=== PATIENT | male | born 1935 | race Caucasian/White ===

== ENCOUNTER → 2017-04-10 | Outpatient (CLI) | payer MEDICARE, OTHER, SELFPAY ==
[2017-04-10 14:10] LABS: Absolute Lymphocyte Count 1.05 X10^3/ul (0.83-4.51); Absolute Neutrophil Count 3.7 X10^3/uL (2.0-7.7); Basophil# 0.04 X10^3/uL; Basophil% 0.7 % (0-1); Eosinophil# 0.22 X10^3/uL; Eosinophils% 3.9 % (0-5); Hematocrit 41.6 % (40-54); Hemoglobin 13.2 g/dl (13.0-16.5); Lymphocyte # 1.05 X10^3/ul (4.0); Lymphocyte % 18.4 % (19-41); Mean Corp Hgb Conc 31.7 g/gl (32-36); Mean Corpuscular Hgb 31.2 pg (27.0-32.0); Mean Corpuscular Volume 98.3 fL (80-94); Mean Platelet Vol. 11.4 fl (6.2-12.0); Monocyte# 0.62 X10^3/uL; Monocyte% 10.9 % (0-10); Neutrophil # 3.74 X10^3/uL (2.7-7.7); Neutrophil % 65.6 % (47-70); Platelet Count 131 K/mm3 (150-450); RBC Distribution Width CV 15.4 % (11.6-14.6); RBC Distribution Width SD 54.1 fl (35.1-43.9); Red Blood Count 4.23 M/mm3 (4.6-6.2); White Blood Count 5.7 K/mm3 (4.4-11.0)
[2017-04-10 14:11] LABS: POSITIVE COUNT NO; POSITIVE DIFFERENTIAL NO; POSITIVE MORPHOLOGY NO
[2017-04-10 14:30] LABS: AST(SGOT) 18 U/L (15-37); Alanine Aminotransfer ALT/SGPT 26 U/L (16-61); Albumin, Serum 3.6 g/dL (3.2-5.0); Alkaline Phosphatase 71 U/L (45-117); Anion Gap 7 (5-15); BUN 23 mg/dL (7-18); BUN/Creat Ratio 14.4 RATIO (10-20); Calcium,Total 8.9 mg/dL (8.5-10.1); Chloride 107 mmol/L (98-107); EST Glomerular Filtration Rate 44 mL/min (>60); Est Glom Filt Rate - Afr Amer 54 mL/min (>60); Globulin 3.7 g/dL (2.2-4.2); Glucose 110 mg/dL (74-106); Protein, Total 7.3 g/dL (6.4-8.2); Sodium Level 141 mmol/L (136-145)
== END | disposition home or self-care (01) ==
PROVIDERS: Family Provider Family Medicine; PCP Family Medicine; Visit Provider Internal Medicine Rheumatology
DX: M06.4 Inflammatory polyarthropathy (principal); M1A.9XX1 Chronic gout, unspecified, with tophus (tophi); M17.0 Bilateral primary osteoarthritis of knee; M21.40 Flat foot [pes planus] (acquired), unspecified foot; I12.9 Hypertensive chronic kidney disease with stage 1 through stage 4 chronic kidney disease, or unspecified chronic kidney disease; N18.9 Chronic kidney disease, unspecified; E11.22 Type 2 diabetes mellitus with diabetic chronic kidney disease; E03.9 Hypothyroidism, unspecified; E78.5 Hyperlipidemia, unspecified; Z79.899 Other long term (current) drug therapy
CPT/HCPCS: 36415; 80053; 85025

== ENCOUNTER 2017-05-28 08:18 | Emergency (ER) | payer MEDICARE, OTHER, SELFPAY ==
[2017-05-28 08:19] VITALS: BP 118/70; PULSE 80; RESP 18; TEMP 36.2; O2SAT 94; BMI 28.8
--- NOTE | 2017-05-28 08:26 | EKG12_ITS ---
Test Reason : CP Blood Pressure : / mmHG Vent. Rate : 076 BPM Atrial Rate : 076 BPM P-R Int : 174 ms QRS Dur : 114 ms QT Int : 442 ms P-R-T Axes : 037 -17 113 degrees QTc Int : 497 ms Normal sinus rhythm ST & T wave abnormality, consider lateral ischemia Prolonged QT Abnormal ECG Confirmed by LEIDY GALLARDO, OLY ([id number]), editor sound VIRGILIO EVANS ([id number]) on 06/03/2017 8:54:47 AM Referred By: REANNA/ANISH Confirmed By:OLY FORBES MD
--- NOTE | 2017-05-28 08:30 | RAD_ITS ---
STUDY: X-RAY CHEST REASON FOR EXAM: Male, 81 years old. Chest pain. TECHNIQUE: Single AP portable view of the chest. COMPARISON: Comparison is made with prior study dated September 01, 2016. FINDINGS: EKG electrodes are seen. There now is evidence of increased markings with areas of confluence at the lung bases worse on the right side. This is suggestive bibasilar atelectasis and/or infiltrate superimposed on chronic interstitial scarring. There is blunting of both cosmetic angles. There is mild cardiac enlargement. A left-sided ICD is seen. Normal mediastinum and brooklynn. Normal visualized pulmonary arteries. There is atherosclerotic tortuosity of the aortic arch and descending thoracic aorta. There are diffuse degenerative changes of the visualized thoracic spine. Normal visualized ribs, clavicles, and shoulders. There is no demonstrated abnormality of the visualized soft tissue structures of the upper abdomen. RAD/Chest 1 View (Portable) IMPRESSION: Bibasilar atelectasis and/or infiltrate superimposed on bibasilar scarring. Blunting of both cost phrenic angles. Electronically Signed: Pablito Lloyd MD at 8:57 EDT Tel [phone], Service support ,
--- NOTE | 2017-05-28 08:50 | ED.DCSUM_ITS ---
- ER Visit Summary Date of Service: 05/28/17 Chief Complaint: Chest pain History of Present Illness: The patient is a 81 M history of non-insulin- dependent diabetes, renal insufficiency, hypothyroidism, gout, CAD with 3 cardiac stents, pacemaker defibrillator and prior CHF. Patient states the last 3 weeks he had intermittent mild dull aching chest discomfort worse at night. Also some shortness of breath. No hemoptysis. No leg pain or swelling. No recent travel, surgery or hospitalization. No history of DVT or PE. Physical Examination: Well appearing older male. Vital signs are stable and afebrile. His pulse ox is 94% room air no signs of hypoxia. No distress. HEENT exam unremarkable. Neck nontender no JVD. No lymphadenopathy. Lungs clear to auscultation bilaterally. Heart regular rate and rhythm no murmur. Chest wall nontender. Left-sided pacemaker defibrillator. Abdomen soft and nontender. Normal bowel sounds. No peritoneal signs. Moving all 4 extremities. Neurovascularly intact. Calves nontender without edema or cords. Test Results: EKG shows a sinus rhythm rate is 76 with inverted T waves in V4 5 and 6. Similar to her prior EKG with inverted T waves in 5 and 6 are new from an EKG from August 2016. CBC unremarkable with a platelet count of 118,000 previously was 126. Electrolytes unremarkable creatinine 1.7 which is his baseline normal gap. Troponin normal. Chest x-ray shows chronic changes bilateral atelectasis with scarring cannot rule out a right lower lobe infiltrate this is read by the radiologist and reviewed by myself also. Emergency Department Course and Treatment: Patient with atypical chest discomforts. Will undergo an evaluation including labs, EKG and chest x-ray. Treatment Plan: Will be started on Zithromax for a possible right lower lobe infiltrate he has had a chronic productive cough for weeks. But clinically looks well he is satting well we got him up and ambulating his pulse ox in the mid to high 90s the entire time. He does not have a white count or fever here. Disposition: discharge Impression: Acute atypical chest pain Rule out right lower lobe infiltrate This note was generated with [employer] dictation software. It may contain incorrect words, spelling, and punctuation that were not noted in review of the chart prior to signing ED Disposition - Plan for ED Patient: Chief Complaint: Chest Pain Referrals: Miguel Pineda MD [Primary Care Provider] -
[2017-05-28 09:08] VITALS: O2SAT 96
[2017-05-28] MEDS: Aspirin 81 MG TAB.CHEW 324 MG PO (09:13)
[2017-05-28 09:20] LABS: Absolute Lymphocyte Count 1.21 X10^3/ul (0.83-4.51); Absolute Neutrophil Count 3.1 X10^3/uL (2.0-7.7); Basophil# 0.02 X10^3/uL; Basophil% 0.4 % (0-1); Eosinophil# 0.24 X10^3/uL; Eosinophils% 4.7 % (0-5); Hematocrit 43.3 % (40-54); Hemoglobin 13.5 g/dl (13.0-16.5); Lymphocyte # 1.21 X10^3/ul (4.0); Lymphocyte % 23.6 % (19-41); Mean Corp Hgb Conc 31.2 g/gl (32-36); Mean Corpuscular Hgb 30.7 pg (27.0-32.0); Mean Corpuscular Volume 98.4 fL (80-94); Monocyte# 0.56 X10^3/uL; Monocyte% 10.9 % (0-10); Neutrophil % 60.4 % (47-70); Platelet Count 118 K/mm3 (150-450); RBC Distribution Width CV 15.4 % (11.6-14.6); RBC Distribution Width SD 55.4 fl (35.1-43.9); White Blood Count 5.1 K/mm3 (4.4-11.0)
[2017-05-28 09:22] LABS: POSITIVE COUNT NO; POSITIVE DIFFERENTIAL NO; POSITIVE MORPHOLOGY NO
[2017-05-28 09:38] LABS: BUN 25 mg/dL (7-18); Creatinine, Serum 1.72 mg/dL (0.70-1.30); Glucose 102 mg/dL (74-106)
[2017-05-28 09:39] LABS: Anion Gap 10 (5-15); BUN/Creat Ratio 14.5 RATIO (10-20); Calcium,Total 8.9 mg/dL (8.5-10.1); Chloride 110 mmol/L (98-107); EST Glomerular Filtration Rate 41 mL/min (>60); Est Glom Filt Rate - Afr Amer 49 mL/min (>60); Estimated Creatinine Clearance 35.87 ml/min; Potassium 4.1 mmol/L (3.5-5.1); Sodium Level 146 mmol/L (136-145)
--- NOTE | 2017-05-28 09:57 | NURSING ---
NO LW OR POA
[2017-05-28 10:12] VITALS: BP 134/95; PULSE 79; RESP 20; O2SAT 95
--- NOTE | 2017-05-28 10:34 | CASEMGMT ---
Social Work Note In to complete initial assessment as pt is anticipated to be admitted. Pt is accompanied by his daughter, Rupal, and SW introduced self and role at [facility]. The pt reports to live in a two-story home with his . States that he is able to manage the stairs, but he has everything he needs on the first level. Denies possession of or use of DME, and claims to be independent with ADLs. Confirms that his PCP is Dr. Pineda and he utilizes [facility] in [place]. Pt reports to have adequate supports among family that live locally and denies any anticipated discharge needs. Made aware that RN CM or SW will be available if discharge needs arise. Krystina Márquez, MANAGER GLOBAL, PROPERTY DISPOSAL OFFICER
[2017-05-28 11:36] VITALS: BP 142/75; PULSE 85; RESP 14; O2SAT 95; O2SAT 99
--- NOTE | 2017-05-28 11:47 | ED.DEP ---
ED Disposition - Plan for ED Patient: Disposition: Home or Assisted Living Chief Complaint: Chest Pain Instructions: ED Chest Pain Atypical Unkn Cause Prescriptions: Azithromycin [Zithromax] 250 mg PO DAILY #4 tab Referrals: Miguel Pineda MD [Primary Care Provider] - 3-5 Days Additional Instructions: Any of fluids and rest. Zithromax 1 pill a day starting tomorrow. Call and follow-up your primary care physician Dr. Pineda for repeat evaluation.
[2017-05-28 11:52] VITALS: BP 136/80; PULSE 72; RESP 14; O2SAT 96
[2017-05-28] MEDS: Azithromycin 250 MG Tablet 500 MG PO (11:57)
== END 2017-05-28 12:01 | disposition home or self-care (01) ==
PROVIDERS: Emergency Provider Emergency Medicine; Family Provider Family Medicine; PCP Family Medicine
DX: R07.89 Other chest pain (principal); I25.10 Atherosclerotic heart disease of native coronary artery without angina pectoris; E11.9 Type 2 diabetes mellitus without complications; I50.9 Heart failure, unspecified; E78.00 Pure hypercholesterolemia, unspecified; E03.9 Hypothyroidism, unspecified; M10.9 Gout, unspecified; Z95.5 Presence of coronary angioplasty implant and graft; Z95.810 Presence of automatic (implantable) cardiac defibrillator; Z79.02 Long term (current) use of antithrombotics/antiplatelets; Z79.82 Long term (current) use of aspirin; Z79.52 Long term (current) use of systemic steroids; Z79.899 Other long term (current) drug therapy
CPT/HCPCS: 71045; 80048; 84484; 85025; 93005; 99285; A4216

== ENCOUNTER → 2017-07-08 11:00 | Outpatient (CLI) | payer MEDICARE, OTHER, SELFPAY ==
[2017-07-08 12:29] LABS: Absolute Lymphocyte Count 1.08 X10^3/ul (0.83-4.51); Absolute Neutrophil Count 4.1 X10^3/uL (2.0-7.7); Basophil# 0.02 X10^3/uL; Basophil% 0.3 % (0-1); Eosinophils% 3.3 % (0-5); Hematocrit 43.8 % (40-54); Hemoglobin 13.9 g/dl (13.0-16.5); Lymphocyte # 1.08 X10^3/ul (4.0); Lymphocyte % 17.9 % (19-41); Mean Corp Hgb Conc 31.7 g/gl (32-36); Mean Corpuscular Hgb 31.4 pg (27.0-32.0); Mean Corpuscular Volume 99.1 fL (80-94); Mean Platelet Vol. 11.3 fl (6.2-12.0); Neutrophil # 4.12 X10^3/uL (2.7-7.7); Neutrophil % 68.3 % (47-70); Platelet Count 143 K/mm3 (150-450); RBC Distribution Width CV 15.2 % (11.6-14.6); RBC Distribution Width SD 54.5 fl (35.1-43.9); Red Blood Count 4.42 M/mm3 (4.6-6.2)
[2017-07-08 12:32] LABS: POSITIVE COUNT NO; POSITIVE DIFFERENTIAL NO; POSITIVE MORPHOLOGY NO
[2017-07-08 13:30] LABS: AST(SGOT) 19 U/L (15-37); Alanine Aminotransfer ALT/SGPT 20 U/L (16-61); Albumin, Serum 3.6 g/dL (3.2-5.0); Alkaline Phosphatase 75 U/L (45-117); Anion Gap 9 (5-15); BUN 34 mg/dL (7-18); BUN/Creat Ratio 17.3 RATIO (10-20); Chloride 111 mmol/L (98-107); Creatinine, Serum 1.96 mg/dL (0.70-1.30); EST Glomerular Filtration Rate 35 mL/min (>60); Est Glom Filt Rate - Afr Amer 42 mL/min (>60); Globulin 3.6 g/dL (2.2-4.2); Glucose 84 mg/dL (74-106); Protein, Total 7.2 g/dL (6.4-8.2); Sodium Level 147 mmol/L (136-145); Uric Acid 8.5 mg/dL (3.5-7.2)
== END ==
PROVIDERS: Family Provider Family Medicine; PCP Family Medicine; Visit Provider Internal Medicine Rheumatology
DX: M06.4 Inflammatory polyarthropathy (principal); Z79.899 Other long term (current) drug therapy; M15.9 Polyosteoarthritis, unspecified; M1A.9XX1 Chronic gout, unspecified, with tophus (tophi); M17.0 Bilateral primary osteoarthritis of knee; M21.40 Flat foot [pes planus] (acquired), unspecified foot; E11.22 Type 2 diabetes mellitus with diabetic chronic kidney disease; N18.9 Chronic kidney disease, unspecified; I12.9 Hypertensive chronic kidney disease with stage 1 through stage 4 chronic kidney disease, or unspecified chronic kidney disease
CPT/HCPCS: 36415; 80053; 84550; 85025

== ENCOUNTER 2017-08-04 13:23 | Emergency (ER) | payer OTHER, MEDICARE, SELFPAY ==
--- NOTE | 2017-08-04 13:23 | DT_ITS ---
This patient was seen during an EMR downtime July 28, 2017 - August 04, 2017. This patient may have a combination of paper and electronic documentation or all paper documentation. All documentation is viewable within the e-chart portion of [employer] for each patient visit.
[2017-08-04 13:24] VITALS: BP 120/70; PULSE 74; RESP 16; TEMP 35.9; O2SAT 96; BMI 28.1
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
[2017-08-04 16:49] VITALS: BP 129/58; PULSE 80; RESP 18; O2SAT 94
== END 2017-08-04 16:50 | disposition home or self-care (01) ==
PROVIDERS: Emergency Provider Emergency Medicine; Family Provider Family Medicine; PCP Family Medicine
DX: S20.219A Contusion of unspecified front wall of thorax, initial encounter (principal); V49.60XA Unspecified car occupant injured in collision with unspecified motor vehicles in traffic accident, initial encounter; Y93.9 Activity, unspecified; Y92.9 Unspecified place or not applicable; Y99.9 Unspecified external cause status; I25.10 Atherosclerotic heart disease of native coronary artery without angina pectoris; I47.2 Ventricular tachycardia; I42.9 Cardiomyopathy, unspecified; I12.9 Hypertensive chronic kidney disease with stage 1 through stage 4 chronic kidney disease, or unspecified chronic kidney disease; E11.22 Type 2 diabetes mellitus with diabetic chronic kidney disease; N18.3 Chronic kidney disease, stage 3 (moderate); E78.5 Hyperlipidemia, unspecified; E03.9 Hypothyroidism, unspecified; Z79.02 Long term (current) use of antithrombotics/antiplatelets; Z79.82 Long term (current) use of aspirin; Z79.899 Other long term (current) drug therapy; Z95.5 Presence of coronary angioplasty implant and graft; Z95.810 Presence of automatic (implantable) cardiac defibrillator
CPT/HCPCS: 71046; 71100; 99282

== ENCOUNTER → 2017-10-07 08:37 | Outpatient (CLI) | payer MEDICARE, OTHER, SELFPAY ==
[2017-10-07 09:56] LABS: AST(SGOT) 16 U/L (15-37); Alanine Aminotransfer ALT/SGPT 24 U/L (16-61); Albumin, Serum 3.7 g/dL (3.2-5.0); Alkaline Phosphatase 66 U/L (45-117); Anion Gap 8 (5-15); BUN 36 mg/dL (7-18); BUN/Creat Ratio 15.9 RATIO (10-20); Bilirubin, Direct 0.28 mg/dL (0.00-0.30); Calcium,Total 9.1 mg/dL (8.5-10.1); Chloride 106 mmol/L (98-107); Cholesterol 155 mg/dL (200); Creatinine, Serum 2.27 mg/dL (0.70-1.30); EST Glomerular Filtration Rate 30 mL/min (>60); Est Glom Filt Rate - Afr Amer 36 mL/min (>60); Globulin 4.1 g/dL (2.2-4.2); Glucose 97 mg/dL (74-106); High Density Lipoprotein 41 mg/dL; Magnesium 2.1 mg/dL (1.6-2.6); Potassium 4.6 mmol/L (3.5-5.1); Protein, Total 7.8 g/dL (6.4-8.2); Sodium Level 145 mmol/L (136-145); Triglycerides 144 mg/dL; Very Low Density Lipoprotein 29 mg/dL (5-40)
== END ==
PROVIDERS: Family Provider Family Medicine; PCP Family Medicine; Visit Provider Nurse Practitioner Family
DX: I70.219 Atherosclerosis of native arteries of extremities with intermittent claudication, unspecified extremity (principal); I25.10 Atherosclerotic heart disease of native coronary artery without angina pectoris; I47.2 Ventricular tachycardia; N18.3 Chronic kidney disease, stage 3 (moderate); E78.5 Hyperlipidemia, unspecified; R06.09 Other forms of dyspnea
CPT/HCPCS: 36415; 80048; 80061; 80076; 83735

== ENCOUNTER → 2017-11-07 12:19 | Outpatient (CLI) | payer MEDICARE, OTHER, SELFPAY ==
[2017-11-07 13:55] LABS: Absolute Lymphocyte Count 0.92 X10^3/ul (0.83-4.51); Basophil# 0.04 X10^3/uL; Basophil% 0.6 % (0-1); Eosinophil# 0.18 X10^3/uL; Eosinophils% 2.6 % (0-5); Hematocrit 42.7 % (40-54); Hemoglobin 13.7 g/dl (13.0-16.5); Lymphocyte # 0.92 X10^3/ul (4.0); Lymphocyte % 13.5 % (19-41); Mean Corp Hgb Conc 32.1 g/gl (32-36); Mean Corpuscular Hgb 32.2 pg (27.0-32.0); Mean Corpuscular Volume 100.5 fL (80-94); Monocyte# 0.61 X10^3/uL; Neutrophil # 5.04 X10^3/uL (2.7-7.7); POSITIVE COUNT NO; POSITIVE DIFFERENTIAL NO; POSITIVE MORPHOLOGY NO; Platelet Count 179 K/mm3 (150-450); RBC Distribution Width CV 14.7 % (11.6-14.6); RBC Distribution Width SD 53.5 fl (35.1-43.9); Red Blood Count 4.25 M/mm3 (4.6-6.2); White Blood Count 6.8 K/mm3 (4.4-11.0)
[2017-11-07 14:32] LABS: ALB/GLOB Ratio 0.9 RATIO (0.9-2.4); AST(SGOT) 19 U/L (15-37); Alanine Aminotransfer ALT/SGPT 23 U/L (16-61); Albumin, Serum 3.4 g/dL (3.2-5.0); Alkaline Phosphatase 63 U/L (45-117); Anion Gap 8 (5-15); BUN 39 mg/dL (7-18); BUN/Creat Ratio 17.6 RATIO (10-20); Chloride 108 mmol/L (98-107); Creatinine, Serum 2.21 mg/dL (0.70-1.30); EST Glomerular Filtration Rate 30 mL/min (>60); Est Glom Filt Rate - Afr Amer 37 mL/min (>60); Globulin 3.9 g/dL (2.2-4.2); Glucose 91 mg/dL (74-106); Potassium 4.3 mmol/L (3.5-5.1); Protein, Total 7.3 g/dL (6.4-8.2); Sodium Level 144 mmol/L (136-145)
== END ==
PROVIDERS: Family Provider Family Medicine; PCP Family Medicine; Visit Provider Internal Medicine Rheumatology
DX: M06.4 Inflammatory polyarthropathy (principal); M17.0 Bilateral primary osteoarthritis of knee; M1A.9XX1 Chronic gout, unspecified, with tophus (tophi); Z79.899 Other long term (current) drug therapy
CPT/HCPCS: 36415; 80053; 84550; 85025

== ENCOUNTER → 2018-01-30 14:38 | Outpatient (CLI) | payer MEDICARE, OTHER, SELFPAY ==
[2018-01-30 16:14] LABS: Absolute Lymphocyte Count 1.24 X10^3/ul (0.83-4.51); Absolute Neutrophil Count 4.5 X10^3/uL (2.0-7.7); Basophil# 0.01 X10^3/uL; Basophil% 0.2 % (0-1); Eosinophil# 0.28 X10^3/uL; Eosinophils% 4.2 % (0-5); Hematocrit 44.7 % (40-54); Lymphocyte # 1.24 X10^3/ul (4.0); Lymphocyte % 18.7 % (19-41); Mean Corp Hgb Conc 31.3 g/gl (32-36); Mean Corpuscular Hgb 31.7 pg (27.0-32.0); Mean Corpuscular Volume 101.4 fL (80-94); Mean Platelet Vol. 9.9 fl (6.2-12.0); Monocyte# 0.64 X10^3/uL; Monocyte% 9.6 % (0-10); Neutrophil # 4.45 X10^3/uL (2.7-7.7); Platelet Count 186 K/mm3 (150-450); RBC Distribution Width CV 14.8 % (11.6-14.6); RBC Distribution Width SD 54.6 fl (35.1-43.9); Red Blood Count 4.41 M/mm3 (4.6-6.2); White Blood Count 6.6 K/mm3 (4.4-11.0)
[2018-01-30 16:28] LABS: POSITIVE COUNT NO; POSITIVE DIFFERENTIAL NO; POSITIVE MORPHOLOGY NO
[2018-01-30 16:35] LABS: ALB/GLOB Ratio 0.8 RATIO (0.9-2.4); AST(SGOT) 19 U/L (15-37); Alanine Aminotransfer ALT/SGPT 23 U/L (16-61); Albumin, Serum 3.3 g/dL (3.2-5.0); Alkaline Phosphatase 67 U/L (45-117); Anion Gap 9 (5-15); BUN 31 mg/dL (7-18); BUN/Creat Ratio 15.6 RATIO (10-20); Calcium,Total 9.1 mg/dL (8.5-10.1); Chloride 107 mmol/L (98-107); Creatinine, Serum 1.99 mg/dL (0.70-1.30); EST Glomerular Filtration Rate 34 mL/min (>60); Est Glom Filt Rate - Afr Amer 42 mL/min (>60); Globulin 4.2 g/dL (2.2-4.2); Glucose 74 mg/dL (74-106); Potassium 4.1 mmol/L (3.5-5.1); Protein, Total 7.5 g/dL (6.4-8.2); Sodium Level 146 mmol/L (136-145)
== END ==
PROVIDERS: Family Provider Family Medicine; PCP Family Medicine; Referring Provider Internal Medicine Rheumatology; Visit Provider Internal Medicine Rheumatology
DX: M06.4 Inflammatory polyarthropathy (principal); M1A.9XX1 Chronic gout, unspecified, with tophus (tophi); M17.0 Bilateral primary osteoarthritis of knee; N18.9 Chronic kidney disease, unspecified; I25.10 Atherosclerotic heart disease of native coronary artery without angina pectoris; I42.9 Cardiomyopathy, unspecified; N40.1 Benign prostatic hyperplasia with lower urinary tract symptoms; Z79.899 Other long term (current) drug therapy; Z95.810 Presence of automatic (implantable) cardiac defibrillator
CPT/HCPCS: 36415; 80053; 85025

== ENCOUNTER → 2018-04-01 13:20 | Outpatient (CLI) | payer MEDICARE, OTHER, SELFPAY ==
[2018-03-26 09:01] VITALS: BMI 27.4
[2018-04-01 14:31] LABS: Anion Gap 7 (5-15); BUN 36 mg/dL (7-18); BUN/Creat Ratio 16.1 RATIO (10-20); Calcium,Total 9.1 mg/dL (8.5-10.1); Chloride 108 mmol/L (98-107); Creatinine, Serum 2.23 mg/dL (0.70-1.30); EST Glomerular Filtration Rate 30 mL/min (>60); Est Glom Filt Rate - Afr Amer 36 mL/min (>60); Glucose 129 mg/dL (74-106); Potassium 4.2 mmol/L (3.5-5.1); Sodium Level 143 mmol/L (136-145)
== END ==
PROVIDERS: Family Provider Family Medicine; PCP Family Medicine; Referring Provider Nurse Practitioner Family; Visit Provider Nurse Practitioner Family
DX: I10 Essential (primary) hypertension (principal); I25.10 Atherosclerotic heart disease of native coronary artery without angina pectoris; I42.0 Dilated cardiomyopathy; E78.2 Mixed hyperlipidemia; G47.10 Hypersomnia, unspecified; Z95.810 Presence of automatic (implantable) cardiac defibrillator
CPT/HCPCS: 36415; 80048

== ENCOUNTER → 2018-04-02 20:08 | Outpatient (CLI) | payer MEDICARE, OTHER, SELFPAY ==
[2018-03-26 09:01] VITALS: BMI 27.4
== END ==
PROVIDERS: Family Provider Family Medicine; PCP Family Medicine; Referring Provider Nurse Practitioner Family; Visit Provider Nurse Practitioner Family
DX: G47.33 Obstructive sleep apnea (adult) (pediatric) (principal)
CPT/HCPCS: 95811

== ENCOUNTER → 2018-04-27 | Outpatient (CLI) | payer MEDICARE, OTHER, SELFPAY ==
[2018-04-16 08:41] VITALS: BMI 27.0
[2018-04-27 09:37] VITALS: PULSE 69; PULSE 70; PULSE 74; PULSE 76; PULSE 78; PULSE 79; PULSE 80; PULSE 83; O2SAT 94; O2SAT 95; O2SAT 96; O2SAT 97
--- NOTE | 2018-04-28 17:21 | PCM.PSN.6M ---
PSN 6 Minute Walk Test - 6 Minute Walk Test 6 Minute Walk Test: 6 Minute Walk Test PSN:6-Minute Walk Test Start: 04/27/18 09:36 Freq: Status: Active Protocol: [id number] Document 04/27/18 09:37 ZULEMA (Rec: 04/27/18 09:43 ZULEMA [id number]) 6 Minute Walk Test Date Performed 04/27/18 Time Performed 09:00 Height 5 ft 11 in Weight: 190 lb Weight in Pounds 190.[address]: Rupal Castillo Assistive device used: None Pre-test Oxygen Delivery Method Room Air Pulse Ox (%) 96 Pulse Rate (60-100 beats/min) 69 Dyspnea Alejandra Scale (0-10) 0 Exertion Alejandra Scale (6-20) 6 1st minute Oxygen Delivery Method Room Air Pulse Ox (%) 96 Pulse Rate (60-100 beats/min) 74 2nd minute Oxygen Delivery Method Room Air Pulse Ox (%) 96 Pulse Rate (60-100 beats/min) 76 3rd minute Oxygen Delivery Method Room Air Pulse Ox (%) 95 Pulse Rate (60-100 beats/min) 78 4th minute Oxygen Delivery Method Room Air Pulse Ox (%) 94 Pulse Rate (60-100 beats/min) 79 5th minute Oxygen Delivery Method Room Air Pulse Ox (%) 94 Pulse Rate (60-100 beats/min) 80 6th minute Oxygen Delivery Method Room Air Pulse Ox (%) 96 Pulse Rate (60-100 beats/min) 83 Dyspnea Alejandra Scale (0-10) 2 Exertion Alejandra Scale (6-20) 13 Post-test Oxygen Delivery Method Room Air Pulse Ox (%) 97 Pulse Rate (60-100 beats/min) 70 Full Laps Walked 15 Partial Lap, Number of Tiles Walked 40 Total Distance Walked (ft) 925 - Interpretation Interpretation: The patient ambulated 925 feet over the course of 6 minutes beginning on room air without assistive devices or breaks. Pretesting oxygen saturation was noted to be 96% on room air. With ambulation, the kamari oxygen saturation was 94%. There was no significant exertional oxygen desaturation. - Recommendations Recommendations: There is no indication for the use of supplemental oxygen at this time.
== END | disposition home or self-care (01) ==
LOC: PSN 08:58
PROVIDERS: Family Provider Family Medicine; PCP Family Medicine; Referring Provider Nurse Practitioner Acute Care; Visit Provider Nurse Practitioner Acute Care
DX: R06.00 Dyspnea, unspecified (principal)
CPT/HCPCS: 94618

== ENCOUNTER → 2018-05-05 08:40 | Outpatient (CLI) | payer MEDICARE, OTHER, SELFPAY ==
[2018-04-16 08:41] VITALS: BMI 27.0
[2018-05-05 09:55] LABS: Anion Gap 10 (5-15); BUN 41 mg/dL (7-18); BUN/Creat Ratio 20.1 RATIO (10-20); Calcium,Total 9.2 mg/dL (8.5-10.1); Chloride 105 mmol/L (98-107); Creatinine, Serum 2.04 mg/dL (0.70-1.30); EST Glomerular Filtration Rate 33 mL/min (>60); Est Glom Filt Rate - Afr Amer 40 mL/min (>60); Glucose 107 mg/dL (74-106); Potassium 4.4 mmol/L (3.5-5.1); Sodium Level 143 mmol/L (136-145)
== END ==
PROVIDERS: Family Provider Family Medicine; PCP Family Medicine; Referring Provider Nurse Practitioner Family; Visit Provider Nurse Practitioner Family
DX: N18.3 Chronic kidney disease, stage 3 (moderate) (principal)
CPT/HCPCS: 36415; 80048

== ENCOUNTER → 2018-05-27 10:58 | Outpatient (CLI) | payer MEDICARE, OTHER, SELFPAY ==
[2018-05-08 09:05] VITALS: BMI 27.3
[2018-05-27 12:24] LABS: Absolute Lymphocyte Count 1.24 X10^3/ul (0.83-4.51); Absolute Neutrophil Count 4.9 X10^3/uL (2.0-7.7); Basophil# 0.03 X10^3/uL; Basophil% 0.4 % (0-1); Eosinophil# 0.23 X10^3/uL; Eosinophils% 3.2 % (0-5); Hematocrit 42.7 % (40-54); Hemoglobin 13.6 g/dl (13.0-16.5); Lymphocyte # 1.24 X10^3/ul (4.0); Lymphocyte % 17.2 % (19-41); Mean Corp Hgb Conc 31.9 g/gl (32-36); Mean Corpuscular Hgb 31.6 pg (27.0-32.0); Mean Corpuscular Volume 99.1 fL (80-94); Mean Platelet Vol. 9.6 fl (6.2-12.0); Monocyte# 0.85 X10^3/uL; Monocyte% 11.8 % (0-10); Neutrophil # 4.87 X10^3/uL (2.7-7.7); Neutrophil % 67.3 % (47-70); Platelet Count 175 K/mm3 (150-450); RBC Distribution Width CV 15.5 % (11.6-14.6); RBC Distribution Width SD 56.4 fl (35.1-43.9); Red Blood Count 4.31 M/mm3 (4.6-6.2); White Blood Count 7.2 K/mm3 (4.4-11.0)
[2018-05-27 12:30] LABS: POSITIVE COUNT NO; POSITIVE DIFFERENTIAL NO; POSITIVE MORPHOLOGY NO
[2018-05-27 12:35] LABS: ALB/GLOB Ratio 0.8 RATIO (0.9-2.4); AST(SGOT) 21 U/L (15-37); Alanine Aminotransfer ALT/SGPT 26 U/L (16-61); Albumin, Serum 3.4 g/dL (3.2-5.0); Alkaline Phosphatase 98 U/L (45-117); Anion Gap 6 (5-15); BUN 39 mg/dL (7-18); BUN/Creat Ratio 18.4 RATIO (10-20); Calcium,Total 9.1 mg/dL (8.5-10.1); Chloride 107 mmol/L (98-107); Creatinine, Serum 2.12 mg/dL (0.70-1.30); EST Glomerular Filtration Rate 32 mL/min (>60); Est Glom Filt Rate - Afr Amer 39 mL/min (>60); Globulin 4.4 g/dL (2.2-4.2); Glucose 106 mg/dL (74-106); Protein, Total 7.8 g/dL (6.4-8.2); Sodium Level 143 mmol/L (136-145)
== END ==
PROVIDERS: Family Provider Family Medicine; PCP Family Medicine; Referring Provider Internal Medicine Rheumatology; Visit Provider Internal Medicine Rheumatology
DX: M06.4 Inflammatory polyarthropathy (principal); M17.0 Bilateral primary osteoarthritis of knee; M1A.9XX1 Chronic gout, unspecified, with tophus (tophi); I25.10 Atherosclerotic heart disease of native coronary artery without angina pectoris; M21.40 Flat foot [pes planus] (acquired), unspecified foot; E11.9 Type 2 diabetes mellitus without complications; I42.9 Cardiomyopathy, unspecified; N40.1 Benign prostatic hyperplasia with lower urinary tract symptoms; Z79.899 Other long term (current) drug therapy; Z95.810 Presence of automatic (implantable) cardiac defibrillator
CPT/HCPCS: 36415; 80053; 85025

== ENCOUNTER 2018-07-31 18:43 | Emergency (ER) | payer MEDICARE, OTHER, SELFPAY ==
[2018-06-16 08:43] VITALS: BMI 28.0
[2018-07-31 18:44] VITALS: BP 101/59; PULSE 80; RESP 18; TEMP 37.4; O2SAT 96; BMI 27.4
[2018-07-31 20:03] VITALS: BP 133/61; PULSE 79; RESP 16; TEMP 36.9; O2SAT 96
--- NOTE | 2018-07-31 20:48 | RAD_ITS ---
STUDY: X-RAY - RIGHT TIBIA AND FIBULA REASON FOR EXAM: Male, 82 years old. Cellulitis status post fall TECHNIQUE: 4 view(s) of the tibia and fibula were obtained. COMPARISON: None. FINDINGS: Normal visualized tibia. Normal visualized fibula. There is partially visualized degenerative changes in the medial lateral compartments with chondrocalcinosis. Fracture line is not identified within the tibia and fibula. There is a degenerative partially visualized appearance of the proximal foot. There is soft tissue edema about the ankle. RAD/Tibia & Fibula 2 Views IMPRESSION: Soft tissue edema about the ankle and foot. No visible fracture. Degenerative change right knee joint. Electronically Signed: Mylene Norton MD at 21:43 EDT Tel , Service support ,
--- NOTE | 2018-07-31 20:50 | ED.VIS.LOWEX ---
History of Present Illness Chief Complaint: Cellulitis Informant: Patient, Family Occurred: Weeks - 1 Context: Gradual Onset Quality of Pain: Aching Location: right leg Current Severity: Moderate Maximum Severity: Moderate Worsened by: walking, palpation Relieved by: rest Associated Symptoms: Negative for: Parasthesia, Weakness, Loss of Funtion Narrative: Patient states he was in the field and stepped in a hole accidentally with his right lower extremity. The next day, he noticed significant amount of redness at the medial aspect of his right ankle that progressively hurt more. Saw PCP couple days later, which was 5 days ago, they put him on clindamycin which seemed to cleared up almost completely. They state now that same type of rash is recurring a little further proximal but it looks worse but hurts similarly it is red. No other injury. No fevers or systemic symptoms. - Past Medical History (1) Cardiomyopathy Status: Chronic (2) Chronic renal failure, stage 3 (moderate) Status: Chronic (3) Coronary atherosclerosis of [place] coronary vessel Status: Chronic (4) Diabetes mellitus type 2 in nonobese Status: Chronic (5) HLD (hyperlipidemia) Status: Chronic (6) HTN (hypertension) Status: Chronic (7) History of implantable cardioverter-defibrillator (ICD) placement Status: Chronic Comment: Implant: 06/2000; Generator change: 03/17/2008 (8) Hypersomnolence disorder Status: Chronic (9) Hypothyroidism Status: Chronic (10) Paroxysmal ventricular tachycardia Status: Chronic Past Medical History - Allergies and Home Meds Allergies/Adverse Reactions: Allergies atorvastatin [From Lipitor] Adverse Reaction (Verified 05/08/18 09:06) myalgia leflunomide [From Arava] Adverse Reaction (Verified 05/08/18 09:06) PROBLEMS WITH MY FEET simvastatin [From Zocor] Adverse Reaction (Verified 05/08/18 09:06) myalgia Primary Care Physician: Miguel Pineda MD [Primary Care Provider] - Surgical History: angioplasty, appendectomy Lives: Spouse/ Significant Other Smoking Status: Former smoker - Family History Paternal Family History: Family History (Last Reviewed 06/16/18 @ 08:46 by Polina Castro) Mother Alzheimers disease Brother Cancer Brother Hypertension Brother CAD (coronary artery disease) Sister CAD (coronary artery disease) Sister Breast cancer Family History: Reports: Pulmonary Disease - emphysema, s/p lobectomy Maternal Family History: Family History (Last Reviewed 06/16/18 @ 08:46 by Polina Castro) Mother Alzheimers disease Brother Cancer Brother Hypertension Brother CAD (coronary artery disease) Sister CAD (coronary artery disease) Sister Breast cancer Family History: Reports: Dementia, Heart Disease Sibling Family History: Family History (Last Reviewed 06/16/18 @ 08:46 by Polina Castro) Mother Alzheimers disease Brother Cancer Brother Hypertension Brother CAD (coronary artery disease) Sister CAD (coronary artery disease) Sister Breast cancer Family History: Reports: Heart Disease Offspring Family History: Family History (Last Reviewed 06/16/18 @ 08:46 by Polina Castro) Mother Alzheimers disease Brother Cancer Brother Hypertension Brother CAD (coronary artery disease) Sister CAD (coronary artery disease) Sister Breast cancer Family History: Reports: No pertinent history Review of Systems General: Denies: Chills, Fever, Sweats Eyes: Denies: Visual changes - bilaterally, Diplopia ENT: Denies: Rhinorrhea, Sore throat Cardiovascular: Denies: Chest pain, Palpitations Respiratory: Denies: Dyspnea, Cough, Dyspnea on exertion Gastrointestinal: Denies: Abdominal pain, Nausea, Vomiting, Diarrhea, Melena, Hematochezia Genitourinary: Denies: Dysuria, Hematuria, Frequency Musculoskeletal: Reports: Extremity Pain. Denies: Back pain Skin: Reports: Rash. Denies: Wounds Neurological: Denies: Headache, Weakness, Numbness Physical Exam Vital Signs/Narrative: Vital Signs Temp Pulse Resp BP Pulse Ox 07/31/18 20:03 98.4 F 79 16 133/61 H 96 07/31/18 18:44 99.3 F H 80 18 101/59 L 96 Inital Vital Signs reviewed: Yes - Extremity Exam Right Ankle: - - Nonblanching, purpuric, hot, tender area medial aspect of distal right lower leg, proximal to and not involving the ankle joint/medial malleolus. No lymphangitis. Few petechiae at the perimeter that are fine. No bullae, obvious open skin nidus for infection, vesicles/blisters, or other lesions. General: Well nourished, Well developed Head: Normocephalic, Atraumatic Eyes: Perrl, EOMI ENT: No Trauma, Moist Mucous Membranes Neck: Nontender, Full ROM Cardiovascular: Regular rate, Regular rhythm, No murmurs Respiratory: No distress, CTA bilaterally, Chest nontender Skin: Rash - Right lower leg, see above Neurological: Alert, Oriented x3, Cranial nerves II-XII grossly intact, Normal Strength, Normal Sensation Psychological: Normal affect, Normal Mood Diagnostic/Tx/Re-eval Impressions Tibia/Fibula X-Ray 07/31/18 20:48 IMPRESSION: Soft tissue edema about the ankle and foot. No visible fracture. Degenerative change right knee joint. Electronically Signed: Mylene Norton MD at 21:43 EDT Tel , Service support , 07/31/18 20:48 Xray Tibia [Tibia & Fibula 2 Views] [RAD] Stat Laboratory Results 07/31/18 07/31/18 21:03 21:03 WBC 8.7 RBC 4.17 L Hgb 12.9 L Hct 41.0 MCV 98.3 H MCH 30.9 MCHC 31.5 L RDW 16.3 H RDW Differential 58.4 H Plt Count 163 MPV 9.8 Immature Gran % (Auto) 0.500 Neut % (Auto) 81.7 H Lymph % (Auto) 8.7 L [place] % (Auto) 7.3 Eos % (Auto) 1.7 Baso % (Auto) 0.1 Absolute Neuts (auto) 7.1 Absolute Lymphs (auto) 0.76 L Total Counted Not Reportable Sodium 140 Potassium 4.1 Chloride 105 Carbon Dioxide 27.0 Anion Gap 8 BUN 38 H Creatinine 2.03 H Estim Creat Clear Calc 29.88 Est GFR (MDRD) Af Amer 41 L Est GFR (MDRD) Non-Af 34 L BUN/Creatinine Ratio 18.7 Glucose 121 H Calcium 8.9 - Medical Decision Making This is a fairly unusual area of rash, it certainly could be cellulitic, it is very painful to palpation and warm. I think it should be treated as a possible bacterial infection until proven otherwise, and as such, he was given a dose of IV vancomycin 15 mg/kg. He clinically is well and not septic, he just has discomfort locally at the affected area. X-ray showed no gas in fascial planes, he has no bandemia or significant leukocytosis although with the 8.6 white count that he does have, there is a leftward shift. He has chronic renal insufficiency that is stable. He was here for over 4 hours. On reevaluation I do not think the wound has expanded to any significant degree. I outlined the wound for family to follow. If traumatic contusion/hematoma, I do not have an explanation for it disappearing and reappearing in a more proximal location; if infectious, I still do not have a good explanation as to why that would happen. Its appearance could also be consistent with a fungal infection, however he is having more pain than one would usually have with this, he had no thorns or other plants injure him in this area that he knows of. Still bacterial infection would be more likely to be limb threatening then these other issues, hence my treatment. He does not want to take the clindamycin anymore because he states it is very hard on his stomach. I will place him on Keflex 4 times daily and I advise close outpatient follow-up, we discussed at length at the bedside, they are welcome to return for any worsening symptoms, we discussed symptoms of sepsis. They are comfortable with this overall plan. ED Disposition - Plan for ED Patient: Disposition: Home or Assisted Living Diagnosis: Cellulitis of right lower leg Instructions: Discharge Instructions for Cellulitis Prescriptions: Cephalexin [Keflex] 500 mg PO Q6 #40 capsule Referrals: Miguel Pineda MD [Primary Care Provider] - 3-5 Days
[2018-07-31 21:00] VITALS: BP 125/77; PULSE 74; RESP 16; TEMP 36.7; O2SAT 97
--- NOTE | 2018-07-31 21:09 | ED.RN ---
consulted on lactic acid and blood cultures x2 prior to the start of antibiotics. states they are not need. start vancomycin without them. kaitlin boss [id number]
[2018-07-31 21:15] LABS: Absolute Lymphocyte Count 0.76 X10^3/ul (0.83-4.51); Absolute Neutrophil Count 7.1 X10^3/uL (2.0-7.7); Basophil# 0.01 X10^3/uL; Basophil% 0.1 % (0-1); Eosinophil# 0.15 X10^3/uL; Eosinophils% 1.7 % (0-5); Hemoglobin 12.9 g/dl (13.0-16.5); Lymphocyte # 0.76 X10^3/ul (4.0); Lymphocyte % 8.7 % (19-41); Mean Corp Hgb Conc 31.5 g/gl (32-36); Mean Corpuscular Hgb 30.9 pg (27.0-32.0); Mean Corpuscular Volume 98.3 fL (80-94); Mean Platelet Vol. 9.8 fl (6.2-12.0); Monocyte# 0.64 X10^3/uL; Monocyte% 7.3 % (0-10); Neutrophil # 7.11 X10^3/uL (2.7-7.7); Neutrophil % 81.7 % (47-70); Platelet Count 163 K/mm3 (150-450); RBC Distribution Width CV 16.3 % (11.6-14.6); RBC Distribution Width SD 58.4 fl (35.1-43.9); Red Blood Count 4.17 M/mm3 (4.6-6.2); White Blood Count 8.7 K/mm3 (4.4-11.0)
[2018-07-31 21:17] LABS: POSITIVE COUNT NO; POSITIVE DIFFERENTIAL NO; POSITIVE MORPHOLOGY NO
[2018-07-31 21:27] LABS: Anion Gap 8 (5-15); BUN 38 mg/dL (7-18); BUN/Creat Ratio 18.7 RATIO (10-20); Calcium,Total 8.9 mg/dL (8.5-10.1); Chloride 105 mmol/L (98-107); Creatinine, Serum 2.03 mg/dL (0.70-1.30); EST Glomerular Filtration Rate 34 mL/min (>60); Est Glom Filt Rate - Afr Amer 41 mL/min (>60); Estimated Creatinine Clearance 29.88 ml/min; Glucose 121 mg/dL (74-106); Potassium 4.1 mmol/L (3.5-5.1); Sodium Level 140 mmol/L (136-145)
[2018-07-31 22:13] VITALS: BP 120/66; PULSE 70; RESP 15; O2SAT 96
[2018-07-31 22:14] VITALS: BP 124/72; PULSE 72; RESP 14; TEMP 36.8; O2SAT 97
[2018-07-31 23:41] VITALS: BP 127/70; PULSE 72; RESP 14; O2SAT 99
== END 2018-07-31 23:42 | disposition home or self-care (01) ==
PROVIDERS: Emergency Provider Emergency Medicine; Family Provider Family Medicine; PCP Family Medicine
DX: L03.115 Cellulitis of right lower limb (principal); E11.22 Type 2 diabetes mellitus with diabetic chronic kidney disease; I12.9 Hypertensive chronic kidney disease with stage 1 through stage 4 chronic kidney disease, or unspecified chronic kidney disease; N18.3 Chronic kidney disease, stage 3 (moderate); I47.2 Ventricular tachycardia; I25.10 Atherosclerotic heart disease of native coronary artery without angina pectoris; I42.9 Cardiomyopathy, unspecified; E78.5 Hyperlipidemia, unspecified; E03.9 Hypothyroidism, unspecified; G47.10 Hypersomnia, unspecified; Z79.02 Long term (current) use of antithrombotics/antiplatelets; Z79.82 Long term (current) use of aspirin; Z79.52 Long term (current) use of systemic steroids; Z79.899 Other long term (current) drug therapy; Z87.891 Personal history of nicotine dependence; Z95.810 Presence of automatic (implantable) cardiac defibrillator
CPT/HCPCS: 73590; 80048; 85025; 96365; 96366; 99283; J7030; J7050; A4216

== ENCOUNTER 2018-08-15 19:48 | Emergency (ER) | payer MEDICARE, OTHER, SELFPAY ==
[2018-08-15 19:49] VITALS: BP 108/65; PULSE 69; PULSE 70; RESP 17; TEMP 36.9; O2SAT 92; O2SAT 96; BMI 26.9
[2018-08-15] MEDS: Cefazolin 1 GM/50 ML BAG IV (20:33)
[2018-08-15 20:36] LABS: Absolute Lymphocyte Count 0.98 X10^3/ul (0.83-4.51); Absolute Neutrophil Count 5.2 X10^3/uL (2.0-7.7); Basophil# 0.01 X10^3/uL; Basophil% 0.1 % (0-1); Eosinophil# 0.07 X10^3/uL; Hematocrit 41.9 % (40-54); Hemoglobin 13.5 g/dl (13.0-16.5); Lymphocyte # 0.98 X10^3/ul (4.0); Lymphocyte % 14.3 % (19-41); Mean Corp Hgb Conc 32.2 g/gl (32-36); Mean Corpuscular Hgb 31.5 pg (27.0-32.0); Mean Corpuscular Volume 97.7 fL (80-94); Mean Platelet Vol. 9.3 fl (6.2-12.0); Monocyte% 8.7 % (0-10); Neutrophil # 5.19 X10^3/uL (2.7-7.7); Neutrophil % 75.8 % (47-70); Platelet Count 178 K/mm3 (150-450); RBC Distribution Width CV 16.2 % (11.6-14.6); RBC Distribution Width SD 57.2 fl (35.1-43.9); Red Blood Count 4.29 M/mm3 (4.6-6.2); White Blood Count 6.9 K/mm3 (4.4-11.0)
[2018-08-15 20:39] LABS: POSITIVE COUNT NO; POSITIVE DIFFERENTIAL NO; POSITIVE MORPHOLOGY NO
[2018-08-15 20:49] LABS: Anion Gap 10 (5-15); BUN 57 mg/dL (7-18); BUN/Creat Ratio 21.6 RATIO (10-20); Chloride 102 mmol/L (98-107); Creatinine, Serum 2.64 mg/dL (0.70-1.30); EST Glomerular Filtration Rate 25 mL/min (>60); Est Glom Filt Rate - Afr Amer 30 mL/min (>60); Estimated Creatinine Clearance 22.98 ml/min; Glucose 135 mg/dL (74-106); Potassium 4.5 mmol/L (3.5-5.1); Sodium Level 142 mmol/L (136-145)
[2018-08-15 20:52] VITALS: BP 118/72; PULSE 69; RESP 15; TEMP 36.6; O2SAT 95
[2018-08-15 21:24] VITALS: BP 118/72; PULSE 69; RESP 15; TEMP 36.6; O2SAT 95
--- NOTE | 2018-08-15 21:24 | ED.DCSUM_ITS ---
- ER Visit Summary Date of Service: 08/15/18 Chief Complaint: Recurrent right lower extremity cellulitis History of Present Illness: The patient is a 82 M history of CAD, cardiac stents, diet-controlled diabetes, renal insufficiency and cardiomyopathy. Patient has a pacemaker defibrillator. Recently in the last 2 weeks he has had right lower extremity cellulitis. Initially placed on an antibiotic through the emergency department. Due to indigestion was causing of it was changed to Keflex by his primary care physician which resolved the cellulitis. He was on it for about 10 days. Antibiotic was recently stopped. Yesterday started developing some mild redness to his right lateral lower leg just above the ankle. He denies any fever or chills. He is never had a DVT or PE. He denies any chest pain or shortness of breath. Physical Examination: Older male no acute distress. Vital signs are stable and afebrile. Pulse ox 96% on room air no hypoxia. HEENT exam unremarkable. Neck nontender no JVD. Lungs clear to auscultation bilaterally. Heart regular rhythm no murmur. Abdomen is soft and nontender. Remedies moves all 4. Neurovascular intact. Right lower leg there is a small area of cellulitis approximately 3 inches in width and 3 to 4 inches in length rectangular. It is just above the ankle. There is no lymphangitic streaking. It is mildly warm to the touch. Is not significantly tender. He is able to do dorsi plantar flexion of his right foot. Right knee and hip are nontender. There are no cords. There is no calf tenderness. Neurologically he is awake alert. Test Results: White count 6. Previously it was 8. His hemoglobin is 13. There is no bands. Electrolytes show a BUN of 57 and a creatinine of 2.6. Previously he has had creatinines of 2 or higher. Emergency Department Course and Treatment: Patient appears to have recurrent cellulitis. Was given a gram of Ancef. On repeat exam at 2118 he is doing well. He had no fever or chills while is been here. He and family are comfortable with him being discharged home. Treatment Plan: He was treated with a gram of IV Ancef while in the emergency department. Be placed on Keflex 500 4 times daily. For 10 more days. Follow- up with his primary care physician no later than Friday. Return to the ER if the cellulitis is getting worse or he develops fever or shaking chills. Disposition: Discharge Impression: Recurrent right lower extremity cellulitis History diabetes Acute chronic renal insufficiency History of cardiomyopathy This note was generated with [employer] dictation software. It may contain incorrect words, spelling, and punctuation that were not noted in review of the chart prior to signing ED Disposition - Plan for ED Patient: Referrals: Miguel Pineda MD [Primary Care Provider] -
--- NOTE | 2018-08-15 21:28 | ED.DEP ---
ED Disposition - Plan for ED Patient: Disposition: Home or Assisted Living Instructions: Cellulitis Prescriptions: Cephalexin [Keflex] 500 mg PO Q6 #40 cap Prescription Printed Referrals: Miguel Pineda MD [Primary Care Provider] - 3-5 Days Additional Instructions: Call and follow-up with your doctor this week. 1 pill 4 times a day for 10 more days. Return to ER if you are feeling worse, develop a fever or shaking chills. Watch the area of cellulitis if it starts getting a lot worse and moving up your leg return.
== END 2018-08-15 22:36 | disposition home or self-care (01) ==
PROVIDERS: Emergency Provider Emergency Medicine; Family Provider Family Medicine; PCP Family Medicine
DX: L03.115 Cellulitis of right lower limb (principal); E11.22 Type 2 diabetes mellitus with diabetic chronic kidney disease; I12.9 Hypertensive chronic kidney disease with stage 1 through stage 4 chronic kidney disease, or unspecified chronic kidney disease; N18.9 Chronic kidney disease, unspecified; N28.9 Disorder of kidney and ureter, unspecified; I25.10 Atherosclerotic heart disease of native coronary artery without angina pectoris; I42.9 Cardiomyopathy, unspecified; Z95.5 Presence of coronary angioplasty implant and graft; Z95.810 Presence of automatic (implantable) cardiac defibrillator
CPT/HCPCS: 80048; 85025; 96374; 99282; A4216

== ENCOUNTER → 2018-09-02 10:12 | Outpatient (CLI) | payer MEDICARE, OTHER, SELFPAY ==
[2018-08-15 19:49] VITALS: BMI 26.9
[2018-09-02 12:26] LABS: Absolute Lymphocyte Count 0.88 X10^3/ul (0.83-4.51); Absolute Neutrophil Count 4.8 X10^3/uL (2.0-7.7); Eosinophil# 0.03 X10^3/uL; Eosinophils% 0.5 % (0-5); Hematocrit 40.6 % (40-54); Hemoglobin 13.1 g/dl (13.0-16.5); Lymphocyte # 0.88 X10^3/ul (4.0); Lymphocyte % 14.3 % (19-41); Mean Corp Hgb Conc 32.3 g/gl (32-36); Mean Corpuscular Hgb 31.3 pg (27.0-32.0); Mean Corpuscular Volume 96.9 fL (80-94); Mean Platelet Vol. 9.3 fl (6.2-12.0); Monocyte# 0.39 X10^3/uL; Monocyte% 6.4 % (0-10); Neutrophil # 4.83 X10^3/uL (2.7-7.7); Neutrophil % 78.6 % (47-70); Platelet Count 153 K/mm3 (150-450); RBC Distribution Width SD 56.2 fl (35.1-43.9); Red Blood Count 4.19 M/mm3 (4.6-6.2); White Blood Count 6.1 K/mm3 (4.4-11.0)
[2018-09-02 12:27] LABS: POSITIVE COUNT NO; POSITIVE DIFFERENTIAL NO; POSITIVE MORPHOLOGY NO
[2018-09-02 12:43] LABS: ALB/GLOB Ratio 0.8 RATIO (0.9-2.4); AST(SGOT) 18 U/L (15-37); Alanine Aminotransfer ALT/SGPT 25 U/L (16-61); Albumin, Serum 3.4 g/dL (3.2-5.0); Alkaline Phosphatase 66 U/L (45-117); Anion Gap 10 (5-15); BUN 48 mg/dL (7-18); Calcium,Total 9.2 mg/dL (8.5-10.1); Chloride 105 mmol/L (98-107); Creatinine, Serum 2.09 mg/dL (0.70-1.30); EST Glomerular Filtration Rate 32 mL/min (>60); Est Glom Filt Rate - Afr Amer 39 mL/min (>60); Globulin 4.2 g/dL (2.2-4.2); Glucose 97 mg/dL (74-106); Potassium 4.3 mmol/L (3.5-5.1); Protein, Total 7.6 g/dL (6.4-8.2); Sodium Level 142 mmol/L (136-145)
== END ==
PROVIDERS: Family Provider Family Medicine; PCP Family Medicine; Referring Provider Internal Medicine Rheumatology; Visit Provider Internal Medicine Rheumatology
DX: M06.4 Inflammatory polyarthropathy (principal); E11.22 Type 2 diabetes mellitus with diabetic chronic kidney disease; N18.9 Chronic kidney disease, unspecified; M1A.9XX1 Chronic gout, unspecified, with tophus (tophi); M17.0 Bilateral primary osteoarthritis of knee; M21.40 Flat foot [pes planus] (acquired), unspecified foot; I25.10 Atherosclerotic heart disease of native coronary artery without angina pectoris; I42.9 Cardiomyopathy, unspecified; N40.1 Benign prostatic hyperplasia with lower urinary tract symptoms; Z79.899 Other long term (current) drug therapy; Z95.810 Presence of automatic (implantable) cardiac defibrillator
CPT/HCPCS: 36415; 80053; 85025

== ENCOUNTER 2018-11-06 03:29 | Observation (INO) | payer MEDICARE, OTHER, SELFPAY ==
[2018-11-06] VITALS (10 sets, daily range): BP systolic 106–116; BP diastolic 68–77; PULSE 64–70; RESP 13–19; TEMP 36.4; O2SAT 90–100; BMI 27.7; BMI 27.2; BMI 27.3
--- NOTE | 2018-11-06 03:42 | RAD_ITS ---
STUDY: X-RAY CHEST REASON FOR EXAM: Male, 83 years old. Chest pain TECHNIQUE: Single AP portable view of the chest. COMPARISON: 08/04/2017. 05/28/2017. FINDINGS: There are superimposed monitor leads. There is an anterior chest wall single chamber permanent pacemaker. Chronic interstitial lung disease, pulmonary fibrosis in the bases without change. Mild pleural thickening right costophrenic angle. There is no demonstrated pleural abnormality. There is mild cardiac enlargement. Normal mediastinum and [place]. Normal visualized pulmonary arteries. There is atherosclerotic calcification of the aortic arch with tortuosity. There is demineralization of the osseous structures. There is degenerative osteoarthritis of the bilateral shoulders. There is no demonstrated abnormality of the visualized soft tissue structures of the upper abdomen. RAD/Chest 1 View (Portable) IMPRESSION: Stable cardiac enlargement, chronic interstitial lung disease, minimal pleural thickening in the right base suspected. No pulmonary edema, congestive heart failure or confluent pneumonia. Electronically Signed: Jina Gonzalez MD at 4:20 EDT , Service support ,
--- NOTE | 2018-11-06 03:42 | EKG12_ITS ---
Test Reason : CP Blood Pressure : / mmHG Vent. Rate : 066 BPM Atrial Rate : 066 BPM P-R Int : 214 ms QRS Dur : 134 ms QT Int : 492 ms P-R-T Axes : 026 -27 129 degrees QTc Int : 515 ms Sinus rhythm with 1st degree A-V block Left ventricular hypertrophy with QRS widening and repolarization abnormality Abnormal ECG Confirmed by ADELA GALLARDO, CINDI ([id number]), desk editor VIRGILIO EVANS ([id number]) on 11/09/2018 3:40:55 PM Referred By: CONSTANZA Confirmed By:BENNIE CHAPMAN MD
--- NOTE | 2018-11-06 03:43 | ED.VIS.GEN ---
History of Present Illness Chief Complaint: Chest Pain Narrative: Patient is an 83-year-old male who presents with chest pain. He woke up with sharp substernal chest pain. This lasted about 6 minutes. He got up and took 2 sublingual nitroglycerin with resolution of his pain. He denies associated shortness of breath or nausea but he did feel dizzy. He does have a history of coronary disease, prior stents. He has a pacemaker. He denies recent illness otherwise such as fevers cough vomiting diarrhea. Past Medical History - Allergies and Home Meds Allergies/Adverse Reactions: Allergies atorvastatin [From Lipitor] Adverse Reaction (Verified 08/15/18 19:49) myalgia leflunomide [From Arava] Adverse Reaction (Verified 08/15/18 19:49) PROBLEMS WITH MY FEET simvastatin [From Zocor] Adverse Reaction (Verified 08/15/18 19:49) myalgia Primary Care Physician: Miguel Pineda MD [Primary Care Provider] - Past Medical History: - - Coronary artery disease, diet-controlled diabetes, hypertension, hyperlipidemia Surgical History: angioplasty, appendectomy Smoking Status: Former smoker - Family History Paternal Family History: Family History (Last Reviewed 06/16/18 @ 08:46 by Polina Castro) Mother Alzheimers disease Brother Cancer Brother Hypertension Brother CAD (coronary artery disease) Sister CAD (coronary artery disease) Sister Breast cancer Family History: Reports: Pulmonary Disease - emphysema, s/p lobectomy Maternal Family History: Family History (Last Reviewed 06/16/18 @ 08:46 by Polina Castro) Mother Alzheimers disease Brother Cancer Brother Hypertension Brother CAD (coronary artery disease) Sister CAD (coronary artery disease) Sister Breast cancer Family History: Reports: Dementia, Heart Disease Sibling Family History: Family History (Last Reviewed 06/16/18 @ 08:46 by Polina Castro) Mother Alzheimers disease Brother Cancer Brother Hypertension Brother CAD (coronary artery disease) Sister CAD (coronary artery disease) Sister Breast cancer Family History: Reports: Heart Disease Offspring Family History: Family History (Last Reviewed 06/16/18 @ 08:46 by Polina Castro) Mother Alzheimers disease Brother Cancer Brother Hypertension Brother CAD (coronary artery disease) Sister CAD (coronary artery disease) Sister Breast cancer Family History: Reports: No pertinent history Review of Systems All systems negative except as indicated General: Denies: Fever Cardiovascular: Reports: Chest pain Respiratory: Denies: Dyspnea, Cough Gastrointestinal: Denies: Nausea, Vomiting Neurological: Reports: - - Dizziness Physical Exam Vital Signs/Narrative: Vital Signs Temp Pulse Resp BP Pulse Ox 11/06/18 03:30 97.6 F L 66 19 H 114/77 100 Inital Vital Signs reviewed: Yes General: Well nourished, Well developed Head: Normocephalic Eyes: EOMI ENT: Moist mucous membranes Neck: Supple Cardiovascular: Regular rate, Regular rhythm Respiratory: No distress, CTA bilaterally Abdomen: Soft, Nontender Extremities: Nontender, - - Ecchymosis of bilateral arms which patient has been chronic Skin: Normal color Neurological: Alert Psychological: Normal affect Diagnostic/Tx/Re-eval Impressions Chest X-Ray 11/06/18 03:42 IMPRESSION: Stable cardiac enlargement, chronic interstitial lung disease, minimal pleural thickening in the right base suspected. No pulmonary edema, congestive heart failure or confluent pneumonia. Electronically Signed: Jina Gonzalez MD at 4:20 EDT , Service support , 11/06/18 03:42 Chest 1 View (Portable) [RAD] Stat Laboratory Results 11/06/18 11/06/18 03:30 03:30 WBC 6.0 RBC 4.26 L Hgb 13.5 Hct 42.6 MCV 100.0 H MCH 31.7 MCHC 31.7 L RDW Std Deviation 58.2 H RDW Coeff of [place] 15.8 H Plt Count 142 L MPV 10.4 Immature Gran % (Auto) 0.300 Neut % (Auto) 69.4 Lymph % (Auto) 15.7 L [place] % (Auto) 11.2 H Eos % (Auto) 2.7 Baso % (Auto) 0.7 Absolute Neuts (auto) 4.2 Absolute Lymphs (auto) 0.94 Nucleated RBC % 0 Sodium 143 Potassium 5.2 H Chloride 108 H Carbon Dioxide 29.0 Anion Gap 6 BUN 43 H Creatinine 2.45 H Estim Creat Clear Calc 24.33 Est GFR (MDRD) Af Amer 33 L Est GFR (MDRD) Non-Af 27 L BUN/Creatinine Ratio 17.6 Glucose 116 H Calcium 8.9 Troponin I < 0.015 - Medical Decision Making EKG shows sinus rhythm with a first-degree AV block, LVH, ST depression and T wave inversions in V4 through V6, T wave inversions in leads I and aVL. This is similar to prior EKG. Patient was given aspirin. He was advised to let us know if he had any recurrent chest pain. Labs as above essentially unremarkable. He does have mild thrombocytopenia as well as chronic kidney disease creatinine appears to be near baseline. His chest x-ray shows no acute process on my review. Patient was discussed with the hospitalist who agrees to admit. ED Disposition - Plan for ED Patient: Disposition: Acute Care Hospital [facility] Diagnosis: Chest pain Referrals: Miguel Pineda MD [Primary Care Provider] -
[2018-11-06] MEDS: Aspirin 81 MG TAB.CHEW 324 MG PO (03:59)
[2018-11-06 04:03] LABS: Anion Gap 6 (5-15); BUN 43 mg/dL (7-18); BUN/Creat Ratio 17.6 RATIO (10-20); Calcium,Total 8.9 mg/dL (8.5-10.1); Chloride 108 mmol/L (98-107); Creatinine, Serum 2.45 mg/dL (0.70-1.30); EST Glomerular Filtration Rate 27 mL/min (>60); Est Glom Filt Rate - Afr Amer 33 mL/min (>60); Estimated Creatinine Clearance 24.33 ml/min; Glucose 116 mg/dL (74-106); Potassium 5.2 mmol/L (3.5-5.1); Sodium Level 143 mmol/L (136-145)
[2018-11-06 04:04] LABS: Absolute Lymphocyte Count 0.94 X10^3/uL (0.83-4.51); Absolute Neutrophil Count 4.2 X10^3/uL (2.0-7.7); Basophil# 0.04 X10^3/uL; Basophil% 0.7 % (0-1); Eosinophil# 0.16 X10^3/uL; Eosinophils% 2.7 % (0-5); Hematocrit 42.6 % (40-54); Hemoglobin 13.5 g/dL (13.0-16.5); Lymphocyte # 0.94 X10^3/ul (4.0); Lymphocyte % 15.7 % (19-41); Mean Corp Hgb Conc 31.7 g/dL (32-36); Mean Corpuscular Hgb 31.7 pg (27.0-32.0); Mean Platelet Vol. 10.4 fl (6.2-12.0); Monocyte# 0.67 X10^3/uL; Monocyte% 11.2 % (0-10); NRBC Flagged by Analyzer 0 % (0-5); Neutrophil # 4.15 X10^3/uL (2.7-7.7); Neutrophil % 69.4 % (47-70); Platelet Count 142 K/mm3 (150-450); RBC Distribution Width CV 15.8 % (11.6-14.6); RBC Distribution Width SD 58.2 fl (35.1-43.9); Red Blood Count 4.26 M/mm3 (4.6-6.2)
--- NOTE | 2018-11-06 04:16 | HP.PCM_ITS ---
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 Qualifiers: Peripheral atherosclerosis location: unspecified extremity Qualified Code(s): I70.219 - Atherosclerosis of [place] arteries of extremities with intermittent claudication, unspecified extremity (10) Chronic renal failure, stage 3 (moderate) Status: Chronic (11) Diabetes mellitus type 2 in nonobese Status: Chronic (12) Sustained ventricular tachycardia Status: Chronic (13) Hypothyroidism Status: Chronic Qualifiers: Hypothyroidism type: unspecified Qualified Code(s): E03.9 - Hypothyroidism, unspecified (14) Cardiomyopathy Status: Chronic Qualifiers: Cardiomyopathy type: unspecified Qualified Code(s): I42.9 - Cardiomyopathy, unspecified History of Present Illness Date of Admission: 11/06/18 Chief Complaint: Chest pain The patient is a 83 y/o M w/ PMHx: CKD stage III/IV, HTN, HLD, Hypothyroidism, Dilated Cardiomyopathy, PVT/SVT s/p AICD, CAD s/p PCI LAD, diagonal 2006, Diabetes mellitus type II (Diet controlled) who presents to the [facility] ED on 11/06/18 with history of onset midsternal chest discomfort upon awakening early in the morning described as a sharp stabbing pain, 8 out of 10 in severity with associated dyspnea but no nausea, emesis or diaphoresis with self administration of sublingual nitroglycerin tablet x2 with complete resolution of chest discom fort following this with reported history of ongoing 1 to 2-week history of intermittent similar chest discomfort specifically at night, not necessarily waking him up but noted upon awakening. Work-up in ED included T 97.6, heart rate 66, BP 114/77, respiratory rate 19, #on room air, CBC with WBC 6, heme globin 13.5, platelet 142 with no evidence left shift, BMP with potassium 5.2, chloride 108, BUN/creatinine 43/2.45, glucose 116, troponin less than 0.015, EKG with sinus rhythm no acute evidence of ischemia, chest x-ray with evidence of chronic interstitial lung disease with minimal pleural thickening in the right base. In the ED patient ministered aspirin therapy. Past Medical History Past Medical History (Chronic Problems): Chronic Problems (Last Updated 11/04/18 @ 11:18 by Migdalia Fisher) Mixed hyperlipidemia (Chronic) Presence of stent in coronary artery (Chronic ~09/23/06) PTCA and stenting of the LAD and diagonal 09/23/2006 Atherosclerotic heart disease of [place] coronary artery without angina pectoris (Chronic) Essential hypertension (Chronic) Mixed sleep apnea (Chronic) BiPAP 17/11 mm of water with a backup rate of 12 Hypersomnolence disorder (Chronic) Dilated cardiomyopathy (Chronic) Paroxysmal ventricular tachycardia (Chronic) Syncope and collapse (Chronic) Abnormal result of cardiovascular function study, unspecified (Chronic) 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) Implant: 06/2000; Generator change: 03/17/2008 Hypothyroidism, iatrogenic (Chronic) Atherosclerosis of [place] arteries of extremity with intermittent claudication (Chronic) Dyspnea (Chronic) Chronic renal failure, stage 3 (moderate) (Chronic) Diabetes mellitus type 2 in nonobese (Chronic) Sustained ventricular tachycardia (Chronic) Hypothyroidism (Chronic) Cardiomyopathy (Chronic) Medical History: Medical History (Last Updated 11/04/18 @ 11:18 by Migdalia Fisher) Mixed hyperlipidemia (Chronic) E78.2 Presence of stent in coronary artery (Chronic) Onset Date: ~09/23/06 Z95.5 PTCA and stenting of the LAD and diagonal 09/23/2006 Atherosclerotic heart disease of [place] coronary artery without angina pectoris (Chronic) I25.10 Essential hypertension (Chronic) I10 Dilated cardiomyopathy (Chronic) I42.0 Paroxysmal ventricular tachycardia (Chronic) I47.2 Syncope and collapse (Chronic) R55 Abnormal result of cardiovascular function study, unspecified (Chronic) R94.30 Hypothyroidism, iatrogenic (Chronic) E03.2 Atherosclerosis of [place] arteries of extremity with intermittent claudication (Chronic) I70.219 Dyspnea (Chronic) R06.00 Chest pain (Chronic) R07.9 Chronic renal failure, stage 3 (moderate) (Chronic) N18.3 Diabetes mellitus type 2 in nonobese (Chronic) E11.9 Sustained ventricular tachycardia (Chronic) I47.2 Hypothyroidism (Chronic) E03.9 Cardiomyopathy (Chronic) I42.9 Fatigue (Resolved) R53.83 Myalgia (Resolved) M79.1 Allergies atorvastatin [From Lipitor] Adverse Reaction (Verified 08/15/18 19:49) myalgia leflunomide [From Arava] Adverse Reaction (Verified 08/15/18 19:49) PROBLEMS WITH MY FEET simvastatin [From Zocor] Adverse Reaction (Verified 08/15/18 19:49) myalgia Home Medications: Ambulatory Orders Medication Instructions Recorded Aspirin 325 mg PO DAILY@0800 05/22/16 Colchicine 0.6 mg PO DAILY 05/22/16 Finasteride [Proscar] 5 mg PO DAILY 05/22/16 Levothyroxine [Synthroid] 50 mcg PO DAILY 05/22/16 Nitroglycerin [Nitrostat] 0.4 mg SL PRN PRN 05/22/16 Tamsulosin HCl [Flomax] 0.4 mg PO DAILY 05/22/16 fexofenadine 180 mg tablet 180 mg PO QDAY 03/03/17 prednisone 10 mg tablet 5 mg PO DAILY tab 09/23/17 hydroxychloroquine 200 mg tablet 200 mg PO DAILY tab 11/10/17 tramadol 50 mg tablet 50 mg PO QHS PRN tab 11/10/17 pravastatin 20 mg tablet 20 mg PO QODAY #45 tab 11/24/17 amiodarone 200 mg tablet 200 mg PO DAILY #90 tab 12/30/17 carvedilol 6.25 mg tablet 6.25 mg PO BID #180 tab 01/05/18 albuterol sulfate 2.5 mg/3 mL 2.5 mg INHALATION Q4H PRN 03/26/18 (0.083 %) solution for nebulization furosemide 40 mg tablet 40 mg PO QDAY #90 tab 03/26/18 meclizine 25 mg chewable tablet 25 mg PO TID PRN tab 03/26/18 clopidogrel 75 mg tablet 75 mg PO DAILY #90 tab 07/21/18 Surgical History: Surgical History (Last Updated 11/04/18 @ 11:18 by Migdalia Fisher) 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) Z95.810 Implant: 06/2000; Generator change: 03/17/2008 Presence of coronary angioplasty implant and graft Onset Date: ~09/23/06 Z95.5 PTCA and stenting of the LAD and diagonal 09/23/2006 History of appendectomy Z98.890, Z90.49 Surgical History: angioplasty, appendectomy, - - AICD, appendectomy, PCI. Psychiatric History: No pertinent psych hx Lives: Spouse/ Significant Other Smoking Status: Former smoker - Patient quit cigarette tobacco usage greater than 30 years prior. Tobacco Use: Non-smoker Alcohol: None Drugs: None - *Family History Paternal Family History: Family History (Last Reviewed 06/16/18 @ 08:46 by Polina Castro) Mother Alzheimers disease Brother Cancer Brother Hypertension Brother CAD (coronary artery disease) Sister CAD (coronary artery disease) Sister Breast cancer History Items: Pulmonary Disease - emphysema, s/p lobectomy with history of concurrent tobacco use. Maternal Family History: Family History (Last Reviewed 06/16/18 @ 08:46 by Polina Castro) Mother Alzheimers disease Brother Cancer Brother Hypertension Brother CAD (coronary artery disease) Sister CAD (coronary artery disease) Sister Breast cancer History Items: Dementia, Heart Disease Sibling Family History: Family History (Last Reviewed 06/16/18 @ 08:46 by Polina Castro) Mother Alzheimers disease Brother Cancer Brother Hypertension Brother CAD (coronary artery disease) Sister CAD (coronary artery disease) Sister Breast cancer History Items: Heart Disease Offspring Family History: Family History (Last Reviewed 06/16/18 @ 08:46 by Polina Castro) Mother Alzheimers disease Brother Cancer Brother Hypertension Brother CAD (coronary artery disease) Sister CAD (coronary artery disease) Sister Breast cancer History Items: No pertinent history Review of Systems Constitutional: Reports: Weakness, Fatigue. Denies: Chills, Fever, Malaise, Weight Change HEENT: Denies: Head Aches, Sinus Congestion, Sinus Drainage Cardiovascular: Reports: Chest Pain. Denies: Chest Pressure, Chest Tightness, Heaviness, Light Headedness, Orthopnea, Palpitations, Syncope Respiratory: Denies: Cough, Shortness of breath at rest, Sputum production Gastrointestinal: Denies: Abdominal Pain, Nausea, Vomiting Genitourinary: Denies: Dysuria Musculoskeletal: Reports: Back Pain, Joint Pain. Denies: Joint Tenderness Skin: Denies: Rash, Wounds Neurological: Denies: Numbness, Tingling, Focal weakness Psychiatric: Denies: Anxiety, Depression, Homicidal Ideations, Suicidal Ideations Hematologic/ Lymphatic: Reports: Easy Bruising, Easy Bleeding VTE Information - Inpt Only VTE Present on Admission: No VTE Mechan Device Prophylaxis: SCD's VTE Pharm Prophylaxis ordered?: Yes Subjective: Seated upright in the ED bed, fatigued appearance, no acute distress, no current chest discomfort. Objective: Physical Examination: General: awake, alert, oriented x 3 and cooperative, seated upright in the ED bed in no apparent distress. Skin: normal color, turgor, no icterus, cyanosis except notable staged ecchymoses to bilateral upper extremities. HEENT: AT/NC, EOMI, PERRLA, mildly dry MM, no carotid bruits or JVD noted. Lungs: CTA bilaterally, moderate effort, heart decrease BL bases, mild crackles bilateral base, no rales, ronchi or wheezing. Heart: Regular rate and rhythm; no gallop, rub audible. Abdomen: soft, NTTP, ND, normal BS, no HSM. Extremities: no cyanosis, clubbing, bilateral ankle minimally pitting edema, joint distortion noted especially left wrist. Neurological: patient awake, alert, oriented x 3; cognitive function intact; pupils equally reactive to light and accomodation; cranial nerves II-XII grossly normal, moving all 4 extremities, no focal deficits, strength moderately global decrease secondary to acute presentation. Psychiatric: affect appears fatigued, no acute evidence of depressive or anxiety feelings. - Physical Exam Vital Signs Temp Pulse Resp BP Pulse Ox 97.6 F L 64 13 116/76 100 11/06/18 03:30 11/06/18 03:30 11/06/18 03:30 11/06/18 03:30 11/06/18 03:30 Oxygen Flow Rate (L/min) 2 Oxygen Delivery Method Nasal Cannula Weight: 198 lb 10.184 oz Body Mass Index (BMI) 27.7 Laboratory Tests Past 24 Hrs 11/06/18 11/06/18 03:30 03:30 WBC 6.0 RBC 4.26 L Hgb 13.5 Hct 42.6 MCV 100.0 H MCH 31.7 MCHC 31.7 L RDW Std Deviation 58.2 H RDW Coeff of [place] 15.8 H Plt Count 142 L MPV 10.4 Immature Gran % (Auto) 0.300 Neut % (Auto) 69.4 Lymph % (Auto) 15.7 L [place] % (Auto) 11.2 H Eos % (Auto) 2.7 Baso % (Auto) 0.7 Absolute Neuts (auto) 4.2 Absolute Lymphs (auto) 0.94 Nucleated RBC % 0 Sodium 143 Potassium 5.2 H Chloride 108 H Carbon Dioxide 29.0 Anion Gap 6 BUN 43 H Creatinine 2.45 H Estim Creat Clear Calc 24.33 Est GFR (MDRD) Af Amer 33 L Est GFR (MDRD) Non-Af 27 L BUN/Creatinine Ratio 17.6 Glucose 116 H Calcium 8.9 Troponin I < 0.015 Assessment/Plan All Active Problems (Last Updated 11/04/18 @ 11:18 by Migdalia Fisher) Chest pain (Acute) Fatigue (Resolved) Myalgia (Resolved) The patient is a 83 y/o M w/ PMHx: CKD stage III/IV, HTN, HLD, Hypothyroidism, Dilated Cardiomyopathy, PVT/SVT s/p AICD, CAD s/p PCI LAD, diagonal 2006, Diabetes mellitus type II (Diet controlled) who presents to the [facility] ED on 11/06/18 with history of onset midsternal chest discomfort upon awakening early in the morning described as a sharp stabbing pain, 8 out of 10 in severity with associated dyspnea but no nausea, emesis or diaphoresis. 1. Chest Pain: Work-up in ED included T 97.6, heart rate 66, BP 114/77, respiratory rate 19, #on room air, CBC with WBC 6, heme globin 13.5, platelet 142 with no evidence left shift, BMP with potassium 5.2, chloride 108, BUN/creatinine 43/2.45, glucose 116, troponin less than 0.015, EKG with sinus rhythm no acute evidence of ischemia, chest x-ray with evidence of chronic interstitial lung disease with minimal pleural thickening in the right base. Will admit to PCU, place on a monitored bed to assure no acute myocardial infarction with serial cardiac enzymes and EKGs. Patient is unable to perform exercise thus will proceed with AM nuclear stress testing. ASA, NG, morphine. FLP pending. Mag in AM. 2. CAD: Status post PCI as noted, maintained on aspirin, Plavix, Coreg regimen. 3. Dilated cardiomyopathy: Continue home aspirin, Plavix, statin, Coreg regimen. 4. PVT/SVT history: Status post AICD, maintained on amiodarone and Coreg regimen 5. Given chronic Kidney Disease Stage III/IV: Admission BUN/Cr 43/2.45, baseline renal function 2.0-2.2 appears more recent baseline but varies, repeat BMP in AM. 6. Hyperkalemia, mild: Admission potassium 5.2, gently hydrating given n.p.o. status with pending cardiac stress testing, repeat BMP in a.m. if remains. 7. Diabetes mellitus type II: Not on regimen, diet controlled, n.p.o. status currently but once appropriate ADA diet, accu checks w/ ISS. 8. Hypertension: Continue home regimen including Coreg, Lasix, PRN hydralazine. 9. Hyperlipidemia: Continue home statin regimen. AM FLP. 10. Inflammatory arthritis: We will continue patient home Plaquenil, low-dose steroid regimen. 11. Hypothyroidism: Continue home synthroid regimen. 12. BPH: Continue home Proscar and Flomax regimen. 13. KENAN: Mixed, noted documentation of BiPAP, will continue. 14. DVT Prophylaxis: SCDS, heparin. 15. CODE status: Patient and daughter are his healthcare power of a ttorney's, living will in place. Discussed CODE status at length including difference between FULL code, DNR-CCA and DNR-CC status. Following discussions about the differences in these status, requested full code status. Advanced Care Planning Face to Face Time: 16 minutes. Code Visit OBSV E&M: 69800 Initial observation care L3 Procedures: 61152 Advncd Care Plan 30 Min
--- NOTE | 2018-11-06 05:02 | EKG12_ITS ---
Test Reason : CP ADMIT Blood Pressure : / mmHG Vent. Rate : 065 BPM Atrial Rate : 065 BPM P-R Int : 224 ms QRS Dur : 132 ms QT Int : 500 ms P-R-T Axes : 026 -26 138 degrees QTc Int : 520 ms Sinus rhythm with 1st degree A-V block Left ventricular hypertrophy with QRS widening and repolarization abnormality Abnormal ECG When compared with ECG of 06-NOV-2018 03:33, MANUAL COMPARISON REQUIRED, DATA IS UNCONFIRMED Confirmed by ADELA GALLARDO, CINDI ([id number]), development editor VIRGILIO EVANS ([id number]) on 11/09/2018 4:11:05 PM Referred By: DR STALLWORTH Confirmed By:BENNIE CHAPMAN MD
[2018-11-06 05:13] LABS: International Normalized Ratio 1.2; Prothrombin Time (Protime)PT. 14.9 SECONDS (11.7-14.9)
[2018-11-06 05:14] LABS: Partial Thromboplast Time 30.7 Seconds (24.1-36.2)
[2018-11-06 05:54] LABS: Cholesterol 124 mg/dL (200); High Density Lipoprotein 36 mg/dL; Magnesium 2.3 mg/dL (1.6-2.6); Triglycerides 155 mg/dL; Very Low Density Lipoprotein 31 mg/dL (5-40)
[2018-11-06] MEDS: Levothyroxine 50 MCG Tablet PO (05:56)
[2018-11-06] MEDS: Clopidogrel Bisulfate 75 MG Tablet PO (05:56)
[2018-11-06] MEDS: 0.9% Normal Saline 1,000 ML 100 ML IV (06:41)
[2018-11-06] MEDS: 0.9% NaCl Peripheral Flush Adult/Peds IV ×2 (06:42→10:38)
[2018-11-06 07:10] LABS: Bedside Glucose 124 mg/dL (70-110)
--- NOTE | 2018-11-06 10:37 | CASEMGMT ---
POA/LW not on chart. SW let pt and daughter in room know that the POA/LW forms not on file here, asked pt to bring in the forms as able. Pt states understanding. DIAZ Salcedo
[2018-11-06] MEDS: Loratadine 10 MG Tablet PO (10:51)
[2018-11-06] MEDS: Tamsulosin HCl 0.4 MG Capsule PO (10:51)
[2018-11-06] MEDS: Carvedilol 6.25 MG Tablet PO (10:51)
[2018-11-06] MEDS: Hydroxychloroquine 200 MG Tablet PO (10:51)
[2018-11-06] MEDS: Amiodarone 200 MG Tablet PO (10:51)
[2018-11-06] MEDS: predniSONE 5 MG Tablet PO (10:51)
[2018-11-06] MEDS: Furosemide 40 MG Tablet PO (10:51)
[2018-11-06] MEDS: Finasteride 5 MG Tablet PO (10:51)
--- NOTE | 2018-11-06 10:51 | STRESSREP ---
Stress Test Report Date: November 06, 2018 Procedure: Pharmacologic stress nuclear imaging study Indications: Chest pain Consent: Per the patient Procedure: The patient underwent pharmacologic (Regadenoson) evaluation with a peak heart rate of 85 beats per minute (62 %predicted maximal heart rate) and a peak blood pressure of 116/70 mmHg. The baseline ECG demonstrated normal sinus rhythm, nonspecific intraventricular conduction delay, possible prior anterior NV, nonspecific ST-T changes. EKG during lexiscan infusion revealed no significant change from baseline. EKG post infusion revealed no significant change from baseline [There were no cardiac dysrhythmias pretest, during pharmacologic infusion, or recovery]. [There was no complaint of chest discomfort during pharmacologic infusion or recovery]. The examination was discontinued secondary to completion of protocol. Impression: 1. Lexiscan stress test test is negative for Lexiscan infusion induced EKG changes of ischemia. 2. Lexiscan stress test test is negative for Lexiscan infusion induced chest pain. 3. Results of the nuclear portion of the test is as below Myocardial perfusion imaging study: Technique: The patient was injected with 12 millicuries of technetium 99m Cardiolite and subsequently rest SPECT Cardiolite nuclear imaging was obtained in the horizontal long, vertical long, and short axis views. The patient underwent pharmacologic (Regadenoson) evaluation. Please see above for details. The patient was injected with 31.2 millicuries of technetium 99m Cardiolite and subsequently stress SPECT Cardiolite nuclear imaging was obtained in the horizontal long, vertical long, and short axis views. A gated Cardiolite study at peak stress was obtained. Interpretation: Rest and stress SPECT Cardiolite nuclear imaging status post realignment, normalization, and attenuation correction demonstrate moderately decreased radioisotope uptake in the apex on both the rest and stress images. This is suggestive of prior apical myocardial infarction. Prior to attenuation correction there is also decreased radioisotope uptake in the inferior wall that gets better with attenuation correction suggestive of diaphragmatic attenuation artifact. There is no evidence of significant ischemia. Gated images reveal severe global hypokinesis. The reported LVEF is 18 %. Impression: 1. There is no evidence of significant ischemia. 2. Estimated ejection fraction is 18%. This note was generated with [employer] software. It may contain incorrect words, spelling, and punctuation that were not noted in checking the note before signing.
[2018-11-06 11:55] LABS: Bedside Glucose 120 mg/dL (70-110)
[2018-11-06 14:50] LABS: Anion Gap 3 (5-15); BUN 39 mg/dL (7-18); BUN/Creat Ratio 17.6 RATIO (10-20); Calcium,Total 8.7 mg/dL (8.5-10.1); Chloride 108 mmol/L (98-107); Creatinine, Serum 2.21 mg/dL (0.70-1.30); EST Glomerular Filtration Rate 30 mL/min (>60); Est Glom Filt Rate - Afr Amer 37 mL/min (>60); Estimated Creatinine Clearance 26.97 ml/min; Glucose 121 mg/dL (74-106); Potassium 4.1 mmol/L (3.5-5.1); Sodium Level 140 mmol/L (136-145)
--- NOTE | 2018-11-06 15:07 | CON.PCM_ITS ---
Problem List (1) Chest pain Status: Acute Reason for Consult Date of Consultation: 11/06/18 Reason for Consultation: chest pain, YUSUF History of Present Illness: The patient is a 83 y/o M w/ PMHx: CKD stage III/IV, HTN, HLD, Hypothyroidism, Dilated Cardiomyopathy, PVT/SVT s/p AICD, CAD s/p PCI LAD, diagonal 2006, Diabetes mellitus type II (Diet controlled) who presents to the [facility] ED on 11/06/18 with history of onset midsternal chest discomfort upon awakening early in the morning described as a sharp stabbing pain, 8 out of 10 in severity with associated dyspnea but no nausea, emesis or diaphoresis with self administration of sublingual nitroglycerin tablet x2 with complete resolution of chest discomfort following this with reported history of ongoing 1 to 2-week history of intermittent similar chest discomfort specifically at night, not necessarily waking him up but noted upon awakening. Work-up in ED included T 97.6, heart rate 66, BP 114/77, respiratory rate 19, #on room air, CBC with WBC 6, heme globin 13.5, platelet 142 with no evidence left shift, BMP with potassium 5.2, chloride 108, BUN/creatinine 43/2.45, glucose 116, troponin less than 0.015, EKG with sinus rhythm no acute evidence of ischemia, chest x-ray with evidence of chronic interstitial lung disease with minimal pleural thickening in the right base. Patient was admitted to the PCU and FL was ruled out. He had a stress test which revealed no evidence of ischemia but an ejection fraction of 18%. Patient states that when he walks about 100 yards he gets short of breath and tired. He does not have any chest pain at that time. The chest pain was n onexertional. Review of systems: All systems reviewed. All else is negative except that in the HPI. Past Medical History Allergies/Adverse Reactions: Allergies atorvastatin [From Lipitor] Adverse Reaction (Verified 08/15/18 19:49) myalgia leflunomide [From Arava] Adverse Reaction (Verified 08/15/18 19:49) PROBLEMS WITH MY FEET simvastatin [From Zocor] Adverse Reaction (Verified 08/15/18 19:49) myalgia Home Medications: Ambulatory Orders Medication Instructions Recorded Aspirin 325 mg PO DAILY@0800 05/22/16 Colchicine 0.6 mg PO DAILY 05/22/16 Finasteride [Proscar] 5 mg PO DAILY 05/22/16 Levothyroxine [Synthroid] 50 mcg PO DAILY 05/22/16 Nitroglycerin [Nitrostat] 0.4 mg SL PRN PRN 05/22/16 Tamsulosin HCl [Flomax] 0.4 mg PO DAILY 05/22/16 fexofenadine 180 mg tablet 180 mg PO QDAY 03/03/17 prednisone 10 mg tablet 5 mg PO DAILY tab 09/23/17 hydroxychloroquine 200 mg tablet 200 mg PO DAILY tab 11/10/17 tramadol 50 mg tablet 50 mg PO QHS PRN tab 11/10/17 pravastatin 20 mg tablet 20 mg PO QODAY #45 tab 11/24/17 amiodarone 200 mg tablet 200 mg PO DAILY #90 tab 12/30/17 carvedilol 6.25 mg tablet 6.25 mg PO BID #180 tab 01/05/18 albuterol sulfate 2.5 mg/3 mL 2.5 mg INHALATION Q4H PRN 03/26/18 (0.083 %) solution for nebulization furosemide 40 mg tablet 40 mg PO QDAY #90 tab 03/26/18 meclizine 25 mg chewable tablet 25 mg PO TID PRN tab 03/26/18 clopidogrel 75 mg tablet 75 mg PO DAILY #90 tab 07/21/18 Past Medical History (Chronic Problems): Chronic Problems (Last Updated 11/04/18 @ 11:18 by Migdalia Fisher) Mixed hyperlipidemia (Chronic) Presence of stent in coronary artery (Chronic ~09/23/06) PTCA and stenting of the LAD and diagonal 09/23/2006 Atherosclerotic heart disease of [place] coronary artery without angina pectoris (Chronic) Essential hypertension (Chronic) Mixed sleep apnea (Chronic) BiPAP 17/11 mm of water with a backup rate of 12 Hypersomnolence disorder (Chronic) Dilated cardiomyopathy (Chronic) Paroxysmal ventricular tachycardia (Chronic) Syncope and collapse (Chronic) Abnormal result of cardiovascular function study, unspecified (Chronic) 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) Implant: 06/2000; Generator change: 03/17/2008 Hypothyroidism, iatrogenic (Chronic) 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 Psychiatric History: No pertinent psych hx - *Family History Paternal Family History: Family History (Last Reviewed 06/16/18 @ 08:46 by Polina Castro) Mother Alzheimers disease Brother Cancer Brother Hypertension Brother CAD (coronary artery disease) Sister CAD (coronary artery disease) Sister Breast cancer History Items: Pulmonary Disease - emphysema, s/p lobectomy Maternal Family History: Family History (Last Reviewed 06/16/18 @ 08:46 by Polina Castro) Mother Alzheimers disease Brother Cancer Brother Hypertension Brother CAD (coronary artery disease) Sister CAD (coronary artery disease) Sister Breast cancer History Items: Dementia, Heart Disease Sibling Family History: Family History (Last Reviewed 06/16/18 @ 08:46 by Polina Castro) Mother Alzheimers disease Brother Cancer Brother Hypertension Brother CAD (coronary artery disease) Sister CAD (coronary artery disease) Sister Breast cancer History Items: Heart Disease Offspring Family History: Family History (Last Reviewed 06/16/18 @ 08:46 by Polina Castro) Mother Alzheimers disease Brother Cancer Brother Hypertension Brother CAD (coronary artery disease) Sister CAD (coronary artery disease) Sister Breast cancer History Items: No pertinent history Lives: Spouse/ Significant Other Smoking Status: Former smoker Tobacco Use: Non-smoker Alcohol: None Drugs: None Objective: Vital Signs Temp Pulse Resp BP Pulse Ox 97.5 F L 70 16 114/77 96 11/06/18 14:09 11/06/18 14:09 11/06/18 14:09 11/06/18 14:09 11/06/18 14:09 Oxygen Flow Rate (L/min) 2 Oxygen Delivery Method Room Air Weight: 195 lb 8.8 oz Body Mass Index (BMI) 27.2 Intake and Output for Last 24 Hours 11/04/18 11/05/18 11/06/18 23:59 23:59 23:59 Intake Total 400 / 400 Balance 400 / 400 General: Awake HEENT: Atraumatic Oral: Moist Mucosa Neck: Supple Lungs: Clear to auscultation Cardiovascular: Normal S1, Normal S2 Abdomen: Soft Skin: No Rashes Neurological: No Focal Motor or Sensory Deficit Psych/Mental Status: Appropriate 11/06/18 03:30: WBC 6.0, RBC 4.26 L, Hgb 13.5, Hct 42.6, MCV 100.0 H, MCH 31.7, MCHC 31.7 L, Plt Count 142 L, MPV 10.4, Immature Gran % (Auto) 0.300, Neut % (Auto) 69.4, Lymph % (Auto) 15.7 L, [place] % (Auto) 11.2 H, Eos % (Auto) 2.7, Baso % (Auto) 0.7, Absolute Neuts (auto) 4.2, Nucleated RBC % 0 11/06/18 03:30: Sodium 143, Potassium 5.2 H, Chloride 108 H, Carbon Dioxide 29.0, Anion Gap 6, BUN 43 H, Creatinine 2.45 H, Est GFR (MDRD) Af Amer 33 L, Est GFR (MDRD) Non-Af 27 L, BUN/Creatinine Ratio 17.6, Glucose 116 H, Calcium 8.9, Troponin I < 0.015 11/06/18 03:30: PT 14.9, INR 1.2, APTT 30.7 11/06/18 03:30: Magnesium 2.3, Triglycerides 155, Cholesterol 124, LDL Cholesterol 57, VLDL Cholesterol 31, HDL Cholesterol 36 L 11/06/18 06:28: Troponin I < 0.015 11/06/18 11:15: Troponin I < 0.015 11/06/18 14:30: Sodium 140, Potassium 4.1, Chloride 108 H, Carbon Dioxide 29.0, Anion Gap 3 L, BUN 39 H, Creatinine 2.21 H, Est GFR (MDRD) Af Amer 37 L, Est GFR (MDRD) Non-Af 30 L, BUN/Creatinine Ratio 17.6, Glucose 121 H, Calcium 8.7 Rhythm: EKG: ECHO: Stress Test: Cardiac Cath: PCI: CT Surgery: Holter monitor: EPS: PPM: CXR: Chest CT Scan: Assessment/Plan 1. Chest pain: Patient has history of coronary artery disease. His stress test today did not reveal any evidence of significant ischemia. His chest pain is nonexertional and atypical by history. At this time it will be reasonable to continue medical therapy. He does have CKD which limits our ability to do coronary angiography as well. However at this time I do not think angiography is indicated. 2. Dyspnea on exertion: Patient has severely decreased LV systolic function and his dyspnea on exertion is likely related to this. He cannot be on an LOGAN in hibitor because of CKD. At this time he appears compensated. Continue current medications. He can be discharged home from a cardiac standpoint and can follow-up with Dr. Caceres as an outpatient.
--- NOTE | 2018-11-06 15:11 | PCM.DC ---
- Discharge Diagnoses Current Active Problems: Current Active and Chronic Problems (Last Updated 11/04/18 @ 11:18 by Migdalia Fisher) Chest pain (Acute) Mixed hyperlipidemia (Chronic) Presence of stent in coronary artery (Chronic ~09/23/06) PTCA and stenting of the LAD and diagonal 09/23/2006 Atherosclerotic heart disease of [place] coronary artery without angina pectoris (Chronic) Essential hypertension (Chronic) You will use the following diet at home:: Cardiac Discharge Activity: Return to Normal Activity Call your doctor if you observe: Shortness of breath, Dizziness, Fainting spells, Chest pain Allergies/Adverse Reactions: Allergies atorvastatin [From Lipitor] Adverse Reaction (Verified 08/15/18 19:49) myalgia leflunomide [From Arava] Adverse Reaction (Verified 08/15/18 19:49) PROBLEMS WITH MY FEET simvastatin [From Zocor] Adverse Reaction (Verified 08/15/18 19:49) myalgia Medications to take at Discharge Aspirin 325 mg PO DAILY@0800 05/22/16 Colchicine 0.6 mg PO DAILY 05/22/16 Finasteride [Proscar] 5 mg PO DAILY 05/22/16 Levothyroxine [Synthroid] 50 mcg PO DAILY 05/22/16 Nitroglycerin [Nitrostat] 0.4 mg SL PRN PRN 05/22/16 Tamsulosin HCl [Flomax] 0.4 mg PO DAILY 05/22/16 fexofenadine 180 mg tablet 180 mg PO QDAY 03/03/17 prednisone 10 mg tablet 5 mg PO DAILY tab 09/23/17 hydroxychloroquine 200 mg tablet 200 mg PO DAILY tab 11/10/17 tramadol 50 mg tablet 50 mg PO QHS PRN tab 11/10/17 pravastatin 20 mg tablet 20 mg PO QODAY #45 tab 11/24/17 amiodarone 200 mg tablet 200 mg PO DAILY #90 tab 12/30/17 carvedilol 6.25 mg tablet 6.25 mg PO BID #180 tab 01/05/18 albuterol sulfate 2.5 mg/3 mL (0.083 %) solution for nebulization 2.5 mg INHALATION Q4H PRN 03/26/18 furosemide 40 mg tablet 40 mg PO QDAY #90 tab 03/26/18 meclizine 25 mg chewable tablet 25 mg PO TID PRN tab 03/26/18 clopidogrel 75 mg tablet 75 mg PO DAILY #90 tab 07/21/18 Primary Care Physician: Miguel Pineda MD [Primary Care Provider] - Please follow up with your Primary Care Physician in: 1 Week Test Results: Test results from this visit will be discussed in further detail at your follow-up appointment, if applicable. Please Follow Up With: Yefri Caceres MD When: As scheduled 11/16/2018 Please Follow Up With: Rupal Castillo NP-C When: As scheduled 12/01/2018 Proposed Discharge Date: 11/06/18
--- NOTE | 2018-11-06 15:13 | PCM.DC.SUM ---
Discharge Date and Diagnosis Date of Admission: 11/06/18 Date of Discharge: 11/06/18 - Primary Discharge Diagnosis Active and Suspected Problems (Last Updated 11/04/18 @ 11:18 by Migdalia Fisher) 1. Chest pain, dyspnea on exertion-ACS ruled out 2. Acute kidney injury on chronic kidney disease stage III-IV with associated hyperkalemia 3. CAD status post PCI 4. Ischemic cardiomyopathy with EF 18% 5. PVT/SVT status post AICD 6. Type 2 diabetes mellitus 7. Hypertension 8. Hyperlipidemia 9. Hypothyroidism 10. Inflammatory arthritis 11. BPH 12. KENAN - Secondary Discharge Diagnosis Chronic Problems (Last Updated 11/04/18 @ 11:18 by Migdalia Fisher) Mixed hyperlipidemia (Chronic) Presence of stent in coronary artery (Chronic ~09/23/06) PTCA and stenting of the LAD and diagonal 09/23/2006 Atherosclerotic heart disease of [place] coronary artery without angina pectoris (Chronic) Essential hypertension (Chronic) Mixed sleep apnea (Chronic) BiPAP 17/11 mm of water with a backup rate of 12 Hypersomnolence disorder (Chronic) Dilated cardiomyopathy (Chronic) Paroxysmal ventricular tachycardia (Chronic) Syncope and collapse (Chronic) Abnormal result of cardiovascular function study, unspecified (Chronic) 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) Implant: 06/2000; Generator change: 03/17/2008 Hypothyroidism, iatrogenic (Chronic) 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 No pulmonary edema, congestive heart failure or confluent pneumonia. Electronically Signed: Jina Gonzalez MD at 4:20 EDT , Service support , Dr. Tolliver- Cardiology Operations: None Procedures: Stress test Summary of Care Provided: The patient is a 83 year old M admitted 11/06/2018 due to chest pain. 1. Chest pain, dyspnea on exertion-ACS ruled out-troponin negative. EKG without ST-T changes. Patient underwent nuclear stress test which was negative for ischemia. Cardiology consulted given ongoing dyspnea on exertion and history of significant CAD. Continue medical management per cardiology. Patient has upcoming appointment with Dr. Caceres. Continue outpatient follow-up with cardiology as scheduled. 2. Acute kidney injury on chronic kidney disease stage III-IV with associated hyperkalemia-resolved with gentle hydration. 3. CAD status post PCI-continue aspirin, Plavix, carvedilol. 4. Ischemic cardiomyopathy with EF 18%-continue aspirin, Plavix, statin, carvedilol. 5. PVT/SVT status post AICD 6. Type 2 diabetes mellitus-diet controlled. 7. Hypertension-stable, continue home Coreg and Lasix regimen. 8. Hyperlipidemia-continue statin. 9. Hypothyroidism-continue Synthroid regimen. 10. Inflammatory arthritis-continue Plaquenil, low-dose steroid. 11. BPH-continue Flomax, Proscar. 12. KENAN-continue home BiPAP regimen. Patient seen and examined prior to discharge. Physical assessment as noted below. Patient is stable for discharge with follow up recommendations as noted above. This patient was seen by RONA Giordano under the supervision of Dr. Nicole. - Physical Exam General: Alert, Oriented x3, Cooperative HEENT: Atraumatic, PERRLA, EOMI, Normocephalic Neck: Supple, No JVD, Negative Carotid Bruits Lungs: Clear to auscultation, Normal air movement Cardiovascular: Regular rate, Regular Rhythm, Normal S1, Normal S2, No murmurs Abdomen: Bowel Sounds Present, Soft, Non Tender, Non-Distended Extremities: No clubbing, No cyanosis, No edema, Capillary Refill Less than 3 Seconds Skin: No rashes, No breakdown Musculoskeletal: No Tenderness to Palpation of Joints or Extremities Neurological: Cranial nerves II-XII grossly intact, Neuro grossly intact Psych/Mental Status: Normal Affect, Appropriate Vital Signs Temp Pulse Resp BP Pulse Ox 97.5 F L 70 16 114/77 96 11/06/18 14:09 11/06/18 14:09 11/06/18 14:09 11/06/18 14:09 11/06/18 14:09 Oxygen Flow Rate (L/min) 2 Oxygen Delivery Method Room Air Weight: 195 lb 8.8 oz Body Mass Index (BMI) 27.2 Intake and Output for Last 24 Hours 11/04/18 11/05/18 11/06/18 23:59 23:59 23:59 Intake Total 400 / 400 Balance 400 / 400 Laboratory Tests Past 24 Hrs 11/06/18 11/06/18 11/06/18 03:30 03:30 03:30 WBC 6.0 RBC 4.26 L Hgb 13.5 Hct 42.6 MCV 100.0 H MCH 31.7 MCHC 31.7 L RDW Std Deviation 58.2 H RDW Coeff of [place] 15.8 H Plt Count 142 L MPV 10.4 Immature Gran % (Auto) 0.300 Neut % (Auto) 69.4 Lymph % (Auto) 15.7 L [place] % (Auto) 11.2 H Eos % (Auto) 2.7 Baso % (Auto) 0.7 Absolute Neuts (auto) 4.2 Absolute Lymphs (auto) 0.94 Nucleated RBC % 0 PT 14.9 INR 1.2 APTT 30.7 Sodium 143 Potassium 5.2 H Chloride 108 H Carbon Dioxide 29.0 Anion Gap 6 BUN 43 H Creatinine 2.45 H Estim Creat Clear Calc 24.33 Est GFR (MDRD) Af Amer 33 L Est GFR (MDRD) Non-Af 27 L BUN/Creatinine Ratio 17.6 Glucose 116 H Calcium 8.9 Magnesium Troponin I < 0.015 Triglycerides Cholesterol LDL Cholesterol VLDL Cholesterol HDL Cholesterol 11/06/18 11/06/18 11/06/18 03:30 06:28 11:15 WBC RBC Hgb Hct MCV MCH MCHC RDW Std Deviation RDW Coeff of [place] Plt Count MPV Immature Gran % (Auto) Neut % (Auto) Lymph % (Auto) [place] % (Auto) Eos % (Auto) Baso % (Auto) Absolute Neuts (auto) Absolute Lymphs (auto) Nucleated RBC % PT INR APTT Sodium Potassium Chloride Carbon Dioxide Anion Gap BUN Creatinine Estim Creat Clear Calc Est GFR (MDRD) Af Amer Est GFR (MDRD) Non-Af BUN/Creatinine Ratio Glucose Calcium Magnesium 2.3 Troponin I < 0.015 < 0.015 Triglycerides 155 Cholesterol 124 LDL Cholesterol 57 VLDL Cholesterol 31 HDL Cholesterol 36 L 11/06/18 14:30 WBC RBC Hgb Hct MCV MCH MCHC RDW Std Deviation RDW Coeff of [place] Plt Count MPV Immature Gran % (Auto) Neut % (Auto) Lymph % (Auto) [place] % (Auto) Eos % (Auto) Baso % (Auto) Absolute Neuts (auto) Absolute Lymphs (auto) Nucleated RBC % PT INR APTT Sodium 140 Potassium 4.1 Chloride 108 H Carbon Dioxide 29.0 Anion Gap 3 L BUN 39 H Creatinine 2.21 H Estim Creat Clear Calc 26.97 Est GFR (MDRD) Af Amer 37 L Est GFR (MDRD) Non-Af 30 L BUN/Creatinine Ratio 17.6 Glucose 121 H Calcium 8.7 Magnesium Troponin I Triglycerides Cholesterol LDL Cholesterol VLDL Cholesterol HDL Cholesterol POC Glucose 11/06/18 11/06/18 10:58 06:44 POC Glucose 120 H 124 H Discharge Diet: Low fat/ Low Cholesterol Discharge Activity: Return to Normal Activity Call your doctor if you observe: Shortness of breath, Dizziness, Fainting spells, Chest pain Home Medications: Medications to take at Discharge Aspirin 325 mg PO DAILY@0800 05/22/16 Colchicine 0.6 mg PO DAILY 05/22/16 Finasteride [Proscar] 5 mg PO DAILY 05/22/16 Levothyroxine [Synthroid] 50 mcg PO DAILY 05/22/16 Nitroglycerin [Nitrostat] 0.4 mg SL PRN PRN 05/22/16 Tamsulosin HCl [Flomax] 0.4 mg PO DAILY 05/22/16 fexofenadine 180 mg tablet 180 mg PO QDAY 03/03/17 prednisone 10 mg tablet 5 mg PO DAILY tab 09/23/17 hydroxychloroquine 200 mg tablet 200 mg PO DAILY tab 11/10/17 tramadol 50 mg tablet 50 mg PO QHS PRN tab 11/10/17 pravastatin 20 mg tablet 20 mg PO QODAY #45 tab 11/24/17 amiodarone 200 mg tablet 200 mg PO DAILY #90 tab 12/30/17 carvedilol 6.25 mg tablet 6.25 mg PO BID #180 tab 01/05/18 albuterol sulfate 2.5 mg/3 mL (0.083 %) solution for nebulization 2.5 mg INHALATION Q4H PRN 03/26/18 furosemide 40 mg tablet 40 mg PO QDAY #90 tab 03/26/18 meclizine 25 mg chewable tablet 25 mg PO TID PRN tab 03/26/18 clopidogrel 75 mg tablet 75 mg PO DAILY #90 tab 07/21/18 Primary Care Physician: Miguel Pineda MD [Primary Care Provider] - Please follow up with your Primary Care Physician in: 1 Week Please Follow Up With: Yefri Caceres MD When: As scheduled 11/16/2018 Please Follow Up With: Rupal Castillo NP-C When: As scheduled 12/01/2018 Disposition: Home Minutes spent on discharge:: 35 Patient Condition:: Stable Medical Necessity - Tobacco Use Smoking Status: Former smoker Tobacco Use: Non-smoker Meaningful Use Info Meaningful Use Diagnoses (Choose all that apply): None applicable
== END 2018-11-06 15:12 | disposition home or self-care (01) ==
LOC: ED 04:30 → PCU 04:31
PROVIDERS: Nurse Practitioner Family; Admitting Provider Family Medicine; Emergency Provider Emergency Medicine; Family Provider Family Medicine; PCP Family Medicine; Visit Provider Internal Medicine
DX: R07.89 Other chest pain (principal); I25.10 Atherosclerotic heart disease of native coronary artery without angina pectoris; E78.2 Mixed hyperlipidemia; E11.22 Type 2 diabetes mellitus with diabetic chronic kidney disease; N17.9 Acute kidney failure, unspecified; I25.5 Ischemic cardiomyopathy; I12.9 Hypertensive chronic kidney disease with stage 1 through stage 4 chronic kidney disease, or unspecified chronic kidney disease; N18.3 Chronic kidney disease, stage 3 (moderate); E03.2 Hypothyroidism due to medicaments and other exogenous substances; E87.5 Hyperkalemia; M13.80 Other specified arthritis, unspecified site; N40.0 Benign prostatic hyperplasia without lower urinary tract symptoms; G47.33 Obstructive sleep apnea (adult) (pediatric); Z79.899 Other long term (current) drug therapy; Z95.810 Presence of automatic (implantable) cardiac defibrillator; Z79.82 Long term (current) use of aspirin; Z87.891 Personal history of nicotine dependence; Z95.0 Presence of cardiac pacemaker; Z79.02 Long term (current) use of antithrombotics/antiplatelets
CPT/HCPCS: 36415; 71045; 78452; 80048; 80061; 82962; 83735; 84484; 85025; 85610; 85730; 93005; 93017; 96360; 96361; 97161; 97802; 99218; 99284; A9500; J7030; A4216; G0378; J2785

== ENCOUNTER → 2018-12-08 10:21 | Outpatient (CLI) | payer MEDICARE, OTHER, SELFPAY ==
[2018-12-08 09:18] VITALS: BMI 28.5
--- NOTE | 2018-12-08 10:42 | RAD_ITS ---
STUDY: X-RAY CHEST REASON FOR EXAM: Male, 83 years old. Shortness of breath and cough, fever TECHNIQUE: PA and lateral views of the chest. COMPARISON: 11/06/2018 FINDINGS: Stable appearance of the left subclavian pacemaker There are interstitial fibrotic changes of the lungs. Stable blunting of both costophrenic angles. Normal size heart. Normal mediastinum and [place]. Normal visualized pulmonary arteries. There is atherosclerotic calcification of the aortic arch with tortuosity. There are diffuse degenerative changes of the visualized thoracic spine. There is degenerative osteoarthritis of the bilateral shoulders. There is no demonstrated abnormality of the visualized soft tissue structures of the upper abdomen. RAD/Chest PA and Lateral IMPRESSION: Chronic interstitial changes, no superimposed acute pulmonary process or significant interval change Electronically Signed: Lars Pace MD at 11:17 EDT , Service support ,
[2018-12-08 11:36] VITALS: PULSE 73; PULSE 74; PULSE 76; PULSE 82; PULSE 84; PULSE 86; O2SAT 93; O2SAT 94; O2SAT 95; O2SAT 97
[2018-12-08 11:55] LABS: Anion Gap 4 (5-15); BUN 34 mg/dL (7-18); BUN/Creat Ratio 15.7 RATIO (10-20); Calcium,Total 9.1 mg/dL (8.5-10.1); Chloride 108 mmol/L (98-107); Creatinine, Serum 2.16 mg/dL (0.70-1.30); EST Glomerular Filtration Rate 31 mL/min (>60); Est Glom Filt Rate - Afr Amer 38 mL/min (>60); Glucose 89 mg/dL (74-106); Potassium 4.3 mmol/L (3.5-5.1); Sodium Level 141 mmol/L (136-145)
--- NOTE | 2018-12-08 14:00 | PCM.PSN.6M ---
PSN 6 Minute Walk Test - 6 Minute Walk Test 6 Minute Walk Test: 6 Minute Walk Test PSN:6-Minute Walk Test Start: 12/08/18 11:35 Freq: Status: Active Protocol: [id number] Document 12/08/18 11:36 ZULEMA (Rec: 12/08/18 11:38 ZULEMA [id number]) 6 Minute Walk Test Date Performed 12/08/18 Time Performed 11:00 Height 5 ft 11 in Weight: 86.183 kg Weight in Pounds 190.[address]: Rupal Castillo Assistive device used: None Pre-test Oxygen Delivery Method Room Air Pulse Ox (%) 95 Pulse Rate (60-100 beats/min) 73 Dyspnea Alejandra Scale (0-10) 0.5 Exertion Alejandra Scale (6-20) 6 1st minute Oxygen Delivery Method Room Air Pulse Ox (%) 94 Pulse Rate (60-100 beats/min) 76 2nd minute Oxygen Delivery Method Room Air Pulse Ox (%) 97 Pulse Rate (60-100 beats/min) 76 3rd minute Oxygen Delivery Method Room Air Pulse Ox (%) 94 Pulse Rate (60-100 beats/min) 82 4th minute Oxygen Delivery Method Room Air Pulse Ox (%) 93 Pulse Rate (60-100 beats/min) 82 5th minute Oxygen Delivery Method Room Air Pulse Ox (%) 93 Pulse Rate (60-100 beats/min) 84 6th minute Oxygen Delivery Method Room Air Pulse Ox (%) 94 Pulse Rate (60-100 beats/min) 86 Dyspnea Alejandra Scale (0-10) 3 Exertion Alejandra Scale (6-20) 14 Post-test Oxygen Delivery Method Room Air Pulse Ox (%) 97 Pulse Rate (60-100 beats/min) 74 Full Laps Walked 13 Partial Lap, Number of Tiles Walked 15 Total Distance Walked (ft) 782 - Interpretation Interpretation: The patient was able to ambulate 782 feet over the course of 6 minutes on room air with no assistive devices or breaks. The patient did not experience any significant desaturation or tachycardia. These findings are consistent with a musculoskeletal limitation exercise tolerance. - Recommendations Recommendations: No supplemental oxygen is indicated at this time.
== END ==
PROVIDERS: Family Provider Family Medicine; PCP Family Medicine; Referring Provider Nurse Practitioner Acute Care; Visit Provider Nurse Practitioner Acute Care
DX: R06.00 Dyspnea, unspecified (principal)
CPT/HCPCS: 36415; 71046; 80048; 83880; 94618

== ENCOUNTER → 2018-12-15 07:57 | Outpatient (CLI) | payer MEDICARE, OTHER, SELFPAY ==
[2018-11-16 09:50] VITALS: BMI 28.3
[2018-12-08 09:18] VITALS: BMI 28.5
--- NOTE | 2018-12-15 07:59 | ECHOD_ITS ---
Reason For Study: Dyspnea/SOB Procedure This was a 2D Doppler, Color Flow transthoracic echocardiogram. The exam was of adequate technical quality. Exam performed in department. Left Ventricle Moderately dilated left ventricle. Severe segmental systolic dysfunction (see wall motion). The estimated ejection fraction is 15 %. Anterio-Basal: Hypokinetic. Lateral-Basal: Hypokinetic. Posterior-Basal: Hypokinetic. Infero-Basal: Severely Hypokinetic. Basal inferoseptal: Akinetic. Basal anteroseptal: Severely Hypokinetic. Mid-Anterior : Severely Hypokinetic. Mid-Lateral : Severely Hypokinetic. Mid-Posterior: Akinetic. Mid-Inferior: Akinetic. Mid-inferoseptal : Akinetic. Mid-anteroseptal : Akinetic. [place] : Akinetic. Right Ventricle Normal RV size. ICD or pacer leads identified within the right ventricle. Mild global right ventricular systolic dysfunction. Atria The left atrium is moderately enlarged. The right atrium is mildly enlarged. ICD or pacer leads identified within the right atrium. No doppler evidence for ASD. Mitral Valve There is no mitral annular calcification. Mild diffuse mitral valve thickening. Mild papillary muscle dysfunction of the mitral valve. Mild-Moderate (1-2+) mitral valve insufficiency. Tricuspid Valve Normal tricuspid valve. Moderate (2+) tricuspid valve insufficiency. Right ventricular systolic pressure estimated to be 41 mmHg. Aortic Valve Trisinus/trileaflet aortic valve. Mild focal aortic valve calcification. Mild (1+) aortic valve insufficiency. Pulmonic Valve The pulmonic valve is not well visualized. Mild (1+) pulmonic valve insufficiency. Great Vessels Borderline enlarged aortic root. Pericardium/Pleural No pericardial effusion. MMode/2D Measurements & Calculations LVIDd: 6.6 cm IVSd: 0.93 cm Ao root diam: 3.9 cm LVIDs: 6.8 cm LVPWd: 1.3 cm LA dimension: 4.7 cm RVDd: 4.3 cm FS: -4.5 % LAV(MOD-bp): 114.1 ml LVAd ap4: 56.6 cm2 SV(MOD-sp4): 61.2 ml LAV(MOD-bp) Indexed: 53.7 ml/m2 EDV(MOD-sp4): 264.9 ml LAV(MOD-sp2): 102.1 ml EDV(sp4-el): 281.9 ml LAV(MOD-sp4): 117.2 ml LVAs ap4: 48.5 cm2 ESV(MOD-sp4): 203.7 ml ESV(sp4-el): 214.7 ml EF(MOD-sp4): 23.1 % EF(sp4-el): 23.9 % SV(sp4-el): 67.3 ml LA A4 area: 33.8 cm2 RA A4 area: 25.6 cm2 Time Measurements MV dec time: 0.13 sec Doppler Measurements & Calculations MV E max saul: 71.5 cm/sec Med Peak E' Saul: 2.5 cm/sec MV V2 max: 69.0 cm/sec MV A max saul: 59.5 cm/sec E/E' med: 29.2 MV max P.9 mmHg MV E/A: 1.2 MV V2 mean: 44.1 cm/sec MV mean P.90 mmHg MV V2 VTI: 20.1 cm MV P1/2t max saul: 69.0 cm/sec Ao V2 max: 91.7 cm/sec AI max saul: 383.9 cm/sec MV P1/2t: 63.3 msec Ao max P.4 mmHg AI max P.4 mmHg Ao V2 mean: 63.3 cm/sec MV dec slope: 319.5 cm/sec2 Ao mean P.8 mmHg AI dec slope: 265.4 cm/sec2 MVA(P1/2t): 3.5 cm2 Ao V2 VTI: 19.1 cm AI P1/2t: 423.6 msec LV V1 max: 64.1 cm/sec MR max saul: 428.8 cm/sec PA V2 max: 57.8 cm/sec LV V1 max P.6 mmHg MR max P.5 mmHg LV V1 mean P.81 mmHg LV V1 mean: 41.7 cm/sec LV V1 VTI: 12.4 cm PI dec slope: 191.4 cm/sec2 TR max saul: 309.1 cm/sec TR max P.2 mmHg Interpretation Summary Moderately dilated left ventricle. Severe segmental systolic dysfunction (see wall motion). The estimated ejection fraction is 15 %. Mild global right ventricular systolic dysfunction. The left atrium is moderately enlarged. The right atrium is mildly enlarged. Mild diffuse mitral valve thickening. Mild papillary muscle dysfunction of the mitral valve. Mild-Moderate (1-2+) mitral valve insufficiency. Moderate (2+) tricuspid valve insufficiency. Mild focal aortic valve calcification. Mild (1+) aortic valve insufficiency. Mild (1+) pulmonic valve insufficiency. Borderline enlarged aortic root. Right ventricular systolic pressure estimated to be 41 mmHg. Transmitral diastolic flow velocities suggest diastolic dysfunction (pseudonormal pattern). ICD or pacer leads identified within the right atrium ICD or pacer leads identified within the right ventricle. Ordering Physician: Yefri Caceres Referring Physician: Yefri Caceres Performed By: Castillo Dalton RCS
== END ==
PROVIDERS: Family Provider Family Medicine; PCP Family Medicine; Referring Provider Internal Medicine Cardiovascular Disease; Visit Provider Internal Medicine Cardiovascular Disease
DX: R06.02 Shortness of breath (principal); R06.00 Dyspnea, unspecified; I42.9 Cardiomyopathy, unspecified
CPT/HCPCS: 93306

== ENCOUNTER → 2018-12-29 09:35 | Outpatient (CLI) | payer MEDICARE, OTHER, SELFPAY ==
[2018-12-22 11:27] VITALS: BMI 26.7
[2018-12-29 12:35] LABS: Absolute Lymphocyte Count 1.21 X10^3/uL (0.83-4.51); Absolute Neutrophil Count 3.9 X10^3/uL (2.0-7.7); Basophil# 0.04 X10^3/uL; Basophil% 0.7 % (0-1); Eosinophil# 0.14 X10^3/uL; Eosinophils% 2.4 % (0-5); Hemoglobin 12.8 g/dL (13.0-16.5); Lymphocyte # 1.21 X10^3/ul (4.0); Lymphocyte % 20.5 % (19-41); Mean Corp Hgb Conc 30.5 g/dL (32-36); Mean Corpuscular Hgb 29.9 pg (27.0-32.0); Mean Corpuscular Volume 98.1 fL (80-94); Mean Platelet Vol. 10.7 fl (6.2-12.0); Monocyte# 0.57 X10^3/uL; Monocyte% 9.6 % (0-10); NRBC Flagged by Analyzer 0 % (0-5); Neutrophil # 3.93 X10^3/uL (2.7-7.7); Neutrophil % 66.5 % (47-70); Platelet Count 151 K/mm3 (150-450); RBC Distribution Width CV 15.3 % (11.6-14.6); RBC Distribution Width SD 55.1 fl (35.1-43.9); Red Blood Count 4.28 M/mm3 (4.6-6.2); White Blood Count 5.9 K/mm3 (4.4-11.0)
[2018-12-29 12:52] LABS: ALB/GLOB Ratio 0.9 RATIO (0.9-2.4); AST(SGOT) 19 U/L (15-37); Alanine Aminotransfer ALT/SGPT 25 U/L (16-61); Albumin, Serum 3.5 g/dL (3.2-5.0); Alkaline Phosphatase 73 U/L (45-117); Anion Gap 4 (5-15); BUN 33 mg/dL (7-18); BUN/Creat Ratio 13.8 RATIO (10-20); Calcium,Total 9.1 mg/dL (8.5-10.1); Chloride 106 mmol/L (98-107); Creatinine, Serum 2.39 mg/dL (0.70-1.30); EST Glomerular Filtration Rate 28 mL/min (>60); Est Glom Filt Rate - Afr Amer 34 mL/min (>60); Globulin 4.1 g/dL (2.2-4.2); Glucose 81 mg/dL (74-106); Potassium 3.9 mmol/L (3.5-5.1); Protein, Total 7.6 g/dL (6.4-8.2); Sodium Level 141 mmol/L (136-145)
== END ==
PROVIDERS: Family Provider Family Medicine; PCP Family Medicine; Referring Provider Internal Medicine Rheumatology; Visit Provider Internal Medicine Rheumatology
DX: M06.4 Inflammatory polyarthropathy (principal); M17.0 Bilateral primary osteoarthritis of knee; M1A.9XX1 Chronic gout, unspecified, with tophus (tophi); M21.40 Flat foot [pes planus] (acquired), unspecified foot; Z79.899 Other long term (current) drug therapy
CPT/HCPCS: 36415; 80053; 85025

== ENCOUNTER → 2019-01-05 07:24 | Day surgery (SDC) | payer MEDICARE, OTHER, SELFPAY ==
[2018-12-08 09:18] VITALS: BMI 28.5
[2018-12-22 11:27] VITALS: BMI 26.7
[2018-12-22 13:16] LABS: Hemoglobin 13.6 g/dL (13.0-16.5); Mean Corp Hgb Conc 30.9 g/dL (32-36); Mean Corpuscular Hgb 30.3 pg (27.0-32.0); Mean Platelet Vol. 9.9 fl (6.2-12.0); Platelet Count 164 K/mm3 (150-450); RBC Distribution Width CV 14.9 % (11.6-14.6); RBC Distribution Width SD 54.4 fl (35.1-43.9); Red Blood Count 4.49 M/mm3 (4.6-6.2); White Blood Count 5.8 K/mm3 (4.4-11.0)
[2018-12-22 13:20] LABS: International Normalized Ratio 1.2; Prothrombin Time (Protime)PT. 14.6 SECONDS (11.7-14.9)
[2018-12-22 13:21] LABS: Partial Thromboplast Time 30.5 Seconds (24.1-36.2)
[2018-12-22 13:38] LABS: Anion Gap 6 (5-15); BUN 45 mg/dL (7-18); BUN/Creat Ratio 19.1 RATIO (10-20); Calcium,Total 9.3 mg/dL (8.5-10.1); Chloride 103 mmol/L (98-107); Creatinine, Serum 2.35 mg/dL (0.70-1.30); EST Glomerular Filtration Rate 28 mL/min (>60); Est Glom Filt Rate - Afr Amer 34 mL/min (>60); Glucose 102 mg/dL (74-106); Potassium 4.3 mmol/L (3.5-5.1); Sodium Level 141 mmol/L (136-145)
--- NOTE | 2018-12-24 03:45 | HP_ITS ---
HPI HPI History of Present Illness Surgical H&P: Yes Details: KACEY LOPEZ, is a 83 M who presents to the office today for increased shortness of breath. He has a history of coronary artery disease status post stenting to LAD and diagonal in August 2006, ischemic cardiomyopathy, paroxysmal ventricular tachycardia with prophylactic ICD placement, hypertension, hyperlipidemia, and renal insufficiency. He was recently hospitalized at [facility]. There were concerns of chest discomfort which was subsequently thought to be noncardiac in etiology. He underwent a pharmacologic stress nuclear imaging study. According to the report there was no evidence of significant ischemia. His LVEF was reported at 18%. He did have a repeat echocardiogram which demonstrated Left ventricle dilated and severely dysfunctional with an estimated LVEF of approximately 15% which compared to previous noninvasive studies appears to have decreased and compared to his most recent previous invasive study from 2017 also appears to be somewhat decreased. With his shortness of breath it was recommended that he undergo a diagnostic heart catheterization. Patient was in to see pulmonary, they had also noted that he was short of breath. They had obtained labs and BNP was elevated. They had started him on diuretics, since that time he has lost 12 pounds. He does feel that his breathing is somewhat better however he still notes that he is more short of breath than what he had been a few months ago. He does not have any chest discomfort since his hospital stay. He does not have any palpitations that he is aware of. He does not have any lightheadedness, dizziness. He does not have any lower extremity edema. Intake Vital Signs 12/22/18 Height 5 ft 11 in 12/22/18 Weight: 192 lb 12/22/18 Body Mass Index (BMI) 26.7 12/22/18 Blood Pressure 107/67 12/22/18 Blood Pressure Location Lt brachial 12/22/18 Blood Pressure Position Sitting 12/22/18 Respiratory Rate 18 12/22/18 Pulse Rate 62 12/22/18 Pulse Source Monitor 12/22/18 Pulse Ox 97 Intake Visit Reasons: Dyspnea Visitor Service Assistant Required: No Is patient in pain?: No Allergies atorvastatin [From Lipitor] Adverse Reaction (Verified 12/22/18 11:27) myalgia leflunomide [From Arava] Adverse Reaction (Verified 12/22/18 11:27) PROBLEMS WITH MY FEET simvastatin [From Zocor] Adverse Reaction (Verified 12/22/18 11:27) myalgia Medications Aspirin 325 mg PO DAILY@0800 05/22/16 [History Confirmed 12/22/18] Colchicine 0.6 mg PO DAILY 05/22/16 [History Confirmed 12/22/18] Finasteride [Proscar] 5 mg PO DAILY 05/22/16 [History Confirmed 12/22/18] Levothyroxine [Synthroid] 50 mcg PO DAILY 05/22/16 [History Confirmed 12/22/18] Tamsulosin HCl [Flomax] 0.4 mg PO DAILY 05/22/16 [History Confirmed 12/22/18] fexofenadine 180 mg tablet 180 mg PO QDAY 03/03/17 [History Confirmed 12/22/18] prednisone 10 mg tablet 5 mg PO DAILY tab 09/23/17 [History Confirmed 12/22/18] hydroxychloroquine 200 mg tablet 200 mg PO DAILY tab 11/10/17 [History Confirmed 12/22/18] tramadol 50 mg tablet 50 mg PO QHS PRN tab 11/10/17 [History Confirmed 12/22/18] albuterol sulfate 2.5 mg/3 mL (0.083 %) solution for nebulization 2.5 mg INHALATION Q4H PRN 03/26/18 [History Confirmed 12/22/18] meclizine 25 mg chewable tablet 25 mg PO TID PRN tab 03/26/18 [History Confirmed 12/08/18] clopidogrel 75 mg tablet 75 mg PO DAILY #90 tab 07/21/18 [Rx Confirmed 12/22/18] pravastatin 20 mg tablet 20 mg PO QODAY #45 tab 11/10/18 [Rx Confirmed 12/22/18] amiodarone 200 mg tablet 200 mg PO DAILY #90 tab 11/16/18 [Rx Confirmed 12/22/18] carvedilol 6.25 mg tablet 6.25 mg PO BID #180 tab 11/16/18 [Rx Confirmed 12/22/18] nitroglycerin 0.4 mg sublingual tablet 0.4 mg SUBLINGUAL Q5-15M PRN #25 tab 11/16/18 [Rx Confirmed 12/22/18] furosemide 40 mg tablet 40 mg PO QDAY #90 tab 12/22/18 [Rx Confirmed 12/22/18] PFSH Medical History Mixed hyperlipidemia (Chronic) Presence of stent in coronary artery (Chronic ~09/23/06) Atherosclerotic heart disease of [place] coronary artery without angina pectoris (Chronic) Essential hypertension (Chronic) Dilated cardiomyopathy (Chronic) Paroxysmal ventricular tachycardia (Chronic) Syncope and collapse (Chronic) Abnormal result of cardiovascular function study, unspecified (Chronic) Hypothyroidism, 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) Dyspnea (Chronic) Chest pain (Acute) Chronic renal failure, stage 3 (moderate) (Chronic) Diabetes mellitus type 2 in nonobese (Chronic) Sustained ventricular tachycardia (Chronic) Hypothyroidism (Chronic) Cardiomyopathy (Chronic) Fatigue (Resolved) Myalgia (Resolved) Surgical History 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) Presence of coronary angioplasty implant and graft (Chronic ~09/23/06) History of appendectomy (Resolved) Family History Mother , age 90 Alzheimers disease Brother Cancer Brother Hypertension Brother CAD (coronary artery disease) Sister CAD (coronary artery disease) Sister Breast cancer Social History (Updated 12/24/18 @ 15:45 by MARTELL Patel) Smoking Status: Former smoker how long ago did patient quit smokin years ago alcohol intake: current alcohol intake frequency: a few times a month substance use type: does not use caffeine: Yes Type: coffee Number of servings: 1 what type of physical activity do you participate in: none seatbelt use: never ROS Const Const: Positive for fatigue (increased) and weakness (bilat LE); negative for frequent falls, excessive sweating, weight gain or weight loss Eyes Eyes: Negative for transient loss of vision, blurry vision or change in vision ENT ENT: Positive for balance problems (slightly unsteady at times); negative for dizziness Cardio Chest Pain: No Palpitations: No Edema: Bilateral Muscle aches with walking: None Resp Respiratory: Positive for SOB with activity (slightly increased) and SOB at rest (slight) GI GI: Negative vomiting or vomiting blood/hematemesis : Negative for hematuria Musc Musc: Positive for balance problems (slightly unsteady at times) Skin Skin: Negative non-healing lesions or rash Neuro Neuro: Positive for weakness (bilat LE); negative for dizziness, frequent falls or blurry vision [place] Hematologic/Lymphatic: Negative for easy bleeding Endo Endo: Positive for fatigue (increased); negative for excessive sweating Psych Psych: Negative for anxiety or depression Allergy Allergy/Immunology: Negative for rash Cardiology Exam Const Appearance: cooperative, healthy appearing, comfortable, no acute distress, well developed and well groomed Nutritional Appearance: well nourished and overweight Orientation: alert, awake and oriented x3 Head Head: normal to inspection, normocephalic and atraumatic Ears: hearing grossly normal bilaterally Nose: external nose normal Face and Sinus: face symmetric Mouth: oral mucosae normal Eyes Eyelids: eyelids normal Conjunctivae: conjunctivae normal Pupils: PERRL EOM: EOM intact bilaterally Neck Neck: normal visual inspection and full ROM Carotids: normal carotid upstroke Chest Chest inspection: normal inspection of the chest, symmetric chest movement and normal respiratory effort Auscultation: Bilateral: Clear to Auscultation Cardio Palpation: normal PMI Rate: regular rate Rhythm: ectopic beats Heart sounds: S1 normal and S2 normal; negative rub, gallop or murmur GI GI: normal to inspection, soft and bowel sounds present Neuro General: alert, awake and oriented x3 Skin Skin: no rashes or lesions noted Extremities Pulses: Normal: Right Radial Pulse, Left Radial Pulse Lower Extremity Edema: +1: Left, Trace: Right Psych Psychological: normal affect Assessment & Plan 1. Dyspnea on exertion R06.09 Plan With patient's worsening heart function and worsening shortness of breath would like to pursue a diagnostic heart catheterization to further assess. Patient is agreeable with this. This is scheduled with Dr. Caceres for December 05. As patient is now taking his Lasix on a routine basis would like to repeat his BMP. Patient Instructions Your heart cath is scheduled for 01/05. Your procedure is scheduled for 0930. You will either arrive at 0730 or 0800. You can not have anything to eat or drink after midnight. In the morning with a small sip of water take: amiodarone, Carvedilol, plaquenil, levothyroxine, tamsulosin, finasteride and your clopidogrel. Get your labs done today. You will need a cpr ambulance driver that day, if you have a stent placed you will spend the night. 2. Atherosclerosis of [place] artery of extremity with intermittent claudication, unspecified extremity I70.219 Plan Patient has not had any worsening angina since he has been home from the hospital however with his worsening heart function we are going to pursue a diagnostic heart catheterization. He will continue with aggressive medical management. He will follow-up after heart catheterization. 3. Cardiomyopathy, unspecified type I42.9 Plan Patient does have a decreased ejection fraction of 15%. He will continue with his beta-teetee, diuretics. He is not on an LOGAN inhibitor due to his renal insufficiency. May need to consider adjusting medications after his heart catheterization. 4. Essential hypertension I10 Plan Blood pressures controlled on current medications. Will not make any adjustments. 5. Mixed hyperlipidemia E78.2 Plan Patient will continue with current dose of statin. Recent lipid profile demonstrates a total cholesterol of 124, HDL 36, LDL 57. 6. Chronic renal failure, stage 3 (moderate) N18.3 Plan As patient does have stage III renal insufficiency. Would like to hydrate patient with IV fluids prior to his heart catheterization per Plan Detail Other Orders Orders: 12 Lead EKG performed by MASOUD 12/22/18 I25.10, R06.00 Other Medications New: furosemide 40 mg PO QDAY 90 tabs 3RF Additional Comments Thank you for allowing us to participate in patient's plan of care, if you have any questions please do not hesitate to call. This note was generated using a voice recognition system and there may be incorrect words, spelling or punctuation errors that were not noted when reviewing the office note prior to saving. Follow Up 12/22/18 (cancel appt with me on 12/31, please print labs for him to have done- he is scheduled for a heart cath) Coding Level of Care Code Off vis,est,level 4 Diagnoses Dyspnea on exertion R06.09 ??Dyspnea type: dyspnea on exertion Atherosclerosis of [place] artery of extremity with intermittent claudication, unspecified extremity I70.219 ??Peripheral atherosclerosis location: unspecified extremity Cardiomyopathy, unspecified type I42.9 ??Cardiomyopathy type: unspecified Essential hypertension I10 Mixed hyperlipidemia E78.2 Chronic renal failure, stage 3 (moderate) N18.3 Coding Level of Care Code Off vis,est,level 4 Diagnoses Dyspnea on exertion R06.09 ??Dyspnea type: dyspnea on exertion Atherosclerosis of [place] artery of extremity with intermittent claudication, unspecified extremity I70.219 ??Peripheral atherosclerosis location: unspecified extremity Cardiomyopathy, unspecified type I42.9 ??Cardiomyopathy type: unspecified Essential hypertension I10 Mixed hyperlipidemia E78.2 Chronic renal failure, stage 3 (moderate) N18.3 Supplemental Info Supplemental Information Echocardiogram in April 2016 showed normal LV size, moderately severe global left ventricular systolic dysfunction, estimated ejection fraction of 30%, diastolic dysfunction, mild tricuspid valve insufficiency, and mild aortic valve insufficiency. Echocardiogram in November 2018 Moderately dilated left ventricle. Severe segmental systolic dysfunction (see wall motion). The estimated ejection fraction is 15 %. Mild global right ventricular systolic dysfunction. The left atrium is moderately enlarged. The right atrium is mildly enlarged. Mild diffuse mitral valve thickening. Mild papillary muscle dysfunction of the mitral valve. Mild-Moderate (1-2+) mitral valve insufficiency. Moderate (2+) tricuspid valve insufficiency. Mild focal aortic valve calcification. Mild (1+) aortic valve insufficiency. Mild (1+) pulmonic valve insufficiency. Borderline enlarged aortic root. Right ventricular systolic pressure estimated to be 41 mmHg. Transmitral diastolic flow velocities suggest diastolic dysfunction (pseudonormal pattern). ICD or pacer leads identified within the right atrium ICD or pacer leads identified within the right ventricle. Stress test from March 2014 showed peak EKG with continued nonspecific T-wave abnormality and was negative for stress-induced myocardial ischemia and reported an ejection fraction of 39%. Stress Test Report Date: November 06, 2018 Procedure: Pharmacologic stress nuclear imaging study Indications: Chest pain Consent: Per the patient Procedure: The patient underwent pharmacologic (Regadenoson) evaluation with a peak heart rate of 85 beats per minute (62 %predicted maximal heart rate) and a peak blood pressure of 116/70 mmHg. The baseline ECG demonstrated normal sinus rhythm, nonspecific intraventricular conduction delay, possible prior anterior MN, nonspecific ST-T changes. EKG during lexiscan infusion revealed no significant change from baseline. EKG post infusion revealed no significant change from baseline [There were no cardiac dysrhythmias pretest, during pharmacologic infusion, or recovery]. [There was no complaint of chest discomfort during pharmacologic infusion or recovery]. The examination was discontinued secondary to completion of protocol. Impression: 1. Lexiscan stress test test is negative for Lexiscan infusion induced EKG changes of ischemia. 2. Lexiscan stress test test is negative for Lexiscan infusion induced chest pain. 3. Results of the nuclear portion of the test is as below Myocardial perfusion imaging study: Technique: The patient was injected with 12 millicuries of technetium 99m Cardiolite and subsequently rest SPECT Cardiolite nuclear imaging was obtained in the horizontal long, vertical long, and short axis views. The patient underwent pharmacologic (Regadenoson) evaluation. Please see above for details. The patient was injected with 31.2 millicuries of technetium 99m Cardiolite and subsequently stress SPECT Cardiolite nuclear imaging was obtained in the horizontal long, vertical long, and short axis views. A gated Cardiolite study at peak stress was obtained. Interpretation: Rest and stress SPECT Cardiolite nuclear imaging status post realignment, normalization, and attenuation correction demonstrate moderately decreased radioisotope uptake in the apex on both the rest and stress images. This is suggestive of prior apical myocardial infarction. Prior to attenuation correction there is also decreased radioisotope uptake in the inferior wall that gets better with attenuation correction suggestive of diaphragmatic attenuation artifact. There is no evidence of significant ischemia. Gated images reveal severe global hypokinesis. The reported LVEF is 18 %. Impression: 1. There is no evidence of significant ischemia. 2. Estimated ejection fraction is 18%. Heart catheterization from April 2016 showed nonobstructive coronary artery disease with previously placed stent in the LAD patent with mild in-stent stenosis and moderate RCA stenosis, severe left anterior systolic dysfunction, and hypertension. Medical therapy was recommended. Ejection fraction was reported at 20%, left main as angiographically normal, LAD with less than 30% stenosis, LCx with less than 30% stenosis, and mid RCA with 50% stenosis. 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 Medical therapy was recommended. Labs LDL Cholesterol 57 mg/dL (0-130) 11/06/18 HDL Cholesterol 36 mg/dL (40-) L 11/06/18 Triglycerides 155 mg/dL (-199) 11/06/18 VLDL Cholesterol 31 mg/dL (5-40) 11/06/18 Diagnostics Electrocardiogram 11/06/18 Echocardiogram 12/15/18 Stress Test 11/06/18 Pacemaker Check 10/12/18 Chest X-Ray 12/08/18 Pulmonary Pulmonary Exercise Test 12/08/18 12/24/18 [id number] <Electronically signed by Migdalia Null> Date _ Migdalia MOURA I have re-examined the patient. There are no clinical changes since date of exam.
[2019-01-04 08:07] VITALS: BMI 26.7
--- NOTE | 2019-01-05 10:36 | CL.D_ITS ---
Patient Name: KACEY LOPEZ Study Date: 01/05/2019 Performing: Yefri Caceres MD Ht: 70.86 inches 180 cm : 1935 Wt: 191.8 lbs 87 kg Age: 83 Gender: male BSA: 2.07 PROCEDURE(S) PERFORMED [facility] CL[facility]ICAL [facility] AND INDICATIONS Indications: Cardiomyopathy, LV Dysfunction Heart Failure: NYHA Class: 3, Newly Diagnosed: No, Heart Failure Type: Systolic Stress/Imaging Date: 11/06/2018Stress Test with SPECT MPI: Negative Angina Classification Anginal Classification w/in 2 Weeks: No symptoms CAD Presentations: Other: shortness of breath CONCLUSIONS Elevated Left Ventricular End Diastolic Pressure [place] Multivessel CAD RECOMMENDATIONS Risk factor modification Medical therapy DESCRIPTION OF PROCEDURE The patient arrived to the procedure lab. The risks and benefits of the procedure as well as a full d escription of our services here and current unavailability of surgical backup were fully explained to the patient and/or their significant other prior to the catheterization. The Timeout was completed, verifying the correct patient and procedure. The patient's procedural site was prepped and draped in the usual fashion. Local anesthetic was given subcutaneously to right groin region with Lidocaine 2%. Using a modified Seldinger technique, arterial access was obtained via the right femoral artery, a 4 Fr sheath was inserted Left Coronary Artery selective angiography was performed in multiple views us ing a 4 Fr. JL5 catheter. Right Coronary Artery selective angiography was then performed in multiple views using a 4 Fr. 3DRC catheter. LV to AO pullback pressures were then recorded.The arterial sheath was pulled and manual compression applied until hemostasis is achieved. CORONARY ANGIOGRAPHY DOMINANCE: Right Dominant LEFT HEART ASSESSMENT Left Ventricular Ejection Fraction: Not assessed Elevated Left Ventricular End Diastolic Pressure LVEDP: 25 mmHg LEFT MAIN: distal: eccentric: 25 % Stenosis LEFT ANTERIOR DESCENDING ARTERY: PROX LAD: Previously placed stent is patent with minimal luminal irregularities MID LAD: Mild luminal irregularities, 25 % Stenosis DISTAL LAD: Mild luminal irregularities DIAGONAL 1: Proximal - Previously placed stent is patent with minimal luminal irregularities CIRCUMFLEX ARTERY: PROX CIRC: Previously placed stent is patent with minimal luminal irregularities OM 2: Mid - Mild luminal irregularities RIGHT CORONARY ARTERY: Mild luminal irregularities PROX RCA: diffuse: eccentric: 25 % Stenosis MID RCA: eccentric: 25 - 50 % Stenosis DISTAL RCA: diffuse: eccentric: 10 - 25 % Stenosis RT PDA: Proximal - Mild luminal irregularities COMPLICATIONS No Complications PROCEDURE MEDICATIONS Versed .5 mg IV Oxygen: 2 L/min via nasal cannula Baby Aspirin (81mg) 1 Tabs PO @ 01/05/2019 07:49:21 IV Fluids: .9 NaCl IV started @ 75 ml/hr 01/05/2019 07:57:00 SUMMARY OF HEMODYNAMIC DATA Time AIR REST ECG 07:52:51 AO 103/60 (78) SA 10:00:56 LV 118/10, 25 10:08:29 LV 117/10, 25 10:08:39 LVp 114/3, 25 10:09:21 AOp 120/62 (84) 10:09:26 RM AIR REST 10:31:20 Signed By Yefri Caceres MD On 01/05/2019 10:35:56 Yefri Caceres MD
== END ==
PROVIDERS: Family Provider Family Medicine; PCP Family Medicine; Referring Provider Internal Medicine Cardiovascular Disease; Visit Provider Internal Medicine Cardiovascular Disease
DX: I25.10 Atherosclerotic heart disease of native coronary artery without angina pectoris (principal); I12.9 Hypertensive chronic kidney disease with stage 1 through stage 4 chronic kidney disease, or unspecified chronic kidney disease; E11.22 Type 2 diabetes mellitus with diabetic chronic kidney disease; N18.3 Chronic kidney disease, stage 3 (moderate); I25.5 Ischemic cardiomyopathy; I42.0 Dilated cardiomyopathy; I47.2 Ventricular tachycardia; I70.219 Atherosclerosis of native arteries of extremities with intermittent claudication, unspecified extremity; E78.2 Mixed hyperlipidemia; E03.9 Hypothyroidism, unspecified; Z79.02 Long term (current) use of antithrombotics/antiplatelets; Z79.82 Long term (current) use of aspirin; Z79.52 Long term (current) use of systemic steroids; Z79.899 Other long term (current) drug therapy; Z95.5 Presence of coronary angioplasty implant and graft; Z87.891 Personal history of nicotine dependence; Z95.810 Presence of automatic (implantable) cardiac defibrillator
CPT/HCPCS: 36415; 80048; 85027; 85610; 85730; 93454; 99152; 99153; J7040; Q9967; C1769; C1894

== ENCOUNTER 2019-02-08 09:34 | Inpatient (IN) | payer MEDICARE, OTHER, SELFPAY ==
[2019-01-04 08:07] VITALS: BMI 26.7
[2019-02-08] VITALS (12 sets, daily range): BP systolic 93–126; BP diastolic 60–78; PULSE 65–98; RESP 16–20; TEMP 36.7–37.1; O2SAT 90–98; BMI 25.9; BMI 25.7
--- NOTE | 2019-02-08 10:17 | CT_ITS ---
STUDY: CT BRAIN WITHOUT CONTRAST REASON FOR EXAM: Male, 83 years old. Weakness following a recent fall. RADIATION DOSAGE (If Supplied By Facility): CTDIvol = ( 44.99 ) mGy, DLP = ( 812.98 ) mGycm TECHNIQUE: Transaxial CT imaging of the brain was performed without administration of intravenous contrast material. Individualized dose optimization techniques were used for this CT. COMPARISON: No relevant priors. FINDINGS: Normal soft tissue structures. Normal calvarium. There is mild cerebral atrophy with widening of the extra-axial spaces and ventricular dilatation. There are areas of decreased attenuation within the white matter tracts of the supratentorial brain, consistent with microvascular disease changes. Normal basal ganglia and thalami. Normal brainstem. Normal cerebellum. There is no intracranial hemorrhage. There are no findings of an acute ischemic infarction. Partial opacification of the ethmoid sinuses. Mucosal thickening along the inferior aspect of the right maxillary sinus. CT/Brain/Head without Contrast IMPRESSION: Chronic involutional changes of the brain. Electronically Signed: Pablito Lloyd, at 11:26 EST , Service support ,
--- NOTE | 2019-02-08 10:18 | RAD_ITS ---
STUDY: X-RAY CHEST REASON FOR EXAM: Male, 83 years old. Increasing shortness of breath. TECHNIQUE: PA and lateral views of the chest. COMPARISON: Comparison is made with prior study dated December 08, 2018. FINDINGS: Hyperinflation. Scattered calcified granulomas. No acute abnormality is seen. There is no demonstrated pleural abnormality. There is moderate cardiac enlargement. A left-sided ICD is seen. Normal mediastinum and [place]. Normal visualized pulmonary arteries. There is atherosclerotic calcification of the aortic arch with tortuosity. There are diffuse degenerative changes of the visualized thoracic spine. Normal visualized ribs, clavicles, and shoulders. There is no demonstrated abnormality of the visualized soft tissue structures of the upper abdomen. RAD/Chest PA and Lateral IMPRESSION: Cardiomegaly. No acute abnormality is seen. Electronically Signed: Pablito Lloyd, at 11:19 EST , Service support ,
--- NOTE | 2019-02-08 10:18 | EKG12_ITS ---
Test Reason : SOB Blood Pressure : / mmHG Vent. Rate : 077 BPM Atrial Rate : 077 BPM P-R Int : 204 ms QRS Dur : 128 ms QT Int : 458 ms P-R-T Axes : 036 -32 120 degrees QTc Int : 518 ms Normal sinus rhythm Left axis deviation Left ventricular hypertrophy with QRS widening and repolarization abnormality Abnormal ECG Confirmed by BEATRIZ GALLARDO, TRISTAN ([id number]), editor continuity and script SHE BURLESON ([id number]) on 02/10/2019 11:59:08 AM Referred By: PEDRO Confirmed By:TRISTAN HENDERSON MD
--- NOTE | 2019-02-08 10:23 | ED.DCSUM_ITS ---
History of Present Illness Chief Complaint: Shortness of Breath Informant: Patient Associated Symptoms: Cough Chest Pain: Pleuritic Narrative: Patient is an 83-year-old male with history of cardiomyopathy, CHF, hypertension, BPH, diabetes mellitus, rheumatoid arthritis (on prednisone and Plaquenil) as well as gout, KENAN and COPD presenting for worsening shortness of breath and weakness. Patient states he has been having worsening respiratory symptoms for the past few weeks. He states he has worsening dyspnea on exertion and cough. He is been using his home nebulizer as well as his CPAP as he is supposed to. He notes over the past 4 days he is also been dizzy whenever he tries to move or sometimes even at rest. He states he has to be very careful when he tries to stand up. He denies any swelling of his legs. He has had increased frequency of urination. He feels that he is emptying his bladder all the way but then will have to go pee right away. He denies any associated dysuria. Denies any nausea, vomiting or abdominal pain. He denies chest pain but does note he has pain when he coughs. He does not have an associated cough. Patient also notes that he fell out of his 4 gordon about a week ago and hit his head. He did not have loss of consciousness. Past Medical History - Allergies and Home Meds Allergies/Adverse Reactions: Allergies atorvastatin [From Lipitor] Adverse Reaction (Verified 02/08/19 09:35) myalgia leflunomide [From Arava] Adverse Reaction (Verified 02/08/19 09:35) PROBLEMS WITH MY FEET simvastatin [From Zocor] Adverse Reaction (Verified 02/08/19 09:35) myalgia Past Medical History: - - COPD, heart failure, cardiomyopathy, rheumatoid arthritis, gout, diabetes mellitus, BPH Surgical History: angioplasty, appendectomy, - - AICD, appendectomy, PCI. Lives: With Family Smoking Status: Former smoker - Family History Paternal Family History: Family History (Last Reviewed 12/24/18 @ 15:39 by MARTELL Patel) Mother Alzheimers disease Brother Cancer Brother Hypertension Brother CAD (coronary artery disease) Sister CAD (coronary artery disease) Sister Breast cancer Family History: Reports: Pulmonary Disease - emphysema, s/p lobectomy Maternal Family History: Family History (Last Reviewed 12/24/18 @ 15:39 by MARTELL Patel) Mother Alzheimers disease Brother Cancer Brother Hypertension Brother CAD (coronary artery disease) Sister CAD (coronary artery disease) Sister Breast cancer Family History: Reports: Dementia, Heart Disease Sibling Family History: Family History (Last Reviewed 12/24/18 @ 15:39 by MARTELL Patel) Mother Alzheimers disease Brother Cancer Brother Hypertension Brother CAD (coronary artery disease) Sister CAD (coronary artery disease) Sister Breast cancer Family History: Reports: Heart Disease Offspring Family History: Family History (Last Reviewed 12/24/18 @ 15:39 by MARTELL Patel) Mother Alzheimers disease Brother Cancer Brother Hypertension Brother CAD (coronary artery disease) Sister CAD (coronary artery disease) Sister Breast cancer Family History: Reports: No pertinent history Review of Systems General: Reports: Malaise, - - Lightheaded. Denies: Chills, Fever, Sweats Eyes: Denies: Visual changes - bilaterally, Diplopia ENT: Denies: Rhinorrhea, Sore throat Cardiovascular: Denies: Chest pain, Palpitations Respiratory: Reports: Dyspnea, Cough, Sputum - Minimal amounts, Dyspnea on exertion Gastrointestinal: Denies: Abdominal pain, Nausea, Vomiting, Diarrhea, Melena, Hematochezia Genitourinary: Denies: Dysuria, Hematuria, Frequency Musculoskeletal: Denies: Back pain, Extremity Pain Skin: Denies: Rash, Wounds Neurological: Denies: Headache, Weakness, Numbness Physical Exam Vital Signs/Narrative: Vital Signs Temp Pulse Resp BP Pulse Ox 02/08/19 09:35 98.5 F 65 19 H 93/60 98 Inital Vital Signs reviewed: Yes General: Well nourished, Well developed, No Acute Distress Head: Normocephalic, Atraumatic Eyes: Perrl, EOMI ENT: Moist mucous membranes, No rhinorrhea, - - Left tympanic membrane is clear, unable to visualize right panic membrane secondary to cerumen impaction Neck: Supple, Nontender, No JVD Cardiovascular: Regular rate, Regular rhythm, No murmurs Respiratory: No distress, Chest nontender, Rhonchi - Bilaterally, most pronounced at the left base Abdomen: Soft, Nontender, Nondistended, Normal bowel sounds Back: Nontender, Normal Inspection Extremities: Nontender, No edema Skin: Normal color, No rash, - - Significant ecchymosis in various stages of healing on upper extremities Neurological: Alert, Oriented x3, Cranial nerves II-XII grossly intact, Normal Strength, Normal Sensation Psychological: Normal affect, Normal Mood Diagnostic/Tx/Re-eval Chest X-Ray - ED: 2 View, Read by ED Physician, Read by Radiologist, No Acute Disease Clinical Impression(s) from Imaging Studies Brain CT 02/08/19 10:17 IMPRESSION: Chronic involutional changes of the brain. Electronically Signed: Pablito Prema, at 11:26 EST , Service support , Chest X-Ray 02/08/19 10:18 IMPRESSION: Cardiomegaly. No acute abnormality is seen. Electronically Signed: Pablito Prema, at 11:19 EST , Service support , Laboratory Data 02/08/19 02/08/19 02/08/19 10:45 10:45 10:45 WBC 5.4 RBC 4.37 L Hgb 13.2 Hct 42.1 MCV 96.3 H MCH 30.2 MCHC 31.4 L RDW Std Deviation 57.1 H RDW Coeff of [place] 16.1 H Plt Count 134 L MPV 9.2 Immature Gran % (Auto) 0.600 Neut % (Auto) 69.7 Lymph % (Auto) 14.0 L [place] % (Auto) 13.2 H Eos % (Auto) 1.9 Baso % (Auto) 0.6 Absolute Neuts (auto) 3.7 Absolute Lymphs (auto) 0.75 L Nucleated RBC % 0 PT 15.2 H INR 1.2 Sodium 140 Potassium 3.8 Chloride 103 Carbon Dioxide 33.0 H Anion Gap 4 L BUN 36 H Creatinine 2.39 H Estim Creat Clear Calc 24.94 Est GFR (MDRD) Af Amer 34 L Est GFR (MDRD) Non-Af 28 L BUN/Creatinine Ratio 15.1 Glucose 97 Calcium 8.9 Magnesium Troponin I 0.017 B-Natriuretic Peptide Urine Color Urine Clarity Urine pH Ur Specific [place] Urine Protein Urine Glucose (UA) Urine Ketones Urine Occult Blood Urine Nitrite Urine Bilirubin Urine Urobilinogen Ur Leukocyte Esterase Urine RBC Urine WBC Ur Squamous Epith Cells Urine Bacteria Urine Mucus 02/08/19 02/08/19 02/08/19 10:45 10:45 13:50 WBC RBC Hgb Hct MCV MCH MCHC RDW Std Deviation RDW Coeff of [place] Plt Count MPV Immature Gran % (Auto) Neut % (Auto) Lymph % (Auto) [place] % (Auto) Eos % (Auto) Baso % (Auto) Absolute Neuts (auto) Absolute Lymphs (auto) Nucleated RBC % PT INR Sodium Potassium Chloride Carbon Dioxide Anion Gap BUN Creatinine Estim Creat Clear Calc Est GFR (MDRD) Af Amer Est GFR (MDRD) Non-Af BUN/Creatinine Ratio Glucose Calcium Magnesium 2.2 Troponin I B-Natriuretic Peptide 2416.1 H Urine Color Yellow Urine Clarity Sl. Cloudy Urine pH 7.0 Ur Specific [place] 1.005 Urine Protein 15 H Urine Glucose (UA) Normal Urine Ketones Negative Urine Occult Blood Negative Urine Nitrite Negative Urine Bilirubin Negative Urine Urobilinogen 1 H Ur Leukocyte Esterase Negative Urine RBC 0 SEEN Urine WBC 0 SEEN Ur Squamous Epith Cells 0-5 SEEN Urine Bacteria 1+ Urine Mucus 0 SEEN - Rhythm Strip Rhythm Strip: Sinus Rhythm Rate: 77 Ectopy: None - EKG Initial EKG Interpretation: Sinus Rhythm, - - Normal sinus rhythm at a rate of 77PR interval 204Left axis deviationQRS 128QTc 518T wave inversions and lateral leadsNo change compared to prior EKG on 11/06/2018 - Medical Decision Making Patient is evaluated for shortness of breath, cough and lightheadedness. At rest patient is 90% on room air. He does not wear oxygen at baseline. He does not have JVD, crackles or lower extremity edema and his chest x-ray looks grossly unchanged from prior. His proBNP is 2,500. Patient have a component of CHF however this also could be viral as the cause of his symptoms. Troponin is normal. Creatinine is mildly elevated but near his baseline. He does not have a leukocytosis or acute anemia. As patient did have a recent fall and head injury I did do a head CT which did not show any acute intracranial process. CXR does not show infiltrate however patient is at increased risk infections he is chronically on prednisone and Plaquenil. I did ambulate the patient and he dropped to 88% on room air with exertion. During orthostatics he was symptomatic but not orthostatic. Patient will be admitted for further monitoring. It is possible to be slightly fluid overloaded and he is given a dose of IV Lasix in the emergency room. He is agreeable with this plan and stable for the general medical floor at time of disposition. ED Disposition - Plan for ED Patient: Disposition: Acute Care Hospital [facility] Diagnosis: Hypoxia, Acute on chronic combined systolic and diastolic heart failure
[2019-02-08] MEDS: Ipratropium/Albuterol Sulfate 3 ML AMPUL.NEB INHALATION ×3 (10:31→22:17)
[2019-02-08 10:54] LABS: Absolute Lymphocyte Count 0.75 X10^3/uL (0.83-4.51); Absolute Neutrophil Count 3.7 X10^3/uL (2.0-7.7); Basophil# 0.03 X10^3/uL; Basophil% 0.6 % (0-1); Eosinophils% 1.9 % (0-5); Hematocrit 42.1 % (40-54); Hemoglobin 13.2 g/dL (13.0-16.5); Lymphocyte # 0.75 X10^3/ul (4.0); Mean Corp Hgb Conc 31.4 g/dL (32-36); Mean Corpuscular Hgb 30.2 pg (27.0-32.0); Mean Corpuscular Volume 96.3 fL (80-94); Mean Platelet Vol. 9.2 fl (6.2-12.0); Monocyte# 0.71 X10^3/uL; Monocyte% 13.2 % (0-10); NRBC Flagged by Analyzer 0 % (0-5); Neutrophil # 3.74 X10^3/uL (2.7-7.7); Neutrophil % 69.7 % (47-70); Platelet Count 134 K/mm3 (150-450); RBC Distribution Width CV 16.1 % (11.6-14.6); RBC Distribution Width SD 57.1 fl (35.1-43.9); Red Blood Count 4.37 M/mm3 (4.6-6.2); White Blood Count 5.4 K/mm3 (4.4-11.0)
[2019-02-08 11:06] LABS: International Normalized Ratio 1.2; Prothrombin Time (Protime)PT. 15.2 SECONDS (11.7-14.9)
[2019-02-08 11:26] LABS: Anion Gap 4 (5-15); BUN 36 mg/dL (7-18); BUN/Creat Ratio 15.1 RATIO (10-20); Calcium,Total 8.9 mg/dL (8.5-10.1); Chloride 103 mmol/L (98-107); Creatinine, Serum 2.39 mg/dL (0.70-1.30); EST Glomerular Filtration Rate 28 mL/min (>60); Est Glom Filt Rate - Afr Amer 34 mL/min (>60); Estimated Creatinine Clearance 24.94 ml/min; Glucose 97 mg/dL (74-106); Potassium 3.8 mmol/L (3.5-5.1); Sodium Level 140 mmol/L (136-145)
[2019-02-08 13:56] LABS: Mucous, Urine 0 SEEN /hpf (<or=2+); Red Blood Cells-Urine 0 SEEN /hpf (0-5); White Blood Cells 0 SEEN /hpf (0-5)
[2019-02-08 13:58] LABS: Color, Urine Yellow (Yellow); Glucose, Dipstick Normal (Normal); Ketone-Dipstick Negative (Negative); Leukocyte Esterase-Dipstick Negative /ul (Negative); Nitrite-Dipstick Negative (Negative); Occult Blood-Urine Negative /ul (Negative); Protein-Dipstick 15 mg/dl (Negative); Specific Gravity, Urine 1.005 (1.002-1.030); Urine Bilirubin Dipstick Negative (Negative); Urine Clarity Sl. Cloudy (Clear); Urine Urobilinogen 1 mg/dl (Normal)
[2019-02-08 14:06] LABS: Bacteria 1+ /hpf (None Seen); Squamous Epithelial Cells - UA 0-5 SEEN /hpf (0-5)
--- NOTE | 2019-02-08 14:34 | NURSING ---
127 DENICE HYPOXIA, CHF
[2019-02-08] MEDS: Furosemide 40 MG/4 ML Vial IV (14:45)
[2019-02-08] MEDS: Ondansetron 4 MG/2 ML Vial IV (14:45)
--- NOTE | 2019-02-08 15:19 | PCM.HP.STD ---
Problem List (1) Abnormal echocardiogram Status: Chronic (2) Chest pain Status: Acute Qualifiers: Chest pain type: chest pain on breathing Qualified Code(s): R07.1 - Chest pain on breathing; R07.81 - Pleurodynia (3) Mixed hyperlipidemia Status: Chronic (4) Presence of stent in coronary artery Status: Chronic Comment: PTCA and stenting of the LAD and diagonal 09/23/2006 (5) Atherosclerotic heart disease of [place] coronary artery without angina pectoris Status: Chronic (6) Essential hypertension Status: Chronic (7) Mixed sleep apnea Status: Chronic Comment: BiPAP 17/11 mm of water with a backup rate of 12 (8) Hypersomnolence disorder Status: Chronic (9) Dilated cardiomyopathy Status: Chronic (10) Paroxysmal ventricular tachycardia Status: Chronic (11) Syncope and collapse Status: Chronic (12) Abnormal result of cardiovascular function study, unspecified Status: Chronic (13) History of implantable cardioverter-defibrillator (ICD) placement Status: Chronic Comment: Implant: 06/2000; Generator change: 03/17/2008 (14) Hypothyroidism, iatrogenic Status: Chronic (15) Atherosclerosis of [place] arteries of extremity with intermittent claudication Status: Chronic Qualifiers: Peripheral atherosclerosis location: unspecified extremity Qualified Code(s): I70.219 - Atherosclerosis of [place] arteries of extremities with intermittent claudication, unspecified extremity (16) Dyspnea Status: Chronic Qualifiers: Dyspnea type: dyspnea on exertion Qualified Code(s): R06.09 - Other forms of dyspnea (17) Chest pain Status: Acute Qualifiers: Chest pain type: unspecified Qualified Code(s): R07.9 - Chest pain, unspecified (18) Chronic renal failure, stage 3 (moderate) Status: Chronic (19) Diabetes mellitus type 2 in nonobese Status: Chronic (20) Sustained ventricular tachycardia Status: Chronic (21) Hypothyroidism Status: Chronic Qualifiers: Hypothyroidism type: unspecified Qualified Code(s): E03.9 - Hypothyroidism, unspecified (22) Cardiomyopathy Status: Chronic Qualifiers: Cardiomyopathy type: unspecified Qualified Code(s): I42.9 - Cardiomyopathy, unspecified (23) Acute on chronic combined systolic and diastolic heart failure Status: Chronic History of Present Illness Date of Admission: 02/08/19 Chief Complaint: Shortness of breath progressive worsening for few weeks The patient is a 83 year old M with multiple comorbidities including coronary artery disease, AICD in 2000, peripheral arterial disease, diabetes mellitus came to ER with progressive worsening of shortness of breath for few weeks. Patient also has chronic cough from COPD but it has gotten worse in last few weeks and admits bringing up brownish phlegm. Denies fever or chills. Complains of anterior bilateral chest pain from right to left predominantly on coughing. Patient saw PCP few weeks ago and is on Lasix 40 mg daily. Patient also has URI symptoms of nasal congestion, sinus congestion but denies sore throat. In ED, no fever or chills. Pulse ox 92% on room air. Common ER labs shows elevated BNP 2416, bicarb 33, anion gap 4, BUN/creatinine 36/2.39. No leukocytosis. Mild thrombocytopenia 134,000 at baseline. Last platelet count was 142,000 in November 22 when he was admitted for chest pain and ACS was ruled out. Chest x-ray shows cardiomegaly with no acute abnormality. EKG normal sinus rhythm, LAD, LVH with QRS 128 ms with repolarization abnormality. No change from previous EKG of October 2018. 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) Abnormal echocardiogram (Chronic) Mixed hyperlipidemia (Chronic) Presence of stent in coronary artery (Chronic ~09/23/06) PTCA and stenting of the LAD and diagonal 09/23/2006 Atherosclerotic heart disease of [place] coronary artery without angina pectoris (Chronic) Essential hypertension (Chronic) Mixed sleep apnea (Chronic) BiPAP 17/11 mm of water with a backup rate of 12 Hypersomnolence disorder (Chronic) Dilated cardiomyopathy (Chronic) Paroxysmal ventricular tachycardia (Chronic) Syncope and collapse (Chronic) Abnormal result of cardiovascular function study, unspecified (Chronic) 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) Implant: 06/2000; Generator change: 03/17/2008 Hypothyroidism, iatrogenic (Chronic) Atherosclerosis of [place] arteries of extremity with intermittent claudication (Chronic) Dyspnea (Chronic) Chronic renal failure, stage 3 (moderate) (Chronic) Diabetes mellitus type 2 in nonobese (Chronic) Sustained ventricular tachycardia (Chronic) Hypothyroidism (Chronic) Cardiomyopathy (Chronic) Medical History: Medical History (Last Updated 11/12/19 @ 16:37 by Migdalia Fisher) Mixed hyperlipidemia (Chronic) E78.2 Presence of stent in coronary artery (Chronic) Onset Date: ~09/23/06 Z95.5 PTCA and stenting of the LAD and diagonal 09/23/2006 Atherosclerotic heart disease of [place] coronary artery without angina pectoris (Chronic) I25.10 Essential hypertension (Chronic) I10 Dilated cardiomyopathy (Chronic) I42.0 Paroxysmal ventricular tachycardia (Chronic) I47.2 Syncope and collapse (Chronic) R55 Abnormal result of cardiovascular function study, unspecified (Chronic) R94.30 Hypothyroidism, iatrogenic (Chronic) E03.2 Atherosclerosis of [place] arteries of extremity with intermittent claudication (Chronic) I70.219 Dyspnea (Chronic) R06.00 Chest pain (Acute) R07.9 Chronic renal failure, stage 3 (moderate) (Chronic) N18.3 Diabetes mellitus type 2 in nonobese (Chronic) E11.9 Sustained ventricular tachycardia (Chronic) I47.2 Hypothyroidism (Chronic) E03.9 Cardiomyopathy (Chronic) I42.9 Fatigue (Resolved) R53.83 History of left heart catheterization (LHC) Onset Date: ~01/05/19 Z98.890 LEFT MAIN: distal: eccentric: 25 % Stenosis; LEFT ANTERIOR DESCENDING ARTERY: PROX LAD: Previously placed stent is patent with minimal luminal irregularities, MID LAD: Mild luminal irregularities, 25 % Stenosis, DISTAL LAD: Mild luminal irregularities; DIAGONAL 1: Proximal - Previously placed stent is patent with minimal luminal irregularities; CIRCUMFLEX ARTERY: PROX CIRC: Previously placed stent is patent with minimal luminal irregularities OM 2: Mid - Mild luminal irregularities, RIGHT CORONARY ARTERY: Mild luminal irregularities, PROX RCA: diffuse: eccentric: 25 % Stenosis, MID RCA: eccentric: 25 - 50 % Stenosis, DISTAL RCA: diffuse: eccentric: 10 - 25 % Stenosis; RT PDA: Proximal - Mild luminal irregularities per cath 01/05/19 Myalgia (Resolved) M79.1 Allergies atorvastatin [From Lipitor] Adverse Reaction (Verified 02/08/19 09:35) myalgia leflunomide [From Arava] Adverse Reaction (Verified 02/08/19 09:35) PROBLEMS WITH MY FEET simvastatin [From Zocor] Adverse Reaction (Verified 02/08/19 09:35) myalgia Home Medications: Ambulatory Orders Medication Instructions Recorded Aspirin 325 mg PO DAILY@0800 05/22/16 Colchicine 0.6 mg PO DAILY 05/22/16 Finasteride [Proscar] 5 mg PO DAILY 05/22/16 Levothyroxine [Synthroid] 50 mcg PO DAILY 05/22/16 Tamsulosin HCl [Flomax] 0.4 mg PO DAILY 05/22/16 hydroxychloroquine 200 mg tablet 200 mg PO DAILY tab 11/10/17 tramadol 50 mg tablet 50 mg PO QHS PRN PRN tab 11/10/17 albuterol sulfate 2.5 mg/3 mL 2.5 mg INHALATION Q4H PRN 03/26/18 (0.083 %) solution for nebulization meclizine 25 mg chewable tablet 25 mg PO TID PRN tab 03/26/18 clopidogrel 75 mg tablet 75 mg PO DAILY #90 tab 07/21/18 pravastatin 20 mg tablet 20 mg PO QODAY #45 tab 11/10/18 amiodarone 200 mg tablet 200 mg PO DAILY #90 tab 11/16/18 carvedilol 6.25 mg tablet 6.25 mg PO BID #180 tab 11/16/18 nitroglycerin 0.4 mg sublingual 0.4 mg SUBLINGUAL Q5-15M PRN #25 11/16/18 tablet tab Fexofenadine HCl 180 mg PO DAILY 02/08/19 Furosemide 40 mg PO DAILY 02/08/19 Prednisone 5 mg PO DAILY 02/08/19 Surgical History: Surgical History (Last Reviewed 12/24/18 @ 15:39 by MARTELL Patel) 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) Z95.810 Implant: 06/2000; Generator change: 03/17/2008 Presence of coronary angioplasty implant and graft Onset Date: ~09/23/06 Z95.5 PTCA and stenting of the LAD and diagonal 09/23/2006 History of appendectomy Z98.890, Z90.49 Surgical History: angioplasty, appendectomy, - - AICD, appendectomy, PCI. Psychiatric History: No pertinent psych hx Lives: With Family Smoking Status: Former smoker - *Family History Paternal Family History: Family History (Last Reviewed 12/24/18 @ 15:39 by MARTELL Patel) Mother Alzheimers disease Brother Cancer Brother Hypertension Brother CAD (coronary artery disease) Sister CAD (coronary artery disease) Sister Breast cancer History Items: Pulmonary Disease - emphysema, s/p lobectomy Maternal Family History: Family History (Last Reviewed 12/24/18 @ 15:39 by MARTELL Patel) Mother Alzheimers disease Brother Cancer Brother Hypertension Brother CAD (coronary artery disease) Sister CAD (coronary artery disease) Sister Breast cancer History Items: Dementia, Heart Disease Sibling Family History: Family History (Last Reviewed 12/24/18 @ 15:39 by MARTELL Patel) Mother Alzheimers disease Brother Cancer Brother Hypertension Brother CAD (coronary artery disease) Sister CAD (coronary artery disease) Sister Breast cancer History Items: Heart Disease Offspring Family History: Family History (Last Reviewed 12/24/18 @ 15:39 by MRATELL Patel) Mother Alzheimers disease Brother Cancer Brother Hypertension Brother CAD (coronary artery disease) Sister CAD (coronary artery disease) Sister Breast cancer History Items: No pertinent history Review of Systems Constitutional: Reports: Malaise, Weakness, Weight Change - As per daughter, he also lost weight., Fatigue. Denies: Chills, Fever HEENT: Reports: Difficulty Hearing Cardiovascular: Reports: Chest Pain. Denies: Palpitations Respiratory: Reports: Cough, Pleuritic Pain, Shortness of Breath, Shortness of breath upon exertion, Sputum production, Wheezing. Denies: Shortness of breath at rest Gastrointestinal: Denies: Abdominal Pain, Constipation, Diarrhea, Nausea, Vomiting Genitourinary: Reports: Frequency, Hesitancy - BPH. Denies: Dysuria, Hematuria Musculoskeletal: Reports: Joint Pain. Denies: Joint Tenderness Skin: Denies: Rash, Wounds Neurological: Reports: Balance problems. Denies: Change in Speech Psychiatric: Denies: Anxiety, Depression, Homicidal Ideations, Suicidal Ideations VTE Information - Inpt Only VTE Present on Admission: No VTE Mechan Device Prophylaxis: None VTE Pharm Prophylaxis ordered?: Yes - Physical Exam Vitals/I&O's: Vital Signs Temp Pulse Resp BP Pulse Ox 98.5 F 89 16 115/78 90 02/08/19 09:35 02/08/19 13:57 02/08/19 10:31 02/08/19 13:57 02/08/19 13:56 Oxygen Delivery Method Room Air Weight: 184 lb 1.376 oz Body Mass Index (BMI) 25.7 General: Alert, Oriented x3, Cooperative HEENT: Atraumatic, PERRLA, EOMI, Normocephalic Oral: Dry Mucosa Neck: Supple, No JVD, Negative Carotid Bruits Lungs: Clear to auscultation, No rhonchi, No wheeze, No rales, Diminished - Entry is diminished in bilateral lung bases. Cardiovascular: Regular rate, Regular Rhythm, Normal S1, Normal S2, No murmurs Abdomen: Bowel Sounds Present, Soft, Non Tender, Non-Distended Extremities: No edema, Capillary Refill Less than 3 Seconds Skin: No rashes, No breakdown Musculoskeletal: No Tenderness to Palpation of Joints or Extremities, Arthritic Changes Neurological: Cranial nerves II-XII grossly intact, Deep Tendon Reflexes 2+/4 and Symmetrical, Neuro grossly intact Psych/Mental Status: Normal Affect, Appropriate Laboratory Results 02/08/19 10:45: WBC 5.4, RBC 4.37 L, Hgb 13.2, Hct 42.1, MCV 96.3 H, MCH 30.2, MCHC 31.4 L, RDW Std Deviation 57.1 H, RDW Coeff of [place] 16.1 H, Plt Count 134 L, MPV 9.2, Immature Gran % (Auto) 0.600, Neut % (Auto) 69.7, Lymph % (Auto) 14.0 L, [place] % (Auto) 13.2 H, Eos % (Auto) 1.9, Baso % (Auto) 0.6, Absolute Neuts (auto) 3.7, Absolute Lymphs (auto) 0.75 L, Nucleated RBC % 0 02/08/19 10:45: PT 15.2 H, INR 1.2 02/08/19 10:45: Sodium 140, Potassium 3.8, Chloride 103, Carbon Dioxide 33.0 H, Anion Gap 4 L, BUN 36 H, Creatinine 2.39 H, Estim Creat Clear Calc 24.94, Est GFR (MDRD) Af Amer 34 L, Est GFR (MDRD) Non-Af 28 L, BUN/Creatinine Ratio 15.1, Glucose 97, Calcium 8.9, Troponin I 0.017 02/08/19 10:45: B-Natriuretic Peptide 2416.1 H 02/08/19 13:50: Urine Color Yellow, Urine Clarity Sl. Cloudy, Urine pH 7.0, Ur Specific [place] 1.005, Urine Protein 15 H, Urine Glucose (UA) Normal, Urine Ketones Negative, Urine Occult Blood Negative, Urine Nitrite Negative, Urine Bilirubin Negative, Urine Urobilinogen 1 H, Ur Leukocyte Esterase Negative, Urine RBC 0 SEEN, Urine WBC 0 SEEN, Ur Squamous Epith Cells 0-5 SEEN, Urine Bacteria 1+, Urine Mucus 0 SEEN Current Medications Sodium Chloride () 250 mls @ 15 mls/hr IV .[id number] PRN PRN Reason: Saline Flush Sodium Chloride () 10 - 40 ml IV UD PRN PRN Reason: SALINE FLUSH Assessment/Plan All Active Problems (Last Updated 01/05/19 @ 16:37 by Migdalia Fisher) Chest pain (Acute) Chest pain (Acute) Fatigue (Resolved) Myalgia (Resolved) The patient is a 83 year old M with multiple comorbidities including coronary artery disease, AICD in 2000, peripheral arterial disease, diabetes mellitus came to ER with progressive worsening of shortness of breath for few weeks. Patient also has chronic cough from COPD but it has gotten worse in last few weeks and admits bringing up brownish phlegm. Denies fever or chills. Complains of anterior bilateral chest pain from right to left predominantly on coughing. Patient saw PCP few weeks ago and is on Lasix 40 mg daily. Patient also has URI symptoms of nasal congestion, sinus congestion but denies sore throat. In ED, no fever or chills. Pulse ox 92% on room air. Common ER labs shows elevated BNP 2416, bicarb 33, anion gap 4, BUN/creatinine 36/2.39. No leukocytosis. Mild thrombocytopenia 134,000 at baseline. Last platelet count was 142,000 in November 22 when he was admitted for chest pain and ACS was ruled out. Chest x-ray shows cardiomegaly with no acute abnormality. EKG normal sinus rhythm, LAD, LVH with QRS 128 ms with repolarization abnormality. No change from previous EKG of October 2018. 1. Acute respiratory insufficiency possibly related to acute bronchitis/ chronic combined heart failure: Patient pulse ox was 90% on room air and is objectively short of breath as per ER physician. Chest CT scan is ordered at chest x-ray did not show obvious pulmonary congestion or pneumonic consolidation to account for respiratory insufficiency. 2. Possible acute bronchitis with history of COPD: Patient quit smoking about 30 years ago. On bronchodilator. Respiratory panel is ordered. Sputum culture and urinary antigens ordered. 3. Possible acute on chronic combined biventricular heart failure status post AICD and mild pulmonary hypertension: Patient had echo in November 2018 and reported as severe segmental systolic dysfunction with EF 15%. Mild global right ventricular systolic dysfunction, LA moderately enlarged. Right atrium mildly enlarged. RVSP 41 mmHg. Patient has AICD which was interrogated recently in December 2018. Patient also had cardiac cath in 12/2018 which reported as mild coronary artery disease with right dominance. Previous placed stent in proximal LAD patent. BNP is elevated but chest x-ray and no obvious leg edema or crackles. Continue baseline diuretic cardiac medication. 4. CKD stage IV: Patient last BUN/creatinine 39/2.21 that is his baseline. Currently 36/2.39. 5. CAD status post PCI patient had last heart cath as mentioned above. Mild coronary artery disease 6. PVT/SVT status post AICD 7. Type 2 diabetes mellitus: Accu-Chek is seen just cover with Hem-o-johann sliding scale. 8. Hypertension, dyslipidemia, hypothyroidism, inflammatory arthritis and COPD and obstructive sleep apnea: Patient has CPAP at home. Patient also has nebulizer machine at home. 9. BPH: Patient has learned sick symptoms including increased frequency and hesitancy and incomplete emptying of bladder. Patient has appointment with urologist on coming , on 02/11/2019. Continue Flomax. Laboratory Results 02/08/19 10:45: WBC 5.4, RBC 4.37 L, Hgb 13.2, Hct 42.1, MCV 96.3 H, MCH 30.2, MCHC 31.4 L, RDW Std Deviation 57.1 H, RDW Coeff of [place] 16.1 H, Plt Count 134 L, MPV 9.2, Immature Gran % (Auto) 0.600, Neut % (Auto) 69.7, Lymph % (Auto) 14.0 L, [place] % (Auto) 13.2 H, Eos % (Auto) 1.9, Baso % (Auto) 0.6, Absolute Neuts (auto) 3.7, Absolute Lymphs (auto) 0.75 L, Nucleated RBC % 0 02/08/19 10:45: PT 15.2 H, INR 1.2 02/08/19 10:45: Sodium 140, Potassium 3.8, Chloride 103, Carbon Dioxide 33.0 H, Anion Gap 4 L, BUN 36 H, Creatinine 2.39 H, Estim Creat Clear Calc 24.94, Est GFR (MDRD) Af Amer 34 L, Est GFR (MDRD) Non-Af 28 L, BUN/Creatinine Ratio 15.1, Glucose 97, Calcium 8.9, Troponin I 0.017 02/08/19 10:45: B-Natriuretic Peptide 2416.1 H 02/08/19 13:50: Urine Color Yellow, Urine Clarity Sl. Cloudy, Urine pH 7.0, Ur Specific [place] 1.005, Urine Protein 15 H, Urine Glucose (UA) Normal, Urine Ketones Negative, Urine Occult Blood Negative, Urine Nitrite Negative, Urine Bilirubin Negative, Urine Urobilinogen 1 H, Ur Leukocyte Esterase Negative, Urine RBC 0 SEEN, Urine WBC 0 SEEN, Ur Squamous Epith Cells 0-5 SEEN, Urine Bacteria 1+, Urine Mucus 0 SEEN Clinical Impression(s) from Imaging Studies Brain CT 02/08/19 10:17 IMPRESSION: Chronic involutional changes of the brain. Chest X-Ray 02/08/19 10:18 IMPRESSION: Cardiomegaly. No acute abnormality is seen. Code Visit Inpatient E&M: 73401 Init Hosp L3
--- NOTE | 2019-02-08 16:20 | CT_ITS ---
STUDY: CT CHEST WITHOUT CONTRAST REASON FOR EXAM: Male, 83 years old. Abnormal chest x-ray RADIATION DOSAGE (If Supplied By Facility): CTDIvol = ( 15.22 ) mGy, DLP = ( 566.08 ) mGycm TECHNIQUE: Transaxial imaging was performed without the administration of intravenous contrast material. Individualized dose optimization techniques were used for this CT. COMPARISON: None. FINDINGS: Single lead cardiac conduction device is identified with lead extending to the right ventricle. Subpleural reticulation and groundglass opacities of the bilateral lower lobes and posterior right middle lobe. No bronchiectasis or honeycombing. No airspace consolidation or cavitating process. There is a granuloma in the medial right lower lobe. There is no demonstrated pleural abnormality. The heart is moderately enlarged. There are calcifications of the coronary arteries. Normal mediastinum. Normal hilar regions. There is prominence of the pulmonary hilar arteries without peripheral pulmonary vascular congestion, suggesting pulmonary hypertension. There is atherosclerosis and tortuosity of the thoracic aorta. There are multi-level degenerative changes of the thoracic spine. Complex atherosclerosis of the upper abdominal aorta with luminal linear calcification suggests possibility of dissection and/or aneurysm, incompletely evaluated. There is a simple cyst of the upper right kidney. Gallstones layer dependently within the gallbladder lumen. Several hepatic cysts are seen within the left hepatic lobe. Low-density nodular thickening of the bilateral adrenal glands likely represent adenomas. CT/Chest without Contrast IMPRESSION: 1. No airspace consolidation or cavitating process. 2. Complex atherosclerosis of the upper abdominal aorta suggesting possibility of dissection and/or aneurysm. Incompletely visualized (seen on last image). 3. Mild fibrotic changes of the bilateral lower lung zones. 4. Moderate cardiomegaly. Suspect pulmonary hypertension. Cardiac conduction advised. 5. Cholelithiasis. Hepatic and right renal cysts. Electronically Signed: Atif Hampton MD ([place]) at 17:15 EST , Service support ,
[2019-02-08 16:43] LABS: Magnesium 2.2 mg/dL (1.6-2.6)
[2019-02-08 17:00] LABS: Bedside Glucose 101 mg/dL (70-110)
[2019-02-08] MEDS: Enoxaparin 30 MG/0.3 ML Syringe SC (17:49)
[2019-02-08] MEDS: guaiFENesin 1,200 MG Tablet 1200 MG PO (22:30)
[2019-02-08] MEDS: Carvedilol 6.25 MG Tablet PO (22:30)
[2019-02-08] MEDS: 0.9% Saline Lock 10 ML Syringe IV (22:30)
[2019-02-08] MEDS: Pravastatin 20 MG Tablet PO (22:30)
[2019-02-08 22:46] LABS: Bedside Glucose 89 mg/dL (70-110)
[2019-02-09] VITALS (15 sets, daily range): BP systolic 98–113; BP diastolic 62–71; PULSE 64–84; RESP 14–21; TEMP 36.3–37.2; O2SAT 93–96
[2019-02-09 06:01] LABS: Absolute Lymphocyte Count 0.35 X10^3/uL (0.83-4.51); Absolute Neutrophil Count 5.2 X10^3/uL (2.0-7.7); Basophil# 0.01 X10^3/uL; Basophil% 0.2 % (0-1); Eosinophil# 0.01 X10^3/uL; Eosinophils% 0.2 % (0-5); Hematocrit 40.5 % (40-54); Hemoglobin 12.6 g/dL (13.0-16.5); Lymphocyte # 0.35 X10^3/ul (4.0); Lymphocyte % 6.2 % (19-41); Mean Corp Hgb Conc 31.1 g/dL (32-36); Mean Corpuscular Hgb 29.6 pg (27.0-32.0); Mean Corpuscular Volume 95.3 fL (80-94); Mean Platelet Vol. 9.6 fl (6.2-12.0); Monocyte% 1.8 % (0-10); NRBC Flagged by Analyzer 0 % (0-5); Neutrophil # 5.17 X10^3/uL (2.7-7.7); Neutrophil % 91.2 % (47-70); POSITIVE COUNT YES; POSITIVE DIFFERENTIAL YES; RBC Distribution Width SD 56.3 fl (35.1-43.9); Red Blood Count 4.25 M/mm3 (4.6-6.2); White Blood Count 5.7 K/mm3 (4.4-11.0)
[2019-02-09 06:27] LABS: Anion Gap 5 (5-15); BUN 36 mg/dL (7-18); BUN/Creat Ratio 16.1 RATIO (10-20); Chloride 100 mmol/L (98-107); Cholesterol 139 mg/dL (200); Creatinine, Serum 2.23 mg/dL (0.70-1.30); EST Glomerular Filtration Rate 30 mL/min (>60); Est Glom Filt Rate - Afr Amer 36 mL/min (>60); Estimated Creatinine Clearance 26.73 ml/min; Glucose 178 mg/dL (74-106); High Density Lipoprotein 40 mg/dL; Potassium 3.9 mmol/L (3.5-5.1); Sodium Level 136 mmol/L (136-145); Thyroid Stim Hormone (TSH) 1.82 uIU/mL (0.358-3.74); Triglycerides 92 mg/dL; Very Low Density Lipoprotein 18 mg/dL (5-40)
[2019-02-09 06:31] LABS: Differential Indicated SCAN CRITERIA MET
[2019-02-09] MEDS: Levothyroxine 50 MCG Tablet PO (06:47)
[2019-02-09] MEDS: 0.9% Saline Lock 10 ML Syringe IV ×2 (06:47→21:42)
[2019-02-09 06:58] LABS: Platelet Count 125 K/mm3 (150-450)
[2019-02-09] MEDS: Insulin Lispro 100 UNIT/ML INSULN.PEN SC ×4 (07:03→21:42)
[2019-02-09 07:05] LABS: Bedside Glucose 164 mg/dL (70-110)
[2019-02-09] MEDS: Ipratropium/Albuterol Sulfate 3 ML AMPUL.NEB INHALATION ×4 (07:19→19:26)
[2019-02-09] MEDS: Aspirin 325 MG Tablet PO (08:49)
[2019-02-09] MEDS: Hydroxychloroquine 200 MG Tablet PO (08:49)
[2019-02-09] MEDS: Loratadine 10 MG Tablet PO (08:50)
[2019-02-09] MEDS: Enoxaparin 30 MG/0.3 ML Syringe SC (08:50)
[2019-02-09] MEDS: Furosemide 40 MG/4 ML Vial IV (08:50)
[2019-02-09] MEDS: Tamsulosin HCl 0.4 MG Capsule 0.8 MG PO (08:50)
[2019-02-09] MEDS: Amiodarone 200 MG Tablet PO (08:50)
[2019-02-09] MEDS: Carvedilol 6.25 MG Tablet PO ×2 (08:50→21:42)
[2019-02-09] MEDS: Finasteride 5 MG Tablet PO (08:50)
[2019-02-09] MEDS: Clopidogrel Bisulfate 75 MG Tablet PO (08:51)
[2019-02-09] MEDS: guaiFENesin 1,200 MG Tablet 1200 MG PO ×2 (08:51→21:42)
[2019-02-09] MEDS: Glucerna Shake 120 ML LIQUID 60 ML PO (11:17)
[2019-02-09 11:20] LABS: Bedside Glucose 177 mg/dL (70-110)
--- NOTE | 2019-02-09 12:16 | PCM.CONS.GEN ---
Reason for Consult Date of Consultation: 02/09/19 Reason for Consultation: hira History of Present Illness: The patient is a 83 year old M with past medical history of coronary artery disease and is leading to falls on the arm diabetes mellitus who presented with a chief complaint of gradually worsening shortness of breath for a few weeks prior to admission associated with chronic cough. Patient states his cough got worse than usual in the last few weeks and he had varnish fluid with no fever no chills. He also had chest pain associated with coughing only. He denies ever seeing a supply chain manager. He also has had some nasal congestion but no sore throat. He was found to have a creatinine of 2.39 which prompted renal consult. He was supposed to see a urologist for frequent urination every 15 minutes according to the daughter present at bedside. The patient is confused and review of systems is not that reliable. There is no history of NSAID use no dysuria no hematuria no nausea vomiting diarrhea abdominal pain. He has no other complaints. His creatinine baseline in the last 1 year and a half is between 2 and 2.6. 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) Abnormal echocardiogram (Chronic) Mixed hyperlipidemia (Chronic) Presence of stent in coronary artery (Chronic ~09/23/06) PTCA and stenting of the LAD and diagonal 09/23/2006 Atherosclerotic heart disease of [place] coronary artery without angina pectoris (Chronic) Essential hypertension (Chronic) Mixed sleep apnea (Chronic) BiPAP 17/11 mm of water with a backup rate of 12 Hypersomnolence disorder (Chronic) Dilated cardiomyopathy (Chronic) Paroxysmal ventricular tachycardia (Chronic) Syncope and collapse (Chronic) Abnormal result of cardiovascular function study, unspecified (Chronic) 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) Implant: 06/2000; Generator change: 03/17/2008 Hypothyroidism, iatrogenic (Chronic) 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) Dyspnea (Chronic) Chronic renal failure, stage 3 (moderate) (Chronic) Diabetes mellitus type 2 in nonobese (Chronic) Sustained ventricular tachycardia (Chronic) Hypothyroidism (Chronic) Cardiomyopathy (Chronic) Medical History: Medical History (Last Updated 01/05/19 @ 16:37 by Migdalia Fisher) Mixed hyperlipidemia (Chronic) E78.2 Presence of stent in coronary artery (Chronic) Onset Date: ~09/23/06 Z95.5 PTCA and stenting of the LAD and diagonal 09/23/2006 Atherosclerotic heart disease of [place] coronary artery without angina pectoris (Chronic) I25.10 Essential hypertension (Chronic) I10 Dilated cardiomyopathy (Chronic) I42.0 Paroxysmal ventricular tachycardia (Chronic) I47.2 Syncope and collapse (Chronic) R55 Abnormal result of cardiovascular function study, unspecified (Chronic) R94.30 Hypothyroidism, iatrogenic (Chronic) E03.2 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) I70.219 Dyspnea (Chronic) R06.00 Chest pain (Acute) R07.9 Chronic renal failure, stage 3 (moderate) (Chronic) N18.3 Diabetes mellitus type 2 in nonobese (Chronic) E11.9 Sustained ventricular tachycardia (Chronic) I47.2 Hypothyroidism (Chronic) E03.9 Cardiomyopathy (Chronic) I42.9 Fatigue (Resolved) R53.83 History of left heart catheterization (LHC) Onset Date: ~01/05/19 Z98.890 LEFT MAIN: distal: eccentric: 25 % Stenosis; LEFT ANTERIOR DESCENDING ARTERY: PROX LAD: Previously placed stent is patent with minimal luminal irregularities, MID LAD: Mild luminal irregularities, 25 % Stenosis, DISTAL LAD: Mild luminal irregularities; DIAGONAL 1: Proximal - Previously placed stent is patent with minimal luminal irregularities; CIRCUMFLEX ARTERY: PROX CIRC: Previously placed stent is patent with minimal luminal irregularities OM 2: Mid - Mild luminal irregularities, RIGHT CORONARY ARTERY: Mild luminal irregularities, PROX RCA: diffuse: eccentric: 25 % Stenosis, MID RCA: eccentric: 25 - 50 % Stenosis, DISTAL RCA: diffuse: eccentric: 10 - 25 % Stenosis; RT PDA: Proximal - Mild luminal irregularities per cath 01/05/19 Myalgia (Resolved) M79.1 Allergies atorvastatin [From Lipitor] Adverse Reaction (Verified 02/08/19 09:35) myalgia leflunomide [From Arava] Adverse Reaction (Verified 02/08/19 09:35) PROBLEMS WITH MY FEET simvastatin [From Zocor] Adverse Reaction (Verified 02/08/19 09:35) myalgia Home Medications: Ambulatory Orders Medication Instructions Recorded Aspirin 325 mg PO DAILY@0800 05/22/16 Colchicine 0.6 mg PO DAILY 05/22/16 Finasteride [Proscar] 5 mg PO DAILY 05/22/16 Levothyroxine [Synthroid] 50 mcg PO DAILY 05/22/16 Tamsulosin HCl [Flomax] 0.4 mg PO DAILY 05/22/16 hydroxychloroquine 200 mg tablet 200 mg PO DAILY tab 11/10/17 tramadol 50 mg tablet 50 mg PO QHS PRN PRN tab 11/10/17 albuterol sulfate 2.5 mg INHALATION Q4H PRN 03/26/18 meclizine 25 mg chewable tablet 25 mg PO TID PRN tab 03/26/18 clopidogrel 75 mg tablet 75 mg PO DAILY #90 tab 07/21/18 pravastatin 20 mg tablet 20 mg PO QODAY #45 tab 11/10/18 amiodarone 200 mg tablet 200 mg PO DAILY #90 tab 11/16/18 carvedilol 6.25 mg tablet 6.25 mg PO BID #180 tab 11/16/18 nitroglycerin 0.4 mg sublingual 0.4 mg SUBLINGUAL Q5-15M PRN #25 11/16/18 tablet tab Fexofenadine HCl 180 mg PO DAILY 02/08/19 Furosemide 40 mg PO DAILY 02/08/19 Prednisone 5 mg PO DAILY 02/08/19 Surgical History: Surgical History (Last Reviewed 12/24/18 @ 15:39 by MARTELL Patel) 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) Z95.810 Implant: 06/2000; Generator change: 03/17/2008 Presence of coronary angioplasty implant and graft Onset Date: ~09/23/06 Z95.5 PTCA and stenting of the LAD and diagonal 09/23/2006 History of appendectomy Z98.890, Z90.49 Surgical History: angioplasty, appendectomy, - - AICD, appendectomy, PCI. Psychiatric History: No pertinent psych hx Lives: With Family Smoking Status: Former smoker - *Family History Paternal Family History: Family History (Last Reviewed 12/24/18 @ 15:39 by MARTELL Patel) Mother Alzheimers disease Brother Cancer Brother Hypertension Brother CAD (coronary artery disease) Sister CAD (coronary artery disease) Sister Breast cancer History Items: Pulmonary Disease - emphysema, s/p lobectomy Maternal Family History: Family History (Last Reviewed 12/24/18 @ 15:39 by MARTELL Patel) Mother Alzheimers disease Brother Cancer Brother Hypertension Brother CAD (coronary artery disease) Sister CAD (coronary artery disease) Sister Breast cancer History Items: Dementia, Heart Disease Sibling Family History: Family History (Last Reviewed 12/24/18 @ 15:39 by MARTELL Patel) Mother Alzheimers disease Brother Cancer Brother Hypertension Brother CAD (coronary artery disease) Sister CAD (coronary artery disease) Sister Breast cancer History Items: Heart Disease Offspring Family History: Family History (Last Reviewed 12/24/18 @ 15:39 by MARTELL Patel) Mother Alzheimers disease Brother Cancer Brother Hypertension Brother CAD (coronary artery disease) Sister CAD (coronary artery disease) Sister Breast cancer History Items: No pertinent history Review of Systems Eyes: Reports: - - Patient is a poor historian but the review of systems is otherwise negative unless noted in the HPI. Patient Problems: Active and Suspected Problems (Last Updated 01/05/19 @ 16:37 by Migdalia Fisher) Hypoxia (Acute) - Physical Exam Vitals/I&O's: Vital Signs Temp Pulse Resp BP Pulse Ox 98.0 F 81 21 H 103/71 95 02/09/19 08:45 02/09/19 11:37 02/09/19 11:37 02/09/19 08:45 02/09/19 08:45 Oxygen Flow Rate (L/min) 2 Oxygen Delivery Method Room Air Weight: 82.5 kg Body Mass Index (BMI) 25.7 Orthostatic Vital Signs Start: 02/08/19 17:04 Freq: q24h Status: Active Protocol: Activity Type Activity Date Activity User E-Sign Co-Sign Detail Recorded Client Recorded Date Recorded By Document 02/08/19 17:04 EY [id number] 02/08/19 18:08 EY 02/08/19 17:04 Orthostatic Vitals Standing -Blood Pressure (90/60-120/80) 105/68 -Extremity Use Right Arm -Pulse Rate (60-100) 94 Sitting -Blood Pressure (90/60-120/80) 104/67 -Extremity Use Right Arm -Pulse Rate (60-100) 91 Lying -Blood Pressure (90/60-120/80) 111/70 -Extremity Use Right Arm -Pulse Rate (60-100) 89 Intake and Output for Last 24 Hours 02/07/19 02/08/19 02/09/19 23:59 23:59 23:59 Intake Total 700 / 700 Output Total 200 / 200 875 / 875 Balance -200 / 100 -175 / -175 General: Alert, Oriented x3, Cooperative HEENT: Atraumatic, PERRLA, EOMI, Normocephalic Neck: Supple, No JVD, Negative Carotid Bruits Lungs: Clear to auscultation, Normal air movement, - - Decreased air entry bilaterally Cardiovascular: Regular rate, No murmurs Abdomen: Bowel Sounds Present, Soft, Non Tender Extremities: No edema, Capillary Refill Less than 3 Seconds Skin: No rashes, No breakdown Musculoskeletal: No Tenderness to Palpation of Joints or Extremities Neurological: Cranial nerves II-XII grossly intact Psych/Mental Status: Normal Affect, Appropriate Microbiology Past 72 Hours 02/08/19 16:55 Sputum, Expectorated/Coughed Gram Stain - Final 02/08/19 14:05 Mucosa - Nose Respiratory Panel (PCR) - Final RSV A 02/08/19 13:50 Urine, Clean Catch Streptococcus pneumoniae Antigen (M - Final 02/08/19 13:50 Urine, Clean Catch Legionella Antigen - Final Laboratory Results 02/08/19 10:45: Magnesium 2.2 02/08/19 13:50: Urine Color Yellow, Urine Clarity Sl. Cloudy, Urine pH 7.0, Ur Specific Bulger 1.005, Urine Protein 15 H, Urine Glucose (UA) Normal, Urine Ketones Negative, Urine Occult Blood Negative, Urine Nitrite Negative, Urine Bilirubin Negative, Urine Urobilinogen 1 H, Ur Leukocyte Esterase Negative, Urine RBC 0 SEEN, Urine WBC 0 SEEN, Ur Squamous Epith Cells 0-5 SEEN, Urine Bacteria 1+, Urine Mucus 0 SEEN 02/08/19 16:53: POC Glucose 101 02/08/19 17:00: Troponin I 0.017 02/08/19 19:44: Troponin I < 0.015 02/08/19 22:27: POC Glucose 89 02/09/19 05:40: WBC 5.7, RBC 4.25 L, Hgb 12.6 L, Hct 40.5, MCV 95.3 H, MCH 29.6, MCHC 31.1 L, RDW Std Deviation 56.3 H, RDW Coeff of [place] 16.0 H, Plt Count 125 L, MPV 9.6, Immature Gran % (Auto) 0.400, Neut % (Auto) 91.2 H, Lymph % (Auto) 6.2 L, [place] % (Auto) 1.8, Eos % (Auto) 0.2, Baso % (Auto) 0.2, Absolute Neuts (auto) 5.2, Absolute Lymphs (auto) 0.35 L, Nucleated RBC % 0 02/09/19 05:40: Sodium 136, Potassium 3.9, Chloride 100, Carbon Dioxide 31.0, Anion Gap 5, BUN 36 H, Creatinine 2.23 H, Estim Creat Clear Calc 26.73, Est GFR (MDRD) Af Amer 36 L, Est GFR (MDRD) Non-Af 30 L, BUN/Creatinine Ratio 16.1, Glucose 178 H, Calcium 9.0, Triglycerides 92, Cholesterol 139, LDL Cholesterol 81, VLDL Cholesterol 18, HDL Cholesterol 40, TSH 1.82 02/09/19 06:58: POC Glucose 164 H 02/09/19 11:10: POC Glucose 177 H Current Medications Acetaminophen (Tylenol) 650 mg PO Q6H PRN PRN PRN Reason: Pain Score 1-3 /Temp>100.7 Albuterol Sulfate (Ventolin Aerosols) 2.5 mg INHALATION Q2H PRN PRN PRN Reason: WHEEZING Albuterol/Ipratropium (Duoneb) 3 ml INHALATION Q4H.RT [facility] Last Admin: 02/09/19 11:11 Dose: 3 ml Documented by: Amiodarone HCl (Cordarone) 200 mg PO DAILY [facility] Last Admin: 02/09/19 08:50 Dose: 200 mg Documented by: Aspirin (Aspirin) 325 mg PO DAILY@0800 [facility] Last Admin: 02/09/19 08:49 Dose: 325 mg Documented by: Bisacodyl (Dulcolax) 10 mg RECTAL DAILY PRN PRN PRN Reason: Constipation Carvedilol (Coreg) 6.25 mg PO BID [facility] Last Admin: 02/09/19 08:50 Dose: 6.25 mg Documented by: Clopidogrel Bisulfate (Plavix) 75 mg PO DAILY [facility] Last Admin: 02/09/19 08:51 Dose: 75 mg Documented by: Colchicine (Colchicine) 0.6 mg PO DAILYCM [facility] Last Admin: 02/09/19 08:49 Dose: 0.6 mg Documented by: Docusate Sodium (Colace) 200 mg PO BID PRN PRN PRN Reason: Constipation Enoxaparin Sodium (Lovenox) 30 mg SC DAILY [facility] Last Admin: 02/09/19 08:50 Dose: 30 mg Documented by: Finasteride (Proscar) 5 mg PO DAILY [facility] Last Admin: 02/09/19 08:50 Dose: 5 mg Documented by: Furosemide (Lasix) 40 mg IV DAILY [facility] Last Admin: 02/09/19 08:50 Dose: 40 mg Documented by: Glucagon () 1 mg IM .X1 PRN PRN Reason: Hypoglycemia Guaifenesin (Mucinex) 1,200 mg PO BID [facility] Last Admin: 02/09/19 08:51 Dose: 1,200 mg Documented by: [facility]lor[facility]) [facility] Admin: 02/09/19 08:49 Dose: 200 mg Documented by: Sodium Chloride () 250 mls @ 15 mls/hr IV .[id number] PRN PRN Reason: Saline Flush Dextrose (Dextrose 10%-Water) 250 mls @ 999 mls/hr IV X1 PRN; Protocol PRN Reason: HYPOGLYCEMIA Insulin Human Lispro (Humalog Kwikpen (Bkc)) 0 unit SC ACHS [facility]; Protocol Last Admin: 02/09/19 11:13 Dose: 2 u Documented by: Levothyroxine Sodium (Synthroid) 50 mcg PO DAILY@0600 [facility] Last Admin: 02/09/19 06:47 Dose: 50 mcg Documented by: Loratadine (Claritin) 10 mg PO DAILY [facility] Last Admin: 02/09/19 08:50 Dose: 10 mg Documented by: Meclizine HCl (Antivert) 25 mg PO TID PRN PRN Reason: NAUSEA Methylprednisolone (Solu-Medrol) 40 mg IV Q8 [facility] Last Admin: 02/09/19 06:47 Dose: 40 mg Documented by: Morphine Sulfate () 2 mg IV Q3H PRN PRN PRN Reason: Pain Score 6-10/10 Nitroglycerin (Nitrostat) 0.4 mg SUBLINGUAL .Q5-15M PRN PRN Reason: CARDIAC/CHEST PAIN Nutritional Formula (Lactose Free) (Glucerna Shake) 60 ml PO TIDCM [facility] Last Admin: 02/09/19 11:17 Dose: 60 ml Documented by: Ondansetron HCl (Zofran) 4 mg IV Q8H PRN PRN PRN Reason: Nausea Oxycodone HCl (Oxyir) 5 mg PO Q4H PRN PRN PRN Reason: Pain Score 4-5/10 Polyethylene Glycol (Miralax) 17 gm PO DAILY [facility] Last Admin: 02/09/19 08:50 Dose: Not Given Documented by: Pravastatin Sodium (Pravachol) 20 mg PO QODAY@2200 [facility] Last Admin: 02/08/19 22:30 Dose: 20 mg Documented by: Sodium Chloride () 10 - 40 ml IV UD PRN PRN Reason: SALINE FLUSH Last Admin: 02/09/19 06:47 Dose: 10 ml Documented by: Tamsulosin HCl (Flomax) 0.8 mg PO DAILY [facility] Last Admin: 02/09/19 08:50 Dose: 0.8 mg Documented by: Tramadol HCl (Ultram) 50 mg PO QHS PRN PRN PRN Reason: Pain Score 1-10/10 Assessment/Plan All Active Problems (Last Updated 01/05/19 @ 16:37 by Migdalia Fisher) Hypoxia (Acute) Chest pain (Acute) Chest pain (Acute) Fatigue (Resolved) Myalgia (Resolved) 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 He is at baseline currently will get a renal ultrasound. Check a spot urine protein creatinine. Appointment with the urologist this coming ready scheduled. UA bland except mild proteinuria. Further work-up as indicated by clinical course. Blood pressure is controlled continue current management. The above assessment and plan was discussed at length with the patient and his daughter present at the bedside and they both voiced understanding and agreed to proceed with the plan as outlined above. They were given the opportunity to ask questions and stated that those were answered to their satisfaction. Thank you very much for allowing me to participate in the care of this patient. Please do not hesitate to call if you have any questions or concerns.
--- NOTE | 2019-02-09 12:30 | US_ITS ---
STUDY: RENAL ULTRASOUND - COMPLETE REASON FOR EXAM: Male, 83 years old. Acute kidney injury TECHNIQUE: Ultrasound evaluation of the kidneys was performed with real-time and static [place]-scale imaging. COMPARISON: None. FINDINGS: Aorta: Visualized portions of abdominal aorta are normal in diameter. IVC: Visualized portions appear patent. Right kidney: Measures 10.3 cm. Normal contour. Renal cortical thickness appears decreased. 3.6 cm right renal simple cyst. No masses, stones, or hydronephrosis identified. Left kidney: Measures 10.0 cm. Somewhat irregular contour most likely represents a column of Michael. Renal cortical thickness appears normal. No cysts. No masses, stones, or hydronephrosis identified. Bladder: No intrinsic masses, stones, or abnormal dilatation noted. US/Kidney and Bladder IMPRESSION: Bilateral renal cortical atrophy. Somewhat irregular contour at the left kidney most likely represents a column of Michael. No obstruction or stones identified. Electronically Signed: Jhonny Khoury, at 19:43 EST Tel , Service support ,
--- NOTE | 2019-02-09 13:47 | CASEMGMT ---
DEAN ROWAN Assessment: Face to Face with patient for initial transition planning/care coordination assessment. DEAN ROWAN introduced self and role at [facility], pt voices understanding and consents to assessment at this time. Pt is sitting up in bed in no distress at this time. Pt is A/Ox4 at this time and answers all questions appropriately at this time. Care providers, pharmacy, and demographics verified at this time. Presentation: Increased SOB for last several weeks Admitting dx: COPD/CHF exac PCP: Edwin Specialists: Morris Preferred Pharmacy: [facility] Insurance: MCR A/B, [employer] Prescription Benefit: Yes Living Will/HPOA: Pt has LW/HPOA and is aware that they are not on file at [facility] at this time. Pt's , Silva Simpson, is HPOA. LNOK: Silva Simposn, ; Rupal Fernandez, daughter Living Arrangements: Pt lives with on main level of 2 story home and states no concerns at home at this time. Pt states is independent with ADL's. DME/HHC: Pt has the following DME: cane(does not use), grab bars, and shower chair. Pt states no need for any further DME at this time. Pt states no hx of HHC or SNF in the past. Pt states no concerns with going home at time of discharge. Pt is retired. Pt does not smoke or drink ETOH. Pt states no further concerns/needs at this time. CM to follow for any further discharge planning/needs. Advised pt to ask for CM if any further questions/concerns/needs arise, voices understanding. Goal: Home Plan[place]AN ROWAN
[2019-02-09 16:46] LABS: Bedside Glucose 165 mg/dL (70-110)
[2019-02-09 18:54] LABS: Protein, Urine (Random) 12.8 mg/dL (<11.9); Protein:Creat Ratio 159 mg/g CRE (0-200)
--- NOTE | 2019-02-09 19:04 | PCM.PROGNOTE ---
Subjective: Patient was seen and examined today, I talked briefly with his daughter today. Nephrology saw the patient today and ordered a renal ultrasound which is pending at this time. Patient states that he is breathing much better today, it is my opinion that he probably was in congestive heart failure-acute on chronic systolic failure-and he has responded to IV Lasix. Patient is currently on room air at this time. - Physical Exam Vitals/I&O's: Vital Signs Temp Pulse Resp BP Pulse Ox 97.6 F L 84 19 H 98/62 93 02/09/19 14:16 02/09/19 15:04 02/09/19 15:04 02/09/19 14:16 02/09/19 14:16 Oxygen Flow Rate (L/min) 2 Oxygen Delivery Method Room Air Weight: 82.5 kg Body Mass Index (BMI) 25.7 Orthostatic Vital Signs Start: 02/08/19 17:04 Freq: q24h Status: Active Protocol: Activity Type Activity Date Activity User E-Sign Co-Sign Detail Recorded Client Recorded Date Recorded By Document 02/08/19 17:04 EY [id number] 02/08/19 18:08 EY 02/08/19 17:04 Orthostatic Vitals Standing -Blood Pressure (90/60-120/80) 105/68 -Extremity Use Right Arm -Pulse Rate (60-100) 94 Sitting -Blood Pressure (90/60-120/80) 104/67 -Extremity Use Right Arm -Pulse Rate (60-100) 91 Lying -Blood Pressure (90/60-120/80) 111/70 -Extremity Use Right Arm -Pulse Rate (60-100) 89 Intake and Output for Last 24 Hours 02/07/19 02/08/19 02/09/19 23:59 23:59 23:59 Intake Total 700 / 700 Output Total 200 / 200 875 / 875 Balance -200 / 100 -175 / -175 General: Alert, Oriented x3, Cooperative, No apparent distress, Well developed HEENT: Atraumatic, PERRLA, EOMI, Normocephalic Oral: Moist Mucosa Neck: Supple, Trachea Midline, Thyroid Normal Size and Texture Lungs: Clear to auscultation, Normal air movement, No rhonchi, No wheeze, No rales Cardiovascular: Regular rate, Regular Rhythm, Normal S1, Normal S2, No murmurs Abdomen: Bowel Sounds Present, Soft, Non Tender, Non-Distended Extremities: No clubbing, No cyanosis, No edema, Capillary Refill Less than 3 Seconds Skin: No rashes, No breakdown Musculoskeletal: No Tenderness to Palpation of Joints or Extremities Neurological: Cranial nerves II-XII grossly intact, Neuro grossly intact, Sensory exam intact to light touch and pain Psych/Mental Status: Normal Affect, Appropriate, Alert and oriented to time, place, person, mood and affect Microbiology Past 72 Hours 02/08/19 16:55 Sputum, Expectorated/Coughed Gram Stain - Final 02/08/19 14:05 Mucosa - Nose Respiratory Panel (PCR) - Final RSV A 02/08/19 13:50 Urine, Clean Catch Streptococcus pneumoniae Antigen (M - Final 02/08/19 13:50 Urine, Clean Catch Legionella Antigen - Final Laboratory Results 02/08/19 19:44: Troponin I < 0.015 02/08/19 22:27: POC Glucose 89 02/09/19 05:40: WBC 5.7, RBC 4.25 L, Hgb 12.6 L, Hct 40.5, MCV 95.3 H, MCH 29.6, MCHC 31.1 L, RDW Std Deviation 56.3 H, RDW Coeff of [place] 16.0 H, Plt Count 125 L, MPV 9.6, Immature Gran % (Auto) 0.400, Neut % (Auto) 91.2 H, Lymph % (Auto) 6.2 L, [place] % (Auto) 1.8, Eos % (Auto) 0.2, Baso % (Auto) 0.2, Absolute Neuts (auto) 5.2, Absolute Lymphs (auto) 0.35 L, Nucleated RBC % 0 02/09/19 05:40: Sodium 136, Potassium 3.9, Chloride 100, Carbon Dioxide 31.0, Anion Gap 5, BUN 36 H, Creatinine 2.23 H, Estim Creat Clear Calc 26.73, Est GFR (MDRD) Af Amer 36 L, Est GFR (MDRD) Non-Af 30 L, BUN/Creatinine Ratio 16.1, Glucose 178 H, Calcium 9.0, Triglycerides 92, Cholesterol 139, LDL Cholesterol 81, VLDL Cholesterol 18, HDL Cholesterol 40, TSH 1.82 02/09/19 06:58: POC Glucose 164 H 02/09/19 11:10: POC Glucose 177 H 02/09/19 16:32: POC Glucose 165 H 02/09/19 18:33: U Random Total Protein 12.8 H, Urine Creatinine 80.70, Protein/Creatinin Ratio 159 Current Medications Acetaminophen (Tylenol) 650 mg PO Q6H PRN PRN PRN Reason: Pain Score 1-3 /Temp>100.7 Albuterol Sulfate (Ventolin Aerosols) 2.5 mg INHALATION Q2H PRN PRN PRN Reason: WHEEZING Albuterol/Ipratropium (Duoneb) 3 ml INHALATION Q4H.RT [facility] Last Admin: 02/09/19 14:41 Dose: 3 ml Documented by: Amiodarone HCl (Cordarone) 200 mg PO DAILY [facility] Last Admin: 02/09/19 08:50 Dose: 200 mg Documented by: Aspirin (Aspirin) 325 mg PO DAILY@0800 [facility] Last Admin: 02/09/19 08:49 Dose: 325 mg Documented by: Bisacodyl (Dulcolax) 10 mg RECTAL DAILY PRN PRN PRN Reason: Constipation Carvedilol (Coreg) 6.25 mg PO BID [facility] Last Admin: 02/09/19 08:50 Dose: 6.25 mg Documented by: Clopidogrel Bisulfate (Plavix) 75 mg PO DAILY [facility] Last Admin: 02/09/19 08:51 Dose: 75 mg Documented by: Colchicine (Colchicine) 0.6 mg PO DAILYCM [facility] Last Admin: 02/09/19 08:49 Dose: 0.6 mg Documented by: Docusate Sodium (Colace) 200 mg PO BID PRN PRN PRN Reason: Constipation Enoxaparin Sodium (Lovenox) 30 mg SC DAILY [facility] Last Admin: 02/09/19 08:50 Dose: 30 mg Documented by: Finasteride (Proscar) 5 mg PO DAILY [facility] Last Admin: 02/09/19 08:50 Dose: 5 mg Documented by: Furosemide (Lasix) 40 mg IV DAILY [facility] Last Admin: 02/09/19 08:50 Dose: 40 mg Documented by: Glucagon () 1 mg IM .X1 PRN PRN Reason: Hypoglycemia Guaifenesin (Mucinex) 1,200 mg PO BID [facility] Last Admin: 02/09/19 08:51 Dose: 1,200 mg Documented by: Hydroxychloroquine Sulfate (Plaquenil) 200 mg PO DAILYCM [facility] Last Admin: 02/09/19 08:49 Dose: 200 mg Documented by: Sodium Chloride () 250 mls @ 15 mls/hr IV .[id number] PRN PRN Reason: Saline Flush Dextrose (Dextrose 10%-Water) 250 mls @ 999 mls/hr IV X1 PRN; Protocol PRN Reason: HYPOGLYCEMIA Insulin Human Lispro (Humalog Kwikpen (Bkc)) 0 unit SC ACHS [facility]; Protocol Last Admin: 02/09/19 16:33 Dose: 2 u Documented by: Levothyroxine Sodium (Synthroid) 50 mcg PO DAILY@0600 [facility] Last Admin: 02/09/19 06:47 Dose: 50 mcg Documented by: Loratadine (Claritin) 10 mg PO DAILY [facility] Last Admin: 02/09/19 08:50 Dose: 10 mg Documented by: Meclizine HCl (Antivert) 25 mg PO TID PRN PRN Reason: NAUSEA Methylprednisolone (Solu-Medrol) 40 mg IV Q8 [facility] Last Admin: 02/09/19 14:19 Dose: 40 mg Documented by: Morphine Sulfate () 2 mg IV Q3H PRN PRN PRN Reason: Pain Score 6-10/10 Nitroglycerin (Nitrostat) 0.4 mg SUBLINGUAL .Q5-15M PRN PRN Reason: CARDIAC/CHEST PAIN Nutritional Formula (Lactose Free) (Glucerna Shake) 60 ml PO TIDCM [facility] Last Admin: 02/09/19 16:39 Dose: Not Given Documented by: Ondansetron HCl (Zofran) 4 mg IV Q8H PRN PRN PRN Reason: Nausea Oxycodone HCl (Oxyir) 5 mg PO Q4H PRN PRN PRN Reason: Pain Score 4-5/10 Polyethylene Glycol (Miralax) 17 gm PO DAILY [facility] Last Admin: 02/09/19 08:50 Dose: Not Given Documented by: Pravastatin Sodium (Pravachol) 20 mg PO QODAY@2200 [facility] Last Admin: 02/08/19 22:30 Dose: 20 mg Documented by: Sodium Chloride () 10 - 40 ml IV UD PRN PRN Reason: SALINE FLUSH Last Admin: 02/09/19 06:47 Dose: 10 ml Documented by: Tamsulosin HCl (Flomax) 0.8 mg PO DAILY [facility] Last Admin: 02/09/19 08:50 Dose: 0.8 mg Documented by: Tramadol HCl (Ultram) 50 mg PO QHS PRN PRN PRN Reason: Pain Score 1-1010 Medical Necessity - Tobacco Use Smoking Status: Former smoker Assessment/Plan All Active Problems (Last Updated 01/05/19 @ 16:37 by Migdalia Fisher) Hypoxia (Acute) Chest pain (Acute) Chest pain (Acute) Fatigue (Resolved) Myalgia (Resolved) #1 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
[2019-02-09 20:56] LABS: Bedside Glucose 200 mg/dL (70-110)
--- NOTE | 2019-02-10 02:49 | NURSING ---
pt sitting up in bed. pt iv leaking blood all over his gown and sheet. pt cleaned up and new iv applied.
[2019-02-10 03:00] VITALS: BP 133/71; PULSE 80; RESP 18; TEMP 36.4; O2SAT 94
[2019-02-10 03:04] VITALS: PULSE 68
[2019-02-10 05:38] LABS: Anion Gap 4 (5-15); BUN 43 mg/dL (7-18); BUN/Creat Ratio 21.1 RATIO (10-20); Chloride 99 mmol/L (98-107); Creatinine, Serum 2.04 mg/dL (0.70-1.30); EST Glomerular Filtration Rate 33 mL/min (>60); Est Glom Filt Rate - Afr Amer 40 mL/min (>60); Estimated Creatinine Clearance 29.22 ml/min; Glucose 183 mg/dL (74-106); Potassium 3.7 mmol/L (3.5-5.1); Sodium Level 134 mmol/L (136-145)
[2019-02-10] MEDS: Levothyroxine 50 MCG Tablet PO (05:50)
[2019-02-10] MEDS: 0.9% Saline Lock 10 ML Syringe IV (05:51)
[2019-02-10] MEDS: Insulin Lispro 100 UNIT/ML INSULN.PEN SC ×2 (06:52→11:27)
[2019-02-10 07:00] VITALS: PULSE 67
[2019-02-10 07:01] LABS: Bedside Glucose 154 mg/dL (70-110)
[2019-02-10 07:21] VITALS: PULSE 69; RESP 18; O2SAT 93
[2019-02-10] MEDS: Ipratropium/Albuterol Sulfate 3 ML AMPUL.NEB INHALATION ×2 (07:23→11:16)
[2019-02-10 08:36] VITALS: BP 111/72; PULSE 71; RESP 16; TEMP 36.2; O2SAT 97
[2019-02-10] MEDS: Aspirin 325 MG Tablet PO (08:42)
[2019-02-10] MEDS: Amiodarone 200 MG Tablet PO (08:42)
[2019-02-10] MEDS: guaiFENesin 1,200 MG Tablet 1200 MG PO (08:43)
[2019-02-10] MEDS: Finasteride 5 MG Tablet PO (08:43)
[2019-02-10] MEDS: Loratadine 10 MG Tablet PO (08:43)
[2019-02-10] MEDS: Tamsulosin HCl 0.4 MG Capsule 0.8 MG PO (08:43)
[2019-02-10] MEDS: Hydroxychloroquine 200 MG Tablet PO (08:43)
[2019-02-10] MEDS: Carvedilol 6.25 MG Tablet PO (08:43)
[2019-02-10] MEDS: Enoxaparin 30 MG/0.3 ML Syringe SC (08:43)
[2019-02-10] MEDS: Clopidogrel Bisulfate 75 MG Tablet PO (08:43)
[2019-02-10] MEDS: Furosemide 40 MG/4 ML Vial IV (08:43)
[2019-02-10] MEDS: Glucerna Shake 120 ML LIQUID 60 ML PO (08:44)
--- NOTE | 2019-02-10 09:37 | CASEMGMT ---
LW/POA forms not on file, CM let pt know that the forms are not on file, he had indicated his is medical POA. DIAZ Salcedo
[2019-02-10 11:16] VITALS: PULSE 74; RESP 16
[2019-02-10 11:56] LABS: Bedside Glucose 240 mg/dL (70-110)
--- NOTE | 2019-02-10 12:43 | DCINST_ITS ---
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) Hypoxia (Acute) You will use the following diet at home:: No restrictions Your food should be the consistency of: Regular Your liquids should be the consistency of: Regular/Thin Discharge Activity: Return to Normal Activity Weight Bearing Status: Full weight bearing Allergies/Adverse Reactions: Allergies atorvastatin [From Lipitor] Adverse Reaction (Verified 02/08/19 09:35) myalgia leflunomide [From Arava] Adverse Reaction (Verified 02/08/19 09:35) PROBLEMS WITH MY FEET simvastatin [From Zocor] Adverse Reaction (Verified 02/08/19 09:35) myalgia Medications to take at Discharge Aspirin 325 mg PO DAILY@0800 05/22/16 Colchicine 0.6 mg PO DAILY 05/22/16 Finasteride [Proscar] 5 mg PO DAILY 05/22/16 Levothyroxine [Synthroid] 50 mcg PO DAILY 05/22/16 Tamsulosin HCl [Flomax] 0.4 mg PO DAILY 05/22/16 hydroxychloroquine 200 mg tablet 200 mg PO DAILY tab 11/10/17 tramadol 50 mg tablet 50 mg PO QHS PRN PRN tab 11/10/17 albuterol sulfate 2.5 mg INHALATION Q4H PRN 03/26/18 meclizine 25 mg chewable tablet 25 mg PO TID PRN tab 03/26/18 clopidogrel 75 mg tablet 75 mg PO DAILY #90 tab 07/21/18 pravastatin 20 mg tablet 20 mg PO QODAY #45 tab 11/10/18 amiodarone 200 mg tablet 200 mg PO DAILY #90 tab 11/16/18 carvedilol 6.25 mg tablet 6.25 mg PO BID #180 tab 11/16/18 nitroglycerin 0.4 mg sublingual tablet 0.4 mg SUBLINGUAL Q5-15M PRN #25 tab 11/16/18 Fexofenadine HCl 180 mg PO DAILY 02/08/19 Furosemide 40 mg PO BID #60 tab 02/10/19 MethylPREDNISolone DosePak [Medrol DosePak] 4 mg PO UD #1 box 02/10/19 Prednisone 5 mg PO DAILY #0 02/10/19 The following prescriptions were given: Furosemide 40 mg PO BID #60 tab Transmission Status: Pending to [facility] MethylPREDNISolone DosePak [Medrol DosePak] 4 mg PO UD #1 box Transmission Status: Pending to [facility] Primary Care Physician: Miguel Pineda MD [Primary Care Provider] - Test Results: Test results from this visit will be discussed in further detail at your follow- up appointment, if applicable. Please Follow Up With: Miguel Pineda MD Please Follow Up With: Migdalia Enriquez PA Please Follow Up With: Carlos Arora MD When: in 3 weeks-call [phone]
--- NOTE | 2019-02-10 13:07 | PCA ---
Paper work faxed to office, they stated they would call patient to schedule followup.
--- NOTE | 2019-02-10 13:47 | PHA.DC.MC ---
Pharmacy Service has performed discharge medication reconciliation and counseling for this patient. 1. METHYLPREDNISOLONE DOSE PACK - HOLD PREDNISONE UNTIL COMPLETE The patient's discharge medication list was reviewed for discrepancies and discrepancies were resolved. Home Medications Aspirin 325 mg PO DAILY@0800 05/22/16 Colchicine 0.6 mg PO DAILY 05/22/16 Finasteride [Proscar] 5 mg PO DAILY 05/22/16 Levothyroxine [Synthroid] 50 mcg PO DAILY 05/22/16 Tamsulosin HCl [Flomax] 0.4 mg PO DAILY 05/22/16 hydroxychloroquine 200 mg tablet 200 mg PO DAILY tab 11/10/17 tramadol 50 mg tablet 50 mg PO QHS PRN PRN tab 11/10/17 albuterol sulfate 2.5 mg INHALATION Q4H PRN 03/26/18 meclizine 25 mg chewable tablet 25 mg PO TID PRN tab 03/26/18 clopidogrel 75 mg tablet 75 mg PO DAILY #90 tab 07/21/18 pravastatin 20 mg tablet 20 mg PO QODAY #45 tab 11/10/18 amiodarone 200 mg tablet 200 mg PO DAILY #90 tab 11/16/18 carvedilol 6.25 mg tablet 6.25 mg PO BID #180 tab 11/16/18 nitroglycerin 0.4 mg sublingual tablet 0.4 mg SUBLINGUAL Q5-15M PRN #25 tab 11/16/18 Fexofenadine HCl 180 mg PO DAILY 02/08/19 Furosemide 40 mg PO BID #60 tab 02/10/19 MethylPREDNISolone DosePak [Medrol DosePak] 4 mg PO UD #1 box 02/10/19 Prednisone 5 mg PO DAILY #0 02/10/19 The patient was counseled on the following discharge medications and changes in medications for homegoing were reviewed. The Reason for Use, instructions for use, and potential side effects were reviewed for all new medications. The patient's questions regarding all of their medications were answered. The patient was able to verbally demonstrate an understanding of their discharge medications.
--- NOTE | 2019-02-11 13:53 | CASEMGMT ---
DEAN ROWAN Discharge Follow-Up Phone Call. Nkechi: 11 Strata: 3 Discharge Date: 02/10/19 Adm Dx: COPD, CHF exac Call to pt to inquire about how he has been doing since being discharged from the hospital. Pt stated, I'm doing well and he states his breathing is doing better. He states they reviewed the appts with his daughter, who goes with him to his appts and that she is aware of them. He states he does not think anyone called him yet to make an appt with Dr Arora and that he would ask his daughter to call to make an appt. He states they were able to garbage pick up man the prescriptions and he denies having any questions about the medications or discharge instructions. He denies other needs/concerns. DEAN ROWAN thanked pt for choosing [facility]. Chente PA RN, CM
--- NOTE | 2019-02-12 17:08 | PCM.DC.SUM ---
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) Abnormal echocardiogram (Chronic) Mixed hyperlipidemia (Chronic) Presence of stent in coronary artery (Chronic ~09/23/06) PTCA and stenting of the LAD and diagonal 09/23/2006 Atherosclerotic heart disease of [place] coronary artery without angina pectoris (Chronic) Essential hypertension (Chronic) Mixed sleep apnea (Chronic) BiPAP 17/11 mm of water with a backup rate of 12 Hypersomnolence disorder (Chronic) Dilated cardiomyopathy (Chronic) Paroxysmal ventricular tachycardia (Chronic) Syncope and collapse (Chronic) Abnormal result of cardiovascular function study, unspecified (Chronic) 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) Implant: 06/2000; Generator change: 03/17/2008 Hypothyroidism, iatrogenic (Chronic) 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 Work-up in the emergency room included a chest x-ray which was unchanged from the patient's last chest x-ray, beta natruretic peptide was elevated at 2500, troponin was unremarkable, creatinine was mildly elevated near his baseline, patient's pulse ox on room air at rest was 90%. Patient was ambulated and his pulse ox dropped to 88% on room air, patient was felt to have congestive heart failure and was given IV Lasix and was admitted to PCU. Patient had a respiratory swab obtained which was positive for RSV, he was seen in consultation by nephrology and given IV Solu-Medrol and maintained on IV Lasix at a low dose during his hospitalization. Patient improved during his hospitalization with improvement in his breathing. Patient had an ultrasound of his kidneys which indicated bilateral renal cortical atrophy-this was felt to be secondary to type 2 diabetes and nephrosclerosis. On 02/10/2019, patient was seen and examined: On examination he appeared in good health and spirits. Vital signs as documented. Skin warm and dry and without overt rashes. Neck without JVD. Lungs clear. Heart exam notable for regular rhythm, normal sounds and absence of murmurs, rubs or gallops. Abdomen unremarkable and without evidence of organomegaly, masses, or abdominal aortic enlargement. Extremities nonedematous. Neuro: Cranial nerves II through XII are grossly intact, no focal motor deficits were noted, sensation to light touch and pinprick intact. Psych: Patient is alert and oriented x3, he does not appear anxious or depressed On 02/10/2019, patient was seen and examined and felt to be in stable condition for discharge home - Physical Exam Vitals/I&O's: Vital Signs Temp Pulse Resp BP Pulse Ox 97.1 F L 74 16 111/72 97 02/10/19 08:36 02/10/19 11:16 02/10/19 11:16 02/10/19 08:36 02/10/19 08:36 Oxygen Flow Rate (L/min) 2 Oxygen Delivery Method Room Air Weight: 82.3 kg Body Mass Index (BMI) 25.7 Orthostatic Vital Signs Start: 02/08/19 17:04 Freq: q24h Status: Active Protocol: Activity Type Activity Date Activity User E-Sign Co-Sign Detail Recorded Client Recorded Date Recorded By Document 02/08/19 17:04 EY [id number] 02/08/19 18:08 EY 02/08/19 17:04 Orthostatic Vitals Standing -Blood Pressure (90/60-120/80) 105/68 -Extremity Use Right Arm -Pulse Rate (60-100) 94 Sitting -Blood Pressure (90/60-120/80) 104/67 -Extremity Use Right Arm -Pulse Rate (60-100) 91 Lying -Blood Pressure (90/60-120/80) 111/70 -Extremity Use Right Arm -Pulse Rate (60-100) 89 Intake and Output for Last 24 Hours 02/10/19 02/11/19 02/12/19 23:59 23:59 23:59 Intake Total 120 / 120 Balance 120 / 120 Microbiology Past 72 Hours 02/08/19 16:55 Sputum, Expectorated/Coughed Gram Stain - Final 02/08/19 16:55 Sputum, Expectorated/Coughed Respiratory Culture - Final Discharge Activity: Return to Normal Activity Weight Bearing Status: Full weight bearing Home Medications: Medications to take at Discharge Aspirin 325 mg PO DAILY@0800 05/22/16 Colchicine 0.6 mg PO DAILY 05/22/16 Finasteride [Proscar] 5 mg PO DAILY 05/22/16 Levothyroxine [Synthroid] 50 mcg PO DAILY 05/22/16 Tamsulosin HCl [Flomax] 0.4 mg PO DAILY 05/22/16 hydroxychloroquine 200 mg tablet 200 mg PO DAILY tab 11/10/17 tramadol 50 mg tablet 50 mg PO QHS PRN PRN tab 11/10/17 albuterol sulfate 2.5 mg INHALATION Q4H PRN 03/26/18 meclizine 25 mg chewable tablet 25 mg PO TID PRN tab 03/26/18 clopidogrel 75 mg tablet 75 mg PO DAILY #90 tab 07/21/18 pravastatin 20 mg tablet 20 mg PO QODAY #45 tab 11/10/18 amiodarone 200 mg tablet 200 mg PO DAILY #90 tab 11/16/18 carvedilol 6.25 mg tablet 6.25 mg PO BID #180 tab 11/16/18 nitroglycerin 0.4 mg sublingual tablet 0.4 mg SUBLINGUAL Q5-15M PRN #25 tab 11/16/18 Fexofenadine HCl 180 mg PO DAILY 02/08/19 Furosemide 40 mg PO BID #60 tab 02/10/19 MethylPREDNISolone DosePak [Medrol DosePak] 4 mg PO UD #1 box 02/10/19 Prednisone 5 mg PO DAILY #0 02/10/19 Following Prescrptions Were Given to Patient: Furosemide 40 mg PO BID #60 tab Transmission Status: Received by [facility] MethylPREDNISolone DosePak [Medrol DosePak] 4 mg PO UD #1 box Transmission Status: Received by [facility] PARDO-[address] [facility] Primary Care Physician: Miguel Pineda MD [Primary Care Provider] - Please Follow Up With: Miguel Pineda MD Please Follow Up With: Migdalia Enriquez PA Please Follow Up With: Carlos Arora MD When: in 3 weeks-call [phone] Disposition: Home Minutes spent on discharge:: 32 Patient Condition:: Stable Medical Necessity - Tobacco Use Smoking Status: Former smoker Meaningful Use Info Meaningful Use Diagnoses (Choose all that apply): CHF - CHF LOGAN/ARB ordered at discharge?: No Reason LOGAN/ARB not ordered?: Worsening renal function Documented LVEF (%): 15 Code Visit Inpatient E&M: 06123 Disch Hosp
== END 2019-02-10 13:50 | disposition home or self-care (01) | DRG 291 ==
LOC: ED 10:42 → PCU 15:12
PROVIDERS: Internal Medicine; Admitting Provider Internal Medicine; Emergency Provider Emergency Medicine; Family Provider Family Medicine; PCP Family Medicine; Visit Provider Internal Medicine
DX: I13.0 Hypertensive heart and chronic kidney disease with heart failure and stage 1 through stage 4 chronic kidney disease, or unspecified chronic kidney disease (principal); I50.43 Acute on chronic combined systolic (congestive) and diastolic (congestive) heart failure; I25.10 Atherosclerotic heart disease of native coronary artery without angina pectoris; J20.5 Acute bronchitis due to respiratory syncytial virus; I25.5 Ischemic cardiomyopathy; E11.22 Type 2 diabetes mellitus with diabetic chronic kidney disease; N18.3 Chronic kidney disease, stage 3 (moderate); E03.9 Hypothyroidism, unspecified; E78.2 Mixed hyperlipidemia; J44.9 Chronic obstructive pulmonary disease, unspecified; N40.1 Benign prostatic hyperplasia with lower urinary tract symptoms; G47.33 Obstructive sleep apnea (adult) (pediatric); Z95.810 Presence of automatic (implantable) cardiac defibrillator; Z95.5 Presence of coronary angioplasty implant and graft; Z87.891 Personal history of nicotine dependence
CPT/HCPCS: 36415; 70450; 71046; 71250; 76770; 80048; 80061; 81001; 82570; 82962; 83735; 83880; 84156; 84443; 84484; 85025; 85610; 87070; 87205; 87449; 87633; 93005; 94640; 94667; 94668; 97161; 97165; 97802; 99285; A4216; J1940; J2405

== ENCOUNTER 2019-03-25 16:46 | Inpatient (IN) | payer MEDICARE, OTHER, SELFPAY ==
[2019-03-11 06:13] VITALS: BMI 26.2
[2019-03-25] VITALS (10 sets, daily range): BP systolic 88–132; BP diastolic 55–74; PULSE 64–80; RESP 15–21; TEMP 36.5–36.6; O2SAT 95–100; BMI 23.7; BMI 25.7
--- NOTE | 2019-03-25 17:09 | EKG12_ITS ---
Test Reason : DIZZINESS Blood Pressure : / mmHG Vent. Rate : 067 BPM Atrial Rate : 067 BPM P-R Int : 216 ms QRS Dur : 132 ms QT Int : 478 ms P-R-T Axes : 044 -27 127 degrees QTc Int : 505 ms Sinus rhythm with 1st degree A-V block Left ventricular hypertrophy with QRS widening and repolarization abnormality Nonspecific ST/T wave abnormality Abnormal ECG Confirmed by BEATRIZ GALLARDO, TRISTAN ([id number]), metropolitan editor ASCENCION MOORE ([id number]) on 03/30/2019 8:01:14 AM Referred By: HERIBERTO/ANTHONY Confirmed By:TRISTAN HENDERSON MD
--- NOTE | 2019-03-25 17:09 | RAD_ITS ---
STUDY: X-RAY CHEST REASON FOR EXAM: Male, 83 years old. Syncopal episode with dizziness. TECHNIQUE: 2 frontal views of the chest COMPARISON: 02/08/2019. FINDINGS: Cardiac silhouette enlarged. Left-sided cardiac device. Pulmonary vascularity unremarkable. Aorta atherosclerotic. No focal airspace opacities. No pleural effusions. Upper abdomen unremarkable. Osseous structures intact. No pneumothorax. RAD/Chest 1 View (Portable) IMPRESSION: Cardiomegaly. No acute cardiopulmonary findings Electronically Signed: Jhonny Khoury, at 17:55 EST Tel , Service support ,
[2019-03-25 17:27] LABS: Absolute Lymphocyte Count 0.95 X10^3/uL (0.83-4.51); Absolute Neutrophil Count 4.4 X10^3/uL (2.0-7.7); Basophil# 0.02 X10^3/uL; Basophil% 0.3 % (0-1); Eosinophil# 0.03 X10^3/uL; Eosinophils% 0.5 % (0-5); Hemoglobin 14.2 g/dL (13.0-16.5); Lymphocyte # 0.95 X10^3/ul (4.0); Mean Corp Hgb Conc 32.3 g/dL (32-36); Mean Corpuscular Hgb 30.5 pg (27.0-32.0); Mean Corpuscular Volume 94.4 fL (80-94); Monocyte# 0.55 X10^3/uL; Monocyte% 9.3 % (0-10); NRBC Flagged by Analyzer 0 % (0-5); Neutrophil # 4.35 X10^3/uL (2.7-7.7); Neutrophil % 73.4 % (47-70); Platelet Count 170 K/mm3 (150-450); RBC Distribution Width SD 55.4 fl (35.1-43.9); Red Blood Count 4.66 M/mm3 (4.6-6.2); White Blood Count 5.9 K/mm3 (4.4-11.0)
[2019-03-25] MEDS: 0.9% Normal Saline 1,000 ML 1000 ML IV (17:39)
[2019-03-25 17:44] LABS: Anion Gap 7 (5-15); BUN 52 mg/dL (7-18); BUN/Creat Ratio 18.4 RATIO (10-20); Calcium,Total 9.6 mg/dL (8.5-10.1); Chloride 96 mmol/L (98-107); Creatinine, Serum 2.82 mg/dL (0.70-1.30); EST Glomerular Filtration Rate 23 mL/min (>60); Est Glom Filt Rate - Afr Amer 28 mL/min (>60); Estimated Creatinine Clearance 21.14 ml/min; Glucose 103 mg/dL (74-106); Potassium 4.2 mmol/L (3.5-5.1); Sodium Level 136 mmol/L (136-145)
--- NOTE | 2019-03-25 18:04 | ED.VISSUMM ---
- ER Visit Summary Date of Service: 03/25/19 Chief Complaint: [Dizziness] History of Present Illness: The patient is a 83 M [presents to the emergency department with intermittent episodes of feeling woozy for the last 2 to 3 months. Patient was admitted to the hospital mid January and at that time they increased his Lasix to 40 mg daily from 20 mg daily. Today patient had an episode where he got up after watching television and started to walk down the hallway when he started feeling quite lightheaded and his noted that he was going to fall and pass out so they helped him against the wall and down to the ground. Patient apparently was unresponsive for short time.] Patient denies any chest pain. He denies his defibrillator going off. He denies recent illness. He does have history of coronary artery disease, diabetes, hypertension, CHF, COPD, dilated cardiomyopathy, V. tach history, and syncope history. Physical Examination: [HEENT-PERRLA, EOMI. Cranial nerves II through XII grossly intact. TMs clear. Mucous membranes moist. No adenopathy. Cardiovascular-regular rate and rhythm without murmur or ectopy Lungs-clear to auscultation, chest wall stable without crepitus or subcu emphysema Abdomen-normoactive bowel sounds, soft, nontender, no rebound or rigidity, no peritoneal signs. Extremities-intact ?4, normal range of motion, normal pulses, atraumatic] Test Results: [Orthostatic vital signs were positive. EKG obtained on arrival shows sinus rhythm with a ventricular rate of 67 bpm with a first-degree AV block and some left ventricular hypertrophy noted. CBC with differential showed a white count 5.9, hemoglobin 14, hematocrit 44, platelets 170. Chemistries unremarkable. BUN was 52 and creatinine 2.82. Troponin is less than 0.15. Chest x-ray showed nothing acute.] Emergency Department Course and Treatment: [IV line was established and patient was given normal saline at 150 cc an hour.] Treatment Plan: [Admit for IV hydration] Disposition: [Admit] Impression: [Syncope Orthostatic hypotension Acute kidney injury] This note was generated with [employer] dictation software. It may contain incorrect words, spelling, and punctuation that were not noted in review of the chart prior to signing ED Disposition - Plan for ED Patient: Referrals: Miguel Pineda MD [Primary Care Provider] -
[2019-03-25 18:15] LABS: BNP,B-Type NATRIURETIC PEPTIDE 495.6 pg/mL (0-100)
--- NOTE | 2019-03-25 20:41 | PCM.HP.STD ---
Problem List (1) Acute renal failure superimposed on stage 3 chronic kidney disease Status: Chronic Comment: 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 (2) Near syncope Status: Acute (3) Dehydration Status: Acute (4) History of appendectomy Status: Chronic (5) Presence of coronary angioplasty implant and graft Status: Chronic Comment: PTCA and stenting of the LAD and diagonal 09/23/2006 (6) Abnormal echocardiogram Status: Chronic (7) Mixed hyperlipidemia Status: Chronic (8) Atherosclerotic heart disease of [place] coronary artery without angina pectoris Status: Chronic Qualifiers: [place] vs. transplanted heart: [place] heart Qualified Code(s): I25.10 - Atherosclerotic heart disease of [place] coronary artery without angina pectoris (9) Essential hypertension Status: Chronic (10) Mixed sleep apnea Status: Chronic Comment: BiPAP 17/11 mm of water with a backup rate of 12 (11) Hypersomnolence disorder Status: Chronic (12) Dilated cardiomyopathy Status: Chronic Comment: 15% EF (13) Paroxysmal ventricular tachycardia Status: Chronic (14) Abnormal result of cardiovascular function study, unspecified Status: Chronic (15) History of implantable cardioverter-defibrillator (ICD) placement Status: Chronic Comment: Implant: 06/2000; Generator change: 03/17/2008 (16) Hypothyroidism, iatrogenic Status: Chronic (17) Atherosclerosis of [place] arteries of extremity with intermittent claudication Status: Chronic Qualifiers: (18) Chronic renal failure, stage 3 (moderate) Status: Chronic (19) Diabetes mellitus type 2 in nonobese Status: Chronic (20) Sustained ventricular tachycardia Status: Chronic (21) Hypothyroidism Status: Chronic Qualifiers: (22) Cardiomyopathy Status: Chronic Qualifiers: History of Present Illness Date of Admission: 03/25/19 Chief Complaint: Generalized weakness and lightheadedness with upright posture and his legs buckled with walking. The patient is a 83 year old M with a past medical history of hypertension, type 2 diabetes mellitus, coronary artery disease, PTCA with stents, severe ischemic cardiomyopathy, hypothyroidism, sustained ventricular tachycardia, AICD placement, chronic renal failure stage III?4, hyperlipidemia, KENAN and history of hypersomnolence who presented to the emergency department at [facility] on 03/25/2019 complaining of lightheadedness and almost passing out when he stood up and took a few steps. Fortunately his and another family member were there to prevent him from falling. He states that he did not lose consciousness. This has been happening to him recently. He tells me that his Lasix dose was recently doubled. He denies any nausea/vomiting/diarrhea. He denies swelling in his ankles. Denies SOB. He is very alert and appropriate at the time of my exam and he is lying in bed in NAD. Vital signs of presentation to the emergency room were temperature 97.9, pulse rate 76, blood pressure 114/55, respiratory rate 16 and he was 95% saturated on room air. Orthostatics showed a blood pressure lying down of 114/71, blood pressure sitting was 98/61 and the blood pressure standing was 90/60 with a change in the systolic blood pressure of 24 when going from lying to standing. CBC is unremarkable. The BMP shows a increased serum bicarb at 33 and an increased BUN at 52 with a creatinine of 2.82, up from 2.04 on 02/10/2019. The BNP is 495. Troponin is less than 0.015. Chest x-ray shows no infiltrates, pleural effusions or significant pulmonary vascular congestion. EKG showed normal sinus rhythm with a first-degree AV block and no suspicious ST or T wave changes. He is being admitted to PCU with a diagnosis of Acute renal failure on CRF stage 3 more likely than not due to dehydration. Past Medical History Past Medical History (Chronic Problems): Chronic Problems (Last Reviewed 03/25/19 @ 20:56 by Aurelia Nicole DO) Acute renal failure superimposed on stage 3 chronic kidney disease (Chronic) 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 History of appendectomy (Chronic) Presence of coronary angioplasty implant and graft (Chronic ~09/23/06) PTCA and stenting of the LAD and diagonal 09/23/2006 Abnormal echocardiogram (Chronic) Mixed hyperlipidemia (Chronic) Atherosclerotic heart disease of [place] coronary artery without angina pectoris (Chronic) Essential hypertension (Chronic) Mixed sleep apnea (Chronic) BiPAP 17/11 mm of water with a backup rate of 12 Hypersomnolence disorder (Chronic) Dilated cardiomyopathy (Chronic) 15% EF Paroxysmal ventricular tachycardia (Chronic) Abnormal result of cardiovascular function study, unspecified (Chronic) 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) Implant: 06/2000; Generator change: 03/17/2008 Hypothyroidism, iatrogenic (Chronic) Atherosclerosis of [place] arteries of extremity with intermittent claudication (Chronic) Chronic renal failure, stage 3 (moderate) (Chronic) Diabetes mellitus type 2 in nonobese (Chronic) Sustained ventricular tachycardia (Chronic) Hypothyroidism (Chronic) Cardiomyopathy (Chronic) Medical History: Medical History (Last Reviewed 03/25/19 @ 20:56 by Aurelia Nicole DO) History of left heart catheterization (LHC) (Resolved) Onset Date: ~01/05/19 Z98.890 LEFT MAIN: distal: eccentric: 25 % Stenosis; LEFT ANTERIOR DESCENDING ARTERY: PROX LAD: Previously placed stent is patent with minimal luminal irregularities, MID LAD: Mild luminal irregularities, 25 % Stenosis, DISTAL LAD: Mild luminal irregularities; DIAGONAL 1: Proximal - Previously placed stent is patent with minimal luminal irregularities; CIRCUMFLEX ARTERY: PROX CIRC: Previously placed stent is patent with minimal luminal irregularities OM 2: Mid - Mild luminal irregularities, RIGHT CORONARY ARTERY: Mild luminal irregularities, PROX RCA: diffuse: eccentric: 25 % Stenosis, MID RCA: eccentric: 25 - 50 % Stenosis, DISTAL RCA: diffuse: eccentric: 10 - 25 % Stenosis; RT PDA: Proximal - Mild luminal irregularities per cath 01/05/19 Mixed hyperlipidemia (Chronic) E78.2 Atherosclerotic heart disease of [place] coronary artery without angina pectoris (Chronic) I25.10 Essential hypertension (Chronic) I10 Dilated cardiomyopathy (Chronic) I42.0 15% EF Paroxysmal ventricular tachycardia (Chronic) I47.2 Abnormal result of cardiovascular function study, unspecified (Chronic) R94.30 Hypothyroidism, iatrogenic (Chronic) E03.2 Atherosclerosis of [place] arteries of extremity with intermittent claudication (Chronic) I70.219 Chronic renal failure, stage 3 (moderate) (Chronic) N18.3 Diabetes mellitus type 2 in nonobese (Chronic) E11.9 Sustained ventricular tachycardia (Chronic) I47.2 Hypothyroidism (Chronic) E03.9 Cardiomyopathy (Chronic) I42.9 Fatigue (Resolved) R53.83 Myalgia (Resolved) M79.1 Allergies atorvastatin [From Lipitor] Adverse Reaction (Verified 03/11/19 10:41) myalgia leflunomide [From Arava] Adverse Reaction (Verified 03/11/19 10:41) PROBLEMS WITH MY FEET simvastatin [From Zocor] Adverse Reaction (Verified 03/11/19 10:41) myalgia Home Medications: Ambulatory Orders Medication Instructions Recorded Aspirin 325 mg PO DAILY@199905/22/16 Colchicine 0.6 mg PO DAILY 05/22/16 Finasteride [Proscar] 5 mg PO DAILY 05/22/16 Levothyroxine [Synthroid] 50 mcg PO DAILY 05/22/16 Tamsulosin HCl [Flomax] 0.4 mg PO DAILY 05/22/16 hydroxychloroquine 200 mg tablet 200 mg PO DAILY tab 11/10/17 tramadol 50 mg tablet 50 mg PO QHS PRN PRN tab 11/10/17 nitroglycerin 0.4 mg sublingual 0.4 mg SUBLINGUAL Q5-15M PRN #25 11/16/18 tablet tab Furosemide 40 mg PO BID #60 tab 02/10/19 Prednisone 5 mg PO DAILY #0 02/10/19 Amiodarone HCl 200 mg PO DAILY 03/25/19 Carvedilol 6.25 mg PO BID 03/25/19 Clopidogrel Bisulfate [Plavix] 75 mg PO DAILY 03/25/19 Pravastatin Sodium 20 mg PO QODAY 03/25/19 Surgical History: Surgical History (Last Reviewed 03/25/19 @ 20:56 by Aurelia Nicole DO) History of appendectomy (Chronic) Z98.890, Z90.49 Presence of coronary angioplasty implant and graft (Chronic) Onset Date: ~09/23/06 Z95.5 PTCA and stenting of the LAD and diagonal 09/23/2006 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) Z95.810 Implant: 06/2000; Generator change: 03/17/2008 Surgical History: angioplasty, appendectomy, - - AICD, appendectomy, PCI. Psychiatric History: No pertinent psych hx Lives: With Family Smoking Status: Former smoker Tobacco Use: Non-smoker, Cigarettes Alcohol: None Drugs: None - *Family History Paternal Family History: Family History (Last Reviewed 03/25/19 @ 20:56 by Aurelia Nicole DO) Mother Alzheimers disease Brother Cancer Brother Hypertension Brother CAD (coronary artery disease) Sister CAD (coronary artery disease) Sister Breast cancer History Items: Pulmonary Disease - emphysema, s/p lobectomy Maternal Family History: Family History (Last Reviewed 03/25/19 @ 20:56 by Aurelia Nicole DO) Mother Alzheimers disease Brother Cancer Brother Hypertension Brother CAD (coronary artery disease) Sister CAD (coronary artery disease) Sister Breast cancer History Items: Dementia, Heart Disease Sibling Family History: Family History (Last Reviewed 03/25/19 @ 20:56 by Aurelia Nicole DO) Mother Alzheimers disease Brother Cancer Brother Hypertension Brother CAD (coronary artery disease) Sister CAD (coronary artery disease) Sister Breast cancer History Items: Heart Disease Offspring Family History: Family History (Last Reviewed 03/25/19 @ 20:56 by Aurelia Nicole DO) Mother Alzheimers disease Brother Cancer Brother Hypertension Brother CAD (coronary artery disease) Sister CAD (coronary artery disease) Sister Breast cancer History Items: No pertinent history Review of Systems Constitutional: Reports: Weakness. Denies: Anorexia, Chills, Fever, Weight Change HEENT: Reports: Difficulty Hearing - He has bilateral hearing aids. Denies: Head Aches, Sinus Congestion, Sinus Drainage, Sore Throat Cardiovascular: Reports: Light Headedness. Denies: Chest Pain, Edema, Heaviness, Orthopnea, Palpitations, Syncope Respiratory: Denies: Cough, Shortness of Breath, Shortness of breath at rest, Sputum production Gastrointestinal: Denies: Abdominal Pain, Diarrhea, Nausea, Vomiting Genitourinary: Denies: Dysuria Musculoskeletal: Reports: Joint Tenderness - Chronic tenderness in multiple joints. Denies: Joint Pain Skin: Denies: Jaundice, Rash, Wounds Neurological: Denies: Blurred vision, Change in Speech, Confusion, Difficulty swallowing, Focal weakness, Headaches, Numbness, Tingling, Seizures Psychiatric: Denies: Anxiety, Depression, Homicidal Ideations, Suicidal Ideations Hematologic/ Lymphatic: Denies: Easy Bruising, Easy Bleeding, Hx of blood clot VTE Information - Inpt Only VTE Present on Admission: No VTE Mechan Device Prophylaxis: Knee High MAN Hose VTE Pharm Prophylaxis ordered?: Yes Patient Problems: Active and Suspected Problems (Last Reviewed 03/25/19 @ 20:56 by Aurelia Nicole DO) Near syncope (Acute) Dehydration (Acute) - Physical Exam Vitals/I&O's: Vital Signs Temp Pulse Resp BP Pulse Ox 97.7 F L 69 15 119/71 97 03/25/19 19:44 03/25/19 19:46 03/25/19 19:44 03/25/19 19:46 03/25/19 19:44 Oxygen Delivery Method Room Air Weight: 184 lb 11.958 oz Body Mass Index (BMI) 25.7 Orthostatic Vital Signs Start: 03/25/19 19:46 Freq: q24h Status: Active Protocol: Activity Type Activity Date Activity User E-Sign Co-Sign Detail Recorded Client Recorded Date Recorded By Document 03/25/19 19:46 ZRAA [id number] 03/25/19 19:50 ZARA 03/25/19 19:46 Orthostatic Vitals Standing -Blood Pressure (90/60-120/80 mm Hg) 88/59 L -Extremity Use Left Arm -Pulse Rate (60-100 beats/min) 77 Sitting -Blood Pressure (90/60-120/80 mm Hg) 106/62 -Extremity Use Left Arm -Pulse Rate (60-100 beats/min) 75 Lying -Blood Pressure (90/60-120/80 mm Hg) 119/71 -Extremity Use Left Arm -Pulse Rate (60-100 beats/min) 69 Intake and Output for Last 24 Hours 03/23/19 03/24/19 03/25/19 23:59 23:59 23:59 Intake Total 1000 / 1000 Balance 1000 / 1000 General: Alert, Oriented x3, Cooperative, No apparent distress, Well developed, Well nourished HEENT: Atraumatic, PERRLA, EOMI, Normocephalic Oral: Dry Mucosa Neck: Supple, No Nodes, Trachea Midline Lungs: Rales - in the right base, no wheezing, no Rhonchi. He is not tachypniec and he has no conversational dyspnea or accessory muscle use Cardiovascular: Regular rate, Regular Rhythm, Normal S1, Normal S2, - - Heart sounds are very distant difficulty here in the emergency department Abdomen: Bowel Sounds Present, Soft, Non Tender, Non-Distended, - - No guarding with palpation Extremities: No cyanosis, No edema, No Calf Tenderness, Diminished Peripheral Pulses Skin: No rashes, No breakdown Neurological: Cranial nerves II-XII grossly intact, Neuro grossly intact Psych/Mental Status: Normal Affect, Appropriate Laboratory Results 03/25/19 17:18: WBC 5.9, RBC 4.66, Hgb 14.2, Hct 44.0, MCV 94.4 H, MCH 30.5, MCHC 32.3, RDW Std Deviation 55.4 H, RDW Coeff of [place] 16.0 H, Plt Count 170, MPV 9.0, Immature Gran % (Auto) 0.500, Neut % (Auto) 73.4 H, Lymph % (Auto) 16.0 L, [place] % (Auto) 9.3, Eos % (Auto) 0.5, Baso % (Auto) 0.3, Absolute Neuts (auto) 4.4, Absolute Lymphs (auto) 0.95, Nucleated RBC % 0 03/25/19 17:18: Sodium 136, Potassium 4.2, Chloride 96 L, Carbon Dioxide 33.0 H, Anion Gap 7, BUN 52 H, Creatinine 2.82 H, Estim Creat Clear Calc 21.14, Est GFR (MDRD) Af Amer 28 L, Est GFR (MDRD) Non-Af 23 L, BUN/Creatinine Ratio 18.4, Glucose 103, Calcium 9.6, Troponin I < 0.015 03/25/19 17:18: B-Natriuretic Peptide 495.6 H Current Medications Acetaminophen (Tylenol) 650 mg PO Q6H PRN PRN PRN Reason: Pain Score 1-3/Temp > 100.7 F Al Hydroxide/Mg Hydroxide (Mylanta Ii) 30 ml PO Q6H PRN PRN PRN Reason: Gastric Burning Amiodarone HCl (Cordarone) 200 mg PO DAILY [facility] Aspirin (Aspirin) 325 mg PO DAILY@2000 [facility] Carvedilol (Coreg) 6.25 mg PO BID [facility] Clopidogrel Bisulfate (Plavix) 75 mg PO DAILY [facility] Finasteride (Proscar) 5 mg PO DAILY [facility] Heparin Sodium (Porcine) (Heparin Na) 5,000 unit SC Q12 [facility] Hydroxychloroquine [facility]ate ([facility]) [facility] Levothyroxine Sodium (Synthroid) 50 mcg PO DAILY@0600 [facility] Melatonin (Melatonin) 3 mg PO QHS PRN PRN PRN Reason: INSOMNIA Nitroglycerin (Nitrostat) 0.4 mg SUBLINGUAL Q5M PRN PRN Reason: cardiac/chest pain Pravastatin Sodium (Pravachol) 20 mg PO QODAY@2200 [facility] Prednisone () 5 mg PO DAILY [facility] Prochlorperazine Edisylate (Compazine Iv) 5 mg IV Q4H PRN PRN PRN Reason: Breakthrough Nausea/Vomiting Senna/Docusate Sodium (Senokot-S, Alison-Colace) 2 tablet PO BID PRN PRN PRN Reason: Constipation Sodium Chloride () 10 - 40 ml IV UD PRN PRN Reason: SALINE FLUSH Tamsulosin HCl (Flomax) 0.4 mg PO DAILY@0830 NELI Tramadol HCl (Ultram) 50 mg PO QHS PRN PRN PRN Reason: Pain Score 1-1010 Assessment/Plan All Active Problems (Last Reviewed 03/25/19 @ 20:56 by Aurelia Nicole, DO) Near syncope (Acute) Dehydration (Acute) History of left heart catheterization (LHC) (Resolved ~01/05/19) Acute on chronic combined systolic and diastolic heart failure (Resolved) Chest pain (Resolved) Fatigue (Resolved) Hypoxia (Resolved) Myalgia (Resolved) Impressions 1. Acute renal failure on chronic renal failure stage III more likely than not secondary to intravascular volume depletion-likely related to recent increase in his diuretics. Patient does not monitor his fluid intake at home. 2. Orthostatic hypotension with near syncope when standing and walking a few steps tonight 3. Severe cardiomyopathy with a 15% ejection fraction 4. Chronic systolic congestive heart failure 5. Mild metabolic alkalosis-likely secondary to contraction alkalosis Chronic medical conditions-essential hypertension/coronary artery disease/history of PTCA with DINH/hyperlipidemia/sleep apnea/hypersomnolence disorder/paroxysmal ventricular tachycardia/status post AICD placement/hypothyroidism/chronic renal failure stage III/diabetes mellitus type 2 -complicate care, management and prognosis Admit to PCU Daily weights He already received 1 L of normal saline in the emergency department and has a few crackles in his right base. Encouraged increased fluid intake. Hold diuretics for now Recheck orthostatics in the a.m. Recheck lab in the a.m. 1500 cc fluid restriction going forward Pt will weigh himself daily at home Code Visit Inpatient E&M: 56916 Init Hosp L2
[2019-03-25] MEDS: Heparin Injection (Vial) 5,000 UNIT/ML VIAL 5000 UNIT SC (21:22)
[2019-03-25] MEDS: Carvedilol 6.25 MG Tablet PO (21:22)
[2019-03-25] MEDS: Aspirin 325 MG Tablet PO (21:22)
[2019-03-26] VITALS (11 sets, daily range): BP systolic 74–126; BP diastolic 43–72; PULSE 63–77; RESP 16–18; TEMP 36.2–36.9; O2SAT 92–98
[2019-03-26] MEDS: Levothyroxine 50 MCG Tablet PO (05:22)
[2019-03-26 06:43] LABS: ALB/GLOB Ratio 0.8 RATIO (0.9-2.4); AST(SGOT) 29 U/L (15-37); Alanine Aminotransfer ALT/SGPT 33 U/L (16-61); Albumin, Serum 3.2 g/dL (3.2-5.0); Alkaline Phosphatase 72 U/L (45-117); Anion Gap 7 (5-15); BUN 46 mg/dL (7-18); BUN/Creat Ratio 18.3 RATIO (10-20); Calcium,Total 9.3 mg/dL (8.5-10.1); Chloride 102 mmol/L (98-107); Creatinine, Serum 2.52 mg/dL (0.70-1.30); EST Glomerular Filtration Rate 26 mL/min (>60); Est Glom Filt Rate - Afr Amer 32 mL/min (>60); Estimated Creatinine Clearance 23.66 ml/min; Globulin 3.9 g/dL (2.2-4.2); Glucose 82 mg/dL (74-106); Magnesium 2.7 mg/dL (1.6-2.6); Phosphorus 3.3 mg/dL (2.5-4.9); Potassium 3.4 mmol/L (3.5-5.1); Protein, Total 7.1 g/dL (6.4-8.2); Sodium Level 138 mmol/L (136-145)
[2019-03-26] MEDS: Hydroxychloroquine 200 MG Tablet PO (10:02)
[2019-03-26] MEDS: Tamsulosin HCl 0.4 MG Capsule PO (10:02)
[2019-03-26] MEDS: Clopidogrel Bisulfate 75 MG Tablet PO (10:03)
[2019-03-26] MEDS: Amiodarone 200 MG Tablet PO (10:03)
[2019-03-26] MEDS: Carvedilol 6.25 MG Tablet PO ×2 (10:03→21:17)
[2019-03-26] MEDS: Finasteride 5 MG Tablet PO (10:03)
[2019-03-26] MEDS: Heparin Injection (Vial) 5,000 UNIT/ML VIAL 5000 UNIT SC ×2 (10:03→21:17)
--- NOTE | 2019-03-26 11:20 | CASEMGMT ---
RN CM [employer]O ELECTRICAL TECHNICIAN CM to room to meet with patient for initial transition planning/care coordination assessment. RN ANUM introduced self and role at [facility]. Pt voices understanding and consents to assessment at this time. Pt resting in bed in no distress at this time. Daughter, Rupal, @ bedside. Pt is A/O at this time and answers all questions appropriately. Care providers, pharmacy, and demographics verified/updated at this time. PCP: Dr Miguel Pineda. Specialists: Dr Caceres--cardiology. Sees a cokeman @ [facility] but does not remember name. Preferred Pharmacy: [facility] Insurance: MCR, [employer] Prescription Benefit: yes Living Will/HPOA: Has both LW and Healthcare POA, who is his , Silva. Made aware copies are not found on file @ [facility]. LNOK: , Silva. Living Arrangements: Lives with his in 2-story home. [employer]. Independent with ADL's. Shares home mgmt tasks w/. Transportation: Pt states drives self and states no transportation concerns at this time. also drives. DME: States has the following DME: shower chair, rails/grab bars, hand held shower, CPAP, nebulizer, Glucometer, cane (occasionally uses) Pt states no need for further DME at this time. HHC/SNF: No history of either. Denies needs. Discussed option of OP PT/OT. Pt states he does not feel he needs at this time. Made aware, that if in the future, he feels he would benefit from OP therapy, to discuss this with his PCP. Pt voices understanding. Pt wishes to return home and states has no concerns with going home at time of discharge. CM to follow for any discharge planning/needs. Pt/daughter voice no concerns/needs at this time. Advised them to ask for CM if any questions/concerns/needs arise. They voice understanding. PLAN: Home Chente PA RN, CM
[2019-03-26] MEDS: predniSONE 5 MG Tablet PO (12:06)
--- NOTE | 2019-03-26 13:24 | PN_ITS ---
<Krystina Jones - Last Filed: 03/26/19 13:32> Patient Problems: Active and Suspected Problems (Last Reviewed 03/25/19 @ 20:56 by Aurelia Nicole DO) Near syncope (Acute) Dehydration (Acute) Subjective: Patient seen and examined. Denies dizziness, lightheadedness. Continues to report generalized weakness. - Physical Exam Vitals/I&O's: Vital Signs Temp Pulse Resp BP Pulse Ox 97.2 F L 69 16 98/63 97 03/26/19 10:01 03/26/19 11:22 03/26/19 10:01 03/26/19 10:01 03/26/19 10:01 Oxygen Delivery Method Room Air Weight: 180 lb 12.465 oz Body Mass Index (BMI) 25.7 Orthostatic Vital Signs Start: 03/25/19 19:46 Freq: 0600 Status: Active Protocol: Activity Type Activity Date Activity User E-Sign Co-Sign Detail Recorded Client Recorded Date Recorded By Document 03/26/19 05:23 ZARA [id number] 03/26/19 05:29 ZARA 03/26/19 05:23 Orthostatic Vitals Standing -Blood Pressure (90/60-120/80 mm Hg) 74/43 L -Extremity Use Left Arm -Pulse Rate (60-100 beats/min) 71 Sitting -Blood Pressure (90/60-120/80 mm Hg) 98/61 -Extremity Use Left Arm -Pulse Rate (60-100 beats/min) 68 Lying -Blood Pressure (90/60-120/80 mm Hg) 113/70 -Extremity Use Left Arm -Pulse Rate (60-100 beats/min) 69 Intake and Output for Last 24 Hours 03/24/19 03/25/19 03/26/19 23:59 23:59 23:59 Intake Total 1320 / 1320 240 / 240 Output Total 200 / 200 300 / 300 Balance 1120 / 1120 -60 / -60 General: Alert, Oriented x3, Cooperative HEENT: Atraumatic, PERRLA, EOMI, Normocephalic Neck: Supple, No JVD, Negative Carotid Bruits Lungs: Clear to auscultation, Normal air movement Cardiovascular: Regular rate, Regular Rhythm, Normal S1, Normal S2, No murmurs Abdomen: Bowel Sounds Present, Soft, Non Tender, Non-Distended Extremities: No clubbing, No cyanosis, No edema, Capillary Refill Less than 3 Seconds Skin: No rashes, No breakdown Musculoskeletal: No Tenderness to Palpation of Joints or Extremities Neurological: Cranial nerves II-XII grossly intact, Neuro grossly intact Psych/Mental Status: Normal Affect, Appropriate Laboratory Results 03/25/19 17:18: WBC 5.9, RBC 4.66, Hgb 14.2, Hct 44.0, MCV 94.4 H, MCH 30.5, MCHC 32.3, RDW Std Deviation 55.4 H, RDW Coeff of Arcelia 16.0 H, Plt Count 170, MPV 9.0, Immature Gran % (Auto) 0.500, Neut % (Auto) 73.4 H, Lymph % (Auto) 16.0 L, [place] % (Auto) 9.3, Eos % (Auto) 0.5, Baso % (Auto) 0.3, Absolute Neuts (auto) 4.4, Absolute Lymphs (auto) 0.95, Nucleated RBC % 0 03/25/19 17:18: Sodium 136, Potassium 4.2, Chloride 96 L, Carbon Dioxide 33.0 H, Anion Gap 7, BUN 52 H, Creatinine 2.82 H, Estim Creat Clear Calc 21.14, Est GFR (MDRD) Af Amer 28 L, Est GFR (MDRD) Non-Af 23 L, BUN/Creatinine Ratio 18.4, Glucose 103, Calcium 9.6, Troponin I < 0.015 03/25/19 17:18: B-Natriuretic Peptide 495.6 H 03/26/19 05:54: Sodium 138, Potassium 3.4 L, Chloride 102, Carbon Dioxide 29.0, Anion Gap 7, BUN 46 H, Creatinine 2.52 H, Estim Creat Clear Calc 23.66, Est GFR (MDRD) Af Amer 32 L, Est GFR (MDRD) Non-Af 26 L, BUN/Creatinine Ratio 18.3, Glucose 82, Calcium 9.3, Phosphorus 3.3, Magnesium 2.7 H, Total Bilirubin 1.00, AST 29, ALT 33, Alkaline Phosphatase 72, Total Protein 7.1, Albumin 3.2, Globulin 3.9, Albumin/Globulin Ratio 0.8 L Current Medications Acetaminophen (Tylenol) 650 mg PO Q6H PRN PRN PRN Reason: Pain Score 1-3/Temp > 100.7 F Al Hydroxide/Mg Hydroxide (Mylanta Ii) 30 ml PO Q6H PRN PRN PRN Reason: Gastric Burning Amiodarone HCl (Cordarone) 200 mg PO DAILY [facility] Last Admin: 03/26/19 10:03 Dose: 200 mg Documented by: Aspirin (Aspirin) 325 mg PO DAILY@2000 [facility] Last Admin: 03/25/19 21:22 Dose: 325 mg Documented by: Carvedilol (Coreg) 6.25 mg PO BID [facility] Last Admin: 03/26/19 10:03 Dose: 6.25 mg Documented by: Clopidogrel Bisulfate (Plavix) 75 mg PO DAILY [facility] Last Admin: 03/26/19 10:03 Dose: 75 mg Documented by: Finasteride (Proscar) 5 mg PO DAILY [facility] Last Admin: 03/26/19 10:03 Dose: 5 mg Documented by: Heparin Sodium (Porcine) (Heparin Na) 5,000 unit SC Q12 [facility] Last Admin: 03/26/19 10:03 Dose: 5,000 unit Documented by: Hydroxychloroquine [facility]) [facility] Last Admin: 03/26/19 10:02 Dose: 200 mg Documented by: Sodium Chloride () 500 mls @ 999 mls/hr IV .Q31M ONE Stop: 03/26/19 13:40 Levothyroxine Sodium (Synthroid) 50 mcg PO DAILY@0600 [facility] Last Admin: 03/26/19 05:22 Dose: 50 mcg Documented by: Melatonin (Melatonin) 3 mg PO QHS PRN PRN PRN Reason: INSOMNIA Nitroglycerin (Nitrostat) 0.4 mg SUBLINGUAL Q5M PRN PRN Reason: cardiac/chest pain Pravastatin Sodium (Pravachol) 20 mg PO QODAY@2200 [facility] Pred[facility]one () [facility] Last Admin: 03/26/19 12:06 Dose: 5 mg Documented by: Prochlorperazine Edisylate (Compazine Iv) 5 mg IV Q4H PRN PRN PRN Reason: Breakthrough Nausea/Vomiting Senna/Docusate Sodium (Senokot-S, Alison-Colace) 2 tablet PO BID PRN PRN PRN Reason: Constipation Sodium Chloride () 10 - 40 ml IV UD PRN PRN Reason: SALINE FLUSH Tamsulosin HCl (Flomax) 0.4 mg PO DAILY@0830 [facility] Last Admin: 03/26/19 10:02 Dose: 0.4 mg Documented by: Tramadol HCl (Ultram) 50 mg PO QHS PRN PRN PRN Reason: Pain Score 1-10/10 Medical Necessity - Tobacco Use Smoking Status: Former smoker Tobacco Use: Non-smoker, Cigarettes Assessment/Plan All Active Problems (Last Reviewed 03/25/19 @ 20:56 by Aurelia Nicole DO) Near syncope (Acute) Dehydration (Acute) History of left heart catheterization (LHC) (Resolved ~01/05/19) Acute on chronic combined systolic and diastolic heart failure (Resolved) Chest pain (Resolved) Fatigue (Resolved) Hypoxia (Resolved) Myalgia (Resolved) 1. Acute kidney injury on chronic kidney disease stage III-improving. Gentle IV fluids, trend BMP. Recent renal ultrasound January 2019 demonstrated bilateral renal cortical atrophy, no obstruction or stones. Lasix regimen recently increased. Currently on hold. 2. Orthostatic hypotension-IV fluids, repeat orthostatic vitals this afternoon. 3. CAD status post PCI-continue aspirin, Plavix, carvedilol. 4. Ischemic cardiomyopathy with EF 15%-status post AICD. Continue aspirin, Plavix, statin, carvedilol. Echo November 2018 demonstrated EF 15%. 5. Type 2 diabetes mellitus-diet controlled. 6. Hypertension-stable, continue home Coreg and Lasix regimen. 7. Hyperlipidemia-continue statin. 8. Hypothyroidism-continue Synthroid regimen. 9. Inflammatory arthritis-continue Plaquenil, low-dose steroid. 10. BPH-continue Flomax, Proscar. 11. KENAN-continue home BiPAP regimen. DVT prophylaxis-heparin subcu This patient was seen by RONA Giordano under the supervision of Dr. Pacheco. <Giovanny Pacheco - Last Filed: 03/26/19 15:41> Subjective: Seen and examined. Patient's daughter present in the room. Patient reported he felt dizzy and lightheaded on walking and near fall situation. Most likely secondary to overdiuresis as patient also felt thirsty. - Physical Exam Vitals/I&O's: Vital Signs Temp Pulse Resp BP Pulse Ox 97.8 F 67 17 110/72 98 03/26/19 14:35 03/26/19 15:10 03/26/19 14:35 03/26/19 14:35 03/26/19 14:35 Oxygen Delivery Method Room Air Weight: 180 lb 12.465 oz Body Mass Index (BMI) 25.7 Orthostatic Vital Signs Start: 03/25/19 19:46 Freq: 0600 Status: Active Protocol: Activity Type Activity Date Activity User E-Sign Co-Sign Detail Recorded Client Recorded Date Recorded By Document 03/26/19 14:35 [facility] [id number] 03/26/19 14:41 [facility] 03/26/19 14:35 Orthostatic Vitals Standing -Blood Pressure (90/60-120/80) 83/56 L -Extremity Use Right Arm -Pulse Rate (60-100) 77 Sitting -Blood Pressure (90/60-120/80) 126/52 H -Extremity Use Right Arm -Pulse Rate (60-100) 71 Lying -Blood Pressure (90/60-120/80) 110/72 -Extremity Use Right Arm -Pulse Rate (60-100) 68 Intake and Output for Last 24 Hours 03/24/19 03/25/19 03/26/19 23:59 23:59 23:59 Intake Total 1320 / 1320 1200 / 1200 Output Total 200 / 200 450 / 450 Balance 1120 / 1120 750 / 750 General: Alert, Oriented x3, Cooperative HEENT: Atraumatic, PERRLA, EOMI, Normocephalic Neck: Supple, No JVD, Negative Carotid Bruits Lungs: Clear to auscultation, Normal air movement, No rhonchi, No wheeze, No rales Cardiovascular: Regular rate, Regular Rhythm, Normal S1, Normal S2, No murmurs Abdomen: Bowel Sounds Present, Soft, Non Tender, Non-Distended Extremities: No edema, Capillary Refill Less than 3 Seconds Skin: No rashes, No breakdown Musculoskeletal: No Tenderness to Palpation of Joints or Extremities, Arthritic Changes Lymphatic: No Cervical, Supraclavicular, or Inguinal Adenopathy Neurological: Cranial nerves II-XII grossly intact, Deep Tendon Reflexes 2+/4 and Symmetrical, Neuro grossly intact Psych/Mental Status: Normal Affect, Appropriate Laboratory Results 03/25/19 17:18: WBC 5.9, RBC 4.66, Hgb 14.2, Hct 44.0, MCV 94.4 H, MCH 30.5, MCHC 32.3, RDW Std Deviation 55.4 H, RDW Coeff of Arcelia 16.0 H, Plt Count 170, MPV 9.0, Immature Gran % (Auto) 0.500, Neut % (Auto) 73.4 H, Lymph % (Auto) 16.0 L, [place] % (Auto) 9.3, Eos % (Auto) 0.5, Baso % (Auto) 0.3, Absolute Neuts (auto) 4.4, Absolute Lymphs (auto) 0.95, Nucleated RBC % 0 03/25/19 17:18: Sodium 136, Potassium 4.2, Chloride 96 L, Carbon Dioxide 33.0 H, Anion Gap 7, BUN 52 H, Creatinine 2.82 H, Estim Creat Clear Calc 21.14, Est GFR (MDRD) Af Amer 28 L, Est GFR (MDRD) Non-Af 23 L, BUN/Creatinine Ratio 18.4, Glucose 103, Calcium 9.6, Troponin I < 0.015 03/25/19 17:18: B-Natriuretic Peptide 495.6 H 03/26/19 05:54: Sodium 138, Potassium 3.4 L, Chloride 102, Carbon Dioxide 29.0, Anion Gap 7, BUN 46 H, Creatinine 2.52 H, Estim Creat Clear Calc 23.66, Est GFR (MDRD) Af Amer 32 L, Est GFR (MDRD) Non-Af 26 L, BUN/Creatinine Ratio 18.3, Glucose 82, Calcium 9.3, Phosphorus 3.3, Magnesium 2.7 H, Total Bilirubin 1.00, AST 29, ALT 33, Alkaline Phosphatase 72, Total Protein 7.1, Albumin 3.2, Globulin 3.9, Albumin/Globulin Ratio 0.8 L Current Medications Acetaminophen (Tylenol) 650 mg PO Q6H PRN PRN PRN Reason: Pain Score 1-3/Temp > 100.7 F Al Hydroxide/Mg Hydroxide (Mylanta Ii) 30 ml PO Q6H PRN PRN PRN Reason: Gastric Burning Amiodarone HCl (Cordarone) 200 mg PO DAILY [facility] Last Admin: 03/26/19 10:03 Dose: 200 mg Documented by: Aspirin (Aspirin) 325 mg PO DAILY@1999 [facility] Last Admin: 03/25/19 21:22 Dose: 325 mg Documented by: Carvedilol (Coreg) 6.25 mg PO BID [facility] Last Admin: 03/26/19 10:03 Dose: 6.25 mg Documented by: Clopidogrel Bisulfate (Plavix) 75 mg PO DAILY [facility] Last Admin: 03/26/19 10:03 Dose: 75 mg Documented by: Finasteride (Proscar) 5 mg PO DAILY [facility] Last Admin: 03/26/19 10:03 Dose: 5 mg Documented by: Heparin Sodium (Porcine) (Heparin Na) 5,000 unit SC Q12 [facility] Last Admin: 03/26/19 10:03 Dose: 5,000 unit Documented by: Hydroxychloroquine Sulfate ([facility]enil) [facility] Last Admin: 03/26/19 10:02 Dose: 200 mg Documented by: Sodium Chloride () 1,000 mls @ 75 mls/hr IV .[id number] [facility] Levothyroxine Sodium (Synthroid) 50 mcg PO DAILY@0600 [facility] Last Admin: 03/26/19 05:22 Dose: 50 mcg Documented by: Melatonin (Melatonin) 3 mg PO QHS PRN PRN PRN Reason: INSOMNIA Nitroglycerin (Nitrostat) 0.4 mg SUBLINGUAL Q5M PRN PRN Reason: cardiac/chest pain Pravastatin Sodium (Pravachol) 20 mg PO QODAY@2200 [facility] Prednisone () [facility] Last Admin: 03/26/19 12:06 Dose: 5 mg Documented by: Prochlorperazine Edisylate (Compazine Iv) 5 mg IV Q4H PRN PRN PRN Reason: Breakthrough Nausea/Vomiting Senna/Docusate Sodium (Senokot-S, Alison-Colace) 2 tablet PO BID PRN PRN PRN Reason: Constipation Sodium Chloride () 10 - 40 ml IV UD PRN PRN Reason: SALINE FLUSH Last Admin: 03/26/19 13:57 Dose: 10 ml Documented by: Tamsulosin HCl (Flomax) 0.4 mg PO DAILY@0830 [facility] Last Admin: 03/26/19 10:02 Dose: 0.4 mg Documented by: Tramadol HCl (Ultram) 50 mg PO QHS PRN PRN PRN Reason: Pain Score 1-10/10 Assessment/Plan This patient was seen in conjunction with Krystina VARGAS. I have independently interviewed and examined the patient and reviewed pertinent history, examination findings, laboratory and plan of management. I have reviewed the note and agree with the documented findings with the few additional points. In brief, patient is admitted for near syncope, near fall situation mostly secondary to overdiuresis. Patient IV fluid. Orthostatic signs were positive, blood pressure dropped from 110/72, heart rate 68-80 3/56, 77 understanding. IV fluid normal saline. Diuretic on hold. Acute kidney injury on CKD stage III secondary to overdiuresis. Renal ultrasound in February 21 showed bilateral renal cortical atrophy but no obstructive uropathy. Chronic systolic heart failure, ischemic cardiomyopathy with EF 15 per status post AICD Rest of the comorbidities as mentioned above. Type 2 diabetes mellitus. Diet controlled. Glucoses 82 mg/dL in BMP. I have discussed my assessment with G[employer] CHECK PAD MAKERKrystina and orders have been reviewed. Code Visit Inpatient E&M: 00543 Subs Hosp L2
--- NOTE | 2019-03-26 13:45 | CASEMGMT ---
LW/POA forms not on file here. SW spoke w/pt, let him know the documents are not on file, asked him to bring them in as able. Pt states understanding. DIAZ Salcedo
[2019-03-26] MEDS: 0.9% Saline Lock 10 ML Syringe IV ×2 (13:57→17:09)
[2019-03-26] MEDS: 0.9% Normal Saline 1,000 ML 75 ML IV ×2 (17:09→23:42)
[2019-03-26] MEDS: Aspirin 325 MG Tablet PO (21:17)
[2019-03-27 02:58] VITALS: PULSE 61
[2019-03-27 03:20] VITALS: BP 101/49; BP 105/54; BP 84/52; PULSE 63; PULSE 67; PULSE 70; RESP 18; TEMP 36.5; O2SAT 95
[2019-03-27] MEDS: Levothyroxine 50 MCG Tablet PO (05:01)
[2019-03-27] MEDS: 0.9% Normal Saline 1,000 ML 75 ML IV (05:33)
[2019-03-27 07:18] LABS: BUN 37 mg/dL (7-18); EST Glomerular Filtration Rate 31 mL/min (>60); Glucose 94 mg/dL (74-106)
[2019-03-27 07:19] LABS: Anion Gap 3 (5-15); BUN/Creat Ratio 16.8 RATIO (10-20); Calcium,Total 8.7 mg/dL (8.5-10.1); Chloride 109 mmol/L (98-107); Est Glom Filt Rate - Afr Amer 37 mL/min (>60); Potassium 4.2 mmol/L (3.5-5.1); Sodium Level 142 mmol/L (136-145)
[2019-03-27 08:02] VITALS: O2SAT 95
[2019-03-27 09:20] VITALS: BP 120/56; PULSE 60; RESP 16; TEMP 36.6; O2SAT 97
[2019-03-27] MEDS: predniSONE 5 MG Tablet PO (09:27)
[2019-03-27] MEDS: Amiodarone 200 MG Tablet PO (09:27)
[2019-03-27] MEDS: Hydroxychloroquine 200 MG Tablet PO (09:27)
[2019-03-27] MEDS: Tamsulosin HCl 0.4 MG Capsule PO (09:27)
[2019-03-27] MEDS: Finasteride 5 MG Tablet PO (09:28)
[2019-03-27] MEDS: Clopidogrel Bisulfate 75 MG Tablet PO (09:28)
[2019-03-27] MEDS: Heparin Injection (Vial) 5,000 UNIT/ML VIAL 5000 UNIT SC (09:28)
[2019-03-27] MEDS: Carvedilol 6.25 MG Tablet PO (09:28)
[2019-03-27 10:50] VITALS: PULSE 62
--- NOTE | 2019-03-27 11:00 | PCM.DC ---
- Discharge Diagnoses Current Active Problems: Current Active and Chronic Problems (Last Reviewed 03/25/19 @ 20:56 by Aurelia Nicole DO) 1. Acute kidney injury on chronic kidney disease stage III 2. Orthostatic hypotension You will use the following diet at home:: Cardiac Discharge Activity: Return to Normal Activity Call your doctor if you observe: Shortness of breath, Dizziness, Fainting spells, Chest pain, - - Report greater than 4 pound weight gain to cardiology, weigh daily Allergies/Adverse Reactions: Allergies atorvastatin [From Lipitor] Adverse Reaction (Verified 03/11/19 10:41) myalgia leflunomide [From Arava] Adverse Reaction (Verified 03/11/19 10:41) PROBLEMS WITH MY FEET simvastatin [From Zocor] Adverse Reaction (Verified 03/11/19 10:41) myalgia Medications to take at Discharge Aspirin 325 mg PO DAILY@199905/22/16 Colchicine 0.6 mg PO DAILY 05/22/16 Finasteride [Proscar] 5 mg PO DAILY 05/22/16 Levothyroxine [Synthroid] 50 mcg PO DAILY 05/22/16 Tamsulosin HCl [Flomax] 0.4 mg PO DAILY 05/22/16 hydroxychloroquine 200 mg tablet 200 mg PO DAILY tab 11/10/17 tramadol 50 mg tablet 50 mg PO QHS PRN PRN tab 11/10/17 nitroglycerin 0.4 mg sublingual tablet 0.4 mg SUBLINGUAL Q5-15M PRN #25 tab 11/16/18 Prednisone 5 mg PO DAILY #0 02/10/19 Amiodarone HCl 200 mg PO DAILY 03/25/19 Carvedilol 6.25 mg PO BID 03/25/19 Clopidogrel Bisulfate [Plavix] 75 mg PO DAILY 03/25/19 Pravastatin Sodium 20 mg PO QODAY 03/25/19 Furosemide 40 mg PO DAILY #60 tab 03/27/19 Primary Care Physician: Miguel Pineda MD [Primary Care Provider] - Please follow up with your Primary Care Physician in: 1 Week Test Results: Test results from this visit will be discussed in further detail at your follow-up appointment, if applicable. Please Follow Up With: Yefri Caceres MD When: 1-2 Weeks, may see [employer]PA Please Follow Up With: Castillo,Rupal, [employer]-C When: As scheduled Proposed Discharge Date: 03/27/19
--- NOTE | 2019-03-27 11:04 | PCM.DC.SUM ---
<Krystina Jones - Last Filed: 03/27/19 11:08> Discharge Date and Diagnosis Date of Admission: 03/25/19 Date of Discharge: 03/27/19 - Primary Discharge Diagnosis Active and Suspected Problems (Last Reviewed 03/25/19 @ 20:56 by Aurelia Nicole DO) 1. Acute kidney injury on chronic kidney disease stage III 2. Orthostatic hypotension 3. CAD status post PCI 4. Ischemic cardiomyopathy with EF 15%-status post AICD. 5. Type 2 diabetes mellitus 6. Hypertension 7. Hyperlipidemia 8. Hypothyroidism 9. Inflammatory arthritis 10. BPH 11. 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 History of appendectomy (Chronic) Presence of coronary angioplasty implant and graft (Chronic ~09/23/06) PTCA and stenting of the LAD and diagonal 09/23/2006 Abnormal echocardiogram (Chronic) Mixed hyperlipidemia (Chronic) Atherosclerotic heart disease of [place] coronary artery without angina pectoris (Chronic) Essential hypertension (Chronic) Mixed sleep apnea (Chronic) BiPAP 17/11 mm of water with a backup rate of 12 Hypersomnolence disorder (Chronic) Dilated cardiomyopathy (Chronic) 15% EF Paroxysmal ventricular tachycardia (Chronic) Abnormal result of cardiovascular function study, unspecified (Chronic) 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) Implant: 06/2000; Generator change: 03/17/2008 Hypothyroidism, iatrogenic (Chronic) 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 No acute cardiopulmonary findings Electronically Signed: Jhonny Khoury, at 17:55 EST Tel , Service support , Operations: None Procedures: None Summary of Care Provided: The patient is a 83 year old M admitted 03/25/2019 due to generalized weakness and lightheadedness. 1. Acute kidney injury on chronic kidney disease stage III-improved with holding diuretic regimen and gentle IV fluids. Recent renal ultrasound January 2019 demonstrated bilateral renal cortical atrophy, no obstruction or stones. Lasix regimen recently increased due to CHF exacerbation. Discharged on Lasix 40 mg daily. Follow-up with primary care physician in 1 week. Instructed patient to weigh daily and report greater than 4 pound weight gain or increased swelling, shortness of breath immediately to cardiology for adjustment in Lasix regimen. 2. Orthostatic hypotension-improved with IV fluids. Lasix regimen reduced as noted above. 3. CAD status post PCI-continue aspirin, Plavix, carvedilol. 4. Ischemic cardiomyopathy with EF 15%-status post AICD. Continue aspirin, Plavix, statin, carvedilol. Echo November 2018 demonstrated EF 15%. 5. Type 2 diabetes mellitus-diet controlled. 6. Hypertension-stable, continue home Coreg and Lasix regimen. 7. Hyperlipidemia-continue statin. 8. Hypothyroidism-continue Synthroid regimen. 9. Inflammatory arthritis-continue Plaquenil, low-dose steroid. 10. BPH-continue Flomax, Proscar. 11. KENAN-continue home BiPAP regimen. General: Alert, Oriented x3, Cooperative HEENT: Atraumatic, PERRLA, EOMI, Normocephalic Neck: Supple, No JVD, Negative Carotid Bruits Lungs: Clear to auscultation, Normal air movement Cardiovascular: Regular rate, Regular Rhythm, Normal S1, Normal S2, No murmurs Abdomen: Bowel Sounds Present, Soft, Non Tender, Non-Distended Extremities: No clubbing, No cyanosis, No edema, Capillary Refill Less than 3 Seconds Skin: No rashes, No breakdown Musculoskeletal: No Tenderness to Palpation of Joints or Extremities Neurological: Cranial nerves II-XII grossly intact, Neuro grossly intact Psych/Mental Status: Normal Affect, Appropriate Patient seen and examined prior to discharge. Physical assessment as noted above. Patient is stable for discharge with follow up recommendations as noted above. This patient was seen by RONA Giordano under the supervision of Dr. Pacheco. - Physical Exam Vitals/I&O's: Vital Signs Temp Pulse Resp BP Pulse Ox 97.9 F 62 16 120/56 L 97 03/27/19 09:20 03/27/19 10:50 03/27/19 09:20 03/27/19 09:20 03/27/19 09:20 Oxygen Delivery Method Room Air Weight: 184 lb 15.485 oz Body Mass Index (BMI) 25.7 Orthostatic Vital Signs Start: 03/25/19 19:46 Freq: 0600 Status: Active Protocol: Activity Type Activity Date Activity User E-Sign Co-Sign Detail Recorded Client Recorded Date Recorded By Document 03/27/19 03:20 [facility] [id number] 03/27/19 04:17 [facility] 03/27/19 03:20 Orthostatic Vitals Standing -Blood Pressure (90/60-120/80) 84/52 L -Extremity Use Left Arm -Pulse Rate (60-100) 70 Sitting -Blood Pressure (90/60-120/80) 101/49 L -Extremity Use Left Arm -Pulse Rate (60-100) 67 Lying -Blood Pressure (90/60-120/80) 105/54 L -Extremity Use Left Arm -Pulse Rate (60-100) 63 Intake and Output for Last 24 Hours 03/25/19 03/26/19 03/27/19 23:59 23:59 23:59 Intake Total 1320 / 1320 2300 / 2300 1500 / 1500 Output Total 200 / 200 450 / 450 Balance 1120 / 1120 1850 / 1850 1500 / 1500 Laboratory Results 03/27/19 06:20: Sodium 142, Potassium 4.2, Chloride 109 H, Carbon Dioxide 30.0, Anion Gap 3 L, BUN 37 H, Creatinine 2.20 H, Estim Creat Clear Calc 27.10, Est GFR (MDRD) Af Amer 37 L, Est GFR (MDRD) Non-Af 31 L, BUN/Creatinine Ratio 16.8, Glucose 94, Calcium 8.7 Current Medications Acetaminophen (Tylenol) 650 mg PO Q6H PRN PRN PRN Reason: Pain Score 1-3/Temp > 100.7 F Al Hydroxide/Mg Hydroxide (Mylanta Ii) 30 ml PO Q6H PRN PRN PRN Reason: Gastric Burning Amiodarone HCl (Cordarone) 200 mg PO DAILY [facility] Last Admin: 03/27/19 09:27 Dose: 200 mg Documented by: Aspirin (Aspirin) 325 mg PO DAILY@1999 [facility] Last Admin: 03/26/19 21:17 Dose: 325 mg Documented by: Carvedilol (Coreg) 6.25 mg PO BID [facility] Last Admin: 03/27/19 09:28 Dose: 6.25 mg Documented by: Clopidogrel Bisulfate (Plavix) 75 mg PO DAILY [facility] Last Admin: 03/27/19 09:28 Dose: 75 mg Documented by: Finasteride (Proscar) 5 mg PO DAILY [facility] Last Admin: 03/27/19 09:28 Dose: 5 mg Documented by: Heparin Sodium (Porcine) (Heparin Na) 5,000 unit SC Q12 [facility] Last Admin: 03/27/19 09:28 Dose: 5,000 unit Documented by: [facility] Admin: 03/27/19 09:27 Dose: 200 mg Documented by: Sodium Chloride () 1,000 mls @ 75 mls/hr IV .[id number] [facility] Last Admin: 03/27/19 05:33 Dose: 75 mls/hr Documented by: Levothyroxine Sodium (Synthroid) 50 mcg PO DAILY@0600 [facility] Last Admin: 03/27/19 05:01 Dose: 50 mcg Documented by: Melatonin (Melatonin) 3 mg PO QHS PRN PRN PRN Reason: INSOMNIA Nitroglycerin (Nitrostat) 0.4 mg SUBLINGUAL Q5M PRN PRN Reason: cardiac/chest pain Pravastatin Sodium (Pravachol) 20 mg PO QODAY@2200 [facility] () [facility] Last Admin: 03/27/19 09:27 Dose: 5 mg Documented by: Prochlorperazine Edisylate (Compazine Iv) 5 mg IV Q4H PRN PRN PRN Reason: Breakthrough Nausea/Vomiting Senna/Docusate Sodium (Senokot-S, Alison-Colace) 2 tablet PO BID PRN PRN PRN Reason: Constipation Sodium Chloride () 10 - 40 ml IV UD PRN PRN Reason: SALINE FLUSH Last Admin: 03/26/19 17:09 Dose: 10 ml Documented by: Tamsulosin HCl (Flomax) 0.4 mg PO DAILY@0830 [facility] Last Admin: 03/27/19 09:27 Dose: 0.4 mg Documented by: Tramadol HCl (Ultram) 50 mg PO QHS PRN PRN PRN Reason: Pain Score 1-10/10 Discharge Diet: Low fat/ Low Cholesterol, 8 Cup Fluid Restriciton, 2000 mg Sodium Diet Discharge Activity: Return to Normal Activity Call your doctor if you observe: Shortness of breath, Dizziness, Fainting spells, Chest pain, - - Report greater than 4 pound weight gain to cardiology, weigh daily Home Medications: Medications to take at Discharge Aspirin 325 mg PO DAILY@199905/22/16 Colchicine 0.6 mg PO DAILY 05/22/16 Finasteride [Proscar] 5 mg PO DAILY 05/22/16 Levothyroxine [Synthroid] 50 mcg PO DAILY 05/22/16 Tamsulosin HCl [Flomax] 0.4 mg PO DAILY 05/22/16 hydroxychloroquine 200 mg tablet 200 mg PO DAILY tab 11/10/17 tramadol 50 mg tablet 50 mg PO QHS PRN PRN tab 11/10/17 nitroglycerin 0.4 mg sublingual tablet 0.4 mg SUBLINGUAL Q5-15M PRN #25 tab 11/16/18 Prednisone 5 mg PO DAILY #0 02/10/19 Amiodarone HCl 200 mg PO DAILY 03/25/19 Carvedilol 6.25 mg PO BID 03/25/19 Clopidogrel Bisulfate [Plavix] 75 mg PO DAILY 03/25/19 Pravastatin Sodium 20 mg PO QODAY 03/25/19 Furosemide 40 mg PO DAILY #60 tab 03/27/19 Primary Care Physician: Miguel Pineda MD [Primary Care Provider] - Please follow up with your Primary Care Physician in: 1 Week Please Follow Up With: Yefri Caceres MD When: 1-2 Weeks, may see COUNSELING PROGRAM LEADER/PA Please Follow Up With: Rupal Castillo NP-C When: As scheduled Disposition: Home Minutes spent on discharge:: 35 Patient Condition:: Stable Medical Necessity - Tobacco Use Smoking Status: Former smoker Tobacco Use: Non-smoker, Cigarettes Meaningful Use Info Meaningful Use Diagnoses (Choose all that apply): None applicable <Giovanny Pacheco - Last Filed: 03/27/19 17:25> Discharge Date and Diagnosis - Secondary Discharge Diagnosis Chronic Problems (Last Reviewed 03/25/19 @ 20:56 by Aurelia Nicole DO) Acute renal failure superimposed on stage 3 chronic kidney disease (Chronic) 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 History of appendectomy (Chronic) Presence of coronary angioplasty implant and graft (Chronic ~09/23/06) PTCA and stenting of the LAD and diagonal 09/23/2006 Abnormal echocardiogram (Chronic) Mixed hyperlipidemia (Chronic) Atherosclerotic heart disease of [place] coronary artery without angina pectoris (Chronic) Essential hypertension (Chronic) Mixed sleep apnea (Chronic) BiPAP 17/11 mm of water with a backup rate of 12 Hypersomnolence disorder (Chronic) Dilated cardiomyopathy (Chronic) 15% EF Paroxysmal ventricular tachycardia (Chronic) Abnormal result of cardiovascular function study, unspecified (Chronic) 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) Implant: 06/2000; Generator change: 03/17/2008 Hypothyroidism, iatrogenic (Chronic) 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 I have independently interviewed and examined the patient and reviewed pertinent history, examination findings, laboratory and plan of management. I have reviewed the note and agree with the documented findings with the few additional points. In brief, patient is admitted for near syncope, near fall situation mostly secondary to overdiuresis. Patient IV fluid. Orthostatic signs were positive, blood pressure dropped from 110/72, heart rate 68-83/56, 77 understanding. IV fluid normal saline. Diuretic on hold. Patient blood pressure drops on standing. Advised thigh-high MAN hose at home while on feet. Patient and daughter was educated about diuretic, daily weight checkup and symptoms and signs of dehydration. Acute kidney injury on CKD stage III secondary to overdiuresis. Renal ultrasound in February 21 showed bilateral renal cortical atrophy but no obstructive uropathy. Chronic systolic heart failure, ischemic cardiomyopathy with EF 15 per status post AICD. 03/27: BUN/creatinine from 37/2.2. Rest of the comorbidities as mentioned above. Type 2 diabetes mellitus. Diet controlled. Glucoses 82 mg/dL in BMP. Discharge medication reconciliation done. Discharge follow-up instructions completed. Discharge process discussed with the patient and all questions were answered to patient's satisfaction. Total time spent, exact 35 minutes on discharge meds reconciliation, examination, coordination of care with nurses and ancillary staff, review of imaging and blood test and discussion with the patient on follow-up instructions I have discussed my assessment with COUNSELING PROGRAM LEADERKrystina and orders have been reviewed. [] Subjective: Seen and examined. Patient does not have dizziness, shortness of breath or dyspnea on exertion. Orthostatic blood pressure does not show acute change on supine and sitting but dropped on standing up 84/52 Objective: General: Alert, Oriented x3, Cooperative HEENT: Atraumatic, PERRLA, EOMI, Normocephalic Neck: Supple, No JVD, Negative Carotid Bruits Lungs: Clear to auscultation, air entry diminished in bilateral lung bases, chronic in nature. Cardiovascular: Regular rate, Regular Rhythm, Normal S1, Normal S2, No murmurs Abdomen: Bowel Sounds Present, Soft, Non Tender, Non-Distended Extremities: No clubbing, No cyanosis, No edema, Capillary Refill Less than 3 Seconds Skin: No rashes, No breakdown Musculoskeletal: No Tenderness to Palpation of Joints or Extremities Neurological: Cranial nerves II-XII grossly intact, Neuro grossly intact Psych/Mental Status: Normal Affect, Appropriate - Physical Exam Vitals/I&O's: Vital Signs Temp Pulse Resp BP Pulse Ox 97.9 F 62 16 120/56 L 97 03/27/19 09:20 03/27/19 10:50 03/27/19 09:20 03/27/19 09:20 03/27/19 09:20 Oxygen Delivery Method Room Air Weight: 184 lb 15.485 oz Body Mass Index (BMI) 25.7 Orthostatic Vital Signs Start: 03/25/19 19:46 Freq: 0600 Status: Active Protocol: Activity Type Activity Date Activity User E-Sign Co-Sign Detail Recorded Client Recorded Date Recorded By Document 03/27/19 03:20 [facility] [id number] 03/27/19 04:17 RENEE 03/27/19 03:20 Orthostatic Vitals Standing -Blood Pressure (90/60-120/80) 84/52 L -Extremity Use Left Arm -Pulse Rate (60-100) 70 Sitting -Blood Pressure (90/60-120/80) 101/49 L -Extremity Use Left Arm -Pulse Rate (60-100) 67 Lying -Blood Pressure (90/60-120/80) 105/54 L -Extremity Use Left Arm -Pulse Rate (60-100) 63 Intake and Output for Last 24 Hours 03/25/19 03/26/19 03/27/19 23:59 23:59 23:59 Intake Total 1320 / 1320 2300 / 2300 1500 / 1500 Output Total 200 / 200 450 / 450 Balance 1120 / 1120 1850 / 1850 1500 / 1500 Laboratory Results 03/27/19 06:20: Sodium 142, Potassium 4.2, Chloride 109 H, Carbon Dioxide 30.0, Anion Gap 3 L, BUN 37 H, Creatinine 2.20 H, Estim Creat Clear Calc 27.10, Est GFR (MDRD) Af Amer 37 L, Est GFR (MDRD) Non-Af 31 L, BUN/Creatinine Ratio 16.8, Glucose 94, Calcium 8.7 Code Visit Inpatient E&M: [id number] Disch Hosp
--- NOTE | 2019-03-29 14:11 | CASEMGMT ---
Case Management DC F/u Call: DC Date: Friday03/27/2019 DC Diagnosis: 1. Acute kidney injury on chronic kidney disease stage III 2. Orthostatic hypotension 3. CAD status post PCI 4. Ischemic cardiomyopathy with EF 15%-status post AICD. 5. Type 2 diabetes mellitus 6. Hypertension 7. Hyperlipidemia 8. Hypothyroidism 9. Inflammatory arthritis 10. BPH 11. KENAN DC Disposition: Home Lace/Strata: 11/26 Called patient listed home number in demographics, Silva- patient HPOA answered, introduced self and role. States patient is not there and is doing pretty good. Denies any issues, concerns or questions with ACI, medications or f/u. Denies any suggestions for care improvements at [facility] and states the care received was good. Thanked them for choosing [facility] for care and ended the conversation. Paolo Mathur, RNCM
== END 2019-03-27 12:15 | disposition home or self-care (01) | DRG 641 ==
LOC: ED 17:23 → PCU 19:51
PROVIDERS: Nurse Practitioner Family; Admitting Provider Internal Medicine; Emergency Provider Emergency Medicine; PCP Family Medicine; Visit Provider Internal Medicine
DX: E86.0 Dehydration (principal); I13.0 Hypertensive heart and chronic kidney disease with heart failure and stage 1 through stage 4 chronic kidney disease, or unspecified chronic kidney disease; I50.22 Chronic systolic (congestive) heart failure; N17.9 Acute kidney failure, unspecified; I47.2 Ventricular tachycardia; I42.0 Dilated cardiomyopathy; E87.3 Alkalosis; N18.3 Chronic kidney disease, stage 3 (moderate); I95.1 Orthostatic hypotension; I25.5 Ischemic cardiomyopathy; M06.4 Inflammatory polyarthropathy; N40.0 Benign prostatic hyperplasia without lower urinary tract symptoms; G47.33 Obstructive sleep apnea (adult) (pediatric); E78.5 Hyperlipidemia, unspecified; E03.9 Hypothyroidism, unspecified; E11.22 Type 2 diabetes mellitus with diabetic chronic kidney disease; I25.10 Atherosclerotic heart disease of native coronary artery without angina pectoris; E11.51 Type 2 diabetes mellitus with diabetic peripheral angiopathy without gangrene; I70.219 Atherosclerosis of native arteries of extremities with intermittent claudication, unspecified extremity; J44.9 Chronic obstructive pulmonary disease, unspecified; Z95.810 Presence of automatic (implantable) cardiac defibrillator; G47.31 Primary central sleep apnea; Z79.82 Long term (current) use of aspirin; Z79.02 Long term (current) use of antithrombotics/antiplatelets; Z79.899 Other long term (current) drug therapy; Z87.891 Personal history of nicotine dependence
CPT/HCPCS: 36415; 71045; 80048; 80053; 83735; 83880; 84100; 84484; 85025; 93005; 97162; 97165; 99285; J7030; J7040; A4216

== ENCOUNTER → 2019-04-06 12:29 | Outpatient (CLI) | payer MEDICARE, OTHER, SELFPAY ==
[2019-03-25 19:39] VITALS: BMI 25.7
[2019-04-06 14:13] LABS: 24 Hour Urine Protein 117.4 mg/24HR (<150 MG/24HR); 24HR. UA Prot. Total Volume 1925 mL; Urine Protein (24 Hour) 6.1 mg/dL (<11.9)
[2019-04-06 14:15] LABS: Anion Gap 4 (5-15); BUN 41 mg/dL (7-18); BUN/Creat Ratio 19.8 RATIO (10-20); Calcium,Total 9.5 mg/dL (8.5-10.1); Chloride 103 mmol/L (98-107); Creatinine, Serum 2.07 mg/dL (0.70-1.30); EST Glomerular Filtration Rate 33 mL/min (>60); Est Glom Filt Rate - Afr Amer 40 mL/min (>60); Glucose 100 mg/dL (74-106); Phosphorus 2.6 mg/dL (2.5-4.9); Potassium 3.8 mmol/L (3.5-5.1); Sodium Level 138 mmol/L (136-145)
[2019-04-06 14:18] LABS: Creat.Clear Total Volume 1925 mL; Creatinine Clearance 36 ml/min (100-200); Creatinine Serum Creat 2.1 mg/dL (0.8-1.3); EST Glomerular Filtration Rate 33 mL/min (>60); Est Glom Filt Rate - Afr Amer 40 mL/min (>60)
[2019-04-06 14:35] LABS: PTHIN 116.2 pg/mL (18.4-80.1)
[2019-04-08 14:08] LABS: PROEL- Albumin 3.5 g/dL (2.9-4.4); PROEL- Alpha-1 Globulin 0.2 g/dL (0.0-0.4); PROEL- Alpha-2 Globulin 0.9 g/dL (0.4-1.0); PROEL- Beta Globulin 1.2 g/dL (0.7-1.3); PROEL- Gamma Globulin 1.3 g/dL (0.4-1.8); PROEL- Globulin, Total 3.6 g/dL (2.2-3.9); PROEL- TOTAL PROTEIN 7.1 g/dL (6.0-8.5); PROELU- Albumin, Urine 70.2 % (.); PROELU- Alpha-1-Globulin,Ur 5.9 % (.); PROELU- Alpha-2-Globulin,Ur 7.3 % (.); PROELU- Beta Globulin, Ur 10.2 % (.); PROELU- Gamma Globulin, Ur 6.4 % (.)
[2019-04-08 15:18] LABS: Total Protein, Ur < 4.0 mg/dL (Not Estab.)
== END ==
PROVIDERS: PCP Family Medicine; Referring Provider Internal Medicine; Visit Provider Internal Medicine
DX: N18.3 Chronic kidney disease, stage 3 (moderate) (principal); R80.9 Proteinuria, unspecified
CPT/HCPCS: 36415; 80048; 81050; 82306; 82575; 83970; 84100; 84156; 84165; 84166

== ENCOUNTER → 2019-04-22 14:01 | Outpatient (CLI) | payer MEDICARE, OTHER, SELFPAY ==
[2019-04-13 09:10] VITALS: BMI 26.9
[2019-04-22 16:07] LABS: Absolute Lymphocyte Count 0.92 X10^3/uL (0.83-4.51); Absolute Neutrophil Count 4.2 X10^3/uL (2.0-7.7); Basophil# 0.03 X10^3/uL; Basophil% 0.5 % (0-1); Eosinophil# 0.08 X10^3/uL; Eosinophils% 1.4 % (0-5); Hematocrit 42.9 % (40-54); Hemoglobin 13.5 g/dL (13.0-16.5); Lymphocyte # 0.92 X10^3/ul (4.0); Lymphocyte % 15.9 % (19-41); Mean Corp Hgb Conc 31.5 g/dL (32-36); Mean Corpuscular Volume 98.4 fL (80-94); Mean Platelet Vol. 9.7 fl (6.2-12.0); Monocyte# 0.52 X10^3/uL; NRBC Flagged by Analyzer 0 % (0-5); Neutrophil # 4.21 X10^3/uL (2.7-7.7); Neutrophil % 72.9 % (47-70); Platelet Count 182 K/mm3 (150-450); RBC Distribution Width CV 15.7 % (11.6-14.6); RBC Distribution Width SD 57.5 fl (35.1-43.9); Red Blood Count 4.36 M/mm3 (4.6-6.2); White Blood Count 5.8 K/mm3 (4.4-11.0)
[2019-04-22 16:17] LABS: ALB/GLOB Ratio 0.9 RATIO (0.9-2.4); AST(SGOT) 26 U/L (15-37); Alanine Aminotransfer ALT/SGPT 30 U/L (16-61); Albumin, Serum 3.5 g/dL (3.2-5.0); Alkaline Phosphatase 83 U/L (45-117); Anion Gap 5 (5-15); BUN 32 mg/dL (7-18); BUN/Creat Ratio 14.3 RATIO (10-20); Calcium,Total 9.2 mg/dL (8.5-10.1); Chloride 102 mmol/L (98-107); Creatinine, Serum 2.23 mg/dL (0.70-1.30); EST Glomerular Filtration Rate 30 mL/min (>60); Est Glom Filt Rate - Afr Amer 36 mL/min (>60); Globulin 4.1 g/dL (2.2-4.2); Glucose 144 mg/dL (74-106); Potassium 4.3 mmol/L (3.5-5.1); Protein, Total 7.6 g/dL (6.4-8.2); Sodium Level 138 mmol/L (136-145)
== END ==
PROVIDERS: PCP Family Medicine; Referring Provider Internal Medicine Rheumatology; Visit Provider Internal Medicine Rheumatology
DX: M06.4 Inflammatory polyarthropathy (principal); M17.0 Bilateral primary osteoarthritis of knee; M1A.9XX1 Chronic gout, unspecified, with tophus (tophi); Z79.899 Other long term (current) drug therapy
CPT/HCPCS: 36415; 80053; 85025

== ENCOUNTER 2019-05-29 11:11 | Emergency (ER) | payer MEDICARE, OTHER, SELFPAY ==
[2019-05-26 09:28] VITALS: BMI 25.7
[2019-05-29 11:13] VITALS: BP 101/64; PULSE 68; RESP 14; TEMP 36.9; O2SAT 96; BMI 28.3
[2019-05-29 11:31] VITALS: BP 114/65; PULSE 66; RESP 17; O2SAT 96
--- NOTE | 2019-05-29 11:31 | EKG12_ITS ---
Test Reason : CP Blood Pressure : / mmHG Vent. Rate : 069 BPM Atrial Rate : 069 BPM P-R Int : 216 ms QRS Dur : 120 ms QT Int : 434 ms P-R-T Axes : 040 -23 134 degrees QTc Int : 465 ms Sinus rhythm with 1st degree A-V block with frequent Premature ventricular complexes Left ventricular hypertrophy with QRS widening and repolarization abnormality Abnormal ECG Confirmed by OLY FORBES MD ([id number]), supervising editor news reel VIRGILIO EVANS ([id number]) on 06/01/2019 1:53:15 PM Referred By: AVELINO Confirmed By:OLY FORBES MD
[2019-05-29 11:45] LABS: Absolute Lymphocyte Count 1.24 X10^3/uL (0.83-4.51); Absolute Neutrophil Count 3.2 X10^3/uL (2.0-7.7); Basophil# 0.04 X10^3/uL; Basophil% 0.7 % (0-1); Eosinophil# 0.25 X10^3/uL; Eosinophils% 4.6 % (0-5); Hematocrit 39.3 % (40-54); Hemoglobin 12.6 g/dL (13.0-16.5); Lymphocyte # 1.24 X10^3/ul (4.0); Lymphocyte % 22.9 % (19-41); Mean Corp Hgb Conc 32.1 g/dL (32-36); Mean Corpuscular Hgb 32.1 pg (27.0-32.0); Mean Platelet Vol. 9.6 fl (6.2-12.0); Monocyte# 0.71 X10^3/uL; Monocyte% 13.1 % (0-10); NRBC Flagged by Analyzer 0 % (0-5); Neutrophil # 3.17 X10^3/uL (2.7-7.7); Neutrophil % 58.5 % (47-70); Platelet Count 170 K/mm3 (150-450); RBC Distribution Width CV 14.2 % (11.6-14.6); RBC Distribution Width SD 52.6 fl (35.1-43.9); Red Blood Count 3.93 M/mm3 (4.6-6.2); White Blood Count 5.4 K/mm3 (4.4-11.0)
--- NOTE | 2019-05-29 11:45 | RAD_ITS ---
STUDY: X-RAY CHEST REASON FOR EXAM: Male, 83 years old. Chest pain TECHNIQUE: Single AP portable view x2 of the chest. COMPARISON: 05/24/2019 chest x-ray FINDINGS: There is a left-sided pacer defibrillator. The lungs are clear and expanded. There is no demonstrated pleural abnormality. There is mild to moderate cardiac enlargement. Normal mediastinum and brooklynn. Normal visualized pulmonary arteries. There is atherosclerotic tortuosity of the aortic arch and descending thoracic aorta. There are diffuse degenerative changes of the visualized thoracic spine. Normal visualized ribs, clavicles, and shoulders. There is no demonstrated abnormality of the visualized soft tissue structures of the upper abdomen. RAD/Chest 1 View (Portable) IMPRESSION: Stable chest or visualized acute focal infiltrate. Cardiomegaly with defibrillator. Electronically Signed: Mylene Norton MD at 12:47 EDT Tel , Service support ,
[2019-05-29] MEDS: Aspirin 81 MG TAB.CHEW 324 MG PO (11:58)
--- NOTE | 2019-05-29 11:58 | ED.DCSUM_ITS ---
- ER Visit Summary Date of Service: 05/29/19 Chief Complaint: Chest pain History of Present Illness: The patient is a 83 M who presents with chest pain that began today. Patient states he was getting ready to go outside and do yard work when he started having pain in his chest. Patient describes the pain as throbbing. Patient states the pain is all the way across to his lower chest. Patient states he took 2 sublingual nitroglycerin tablets by EMS and his pain improved. Patient currently denies any chest pain. Patient admits to some lightheadedness when he had the chest pain. Patient denies any nausea, vomiting, diaphoresis, or shortness of breath. Physical Examination: Vital signs are stable. Patient is afebrile. Patient is in no acute distress. Oral mucosa is pink and moist. Neck is supple. Trachea is midline. There is no JVD noted. Heart was regular rate and rhythm. Lungs are clear and equal bilaterally. Abdomen is soft. Bowel sounds are normal. There is no tenderness. There is no rebound or guarding noted. Skin is warm dry. Cranial nerves II through XII are intact. There are no focal motor or sensory deficits noted. Extremities are intact. There is no calf tenderness or edema. Test Results: EKG showed sinus rhythm with occasional PVCs. There are no acute ST or T wave changes. This was unchanged compared to previous EKG. CBC and basic metabolic profile were within normal limits with the exception of an elevated creatinine of 2.1 which is consistent with prior results.. Troponin was normal. Portable chest x-ray was obtained. There is no acute cardiopulmonary process. This was interpreted by the radiologist and myself. Emergency Department Course and Treatment: Patient remained pain-free during his emergency department stay. Patient was advised of his results. Patient was instructed to follow-up with his primary care physician in 3 to 5 days. Patient was also instructed to follow-up with cardiology. Patient was instructed on signs and symptoms which should prompt return to the emergency department. Patient understands and is agreeable with the plan. All questions were answered. Disposition: Discharge home Impression: Stable angina This note was generated with [employer] software. It may contain incorrect words, spelling, and punctuation that were not noted in review of the chart prior to signing ED Disposition - Plan for ED Patient: Disposition: Home or Assisted Living Diagnosis: Stable angina Instructions: ED Chest Pain Atypical Unkn Cause Referrals: Miguel Pineda MD [Primary Care Provider] - 3-5 Days
[2019-05-29 12:01] LABS: Anion Gap 7 (5-15); BUN 41 mg/dL (7-18); BUN/Creat Ratio 19.5 RATIO (10-20); Calcium,Total 9.3 mg/dL (8.5-10.1); Chloride 104 mmol/L (98-107); EST Glomerular Filtration Rate 32 mL/min (>60); Est Glom Filt Rate - Afr Amer 39 mL/min (>60); Estimated Creatinine Clearance 28.39 ml/min; Glucose 129 mg/dL (74-106); Potassium 3.5 mmol/L (3.5-5.1); Sodium Level 139 mmol/L (136-145)
[2019-05-29 14:10] VITALS: BP 128/74; PULSE 66; RESP 16; O2SAT 100
[2019-05-29 15:30] VITALS: BP 135/73; PULSE 67; RESP 19; O2SAT 100
== END 2019-05-29 15:30 | disposition home or self-care (01) ==
PROVIDERS: Emergency Provider Emergency Medicine; PCP Family Medicine
DX: I20.8 Other forms of angina pectoris (principal); I49.3 Ventricular premature depolarization; I12.9 Hypertensive chronic kidney disease with stage 1 through stage 4 chronic kidney disease, or unspecified chronic kidney disease; E11.22 Type 2 diabetes mellitus with diabetic chronic kidney disease; N18.9 Chronic kidney disease, unspecified; E03.9 Hypothyroidism, unspecified; Z79.02 Long term (current) use of antithrombotics/antiplatelets; Z79.82 Long term (current) use of aspirin; Z79.899 Other long term (current) drug therapy; Z87.891 Personal history of nicotine dependence; Z95.5 Presence of coronary angioplasty implant and graft
CPT/HCPCS: 71045; 80048; 84484; 85025; 93005; 99285

== ENCOUNTER 2019-06-17 18:58 | Inpatient (IN) | payer MEDICARE, OTHER, SELFPAY ==
[2019-06-15 08:00] VITALS: BMI 28.3
[2019-06-17] VITALS (11 sets, daily range): BP systolic 101–135; BP diastolic 63–85; PULSE 65–118; RESP 15–19; TEMP 36.6–36.7; O2SAT 95–100; BMI 27.9; BMI 27.2; BMI 27.3
--- NOTE | 2019-06-17 19:05 | RAD_ITS ---
STUDY: X-RAY CHEST REASON FOR EXAM: Male, 83 years old. chest pain TECHNIQUE: Portable chest COMPARISON: 05/29/2019 FINDINGS: There is stable mild bibasilar scarring. There is stable mild cardiomegaly. There is 4 mm left upper lobe pulmonary nodular density. There is a cardiac pacemaker. Normal mediastinum and brooklynn. Normal visualized pulmonary arteries. Normal visualized aortic arch and descending thoracic aorta. Normal visualized thoracic spine. Normal visualized ribs, clavicles, and shoulders. There is no demonstrated abnormality of the visualized soft tissue structures of the upper abdomen. RAD/Chest 1 View (Portable) IMPRESSION: Stable mild cardiomegaly and cardiac pacemaker Stable mild pulmonary scarring within the lung bases 4 mm left upper lobe pulmonary nodular density suspicious for pulmonary nodule, CT chest follow-up recommended Electronically Signed: Pankaj Gottlieb, at 20:05 EDT Tel , Service support ,
--- NOTE | 2019-06-17 19:05 | EKG12_ITS ---
Test Reason : CP Blood Pressure : / mmHG Vent. Rate : 103 BPM Atrial Rate : 103 BPM P-R Int : 206 ms QRS Dur : 122 ms QT Int : 396 ms P-R-T Axes : 030 -26 109 degrees QTc Int : 518 ms Sinus tachycardia with frequent and consecutive Premature ventricular complexes Left ventricular hypertrophy Nonspecific ST and T wave abnormality Abnormal ECG Confirmed by BEATRIZ GALLARDO, TRISTAN ([id number]), scientific publications editor VIRGILIO EVANS ([id number]) on 06/21/2019 10:22:52 AM Referred By: OSCAR Confirmed By:TRISTAN HENDERSON MD
--- NOTE | 2019-06-17 19:07 | EKG12_ITS ---
Test Reason : CP Blood Pressure : / mmHG Vent. Rate : 083 BPM Atrial Rate : 083 BPM P-R Int : 176 ms QRS Dur : 120 ms QT Int : 394 ms P-R-T Axes : 034 -25 113 degrees QTc Int : 462 ms Sinus rhythm with frequent ventricular-paced complexes and with occasional and consecutive Premature ventricular complexes and Fusion complexes Nonspecific ST and T wave abnormality Abnormal ECG When compared with ECG of 17-JUN-2019 19:06, MANUAL COMPARISON REQUIRED, DATA IS UNCONFIRMED Confirmed by BEATRIZ GALLARDO, TRISTAN ([id number]), associate entertainment editor VIRGILIO EVANS ([id number]) on 06/21/2019 10:28:55 AM Referred By: OSCAR Confirmed By:TRISTAN HENDERSON MD
--- NOTE | 2019-06-17 19:10 | ED.DCSUM_ITS ---
History of Present Illness Chief Complaint: Chest Pain Informant: Patient Onset: Today Context: Gradual Onset Timing: Intermittent Current Severity: Moderate Maximum Severity: Moderate Narrative: The patient is an 83-year-old male with medical history significant for coronary vascular disease status post 3 stents, paroxysmal ventricular tachycardia status post AICD on amiodarone, who presents to the emergency department with intermittent chest pain. The patient states that he has been having more frequent anginal symptoms over the past month. He states that today, he had chest pain at rest. It was relieved with 3 nitroglycerin. He states that it then returned tonight. He states that by the time he arrived here, he is currently pain-free. The patient did undergo heart catheterization in December which showed dilated cardiomyopathy and no large vessel occlusion that would benefit from intervention. He had AICD placed given history of C HF and known EF of 15%. He states that from time to time, he will be lightheaded especially with exertion. Prior similar symptoms: Yes Recent Illness/Hospitalization: Yes Past Medical History - Allergies and Home Meds Allergies/Adverse Reactions: Allergies atorvastatin [From Lipitor] Adverse Reaction (Verified 06/17/19 19:13) myalgia leflunomide [From Arava] Adverse Reaction (Verified 06/17/19 19:13) PROBLEMS WITH MY FEET simvastatin [From Zocor] Adverse Reaction (Verified 06/17/19 19:13) myalgia Primary Care Physician: Miguel Pineda MD [Primary Care Provider] - Prior records reviewed: Yes Past Medical History: - - Coronary vascular disease, AICD placement, paroxysmal ventricular tachycardia, COPD not on home oxygen Surgical History: angioplasty, appendectomy, - - AICD, appendectomy, PCI. Smoking Status: Former smoker - Family History Paternal Family History: Family History (Last Reviewed 06/15/19 @ 09:14 by RONA Felix) Mother Alzheimers disease Brother Cancer Brother Hypertension Brother CAD (coronary artery disease) Sister CAD (coronary artery disease) Sister Breast cancer Family History: Reports: Pulmonary Disease - emphysema, s/p lobectomy Maternal Family History: Family History (Last Reviewed 06/15/19 @ 09:14 by RONA Felix) Mother Alzheimers disease Brother Cancer Brother Hypertension Brother CAD (coronary artery disease) Sister CAD (coronary artery disease) Sister Breast cancer Family History: Reports: Dementia, Heart Disease Sibling Family History: Family History (Last Reviewed 06/15/19 @ 09:14 by RONA Felix) Mother Alzheimers disease Brother Cancer Brother Hypertension Brother CAD (coronary artery disease) Sister CAD (coronary artery disease) Sister Breast cancer Family History: Reports: Heart Disease Offspring Family History: Family History (Last Reviewed 06/15/19 @ 09:14 by RONA Felix) Mother Alzheimers disease Brother Cancer Brother Hypertension Brother CAD (coronary artery disease) Sister CAD (coronary artery disease) Sister Breast cancer Family History: Reports: No pertinent history Review of Systems General: Denies: Chills, Fever, Sweats Eyes: Denies: Visual changes - bilaterally, Diplopia ENT: Denies: Rhinorrhea, Sore throat Cardiovascular: Reports: Chest pain, Palpitations Respiratory: Reports: Dyspnea. Denies: Cough, Dyspnea on exertion Gastrointestinal: Denies: Abdominal pain, Nausea, Vomiting, Diarrhea, Melena, Hematochezia Genitourinary: Denies: Dysuria, Hematuria, Frequency Musculoskeletal: Denies: Back pain, Extremity Pain Skin: Denies: Rash, Wounds Neurological: Denies: Headache, Weakness, Numbness Physical Exam Vital Signs/Narrative: Vital Signs Temp Pulse Resp BP Pulse Ox 06/17/19 19:07 103 H 15 96 06/17/19 18:59 98 F 86 16 126/77 H 96 Inital Vital Signs reviewed: Yes General: Well nourished, Well developed, No Acute Distress Head: Normocephalic, Atraumatic Eyes: Perrl, EOMI ENT: Moist mucous membranes, No rhinorrhea Neck: Supple, Nontender Cardiovascular: Regular rate, Regular rhythm, No murmurs Respiratory: No distress, CTA bilaterally, Chest nontender Abdomen: Soft, Nontender, Nondistended, Normal bowel sounds Back: Nontender, Normal Inspection Extremities: Nontender, No edema Skin: Normal color, No rash Neurological: Alert, Oriented x3, Cranial nerves II-XII grossly intact, Normal Strength, Normal Sensation Psychological: Normal affect, Normal Mood Diagnostic/Tx/Re-eval - Rhythm Strip Rhythm Strip: Sinus Rhythm Rate: 80 Ectopy: PVC(s), - - Multiple runs of nonsustained ventricular tachycardia with overdrive pacing - EKG Initial EKG Interpretation: Sinus Rhythm, V-Tachycardia Prior: Unchanged - Medical Decision Making The patient presents to the emergency department with intermittent chest pain. He does have history of dilated cardiomyopathy. He did have a heart catheterization less than 6 months ago which showed no need for intervention. When on the monitor, the patient was having runs of nonsustained V. tach anywhe re from 4-10 beats. His defibrillator has not fired. He will either pace himself out, or return quickly to a sinus rhythm. I did discuss the patient with Dr. Caceres, his technical cable jointer, on patient arrival. He did agree with plan for amiodarone infusion and drip. My suspicion is the patient is likely having some ischemic symptoms because of his dysrhythmia, especially in light of his significant cardiomyopathy. Metabolic work-up was pursued. His EKG is not ischemic. His cardiac enzymes are negative. His potassium was 3.6, so it will be replaced to get him closer to 4 to hopefully better control his dysrhythmia. At this point, given multiple runs of nonsustained ventricular tachycardia, I do feel the patient would benefit from admission. The patient was discussed with the hospitalist. Impression 1. Chest pain. 2. Multiple runs of nonsustained ventricular tachycardia 3. History of ischemic cardiomyopathy with CHF 15% Critical care time is 35 minutes. - Critical Care Time Critical care time (excluding procedures): 30-74 minutes, Discussing w/Patient &/or Family/Crutching Contractor, Discussing w/Consultants, Arranging Admission or Transfer, Performing Direct Patient Care at Bedside ED Disposition - Plan for ED Patient: Referrals: Miguel Pineda MD [Primary Care Provider] -
[2019-06-17] MEDS: Aspirin 81 MG TAB.CHEW 324 MG PO (19:18)
[2019-06-17 19:31] LABS: Absolute Lymphocyte Count 1.29 X10^3/uL (0.83-4.51); Absolute Neutrophil Count 4.2 X10^3/uL (2.0-7.7); Basophil# 0.03 X10^3/uL; Basophil% 0.5 % (0-1); Eosinophil# 0.06 X10^3/uL; Hemoglobin 13.1 g/dL (13.0-16.5); Lymphocyte # 1.29 X10^3/ul (4.0); Lymphocyte % 20.5 % (19-41); Mean Corp Hgb Conc 32.8 g/dL (32-36); Mean Corpuscular Hgb 32.4 pg (27.0-32.0); Mean Platelet Vol. 9.5 fl (6.2-12.0); Monocyte# 0.63 X10^3/uL; NRBC Flagged by Analyzer 0 % (0-5); Neutrophil # 4.24 X10^3/uL (2.7-7.7); Neutrophil % 67.5 % (47-70); Platelet Count 163 K/mm3 (150-450); RBC Distribution Width CV 13.6 % (11.6-14.6); RBC Distribution Width SD 49.2 fl (35.1-43.9); Red Blood Count 4.04 M/mm3 (4.6-6.2); White Blood Count 6.3 K/mm3 (4.4-11.0)
[2019-06-17 19:35] LABS: International Normalized Ratio 1.1; Prothrombin Time (Protime)PT. 13.7 SECONDS (11.7-14.9)
[2019-06-17 19:36] LABS: Partial Thromboplast Time 29.4 Seconds (24.1-36.2)
[2019-06-17 19:43] LABS: Anion Gap 6 (5-15); BUN 38 mg/dL (7-18); Calcium,Total 9.6 mg/dL (8.5-10.1); Chloride 101 mmol/L (98-107); Creatinine, Serum 2.38 mg/dL (0.70-1.30); EST Glomerular Filtration Rate 28 mL/min (>60); Est Glom Filt Rate - Afr Amer 34 mL/min (>60); Estimated Creatinine Clearance 25.05 ml/min; Glucose 192 mg/dL (74-106); Magnesium 2.1 mg/dL (1.6-2.6); Potassium 3.6 mmol/L (3.5-5.1); Sodium Level 138 mmol/L (136-145)
[2019-06-17] MEDS: Amiodarone 360 MG in Dextrose 5% Viaflo Bag 192.8 ML 33.3 MG CONT INF (19:46)
--- NOTE | 2019-06-17 20:01 | HP.PCM_ITS ---
Problem List (1) Dysrhythmia, cardiac Status: Acute (2) History of implantable cardioverter-defibrillator (ICD) placement Status: Chronic (3) History of appendectomy Status: Chronic (4) Presence of coronary angioplasty implant and graft Status: Chronic Comment: PTCA and stenting of the LAD and diagonal 09/23/2006 (5) Abnormal echocardiogram Status: Chronic (6) Mixed hyperlipidemia Status: Chronic (7) Atherosclerotic heart disease of [place] coronary artery without angina pecto ris Status: Chronic Qualifiers: [place] vs. transplanted heart: [place] heart Qualified Code(s): I25.10 - Atherosclerotic heart disease of [place] coronary artery without angina pectoris Comment: PTCA and stenting of the LAD and diagonal 09/23/2006 (8) Essential hypertension Status: Chronic (9) Mixed sleep apnea Status: Chronic Comment: BiPAP 17/11 mm of water with a backup rate of 12 (10) Hypersomnolence disorder Status: Chronic (11) Dilated cardiomyopathy Status: Chronic Comment: 15% EF (12) Paroxysmal ventricular tachycardia Status: Chronic (13) Abnormal result of cardiovascular function study, unspecified Status: Chronic (14) History of implantable cardioverter-defibrillator (ICD) placement Status: Chronic Comment: Implant: 06/2000; Generator change: 03/17/2008 (15) Hypothyroidism, iatrogenic Status: Chronic (16) Atherosclerosis of [place] arteries of extremity with intermittent claudication Status: Chronic Qualifiers: (17) Chronic renal failure, stage 3 (moderate) Status: Chronic (18) Diabetes mellitus type 2 in nonobese Status: Chronic (19) Sustained ventricular tachycardia Status: Chronic (20) Hypothyroidism Status: Chronic Qualifiers: (21) Cardiomyopathy Status: Chronic Qualifiers: Cardiomyopathy type: ischemic Qualified Code(s): I25.5 - Ischemic cardiomyopathy (22) Chest pain Status: Acute History of Present Illness Date of Admission: 06/17/19 Chief Complaint: Chest Pain The patient is a 83 year old M with a significant history of former smoker; hypothyroidism; ischemic cardiomyopathy NYHA class 3 status post coronary stent and ICD; paroxysmal ventricular tachycardia; diabetes mellitus; and CKD stage IIIb who presents to the emergency department with episodic chest pain that started a day before presentation. His chest pain is substernal and it radiates to his left shoulder. When the chest pain started it was relieved with nitroglycerin. However he chest pain got to a point that it could no longer be relieved with nitroglycerin so patient came to the emergency department. He denies any associated nausea; vomiting or diaphoresis. However he had had shortness of breath. He report that his chest pain is exacerbated with taking a deep breath. At emergent department patient was found to have episodes of nonsustained V. tach. Emergent department doctor discussed the case with patient's known scientist, Dr. Caceres who recommended patient be given amiodarone bolus and drip. Past Medical History Past Medical History (Chronic Problems): Chronic Problems (Last Reviewed 06/17/19 @ 20:[address] Adam Shaw MD) 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) History of appendectomy (Chronic) Presence of coronary angioplasty implant and graft (Chronic ~09/23/06) PTCA and stenting of the LAD and diagonal 09/23/2006 Abnormal echocardiogram (Chronic) Mixed hyperlipidemia (Chronic) Atherosclerotic heart disease of [place] coronary artery without angina pectoris (Chronic) PTCA and stenting of the LAD and diagonal 09/23/2006 Essential hypertension (Chronic) Mixed sleep apnea (Chronic) BiPAP 17/11 mm of water with a backup rate of 12 Hypersomnolence disorder (Chronic) Dilated cardiomyopathy (Chronic) 15% EF Paroxysmal ventricular tachycardia (Chronic) Abnormal result of cardiovascular function study, unspecified (Chronic) 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) Implant: 06/2000; Generator change: 03/17/2008 Hypothyroidism, iatrogenic (Chronic) Atherosclerosis of [place] arteries of extremity with intermittent claudication (Chronic) Chronic renal failure, stage 3 (moderate) (Chronic) Diabetes mellitus type 2 in nonobese (Chronic) Sustained ventricular tachycardia (Chronic) Hypothyroidism (Chronic) Cardiomyopathy (Chronic) Medical History: Medical History (Last Reviewed 06/18/19 @ 03:[address] Adam Shaw MD) History of left heart catheterization (LHC) (Resolved) Onset Date: ~01/05/19 Z98.890 LEFT MAIN: distal: eccentric: 25 % Stenosis; LEFT ANTERIOR DESCENDING ARTERY: PROX LAD: Previously placed stent is patent with minimal luminal irregularities, MID LAD: Mild luminal irregularities, 25 % Stenosis, DISTAL LAD: Mild luminal irregularities; DIAGONAL 1: Proximal - Previously placed stent is patent with minimal luminal irregularities; CIRCUMFLEX ARTERY: PROX CIRC: Previously placed stent is patent with minimal luminal irregularities OM 2: Mid - Mild luminal irregularities, RIGHT CORONARY ARTERY: Mild luminal irregularities, PROX RCA: diffuse: eccentric: 25 % Stenosis, MID RCA: eccentric: 25 - 50 % Stenosis, DISTAL RCA: diffuse: eccentric: 10 - 25 % Stenosis; RT PDA: Proximal - Mild luminal irregularities per cath 01/05/19 Mixed hyperlipidemia (Chronic) E78.2 Atherosclerotic heart disease of [place] coronary artery without angina pectoris (Chronic) I25.10 PTCA and stenting of the LAD and diagonal 09/23/2006 Essential hypertension (Chronic) I10 Dilated cardiomyopathy (Chronic) I42.0 15% EF Paroxysmal ventricular tachycardia (Chronic) I47.2 Abnormal result of cardiovascular function study, unspecified (Chronic) R94.30 Hypothyroidism, iatrogenic (Chronic) E03.2 Atherosclerosis of [place] arteries of extremity with intermittent claudication (Chronic) I70.219 Chronic renal failure, stage 3 (moderate) (Chronic) N18.3 Diabetes mellitus type 2 in nonobese (Chronic) E11.9 Sustained ventricular tachycardia (Chronic) I47.2 Hypothyroidism (Chronic) E03.9 Cardiomyopathy (Chronic) I42.9 Fatigue (Resolved) R53.83 Myalgia (Resolved) M79.1 Allergies atorvastatin [From Lipitor] Adverse Reaction (Verified 06/17/19 19:13) myalgia leflunomide [From Arava] Adverse Reaction (Verified 06/17/19 19:13) PROBLEMS WITH MY FEET simvastatin [From Zocor] Adverse Reaction (Verified 06/17/19 19:13) myalgia Home Medications: Ambulatory Orders Medication Instructions Recorded Aspirin 325 mg PO DAILY@199905/22/16 Colchicine 0.6 mg PO DAILY 05/22/16 Finasteride [Proscar] 5 mg PO DAILY 05/22/16 Levothyroxine [Synthroid] 50 mcg PO DAILY 05/22/16 Tamsulosin HCl [Flomax] 0.4 mg PO DAILY 05/22/16 nitroglycerin 0.4 mg sublingual 0.4 mg SUBLINGUAL Q5-15M PRN #25 11/16/18 tablet tab Prednisone 5 mg PO DAILY #0 02/10/19 Amiodarone HCl 200 mg PO DAILY 03/25/19 Carvedilol 6.25 mg PO BID 03/25/19 Pravastatin Sodium 20 mg PO DAILY 03/25/19 albuterol sulfate 2.5 mg INHALATION Q4H PRN 04/13/19 clopidogrel 75 mg tablet 75 mg PO DAILY #90 tab 04/19/19 Furosemide 40 mg PO DAILY 05/29/19 Hydroxychloroquine [Plaquenil] 200 mg PO DAILY 05/29/19 Cholecalciferol (Vitamin D3) 25 mcg PO DAILY 06/17/19 [Vitamin D3] Surgical History: Surgical History (Last Reviewed 06/18/19 @ 03:[address] Adam Shaw MD) History of appendectomy (Chronic) Z98.890, Z90.49 Presence of coronary angioplasty implant and graft (Chronic) Onset Date: ~09/23/06 Z95.5 PTCA and stenting of the LAD and diagonal 09/23/2006 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) Z95.810 Implant: 06/2000; Generator change: 03/17/2008 Surgical History: angioplasty, appendectomy, - - AICD, appendectomy, PCI. Psychiatric History: No pertinent psych hx Smoking Status: Former smoker Tobacco Use: Non-smoker - *Family History Paternal Family History: Family History (Last Reviewed 06/18/19 @ 03:[address] Adam Shaw MD) Mother Alzheimers disease Brother Cancer Brother Hypertension Brother CAD (coronary artery disease) Sister CAD (coronary artery disease) Sister Breast cancer History Items: Pulmonary Disease - emphysema, s/p lobectomy Maternal Family History: Family History (Last Reviewed 06/18/19 @ 03:[address] Adam Shaw MD) Mother Alzheimers disease Brother Cancer Brother Hypertension Brother CAD (coronary artery disease) Sister CAD (coronary artery disease) Sister Breast cancer History Items: Dementia, Heart Disease Sibling Family History: Family History (Last Reviewed 06/18/19 @ 03:[address] Adam Shaw MD) Mother Alzheimers disease Brother Cancer Brother Hypertension Brother CAD (coronary artery disease) Sister CAD (coronary artery disease) Sister Breast cancer History Items: Heart Disease Offspring Family History: Family History (Last Reviewed 06/18/19 @ 03:[address] Adam Shaw MD) Mother Alzheimers disease Brother Cancer Brother Hypertension Brother CAD (coronary artery disease) Sister CAD (coronary artery disease) Sister Breast cancer History Items: No pertinent history Review of Systems Constitutional: Denies: Chills, Fever, Weight Change HEENT: Denies: Head Aches, Sinus Congestion, Sinus Drainage Cardiovascular: Reports: Chest Pain. Denies: Palpitations Respiratory: Reports: Shortness of Breath. Denies: Cough, Sputum production Gastrointestinal: Denies: Abdominal Pain, Nausea, Vomiting Genitourinary: Denies: Dysuria Musculoskeletal: Denies: Joint Pain, Joint Tenderness Skin: Denies: Rash, Wounds Neurological: Denies: Numbness, Tingling, Focal weakness Psychiatric: Denies: Anxiety, Depression, Homicidal Ideations, Suicidal Ideations Hematologic/ Lymphatic: Denies: Easy Bruising, Easy Bleeding VTE Information - Inpt Only VTE Present on Admission: No VTE Mechan Device Prophylaxis: None VTE Pharm Prophylaxis ordered?: Yes Patient Problems: Active and Suspected Problems (Last Reviewed 06/17/19 @ 20:[address] Adam Shaw MD) Dysrhythmia, cardiac (Acute) Chest pain (Acute) - Physical Exam Vitals/I&O's: Vital Signs Temp Pulse Resp BP Pulse Ox 98 F 101 H 17 101/85 H 95 06/17/19 18:59 06/17/19 19:46 06/17/19 19:46 06/17/19 19:46 06/17/19 19:46 Oxygen Flow Rate (L/min) 2 Oxygen Delivery Method Nasal Cannula Weight: 90.9 kg Body Mass Index (BMI) 27.9 Intake and Output for Last 24 Hours 06/15/19 06/16/19 06/17/19 23:59 23:59 23:59 Intake Total 103 / 103 Balance 103 / 103 General: Alert, Oriented x3, Cooperative HEENT: Atraumatic, PERRLA, EOMI, Normocephalic Neck: Supple, Trachea Midline Lungs: Clear to auscultation, Normal air movement, No rhonchi, No wheeze, No rales Cardiovascular: Normal S1, Normal S2, Irregular Rate, Tachycardic, - - Thrill present Abdomen: Bowel Sounds Present, Soft, Non Tender Extremities: No edema, Capillary Refill Less than 3 Seconds Skin: No rashes, No breakdown Musculoskeletal: No Tenderness to Palpation of Joints or Extremities Neurological: Cranial nerves II-XII grossly intact Psych/Mental Status: Normal Affect, Appropriate Laboratory Results 06/17/19 19:03: WBC 6.3, RBC 4.04 L, Hgb 13.1, Hct 40.0, MCV 99.0 H, MCH 32.4 H, MCHC 32.8, RDW Std Deviation 49.2 H, RDW Coeff of [place] 13.6, Plt Count 163, MPV 9.5, Immature Gran % (Auto) 0.500, Neut % (Auto) 67.5, Lymph % (Auto) 20.5, [place] % (Auto) 10.0, Eos % (Auto) 1.0, Baso % (Auto) 0.5, Absolute Neuts (auto) 4.2, Absolute Lymphs (auto) 1.29, Nucleated RBC % 0 06/17/19 19:03: PT 13.7, INR 1.1, APTT 29.4 06/17/19 19:03: Sodium 138, Potassium 3.6, Chloride 101, Carbon Dioxide 31.0, Anion Gap 6, BUN 38 H, Creatinine 2.38 H, Estim Creat Clear Calc 25.05, Est GFR (MDRD) Af Amer 34 L, Est GFR (MDRD) Non-Af 28 L, BUN/Creatinine Ratio 16.0, Glucose 192 H, Calcium 9.6, Magnesium 2.1, Troponin I < 0.015 Current Medications Amiodarone HCl 360 mg/ (Dextrose) 200 mls @ 33.333 mls/hr CONT INF .Q6H NELI Stop: 06/18/19 01:29 Last Admin: 06/17/19 19:46 Dose: 1 mg/min, 33.3 mls/hr Documented by: Potassium Chloride () 10 meq in 100 mls @ 100 mls/hr IV BOLUS Q1H NELI Stop: 06/17/19 21:59 Assessment/Plan All Active Problems (Last Reviewed 06/17/19 @ 20:[address] Adam Shaw MD) Dysrhythmia, cardiac (Acute) Chest pain (Acute) Near syncope (Resolved) History of left heart catheterization (LHC) (Resolved ~01/05/19) Acute on chronic combined systolic and diastolic heart failure (Resolved) Chest pain (Resolved) Fatigue (Resolved) Hypoxia (Resolved) Myalgia (Resolved) The patient is a 83 year old M with a significant history of former smoker; hypothyroidism; ischemic cardiomyopathy NYHA class 3 status post coronary stents and ICD; paroxysmal ventricular tachycardia; diabetes mellitus; and CKD stage IIIb who presents emergency department with episodic chest pain and found to have nonsustained V. tach. Nonsustained V. tach At the ED, ED doc discussed the case with patient's known scientist Dr. Caceres who recommended amiodarone bolus and drip and will follow patient in patient when consulted. Amiodarone bolus and drip was started and continued on ramya diaz. However, on the diaz patient was noted to have bradycardia so amiodarone drip will be started. Will resume home amiodarone p.o. as long as his heart rate is more or equal to 60. Cardiology consult. Patient was noted to have a potassium of 3.6 at emergency department. Patient received p.o. potassium and IV potassium at emergency department. Magnesium level is appropriate. Check TSH. Chest pain Cardiac catheterization on 01/05/2019 showed for the left ventricular end- diastolic pressure; [place] multivessel CAD; not really significant.. Continue patient on home aspirin and Plavix. Troponin at the emergency department was unremarkable. Trend troponin. No further nitroglycerin at this time since patient's blood pressure is trending low on amiodarone drip. Diabetes mellitus Patient with hyperglycemia on presentation. Get A1c. Accu-Chek QA [facility] with low dose correction scale. Ischemic cardiomyopathy Echocardiogram on 12/15/2018 ejection fraction was 15%. Home Lasix continued. Coreg continued with parameters CKD stage IIIb Likely secondary to diabetes mellitus Stable. Hypothyroidism Synthroid continued. BPH Finasteride and tamsulosin continued Arthritis Prednisone continued Plaquenil continued.Patients follows up with arthritis doctor (?Commercial Field Inspector) DVT prophylaxis Subcutaneous heparin. Miscellaneous: In case patient is unable to make decisions, patient want's her daughter, Rupal Fernandez to be contacted ([phone]). Patient's daughter was contacted for review of some home meds and case discussion Inpatient E&M: [id number] Init Hosp L3
[2019-06-17] MEDS: Potassium Chloride 10mEq/100mL 10 MEQ/100 ML IV.SOLN. 100 MEQ IV BOLUS ×2 (20:30→21:42)
[2019-06-17] MEDS: Carvedilol 6.25 MG Tablet PO (22:23)
[2019-06-18] VITALS (36 sets, daily range): BP systolic 106–137; BP diastolic 50–75; PULSE 52–69; RESP 14–20; TEMP 36.6–36.8; O2SAT 93–100
[2019-06-18 05:31] LABS: Absolute Lymphocyte Count 1.61 X10^3/uL (0.83-4.51); Absolute Neutrophil Count 3.8 X10^3/uL (2.0-7.7); Basophil# 0.03 X10^3/uL; Basophil% 0.5 % (0-1); Eosinophil# 0.23 X10^3/uL; Eosinophils% 3.6 % (0-5); Hematocrit 37.7 % (40-54); Hemoglobin 12.6 g/dL (13.0-16.5); Lymphocyte # 1.61 X10^3/ul (4.0); Lymphocyte % 25.2 % (19-41); Mean Corp Hgb Conc 33.4 g/dL (32-36); Mean Corpuscular Hgb 32.4 pg (27.0-32.0); Mean Corpuscular Volume 96.9 fL (80-94); Mean Platelet Vol. 9.4 fl (6.2-12.0); Monocyte# 0.75 X10^3/uL; Monocyte% 11.7 % (0-10); NRBC Flagged by Analyzer 0 % (0-5); Neutrophil # 3.76 X10^3/uL (2.7-7.7); Neutrophil % 58.7 % (47-70); Platelet Count 154 K/mm3 (150-450); RBC Distribution Width CV 13.7 % (11.6-14.6); RBC Distribution Width SD 48.7 fl (35.1-43.9); Red Blood Count 3.89 M/mm3 (4.6-6.2); White Blood Count 6.4 K/mm3 (4.4-11.0)
[2019-06-18] MEDS: Clopidogrel Bisulfate 75 MG Tablet PO (05:40)
[2019-06-18] MEDS: Amiodarone 200 MG Tablet PO (05:40)
[2019-06-18] MEDS: Carvedilol 6.25 MG Tablet PO (05:40)
[2019-06-18] MEDS: Aspirin 325 MG Tablet PO (05:40)
[2019-06-18] MEDS: Levothyroxine 50 MCG Tablet PO (05:46)
[2019-06-18 06:06] LABS: Anion Gap 5 (5-15); BUN 36 mg/dL (7-18); BUN/Creat Ratio 17.2 RATIO (10-20); Calcium,Total 9.2 mg/dL (8.5-10.1); Chloride 101 mmol/L (98-107); Creatinine, Serum 2.09 mg/dL (0.70-1.30); EST Glomerular Filtration Rate 32 mL/min (>60); Est Glom Filt Rate - Afr Amer 39 mL/min (>60); Estimated Creatinine Clearance 28.52 ml/min; Glucose 80 mg/dL (74-106); Potassium 3.4 mmol/L (3.5-5.1); Sodium Level 137 mmol/L (136-145); Thyroid Stim Hormone (TSH) 6.89 uIU/mL (0.358-3.74)
[2019-06-18 06:55] LABS: Bedside Glucose 84 mg/dL (70-110)
[2019-06-18] MEDS: Acetaminophen 325 MG Tablet 650 MG PO (07:44)
--- NOTE | 2019-06-18 08:48 | CON.PCM_ITS ---
Problem List (1) Angina pectoris Status: Acute (2) Dysrhythmia, cardiac Status: Acute (3) CAD (coronary artery disease) Status: Chronic Qualifiers: Coronary Disease-Associated Artery/Lesion type: [place] artery [place] vs. transplanted heart: [place] heart Associated angina: with unstable angina Qualified Code(s): I25.110 - Atherosclerotic heart disease of [place] coronary artery with unstable angina pectoris (4) Presence of coronary angioplasty implant and graft Status: Chronic Comment: PTCA and stenting of the LAD and diagonal 09/23/2006 (5) Dilated cardiomyopathy Status: Chronic Comment: 15% EF (6) Paroxysmal ventricular tachycardia Status: Chronic (7) History of implantable cardioverter-defibrillator (ICD) placement Status: Chronic Comment: Implant: 06/2000; Generator change: 03/17/2008 (8) Mixed hyperlipidemia Status: Chronic (9) Essential hypertension Status: Chronic (10) Diabetes mellitus type 2 in nonobese Status: Chronic (11) Chronic renal failure, stage 3 (moderate) Status: Chronic Reason for Consult Date of Consultation: 06/18/19 History of Present Illness: The patient is a 83 year [id number] white male with a past medical history of CAD, LAD/diagonal branch PCI-remote, cardiomyopathy, paroxysmal ventricular tac hycardia, ICD, hyperlipidemia, hypertension, diabetes mellitus, chronic renal sufficiency who presents for concerns of unstable angina pectoris and recurrent cardiac dysrhythmias with recurrent paroxysmal ventricular tachycardia for further evaluation. He states recently he has been having episodes of chest discomfort which he describes as a dull discomfort and a hurting discomfort that radiates across his chest. He has been using nitroglycerin sublingual tablets at an increased rate. He has not complained of acute orthopnea or PND or worsening peripheral pitting edema. He states he can feel his heart beating but is not sure whether it is beating fast. He has had no near syncope or syncope. He states his device has not discharged. Based upon his ongoing symptoms he presented to the emergency department for further evaluation. There he was found to have a negative troponin I level. He was also found to have cardiac dysrhythmia with what appeared to be recurrent episodes of nonsustained wide- complex tachycardia compatible with nonsustained VT as well as intermittent ventricular paced beats. He was placed on IV amiodarone and placed in the PCU for further evaluation and care. Since being on the IV amiodarone heart rate appears to be in the more stable with respect to his ventricular dysrhythmia and he has not had ongoing symptoms thus far. He has been taking his medications at home as prescribed. He remains active at home. He has denied any other concerning fever, chills, night sweats, or respiratory related type symptoms. [] Past Medical History Allergies/Adverse Reactions: Allergies atorvastatin [From Lipitor] Adverse Reaction (Verified 06/17/19 19:13) myalgia leflunomide [From Arava] Adverse Reaction (Verified 06/17/19 19:13) PROBLEMS WITH MY FEET simvastatin [From Zocor] Adverse Reaction (Verified 06/17/19 19:13) myalgia Home Medications: Ambulatory Orders Medication Instructions Recorded Aspirin 325 mg PO DAILY@199905/22/16 Colchicine 0.6 mg PO DAILY 05/22/16 Finasteride [Proscar] 5 mg PO DAILY 05/22/16 Levothyroxine [Synthroid] 50 mcg PO DAILY 05/22/16 Tamsulosin HCl [Flomax] 0.4 mg PO DAILY 05/22/16 nitroglycerin 0.4 mg sublingual 0.4 mg SUBLINGUAL Q5-15M PRN #25 11/16/18 tablet tab Prednisone 5 mg PO DAILY #0 02/10/19 Amiodarone HCl 200 mg PO DAILY 03/25/19 Carvedilol 6.25 mg PO BID 03/25/19 Pravastatin Sodium 20 mg PO DAILY 03/25/19 albuterol sulfate 2.5 mg INHALATION Q4H PRN 04/13/19 clopidogrel 75 mg tablet 75 mg PO DAILY #90 tab 04/19/19 Furosemide 40 mg PO DAILY 05/29/19 Hydroxychloroquine [Plaquenil] 200 mg PO DAILY 05/29/19 Cholecalciferol (Vitamin D3) 25 mcg PO DAILY 06/17/19 [Vitamin D3] Past Medical History (Chronic Problems): Chronic Problems (Last Reviewed 06/18/19 @ 03:[address] Adam Shaw MD) CAD (coronary artery disease) (Chronic) 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) History of appendectomy (Chronic) Presence of coronary angioplasty implant and graft (Chronic ~09/23/06) PTCA and stenting of the LAD and diagonal 09/23/2006 Abnormal echocardiogram (Chronic) Mixed hyperlipidemia (Chronic) Atherosclerotic heart disease of [place] coronary artery without angina pectoris (Chronic) PTCA and stenting of the LAD and diagonal 09/23/2006 Essential hypertension (Chronic) Mixed sleep apnea (Chronic) BiPAP 17/11 mm of water with a backup rate of 12 Hypersomnolence disorder (Chronic) Dilated cardiomyopathy (Chronic) 15% EF Paroxysmal ventricular tachycardia (Chronic) Abnormal result of cardiovascular function study, unspecified (Chronic) 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) Implant: 06/2000; Generator change: 03/17/2008 Hypothyroidism, iatrogenic (Chronic) 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 Psychiatric History: No pertinent psych hx - *Family History Paternal Family History: Family History (Last Reviewed 06/18/19 @ 03:[address] Adam Shaw MD) Mother Alzheimers disease Brother Cancer Brother Hypertension Brother CAD (coronary artery disease) Sister CAD (coronary artery disease) Sister Breast cancer History Items: Pulmonary Disease - emphysema, s/p lobectomy Maternal Family History: Family History (Last Reviewed 06/18/19 @ 03:[address] Adam Shaw MD) Mother Alzheimers disease Brother Cancer Brother Hypertension Brother CAD (coronary artery disease) Sister CAD (coronary artery disease) Sister Breast cancer History Items: Dementia, Heart Disease Sibling Family History: Family History (Last Reviewed 06/18/19 @ 03:[address] Adam Shaw MD) Mother Alzheimers disease Brother Cancer Brother Hypertension Brother CAD (coronary artery disease) Sister CAD (coronary artery disease) Sister Breast cancer History Items: Heart Disease Offspring Family History: Family History (Last Reviewed 06/18/19 @ 03:[address] Adam Shaw MD) Mother Alzheimers disease Brother Cancer Brother Hypertension Brother CAD (coronary artery disease) Sister CAD (coronary artery disease) Sister Breast cancer History Items: No pertinent history Smoking Status: Former smoker Tobacco Use: Non-smoker Review of Systems - Review of Systems General: Reports: Fatigue, Weakness. Denies: Fever, Night Sweats Cardiovascular: Reports: Chest Discomfort, Chest Discomfort at Rest, P alpitations. Denies: Shortness of Breath, Orthopnea, PND, Peripheral Edema, Lightheadedness, Dizziness, Near Syncope, Syncope Respiratory: Denies: Cough, Sputum Production, Hemoptysis Gastrointestinal: Denies: Hematemesis, Hematochezia, Melena Genitourinary: Denies: Dysuria, Hematuria Skin: Denies: Rash Subjectve: This is an 83-year-old white male who appears to be resting comfortably in the supine position at this time in no acute distress. Objective: Vital Signs Temp Pulse Resp BP Pulse Ox 97.9 F 55 L 15 125/65 H 99 06/18/19 07:59 06/18/19 07:59 06/18/19 07:59 06/18/19 07:59 06/18/19 07:59 Oxygen Flow Rate (L/min) 2 Oxygen Delivery Method Nasal Cannula Weight: 195 lb 8.8 oz Body Mass Index (BMI) 27.2 Intake and Output for Last 24 Hours 06/16/19 06/17/19 06/18/19 23:59 23:59 23:59 Intake Total 890.67 / 923.97 212.33 / 212.33 Output Total 400 / 400 1050 / 1050 Balance 490.67 / 523.97 -837.67 / -837.67 General: Awake, Alert, Oriented x 3, Cooperative, No Acute Distress HEENT: Atraumatic, Normocephalic, PERRL, EOMI, Sclera Non Icteric Oral: Moist Mucosa Neck: Supple, No JVD Lungs: Clear to auscultation Cardiovascular: Regular Rhythm, Premature Ectopic Beats, Normal S1, Normal S2 Vascular: No Carotid Bruits Abdomen: Bowel Sounds Present, Soft, Non Tender Extremities: No Cyanosis, No Clubbing, No edema Neurological: No Focal Motor or Sensory Deficit Psych/Mental Status: Appropriate 06/17/19 19:03: WBC 6.3, RBC 4.04 L, Hgb 13.1, Hct 40.0, MCV 99.0 H, MCH 32.4 H, MCHC 32.8, Plt Count 163, MPV 9.5, Immature Gran % (Auto) 0.500, Neut % (Auto) 67.5, Lymph % (Auto) 20.5, [place] % (Auto) 10.0, Eos % (Auto) 1.0, Baso % (Auto) 0.5, Absolute Neuts (auto) 4.2, Nucleated RBC % 0 06/17/19 19:03: PT 13.7, INR 1.1, APTT 29.4 06/17/19 19:03: Sodium 138, Potassium 3.6, Chloride 101, Carbon Dioxide 31.0, Anion Gap 6, BUN 38 H, Creatinine 2.38 H, Est GFR (MDRD) Af Amer 34 L, Est GFR (MDRD) Non-Af 28 L, BUN/Creatinine Ratio 16.0, Glucose 192 H, Calcium 9.6, Magnesium 2.1, Troponin I < 0.015 06/17/19 19:03: Hemoglobin A1c 6.0 06/17/19 21:35: Troponin I < 0.015 06/18/19 00:40: Troponin I 0.015 06/18/19 04:39: WBC 6.4, RBC 3.89 L, Hgb 12.6 L, Hct 37.7 L, MCV 96.9 H, MCH 32.4 H, MCHC 33.4, Plt Count 154, MPV 9.4, Immature Gran % (Auto) 0.300, Neut % (Auto) 58.7, Lymph % (Auto) 25.2, [place]ole % (Auto) 11.7 H, Eos % (Auto) 3.6, Baso % (Auto) 0.5, Absolute Neuts (auto) 3.8, Nucleated RBC % 0 06/18/19 04:39: Sodium 137, Potassium 3.4 L, Chloride 101, Carbon Dioxide 31.0, Anion Gap 5, BUN 36 H, Creatinine 2.09 H, Est GFR (MDRD) Af Amer 39 L, Est GFR (MDRD) Non-Af 32 L, BUN/Creatinine Ratio 17.2, Glucose 80, Calcium 9.2 Rhythm: As noted above EKG: Unavailable at this time for review ECHO: ??2018 Interpretation Summary Moderately dilated left ventricle. Severe segmental systolic dysfunction (see wall motion). The estimated ejection fraction is 15 %. Mild global right ventricular systolic dysfunction. The left atrium is moderately enlarged. The right atrium is mildly enlarged. Mild diffuse mitral valve thickening. Mild papillary muscle dysfunction of the mitral valve. Mild-Moderate (1-2+) mitral valve insufficiency. Moderate (2+) tricuspid valve insufficiency. Mild focal aortic valve calcification. Mild (1+) aortic valve insufficiency. Mild (1+) pulmonic valve insufficiency. Borderline enlarged aortic root. Right ventricular systolic pressure estimated to be 41 mmHg. Transmitral diastolic flow velocities suggest diastolic dysfunction (pseudonormal pattern). ICD or pacer leads identified within the right atrium ICD or pacer leads identified within the right ventricle. Stress Test: 11-06-18 Stress Test Report Date: November 06, 2018 Procedure: Pharmacologic stress nuclear imaging study Indications: Chest pain Consent: Per the patient Procedure: The patient underwent pharmacologic (Regadenoson) evaluation with a peak heart rate of 85 beats per minute (62 %predicted maximal heart rate) and a peak blood pressure of 116/70 mmHg. The baseline ECG demonstrated normal sinus rhythm, nonspecific intraventricular conduction delay, possible prior anterior UT, nonspecific ST-T changes. EKG during lexiscan infusion revealed no significant change from baseline. EKG post infusion revealed no significant change from baseline [There were no cardiac dysrhythmias pretest, during pharmacologic infusion, or recovery]. [There was no complaint of chest discomfort during pharmacologic infusion or recovery]. The examination was discontinued secondary to completion of protocol. Impression: 1. Lexiscan stress test test is negative for Lexiscan infusion induced EKG changes of ischemia. 2. Lexiscan stress test test is negative for Lexiscan infusion induced chest pain. 3. Results of the nuclear portion of the test is as below Myocardial perfusion imaging study: Technique: The patient was injected with 12 millicuries of technetium 99m Cardiolite and subsequently rest SPECT Cardiolite nuclear imaging was obtained in the horizontal long, vertical long, and short axis views. The patient underwent pharmacologic (Regadenoson) evaluation. Please see above for details. The patient was injected with 31.2 millicuries of technetium 99m Cardiolite and subsequently stress SPECT Cardiolite nuclear imaging was obtained in the horizontal long, vertical long, and short axis views. A gated Cardiolite study at peak stress was obtained. Interpretation: Rest and stress SPECT Cardiolite nuclear imaging status post realignment, normalization, and attenuation correction demonstrate moderately decreased radioisotope uptake in the apex on both the rest and stress images. This is suggestive of prior apical myocardial infarction. Prior to attenuation correction there is also decreased radioisotope uptake in the inferior wall that gets better with attenuation correction suggestive of diaphragmatic attenuation artifact. There is no evidence of significant ischemia. Gated images reveal severe global hypokinesis. The reported LVEF is 18 %. Impression: 1. There is no evidence of significant ischemia. 2. Estimated ejection fraction is 18%. Cardiac Cath: 01-05-19 CORONARY ANGIOGRAPHY DOMINANCE: Right Dominant LEFT HEART ASSESSMENT Left Ventricular Ejection Fraction: Not assessed Elevated Left Ventricular End Diastolic Pressure LVEDP: 25 mmHg LEFT MAIN: distal: eccentric: 25 % Stenosis LEFT ANTERIOR DESCENDING ARTERY: PROX LAD: Previously placed stent is patent with minimal luminal irregularities MID LAD: Mild luminal irregularities, 25 % Stenosis DISTAL LAD: Mild luminal irregularities DIAGONAL 1: Proximal - Previously placed stent is patent with minimal luminal irregularities CIRCUMFLEX ARTERY: PROX CIRC: Previously placed stent is patent with minimal luminal irregularities OM 2: Mid - Mild luminal irregularities RIGHT CORONARY ARTERY: Mild luminal irregularities PROX RCA: diffuse: eccentric: 25 % Stenosis MID RCA: eccentric: 25 - 50 % Stenosis DISTAL RCA: diffuse: eccentric: 10 - 25 % Stenosis RT PDA: Proximal - Mild luminal irregularities CXR: Reported as demonstrating no acute cardiopulmonary disease with concern of a 4 mm left lung nodule with consideration to future follow-up with CT scan: Please see complete report Assessment/Plan 1. Unstable angina pectoris The patient presents with symptoms concerning for accelerating/unstable angina pectoris. He does have a history of CAD. He is undergoing evaluation. His troponin I levels are negative thus far for acute coronary syndrome/myocardial injury. He has been on medical therapy with recent adjustment. Despite that he continues with symptoms. He is also been found to have accelerating ventricular dysrhythmias. At the present time he will continue medical management. It has been recommended that he be considered for repeat evaluation in the cardiac catheterization laboratory for reassessment of his coronary arteries for need for additional revascularization therapy. The procedure and risks were discussed with the patient including concerns of IV contrast related nephropathy. The patient was agreeable to this approach. 2. Cardiac dysrhythmia/paroxysmal ventricular tachycardia The patient has a history of paroxysmal ventricular tachycardia. It appeared that in the emergency department he was having increased episodes. He has been treated with the oral amiodarone therapy. He is now on IV amiodarone therapy which appears to be assisting thus far. The concern is that this may be related to an underlying ischemic mediated focus imposed upon his cardiomyopathy. Thus at the present time he will continue medical therapy and be considered for repeat cardiac catheterization and possible PCI. 3. CAD status post PCI He does have a history of remote PCI. He underwent PTCA/stenting of the LAD/diagonal branch in August 2006. He will continue to be monitored. He will continue medical management. He will undergo evaluation as noted above. 4. Cardiomyopathy He does have a history of a cardiomyopathy. He has diminished LV systolic function. He has been on medical therapy. He does have an ICD in place. At the moment he does not have symptoms of acute CHF or pulmonary edema. He will continue medical management and evaluation as noted. 5. Paroxysmal ventricular tachycardia Again he does have a history of PVT. He has been on medical therapy. He does have an ICD in place. He states it has not discharged. 6. ICD He does have an ICD. He underwent a rater change in in 2008. He has continued his outpatient follow-ups. This can be reassessed as needed. 6. Hyperlipidemia He will continue medical management as tolerated. 7. Hypertension His blood pressure does need to be monitored as he has had issues with hypotension in the past. 8. Diabetes mellitus He will continue evaluation care per internal medicine. 9. Chronic renal sufficiency He does have a history of chronic renal insufficiency. He will continue medical evaluation and care. Again concerns of IV contrast related nephropathy were discussed with him. He is aware of this concern. He agrees to proceed with diagnostic cardiac catheterization and possible PCI. Comment: The patient's case has been discussed and reviewed with the patient and the [facility] and ED staff and Dr. Renner. This note was generated using a voice recognition system and there may be incorrect words, spelling or punctuation that were not noted when reviewing the office note prior to saving. Essential Procedure Criteria Procedure Essential: Yes Criteria Note: On 05/11/2019 the [facility] Emergency Department of [facility] ([facility]) Public Order signed by [facility] Director Kim Dumont M.D., regarding the Management of Non- Essential Surgeries and Procedures for the purpose of preserving Personal Protective Equipment (PPE) and critical hospital capacity and resources within [place] went into effect as of 05/12/2019 at 5:00PM. According to the [facility] Public Order: This action will remain in full force and effect until the State of Emergency declared by the Governor no longer exists or the Director of the [facility] rescinds or modifies this Order.. This [facility] order stated all non-essential or elective surgeries and procedures that utilize PPE should be delayed unless there is undue risk to the current or future health of a patient. After reviewing the aforementioned [facility] Public Order and the patients clinical case, I have determined that the scheduled procedure meets the criteria to go forward. Risk to Patient if Procedure Delayed: Risk of rapidly worsening to severe symptoms - Unstable angina pectoris: Ventricular tachycardia: CAD: Cardiomyopathy
--- NOTE | 2019-06-18 09:02 | CASEMGMT ---
Tertiary facilities in-network: Patient has straight MCR A and B and can go to tertiary facility of choice.
[2019-06-18] MEDS: 0.9% Normal Saline 1,000 ML 50 ML IV (09:54)
[2019-06-18 10:46] LABS: Bedside Glucose 97 mg/dL (70-110)
--- NOTE | 2019-06-18 12:08 | CL.D_ITS ---
Patient Name: KACEY LOPEZ Study Date: 06/18/2019 Performing: Yefri Caceres MD Ht: 71 inches 180 cm : 1935 Wt: 196.5 lbs 89 kg Age: 83 Gender: male BSA: 2.09 PROCEDURE(S) PERFORMED [id number] CLINICAL PROFILE AND INDICATIONS Indications: Worsening Angina, Cardiomyopathy, Cardiac Arrythmia Heart Failure: NYHA Class: 3, Newly Diagnosed: No, Heart Failure Type: Systolic Stress/Imaging Stress/Image Study Performed: No Angina Classification Anginal Classification w/in 2 Weeks: CCS IV CAD Presentations: Unstable angina. CONCLUSIONS [place] Multivessel CAD RECOMMENDATIONS Risk factor modification Medical therapy Case discussed / reviewed with Basim Garnica MD (Interventional Cardiology) DESCRIPTION OF PROCEDURE The patient arrived to the procedure lab. The risks and benefits of the procedure as well as a full d escription of our services here and current unavailability of surgical backup were fully explained to the patient and/or their significant other prior to the catheterization. The Timeout was completed, verifying the correct patient and procedure. The patient's procedural site was prepped and draped in the usual fashion. Local anesthetic was given subcutaneously to right groin region with Lidocaine 2%. Using a modified Seldinger technique, arterial access was obtained via the right femoral artery, a 4 Fr sheath was inserted Left Coronary Artery selective angiography was performed in multiple views us ing a 4 Fr. JL6 catheter. Right Coronary Artery selective angiography was then performed in multiple views using a 4 Fr. 3DRC catheter.The arterial sheath was pulled and manual compression applied until hemostasis is achieved. CORONARY ANGIOGRAPHY DOMINANCE: Right Dominant LEFT HEART ASSESSMENT Left Ventricular Ejection Fraction: Not assessed LEFT MAIN: distal: eccentric: 25 % Stenosis LEFT ANTERIOR DESCENDING ARTERY: PROX LAD: Previously placed stent is patent with mild luminal irregularities, Previously placed stent has an instent proximal: 25 - 50 % restenosis MID LAD: Mild luminal irregularities DIAGONAL 1: Proximal - Previously placed stent is patent with mild luminal irregularities CIRCUMFLEX ARTERY: PROX CIRC: eccentric: 25 % Stenosis, Previously placed stent is patent with mild luminal irregulariti es OM 1: Proximal - 25 % Stenosis (small caliber vessel) OM 2: Mid - Mild luminal irregularities RIGHT CORONARY ARTERY: PROX RCA: diffuse: eccentic: 25 % Stenosis MID RCA: eccentric: 25 - 50 % Stenosis DISTAL RCA: diffuse: eccentric: 10 - 25 % Stenosis RT PDA: Proximal - Mild luminal irregularities COMPLICATIONS No Complications PROCEDURE MEDICATIONS Versed 1 mg IV Oxygen: 2 L/min via nasal cannula SUMMARY OF HEMODYNAMIC DATA Time AIR REST ECG 11:00:51 AO 116/56 (80) SA 11:14:10 AO 141/55 (87) 11:29:07 Signed By Yefri Caceres MD On 06/18/2019 12:08:06 Yefri Caceres MD
--- NOTE | 2019-06-18 13:44 | PCM.PN.HOSP ---
Patient Problems: Active and Suspected Problems (Last Reviewed 06/18/19 @ 03:[address] Adam Shaw MD) Dysrhythmia, cardiac (Acute) Chest pain (Acute) Angina pectoris (Acute) Subjective: Feels better, chest pain is resolved Vitals/I&O's: Vital Signs Temp Pulse Resp BP Pulse Ox 97.8 F 57 L 14 106/51 L 99 06/18/19 12:07 06/18/19 13:20 06/18/19 13:20 06/18/19 13:20 06/18/19 13:20 Oxygen Flow Rate (L/min) 2 Oxygen Delivery Method Nasal Cannula Weight: 195 lb 8.8 oz Body Mass Index (BMI) 27.2 Intake and Output for Last 24 Hours 06/16/19 06/17/19 06/18/19 23:59 23:59 23:59 Intake Total 890.67 / 923.97 312.33 / 312.33 Output Total 400 / 400 1250 / 1250 Balance 490.67 / 523.97 -937.67 / -937.67 General: Alert, Oriented x3, Cooperative, No apparent distress HEENT: Atraumatic, PERRLA, EOMI, Normocephalic Oral: Moist Mucosa Neck: Supple, No JVD Lungs: Clear to auscultation, Normal air movement, No rhonchi, No wheeze, No rales Cardiovascular: Regular rate, Regular Rhythm, Normal S1, Normal S2, No murmurs Abdomen: Soft, Non Tender, Non-Distended, No Hepato-splenomegaly Extremities: No edema, Capillary Refill Less than 3 Seconds Skin: No rashes, No breakdown Neurological: Neuro grossly intact, Sensory exam intact to light touch and pain Psych/Mental Status: Normal Affect, Appropriate Laboratory Results 06/17/19 19:03: WBC 6.3, RBC 4.04 L, Hgb 13.1, Hct 40.0, MCV 99.0 H, MCH 32.4 H, MCHC 32.8, RDW Std Deviation 49.2 H, RDW Coeff of [place] 13.6, Plt Count 163, MPV 9.5, Immature Gran % (Auto) 0.500, Neut % (Auto) 67.5, Lymph % (Auto) 20.5, [place] % (Auto) 10.0, Eos % (Auto) 1.0, Baso % (Auto) 0.5, Absolute Neuts (auto) 4.2, Absolute Lymphs (auto) 1.29, Nucleated RBC % 0 06/17/19 19:03: PT 13.7, INR 1.1, APTT 29.4 06/17/19 19:03: Sodium 138, Potassium 3.6, Chloride 101, Carbon Dioxide 31.0, Anion Gap 6, BUN 38 H, Creatinine 2.38 H, Estim Creat Clear Calc 25.05, Est GFR (MDRD) Af Amer 34 L, Est GFR (MDRD) Non-Af 28 L, BUN/Creatinine Ratio 16.0, Glucose 192 H, Calcium 9.6, Magnesium 2.1, Troponin I < 0.015 06/17/19 19:03: Hemoglobin A1c 6.0 06/17/19 21:35: Troponin I < 0.015 06/18/19 00:40: Troponin I 0.015 06/18/19 04:39: WBC 6.4, RBC 3.89 L, Hgb 12.6 L, Hct 37.7 L, MCV 96.9 H, MCH 32.4 H, MCHC 33.4, RDW Std Deviation 48.7 H, RDW Coeff of [place] 13.7, Plt Count 154, MPV 9.4, Immature Gran % (Auto) 0.300, Neut % (Auto) 58.7, Lymph % (Auto) 25.2, [place] % (Auto) 11.7 H, Eos % (Auto) 3.6, Baso % (Auto) 0.5, Absolute Neuts (auto) 3.8, Absolute Lymphs (auto) 1.61, Nucleated RBC % 0 06/18/19 04:39: Sodium 137, Potassium 3.4 L, Chloride 101, Carbon Dioxide 31.0, Anion Gap 5, BUN 36 H, Creatinine 2.09 H, Estim Creat Clear Calc 28.52, Est GFR (MDRD) Af Amer 39 L, Est GFR (MDRD) Non-Af 32 L, BUN/Creatinine Ratio 17.2, Glucose 80, Calcium 9.2, TSH 6.89 H 06/18/19 06:35: POC Glucose 84 06/18/19 10:41: POC Glucose 97 Current Medications Acetaminophen (Tylenol) 650 mg PO Q6H PRN PRN PRN Reason: Pain Score 1-10/Temp > 100.7 F Last Admin: 06/18/19 07:44 Dose: 650 mg Documented by: Albuterol Sulfate (Ventolin Aerosols) 2.5 mg INHALATION Q4H PRN PRN Reason: SOB &/OR WHEEZING Aspirin (Aspirin) 325 mg PO DAILY@1999 [facility] Last Admin: 06/18/19 05:40 Dose: 325 mg Documented by: Carvedilol (Coreg) 12.5 mg PO BID [facility] Cholecalciferol (Vitamin D (25mcg)) 1,000 unit PO DAILY [facility] Clopidogrel Bisulfate (Plavix) 75 mg PO DAILY [facility] Last Admin: 06/18/19 05:40 Dose: 75 mg Documented by: Colchicine (Colchicine) 0.6 mg PO DAILY [facility] Dextrose (D50w Syringe) 0 gm IV X1 PRN; Protocol PRN Reason: Hypoglycemia Finasteride (Proscar) 5 mg PO DAILY [facility] Furosemide (Lasix) 40 mg PO DAILY [facility] Glucagon () 1 mg IM .X1 PRN PRN Reason: Hypoglycemia Heparin Sodium (Beef Lung) (Heparin 500 Unit/5 Ml (100/Ml)) 500 unit IV UD PRN PRN Reason: HEPARIN FLUSH Heparin Sodium (Porcine) (Heparin Na) 5,000 unit SC Q12 [facility] Last Admin: 06/18/19 12:42 Dose: Not Given Documented by: Sodium Chloride () 250 mls @ 15 mls/hr IV .[id number] PRN PRN Reason: Saline Flush Sodium Chloride () 250 mls @ 15 mls/hr IV .[id number] PRN PRN Reason: Additional IVPB Infusion Sodium Chloride () 1,000 mls @ 0 mls/hr IV .Q0M [facility] Sodium Chloride () 1,000 mls @ 50 mls/hr IV .Q20H [facility] Last Admin: 06/18/19 09:54 Dose: 50 mls/hr Documented by: Sodium Chloride () 1,000 mls @ 50 mls/hr IV .Q20H [facility] Last Admin: 06/18/19 12:45 Dose: Not Given Documented by: Amiodarone HCl 360 mg/ (Dextrose) 200 mls @ 33.333 mls/hr CONT INF .Q6H [facility] Stop: 06/18/19 19:29 Amiodarone HCl 360 mg/ (Dextrose) 200 mls @ 16.667 mls/hr CONT INF .Q12H [facility] Stop: 06/19/19 13:29 Insulin Human Lispro (Humalog Lucipen (Bkc)) 0 unit SC ACHS [facility]; Protocol Last Admin: 06/18/19 11:53 Dose: Not Given Documented by: Labetalol HCl (Trandate) 5 mg IV X1 PRN PRN Reason: SBP > 160 prior to sheath pull Stop: 06/20/19 11:51 Levothyroxine Sodium (Synthroid) 50 mcg PO DAILY@0600 [facility] Last Admin: 06/18/19 05:46 Dose: 50 mcg Documented by: Pravastatin Sodium (Pravachol) 20 mg PO DAILY [facility] Prednisone () 5 mg PO DAILY [facility] Sodium Chloride () 10 - 40 ml IV UD PRN PRN Reason: SALINE FLUSH Tamsulosin HCl (Flomax) 0.4 mg PO DAILY [facility] STROKE Vital Signs/Narrative: Vital Signs Temp Pulse Resp BP Pulse Ox 06/18/19 13:20 57 L 14 106/51 L 99 06/18/19 12:50 61 14 118/50 L 99 06/18/19 12:36 63 15 137/65 H 100 06/18/19 12:21 60 14 128/66 H 99 06/18/19 12:07 97.8 F 60 15 135/67 H 100 Medical Necessity - Tobacco Use Smoking Status: Former smoker Tobacco Use: Non-smoker Assessment/Plan All Active Problems (Last Reviewed 06/18/19 @ 03:[address] Adam Shaw MD) Dysrhythmia, cardiac (Acute) Chest pain (Acute) Angina pectoris (Acute) Near syncope (Resolved) History of left heart catheterization (LHC) (Resolved ~01/05/19) Acute on chronic combined systolic and diastolic heart failure (Resolved) Chest pain (Resolved) Fatigue (Resolved) Hypoxia (Resolved) Myalgia (Resolved) 1. Unstable angina/cardiac dysrhythmia/paroxysmal VT/CAD status post PCI/chronic systolic CHF/pacemaker in place/HLD/HTN/CAD status post stent -Post cardiac cath with normal coronary arteries -Continue with both p.o. amiodarone as well as an amiodarone drip -As of his pacemaker, he will be able to tolerate a decent amount of bradycardia -EF is 15% -Troponin was unremarkable -TSH is elevated, but he is on amiodarone, can monitor as an outpatient -Creatinine appears to be slightly improved from admission from 2.38 down to 2.09 -Continue with his aspirin, Plavix, statin, continue with Coreg 2. CKD 3 -Creatinine is at baseline -We will monitor given cardiac cath 3. Hypothyroidism -States is elevated to 6.3 but he is on amiodarone at home -Continue with his home Synthroid 4. Arthritis -Unknown type but he does see a asphalt engineer -We will hold his Plaquenil since it is in short supply -Continue with prednisone 5. BPH -Stable -Continue with finasteride and Flomax DVT: Heparin Inpatient E&M: 21229 Subs Hosp L2
[2019-06-18] MEDS: Pravastatin 20 MG Tablet PO (14:05)
[2019-06-18] MEDS: Tamsulosin HCl 0.4 MG Capsule PO (14:05)
[2019-06-18] MEDS: predniSONE 5 MG Tablet PO (14:06)
[2019-06-18] MEDS: Furosemide 40 MG Tablet PO (14:06)
[2019-06-18] MEDS: Finasteride 5 MG Tablet PO (14:06)
[2019-06-18] MEDS: Amiodarone 360 MG in Dextrose 5% Viaflo Bag 192.8 ML 33.3 MG CONT INF (14:16)
--- NOTE | 2019-06-18 15:50 | CASEMGMT ---
DEAN ROWAN Face to Face with patient for initial transition planning/care coordination assessment. RN CM introduced self and role at [facility]. Patient lying in bed, alert and oriented. Patient willing to participate in assessment and is able to answer all questions appropriately. Care providers, pharmacy, and demographics verified. Patient wishes to discharge home, denies need for home health at this time. Patient states he has no further needs or concerns at this time. CM to follow for discharge planning needs that may arise. PCP: Edwin Specialists: Morris, public affairs manager; Paras mud car worker Preferred Pharmacy: [facility] Insurance: [employer] Prescription Benefit: yes Living Will/HPOA: yes, but not on file. Could note state who is HPOA LNOK: Living Arrangements: Patient lives with in 2 story home with bed and bath on first floor. Patient states he is independent at home. Transportation: self/ DME/HHC: Patient states he has shower chair, raised toilet, cane, walker, cpap, and nebulizer at home. Patient denies previous SNF or HHC. Disposition Plan: Patient to discharge home with family support and follow-up plans in place. [place] PA, RN, CM
[2019-06-18 17:16] LABS: Bedside Glucose 133 mg/dL (70-110)
[2019-06-18] MEDS: Amiodarone 360 MG in Dextrose 5% Viaflo Bag 192.8 ML 16.7 MG CONT INF (20:21)
[2019-06-18] MEDS: Carvedilol 12.5 MG Tablet PO (22:21)
[2019-06-18] MEDS: Amiodarone 200 MG Tablet 400 MG PO (22:21)
[2019-06-18] MEDS: Heparin Injection (Vial) 5,000 UNIT/ML VIAL 5000 UNIT SC (22:22)
[2019-06-18 22:31] LABS: Bedside Glucose 124 mg/dL (70-110)
[2019-06-19] VITALS (20 sets, daily range): BP systolic 105–129; BP diastolic 49–84; PULSE 59–77; RESP 14–19; TEMP 36.7–36.9; O2SAT 92–98
[2019-06-19] MEDS: 0.9% Normal Saline 1,000 ML 50 ML IV (03:31)
[2019-06-19] MEDS: Levothyroxine 50 MCG Tablet PO (06:30)
[2019-06-19 06:56] LABS: Bedside Glucose 98 mg/dL (70-110)
[2019-06-19] MEDS: predniSONE 5 MG Tablet PO (08:33)
[2019-06-19] MEDS: Amiodarone 200 MG Tablet 400 MG PO ×2 (08:33→22:06)
[2019-06-19] MEDS: Carvedilol 12.5 MG Tablet PO ×2 (08:33→22:07)
[2019-06-19] MEDS: Pravastatin 20 MG Tablet PO (08:34)
[2019-06-19] MEDS: Clopidogrel Bisulfate 75 MG Tablet PO (08:34)
[2019-06-19] MEDS: Tamsulosin HCl 0.4 MG Capsule PO (08:34)
[2019-06-19] MEDS: Furosemide 40 MG Tablet PO (08:35)
[2019-06-19] MEDS: Heparin Injection (Vial) 5,000 UNIT/ML VIAL 5000 UNIT SC ×2 (08:35→22:06)
[2019-06-19] MEDS: Finasteride 5 MG Tablet PO (08:36)
--- NOTE | 2019-06-19 09:28 | PN_ITS ---
Patient Problems: Active and Suspected Problems (Last Updated 06/18/19 @ 16:22 by Migdalia Fisher) Dysrhythmia, cardiac (Acute) Chest pain (Acute) Angina pectoris (Acute) Subjective: Doing well, did not sleep well overnight however no issues. Chest pain is resolved Vitals/I&O's: Vital Signs Temp Pulse Resp BP Pulse Ox 98.2 F 59 L 18 123/65 H 96 06/19/19 06:15 06/19/19 07:00 06/19/19 06:15 06/19/19 06:15 06/19/19 07:24 Oxygen Flow Rate (L/min) 2 Oxygen Delivery Method Room Air Weight: 195 lb 8.8 oz Body Mass Index (BMI) 27.2 Intake and Output for Last 24 Hours 06/17/19 06/18/19 06/19/19 23:59 23:59 23:59 Intake Total 890.67 / 923.97 1080.78 / 1830.78 1947.73 / 1947.73 Output Total 400 / 400 2125 / 3475 1925 / 1925 Balance 490.67 / 523.97 -1044.22 / -1644.22 22.73 / 22.73 General: Alert, Oriented x3, Cooperative, No apparent distress HEENT: Atraumatic, PERRLA, EOMI, Normocephalic Oral: Moist Mucosa Neck: Supple, No JVD Lungs: Clear to auscultation, Normal air movement, No rhonchi, No wheeze, No rales Cardiovascular: Regular rate, Regular Rhythm, Normal S1, Normal S2, No murmurs Abdomen: Soft, Non Tender, Non-Distended, No Hepato-splenomegaly Extremities: No edema, Capillary Refill Less than 3 Seconds Skin: No rashes, No breakdown Neurological: Neuro grossly intact, Sensory exam intact to light touch and pain Psych/Mental Status: Normal Affect, Appropriate Laboratory Results 06/18/19 10:41: POC Glucose 97 06/18/19 17:05: POC Glucose 133 H 06/18/19 22:20: POC Glucose 124 H 06/19/19 06:28: POC Glucose 98 Current Medications Acetaminophen (Tylenol) 650 mg PO Q6H PRN PRN PRN Reason: Pain Score 1-10/Temp > 100.7 F Last Admin: 06/18/19 07:44 Dose: 650 mg Documented by: Albuterol Sulfate (Ventolin Aerosols) 2.5 mg INHALATION Q4H PRN PRN Reason: SOB &/OR WHEEZING Amiodarone HCl (Cordarone) 400 mg PO BID [facility] Last Admin: 06/19/19 08:33 Dose: 400 mg Documented by: Aspirin (Aspirin) 325 mg PO DAILY@1999 [facility] Last Admin: 06/18/19 05:40 Dose: 325 mg Documented by: Carvedilol (Coreg) 12.5 mg PO BID [facility] Last Admin: 06/19/19 08:33 Dose: 12.5 mg Documented by: Cholecalciferol (Vitamin D (25mcg)) 1,000 unit PO DAILY [facility] Last Admin: 06/19/19 08:36 Dose: 1,000 unit Documented by: Clopidogrel Bisulfate (Plavix) 75 mg PO DAILY [facility] Last Admin: 06/19/19 08:34 Dose: 75 mg Documented by: Colchicine (Colchicine) 0.6 mg PO DAILY [facility] Last Admin: 06/19/19 08:35 Dose: 0.6 mg Documented by: Dextrose (D50w Syringe) 0 gm IV X1 PRN; Protocol PRN Reason: Hypoglycemia Finasteride (Proscar) 5 mg PO DAILY [facility] Last Admin: 06/19/19 08:36 Dose: 5 mg Documented by: Furosemide (Lasix) 40 mg PO DAILY [facility] Last Admin: 06/19/19 08:35 Dose: 40 mg Documented by: Glucagon () 1 mg IM .X1 PRN PRN Reason: Hypoglycemia Heparin Sodium (Beef Lung) (Heparin 500 Unit/5 Ml (100/Ml)) 500 unit IV UD PRN PRN Reason: HEPARIN FLUSH Heparin Sodium (Porcine) (Heparin Na) 5,000 unit SC Q12 [facility] Last Admin: 06/19/19 08:35 Dose: 5,000 unit Documented by: Sodium Chloride () 250 mls @ 15 mls/hr IV .[id number] PRN PRN Reason: Saline Flush Sodium Chloride () 250 mls @ 15 mls/hr IV .[id number] PRN PRN Reason: Additional IVPB Infusion Sodium Chloride () 1,000 mls @ 0 mls/hr IV .Q0M [facility] Sodium Chloride () 1,000 mls @ 50 mls/hr IV .Q20H [facility] Last Admin: 06/19/19 03:31 Dose: 50 mls/hr Documented by: Sodium Chloride () 1,000 mls @ 50 mls/hr IV .Q20H [facility] Last Admin: 06/18/19 12:45 Dose: Not Given Documented by: Amiodarone HCl 360 mg/ (Dextrose) 200 mls @ 16.667 mls/hr CONT INF .Q12H [facility] Stop: 06/19/19 13:29 Last Infusion: 06/19/19 06:15 Dose: 0.5 mg/min, 16.7 mls/hr Documented by: Insulin Human Lispro (Humalog Kwikpen (Bkc)) 0 unit SC ACHS [facility]; Protocol Last Admin: 06/19/19 06:30 Dose: Not Given Documented by: Labetalol HCl (Trandate) 5 mg IV X1 PRN PRN Reason: SBP > 160 prior to sheath pull Stop: 06/20/19 11:51 Levothyroxine Sodium (Synthroid) 50 mcg PO DAILY@0600 [facility] Last Admin: 06/19/19 06:30 Dose: 50 mcg Documented by: Pravastatin Sodium (Pravachol) 20 mg PO DAILY [facility] Last Admin: 06/19/19 08:34 Dose: 20 mg Documented by: Prednisone () 5 mg PO DAILY [facility] Last Admin: 06/19/19 08:33 Dose: 5 mg Documented by: Sodium Chloride () 10 - 40 ml IV UD PRN PRN Reason: SALINE FLUSH Tamsulosin HCl (Flomax) 0.4 mg PO DAILY [facility] Last Admin: 06/19/19 08:34 Dose: 0.4 mg Documented by: STROKE Vital Signs/Narrative: Vital Signs Temp Pulse Resp BP Pulse Ox 06/19/19 07:24 96 06/19/19 07:00 59 L 06/19/19 06:15 98.2 F 64 18 123/65 H 98 06/19/19 06:00 98.2 F 64 18 123/65 H 98 Medical Necessity - Tobacco Use Smoking Status: Former smoker Tobacco Use: Non-smoker Assessment/Plan All Active Problems (Last Updated 06/18/19 @ 16:22 by Migdalia Fisher) Dysrhythmia, cardiac (Acute) Chest pain (Acute) Angina pectoris (Acute) Near syncope (Resolved) History of left heart catheterization (LHC) (Resolved ~06/18/19) Acute on chronic combined systolic and diastolic heart failure (Resolved) Chest pain (Resolved) Fatigue (Resolved) Hypoxia (Resolved) Myalgia (Resolved) 1. Unstable angina/cardiac dysrhythmia/paroxysmal VT/CAD status post PCI/chronic systolic CHF/pacemaker in place/HLD/HTN/CAD status post stent -Post cardiac cath with normal coronary arteries -Continue with both p.o. amiodarone as well as an amiodarone drip, will continue to monitor -Since he has a pacemaker, he will be able to tolerate a decent amount of bradycardia -EF is 15% -Troponin was unremarkable -TSH is elevated, but he is on amiodarone, can monitor as an outpatient -Creatinine appears to be slightly improved from admission from 2.38 down to 2.09 -Continue with his aspirin, Plavix, statin, continue with Coreg 2. CKD 3 -Creatinine is at baseline -We will monitor given cardiac cath 3. Hypothyroidism -States is elevated to 6.3 but he is on amiodarone at home -Continue with his home Synthroid 4. 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 BPH -Stable -Continue with finasteride and Flomax DVT: Heparin Inpatient E&M: [id number] [facility] Hosp L2
--- NOTE | 2019-06-19 11:31 | PN.CARD_ITS ---
Subjectve: The patient states he feels better overall. He denies any recurrent chest discomfort. He has had no symptoms of acute shortness of breath or dyspnea. He has not sensed any palpitations or rapid rates. His ICD has not discharged. Objective: Vital Signs Temp Pulse Resp BP Pulse Ox 98.2 F 67 17 107/49 L 94 06/19/19 06:15 06/19/19 09:00 06/19/19 09:00 06/19/19 09:00 06/19/19 09:00 Oxygen Flow Rate (L/min) 2 Oxygen Delivery Method Room Air Weight: 195 lb 8.8 oz Body Mass Index (BMI) 27.2 Intake and Output for Last 24 Hours 06/17/19 06/18/19 06/19/19 23:59 23:59 23:59 Intake Total 890.67 / 923.97 1080.78 / 1830.78 1982.38 / 1981.38 Output Total 400 / 400 2125 / 3475 1925 / 1925 Balance 490.67 / 523.97 -1044.22 / -1644.22 57.38 / 57.38 General: Awake, Alert, Oriented x 3, Cooperative, No Acute Distress HEENT: Atraumatic, Normocephalic, PERRL, EOMI, Sclera Non Icteric Oral: Moist Mucosa Neck: Supple, Good ROM, No JVD Lungs: Clear to auscultation Cardiovascular: Regular Rhythm, Premature Ectopic Beats, Normal S1, Normal S2 Vascular: No Carotid Bruits, Normal Femoral Pulses Abdomen: Bowel Sounds Present, Soft, Non Tender Extremities: No edema Neurological: No Focal Motor or Sensory Deficit Psych/Mental Status: Appropriate Rhythm: Sinus rhythm; electronic ventricular paced rhythm; PVCs; irregular wide- complex tachycardia potentially compatible with a combination of sinus rhythm with repetitive PVCs versus brief episodes of nonsustained VT Cardiac catheterization: CONCLUSIONS [place] Multivessel CAD RECOMMENDATIONS Risk factor modification Medical therapy Case discussed / reviewed with Basim Garnica MD (Interventional Cardiology) DESCRIPTION OF PROCEDURE The patient arrived to the procedure lab. The risks and benefits of the procedure as well as a full description of our services here and current unavailability of surgical backup were fully explained to the patient and/or their significant other prior to the catheterization. The Timeout was completed, verifying the correct patient and procedure. The patient's procedural site was prepped and draped in the usual fashion. Local anesthetic was given subcutaneously to right groin region with Lidocaine 2%. Using a modified Seldinger technique, arterial access was obtained via the right femoral artery, a 4Fr sheath was inserted Left Coronary Artery selective angiography was performed in multiple views using a 4 Fr. JL6 catheter. Right Coronary Artery selective angiography was then performed in multiple views using a 4 Fr. 3DRC catheter.The arterial sheath was pulled and manual compression applied until hemostasis is achieved. CORONARY ANGIOGRAPHY DOMINANCE: Right Dominant LEFT HEART ASSESSMENT Left Ventricular Ejection Fraction: Not assessed LEFT MAIN: distal: eccentric: 25 % Stenosis LEFT ANTERIOR DESCENDING ARTERY: PROX LAD: Previously placed stent is patent with mild luminal irregularities, Previously placed stent has an instent proximal: 25 - 50 % restenosis MID LAD: Mild luminal irregularities DIAGONAL 1: Proximal - Previously placed stent is patent with mild luminal irregularities CIRCUMFLEX ARTERY: PROX CIRC: eccentric: 25 % Stenosis, Previously placed stent is patent with mild luminal irregularities OM 1: Proximal - 25 % Stenosis (small caliber vessel) OM 2: Mid - Mild luminal irregularities RIGHT CORONARY ARTERY: PROX RCA: diffuse: eccentic: 25 % Stenosis MID RCA: eccentric: 25 - 50 % Stenosis DISTAL RCA: diffuse: eccentric: 10 - 25 % Stenosis RT PDA: Proximal - Mild luminal irregularities Medical Necessity - Tobacco Use Smoking Status: Former smoker Tobacco Use: Non-smoker Assessment/Plan 1. Unstable angina pectoris The patient presents with symptoms concerning for accelerating/unstable angina pectoris. He does have a history of CAD. He is undergoing evaluation. His troponin I levels are negative thus far for acute coronary syndrome/myocardial injury. He has been on medical therapy with recent adjustment. Has undergone further evaluation with diagnostic cardiac catheterization as note d. At the present time he is continuing medical management. His beta-teetee dose has been increased. Also as his symptoms may be brought on by his cardiac dysrhythmia he is undergone additional antiarrhythmic therapy with IV amiodarone. He is now being switched to oral amiodarone at an increased dose. Overall he has been without recurrent symptoms. He will continue to be followed. 2. Cardiac dysrhythmia/paroxysmal ventricular tachycardia The patient has a history of paroxysmal ventricular tachycardia. It appeared that in the emergency department he was having increased episodes. He has been treated with the oral amiodarone therapy. At the present time he is transitioning from IV amiodarone to oral amiodarone at 400 mg twice daily. He will continue this dose for period of time with the hope of decreasing to 400 mg daily. This will be as long as he is remaining symptomatically and hemodynamically stable. If his rhythm becomes more problematic to control and associated with other symptoms or events he may need to be considered for dual antiarrhythmic therapy which may include agents such as mexiletine and/or referral to a tertiary care center for further EP consultation, etc. 3. CAD status post PCI He does have a history of remote PCI. He underwent PTCA/stenting of the LAD/diagonal branch in August 2006. He will continue to be monitored. He will continue medical management. 4. Cardiomyopathy He does have a history of a cardiomyopathy. He has diminished LV systolic function. He has been on medical therapy. He does have an ICD in place. At the moment he does not have symptoms of acute CHF or pulmonary edema. He will continue medical management and evaluation as noted. 5. Paroxysmal ventricular tachycardia Again he does have a history of PVT. He has been on medical therapy. He does have an ICD in place. He states it has not discharged. 6. ICD He does have an ICD. He underwent a generator change in in 2008. He has continued his outpatient follow-ups. This can be reassessed as needed. 6. Hyperlipidemia He will continue medical management as tolerated. 7. Hypertension His blood pressure does need to be monitored as he has had issues with hypotension in the past. 8. Diabetes mellitus He will continue evaluation care per internal medicine. 9. Chronic renal sufficiency He does have a history of chronic renal insufficiency. He will continue medical evaluation and care. He will have BMP follow-up. Comment: The patient's case has been discussed and reviewed with the patient and Dr. Renner. This note was generated using a voice recognition system and there may be incorrect words, spelling or punctuation that were not noted when reviewing the office note prior to saving.
[2019-06-19] MEDS: Insulin Lispro 100 UNIT/ML INSULN.PEN SC (11:47)
--- NOTE | 2019-06-19 12:01 | NURSING ---
Milana MORAN called Patients Daughter Nevin to give update on patients Plan of care. Questions answered.
[2019-06-19 12:21] LABS: Bedside Glucose 173 mg/dL (70-110)
[2019-06-19 12:26] LABS: Anion Gap 5 (5-15); BUN 33 mg/dL (7-18); BUN/Creat Ratio 15.9 RATIO (10-20); Chloride 106 mmol/L (98-107); Creatinine, Serum 2.08 mg/dL (0.70-1.30); EST Glomerular Filtration Rate 33 mL/min (>60); Est Glom Filt Rate - Afr Amer 39 mL/min (>60); Estimated Creatinine Clearance 28.66 ml/min; Glucose 140 mg/dL (74-106); Potassium 3.6 mmol/L (3.5-5.1); Sodium Level 141 mmol/L (136-145)
[2019-06-19 17:01] LABS: Bedside Glucose 125 mg/dL (70-110)
[2019-06-19] MEDS: Aspirin 325 MG Tablet PO (22:07)
[2019-06-19 22:16] LABS: Bedside Glucose 114 mg/dL (70-110)
[2019-06-20] VITALS: PULSE 63
[2019-06-20 04:00] VITALS: BP 105/81; PULSE 64; PULSE 67; RESP 16; TEMP 36.8; O2SAT 98
[2019-06-20] MEDS: Levothyroxine 50 MCG Tablet PO (05:16)
[2019-06-20 05:42] LABS: Absolute Lymphocyte Count 1.46 X10^3/uL (0.83-4.51); Absolute Neutrophil Count 4.8 X10^3/uL (2.0-7.7); Basophil# 0.04 X10^3/uL; Basophil% 0.5 % (0-1); Eosinophil# 0.28 X10^3/uL; Eosinophils% 3.8 % (0-5); Hematocrit 39.6 % (40-54); Hemoglobin 12.9 g/dL (13.0-16.5); Lymphocyte # 1.46 X10^3/ul (4.0); Lymphocyte % 19.9 % (19-41); Mean Corp Hgb Conc 32.6 g/dL (32-36); Mean Corpuscular Hgb 32.1 pg (27.0-32.0); Mean Corpuscular Volume 98.5 fL (80-94); Mean Platelet Vol. 9.4 fl (6.2-12.0); Monocyte# 0.77 X10^3/uL; Monocyte% 10.5 % (0-10); NRBC Flagged by Analyzer 0 % (0-5); Neutrophil # 4.77 X10^3/uL (2.7-7.7); Neutrophil % 65.2 % (47-70); Platelet Count 155 K/mm3 (150-450); RBC Distribution Width CV 13.7 % (11.6-14.6); Red Blood Count 4.02 M/mm3 (4.6-6.2); White Blood Count 7.3 K/mm3 (4.4-11.0)
[2019-06-20 05:52] LABS: Anion Gap 6 (5-15); BUN 36 mg/dL (7-18); Calcium,Total 9.5 mg/dL (8.5-10.1); Chloride 108 mmol/L (98-107); EST Glomerular Filtration Rate 34 mL/min (>60); Est Glom Filt Rate - Afr Amer 41 mL/min (>60); Estimated Creatinine Clearance 29.81 ml/min; Glucose 87 mg/dL (74-106); Potassium 4.2 mmol/L (3.5-5.1); Sodium Level 143 mmol/L (136-145)
[2019-06-20 07:00] VITALS: PULSE 68
[2019-06-20 07:01] LABS: Bedside Glucose 88 mg/dL (70-110)
[2019-06-20 07:59] VITALS: O2SAT 97
[2019-06-20 08:58] VITALS: BP 113/67; PULSE 64; RESP 14; TEMP 37; O2SAT 96
[2019-06-20] MEDS: predniSONE 5 MG Tablet PO (09:00)
[2019-06-20] MEDS: Amiodarone 200 MG Tablet 400 MG PO (09:00)
[2019-06-20] MEDS: Carvedilol 12.5 MG Tablet PO (09:00)
[2019-06-20] MEDS: Tamsulosin HCl 0.4 MG Capsule PO (09:01)
[2019-06-20] MEDS: Pravastatin 20 MG Tablet PO (09:01)
[2019-06-20] MEDS: Finasteride 5 MG Tablet PO (09:01)
[2019-06-20] MEDS: Furosemide 40 MG Tablet PO (09:01)
[2019-06-20] MEDS: Clopidogrel Bisulfate 75 MG Tablet PO (09:01)
[2019-06-20] MEDS: Heparin Injection (Vial) 5,000 UNIT/ML VIAL 5000 UNIT SC (09:05)
--- NOTE | 2019-06-20 10:20 | PN.CARD_ITS ---
Subjectve: The patient appears to be resting comfortably. He denies any ongoing chest discomfort, difficulty breathing, palpitations, or rapid heart rates. Objective: Vital Signs Temp Pulse Resp BP Pulse Ox 98.6 F 64 14 113/67 96 06/20/19 08:58 06/20/19 08:58 06/20/19 08:58 06/20/19 08:58 06/20/19 08:58 Oxygen Flow Rate (L/min) 2 Oxygen Delivery Method Room Air Weight: 195 lb 8.8 oz Body Mass Index (BMI) 27.2 Intake and Output for Last 24 Hours 06/18/19 06/19/19 06/20/19 23:59 23:59 23:59 Intake Total 1080.78 / 1830.78 2731.55 / 2731.55 Output Total 2125 / 3475 3800 / 3800 250 / 250 Balance -1044.22 / -1644.22 -1068.45 / -1068.45 -250 / -250 General: Awake, Alert, Oriented x 3, Cooperative, No Acute Distress HEENT: Atraumatic, Normocephalic, PERRL, EOMI, Sclera Non Icteric Oral: Moist Mucosa Neck: Supple, Good ROM, No JVD Lungs: Clear to auscultation Cardiovascular: Regular Rhythm, Normal S1, Normal S2 Vascular: No Carotid Bruits Abdomen: Bowel Sounds Present, Soft, Non Tender Extremities: No Cyanosis, No Clubbing, No edema Psych/Mental Status: Appropriate 06/19/19 11:33: Sodium 141, Potassium 3.6, Chloride 106, Carbon Dioxide 30.0, Anion Gap 5, BUN 33 H, Creatinine 2.08 H, Est GFR (MDRD) Af Amer 39 L, Est GFR (MDRD) Non-Af 33 L, BUN/Creatinine Ratio 15.9, Glucose 140 H, Calcium 9.0 06/20/19 05:26: WBC 7.3, RBC 4.02 L, Hgb 12.9 L, Hct 39.6 L, MCV 98.5 H, MCH 32.1 H, MCHC 32.6, Plt Count 155, MPV 9.4, Immature Gran % (Auto) 0.100, Neut % (Auto) 65.2, Lymph % (Auto) 19.9, [place] % (Auto) 10.5 H, Eos % (Auto) 3.8, Baso % (Auto) 0.5, Absolute Neuts (auto) 4.8, Nucleated RBC % 0 06/20/19 05:26: Sodium 143, Potassium 4.2, Chloride 108 H, Carbon Dioxide 29.0, Anion Gap 6, BUN 36 H, Creatinine 2.00 H, Est GFR (MDRD) Af Amer 41 L, Est GFR (MDRD) Non-Af 34 L, BUN/Creatinine Ratio 18.0, Glucose 87, Calcium 9.5 Rhythm: Sinus rhythm Medical Necessity - Tobacco Use Smoking Status: Former smoker Tobacco Use: Non-smoker Assessment/Plan 1. Unstable angina pectoris The patient presents with symptoms concerning for accelerating/unstable angina pectoris. He does have a history of CAD. He is undergoing evaluation. His troponin I levels are negative thus far for acute coronary syndrome/myocardial injury. He has been on medical therapy with recent adjustment. Has undergone further evaluation with diagnostic cardiac catheterization as noted. At the present time he is continuing medical management. His beta-teetee dose has been increased. Appears to be tolerating this thus far. Also as his symptoms may be brought on by his cardiac dysrhythmia he is undergone additional antiarrhythmic therapy with IV amiodarone. He has been changed to oral amiodarone therapy. Overall he has been without recurrent symptoms. He will continue to be followed. 2. Cardiac dysrhythmia/paroxysmal ventricular tachycardia The patient has a history of paroxysmal ventricular tachycardia. It appeared that in the emergency department he was having increased episodes. He has been treated with the oral amiodarone therapy. At the present time he is transitioning from IV amiodarone to oral amiodarone at 400 mg twice daily. It would be reasonable to continue him on amiodarone at 400 mg twice daily for period of time-such as 2 weeks-and then decrease his dose to 400 mg p.o. daily. If his rhythm becomes more problematic to control and associated with other symptoms or events he may need to be considered for dual antiarrhythmic therapy which may include agents such as mexiletine and/or referral to a tertiary care center for further EP consultation, etc. 3. CAD status post PCI He does have a history of remote PCI. He underwent PTCA/stenting of the LAD/diagonal branch in August 2006. He will continue to be monitored. He will continue medical management. 4. Cardiomyopathy He does have a history of a cardiomyopathy. He has diminished LV systolic function. He has been on medical therapy. He does have an ICD in place. At the moment he does not have symptoms of acute CHF or pulmonary edema. He will continue medical management and evaluation as noted. 5. Paroxysmal ventricular tachycardia Again he does have a history of PVT. He has been on medical therapy. He does have an ICD in place. He states it has not discharged. 6. ICD He does have an ICD. He underwent a generator change in in 2008. He has continued his outpatient follow-ups. 6. Hyperlipidemia He will continue medical management as tolerated. 7. Hypertension His blood pressure does need to be monitored as he has had issues with hypotension in the past. 8. Diabetes mellitus He will continue evaluation care per internal medicine. 9. Chronic renal sufficiency He does have a history of chronic renal insufficiency. He will continue medical evaluation and care. He will have BMP follow-up. Overall, the present time, the tentative plan is to continue medical therapy with increased beta-teetee dose and increase amiodarone dose with subsequent taper with continued outpatient follow-up and outpatient ICD interrogation. Comment: The patient's case has been discussed and reviewed with the patient and Dr. Renner. This note was generated using a voice recognition system and there may be incorrect words, spelling or punctuation that were not noted when reviewing the office note prior to saving.
--- NOTE | 2019-06-20 11:04 | DCINST_ITS ---
- Discharge Diagnoses Current Active Problems: Current Active and Chronic Problems (Last Updated 06/18/19 @ 16:22 by Migdalia Fisher) Dysrhythmia, cardiac (Acute) Chest pain (Acute) Angina pectoris (Acute) CAD (coronary artery disease) (Chronic) You will use the following diet at home:: Cardiac Your food should be the consistency of: Regular Your liquids should be the consistency of: Regular/Thin Discharge Activity: Return to Normal Activity Call your doctor if you observe: Fever of 101 or Higher, Shortness of breath, Dizziness, Fainting spells, Swelling in the ankles, Chest pain, Increased palpitations (irregular heartbeat) Allergies/Adverse Reactions: Allergies atorvastatin [From Lipitor] Adverse Reaction (Verified 06/17/19 19:13) myalgia leflunomide [From Arava] Adverse Reaction (Verified 06/17/19 19:13) PROBLEMS WITH MY FEET simvastatin [From Zocor] Adverse Reaction (Verified 06/17/19 19:13) myalgia Medications to take at Discharge Aspirin 325 mg PO DAILY@199905/22/16 Colchicine 0.6 mg PO DAILY 05/22/16 Finasteride [Proscar] 5 mg PO DAILY 05/22/16 Levothyroxine [Synthroid] 50 mcg PO DAILY 05/22/16 Tamsulosin HCl [Flomax] 0.4 mg PO DAILY 05/22/16 nitroglycerin 0.4 mg sublingual tablet 0.4 mg SUBLINGUAL Q5-15M PRN #25 tab 11/16/18 Prednisone 5 mg PO DAILY #0 02/10/19 Pravastatin Sodium 20 mg PO DAILY 03/25/19 albuterol sulfate 2.5 mg INHALATION Q4H PRN 04/13/19 clopidogrel 75 mg tablet 75 mg PO DAILY #90 tab 04/19/19 Furosemide 40 mg PO DAILY 05/29/19 Hydroxychloroquine [Plaquenil] 200 mg PO DAILY 05/29/19 Cholecalciferol (Vitamin D3) [Vitamin D3] 25 mcg PO DAILY 06/17/19 Amiodarone HCl [Cordarone] 400 mg PO BID #120 tab 06/20/19 Carvedilol [Coreg (Beta Karri)] 12.5 mg PO BID #60 tab 06/20/19 The following prescriptions were given: Amiodarone HCl [Cordarone] 400 mg PO BID #120 tab Transmission Status: Pending to [facility] Carvedilol [Coreg (Beta Karri)] 12.5 mg PO BID #60 tab Transmission Status: Pending to [facility] Primary Care Physician: Mgiuel Pineda MD [Primary Care Provider] - Please follow up with your Primary Care Physician in: 1-2 weeks Test Results: Test results from this visit will be discussed in further detail at your follow- up appointment, if applicable. Please Follow Up With: Yefri Caceres MD When: 4-6 weeks
--- NOTE | 2019-06-20 11:07 | PCM.DC.SUM ---
Discharge Date and Diagnosis - Problem List Patient Problems: Active and Suspected Problems (Last Updated 06/18/19 @ 16:22 by Migdalia Fisher) Dysrhythmia, cardiac (Acute) Chest pain (Acute) Angina pectoris (Acute) Date of Admission: 06/17/19 Date of Discharge: 06/20/19 - Primary Discharge Diagnosis Active and Suspected Problems (Last Updated 06/18/19 @ 16:22 by Migdalia Fisher) Dysrhythmia, cardiac (Acute) Chest pain (Acute) Angina pectoris (Acute) - Secondary Discharge Diagnosis Chronic Problems (Last Updated 06/18/19 @ 16:22 by Migdalia Fisher) CAD (coronary artery disease) (Chronic) 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) History of appendectomy (Chronic) Presence of coronary angioplasty implant and graft (Chronic ~09/23/06) PTCA and stenting of the LAD and diagonal 09/23/2006 Abnormal echocardiogram (Chronic) Mixed hyperlipidemia (Chronic) Atherosclerotic heart disease of [place] coronary artery without angina pectoris (Chronic) PTCA and stenting of the LAD and diagonal 09/23/2006 Essential hypertension (Chronic) Mixed sleep apnea (Chronic) BiPAP 17/11 mm of water with a backup rate of 12 Hypersomnolence disorder (Chronic) Dilated cardiomyopathy (Chronic) 15% EF Paroxysmal ventricular tachycardia (Chronic) Abnormal result of cardiovascular function study, unspecified (Chronic) 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) Implant: 06/2000; Generator change: 03/17/2008 Hypothyroidism, iatrogenic (Chronic) 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) Chronic renal failure, stage 3 (moderate) (Chronic) Diabetes mellitus type 2 in nonobese (Chronic) Sustained ventricular tachycardia (Chronic) Hypothyroidism (Chronic) Cardiomyopathy (Chronic) Hospital Course and Treatment Imaging Results: CXR: IMPRESSION: Stable mild cardiomegaly and cardiac pacemaker Stable mild pulmonary scarring within the lung bases 4 mm left upper lobe pulmonary nodular density suspicious for pulmonary nodule, CT chest follow-up recommended Cardiac Cath: PROCEDURE(S) PERFORMED [id number] CLINICAL PROFILE AND INDICATIONS Indications: Worsening Angina, Cardiomyopathy, Cardiac Arrythmia Heart Failure: NYHA Class: 3, Newly Diagnosed: No, Heart Failure Type: Systolic Stress/Imaging Stress/Image Study Performed: No Angina Classification Anginal Classification w/in 2 Weeks: CCS IV CAD Presentations: Unstable angina. CONCLUSIONS [place] Multivessel CAD RECOMMENDATIONS Risk factor modification Medical therapy Case discussed / reviewed with Basim Garnica MD (Interventional Cardiology) Consults: Cardiology Operations: None Procedures: Cardiac catheterization Summary of Care Provided: Per HPI: The patient is a 83 year old M with a significant history of former smoker; hypothyroidism; ischemic cardiomyopathy NYHA class 3 status post coronary stent and ICD; paroxysmal ventricular tachycardia; diabetes mellitus; and CKD stage IIIb who presents to the emergency department with episodic chest pain that started a day before presentation. His chest pain is substernal and it radiates to his left shoulder. When the chest pain started it was relieved with nitroglycerin. However he chest pain got to a point that it could no longer be relieved with nitroglycerin so patient came to the emergency department. He denies any associated nausea; vomiting or diaphoresis. However he had had shortness of breath. He report that his chest pain is exacerbated with taking a deep breath. At emergent department patient was found to have episodes of nonsustained V. tach. Emergent department doctor discussed the case with patient's known lathmaker, Dr. Caceres who recommended patient be given amiodarone bolus and drip. Hospital Course: 1. Unstable angina/cardiac dysrhythmia/paroxysmal VT/CAD status post PCI/chronic diastolic CHF/pacemaker/HLD/[id number]-old male who presented to the hospital with paroxysmal VT and chest pain. He was started on an amiodarone drip and continued on his p.o. amiodarone. He was taken to the cardiac Die Tripper which showed normal coronary arteries. His medications were intensified with an increase in his amiodarone to 400 mg p.o. twice daily for 2 weeks followed by 400 mg p.o. daily, and his Coreg was increased to 12.5 mg p.o. twice daily. He tolerated these medication adjustments and his chest pain has resolved. He will be discharged home with outpatient follow-up cardiology as well as his primary care physician. I did discuss discharge plans with him, specifically risks and benefits and he expressed understanding. Of note his TSH on admission was elevated indicating hypothyroidism likely secondary to his amiodarone. This needs to be followed up as an outpatient and have adjustments made to his Synthroid if necessary. 2. Incidental pulmonary nodule finding-he is a former smoker and his nodules less than 4 mm therefore follow-up CT scan is optional based on 2017 Fleischner criteria, however this is something to discuss further with his primary care physician on the outpatient side. 3. His other medical diagnoses were evaluated and his home medications were continued where appropriate Patient Problems: Active and Suspected Problems (Last Updated 06/18/19 @ 16:22 by Migdalia Fisher) Dysrhythmia, cardiac (Acute) Chest pain (Acute) Angina pectoris (Acute) - Physical Exam Vitals/I&O's: Vital Signs Temp Pulse Resp BP Pulse Ox 98.6 F 64 14 113/67 96 06/20/19 08:58 06/20/19 08:58 06/20/19 08:58 06/20/19 08:58 06/20/19 08:58 Oxygen Flow Rate (L/min) 2 Oxygen Delivery Method Room Air Weight: 195 lb 8.8 oz Body Mass Index (BMI) 27.2 Intake and Output for Last 24 Hours 06/18/19 06/19/19 06/20/19 23:59 23:59 23:59 Intake Total 1080.78 / 1830.78 2731.55 / 2731.55 Output Total 2125 / 3475 3800 / 3800 250 / 250 Balance -1044.22 / -1644.22 -1068.45 / -1068.45 -250 / -250 General: Alert, Oriented x3, Cooperative, No apparent distress HEENT: Atraumatic, PERRLA, EOMI, Normocephalic Oral: Moist Mucosa Neck: Supple, No JVD Lungs: Clear to auscultation, Normal air movement, No rhonchi, No wheeze, No rales Cardiovascular: Regular rate, Regular Rhythm, Normal S1, Normal S2, No murmurs Abdomen: Soft, Non Tender, Non-Distended, No Hepato-splenomegaly Extremities: No edema, Capillary Refill Less than 3 Seconds Skin: No rashes, No breakdown Neurological: Neuro grossly intact, Sensory exam intact to light touch and pain Psych/Mental Status: Normal Affect, Appropriate Laboratory Results 06/19/19 11:33: Sodium 141, Potassium 3.6, Chloride 106, Carbon Dioxide 30.0, Anion Gap 5, BUN 33 H, Creatinine 2.08 H, Estim Creat Clear Calc 28.66, Est GFR (MDRD) Af Amer 39 L, Est GFR (MDRD) Non-Af 33 L, BUN/Creatinine Ratio 15.9, Glucose 140 H, Calcium 9.0 06/19/19 11:37: POC Glucose 173 H 06/19/19 16:55: POC Glucose 125 H 06/19/19 22:00: POC Glucose 114 H 06/20/19 05:26: WBC 7.3, RBC 4.02 L, Hgb 12.9 L, Hct 39.6 L, MCV 98.5 H, MCH 32.1 H, MCHC 32.6, RDW Std Deviation 50.0 H, RDW Coeff of [place] 13.7, Plt Count 155, MPV 9.4, Immature Gran % (Auto) 0.100, Neut % (Auto) 65.2, Lymph % (Auto) 19.9, [place] % (Auto) 10.5 H, Eos % (Auto) 3.8, Baso % (Auto) 0.5, Absolute Neuts (auto) 4.8, Absolute Lymphs (auto) 1.46, Nucleated RBC % 0 06/20/19 05:26: Sodium 143, Potassium 4.2, Chloride 108 H, Carbon Dioxide 29.0, Anion Gap 6, BUN 36 H, Creatinine 2.00 H, Estim Creat Clear Calc 29.81, Est GFR (MDRD) Af Amer 41 L, Est GFR (MDRD) Non-Af 34 L, BUN/Creatinine Ratio 18.0, Glucose 87, Calcium 9.5 06/20/19 06:54: POC Glucose 88 Current Medications Acetaminophen (Tylenol) 650 mg PO Q6H PRN PRN PRN Reason: Pain Score 1-10/Temp > 100.7 F Last Admin: 06/18/19 07:44 Dose: 650 mg Documented by: Albuterol Sulfate (Ventolin Aerosols) 2.5 mg INHALATION Q4H PRN PRN Reason: SOB &/OR WHEEZING Amiodarone HCl (Cordarone) 400 mg PO BID [facility] Last Admin: 06/20/19 09:00 Dose: 400 mg Documented by: Aspirin (Aspirin) 325 mg PO DAILY@1999 [facility] Last Admin: 06/19/19 22:07 Dose: 325 mg Documented by: Carvedilol (Coreg) 12.5 mg PO BID [facility] Last Admin: 06/20/19 09:00 Dose: 12.5 mg Documented by: Cholecalciferol (Vitamin D (25mcg)) 1,000 unit PO DAILY [facility] Last Admin: 06/20/19 09:01 Dose: 1,000 unit Documented by: Clopidogrel Bisulfate (Plavix) 75 mg PO DAILY [facility] Last Admin: 06/20/19 09:01 Dose: 75 mg Documented by: Colchicine (Colchicine) 0.6 mg PO DAILY [facility] Last Admin: 06/20/19 09:02 Dose: 0.6 mg Documented by: Dextrose (D50w Syringe) 0 gm IV X1 PRN; Protocol PRN Reason: Hypoglycemia Finasteride (Proscar) 5 mg PO DAILY [facility] Last Admin: 06/20/19 09:01 Dose: 5 mg Documented by: Furosemide (Lasix) 40 mg PO DAILY [facility] Last Admin: 06/20/19 09:01 Dose: 40 mg Documented by: Glucagon () 1 mg IM .X1 PRN PRN Reason: Hypoglycemia Heparin Sodium (Beef Lung) (Heparin 500 Unit/5 Ml (100/Ml)) 500 unit IV UD PRN PRN Reason: HEPARIN FLUSH Heparin Sodium (Porcine) (Heparin Na) 5,000 unit SC Q12 [facility] Last Admin: 06/20/19 09:05 Dose: 5,000 unit Documented by: Sodium Chloride () 250 mls @ 15 mls/hr IV .[id number] PRN PRN Reason: Saline Flush Sodium Chloride () 250 mls @ 15 mls/hr IV .[id number] PRN PRN Reason: Additional IVPB Infusion Sodium Chloride () 1,000 mls @ 0 mls/hr IV .Q0M [facility] Insulin Human Lispro (Humalog Lucipen (Bkc)) 0 unit SC ACHS [facility]; Protocol Last Admin: 06/20/19 07:01 Dose: Not Given Documented by: Labetalol HCl (Trandate) 5 mg IV X1 PRN PRN Reason: SBP > 160 prior to sheath pull Stop: 06/20/19 11:51 Levothyroxine Sodium (Synthroid) 50 mcg PO DAILY@0600 [facility] Last Admin: 06/20/19 05:16 Dose: 50 mcg Documented by: Potassium Chloride (K-Dur) 20 meq PO DAILYCM [facility] Last Admin: 06/20/19 09:05 Dose: 20 meq Documented by: Pravastatin Sodium (Pravachol) 20 mg PO DAILY [facility] Last Admin: 06/20/19 09:01 Dose: 20 mg Documented by: Prednisone () 5 mg PO DAILY [facility] Last Admin: 06/20/19 09:00 Dose: 5 mg Documented by: Sodium Chloride () 10 - 40 ml IV UD PRN PRN Reason: SALINE FLUSH Tamsulosin HCl (Flomax) 0.4 mg PO DAILY [facility] Last Admin: 06/20/19 09:01 Dose: 0.4 mg Documented by: Discharge Activity: Return to Normal Activity Call your doctor if you observe: Fever of 101 or Higher, Shortness of breath, Dizziness, Fainting spells, Swelling in the ankles, Chest pain, Increased palpitations (irregular heartbeat) Home Medications: Medications to take at Discharge Aspirin 325 mg PO DAILY@199905/22/16 Colchicine 0.6 mg PO DAILY 05/22/16 Finasteride [Proscar] 5 mg PO DAILY 05/22/16 Levothyroxine [Synthroid] 50 mcg PO DAILY 05/22/16 Tamsulosin HCl [Flomax] 0.4 mg PO DAILY 05/22/16 nitroglycerin 0.4 mg sublingual tablet 0.4 mg SUBLINGUAL Q5-15M PRN #25 tab 11/16/18 Prednisone 5 mg PO DAILY #0 02/10/19 Pravastatin Sodium 20 mg PO DAILY 03/25/19 albuterol sulfate 2.5 mg INHALATION Q4H PRN 04/13/19 clopidogrel 75 mg tablet 75 mg PO DAILY #90 tab 04/19/19 Furosemide 40 mg PO DAILY 05/29/19 Hydroxychloroquine [Plaquenil] 200 mg PO DAILY 05/29/19 Cholecalciferol (Vitamin D3) [Vitamin D3] 25 mcg PO DAILY 06/17/19 Amiodarone HCl [Cordarone] 400 mg PO BID #120 tab 06/20/19 Carvedilol [Coreg (Beta Karri)] 12.5 mg PO BID #60 tab 06/20/19 Following Prescrptions Were Given to Patient: Amiodarone HCl [Cordarone] 400 mg PO BID #120 tab Transmission Status: Pending to [facility] Carvedilol [Coreg (Beta Karri)] 12.5 mg PO BID #60 tab Transmission Status: Pending to [facility] Primary Care Physician: Miguel Pineda MD [Primary Care Provider] - Please follow up with your Primary Care Physician in: 1-2 weeks Please Follow Up With: Yefri Caceres MD When: 4-6 weeks Disposition: Home Minutes spent on discharge:: 35 Patient Condition:: Stable Medical Necessity - Tobacco Use Smoking Status: Former smoker Tobacco Use: Non-smoker Meaningful Use Info Meaningful Use Diagnoses (Choose all that apply): AMI - AMI/Post PCI/Angioplasty Aspirin given w/in 24hrs of arrival?: Yes ASA at discharge?: Yes Statins at discharge?: Yes Wade/ARB at discharge?: Yes Reason Wade/ARB not ordered:: Worsening renal disease Beta Karri at discharge?: Yes Done w/ Acute PA measure.: Yes Inpatient E&M: [id number] [facility]
[2019-06-20 11:25] LABS: Bedside Glucose 143 mg/dL (70-110)
--- NOTE | 2019-06-21 15:28 | CASEMGMT ---
DEAN ROWAN Discharge Follow-up Phone Call: ROGREMarbin: 14 Strata: 4 Call Date: 06/21/19 Discharge Date: 06/20/19 Time of Call: 1525 Duration: 5 min Admitting Diagnosis: Dysrhythmia DEAN ROWAN completed follow-up phone call after recent hospitalization. Daughter Rupal answered phone, patient not available. Daughter states that patient is doing well. Daughter states they had no questions regarding discharge instructions and they were able to fill prescriptions without any issues. Daughter states they left messages with PCP and fruit packer face and fill to schedule follow-up appts. Daughter had no further questions at this time.
== END 2019-06-20 13:51 | disposition home or self-care (01) | DRG 287 ==
LOC: ED 20:09 → PCU 21:36
PROVIDERS: Internal Medicine Cardiovascular Disease; Admitting Provider Hospitalist; Emergency Provider Emergency Medicine; PCP Family Medicine; Visit Provider Family Medicine
DX: I25.110 Atherosclerotic heart disease of native coronary artery with unstable angina pectoris (principal); I47.2 Ventricular tachycardia; I13.0 Hypertensive heart and chronic kidney disease with heart failure and stage 1 through stage 4 chronic kidney disease, or unspecified chronic kidney disease; I50.42 Chronic combined systolic (congestive) and diastolic (congestive) heart failure; I49.9 Cardiac arrhythmia, unspecified; I42.0 Dilated cardiomyopathy; R91.1 Solitary pulmonary nodule; N40.0 Benign prostatic hyperplasia without lower urinary tract symptoms; E11.22 Type 2 diabetes mellitus with diabetic chronic kidney disease; N18.3 Chronic kidney disease, stage 3 (moderate); E78.2 Mixed hyperlipidemia; Z95.810 Presence of automatic (implantable) cardiac defibrillator; E03.9 Hypothyroidism, unspecified; G47.33 Obstructive sleep apnea (adult) (pediatric); G47.31 Primary central sleep apnea; E11.65 Type 2 diabetes mellitus with hyperglycemia; J44.9 Chronic obstructive pulmonary disease, unspecified; M19.90 Unspecified osteoarthritis, unspecified site; I49.3 Ventricular premature depolarization; E11.51 Type 2 diabetes mellitus with diabetic peripheral angiopathy without gangrene; Z79.82 Long term (current) use of aspirin; Z79.899 Other long term (current) drug therapy; Z79.02 Long term (current) use of antithrombotics/antiplatelets; Z87.891 Personal history of nicotine dependence
CPT/HCPCS: 36415; 71045; 80048; 82962; 83036; 83735; 84443; 84484; 85025; 85610; 85730; 93005; 93454; 96365; 99152; 99153; 99285; J7030; Q9967; A4216; C1769; C1894

== ENCOUNTER 2019-06-25 08:56 | Emergency (ER) | payer MEDICARE, OTHER, SELFPAY ==
[2019-06-17 20:55] VITALS: BMI 27.2
[2019-06-25 08:57] VITALS: BP 128/74; PULSE 62; RESP 15; TEMP 36.8; O2SAT 96; BMI 27.7
--- NOTE | 2019-06-25 09:06 | EKG12_ITS ---
Test Reason : C Blood Pressure : / mmHG Vent. Rate : 062 BPM Atrial Rate : 062 BPM P-R Int : 232 ms QRS Dur : 130 ms QT Int : 506 ms P-R-T Axes : 033 -29 070 degrees QTc Int : 513 ms Sinus rhythm with 1st degree A-V block with occasional Premature ventricular complexes Left ventricular hypertrophy with QRS Nonspecific ST and T wave abnormality Abnormal ECG Confirmed by BEATRIZ GALLARDO, TRISTAN ([id number]), newspaper or periodical editor VIRGILIO EVANS ([id number]) on 06/28/2019 2:29:17 PM Referred By: AKILAH Confirmed By:TRISTAN HENDERSON MD
[2019-06-25 09:16] LABS: Absolute Lymphocyte Count 1.62 X10^3/uL (0.83-4.51); Absolute Neutrophil Count 3.5 X10^3/uL (2.0-7.7); Basophil# 0.05 X10^3/uL; Basophil% 0.8 % (0-1); Eosinophil# 0.27 X10^3/uL; Eosinophils% 4.4 % (0-5); Hematocrit 38.2 % (40-54); Hemoglobin 12.5 g/dL (13.0-16.5); Lymphocyte # 1.62 X10^3/ul (4.0); Lymphocyte % 26.5 % (19-41); Mean Corp Hgb Conc 32.7 g/dL (32-36); Mean Corpuscular Hgb 32.3 pg (27.0-32.0); Mean Corpuscular Volume 98.7 fL (80-94); Mean Platelet Vol. 9.7 fl (6.2-12.0); Monocyte% 11.4 % (0-10); NRBC Flagged by Analyzer 0 % (0-5); Neutrophil # 3.46 X10^3/uL (2.7-7.7); Neutrophil % 56.6 % (47-70); Platelet Count 145 K/mm3 (150-450); RBC Distribution Width CV 13.6 % (11.6-14.6); Red Blood Count 3.87 M/mm3 (4.6-6.2); White Blood Count 6.1 K/mm3 (4.4-11.0)
--- NOTE | 2019-06-25 09:21 | ED.DCSUM_ITS ---
History of Present Illness Informant: Patient Onset: Yesterday Activity at onset: Rest Timing: Intermittent Quality: Tightness Location: Substernal Current Severity: Mild Maximum Severity: Moderate Worsened By: Nothing Relieved By: Rest Associated Symptoms: Lightheadedness, Palpitations. Negative for: Nausea, Vomiting, Diaphoresis, Dyspnea, Cough, Fever, Acid Reflux Narrative: 83-year-old male with a past medical history of coronary artery disease and CHF presents to the emergency department with chest pain lightheadedness and palpitations. Patient was admitted here last week for similar symptoms however at that time was having runs of ventricular tachycardia was admitted to the hospital had a cardiac catheterization had his Coreg and amiodarone increased and was sent home about 4 days ago. Since he has been at home he is overall felt well but he has had multiple episodes of lightheadedness and palpitations. No syncope or near syncope. He woke up at 3 AM today with some tightness in his chest took a nitroglycerin and went back to sleep and has not had chest pain since that time. He denies cough fever vomiting or diarrhea back pain abdominal pain. He is been able to eat and drink normally. He has been able to have light activity at home. He has been compliant with his medications. He denies any other review of systems. Prior Similar Symptoms: Yes Recent Illness/Hospitalization: Yes CVD Risk Factors: Hypertension, Diabetes, Hypercholesterolemia. Negative for: Family History 1' </=55, Smoking PE Risk Factors: Negative for: Recent Travel/Surgery, Recenet Immobilization, Prior DVT or PE, Cancer, OCP + Smoking + >/=35 TAD Risk Factors: Hypertension. Negative for: Marfan's Syndrome, Family History <Farrukh Sanz - Last Filed: 06/25/19 10:29> <Moises Fowler - Last Filed: 06/25/19 15:11> Chief Complaint: Chest Pain Past Medical History Prior records reviewed: Yes Past Medical History: - - Hypertension, hyperlipidemia, CHF, CAD Surgical History: angioplasty, appendectomy, pacemaker implantation, - - AICD, appendectomy, PCI. Lives: With Family Smoking Status: Former smoker Alcohol: None Drugs: None - Family History Paternal Family History: Family History (Last Reviewed 06/18/19 @ 03:[address] Adam Shaw MD) Mother Alzheimers disease Brother Cancer Brother Hypertension Brother CAD (coronary artery disease) Sister CAD (coronary artery disease) Sister Breast cancer Family History: Reports: Pulmonary Disease - emphysema, s/p lobectomy Maternal Family History: Family History (Last Reviewed 06/18/19 @ 03:[address] Adam Shaw MD) Mother Alzheimers disease Brother Cancer Brother Hypertension Brother CAD (coronary artery disease) Sister CAD (coronary artery disease) Sister Breast cancer Family History: Reports: Dementia, Heart Disease Sibling Family History: Family History (Last Reviewed 06/18/19 @ 03:[address] Adam Shaw MD) Mother Alzheimers disease Brother Cancer Brother Hypertension Brother CAD (coronary artery disease) Sister CAD (coronary artery disease) Sister Breast cancer Family History: Reports: Heart Disease Offspring Family History: Family History (Last Reviewed 06/18/19 @ 03:[address] Adam Shaw MD) Mother Alzheimers disease Brother Cancer Brother Hypertension Brother CAD (coronary artery disease) Sister CAD (coronary artery disease) Sister Breast cancer Family History: Reports: No pertinent history <Farrukh Sanz - Last Filed: 06/25/19 10:29> - Family History Paternal Family History: Family History (Last Reviewed 06/18/19 @ 03:[address] Adam Shaw MD) Mother Alzheimers disease Brother Cancer Brother Hypertension Brother CAD (coronary artery disease) Sister CAD (coronary artery disease) Sister Breast cancer Maternal Family History: Family History (Last Reviewed 06/18/19 @ 03:[address] Adam Shaw MD) Mother Alzheimers disease Brother Cancer Brother Hypertension Brother CAD (coronary artery disease) Sister CAD (coronary artery disease) Sister Breast cancer Sibling Family History: Family History (Last Reviewed 06/18/19 @ 03:[address] Adam Shaw MD) Mother Alzheimers disease Brother Cancer Brother Hypertension Brother CAD (coronary artery disease) Sister CAD (coronary artery disease) Sister Breast cancer Offspring Family History: Family History (Last Reviewed 06/18/19 @ 03:[address] Adam Shaw MD) Mother Alzheimers disease Brother Cancer Brother Hypertension Brother CAD (coronary artery disease) Sister CAD (coronary artery disease) Sister Breast cancer <Moises Fowler - Last Filed: 06/25/19 15:11> - Allergies and Home Meds Allergies/Adverse Reactions: Allergies atorvastatin [From Lipitor] Adverse Reaction (Verified 06/17/19 19:13) myalgia leflunomide [From Arava] Adverse Reaction (Verified 06/17/19 19:13) PROBLEMS WITH MY FEET simvastatin [From Zocor] Adverse Reaction (Verified 06/17/19 19:13) myalgia Primary Care Physician: Miguel Pineda MD [Primary Care Provider] - Yefri Caceres MD [STAFF PHYSICIAN] - Review of Systems All systems negative except as indicated General: Denies: Chills, Fever, Malaise Eyes: Denies: Visual changes - bilaterally, Blurred Vision - bilaterally, Diplopia ENT: Denies: Rhinorrhea, Sore throat Cardiovascular: Reports: Chest pain, Palpitations Respiratory: Denies: Dyspnea, Cough, Sputum, Dyspnea on exertion, Orthopnea, Paroxysmal nocturnal dyspnea Gastrointestinal: Denies: Abdominal pain, Nausea, Vomiting, Diarrhea Genitourinary: Denies: Dysuria, Hematuria, Frequency Musculoskeletal: Denies: Myalgias, Arthralgias Skin: Denies: Rash, Abscess, Abrasions, Wounds Neurological: Denies: Headache, Weakness, Parasthesia, Numbness Psych: Denies: Depression, Anxiety <Farrukh Sanz - Last Filed: 06/25/19 10:29> Physical Exam Vital Signs/Narrative: Vital Signs Temp Pulse Resp BP Pulse Ox 06/25/19 08:57 98.2 F 62 15 128/74 H 96 Inital Vital Signs reviewed: Yes General: Well nourished, Well developed, No Acute Distress Head: Normocephalic, Atraumatic Eyes: Perrl, EOMI ENT: Moist mucous membranes Neck: Supple, Nontender, No lymphadenopathy, No JVD Cardiovascular: Regular rate, Regular rhythm Respiratory: No distress, CTA bilaterally, Chest nontender Abdomen: Soft, Nontender, Nondistended, Normal bowel sounds, No masses Back: Nontender, Normal Inspection Extremities: Nontender, No edema Skin: Normal color, No rash Neurological: Alert, Oriented x3 Psychological: Normal affect, Normal Mood <Farrukh Sanz - Last Filed: 06/25/19 10:29> Diagnostic/Tx/Re-eval Chest X-Ray - ED: 1 View, Read by ED Physician, Read by Radiologist, No Acute Disease - Rhythm Strip Rhythm Strip: Sinus Rhythm Rate: 60 Ectopy: None - EKG Initial EKG Interpretation: Sinus Rhythm, No Acute Injury Pattern Prior: Unchanged Repeat Eval: Pain Free - Medical Decision Making Patient is EKG on arrival was sinus rhythm without any signs of acute ischemia and it is unchanged from his previous EKG. He was having some PVCs on the monitor but no evidence of ventricular tachycardia or other dysrhythmias. He is chest pain-free on arrival and has not had chest pain since he took his dose of nitroglycerin at 3 AM today. His laboratory work-up including a CBC BMP and troponin was remarkable for a creatinine of 2.43 which is slightly up in the patient's baseline of around 2. His troponin was negative. His chest x-ray showed no acute abnormalities. Patient remained chest pain-free and without dysrhythmia on the monitor. I spoke with his pipe smoker machine operator Dr. Caceres who recommended that we start the patient on 30 mg of Imdur daily in addition to his current medication regimen and he will follow-up with him next week as an outpatient. Patient was agreeable with this plan. He was given return precautions and he will be discharged home. Critical care time (excluding procedures): Discussing w/Consultants <Farrukh Sanz - Last Filed: 06/25/19 10:29> - Medical Decision Making Patient was seen with me. I did a [id number] examination with the patient. Patient presents with palpitations that began earlier this morning. Patient was admitted to the hospital recently and had medications changed due to episodes of ventricular tachycardia. Patient is concerned that this may recur. Currently the patient denies any chest pain. Patient denies any shortness of breath. Patient denies any nausea or vomiting. Vital signs are stable. Patient is afebrile. Patient is in no acute distress. Oral mucosa is pink and moist. Neck is supple. Trachea is midline. There is no JVD. Heart was regular rate and rhythm. Lungs are clear and equal bilaterally. Abdomen is soft and nontender. Cranial nerves II through XII are intact. There are no focal motor or sensory deficits noted. EKG showed normal sinus rhythm with occasional PVCs. There are no acute ST or T wave changes. CBC, basic metabolic profile, and troponin were essentially within normal limits with the exception of a slightly elevated creatinine of 2.43 which is slightly increased from his baseline. Chest x-ray does not show any acute cardiopulmonary process. Patient remained pain-free here in the emergency department. Case was discussed with his pipe smoker machine operator, Dr. Caceres who recommended placing the patient on Imdur 30 mg daily. Patient was given a prescription for this. Patient was instructed to follow-up with Dr. Caceres as well as his primary care physician in 5 to 7 days. Patient understood and was agreeable with the plan. All questions were answered. <Moises Fowler - Last Filed: 06/25/19 15:11> ED Disposition <Farrukh Sanz - Last Filed: 06/25/19 10:29> <Moises Fowler - Last Filed: 06/25/19 15:11> - Plan for ED Patient: Disposition: Home or Assisted Living Diagnosis: Chest pain, CAD (coronary artery disease), Chronic renal failure, stage 3 (moderate), Diabetes mellitus type 2 in nonobese, Dilated cardiomyopathy, History of implantable cardioverter-defibrillator (ICD) placement, PVC (premature ventricular contraction) Instructions: ED Chest Pain Atypical Unkn Cause Prescriptions: Isosorbide Mononitrate [Imdur] 30 mg PO DAILY #30 tab Prescription Printed Referrals: Miguel Pineda MD [Primary Care Provider] - Yefri Caceres MD [STAFF PHYSICIAN] -
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
[2019-06-25 09:30] LABS: Anion Gap 7 (5-15); BUN 42 mg/dL (7-18); BUN/Creat Ratio 17.3 RATIO (10-20); Calcium,Total 9.2 mg/dL (8.5-10.1); Chloride 106 mmol/L (98-107); Creatinine, Serum 2.43 mg/dL (0.70-1.30); EST Glomerular Filtration Rate 27 mL/min (>60); Est Glom Filt Rate - Afr Amer 33 mL/min (>60); Estimated Creatinine Clearance 24.53 ml/min; Glucose 96 mg/dL (74-106); Potassium 3.8 mmol/L (3.5-5.1); Sodium Level 142 mmol/L (136-145)
[2019-06-25 09:58] VITALS: BP 122/80; PULSE 61; RESP 17; O2SAT 97
[2019-06-25 10:48] VITALS: BP 124/62; PULSE 79; RESP 20; O2SAT 98
--- NOTE | 2019-06-25 10:48 | ED.RN ---
THIS NURSE REVIEWED D/C INSTRUCTIONS WITH PT. PT VERBALIZED UNDERSTANDING OF INSTRUCTIONS. IV D/C. IV CATHETER INTACT. PT TOLERATED WELL. PT DENIES FURTHER NEEDS OR QUESTIONS AT THIS TIME.
== END 2019-06-25 10:50 | disposition home or self-care (01) ==
PROVIDERS: Emergency Provider Physician Assistant Medical; PCP Family Medicine
DX: R07.89 Other chest pain (principal); R42 Dizziness and giddiness; R00.2 Palpitations; I49.3 Ventricular premature depolarization; E11.22 Type 2 diabetes mellitus with diabetic chronic kidney disease; I13.0 Hypertensive heart and chronic kidney disease with heart failure and stage 1 through stage 4 chronic kidney disease, or unspecified chronic kidney disease; N18.3 Chronic kidney disease, stage 3 (moderate); I50.9 Heart failure, unspecified; I42.0 Dilated cardiomyopathy; I25.10 Atherosclerotic heart disease of native coronary artery without angina pectoris; E78.5 Hyperlipidemia, unspecified; Z87.891 Personal history of nicotine dependence; Z95.810 Presence of automatic (implantable) cardiac defibrillator
CPT/HCPCS: 71045; 80048; 84484; 85025; 93005; 99285; A4216

== ENCOUNTER → 2019-08-02 09:39 | Outpatient (CLI) | payer MEDICARE, OTHER, SELFPAY ==
[2019-08-02 09:39] VITALS: BMI 37.2
[2019-08-02 10:50] LABS: Thyroid Stim Hormone (TSH) 5.38 uIU/mL (0.358-3.74)
== END ==
PROVIDERS: PCP Family Medicine; Referring Provider Physician Assistant Medical; Visit Provider Physician Assistant Medical
DX: I49.9 Cardiac arrhythmia, unspecified (principal)
CPT/HCPCS: 36415; 84443

== ENCOUNTER → 2019-08-06 10:20 | Outpatient (CLI) | payer MEDICARE, OTHER, SELFPAY ==
[2019-08-02 09:39] VITALS: BMI 37.2
[2019-08-06 10:26] LABS: Bacteria 0 SEEN /hpf (None Seen); Mucous, Urine 0 SEEN /hpf (<or=2+); Red Blood Cells-Urine 0 SEEN /hpf (0-5); Squamous Epithelial Cells - UA 0 SEEN /hpf (0-5); White Blood Cells 0 SEEN /hpf (0-5)
[2019-08-06 10:51] LABS: Color, Urine Yellow (Yellow); Glucose, Dipstick Normal (Normal); Ketone-Dipstick Negative (Negative); Leukocyte Esterase-Dipstick Negative /ul (Negative); Nitrite-Dipstick Negative (Negative); Occult Blood-Urine Negative /ul (Negative); Protein-Dipstick Negative (Negative); Specific Gravity, Urine 1.005 (1.002-1.030); Urine Bilirubin Dipstick Negative (Negative); Urine Clarity Clear (Clear); Urine Urobilinogen Normal (Normal)
[2019-08-06 10:52] LABS: Protein, Urine (Random) 8.9 mg/dL (<11.9); Protein:Creat Ratio 188 mg/g CRE (0-200)
[2019-08-06 11:07] LABS: Anion Gap 5 (5-15); BUN 27 mg/dL (7-18); BUN/Creat Ratio 12.1 RATIO (10-20); Calcium,Total 9.2 mg/dL (8.5-10.1); Chloride 105 mmol/L (98-107); Creatinine, Serum 2.23 mg/dL (0.70-1.30); EST Glomerular Filtration Rate 30 mL/min (>60); Est Glom Filt Rate - Afr Amer 36 mL/min (>60); Glucose 106 mg/dL (74-106); Sodium Level 142 mmol/L (136-145)
[2019-08-06 11:08] LABS: PTHIN 161.5 pg/mL (18.4-80.1)
[2019-08-06 11:12] LABS: Vitamin D,25 Hydroxy 22.6 ng/mL
== END ==
PROVIDERS: PCP Family Medicine; Referring Provider Internal Medicine; Visit Provider Internal Medicine
DX: N18.3 Chronic kidney disease, stage 3 (moderate) (principal); N25.81 Secondary hyperparathyroidism of renal origin; E55.9 Vitamin D deficiency, unspecified
CPT/HCPCS: 36415; 80048; 81001; 82306; 82570; 83970; 84100; 84156

== ENCOUNTER 2019-08-29 21:37 | Emergency (ER) | payer MEDICARE, OTHER, SELFPAY ==
[2019-08-02 09:39] VITALS: BMI 37.2
[2019-08-29 21:38] VITALS: BP 139/71; PULSE 74; RESP 18; TEMP 36.1; O2SAT 94; BMI 25.7
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
--- NOTE | 2019-08-29 21:54 | EKG12_ITS ---
Test Reason : DYSRHYTHMIA Blood Pressure : / mmHG Vent. Rate : 065 BPM Atrial Rate : 065 BPM P-R Int : 236 ms QRS Dur : 132 ms QT Int : 460 ms P-R-T Axes : 037 -30 104 degrees QTc Int : 478 ms Sinus rhythm with 1st degree A-V block Left axis deviation Left ventricular hypertrophy with QRS widening and repolarization abnormality Abnormal ECG Confirmed by LEIDY GALLARDO, OLY ([id number]), order editor SHE BURLESON ([id number]) on 08/31/2019 11:04:53 AM Referred By: CL Confirmed By:OLY FORBES MD
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
[2019-08-29 22:33] LABS: Absolute Lymphocyte Count 1.05 X10^3/uL (0.83-4.51); Absolute Neutrophil Count 5.2 X10^3/uL (2.0-7.7); Basophil# 0.02 X10^3/uL; Basophil% 0.3 % (0-1); Eosinophil# 0.09 X10^3/uL; Eosinophils% 1.3 % (0-5); Hematocrit 37.2 % (40-54); Lymphocyte # 1.05 X10^3/ul (4.0); Lymphocyte % 14.7 % (19-41); Mean Corp Hgb Conc 32.3 g/dL (32-36); Mean Corpuscular Hgb 32.5 pg (27.0-32.0); Mean Corpuscular Volume 100.8 fL (80-94); Mean Platelet Vol. 9.5 fl (6.2-12.0); Monocyte% 9.8 % (0-10); NRBC Flagged by Analyzer 0 % (0-5); Neutrophil # 5.24 X10^3/uL (2.7-7.7); Neutrophil % 73.2 % (47-70); Platelet Count 154 K/mm3 (150-450); RBC Distribution Width CV 14.5 % (11.6-14.6); RBC Distribution Width SD 53.6 fl (35.1-43.9); Red Blood Count 3.69 M/mm3 (4.6-6.2); White Blood Count 7.2 K/mm3 (4.4-11.0)
[2019-08-29 22:47] LABS: Anion Gap 5 (5-15); BUN 32 mg/dL (7-18); BUN/Creat Ratio 12.6 RATIO (10-20); Calcium,Total 8.8 mg/dL (8.5-10.1); Chloride 105 mmol/L (98-107); Creatinine, Serum 2.53 mg/dL (0.70-1.30); EST Glomerular Filtration Rate 26 mL/min (>60); Est Glom Filt Rate - Afr Amer 31 mL/min (>60); Estimated Creatinine Clearance 23.15 ml/min; Glucose 92 mg/dL (74-106); Sodium Level 139 mmol/L (136-145)
[2019-08-29 23:39] VITALS: BP 134/67; PULSE 61; RESP 16; O2SAT 99
[2019-08-29] MEDS: Acetaminophen 500 MG Tablet 1000 MG PO (23:52)
[2019-08-30 00:12] VITALS: BP 134/67; PULSE 61; RESP 16; O2SAT 99
== END 2019-08-30 00:15 | disposition home or self-care (01) ==
PROVIDERS: Emergency Provider Emergency Medicine; PCP Family Medicine
DX: S20.219A Contusion of unspecified front wall of thorax, initial encounter (principal); V86.55XA Driver of 3- or 4- wheeled all-terrain vehicle (ATV) injured in nontraffic accident, initial encounter; Y93.9 Activity, unspecified; Y92.9 Unspecified place or not applicable; Y99.9 Unspecified external cause status; I71.4 Abdominal aortic aneurysm, without rupture; I25.10 Atherosclerotic heart disease of native coronary artery without angina pectoris; E11.9 Type 2 diabetes mellitus without complications; I10 Essential (primary) hypertension; E78.5 Hyperlipidemia, unspecified; Z79.02 Long term (current) use of antithrombotics/antiplatelets; Z79.82 Long term (current) use of aspirin; Z79.899 Other long term (current) drug therapy; Z87.891 Personal history of nicotine dependence; Z95.810 Presence of automatic (implantable) cardiac defibrillator
CPT/HCPCS: 71250; 74176; 80048; 84484; 85025; 93005; 99284; A4216

== ENCOUNTER → 2019-09-15 08:51 | Outpatient (CLI) | payer MEDICARE, OTHER, SELFPAY ==
[2019-06-15 08:00] VITALS: BMI 28.3
[2019-08-29 21:38] VITALS: BMI 25.7
[2019-09-15 10:52] VITALS: PULSE 55; PULSE 60; PULSE 69; PULSE 71; PULSE 73; PULSE 75; O2SAT 90; O2SAT 91; O2SAT 93; O2SAT 94; O2SAT 95; O2SAT 96
--- NOTE | 2019-09-15 13:36 | PCM.PSN.6M ---
PSN 6 Minute Walk Test - 6 Minute Walk Test 6 Minute Walk Test: 6 Minute Walk Test PSN:6-Minute Walk Test Start: 09/15/19 10:51 Freq: Status: Active Protocol: [id number] Document 09/15/19 10:52 FR (Rec: 09/15/19 11:05 FR [id number]) 6 Minute Walk Test Date Performed 09/15/19 Time Performed 10:30 Height 6 ft 1 in Weight: 83.915 kg Weight in Pounds 185.[address]: Rupal Castillo Assistive device used: None Pre-test Oxygen Delivery Method Room Air Pulse Ox (%) 94 Pulse Rate (60-100 beats/min) 55 L Dyspnea Alejandra Scale (0-10) 6 Exertion Alejandra Scale (6-20) 9 1st minute Oxygen Delivery Method Room Air Pulse Ox (%) 95 Pulse Rate (60-100 beats/min) 69 2nd minute Oxygen Delivery Method Room Air Pulse Ox (%) 91 Pulse Rate (60-100 beats/min) 69 3rd minute Oxygen Delivery Method Room Air Pulse Ox (%) 91 Pulse Rate (60-100 beats/min) 69 4th minute Oxygen Delivery Method Room Air Pulse Ox (%) 93 Pulse Rate (60-100 beats/min) 71 5th minute Oxygen Delivery Method Room Air Pulse Ox (%) 90 Pulse Rate (60-100 beats/min) 73 Reported Symptoms Increased Work of Breathing 6th minute Oxygen Delivery Method Room Air Pulse Ox (%) 90 Pulse Rate (60-100 beats/min) 75 Dyspnea Alejandra Scale (0-10) 6 Exertion Alejandra Scale (6-20) 10 Post-test Oxygen Delivery Method Room Air Pulse Ox (%) 96 Pulse Rate (60-100 beats/min) 60 Full Laps Walked 14 Partial Lap, Number of Tiles Walked 24 Total Distance Walked (ft) 850 - Interpretation Interpretation: The patient was able to ambulate 850 feet over the course of 6 minutes on room air with no assistive devices or breaks. The patient did experience significant desaturation as low as 90% with ambulation. Peak heart rate was 75 bpm. These findings are consistent with a respiratory limitation exercise tolerance. - Recommendations Recommendations: No supplemental oxygen is indicated at this time. However, patient will need to be followed closely given level of desaturation.
== END ==
PROVIDERS: PCP Family Medicine; Referring Provider Nurse Practitioner Acute Care; Visit Provider Nurse Practitioner Acute Care
DX: R06.02 Shortness of breath (principal)
CPT/HCPCS: 94618

== ENCOUNTER → 2019-09-27 15:06 | Outpatient (CLI) | payer MEDICARE, OTHER, SELFPAY ==
[2019-09-23 05:46] VITALS: BMI 25.7
[2019-09-27 17:53] LABS: Absolute Neutrophil Count 3.4 X10^3/uL (2.0-7.7); Basophil# 0.03 X10^3/uL; Basophil% 0.6 % (0-1); Eosinophil# 0.21 X10^3/uL; Eosinophils% 3.9 % (0-5); Hematocrit 37.9 % (40-54); Lymphocyte % 22.4 % (19-41); Mean Corp Hgb Conc 31.7 g/dL (32-36); Mean Corpuscular Hgb 32.1 pg (27.0-32.0); Mean Corpuscular Volume 101.3 fL (80-94); Mean Platelet Vol. 9.6 fl (6.2-12.0); Monocyte# 0.53 X10^3/uL; Monocyte% 9.9 % (0-10); NRBC Flagged by Analyzer 0 % (0-5); Neutrophil # 3.36 X10^3/uL (2.7-7.7); Neutrophil % 62.8 % (47-70); Platelet Count 144 K/mm3 (150-450); RBC Distribution Width CV 14.7 % (11.6-14.6); RBC Distribution Width SD 54.9 fl (35.1-43.9); Red Blood Count 3.74 M/mm3 (4.6-6.2); White Blood Count 5.4 K/mm3 (4.4-11.0)
[2019-09-27 17:57] LABS: Free T3 2.3 pg/mL (2.18-3.98); T4 Free Direct 1.46 ng/dL (0.76-1.46)
[2019-09-27 17:59] LABS: ALB/GLOB Ratio 0.9 RATIO (0.9-2.4); AST(SGOT) 38 U/L (15-37); Alanine Aminotransfer ALT/SGPT 32 U/L (16-61); Albumin, Serum 3.5 g/dL (3.2-5.0); Alkaline Phosphatase 116 U/L (45-117); Anion Gap 6 (5-15); BUN 30 mg/dL (7-18); Calcium,Total 9.2 mg/dL (8.5-10.1); Chloride 104 mmol/L (98-107); EST Glomerular Filtration Rate 26 mL/min (>60); Est Glom Filt Rate - Afr Amer 32 mL/min (>60); Globulin 3.7 g/dL (2.2-4.2); Glucose 99 mg/dL (74-106); Protein, Total 7.2 g/dL (6.4-8.2); Sodium Level 140 mmol/L (136-145); Uric Acid 7.9 mg/dL (3.5-7.2)
== END ==
PROVIDERS: Physician Assistant Medical; PCP Family Medicine; Referring Provider Internal Medicine Rheumatology; Visit Provider Internal Medicine Rheumatology
DX: M06.4 Inflammatory polyarthropathy (principal); M17.0 Bilateral primary osteoarthritis of knee; M21.40 Flat foot [pes planus] (acquired), unspecified foot; E11.22 Type 2 diabetes mellitus with diabetic chronic kidney disease; N18.9 Chronic kidney disease, unspecified; E03.9 Hypothyroidism, unspecified; Z79.899 Other long term (current) drug therapy
CPT/HCPCS: 36415; 80053; 84439; 84443; 84481; 84550; 85025

== ENCOUNTER 2019-11-02 08:12 | Inpatient (IN) | payer MEDICARE, OTHER, SELFPAY ==
[2019-09-23 05:46] VITALS: BMI 25.7
[2019-11-02] VITALS (11 sets, daily range): BP systolic 89–140; BP diastolic 51–72; PULSE 56–66; RESP 14–18; TEMP 36.3–37.1; O2SAT 96–100; BMI 26.0; BMI 25.4
--- NOTE | 2019-11-02 08:24 | EKG12_ITS ---
Test Reason : CP Blood Pressure : / mmHG Vent. Rate : 064 BPM Atrial Rate : 064 BPM P-R Int : 232 ms QRS Dur : 134 ms QT Int : 420 ms P-R-T Axes : 048 -34 122 degrees QTc Int : 433 ms Sinus rhythm with 1st degree A-V block with occasional Premature ventricular complexes Left axis deviation Non-specific intra-ventricular conduction block T wave abnormality, consider lateral ischemia Abnormal ECG Confirmed by LEIDY GALLARDO, OLY ([id number]), proposal editor ASCENCION MOORE ([id number]) on 11/04/2019 9:35:10 AM Referred By: BAILEY Confirmed By:OLY FORBES MD
[2019-11-02] MEDS: Aspirin 81 MG TAB.CHEW 324 MG PO (08:49)
[2019-11-02 08:54] LABS: Absolute Lymphocyte Count 1.22 X10^3/uL (0.83-4.51); Absolute Neutrophil Count 3.7 X10^3/uL (2.0-7.7); Basophil# 0.03 X10^3/uL; Basophil% 0.5 % (0-1); Eosinophil# 0.13 X10^3/uL; Eosinophils% 2.3 % (0-5); Hematocrit 39.2 % (40-54); Hemoglobin 12.6 g/dL (13.0-16.5); Lymphocyte # 1.22 X10^3/ul (4.0); Lymphocyte % 21.2 % (19-41); Mean Corp Hgb Conc 32.1 g/dL (32-36); Mean Corpuscular Hgb 31.6 pg (27.0-32.0); Mean Corpuscular Volume 98.2 fL (80-94); Mean Platelet Vol. 9.3 fl (6.2-12.0); Monocyte# 0.67 X10^3/uL; Monocyte% 11.6 % (0-10); NRBC Flagged by Analyzer 0 % (0-5); Neutrophil # 3.68 X10^3/uL (2.7-7.7); Neutrophil % 63.9 % (47-70); Platelet Count 153 K/mm3 (150-450); RBC Distribution Width CV 14.2 % (11.6-14.6); RBC Distribution Width SD 51.8 fl (35.1-43.9); Red Blood Count 3.99 M/mm3 (4.6-6.2); White Blood Count 5.8 K/mm3 (4.4-11.0)
--- NOTE | 2019-11-02 09:08 | RAD_ITS ---
STUDY: X-RAY CHEST REASON FOR EXAM: Male, 84 years old. CHEST PAIN, AND DIZZINESS FOR 1 WEEK. PAIN HOWEVER INCREASED YESTERDAY. TECHNIQUE: Single AP portable view of the chest. COMPARISON: Comparison is made with prior study dated 06/25/2019. FINDINGS: EKG electrodes are seen. Minimal degree of residual increased linear markings at the lung bases suggestive of mild scarring. There is no demonstrated pleural abnormality. There is mild cardiac enlargement. A left-sided ICD is seen. Normal mediastinum and bro[place]. Normal visualized pulmonary arteries. There is atherosclerotic calcification of the aortic arch with tortuosity. Normal visualized thoracic spine. Normal visualized ribs, clavicles, and shoulders. There is no demonstrated abnormality of the visualized soft tissue structures of the upper abdomen. RAD/Chest 1 View (Portable) IMPRESSION: Cardiomegaly. Stable mild linear scarring at the lung bases. Electronically Signed: Pablito Lloyd, at 9:33 EDT , Service support ,
--- NOTE | 2019-11-02 09:13 | ED.DCSUM_ITS ---
History of Present Illness Chief Complaint: Chest Pain Detail of Chief Complaint: Exertional chest pain x1 week Informant: Patient, Family Onset: Weeks Context: Onset with activity Timing: Intermittent Quality: Tightness Location: Midsternum Current Severity: - - Pain-free Maximum Severity: Moderate Worsened by: Exertion Relieved by: Rest Associated Symptoms: Shortness of breath, nausea Narrative: Patient is an elderly male with multiple medical problems who presents with classic exertional angina for the past week. He states his biometrics instructor Dr. Caceres. He is presently pain-free. He denies history of black or maroon stool. He denies any respiratory infectious symptoms. He denies fever chills. He denies headache, visual, ocular auditory symptoms. He denies symptoms of claudication. He states his biometrics instructor Dr. Caceres. He states he has several stents. 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 (4) CAD (coronary artery disease) Status: Chronic (5) Cardiomyopathy Status: Chronic (6) Chronic renal failure, stage 3 (moderate) Status: Chronic (7) Diabetes mellitus type 2 in nonobese Status: Chronic (8) Dilated cardiomyopathy Status: Chronic Comment: 15% EF (9) Essential hypertension Status: Chronic (10) History of appendectomy Status: Chronic (11) History of implantable cardioverter-defibrillator (ICD) placement Status: Chronic Comment: Implant: 06/2000; Generator change: 03/17/2008 (12) Hypothyroidism Status: Chronic (13) Mixed hyperlipidemia Status: Chronic (14) Mixed sleep apnea Status: Chronic Comment: BiPAP 17/11 mm of water with a backup rate of 12 (15) Paroxysmal ventricular tachycardia Status: Chronic (16) Presence of coronary angioplasty implant and graft Status: Chronic Comment: PTCA and stenting of the LAD and diagonal 09/23/2006 Past Medical History - Allergies and Home Meds Allergies/Adverse Reactions: Allergies atorvastatin [From Lipitor] Adverse Reaction (Verified 11/02/19 08:15) myalgia leflunomide [From Arava] Adverse Reaction (Verified 11/02/19 08:15) PROBLEMS WITH MY FEET simvastatin [From Zocor] Adverse Reaction (Verified 11/02/19 08:15) myalgia Primary Care Physician: Miguel Pineda MD [Primary Care Provider] - Prior records reviewed: Yes Surgical History: angioplasty, appendectomy, pacemaker implantation, - - AICD, appendectomy, PCI. Lives: With Family Smoking Status: Former smoker Alcohol: Occasional Drugs: None - Family History Paternal Family History: Family History (Last Reviewed 09/23/19 @ 09:01 by Krystina Synder) Mother Alzheimers disease Brother Cancer Brother Hypertension Brother CAD (coronary artery disease) Sister CAD (coronary artery disease) Sister Breast cancer Family History: Reports: Pulmonary Disease - emphysema, s/p lobectomy Maternal Family History: Family History (Last Reviewed 09/23/19 @ 09:01 by Krystina Snyder) Mother Alzheimers disease Brother Cancer Brother Hypertension Brother CAD (coronary artery disease) Sister CAD (coronary artery disease) Sister Breast cancer Family History: Reports: Dementia, Heart Disease Sibling Family History: Family History (Last Reviewed 09/23/19 @ 09:01 by Krystina Snyder) Mother Alzheimers disease Brother Cancer Brother Hypertension Brother CAD (coronary artery disease) Sister CAD (coronary artery disease) Sister Breast cancer Family History: Reports: Heart Disease Offspring Family History: Family History (Last Reviewed 09/23/19 @ 09:01 by Krystina Snyder) Mother Alzheimers disease Brother Cancer Brother Hypertension Brother CAD (coronary artery disease) Sister CAD (coronary artery disease) Sister Breast cancer Family History: Reports: No pertinent history Review of Systems General: Denies: Chills, Fever, Sweats Eyes: Denies: Visual changes - bilaterally, Blurred Vision - bilaterally, Diplopia ENT: Denies: Rhinorrhea, Sore throat Cardiovascular: Reports: Chest pain. Denies: Palpitations Respiratory: Reports: Dyspnea, Dyspnea on exertion. Denies: Orthopnea, Paroxysmal nocturnal dyspnea Gastrointestinal: Reports: Nausea. Denies: Abdominal pain, Vomiting, Diarrhea, Melena, Hematochezia Genitourinary: Denies: Dysuria, Hematuria, Frequency Musculoskeletal: Denies: Myalgias, Arthralgias, Neck pain, Back pain, Swelling, Extremity Pain Skin: Denies: Rash, Wounds Neurological: Denies: Headache, Weakness, Numbness Endocrine: Denies: Polyuria, Polydipsia Hematologic: Reports: Easy bruising Allergy: Reports: - - Venous stasis dermatitis Physical Exam Vital Signs/Narrative: Vital Signs Temp Pulse Resp BP Pulse Ox 11/02/19 08:26 100 11/02/19 08:25 65 17 127/72 H 100 11/02/19 08:13 97.4 F L 66 16 89/52 L 96 General: Well nourished, Well developed, No Acute Distress Head: Normocephalic, Atraumatic Eyes: Perrl, EOMI. Negative for: Pale conjunctiva, Scleral icterus ENT: Moist mucous membranes, No rhinorrhea Neck: Supple, Nontender Cardiovascular: Regular rate, Regular rhythm, No murmurs, Normal S1, Normal S2 Respiratory: No distress, CTA bilaterally, Chest nontender Abdomen: Soft, Nontender, Nondistended, Normal bowel sounds Back: Nontender, Normal Inspection Extremities: Nontender, No edema Skin: Normal color, No rash Neurological: Alert, Oriented x3, Cranial nerves II-XII grossly intact, Normal Strength, Normal Sensation Psychological: Normal affect, Normal Mood Diagnostic/Tx/Re-eval Chest X-Ray - ED: 1 View, Read by ED Physician, No Acute Disease, Chronic Changes 11/02/19 09:08 Chest 1 View (Portable) [RAD] Stat Laboratory Results 11/02/19 11/02/19 08:45 08:45 WBC 5.8 RBC 3.99 L Hgb 12.6 L Hct 39.2 L MCV 98.2 H MCH 31.6 MCHC 32.1 RDW Std Deviation 51.8 H RDW Coeff of [place]cel[place] 14.2 Plt Count 153 MPV 9.3 Immature Gran % (Auto) 0.500 Neut % (Auto) 63.9 Lymph % (Auto) 21.2 Brooks % (Auto) 11.6 H Eos % (Auto) 2.3 Baso % (Auto) 0.5 Absolute Neuts (auto) 3.7 Absolute Lymphs (auto) 1.22 Nucleated RBC % 0 Sodium 141 Potassium 3.9 Chloride 104 Carbon Dioxide 32.0 Anion Gap 5 BUN 31 H Creatinine 2.63 H Estim Creat Clear Calc 22.27 Est GFR (MDRD) Af Amer 30 L Est GFR (MDRD) Non-Af 25 L BUN/Creatinine Ratio 11.8 Glucose 100 Calcium 9.2 Troponin I < 0.015 Work is unremarkable. Chest x-ray was interpreted by me as no acute changes. The chest x-ray unchanged from June 25, 2019. There is a pacemaker/defibrillator noted. Borderline cardiomegaly. Prominent mediastinum. Minimal degenerative joint disease noted of the osseous structures. There is no evidence of congestive heart failure, infiltrate or effusion. - Rhythm Strip Rhythm Strip: Sinus Rhythm - EKG Initial EKG Interpretation: Sinus Rhythm - Anus rhythm with first-degree AV block and premature ventricular beats. Ventricular rate is 64. MT interval is 232 ms. QRS duration 134 ms. QT duration 420 ms. Golden is to the left. There is nonspecific ST-T wave changes noted. This appears unchanged from prior. - Medical Decision Making Presents with classic exertional angina. Patient has multiple risk factors. Patient is presently pain-free. Work-up was undertaken to rule out non-ST elevation VT, exertional angina, noncardiac etiology. We will discuss case with cardiology regarding anticoagulation. Hospitalist was paged for admission. Case was discussed with Dr. Caceres. He requested that the patient not be anticoagulated. He will see patient determine if patient needs stress test versus cardiac cath. Case was discussed with hospitalist. ED Disposition - Plan for ED Patient: Disposition: Acute Care Hospital [facility] Diagnosis: Exertional angina Referrals: Miguel Pineda MD [Primary Care Provider] -
[2019-11-02 09:16] LABS: Anion Gap 5 (5-15); BUN 31 mg/dL (7-18); BUN/Creat Ratio 11.8 RATIO (10-20); Calcium,Total 9.2 mg/dL (8.5-10.1); Chloride 104 mmol/L (98-107); Creatinine, Serum 2.63 mg/dL (0.70-1.30); EST Glomerular Filtration Rate 25 mL/min (>60); Est Glom Filt Rate - Afr Amer 30 mL/min (>60); Estimated Creatinine Clearance 22.27 ml/min; Glucose 100 mg/dL (74-106); Potassium 3.9 mmol/L (3.5-5.1); Sodium Level 141 mmol/L (136-145)
--- NOTE | 2019-11-02 09:29 | HP.PCM_ITS ---
Problem List (1) Chest pain Status: Acute Qualifiers: Chest pain type: unspecified Qualified Code(s): R07.9 - Chest pain, unspecified (2) CAD (coronary artery disease) Status: Chronic Qualifiers: Coronary Disease-Associated Artery/Lesion type: [place] artery [place] vs. transplanted heart: [place] heart Associated angina: with unstable angina Qualified Code(s): I25.110 - Atherosclerotic heart disease of [place] coronary artery with unstable angina pectoris (3) History of implantable cardioverter-defibrillator (ICD) placement Status: Chronic (4) Essential hypertension Status: Chronic (5) Mixed sleep apnea Status: Chronic Comment: BiPAP 17/11 mm of water with a backup rate of 12 (6) Dilated cardiomyopathy Status: Chronic Comment: 15% EF (7) Hypothyroidism Status: Chronic Qualifiers: Hypothyroidism type: unspecified History of Present Illness Date of Admission: 11/02/19 Chief Complaint: Dizziness, generalised weakness - 1 week. Chest pain - 1 day The patient is a 84 year old M with past medical history of CAD status post stent to LAD, status post recent cardiac catheterization in May 2019, medically managed, ischemic cardiomyopathy, type II DM, diet controlled, CKD stage III who comes in with complaints of dizziness and weakness ongoing for about 1 week. Patient stated that he is been weak with dizziness over the past 1 week with feeling that his knees are going to buckle. He denies any passing out. Last night, when he was going to bed he had a left-sided substernal chest pain that was dull. It made him nauseous. No diaphoresis. Chest pain initially was light, woke up this morning with chest pain still present. He took a tablet of nitro and that did not help. He decided to come to the ED. In the ED showed temperature of 90 7.4F, blood pressure 89/52, respiratory 16, SPO2 was 96% on room air. Blood pressures improved to 127/72. WBC count was 5.8, hemoglobin 12.6, platelet count 133, BMP was unremarkable showed creatinine of 2.6, which is close to his baseline. Opponens x1 is negative. EKG was unchanged from previous. No acute ST-T changes. Admitting chest x-ray showed cardiomegaly, stable mild linear scarring at the lung bases. Orthostatic vitals on the telemetry floor were positive. Past Medical History Past Medical History (Chronic Problems): Chronic Problems (Last Reviewed 09/23/19 @ 09:01 by Krystina Snyder) CAD (coronary artery disease) (Chronic) 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) History of appendectomy (Chronic) Presence of coronary angioplasty implant and graft (Chronic ~09/23/06) PTCA and stenting of the LAD and diagonal 09/23/2006 Abnormal echocardiogram (Chronic) Mixed hyperlipidemia (Chronic) Atherosclerotic heart disease of [place] coronary artery without angina pectoris (Chronic) PTCA and stenting of the LAD and diagonal 09/23/2006 Essential hypertension (Chronic) Mixed sleep apnea (Chronic) BiPAP 17/11 mm of water with a backup rate of 12 Hypersomnolence disorder (Chronic) Dilated cardiomyopathy (Chronic) 15% EF Paroxysmal ventricular tachycardia (Chronic) Abnormal result of cardiovascular function study, unspecified (Chronic) 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) Implant: 06/2000; Generator change: 03/17/2008 Hypothyroidism, iatrogenic (Chronic) 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) Chronic renal failure, stage 3 (moderate) (Chronic) Diabetes mellitus type 2 in nonobese (Chronic) Sustained ventricular tachycardia (Chronic) Hypothyroidism (Chronic) Cardiomyopathy (Chronic) Medical History: Medical History (Last Reviewed 09/23/19 @ 09:01 by Krystina Snyder) History of left heart catheterization (LHC) (Resolved) Onset Date: ~06/18/19 Z98.890 - Per Cath 06/18/19- LEFT MAIN: distal: eccentric: 25 % Stenosis; LEFT ANTERIOR DESCENDING ARTERY: PROX LAD: Previously placed stent is patent with mild luminal irregularities, Previously placed stent has an instent proximal: 25 - 50 % restenosis, MID LAD: Mild luminal irregularities; DIAGONAL 1: Proximal - Previously placed stent is patent with mild luminal irregularities; CIRCUMFLEX ARTERY: PROX CIRC: eccentric: 25 % Stenosis, Previously placed stent is patent with mild luminal irregularities; OM 1: Proximal - 25 % Stenosis (small caliber vessel), OM 2: Mid - Mild luminal irregularities; RIGHT CORONARY ARTERY: PROX RCA: diffuse: eccentic: 25 % Stenosis, MID RCA: eccentric: 25 - 50 % Stenosis, DISTAL RCA: diffuse: eccentric: 10 - 25 % Stenosis; RT PDA: Proximal - Mild luminal irregularities. - Per cath 01/05/19- LEFT MAIN: distal: eccentric: 25 % Stenosis; LEFT ANTERIOR DESCENDING ARTERY: PROX LAD: Previously placed stent is patent with minimal luminal irregularities, MID LAD: Mild luminal irregularities, 25 % Stenosis, DISTAL LAD: Mild luminal irregularities; DIAGONAL 1: Proximal - Previously placed stent is patent with minimal luminal irregularities; CIRCUMFLEX ARTERY: PROX CIRC: Previously placed stent is patent with minimal luminal irregularities, OM 2: Mid - Mild luminal irregularities, RIGHT CORONARY ARTERY: Mild luminal irregularities, PROX RCA: diffuse: eccentric: 25 % Stenosis, MID RCA: eccentric: 25 - 50 % Stenosis, DISTAL RCA: diffuse: eccentric: 10 - 25 % Stenosis; RT PDA: Proximal - Mild luminal irregularities. 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) I70.219 Chronic renal failure, stage 3 (moderate) (Chronic) N18.3 Diabetes mellitus type 2 in nonobese (Chronic) E11.9 Sustained ventricular tachycardia (Chronic) I47.2 Hypothyroidism (Chronic) E03.9 Cardiomyopathy (Chronic) I42.9 Fatigue (Resolved) R53.83 Myalgia (Resolved) M79.1 Allergies atorvastatin [From Lipitor] Adverse Reaction (Verified 11/02/19 08:15) myalgia leflunomide [From Arava] Adverse Reaction (Verified 11/02/19 08:15) PROBLEMS WITH MY FEET simvastatin [From Zocor] Adverse Reaction (Verified 11/02/19 08:15) myalgia Home Medications: Ambulatory Orders Medication Instructions Recorded Aspirin 325 mg PO DAILY@199905/22/16 Colchicine 0.6 mg PO DAILY 05/22/16 Finasteride [Proscar] 5 mg PO DAILY 05/22/16 Levothyroxine [Synthroid] 50 mcg PO DAILY 05/22/16 Tamsulosin HCl [Flomax] 0.4 mg PO DAILY 05/22/16 nitroglycerin 0.4 mg sublingual 0.4 mg SUBLINGUAL Q5-15M PRN #25 11/16/18 tablet tab Prednisone 5 mg PO DAILY #0 02/10/19 Pravastatin Sodium 20 mg PO DAILY 03/25/19 albuterol sulfate 2.5 mg INHALATION Q4H PRN 04/13/19 clopidogrel 75 mg tablet 75 mg PO DAILY #90 tab 04/19/19 Furosemide 40 mg PO DAILY 05/29/19 Hydroxychloroquine [Plaquenil] 200 mg PO DAILY 05/29/19 Cholecalciferol (Vitamin D3) 25 mcg PO DAILY 06/17/19 [Vitamin D3] carvedilol 12.5 mg tablet 6.25 mg PO BID tab 07/05/19 isosorbide mononitrate 30 mg 30 mg PO DAILY #90 tab 07/27/19 tablet,extended release 24 hr amiodarone 200 mg tablet 200 mg PO BID tab 08/02/19 tramadol 50 mg tablet ea PO 08/02/19 Surgical History: Surgical History (Last Reviewed 09/23/19 @ 09:01 by Krystina Snyder) History of appendectomy (Chronic) Z98.890, Z90.49 Presence of coronary angioplasty implant and graft (Chronic) Onset Date: ~09/23/06 Z95.5 PTCA and stenting of the LAD and diagonal 09/23/2006 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) Z95.810 Implant: 06/2000; Generator change: 03/17/2008 Surgical History: angioplasty, appendectomy, pacemaker implantation, - - AICD, appendectomy, PCI. Psychiatric History: No pertinent psych hx Lives: With Family Smoking Status: Former smoker Alcohol: Occasional Drugs: None - *Family History Paternal Family History: Family History (Last Reviewed 09/23/19 @ 09:01 by Krystina Snyder) Mother Alzheimers disease Brother Cancer Brother Hypertension Brother CAD (coronary artery disease) Sister CAD (coronary artery disease) Sister Breast cancer History Items: Pulmonary Disease - emphysema, s/p lobectomy Maternal Family History: Family History (Last Reviewed 09/23/19 @ 09:01 by Krystina Snyder) Mother Alzheimers disease Brother Cancer Brother Hypertension Brother CAD (coronary artery disease) Sister CAD (coronary artery disease) Sister Breast cancer History Items: Dementia, Heart Disease Sibling Family History: Family History (Last Reviewed 09/23/19 @ 09:01 by Krystina Snyder) Mother Alzheimers disease Brother Cancer Brother Hypertension Brother CAD (coronary artery disease) Sister CAD (coronary artery disease) Sister Breast cancer History Items: Heart Disease Offspring Family History: Family History (Last Reviewed 09/23/19 @ 09:01 by Krystina Snyder) Mother Alzheimers disease Brother Cancer Brother Hypertension Brother CAD (coronary artery disease) Sister CAD (coronary artery disease) Sister Breast cancer History Items: No pertinent history Review of Systems Constitutional: Reports: Malaise, Weakness, Fatigue. Denies: Anorexia, Chills, Fever, Night Sweats, Weight Change Eyes: Denies: Blurred vision, Cataracts, Conjunctivae Inflammation, Pain, Redness, Vision Change HEENT: Denies: Difficulty Hearing, Difficulty Swallowing, Head Aches, Hearing Changes, Sinus Congestion, Sinus Drainage Cardiovascular: Reports: Chest Pain, Chest Tightness, Light Headedness. Denies: Claudication, Orthopnea, Palpitations, Paroxysmal Noc. Dyspnea, Syncope Respiratory: Denies: Cough, Hemoptysis, Shortness of Breath, Shortness of breath at rest, Shortness of breath upon exertion, Sputum production Gastrointestinal: Denies: Abdominal Pain, Constipation, Nausea, Vomiting Genitourinary: Denies: Dysuria, Incontinence Musculoskeletal: Denies: Joint Pain, Joint stiffness, Joint swelling, Joint Tenderness Skin: Denies: Pruritis, Rash, Wounds Neurological: Denies: Numbness, Tingling, Focal weakness Psychiatric: Denies: Anxiety, Depression, Homicidal Ideations, Suicidal Ideations Hematologic/ Lymphatic: Denies: Easy Bruising, Easy Bleeding VTE Information - Inpt Only VTE Present on Admission: No VTE Pharm Prophylaxis ordered?: Yes Patient Problems: Active and Suspected Problems (Last Reviewed 09/23/19 @ 09:01 by Krystina Snyder) Exertional angina (Acute) - Physical Exam Vitals/I&O's: Vital Signs Temp Pulse Resp BP Pulse Ox 97.4 F L 65 17 127/72 H 100 11/02/19 08:13 11/02/19 08:25 11/02/19 08:25 11/02/19 08:25 11/02/19 08:26 Oxygen Delivery Method Room Air Weight: 84.8 kg Body Mass Index (BMI) 26.0 General: Alert, Oriented x3, Cooperative, No apparent distress HEENT: Atraumatic, PERRLA, EOMI, Normocephalic Oral: Moist Mucosa Neck: Supple Lungs: Clear to auscultation, Normal air movement Cardiovascular: Regular rate, Regular Rhythm, Normal S1, Normal S2, No murmurs Abdomen: Bowel Sounds Present, Soft, Non Tender, Non-Distended, No Hepato- splenomegaly Extremities: No edema Skin: - - hyperpigmentation of both upper extremities Musculoskeletal: No Tenderness to Palpation of Joints or Extremities Lymphatic: No Cervical, Supraclavicular, or Inguinal Adenopathy Neurological: Cranial nerves II-XII grossly intact, Neuro grossly intact Psych/Mental Status: Normal Affect, Appropriate Laboratory Results 11/02/19 08:45: WBC 5.8, RBC 3.99 L, Hgb 12.6 L, Hct 39.2 L, MCV 98.2 H, MCH 31.6, MCHC 32.1, RDW Std Deviation 51.8 H, RDW Coeff of [place] 14.2, Plt Count 153, MPV 9.3, Immature Gran % (Auto) 0.500, Neut % (Auto) 63.9, Lymph % (Auto) 21.2, Mcmullen % (Auto) 11.6 H, Eos % (Auto) 2.3, Baso % (Auto) 0.5, Absolute Neuts (auto) 3.7, Absolute Lymphs (auto) 1.22, Nucleated RBC % 0 11/02/19 08:45: Sodium 141, Potassium 3.9, Chloride 104, Carbon Dioxide 32.0, Anion Gap 5, BUN 31 H, Creatinine 2.63 H, Estim Creat Clear Calc 22.27, Est GFR (MDRD) Af Amer 30 L, Est GFR (MDRD) Non-Af 25 L, BUN/Creatinine Ratio 11.8, Glucose 100, Calcium 9.2, Troponin I < 0.015 Assessment/Plan All Active Problems (Last Reviewed 09/23/19 @ 09:01 by Krystina Snyder) Exertional angina (Acute) Dysrhythmia, cardiac (Acute) Chest pain (Acute) Angina pectoris (Acute) Near syncope (Resolved) History of left heart catheterization (LHC) (Resolved ~06/18/19) Acute on chronic combined systolic and diastolic heart failure (Resolved) Chest pain (Resolved) Fatigue (Resolved) Hypoxia (Resolved) Myalgia (Resolved) 1. Dizziness, generalized weakness secondary to orthostatic hypotension Creatinine 2.63, is about his baseline. We will continue on IV fluid boluses with maintenance IV fluids 2. Chest pain, unclear if this is unstable angina, History of CAD status post stent to LAD, diffuse CAD, medically being managed Continue on aspirin, Plavix, carvedilol, isosorbide, pravastatin 3. History of paroxysmal V. tach, in normal sinus rhythm, continue amiodarone 4. Hypothyroidism, continue levothyroxine 5. Chronic arthritis, unclear if this is rheumatoid arthritis Patient is on Plaquenil and prednisone, stable, will continue same 6. BPH, continue finasteride and Flomax 7. DVT ppx- Lovenox, renally dosed 8. CODE STATUS - DNR CCA no intubation I discussed goals of care with patient. I went on to explain in details the various types of CODE STATUS-full code, DNR CCA, DNR CC. Patient elected to be DNR CCA. He does not want to be resuscitated should he have a cardiopulmonary arrest. Time spent discussing CODE STATUS 17 minutes OBSV E&M: 10360 Initial observation care L3 Procedures: [id number] Advncd Care Plan 30 Min
--- NOTE | 2019-11-02 11:40 | EKG12_ITS ---
Test Reason : C.P. ADMISSION Blood Pressure : / mmHG Vent. Rate : 064 BPM Atrial Rate : 064 BPM P-R Int : 178 ms QRS Dur : 136 ms QT Int : 450 ms P-R-T Axes : 039 -28 117 degrees QTc Int : 464 ms Normal sinus rhythm Non-specific intra-ventricular conduction block T wave abnormality, consider lateral ischemia Abnormal ECG When compared with ECG of 29-AUG-2019 22:02, [place] interval has decreased Confirmed by ADELA GALLARDO, CINDI ([id number]), commercial production editor SHE BURLESON ([id number]) on 11/05/2019 1:42:57 PM Referred By: YESENIA Confirmed By:BENNIE CHAPMAN MD
[2019-11-02] MEDS: Finasteride 5 MG Tablet PO (12:32)
[2019-11-02] MEDS: Enoxaparin 30 MG/0.3 ML Syringe SC (12:32)
[2019-11-02] MEDS: Carvedilol 12.5 MG Tablet 6.25 MG PO ×2 (12:32→21:22)
[2019-11-02] MEDS: Clopidogrel Bisulfate 75 MG Tablet PO (12:33)
[2019-11-02] MEDS: Amiodarone 200 MG Tablet PO ×2 (12:33→21:22)
[2019-11-02] MEDS: 0.9% Saline Lock 10 ML Syringe IV (12:37)
[2019-11-02] MEDS: 0.9% Normal Saline 1,000 ML 100 ML IV ×2 (12:46→22:57)
[2019-11-02] MEDS: Pravastatin 20 MG Tablet PO (13:34)
[2019-11-02] MEDS: Tamsulosin HCl 0.4 MG Capsule PO (13:34)
[2019-11-02] MEDS: Isosorbide Mononitrate 30 MG Tablet PO (13:34)
[2019-11-02] MEDS: Hydroxychloroquine 200 MG Tablet PO (13:34)
[2019-11-02] MEDS: predniSONE 10 MG Tablet 5 MG PO (13:35)
--- NOTE | 2019-11-02 13:36 | CON.PCM_ITS ---
Problem List (1) Angina pectoris Status: Acute (2) Shortness of breath Status: Inactive (3) CAD (coronary artery disease) Status: Chronic Qualifiers: Coronary Disease-Associated Artery/Lesion type: [place] artery [place] vs. transplanted heart: [place] heart Associated angina: with unstable angina Qualified Code(s): I25.110 - Atherosclerotic heart disease of [place] coronary artery with unstable angina pectoris (4) S/P PTCA (percutaneous transluminal coronary angioplasty) Status: Acute (5) Cardiomyopathy Status: Chronic Qualifiers: Cardiomyopathy type: ischemic Qualified Code(s): I25.5 - Ischemic cardiomyopathy (6) Paroxysmal ventricular tachycardia Status: Chronic (7) History of implantable cardioverter-defibrillator (ICD) placement Status: Chronic (8) Mixed hyperlipidemia Status: Chronic (9) Essential hypertension Status: Chronic (10) Diabetes mellitus type 2 in nonobese Status: Chronic (11) Acute renal failure superimposed on stage 3 chronic kidney disease Status: Inactive Comment: 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 (12) Dehydration Status: Inactive (13) Hypothyroidism Status: Chronic Qualifiers: Hypothyroidism type: unspecified Reason for Consult Date of Consultation: 11/02/19 History of Present Illness: The patient is a 84 year old white male with a past medical history of CAD, LAD/diagonal branch PCI-remote, cardiomyopathy, paroxysmal ventricular tachycardia, ICD, hyperlipidemia, hypertension, diabetes mellitus, chronic renal sufficiency who presents for concerns of angina pectoris,. shortness of breath, and dizzines. He states recently he has been having episodes of chest discomfort which he describes as a dull discomfort and a hurting discomfort as he points to the left side of his chest. He has used nitroglycerin sublingual tablets with some relief. He has not complained of acute orthopnea or PND or worsening peripheral pitting edema. He has had no near syncope or syncope. He states his device has not discharged. Does note episodes of shortness of breath more so with activity. He also states that with positional changes he feels somewhat dizzy and lightheaded. He states based upon an episode yesterday evening when he was helping his into bed where he felt a variety of symptoms including his chest discomfort, was somewhat more short of breath with activity, and felt somewhat more dizzy upon positional changes, he elected to present to the emergency department this day for further evaluation. There he was found to have a negative troponin I level. His ECG demonstrated the appearance of underlying sinus rhythm with a first-degree AV block with left axis deviation with an incomplete left bundle branch block pattern and nonspecific ST/T wave change. This was repeated after he arrived in the PCU and demonstrated no significant change. He has been taking his medications at home as prescribed. He remains active at home. He has denied any other concerning fever, chills, night sweats, or respiratory related type symptoms. He states at rest he is feeling fine with no acute complaints. [] Past Medical History Allergies/Adverse Reactions: Allergies atorvastatin [From Lipitor] Adverse Reaction (Verified 11/02/19 08:15) myalgia leflunomide [From Arava] Adverse Reaction (Verified 11/02/19 08:15) PROBLEMS WITH MY FEET simvastatin [From Zocor] Adverse Reaction (Verified 11/02/19 08:15) myalgia Home Medications: Ambulatory Orders Medication Instructions Recorded Aspirin 325 mg PO DAILY@199905/22/16 Colchicine 0.6 mg PO DAILY 05/22/16 Finasteride [Proscar] 5 mg PO DAILY 05/22/16 Levothyroxine [Synthroid] 50 mcg PO DAILY 05/22/16 Tamsulosin HCl [Flomax] 0.4 mg PO DAILY 05/22/16 nitroglycerin 0.4 mg sublingual 0.4 mg SUBLINGUAL Q5-15M PRN #25 11/16/18 tablet tab Prednisone 5 mg PO DAILY #0 02/10/19 Pravastatin Sodium 20 mg PO DAILY 03/25/19 albuterol sulfate 2.5 mg INHALATION Q4H PRN 04/13/19 clopidogrel 75 mg tablet 75 mg PO DAILY #90 tab 04/19/19 Furosemide 40 mg PO DAILY 05/29/19 Hydroxychloroquine [Plaquenil] 200 mg PO DAILY 05/29/19 Cholecalciferol (Vitamin D3) 25 mcg PO DAILY 06/17/19 [Vitamin D3] carvedilol 12.5 mg tablet 6.25 mg PO BID tab 07/05/19 isosorbide mononitrate 30 mg 30 mg PO DAILY #90 tab 07/27/19 tablet,extended release 24 hr amiodarone 200 mg tablet 200 mg PO BID tab 08/02/19 tramadol 50 mg tablet ea PO 08/02/19 Past Medical History (Chronic Problems): Chronic Problems (Last Reviewed 09/23/19 @ 09:01 by Krystina Snyder) CAD (coronary artery disease) (Chronic) 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) History of appendectomy (Chronic) Presence of coronary angioplasty implant and graft (Chronic ~09/23/06) PTCA and stenting of the LAD and diagonal 09/23/2006 Abnormal echocardiogram (Chronic) Mixed hyperlipidemia (Chronic) Atherosclerotic heart disease of [place] coronary artery without angina pectoris (Chronic) PTCA and stenting of the LAD and diagonal 09/23/2006 Essential hypertension (Chronic) Mixed sleep apnea (Chronic) BiPAP 17/11 mm of water with a backup rate of 12 Hypersomnolence disorder (Chronic) Dilated cardiomyopathy (Chronic) 15% EF Paroxysmal ventricular tachycardia (Chronic) Abnormal result of cardiovascular function study, unspecified (Chronic) 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) Implant: 06/2000; Generator change: 03/17/2008 Hypothyroidism, iatrogenic (Chronic) 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 Psychiatric History: No pertinent psych hx - *Family History Paternal Family History: Family History (Last Reviewed 09/23/19 @ 09:01 by Krystina Snyder) Mother Alzheimers disease Brother Cancer Brother Hypertension Brother CAD (coronary artery disease) Sister CAD (coronary artery disease) Sister Breast cancer History Items: Pulmonary Disease - emphysema, s/p lobectomy Maternal Family History: Family History (Last Reviewed 09/23/19 @ 09:01 by Krystina Snyder) Mother Alzheimers disease Brother Cancer Brother Hypertension Brother CAD (coronary artery disease) Sister CAD (coronary artery disease) Sister Breast cancer History Items: Dementia, Heart Disease Sibling Family History: Family History (Last Reviewed 09/23/19 @ 09:01 by Krystina Snyder) Mother Alzheimers disease Brother Cancer Brother Hypertension Brother CAD (coronary artery disease) Sister CAD (coronary artery disease) Sister Breast cancer History Items: Heart Disease Offspring Family History: Family History (Last Reviewed 09/23/19 @ 09:01 by Krystina Snyder) Mother Alzheimers disease Brother Cancer Brother Hypertension Brother CAD (coronary artery disease) Sister CAD (coronary artery disease) Sister Breast cancer History Items: No pertinent history Lives: With Family Smoking Status: Former smoker Alcohol: Occasional Drugs: None Review of Systems - Review of Systems General: Denies: Fever, Night Sweats, Fatigue Cardiovascular: Reports: Chest Discomfort, Chest Discomfort with Exertion, Shortness of Breath, Shortness of Breath with Exertion, Dizziness. Denies: Orthopnea, PND, Peripheral Edema, Palpitations, Lightheadedness, Near Syncope, Syncope Respiratory: Reports: Shortness of Breath. Denies: Cough, Sputum Production, Hemoptysis Gastrointestinal: Denies: Hematemesis, Hematochezia, Melena Genitourinary: Denies: Dysuria, Hematuria Skin: Denies: Rash Subjectve: This is an 84-year-old white male who appears to be resting comfortably at the moment in no acute distress. Objective: Vital Signs Temp Pulse Resp BP Pulse Ox 98.2 F 64 14 140/70 H 99 11/02/19 10:28 11/02/19 11:31 11/02/19 10:28 11/02/19 11:31 11/02/19 10:28 Oxygen Delivery Method Room Air Weight: 182 lb 5.156 oz Body Mass Index (BMI) 25.4 Orthostatic Vital Signs Start: 11/02/19 11:31 Freq: q24h Status: Active Protocol: Activity Type Activity Date Activity User E-Sign Co-Sign Detail Recorded Client Recorded Date Recorded By Document 11/02/19 11:31 LIBERTY [id number] 11/02/19 11:37 LIBERTY 11/02/19 11:31 Orthostatic Vitals Standing -Blood Pressure (90/60-120/80) 114/66 -Extremity Use Left Arm -Pulse Rate (60-100) 65 Sitting -Blood Pressure (90/60-120/80) 129/68 H -Extremity Use Left Arm -Pulse Rate (60-100) 65 Lying -Blood Pressure (90/60-120/80) 140/70 H -Extremity Use Left Arm -Pulse Rate (60-100) 64 Intake and Output for Last 24 Hours 10/31/19 11/01/19 11/02/19 23:59 23:59 23:59 Intake Total 250 / 250 Balance 250 / 250 General: Awake, Alert, Oriented x 3, Cooperative, No Acute Distress HEENT: Atraumatic, Normocephalic, PERRL, EOMI Neck: Supple, Good ROM, No JVD Lungs: Clear to auscultation Cardiovascular: Regular Rhythm, Normal S1, Normal S2 Abdomen: Bowel Sounds Present, Soft, Non Tender Extremities: No edema Neurological: No Focal Motor or Sensory Deficit Psych/Mental Status: Appropriate 11/02/19 08:45: WBC 5.8, RBC 3.99 L, Hgb 12.6 L, Hct 39.2 L, MCV 98.2 H, MCH 31. 6, MCHC 32.1, Plt Count 153, MPV 9.3, Immature Gran % (Auto) 0.500, Neut % (Auto) 63.9, Lymph % (Auto) 21.2, [place] % (Auto) 11.6 H, Eos % (Auto) 2.3, Baso % (Auto) 0.5, Absolute Neuts (auto) 3.7, Nucleated RBC % 0 11/02/19 08:45: Sodium 141, Potassium 3.9, Chloride 104, Carbon Dioxide 32.0, Anion Gap 5, BUN 31 H, Creatinine 2.63 H, Est GFR (MDRD) Af Amer 30 L, Est GFR (MDRD) Non-Af 25 L, BUN/Creatinine Ratio 11.8, Glucose 100, Calcium 9.2, Troponi n I < 0.015 11/02/19 11:48: Troponin I 0.019 Rhythm: Sinus rhythm EKG: As noted above ECHO: ??2018 Interpretation Summary Moderately dilated left ventricle. Severe segmental systolic dysfunction (see wall motion). The estimated ejection fraction is 15 %. Mild global right ventricular systolic dysfunction. The left atrium is moderately enlarged. The right atrium is mildly enlarged. Mild diffuse mitral valve thickening. Mild papillary muscle dysfunction of the mitral valve. Mild-Moderate (1-2+) mitral valve insufficiency. Moderate (2+) tricuspid valve insufficiency. Mild focal aortic valve calcification. Mild (1+) aortic valve insufficiency. Mild (1+) pulmonic valve insufficiency. Borderline enlarged aortic root. Right ventricular systolic pressure estimated to be 41 mmHg. Transmitral diastolic flow velocities suggest diastolic dysfunction (pseudonormal pattern). ICD or pacer leads identified within the right atrium ICD or pacer leads identified within the right ventricle. Stress Test: 11-06-18 Procedure: Pharmacologic stress nuclear imaging study Indications: Chest pain Consent: Per the patient Procedure: The patient underwent pharmacologic (Regadenoson) evaluation with a peak heart rate of 85 beats per minute (62 %predicted maximal heart rate) and a peak blood pressure of 116/70 mmHg. The baseline ECG demonstrated normal sinus rhythm, nonspecific intraventricular conduction delay, possible prior anterior OK, nonspecific ST-T changes. EKG during lexiscan infusion revealed no significant change from baseline. EKG post infusion revealed no significant change from baseline [There were no cardiac dysrhythmias pretest, during pharmacologic infusion, or recovery]. [There was no complaint of chest discomfort during pharmacologic infusion or recovery]. The examination was discontinued secondary to completion of protocol. Impression: 1. Lexiscan stress test test is negative for Lexiscan infusion induced EKG changes of ischemia. 2. Lexiscan stress test test is negative for Lexiscan infusion induced chest pain. 3. Results of the nuclear portion of the test is as below Myocardial perfusion imaging study: Technique: The patient was injected with 12 millicuries of technetium 99m Cardiolite and subsequently rest SPECT Cardiolite nuclear imaging was obtained in the horizontal long, vertical long, and short axis views. The patient underwent pharmacologic (Regadenoson) evaluation. Please see above for details. The patient was injected with 31.2 millicuries of technetium 99m Cardiolite and subsequently stress SPECT Cardiolite nuclear imaging was obtained in the horizontal long, vertical long, and short axis views. A gated Cardiolite study at peak stress was obtained. Interpretation: Rest and stress SPECT Cardiolite nuclear imaging status post realignment, normalization, and attenuation correction demonstrate moderately decreased radioisotope uptake in the apex on both the rest and stress images. This is suggestive of prior apical myocardial infarction. Prior to attenuation corre ction there is also decreased radioisotope uptake in the inferior wall that gets better with attenuation correction suggestive of diaphragmatic attenuation artifact. There is no evidence of significant ischemia. Gated images reveal severe global hypokinesis. The reported LVEF is 18 %. Impression: 1. There is no evidence of significant ischemia. 2. Estimated ejection fraction is 18%. Cardiac Cath: 01-05-19 CORONARY ANGIOGRAPHY DOMINANCE: Right Dominant LEFT HEART ASSESSMENT Left Ventricular Ejection Fraction: Not assessed Elevated Left Ventricular End Diastolic Pressure LVEDP: 25 mmHg LEFT MAIN: distal: eccentric: 25 % Stenosis LEFT ANTERIOR DESCENDING ARTERY: PROX LAD: Previously placed stent is patent with minimal luminal irregularities MID LAD: Mild luminal irregularities, 25 % Stenosis DISTAL LAD: Mild luminal irregularities DIAGONAL 1: Proximal - Previously placed stent is patent with minimal luminal irregularities CIRCUMFLEX ARTERY: PROX CIRC: Previously placed stent is patent with minimal luminal irregularities OM 2: Mid - Mild luminal irregularities RIGHT CORONARY ARTERY: Mild luminal irregularities PROX RCA: diffuse: eccentric: 25 % Stenosis MID RCA: eccentric: 25 - 50 % Stenosis DISTAL RCA: diffuse: eccentric: 10 - 25 % Stenosis RT PDA: Proximal - Mild luminal irregularities Cardiac catheterization: 06-18-2019 CONCLUSIONS [place] Multivessel CAD RECOMMENDATIONS Risk factor modification Medical therapy Case discussed / reviewed with Basim Garnica MD (Interventional Cardiology) CORONARY ANGIOGRAPHY DOMINANCE: Right Dominant LEFT HEART ASSESSMENT Left Ventricular Ejection Fraction: Not assessed LEFT MAIN: distal: eccentric: 25 % Stenosis LEFT ANTERIOR DESCENDING ARTERY: PROX LAD: Previously placed stent is patent with mild luminal irregularities, Previously placed stent has an instent proximal: 25 - 50 % restenosis MID LAD: Mild luminal irregularities DIAGONAL 1: Proximal - Previously placed stent is patent with mild luminal irregularities CIRCUMFLEX ARTERY: PROX CIRC: eccentric: 25 % Stenosis, Previously placed stent is patent with mild luminal irregularities OM 1: Proximal - 25 % Stenosis (small caliber vessel) OM 2: Mid - Mild luminal irregularities RIGHT CORONARY ARTERY: PROX RCA: diffuse: eccentic: 25 % Stenosis MID RCA: eccentric: 25 - 50 % Stenosis DISTAL RCA: diffuse: eccentric: 10 - 25 % Stenosis RT PDA: Proximal - Mild luminal irregularities CXR: No acute cardiopulmonary disease process appreciated: Please see official report Assessment/Plan 1. Angina pectoris The patient presents with chest discomfort, with exertional activity, that may be compatible with an element of underlying stable exertional angina pectoris. He has used nitroglycerin sublingual in the past with some relief. He has been on medical management. He is undergone previous noninvasive and invasive evaluation as noted. Based upon his most recent invasive evaluation he did not require additional catheter- based PCI/revascularization therapy. At the present time he will continue to have his cardiac enzymes followed as well as his ECG. He will be asked to have a follow-up pharmacologic stress nuclear imaging study to evaluate for any obvious areas of ongoing myocardial ischemia that warrant consideration for repeat evaluation in the cardiac catheterization laboratory. In the interim an attempt will be made to optimize his medical management. 2. Shortness of breath The patient does complain of shortness of breath more so with activity. This may be compatible with a combination of etiologies including his underlying cardiovascular condition. At the present time he will continue his noninvasive evaluation as noted above. An attempt was made to optimize his medical therapy for his underlying cardiovascular condition as best he tolerates. 3. CAD status post PCI The patient has undergone cardiac catheterization in December 2018 and May 2019. He did not require revascularization therapy following either cardiac catheterization. He will continue medical therapy as he is able. Plans will be made for a pharmacologic stress nuclear imaging study to evaluate for evidence of underlying myocardial ischemia. If this is considered concerning the abnormal then he may need to be considered for repeat diagnostic cardiac catheterization. However there is caution in proceeding in that manner based on his elevated creatinine level based upon concerns of a possible contrast related nephropathy. 4. Cardiomyopathy The patient does have a history of cardiomyopathy which is been thought in the past to be out of proportion to his history of CAD. He does not appear to have evidence of acute [id number] this time. He will continue medical management. 5. Paroxysmal ventricular tachycardia He does have a history of PVT. He will continue medical therapy. He does have an ICD in place. 6. ICD The patient does have an ICD in place. It has been followed. It has been working appropriately in the past. It can be reassessed as needed. 7. Hyperlipidemia The patient will continue lipid-lowering therapy as best as tolerated. 8. Hypertension Patient has a longstanding history of hypertension. However it is not uncommon to find the patient's blood pressure on the lower side. Today the patient had orthostatic blood pressures in his patient room. His systolic pressure did drop more than 20 mmHg thus raising concerns about his volume status. The patient despite his best efforts may need an additional increase in his volume status to assist with any positional changes that would bring out orthostasis and associated symptoms as he is described. 9. Diabetes mellitus He will continue evaluation care per internal medicine. 10. Renal insufficiency The patient does appear to have evidence of ongoing renal insufficiency. This does raise caution with respect to proceeding with IV contrast related procedures that could bring out IV contrast related nephropathy and worsening renal function, etc. Thus the patient will continue on noninvasive evaluation and medical therapy at this time. 11. Dehydration The patient did have orthostatic blood pressures performed. His systolic pressure did drop more than 20 mmHg. Thus he may have an element of dehydration. It may not be unreasonable to provide him with cautious IV fluids and follow his blood pressure response, renal function, and symptoms. 12. Hypothyroidism Patient will continue evaluation care per internal medicine as deemed appropriate. Comment: Above was discussed and reviewed with the patient, Dr. Guzman the [facility] emergency department staff, and Dr. Morel of the [facility] staff. This note was generated using a voice recognition system and there may be incorrect words, spelling or punctuation that were not noted when reviewing the office note prior to saving.
--- NOTE | 2019-11-02 14:01 | ECHOD_ITS ---
Reason For Study: CAD/ASHD Procedure This was a 2D Doppler, Color Flow transthoracic echocardiogram. The study was technically difficult. Exam performed portable in patient room. Left Ventricle Mildly dilated left ventricle. Mild concentric left ventricular hypertrophy. Apical false tendon noted. Severe segmental systolic dysfunction (see wall motion). The estimated ejection fraction is 20 %. Diastolic function is indeterminate. Infero-Basal: Hypokinetic. Basal inferoseptal: Akinetic. Mid-Anterior : Hypokinetic. Mid-Lateral : Hypokinetic. Mid-Posterior: Hypokinetic. Mid-Inferior: Akinetic. Mid-inferoseptal : Akinetic. Mid-anteroseptal : Hypokinetic. Anterior [place] : Akinetic. Inferior [place] : Hypokinetic. Lateral [place] : Akinetic. Septal [place] : Hypokinetic. Right Ventricle Normal RV size. ICD or pacer leads identified within the right ventricle. Normal systolic function. Atria The left atrium is mildly enlarged. Normal right atrium. ICD or pacer leads identified within the right atrium. No doppler evidence for ASD. Mitral Valve There is no mitral annular calcification. Mild diffuse mitral valve thickening. Mild papillary muscle dysfunction of the mitral valve. Trivial mitral valve insufficiency. Tricuspid Valve Normal tricuspid valve. Mild tricuspid valve insufficiency. Right ventricular systolic pressure estimated to be 30 mmHg. Aortic Valve Trisinus/trileaflet aortic valve. Mild focal aortic valve calcification. Mild-Moderate (1-2+) aortic valve insufficiency. Pulmonic Valve The pulmonic valve is not well visualized. Mild (1+) pulmonic valve insufficiency. Great Vessels The aortic root is not well visualized. Pericardium/Pleural No pericardial effusion. MMode/2D Measurements & Calculations LVIDd: 5.5 cm IVSd: 1.4 cm LA dimension: 3.5 cm LVIDs: 4.9 cm LVPWd: 1.4 cm FS: 11.6 % LAV(MOD-sp2): 51.0 ml Time Measurements MV dec time: 0.25 sec Doppler Measurements & Calculations MV E max saul: 47.0 cm/sec Lat Peak E' Saul: 5.0 cm/sec Med Peak E' Saul: 4.4 cm/sec MV A max saul: 93.5 cm/sec E/E' lat: 9.3 E/E' med: 10.7 MV E/A: 0.50 Ao V2 max: 130.0 cm/sec AI max saul: 394.7 cm/sec LV V1 max: 100.2 cm/sec Ao max P.8 mmHg AI max P.3 mmHg LV V1 max P.0 mmHg AI dec slope: 184.1 cm/sec2 AI P1/2t: 627.8 msec PA V2 max: 82.8 cm/sec TR max saul: 260.5 cm/sec TR max P.1 mmHg Interpretation Summary The study was technically difficult. Mildly dilated left ventricle. Severe segmental systolic dysfunction (see wall motion). The estimated ejection fraction is 20 %. Mild concentric left ventricular hypertrophy. Apical false tendon noted. The left atrium is mildly enlarged. Mild diffuse mitral valve thickening. Mild papillary muscle dysfunction of the mitral valve. Trivial mitral valve insufficiency. Mild tricuspid valve insufficiency. Mild focal aortic valve calcification. Mild-Moderate (1-2+) aortic valve insufficiency. Mild (1+) pulmonic valve insufficiency. Right ventricular systolic pressure estimated to be 30 mmHg. Diastolic function is indeterminate. ICD or pacer leads identified within the right atrium ICD or pacer leads identified within the right ventricle. Ordering Physician: Yefri Caceres Referring Physician: MD Edwin Miguel Performed By: Castillo Dalton RCS
[2019-11-02] MEDS: Aspirin 325 MG Tablet PO (19:51)
[2019-11-03] VITALS (10 sets, daily range): BP systolic 101–145; BP diastolic 54–73; PULSE 52–71; RESP 16–18; TEMP 36.3–36.7; O2SAT 94–97
[2019-11-03] MEDS: Levothyroxine 50 MCG Tablet PO (05:29)
[2019-11-03] MEDS: Clopidogrel Bisulfate 75 MG Tablet PO (05:29)
--- NOTE | 2019-11-03 05:55 | EKG12_ITS ---
Test Reason : AM EKG Blood Pressure : / mmHG Vent. Rate : 052 BPM Atrial Rate : 052 BPM P-R Int : 232 ms QRS Dur : 136 ms QT Int : 504 ms P-R-T Axes : 048 -21 136 degrees QTc Int : 468 ms Sinus bradycardia with 1st degree A-V block Non-specific intra-ventricular conduction block Abnormal ECG When compared with ECG of 02-NOV-2019 11:46, MANUAL COMPARISON REQUIRED, DATA IS UNCONFIRMED Confirmed by ADELA GALLARDO, CINDI ([id number]), editorial director ASCENCION MOORE ([id number]) on 11/08/2019 1:33:35 PM Referred By: DR PATTERSON Confirmed By:BENNIE CHAPMAN MD
[2019-11-03 06:38] LABS: Absolute Lymphocyte Count 0.96 X10^3/uL (0.83-4.51); Absolute Neutrophil Count 3.2 X10^3/uL (2.0-7.7); Basophil# 0.03 X10^3/uL; Basophil% 0.6 % (0-1); Eosinophil# 0.09 X10^3/uL; Eosinophils% 1.9 % (0-5); Hematocrit 36.2 % (40-54); Hemoglobin 11.5 g/dL (13.0-16.5); Lymphocyte # 0.96 X10^3/ul (4.0); Mean Corp Hgb Conc 31.8 g/dL (32-36); Mean Corpuscular Hgb 31.4 pg (27.0-32.0); Mean Corpuscular Volume 98.9 fL (80-94); Mean Platelet Vol. 9.1 fl (6.2-12.0); Monocyte# 0.52 X10^3/uL; Monocyte% 10.8 % (0-10); NRBC Flagged by Analyzer 0 % (0-5); Neutrophil # 3.18 X10^3/uL (2.7-7.7); Neutrophil % 66.3 % (47-70); Platelet Count 133 K/mm3 (150-450); RBC Distribution Width CV 14.1 % (11.6-14.6); RBC Distribution Width SD 51.7 fl (35.1-43.9); Red Blood Count 3.66 M/mm3 (4.6-6.2); White Blood Count 4.8 K/mm3 (4.4-11.0)
[2019-11-03 07:11] LABS: ALB/GLOB Ratio 0.9 RATIO (0.9-2.4); AST(SGOT) 30 U/L (15-37); Alanine Aminotransfer ALT/SGPT 25 U/L (16-61); Alkaline Phosphatase 85 U/L (45-117); Anion Gap 4 (5-15); BUN 26 mg/dL (7-18); BUN/Creat Ratio 12.1 RATIO (10-20); Calcium,Total 8.8 mg/dL (8.5-10.1); Chloride 109 mmol/L (98-107); Creatinine, Serum 2.14 mg/dL (0.70-1.30); EST Glomerular Filtration Rate 31 mL/min (>60); Est Glom Filt Rate - Afr Amer 38 mL/min (>60); Estimated Creatinine Clearance 27.37 ml/min; Globulin 3.5 g/dL (2.2-4.2); Glucose 80 mg/dL (74-106); Potassium 3.6 mmol/L (3.5-5.1); Protein, Total 6.5 g/dL (6.4-8.2); Sodium Level 142 mmol/L (136-145)
--- NOTE | 2019-11-03 08:45 | PN_ITS ---
Patient Problems: Active and Suspected Problems (Last Reviewed 09/23/19 @ 09:01 by Krystina Snyder) Exertional angina (Acute) S/P PTCA (percutaneous transluminal coronary angioplasty) (Acute) Reason for Visit: Follow-up for angina, chest pain Objective: At home, patient gets chest pressure and shortness of breath on exertion. Is also feeling dizzy, generalized weakness ongoing for 1 week and near fall situation mainly due to lower extremity weakness. Physical exam General: Alert, Oriented x3, Cooperative HEENT: Atraumatic, PERRLA, EOMI, Normocephalic Oral: No Gingival or Mucosal Lesions/ Ulcerations Neck: Supple, No JVD, Negative Carotid Bruits Lungs: Air entry diminished in bilateral lung bases. No crepitation/rhonchi Cardiovascular: Regular rate, Regular Rhythm, Normal S1, Normal S2, No murmurs. Left subclavicular AICD. Abdomen: Bowel Sounds Present, Soft, Non Tender, Non-Distended : No renal angle tenderness. No suprapubic tenderness. Extremities: No edema, Capillary Refill Less than 3 Seconds Skin: Bruise on bilateral upper extremity. Skin is thin in texture, probably skin atrophy on chronic prednisone therapy. Musculoskeletal: No Tenderness to Palpation of Joints or Extremities. Weakness on quadricep and thigh group of muscles. Neurological: Cranial nerves II-XII grossly intact, Deep Tendon Reflexes 2+/4 and Symmetrical, Neuro grossly intact Psych/Mental Status: Normal Affect, Appropriate. Vitals/I&O's: Vital Signs Temp Pulse Resp BP Pulse Ox 97.7 F L 57 L 16 134/69 H 96 11/03/19 06:50 11/03/19 07:00 11/03/19 06:50 11/03/19 06:50 11/03/19 06:50 Oxygen Delivery Method Room Air Weight: 182 lb 5.156 oz Body Mass Index (BMI) 25.4 Orthostatic Vital Signs Start: 11/02/19 11:31 Freq: q24h Status: Active Protocol: Activity Type Activity Date Activity User E-Sign Co-Sign Detail Recorded Client Recorded Date Recorded By Document 11/03/19 06:50 RENEE [id number] 11/03/19 06:52 RENEE 11/03/19 06:50 Orthostatic Vitals Standing -Blood Pressure (90/60-120/80) 101/54 L -Extremity Use Left Arm -Pulse Rate (60-100) 61 Sitting -Blood Pressure (90/60-120/80) 141/68 H -Extremity Use Left Arm -Pulse Rate (60-100) 55 L Lying -Blood Pressure (90/60-120/80) 134/69 H -Extremity Use Left Arm -Pulse Rate (60-100) 53 L Intake and Output for Last 24 Hours 11/01/19 11/02/19 11/03/19 23:59 23:59 23:59 Intake Total 1610 / 1610 Balance 1610 / 1610 Laboratory Results 11/02/19 08:45: WBC 5.8, RBC 3.99 L, Hgb 12.6 L, Hct 39.2 L, MCV 98.2 H, MCH 31.6, MCHC 32.1, RDW Std Deviation 51.8 H, RDW Coeff of [place] 14.2, Plt Count 153, MPV 9.3, Immature Gran % (Auto) 0.500, Neut % (Auto) 63.9, Lymph % (Auto) 21.2, [place] % (Auto) 11.6 H, Eos % (Auto) 2.3, Baso % (Auto) 0.5, Absolute Neuts (auto) 3.7, Absolute Lymphs (auto) 1.22, Nucleated RBC % 0 11/02/19 08:45: Sodium 141, Potassium 3.9, Chloride 104, Carbon Dioxide 32.0, Anion Gap 5, BUN 31 H, Creatinine 2.63 H, Estim Creat Clear Calc 22.27, Est GFR (MDRD) Af Amer 30 L, Est GFR (MDRD) Non-Af 25 L, BUN/Creatinine Ratio 11.8, Glucose 100, Calcium 9.2, Troponin I < 0.015 11/02/19 11:48: Troponin I 0.019 11/02/19 14:47: Troponin I < 0.015 11/03/19 06:20: WBC 4.8, RBC 3.66 L, Hgb 11.5 L, Hct 36.2 L, MCV 98.9 H, MCH 31.4, MCHC 31.8 L, RDW Std Deviation 51.7 H, RDW Coeff of [place] 14.1, Plt Count 133 L, MPV 9.1, Immature Gran % (Auto) 0.400, Neut % (Auto) 66.3, Lymph % (Auto) 20.0, [place] % (Auto) 10.8 H, Eos % (Auto) 1.9, Baso % (Auto) 0.6, Absolute Neuts (auto) 3.2, Absolute Lymphs (auto) 0.96, Nucleated RBC % 0 11/03/19 06:20: Sodium 142, Potassium 3.6, Chloride 109 H, Carbon Dioxide 29.0, Anion Gap 4 L, BUN 26 H, Creatinine 2.14 H, Estim Creat Clear Calc 27.37, Est GFR (MDRD) Af Amer 38 L, Est GFR (MDRD) Non-Af 31 L, BUN/Creatinine Ratio 12.1, Glucose 80, Calcium 8.8, Total Bilirubin 1.20 H, AST 30, ALT 25, Alkaline Phosphatase 85, Total Protein 6.5, Albumin 3.0 L, Globulin 3.5, Albumin/Globulin Ratio 0.9 Current Medications Acetaminophen (Tylenol) 650 mg PO Q6H PRN PRN PRN Reason: Pain Score 1-10/Temp > 100.7 F Albuterol Sulfate (Ventolin Aerosols) 2.5 mg INHALATION Q4H PRN PRN PRN Reason: SOB &/OR WHEEZING Amiodarone HCl (Cordarone) 200 mg PO BID [facility] Last Admin: 11/02/19 21:22 Dose: 200 mg Documented by: Aspirin (Aspirin) 325 mg PO DAILY@1999 [facility] Last Admin: 11/02/19 19:51 Dose: 325 mg Documented by: Carvedilol (Coreg) 6.25 mg PO BID [facility] Last Admin: 11/02/19 21:22 Dose: 6.25 mg Documented by: Cholecalciferol (Vitamin D (25mcg)) 1,000 unit PO DAILY [facility] Clopidogrel Bisulfate (Plavix) 75 mg PO DAILY [facility] Last Admin: 11/03/19 05:29 Dose: 75 mg Documented by: Colchicine (Colchicine) 0.6 mg PO DAILY [facility] Last Admin: 11/02/19 13:37 Dose: 0.6 mg Documented by: Enoxaparin Sodium (Lovenox) 30 mg SC DAILY [facility] Last Admin: 11/02/19 12:32 Dose: 30 mg Documented by: Finasteride (Proscar) 5 mg PO DAILY [facility] Last Admin: 11/02/19 12:32 Dose: 5 mg Documented by: Hydroxychloroquine Sulfate (Plaquenil) 200 mg PO DAILY [facility] Last Admin: 11/02/19 13:34 Dose: 200 mg Documented by: Sodium Chloride () 250 mls @ 15 mls/hr IV .[id number] PRN PRN Reason: Saline Flush Sodium Chloride () 250 mls @ 15 mls/hr IV .[id number] PRN PRN Reason: Additional IVPB Infusion Isosorbide Mononitrate (Imdur) 60 mg PO DAILY [facility] Levothyroxine Sodium (Synthroid) 50 mcg PO DAILY@0600 [facility] Last Admin: 11/03/19 05:29 Dose: 50 mcg Documented by: Morphine Sulfate () 2 mg IV Q3H PRN PRN PRN Reason: Pain Score 6-10/10 Nitroglycerin (Nitrostat) 0.4 mg SUBLINGUAL Q5M PRN PRN Reason: CARDIAC/CHEST PAIN Ondansetron HCl (Zofran) 4 mg IV Q8H PRN PRN PRN Reason: NAUSEA/VOMITING Oxycodone HCl (Oxyir) 5 mg PO Q6H PRN PRN PRN Reason: Pain Score 4-5/10 Pravastatin Sodium (Pravachol) 20 mg PO DAILY [facility] Last Admin: 11/02/19 13:34 Dose: 20 mg Documented by: Prednisone () 5 mg PO DAILY@0800 [facility] Last Admin: 11/02/19 13:35 Dose: 5 mg Documented by: Sodium Chloride () 10 - 40 ml IV UD PRN PRN Reason: SALINE FLUSH Last Admin: 11/02/19 12:37 Dose: 10 ml Documented by: Tamsulosin HCl (Flomax) 0.4 mg PO DAILY [facility] Last Admin: 11/02/19 13:34 Dose: 0.4 mg Documented by: STROKE Vital Signs/Narrative: Vital Signs Temp Pulse Pulse Pulse Pulse Resp BP 11/03/19 07:00 57 L 11/03/19 06:50 97.7 F L 53 L 53 L 55 L 61 16 134/69 H BP BP BP Pulse Ox 11/03/19 07:00 11/03/19 06:50 134/69 H 141/68 H 101/54 L 96 Medical Necessity - Tobacco Use Smoking Status: Former smoker Assessment/Plan All Active Problems (Last Reviewed 09/23/19 @ 09:01 by Krystina Snyder) Exertional angina (Acute) S/P PTCA (percutaneous transluminal coronary angioplasty) (Acute) Dysrhythmia, cardiac (Acute) Chest pain (Acute) Angina pectoris (Acute) Near syncope (Resolved) History of left heart catheterization (LHC) (Resolved ~06/18/19) Acute on chronic combined systolic and diastolic heart failure (Resolved) Chest pain (Resolved) Fatigue (Resolved) Hypoxia (Resolved) Myalgia (Resolved) This 84 gentleman with history of coronary artery status post LAD stent, ischemic cardiomyopathy and other multiple comorbidities admitted with dizziness and weakness ongoing for 1 week along with chest pressure and shortness of breath on exertion, consistent with angina 1. Near syncope dizziness, generalized weakness secondary to orthostatic hypotension: Blood pressure is better and improved 144/73. Discontinue IV fluid. 2. Angina pectoris with history of coronary artery disease, LAD stent and diffuse coronary artery disease: On medical management. On aspirin, clopidogrel, statin, carvedilol. Patient Imdur dose increased to 60 mg daily. Discussed with elevator operator. Stress test reported no myocardial perfusion changes diagnostic for stress-induced myocardial ischemia. EF 33%. Echo on 11/02/2019: Mildly dilated left ventricle. Severe segmental systolic dysfunction (see wall motion). The estimated ejection fraction is 20 %. Mild concentric left ventricular hypertrophy. Apical false tendon noted. The left atrium is mildly enlarged. Mild diffuse mitral valve thickening. Mild papillary muscle dysfunction of the mitral valve. Trivial mitral valve insufficiency. Mild tricuspid valve insufficiency. Mild focal aortic valve calcification. Mild-Moderate (1-2+) aortic valve insufficiency. Mild (1+) pulmonic valve insufficiency. Right ventricular systolic pressure estimated to be 30 mmHg. Diastolic function is indeterminate. 3. History of paroxysmal V. tach, in normal sinus rhythm, continue amiodarone 4. Hypothyroidism, continue levothyroxine 5. Chronic arthritis, unclear if this is rheumatoid arthritis Patient is on Plaquenil and prednisone, stable, will continue same PT and OT. 6. BPH, continue finasteride and Flomax 7. DVT ppx- Lovenox, renally dosed 8. CODE STATUS - DNR CCA no intubation Total time of the visit including total time spent in counseling or coordination of care, (more than 50% of the total time, spent in obtaining medical information from nurses and other ancillary care providers), discussion with dynamics ax consultant, review of labs and imaging is 30 minutes. Inpatient E&M: 26101 Subs Hosp L3
--- NOTE | 2019-11-03 11:19 | CASEMGMT ---
Addendum entered by Akosua Miller 11/03/19 12:30: This RN CM to room with FERNANDEZ form at this time, explanation done-pt voices understanding, and signs FERNANDEZ form at this time. Original to chart and copy to pt at this time. Pt voices no further questions/concerns/needs at this time. Karen MORAN CM Original Note: This RN CM to room with FERNANDEZ form at this time and pt is out of the dept for testing at this time. Will attempt again later. Karen MORAN CM
--- NOTE | 2019-11-03 11:53 | STRESSREP_ITS ---
Stress Test Report Date: 11-03-2019 Procedure: Pharmacologic stress nuclear imaging study Indications: Chest pains; shortness of breath/dyspnea; CAD; PCI; cardiomyopathy; ICD Consent: Per the patient Procedure: The patient underwent pharmacologic (Regadenoson) evaluation with a peak heart rate of 61 beats per minute (44 %predicted maximal heart rate) and a peak blood pressure of 142/78 mmHg. The baseline ECG demonstrated sinus bradycardia; incomplete left bundle branch block pattern; nonspecific ST/T wave abnormality. The peak pharmacologic ECG de monstrated no obvious ECG changes. There were no cardiac dysrhythmias pretest, during pharmacologic infusion, or recovery. There was no complaint of chest discomfort during pharmacologic infusion or recovery. The examination was discontinued secondary to completion of protocol. Impression: 1. Pharmacologic (Regadenoson) evaluation 2. Peak pharmacologic ECG with no obvious ECG changes. 3. There were no cardiac dysrhythmias pretest, during pharmacologic infusion, or recovery. 4. Nuclear images pending Myocardial perfusion imaging study: Technique: The patient was injected with 11.6 millicuries of technetium 99m Cardiolite and subsequently rest SPECT Cardiolite nuclear imaging was obtained in the horizontal long, vertical long, and short axis views. The patient underwent pharmacologic (Regadenoson) evaluation with a peak heart rate of 61 beats per minute (44 % percent predicted maximal heart rate) and a peak blood pressure of 142/78 mmHg. The patient was injected with 34.1 millicuries of technetium 99m Cardiolite and subsequently stress SPECT Cardiolite nuclear imaging was obtained in the horizontal long, vertical long, and short axis views. A gated Cardiolite study at peak stress was obtained. Interpretation: Rest and stress SPECT Cardiolite nuclear imaging status post realignment, normalization, and attenuation correction demonstrate the appearance of diminished myocardial perfusion/tracer uptake in the apical segments without significant change between rest and stress. There is also congestion of left ventricular dilatation pre-and post stress. There is diminished end systolic thickening and brightening. The gated Cardiolite study demonstrates diminished myocardial thickening and inward wall motion. The reported LVEF is 33 %. Impression: 1. Rest and stress SPECT current nuclear imaging demonstrate myocardial perfusion changes compatible with the effects of physiologic apical thinning with no myocardial perfusion changes consider diagnostic for associated stress- induced myocardial ischemia, as well as, demonstrating findings compatible with left ventricular dilatation. 2. The gated Cardiolite study reports an LVEF of 33 %. This note was generated with [employer] software. It may contain incorrect words, spelling, and punctuation that were not noted in checking the note before signing.
[2019-11-03] MEDS: Hydroxychloroquine 200 MG Tablet PO (11:57)
[2019-11-03] MEDS: Pravastatin 20 MG Tablet PO (11:57)
[2019-11-03] MEDS: Tamsulosin HCl 0.4 MG Capsule PO (11:57)
[2019-11-03] MEDS: Amiodarone 200 MG Tablet PO ×2 (11:57→22:03)
[2019-11-03] MEDS: predniSONE 10 MG Tablet 5 MG PO (11:57)
[2019-11-03] MEDS: Finasteride 5 MG Tablet PO (11:57)
[2019-11-03] MEDS: Isosorbide Mononitrate 60 MG Tablet PO (11:57)
[2019-11-03] MEDS: Carvedilol 12.5 MG Tablet 6.25 MG PO ×2 (11:58→22:03)
--- NOTE | 2019-11-03 12:57 | PCM.PN.CARD ---
Subjectve: The patient has been awake and alert. He has undergone further evaluation with a pharmacologic stress nuclear imaging study. His study did not demonstrate findings compatible with myocardial ischemia but did demonstrate findings compatible with left ventricular dilatation and an underlying cardiomyopathy. Objective: Vital Signs Temp Pulse Resp BP Pulse Ox 97.7 F L 60 18 144/73 H 97 11/03/19 11:50 11/03/19 11:50 11/03/19 11:50 11/03/19 11:50 11/03/19 11:50 Oxygen Delivery Method Room Air Weight: 182 lb 5.156 oz Body Mass Index (BMI) 25.4 Orthostatic Vital Signs Start: 11/02/19 11:31 Freq: q24h Status: Active Protocol: Activity Type Activity Date Activity User E-Sign Co-Sign Detail Recorded Client Recorded Date Recorded By Document 11/03/19 06:50 RENEE [id number] 11/03/19 06:52 RENEE 11/03/19 06:50 Orthostatic Vitals Standing -Blood Pressure (90/60-120/80) 101/54 L -Extremity Use Left Arm -Pulse Rate (60-100) 61 Sitting -Blood Pressure (90/60-120/80) 141/68 H -Extremity Use Left Arm -Pulse Rate (60-100) 55 L Lying -Blood Pressure (90/60-120/80) 134/69 H -Extremity Use Left Arm -Pulse Rate (60-100) 53 L Intake and Output for Last 24 Hours 11/01/19 11/02/19 11/03/19 23:59 23:59 23:59 Intake Total 1610 / 1610 1150 / 1150 Balance 1610 / 1610 1150 / 1150 General: Awake, Alert, Oriented x 3, Cooperative, No Acute Distress HEENT: Atraumatic, Normocephalic, PERRL, EOMI, Sclera Non Icteric Neck: Supple, Good ROM, No JVD Lungs: Clear to auscultation Cardiovascular: Regular Rhythm, Normal S1, Normal S2 Abdomen: Bowel Sounds Present, Soft Extremities: No edema Psych/Mental Status: Appropriate 11/02/19 14:47: Troponin I < 0.015 11/03/19 06:20: WBC 4.8, RBC 3.66 L, Hgb 11.5 L, Hct 36.2 L, MCV 98.9 H, MCH 31.4, MCHC 31.8 L, Plt Count 133 L, MPV 9.1, Immature Gran % (Auto) 0.400, Neut % (Auto) 66.3, Lymph % (Auto) 20.0, [place] % (Auto) 10.8 H, Eos % (Auto) 1.9, Baso % (Auto) 0.6, Absolute Neuts (auto) 3.2, Nucleated RBC % 0 11/03/19 06:20: Sodium 142, Potassium 3.6, Chloride 109 H, Carbon Dioxide 29.0, Anion Gap 4 L, BUN 26 H, Creatinine 2.14 H, Est GFR (MDRD) Af Amer 38 L, Est GFR (MDRD) Non-Af 31 L, BUN/Creatinine Ratio 12.1, Glucose 80, Calcium 8.8, Total Bilirubin 1.20 H Rhythm: Sinus rhythm; PVCs ECHO: Interpretation Summary The study was technically difficult. Mildly dilated left ventricle. Severe segmental systolic dysfunction (see wall motion). The estimated ejection fraction is 20 %. Mild concentric left ventricular hypertrophy. Apical false tendon noted. The left atrium is mildly enlarged. Mild diffuse mitral valve thickening. Mild papillary muscle dysfunction of the mitral valve. Trivial mitral valve insufficiency. Mild tricuspid valve insufficiency. Mild focal aortic valve calcification. Mild-Moderate (1-2+) aortic valve insufficiency. Mild (1+) pulmonic valve insufficiency. Right ventricular systolic pressure estimated to be 30 mmHg. Diastolic function is indeterminate. ICD or pacer leads identified within the right atrium ICD or pacer leads identified within the right ventricle. Stress Test: Stress Test Report Date: 11-03-2019 Procedure: Pharmacologic stress nuclear imaging study Indications: Chest pains; shortness of breath/dyspnea; CAD; PCI; cardiomyopathy; ICD Consent: Per the patient Procedure: The patient underwent pharmacologic (Regadenoson) evaluation with a peak heart rate of 61 beats per minute (44 %predicted maximal heart rate) and a peak blood pressure of 142/78 mmHg. The baseline ECG demonstrated sinus bradycardia; incomplete left bundle branch block pattern; nonspecific ST/T wave abnormality. The peak pharmacologic ECG demonstrated no obvious ECG changes. There were no cardiac dysrhythmias pretest, during pharmacologic infusion, or recovery. There was no complaint of chest discomfort during pharmacologic infusion or recovery. The examination was discontinued secondary to completion of protocol. Impression: 1. Pharmacologic (Regadenoson) evaluation 2. Peak pharmacologic ECG with no obvious ECG changes. 3. There were no cardiac dysrhythmias pretest, during pharmacologic infusion, or recovery. 4. Nuclear images pending Myocardial perfusion imaging study: Technique: The patient was injected with 11.6 millicuries of technetium 99m Cardiolite and subsequently rest SPECT Cardiolite nuclear imaging was obtained in the horizontal long, vertical long, and short axis views. The patient underwent pharmacologic (Regadenoson) evaluation with a peak heart rate of 61 beats per minute (44 % percent predicted maximal heart rate) and a peak blood pressure of 142/78 mmHg. The patient was injected with 34.1 millicuries of technetium 99m Cardiolite and subsequently stress SPECT Cardiolite nuclear imaging was obtained in the horizontal long, vertical long, and short axis views. A gated Cardiolite study at peak stress was obtained. Interpretation: Rest and stress SPECT Cardiolite nuclear imaging status post realignment, normalization, and attenuation correction demonstrate the appearance of diminished myocardial perfusion/tracer uptake in the apical segments without significant change between rest and stress. There is also congestion of left ventricular dilatation pre-and post stress. There is diminished end systolic thickening and brightening. The gated Cardiolite study demonstrates diminished myocardial thickening and inward wall motion. The reported LVEF is 33 %. Impression: 1. Rest and stress SPECT current nuclear imaging demonstrate myocardial perfusion changes compatible with the effects of physiologic apical thinning with no myocardial perfusion changes considered diagnostic for associated stress-induced myocardial ischemia, as well as, demonstrating findings compatible with left ventricular dilatation. 2. The gated Cardiolite study reports an LVEF of 33 %. Medical Necessity - Tobacco Use Smoking Status: Former smoker Assessment/Plan 1. Angina pectoris The patient presents with chest discomfort, with exertional activity, that may be compatible with an element of underlying stable exertional angina pectoris. He has used nitroglycerin sublingual in the past with some relief. He has been on medical management. He is undergone previous noninvasive and invasive evaluation as noted. Based upon his most recent invasive evaluation he did not require additional catheter-based PCI/revascularization therapy. His pharmacologic stress nuclear imaging study does not appear to demonstrate evidence of stress-induced myocardial ischemia. Thus he will continue medical therapy which has included an increase in his nitrate therapy. There are no immediate plans for additional evaluation with diagnostic cardiac catheterization. 2. Shortness of breath The patient does complain of shortness of breath more so with activity. This may be compatible with a combination of etiologies including his underlying cardiovascular condition. His noninvasive study has been reviewed. His LV systolic function remains depressed. This certainly can be a contributing factor for his shortness of breath and dyspnea. An attempt was made to optimize his medical therapy for his underlying cardiovascular condition as best he tolerates. 3. CAD status post PCI The patient has undergone cardiac catheterization in December 2018 and May 2019. He did not require revascularization therapy following either cardiac catheterization. He will continue medical therapy as he is able. 4. Cardiomyopathy The patient does have a history of cardiomyopathy which is been thought in the past to be out of proportion to his history of CAD. He does not appear to have evidence of acute [id number] this time. He will continue medical management. 5. Paroxysmal ventricular tachycardia He does have a history of PVT. He will continue medical therapy. He does have an ICD in place. 6. ICD The patient does have an ICD in place. It has been followed. It has been working appropriately in the past. It can be reassessed as needed. 7. Hyperlipidemia The patient will continue lipid-lowering therapy as best as tolerated. 8. Hypertension Patient has a longstanding history of hypertension. However it is not uncommon to find the patient's blood pressure on the lower side. 9. Diabetes mellitus He will continue evaluation care per internal medicine. 10. Renal insufficiency The patient does appear to have evidence of ongoing renal insufficiency. He has undergone additional therapy with IV fluids. His creatinine level has improved somewhat. Thus there may have been a component of dehydration contributing to some of his symptoms. 11. Dehydration Again his creatinine level appears to be somewhat improved status post gentle IV fluids. 12. Hypothyroidism The patient will continue evaluation care per internal medicine as deemed appropriate. Overall, at the present time, the patient will continue conservative medical management. There are no immediate plans for additional invasive evaluation or care at this time. This note was generated using a voice recognition system and there may be incorrect words, spelling or punctuation that were not noted when reviewing the office note prior to saving.
[2019-11-03] MEDS: Aspirin 325 MG Tablet PO (19:42)
[2019-11-04 02:59] VITALS: PULSE 55
[2019-11-04 04:00] VITALS: BP 108/52; BP 115/46; BP 117/70; PULSE 62; PULSE 63; PULSE 66; RESP 18; TEMP 36.7; O2SAT 96
[2019-11-04 05:46] LABS: Anion Gap 4 (5-15); BUN 22 mg/dL (7-18); BUN/Creat Ratio 10.6 RATIO (10-20); Calcium,Total 9.1 mg/dL (8.5-10.1); Chloride 111 mmol/L (98-107); Cholesterol 122 mg/dL (200); Creatinine, Serum 2.07 mg/dL (0.70-1.30); EST Glomerular Filtration Rate 33 mL/min (>60); Est Glom Filt Rate - Afr Amer 40 mL/min (>60); Estimated Creatinine Clearance 28.29 ml/min; Glucose 77 mg/dL (74-106); High Density Lipoprotein 39 mg/dL; Potassium 3.7 mmol/L (3.5-5.1); Sodium Level 142 mmol/L (136-145); Triglycerides 109 mg/dL; Very Low Density Lipoprotein 22 mg/dL (5-40)
[2019-11-04] MEDS: Levothyroxine 50 MCG Tablet PO (05:47)
[2019-11-04 07:00] VITALS: PULSE 56
[2019-11-04 08:24] VITALS: BP 127/62; PULSE 56; RESP 18; TEMP 36.3; O2SAT 95
[2019-11-04 08:45] VITALS: PULSE 56
[2019-11-04] MEDS: predniSONE 10 MG Tablet 5 MG PO (08:45)
[2019-11-04] MEDS: 0.9% Saline Lock 10 ML Syringe IV (08:46)
--- NOTE | 2019-11-04 09:00 | PCM.PN.CARD ---
Subjectve: The patient states he was feeling better yesterday afternoon. He notes this morning he felt a little different but states that the way he feels when he does not use his CPAP device which she has not used since being here in the hospital. After being up and moving he states he felt better. Objective: Vital Signs Temp Pulse Resp BP Pulse Ox 97.3 F L 56 L 18 127/62 H 95 11/04/19 08:24 11/04/19 08:24 11/04/19 08:24 11/04/19 08:24 11/04/19 08:24 Oxygen Delivery Method Room Air Weight: 182 lb 5.156 oz Body Mass Index (BMI) 25.4 Orthostatic Vital Signs Start: 11/02/19 11:31 Freq: q24h Status: Active Protocol: Activity Type Activity Date Activity User E-Sign Co-Sign Detail Recorded Client Recorded Date Recorded By Document 11/04/19 04:00 MAB [id number] 11/04/19 04:51 MAB 11/04/19 04:00 Orthostatic Vitals Standing -Blood Pressure (90/60-120/80 mm Hg) 108/52 L -Extremity Use Left Arm -Pulse Rate (60-100 beats/min) 66 Sitting -Blood Pressure (90/60-120/80 mm Hg) 117/70 -Extremity Use Left Arm -Pulse Rate (60-100 beats/min) 63 Lying -Blood Pressure (90/60-120/80 mm Hg) 115/46 L -Extremity Use Left Arm -Pulse Rate (60-100 beats/min) 62 Intake and Output for Last 24 Hours 11/02/19 11/03/19 11/04/19 23:59 23:59 23:59 Intake Total 1610 / 1610 1750 / 1750 100 / 100 Balance 1610 / 1610 1750 / 1750 100 / 100 General: Awake, Alert, Oriented x 3, Cooperative, No Acute Distress HEENT: Atraumatic, Normocephalic, PERRL, EOMI, Sclera Non Icteric Neck: Supple, Good ROM, No JVD Lungs: Clear to auscultation Cardiovascular: Regular Rhythm, Premature Ectopic Beats, Normal S1, Normal S2 Abdomen: Bowel Sounds Present, Soft Extremities: No edema Psych/Mental Status: Appropriate 11/04/19 04:50: Sodium 142, Potassium 3.7, Chloride 111 H, Carbon Dioxide 27.0, Anion Gap 4 L, BUN 22 H, Creatinine 2.07 H, Est GFR (MDRD) Af Amer 40 L, Est GFR (MDRD) Non-Af 33 L, BUN/Creatinine Ratio 10.6, Glucose 77, Calcium 9.1, Triglycerides 109, Cholesterol 122, LDL Cholesterol 61, VLDL Cholesterol 22, HDL Cholesterol 39 L Rhythm: Sinus rhythm/sinus bradycardia: PVCs Medical Necessity - Tobacco Use Smoking Status: Former smoker Assessment/Plan 1. Angina pectoris The patient presents with chest discomfort, with exertional activity, that may be compatible with an element of underlying stable exertional angina pectoris. He has used nitroglycerin sublingual in the past with some relief. He has been on medical management. His pharmacologic stress nuclear imaging study does not appear to demonstrate evidence of stress-induced myocardial ischemia. Thus he will continue medical therapy which has included an increase in his nitrate therapy. There are no immediate plans for additional evaluation with diagnostic cardiac catheterization. 2. Shortness of breath The patient does complain of shortness of breath more so with activity. This may be compatible with a combination of etiologies including his underlying cardiovascular condition. His noninvasive study has been reviewed. His LV systolic function remains depressed. This certainly can be a contributing factor for his shortness of breath and dyspnea. An attempt was made to optimize his medical therapy for his underlying cardiovascular condition as best he tolerates. 3. CAD status post PCI The patient has undergone cardiac catheterization in December 2018 and May 2019. He did not require revascularization therapy following either cardiac catheterization. He will continue medical therapy as he is able. 4. Cardiomyopathy The patient does have a history of cardiomyopathy which is been thought in the past to be out of proportion to his history of CAD. He does not appear to have evidence of acute [id number] this time. He will continue medical management. 5. Paroxysmal ventricular tachycardia He does have a history of PVT. He will continue medical therapy. He does have an ICD in place. 6. ICD The patient does have an ICD in place. It has been followed. It has been working appropriately in the past. It can be reassessed as needed. 7. Hyperlipidemia The patient will continue lipid-lowering therapy as best as tolerated. 8. Hypertension Patient has a longstanding history of hypertension. However it is not uncommon to find the patient's blood pressure on the lower side. 9. Diabetes mellitus He will continue evaluation care per internal medicine. 10. Renal insufficiency The patient does appear to have evidence of ongoing renal insufficiency. He has undergone additional therapy with IV fluids. His creatinine level has improved somewhat. Thus there may have been a component of dehydration contributing to some of his symptoms. 11. Dehydration Again his creatinine level appears to be somewhat improved status post gentle IV fluids. He will need to maintain adequate fluid balance. Based upon his cardiovascular condition he will need to reinitiate diuretic therapy to avoid volume overload. This can be done in a lower dose with adjustment depending upon his clinical course. 12. Hypothyroidism The patient will continue evaluation care per internal medicine as deemed appropriate. Overall, at the present time, the patient will continue conservative medical management. This will include, based upon a variety of symptoms, vital signs, and objective findings, a decrease in his beta-teetee dose, a decrease in his diuretic dose, and an increase in his nitrate dose. There are no immediate plans for additional invasive evaluation or care at this time. A long discussion was held with him with respect to his underlying cardiovascular condition and symptoms he may experience with respect to concerns of his dizziness, shortness of breath, fatigue, etc. Hopefully if he does well he will be able to be released home for continued outpatient follow-up. This note was generated using a voice recognition system and there may be incorrect words, spelling or punctuation that were not noted when reviewing the office note prior to saving.
--- NOTE | 2019-11-04 09:51 | DCINST_ITS ---
- Discharge Diagnoses Current Active Problems: Current Active and Chronic Problems (Last Reviewed 09/23/19 @ 09:01 by Krystina Snyder) Exertional angina (Acute) S/P PTCA (percutaneous transluminal coronary angioplasty) (Acute) You will use the following diet at home:: Cardiac, Fluid restricted (specify 2000 mls, 1500 mls) - 1800 ml Your food should be the consistency of: Regular Discharge Activity: May Not Drive Call your doctor if you observe: Fever of 101 or Higher, Numbness or Tingling, Inability to urinate, Shortness of breath, Dizziness, Fainting spells, Swelling in the ankles, Chest pain, Prolonged hiccoughing, Increased palpitations (irregular heartbeat), Calf discomfort, Uncontrolled pain Allergies/Adverse Reactions: Allergies atorvastatin [From Lipitor] Adverse Reaction (Verified 11/02/19 08:15) myalgia leflunomide [From Arava] Adverse Reaction (Verified 11/02/19 08:15) PROBLEMS WITH MY FEET simvastatin [From Zocor] Adverse Reaction (Verified 11/02/19 08:15) myalgia Medications to take at Discharge Aspirin 325 mg PO DAILY@199905/22/16 Colchicine 0.6 mg PO DAILY 05/22/16 Finasteride [Proscar] 5 mg PO DAILY 05/22/16 Levothyroxine [Synthroid] 50 mcg PO DAILY 05/22/16 Tamsulosin HCl [Flomax] 0.4 mg PO DAILY 05/22/16 nitroglycerin 0.4 mg sublingual tablet 0.4 mg SUBLINGUAL Q5-15M PRN #25 tab 11/16/18 Prednisone 5 mg PO DAILY #0 02/10/19 Pravastatin Sodium 20 mg PO DAILY 03/25/19 albuterol sulfate 2.5 mg INHALATION Q4H PRN 04/13/19 clopidogrel 75 mg tablet 75 mg PO DAILY #90 tab 04/19/19 Hydroxychloroquine [Plaquenil] 200 mg PO DAILY 05/29/19 Cholecalciferol (Vitamin D3) [Vitamin D3] 25 mcg PO DAILY 06/17/19 amiodarone 200 mg tablet 200 mg PO BID tab 08/02/19 tramadol 50 mg tablet ea PO 08/02/19 Carvedilol [Coreg (Beta Karri)] 3.125 mg PO BID #60 tab 11/04/19 Furosemide 20 mg PO DAILY #0 11/04/19 Isosorbide Mononitrate [Isosorbide Mononitrate ER] 60 mg PO DAILY #90 tab 11/04/19 The following prescriptions were given: Carvedilol [Coreg (Beta Karri)] 3.125 mg PO BID #60 tab Transmission Status: Pending to [facility] Isosorbide Mononitrate [Isosorbide Mononitrate ER] 60 mg PO DAILY #90 tab Transmission Status: Pending to [facility] Primary Care Physician: Miguel Pineda MD [Primary Care Provider] - Please follow up with your Primary Care Physician in: in 2 weeks Test Results: Test results from this visit will be discussed in further detail at your follow- up appointment, if applicable. Please Follow Up With: Yefri Caceres MD When: in 4 weeks
--- NOTE | 2019-11-04 09:53 | DS.PCM_ITS ---
Discharge Date and Diagnosis Date of Admission: 11/02/19 Date of Discharge: 11/04/19 - Primary Discharge Diagnosis Acute Problems: Active Problems (Last Reviewed 09/23/19 @ 09:01 by Krystina Snyder) Exertional angina (Acute) S/P PTCA (percutaneous transluminal coronary angioplasty) (Acute) - Secondary Discharge Diagnosis Chronic Problems: Chronic Problems (Last Reviewed 09/23/19 @ 09:01 by Krystina Snyder) CAD (coronary artery disease) (Chronic) 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) History of appendectomy (Chronic) Presence of coronary angioplasty implant and graft (Chronic ~09/23/06) PTCA and stenting of the LAD and diagonal 09/23/2006 Abnormal echocardiogram (Chronic) Mixed hyperlipidemia (Chronic) Atherosclerotic heart disease of [place] coronary artery without angina pectoris (Chronic) PTCA and stenting of the LAD and diagonal 09/23/2006 Essential hypertension (Chronic) Mixed sleep apnea (Chronic) BiPAP 17/11 mm of water with a backup rate of 12 Hypersomnolence disorder (Chronic) Dilated cardiomyopathy (Chronic) 15% EF Paroxysmal ventricular tachycardia (Chronic) Abnormal result of cardiovascular function study, unspecified (Chronic) 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) Implant: 06/2000; Generator change: 03/17/2008 Hypothyroidism, iatrogenic (Chronic) 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 Near syncope dizziness, generalized weakness secondary to orthostatic hypotension: BP normotensive 123/65. Was treated with IV fluid but discontinued later on. 2. Angina pectoris with history of coronary artery disease, LAD stent and diffuse coronary artery disease: On medical management. On aspirin, clopidogrel, statin, carvedilol. Patient Imdur dose increased to 60 mg daily. His medications were optimized, carvedilol dose decreased to 3.125 mg twice daily and Lasix decreased to 20 mg daily. Discussed with potato chip maker. Stress test reported no myocardial perfusion changes diagnostic for stress-induced myocardial ischemia. EF 33%. Echo on 11/02/2019: Mildly dilated left ventricle. Severe segmental systolic dysfunction (see wall motion). The estimated ejection fraction is 20 %. Mild concentric left ventricular hypertrophy. Apical false tendon noted. The left atrium is mildly enlarged. Mild diffuse mitral valve thickening. Mild papillary muscle dysfunction of the mitral valve. Trivial mitral valve insufficiency. Mild tricuspid valve insufficiency. Mild focal aortic valve calcification. Mild-Moderate (1-2+) aortic valve insufficiency. Mild (1+) pulmonic valve insufficiency. Right ventricular systolic pressure estimated to be 30 mmHg. Diastolic function is indeterminate. 3. History of paroxysmal V. tach, in normal sinus rhythm, continue amiodarone 4. Hypothyroidism, continue levothyroxine 5. Chronic arthritis, unclear if this is rheumatoid arthritis Patient is on Plaquenil and prednisone, stable, will continue same PT and OT. 6. BPH, continue finasteride and Flomax 7. DVT ppx- Lovenox, renally dosed 8. CODE STATUS - DNR CCA no intubation Discharge medication reconciliation done. Discharge follow-up instructions completed. Discharge process discussed with the patient and all questions were answered to patient's satisfaction. Total time spent, exact 35 minutes on discharge meds reconciliation, examination, discussion with national sales consultant, potato chip maker, coordination of care with nurses and ancillary staff, review of imaging and blood test and discussion with the patient on follow-up instructions Objective: Patient does not have shortness of breath or chest pain. Denies dizziness on walking. Wants to go home. Physical exam General: Alert, Oriented x3, Cooperative HEENT: Atraumatic, PERRLA, EOMI, Normocephalic Oral: No Gingival or Mucosal Lesions/ Ulcerations Neck: Supple, No JVD, Negative Carotid Bruits Lungs: Air entry diminished in bilateral lung bases. No crepitation/rhonchi Cardiovascular: Regular rate, Regular Rhythm, Normal S1, Normal S2, No murmurs. Left subclavicular AICD. Abdomen: Bowel Sounds Present, Soft, Non Tender, Non-Distended : No renal angle tenderness. No suprapubic tenderness. Extremities: No edema, Capillary Refill Less than 3 Seconds Skin: Bruise on bilateral upper extremity. Skin is thin in texture, probably skin atrophy on chronic prednisone therapy. Musculoskeletal: No Tenderness to Palpation of Joints or Extremities. Weakness on quadricep and thigh group of muscles. Neurological: Cranial nerves II-XII grossly intact, Deep Tendon Reflexes 2+/4 and Symmetrical, Neuro grossly intact Psych/Mental Status: Normal Affect, Appropriate. - Physical Exam Vitals/I&O's: Vital Signs Temp Pulse Resp BP Pulse Ox 97.3 F L 56 L 18 127/62 H 95 11/04/19 08:24 11/04/19 08:45 11/04/19 08:24 11/04/19 08:24 11/04/19 08:24 Oxygen Delivery Method Room Air Weight: 182 lb 5.156 oz Body Mass Index (BMI) 25.4 Orthostatic Vital Signs Start: 11/02/19 11:31 Freq: q24h Status: Active Protocol: Activity Type Activity Date Activity User E-Sign Co-Sign Detail Recorded Client Recorded Date Recorded By Document 11/04/19 04:00 MAB [id number] 11/04/19 04:51 MAB 11/04/19 04:00 Orthostatic Vitals Standing -Blood Pressure (90/60-120/80 mm Hg) 108/52 L -Extremity Use Left Arm -Pulse Rate (60-100 beats/min) 66 Sitting -Blood Pressure (90/60-120/80 mm Hg) 117/70 -Extremity Use Left Arm -Pulse Rate (60-100 beats/min) 63 Lying -Blood Pressure (90/60-120/80 mm Hg) 115/46 L -Extremity Use Left Arm -Pulse Rate (60-100 beats/min) 62 Intake and Output for Last 24 Hours 11/02/19 11/03/19 11/04/19 23:59 23:59 23:59 Intake Total 1610 / 1610 1750 / 1750 100 / 100 Balance 1610 / 1610 1750 / 1750 100 / 100 Laboratory Results 11/04/19 04:50: Sodium 142, Potassium 3.7, Chloride 111 H, Carbon Dioxide 27.0, Anion Gap 4 L, BUN 22 H, Creatinine 2.07 H, Estim Creat Clear Calc 28.29, Est GFR (MDRD) Af Amer 40 L, Est GFR (MDRD) Non-Af 33 L, BUN/Creatinine Ratio 10.6, Glucose 77, Calcium 9.1, Triglycerides 109, Cholesterol 122, LDL Cholesterol 61, VLDL Cholesterol 22, HDL Cholesterol 39 L Current Medications Acetaminophen (Tylenol) 650 mg PO Q6H PRN PRN PRN Reason: Pain Score 1-10/Temp > 100.7 F Albuterol Sulfate (Ventolin Aerosols) 2.5 mg INHALATION Q4H PRN PRN PRN Reason: SOB &/OR WHEEZING Amiodarone HCl (Cordarone) 200 mg PO BID [facility] Last Admin: 11/03/19 22:03 Dose: 200 mg Documented by: Aspirin (Aspirin) 325 mg PO DAILY@1999 [facility] Last Admin: 11/03/19 19:42 Dose: 325 mg Documented by: Carvedilol (Coreg) 3.125 mg PO BID [facility] Cholecalciferol (Vitamin D (25mcg)) 1,000 unit PO DAILY [facility] Last Admin: 11/03/19 11:56 Dose: 1,000 unit Documented by: Clopidogrel Bisulfate (Plavix) 75 mg PO DAILY [facility] Last Admin: 11/03/19 05:29 Dose: 75 mg Documented by: Colchicine (Colchicine) 0.6 mg PO DAILY [facility] Last Admin: 11/03/19 11:57 Dose: 0.6 mg Documented by: Enoxaparin Sodium (Lovenox) 30 mg SC DAILY [facility] Last Admin: 11/03/19 10:00 Dose: Not Given Documented by: Finasteride (Proscar) 5 mg PO DAILY [facility] Last Admin: 11/03/19 11:57 Dose: 5 mg Documented by: Furosemide (Lasix) 20 mg PO DAILY [facility] Hydroxychloroquine Sulfate (Plaquenil) 200 mg PO DAILY [facility] Last Admin: 11/03/19 11:57 Dose: 200 mg Documented by: Sodium Chloride () 250 mls @ 15 mls/hr IV .[id number] PRN PRN Reason: Saline Flush Sodium Chloride () 250 mls @ 15 mls/hr IV .[id number] PRN PRN Reason: Additional IVPB Infusion Isosorbide Mononitrate (Imdur) 60 mg PO DAILY [facility] Last Admin: 11/03/19 11:57 Dose: 60 mg Documented by: Levothyroxine Sodium (Synthroid) 50 mcg PO DAILY@0600 [facility] Last Admin: 11/04/19 05:47 Dose: 50 mcg Documented by: Morphine Sulfate () 2 mg IV Q3H PRN PRN PRN Reason: Pain Score 6-10/10 Nitroglycerin (Nitrostat) 0.4 mg SUBLINGUAL Q5M PRN PRN Reason: CARDIAC/CHEST PAIN Ondansetron HCl (Zofran) 4 mg IV Q8H PRN PRN PRN Reason: NAUSEA/VOMITING Oxycodone HCl (Oxyir) 5 mg PO Q6H PRN PRN PRN Reason: Pain Score 4-5/10 Pravastatin Sodium (Pravachol) 20 mg PO DAILY [facility] Last Admin: 11/03/19 11:57 Dose: 20 mg Documented by: Prednisone () 5 mg PO DAILY@0800 [facility] Last Admin: 11/04/19 08:45 Dose: 5 mg Documented by: Sodium Chloride () 10 - 40 ml IV UD PRN PRN Reason: SALINE FLUSH Last Admin: 11/04/19 08:46 Dose: 10 ml Documented by: Tamsulosin HCl (Flomax) 0.4 mg PO DAILY [facility] Last Admin: 11/03/19 11:57 Dose: 0.4 mg Documented by: Discharge Activity: May Not Drive Call your doctor if you observe: Fever of 101 or Higher, Numbness or Tingling, Inability to urinate, Shortness of breath, Dizziness, Fainting spells, Swelling in the ankles, Chest pain, Prolonged hiccoughing, Increased palpitations (irregular heartbeat), Calf discomfort, Uncontrolled pain Home Medications: Medications to take at Discharge Aspirin 325 mg PO DAILY@199905/22/16 Colchicine 0.6 mg PO DAILY 05/22/16 Finasteride [Proscar] 5 mg PO DAILY 05/22/16 Levothyroxine [Synthroid] 50 mcg PO DAILY 05/22/16 Tamsulosin HCl [Flomax] 0.4 mg PO DAILY 05/22/16 nitroglycerin 0.4 mg sublingual tablet 0.4 mg SUBLINGUAL Q5-15M PRN #25 tab 11/16/18 Prednisone 5 mg PO DAILY #0 02/10/19 Pravastatin Sodium 20 mg PO DAILY 03/25/19 albuterol sulfate 2.5 mg INHALATION Q4H PRN 04/13/19 clopidogrel 75 mg tablet 75 mg PO DAILY #90 tab 04/19/19 Hydroxychloroquine [Plaquenil] 200 mg PO DAILY 05/29/19 Cholecalciferol (Vitamin D3) [Vitamin D3] 25 mcg PO DAILY 06/17/19 amiodarone 200 mg tablet 200 mg PO BID tab 08/02/19 tramadol 50 mg tablet ea PO 08/02/19 Carvedilol [Coreg (Beta Karri)] 3.125 mg PO BID #60 tab 11/04/19 Furosemide 20 mg PO DAILY #0 11/04/19 Isosorbide Mononitrate [Isosorbide Mononitrate ER] 60 mg PO DAILY #90 tab 11/04/19 Following Prescriptions Were Given to Patient: Carvedilol [Coreg (Beta Karri)] 3.125 mg PO BID #60 tab Transmission Status: Received by [facility] Isosorbide Mononitrate [Isosorbide Mononitrate ER] 60 mg PO DAILY #90 tab Transmission Status: Received by [facility] Primary Care Physician: Miguel Pineda MD [Primary Care Provider] - Please follow up with your Primary Care Physician in: in 2 weeks Please Follow Up With: Yefri Caceres MD When: in 4 weeks Medical Necessity - Tobacco Use Smoking Status: Former smoker Meaningful Use Info Meaningful Use Diagnoses (Choose all that apply): None applicable Inpatient E&M: [id number] [facility]
--- NOTE | 2019-11-04 10:01 | PHA.DC.MR ---
Pharmacy Service has performed discharge medication reconciliation for this patient. The patient's discharge medication list was reviewed for discrepancies and discrepancies were resolved. Home Medications Aspirin 325 mg PO DAILY@199905/22/16 Colchicine 0.6 mg PO DAILY 05/22/16 Finasteride [Proscar] 5 mg PO DAILY 05/22/16 Levothyroxine [Synthroid] 50 mcg PO DAILY 05/22/16 Tamsulosin HCl [Flomax] 0.4 mg PO DAILY 05/22/16 nitroglycerin 0.4 mg sublingual tablet 0.4 mg SUBLINGUAL Q5-15M PRN #25 tab 11/16/18 Prednisone 5 mg PO DAILY #0 02/10/19 Pravastatin Sodium 20 mg PO DAILY 03/25/19 albuterol sulfate 2.5 mg INHALATION Q4H PRN 04/13/19 clopidogrel 75 mg tablet 75 mg PO DAILY #90 tab 04/19/19 Hydroxychloroquine [Plaquenil] 200 mg PO DAILY 05/29/19 Cholecalciferol (Vitamin D3) [Vitamin D3] 25 mcg PO DAILY 06/17/19 amiodarone 200 mg tablet 200 mg PO BID tab 08/02/19 tramadol 50 mg tablet ea PO 08/02/19 Carvedilol [Coreg (Beta Karri)] 3.125 mg PO BID #60 tab 11/04/19 Furosemide 20 mg PO DAILY #0 11/04/19 Isosorbide Mononitrate [Isosorbide Mononitrate ER] 60 mg PO DAILY #90 tab 11/04/19
[2019-11-04 10:15] VITALS: BP 123/65; PULSE 64
[2019-11-04] MEDS: Carvedilol 3.125 MG TABLET PO (10:21)
[2019-11-04] MEDS: Amiodarone 200 MG Tablet PO (10:21)
[2019-11-04] MEDS: Isosorbide Mononitrate 60 MG Tablet PO (10:22)
[2019-11-04] MEDS: Furosemide 20 MG Tablet PO (10:22)
[2019-11-04] MEDS: Finasteride 5 MG Tablet PO (10:22)
[2019-11-04] MEDS: Pravastatin 20 MG Tablet PO (10:22)
[2019-11-04] MEDS: Hydroxychloroquine 200 MG Tablet PO (10:22)
[2019-11-04] MEDS: Tamsulosin HCl 0.4 MG Capsule PO (10:22)
[2019-11-04] MEDS: Clopidogrel Bisulfate 75 MG Tablet PO (10:23)
--- NOTE | 2019-11-04 10:49 | CASEMGMT ---
DEAN ROWAN assessment: Face to Face with patient for initial transition planning/care coordination assessment. DEAN ROWAN introduced self and role at [facility], pt voices understanding and consents to assessment at this time. Pt is sitting up in bed in no distress at this time. Pt is A/Ox4 at this time and answers all questions appropriately at this time. Care providers, pharmacy, and demographics verified at this time. Presentation: Pt w/ CP/dizziness for about a week. CP worsened yesterday Admitting dx: CP [facility] Specialists: Morris, cardio; daisy Crain Preferred [facility]acy: [facility] Insurance: MCR A/B, [employer] Prescription Benefit: Yes Living Will/HPOA: Pt states has LW/HPOA and is aware that they are not on file at [facility] at this time. Pt states his , Silva Simpson, is HPOA. LNOK: Silva Simpson, ; Rupal Fernandez, daughter Living Arrangements: Pt states lives with on main level of 2 story home and states no concerns at home at this time. Pt states is normally independent with ADL's. Transportation: Pt states drives self and states no transportation concerns at this time. DME/HHC: Pt states has the following DME: grab bars, shower chair, and cpap. Pt states no need for any further DME at this time. Pt states no hx of HHC or SNF in the past. Pt states no need for any further therapy at this time. Pt states no concerns with going home at time of discharge. Pt states is retired. Pt states does not smoke or drink ETOH. Pt states no further questions/concerns/needs at this time. CM to follow for any further discharge planning/needs. Advised pt to ask for CM if any further questions/concerns/needs arise, voices understanding. Pt Goal: Home Plan[place]OWAN
--- NOTE | 2019-11-04 11:59 | NT.THERAPY_ITS ---
Nutrition Therapy Report - History Current diet / nutrition support order:: cardiac - Anthropometric Measurements Height:: 5 ft 11 in Weight:: 82.7 kg Body Mass Index (BMI):: 25.4 - Relevant Labs Relevant Labs:: RBC 3.66 M/mm3 (4.6-6.2) L 11/03/19 06:20 Hgb 11.5 g/dL (13.0-16.5) L 11/03/19 06:20 Hct 36.2 % (40-54) L 11/03/19 06:20 MCV 98.9 fL (80-94) H 11/03/19 06:20 MCHC 31.8 g/dL (32-36) L 11/03/19 06:20 RDW Std Deviation 51.7 fl (35.1-43.9) H 11/03/19 06:20 Plt Count 133 K/mm3 (150-450) L 11/03/19 06:20 [place] % (Auto) 10.8 % (0-10) H 11/03/19 06:20 Chloride 111 mmol/L (98-107) H 11/04/19 04:50 Anion Gap 4 (5-15) L 11/04/19 04:50 BUN 22 mg/dL (7-18) H 11/04/19 04:50 Creatinine 2.07 mg/dL (0.70-1.30) H 11/04/19 04:50 Est GFR (MDRD) Af Amer 40 mL/min (>60) L 11/04/19 04:50 Est GFR (MDRD) Non-Af 33 mL/min (>60) L 11/04/19 04:50 Total Bilirubin 1.20 mg/dL (0.20-1.00) H 11/03/19 06:20 Albumin 3.0 g/dL (3.2-5.0) L 11/03/19 06:20 HDL Cholesterol 39 mg/dL (40-) L 11/04/19 04:50 - Assessment Food / Nutrition-Related History:: Pt reports chronically decreased appetite/PO intake over the years. He states he was not eating as much as he used to because he is not as physically active as he was previously. Pt states he was eating even less over last 1 week d/t feeling unwell. Pt reports eating almost nothing a few days [employer]. Pt says UBW ~185#, CBW 182.3#-2.7#/1.45% wt loss x 1 week, significant for acute malnutrition. Currently, pt reports good appetite/intake, states he is feeling better. No special diet normally at home. SMBG occassionally- says he should be doing it more often. - Nutrition Diagnosis Problem / Etiology / Signs & Symptoms (PES):: Acute moderate malnutrition related to inadequate energy intake during acute illness as evidenced by 2.7#/1.45% wt loss x 1 week, estimated PO intake meeting <75% of estimated PO intake for 1 week. Evidence of Malnutrition Exists:: Yes Moderate PCM:: Acute Illness - Nutrition Intervention Nutrition Prescription:: [id number] calories/day, 70-80 g protein/day - Food / Nutrient Delivery Interventions Summary of nutrition intervention:: Pt w/ no questions for RDN at this time. Encouraged PO intake at meals to prevent further wt loss. Discussed ONS- pt feels PO intake has improved, so ONS declined at this time. - MNT Monitoring Further MNT monitoring and evaluation required?: Yes MNT Follow-up in:: 3-5 days
[2019-11-04 12:01] VITALS: BMI 25.4
--- NOTE | 2019-11-05 15:19 | CASEMGMT ---
DEAN ROWAN DC Call DC Date: 11/05/2019 DC Disposition: Home Intro role of CM to patient's via phone. She states no questions re: prescriptions, follow up or instructions. Patient is doing well and states his care @ [facility] was very good. Olamide MCFARLANDN RN ACM
== END 2019-11-04 13:14 | disposition home or self-care (01) | DRG 303 ==
LOC: ED 09:24 → PCU 10:15
PROVIDERS: Admitting Provider Internal Medicine; Emergency Provider Emergency Medicine; PCP Family Medicine; Visit Provider Internal Medicine
DX: I25.110 Atherosclerotic heart disease of native coronary artery with unstable angina pectoris (principal); I47.2 Ventricular tachycardia; I13.0 Hypertensive heart and chronic kidney disease with heart failure and stage 1 through stage 4 chronic kidney disease, or unspecified chronic kidney disease; I50.42 Chronic combined systolic (congestive) and diastolic (congestive) heart failure; I95.1 Orthostatic hypotension; I42.0 Dilated cardiomyopathy; I25.5 Ischemic cardiomyopathy; E11.22 Type 2 diabetes mellitus with diabetic chronic kidney disease; N18.3 Chronic kidney disease, stage 3 (moderate); E03.9 Hypothyroidism, unspecified; E86.0 Dehydration; E78.2 Mixed hyperlipidemia; N40.0 Benign prostatic hyperplasia without lower urinary tract symptoms; G47.31 Primary central sleep apnea; G47.33 Obstructive sleep apnea (adult) (pediatric); Z79.02 Long term (current) use of antithrombotics/antiplatelets; Z79.82 Long term (current) use of aspirin; Z79.890 Hormone replacement therapy; Z79.899 Other long term (current) drug therapy; Z87.891 Personal history of nicotine dependence; Z95.5 Presence of coronary angioplasty implant and graft; Z95.810 Presence of automatic (implantable) cardiac defibrillator
CPT/HCPCS: 36415; 71045; 78452; 80048; 80053; 80061; 84484; 85025; 93005; 93017; 93306; 97162; 97166; 99285; A9500; J7030; J7050; Q9957; A4216; J2785

== ENCOUNTER 2019-11-16 06:36 | Observation (INO) | payer MEDICARE, OTHER, SELFPAY ==
[2019-11-16] VITALS (19 sets, daily range): BP systolic 138–157; BP diastolic 64–74; PULSE 54–66; RESP 12–20; TEMP 36.4–36.9; O2SAT 92–100; BMI 26.7; BMI 25.9; BMI 26.0
--- NOTE | 2019-11-16 06:38 | RAD_ITS ---
STUDY: X-RAY CHEST REASON FOR EXAM: Male, 84 years old. C/O CP STARTING AT 0200 AND SOB -- HX OF 5 STENTS TECHNIQUE: Frontal view COMPARISON: 11/02/2019 FINDINGS: Pacemaker leads are in proper position. The lungs are clear and expanded. There is no demonstrated pleural abnormality. Normal size heart. Normal mediastinum and [place]. Normal visualized pulmonary arteries. Normal visualized aortic arch and descending thoracic aorta. Normal visualized thoracic spine. Normal visualized ribs, clavicles, and shoulders. There is no demonstrated abnormality of the visualized soft tissue structures of the upper abdomen. RAD/Chest 1 View (Portable) IMPRESSION: Normal x-ray examination of the chest. Electronically Signed: Zach Hernandez MD at 7:20 EDT , Service support ,
--- NOTE | 2019-11-16 06:38 | EKG12_ITS ---
Test Reason : CP Blood Pressure : / mmHG Vent. Rate : 056 BPM Atrial Rate : 056 BPM P-R Int : 230 ms QRS Dur : 120 ms QT Int : 518 ms P-R-T Axes : 033 -32 077 degrees QTc Int : 499 ms Sinus bradycardia with 1st degree A-V block Left axis deviation Incomplete left bundle branch block Nonspecific ST and T wave abnormality Abnormal ECG Confirmed by LEIDY GALLARDO, OLY ([id number]), index editor SHE BURLESON ([id number]) on 11/19/2019 12:58:33 PM Referred By: REANNA Confirmed By:OLY FORBES MD
[2019-11-16] MEDS: Aspirin 81 MG TAB.CHEW 324 MG PO (06:53)
[2019-11-16 06:54] LABS: Absolute Lymphocyte Count 1.13 X10^3/uL (0.83-4.51); Absolute Neutrophil Count 5.2 X10^3/uL (2.0-7.7); Basophil# 0.03 X10^3/uL; Basophil% 0.4 % (0-1); Eosinophil# 0.15 X10^3/uL; Eosinophils% 2.1 % (0-5); Hematocrit 35.2 % (40-54); Hemoglobin 11.4 g/dL (13.0-16.5); Lymphocyte # 1.13 X10^3/ul (4.0); Lymphocyte % 15.7 % (19-41); Mean Corp Hgb Conc 32.4 g/dL (32-36); Mean Corpuscular Hgb 31.8 pg (27.0-32.0); Mean Corpuscular Volume 98.1 fL (80-94); Mean Platelet Vol. 9.2 fl (6.2-12.0); Monocyte# 0.67 X10^3/uL; Monocyte% 9.3 % (0-10); NRBC Flagged by Analyzer 0 % (0-5); Neutrophil % 71.9 % (47-70); Platelet Count 159 K/mm3 (150-450); RBC Distribution Width CV 14.6 % (11.6-14.6); RBC Distribution Width SD 52.4 fl (35.1-43.9); Red Blood Count 3.59 M/mm3 (4.6-6.2); White Blood Count 7.2 K/mm3 (4.4-11.0)
--- NOTE | 2019-11-16 06:56 | ED.DCSUM_ITS ---
History of Present Illness Informant: Patient Narrative: Patient presenting for evaluation secondary to chest pain. Patient reports that he was awoken at about 2 AM secondary to chest pain. He reports that the tightness in his chest. Not associated with any shortness of breath. He denies any recent infectious signs or symptoms such as fever cough. Patient states that he took nitroglycerin when it started at 2 AM, and again took it 2 more times throughout the course of the night each time with some improvement of his chest pain. Patient reports that he currently has only mild chest pain. He was recently admitted secondary to concerns for exertional angina and had a negative cardiac stress test and was discharged. Patient denies that there is any sort of exertional component with this chest pain currently although does feel similar to when he was recently admitted. Review of systems otherwise negative. <Ki De Souza - Last Filed: 11/16/19 06:56> <Basim Chung - Last Filed: 11/16/19 07:48> Chief Complaint: Chest Pain Past Medical History Prior records reviewed: Yes Past Medical History: - - Coronary artery disease Surgical History: angioplasty, appendectomy, pacemaker implantation, - - AICD, appendectomy, PCI. Smoking Status: Former smoker - Family History Paternal Family History: Family History (Last Reviewed 09/23/19 @ 09:01 by Krystina Snyder) Mother Alzheimers disease Brother Cancer Brother Hypertension Brother CAD (coronary artery disease) Sister CAD (coronary artery disease) Sister Breast cancer Family History: Reports: Pulmonary Disease - emphysema, s/p lobectomy Maternal Family History: Family History (Last Reviewed 09/23/19 @ 09:01 by Krystina Snyder) Mother Alzheimers disease Brother Cancer Brother Hypertension Brother CAD (coronary artery disease) Sister CAD (coronary artery disease) Sister Breast cancer Family History: Reports: Dementia, Heart Disease Sibling Family History: Family History (Last Reviewed 09/23/19 @ 09:01 by Krystina Snyder) Mother Alzheimers disease Brother Cancer Brother Hypertension Brother CAD (coronary artery disease) Sister CAD (coronary artery disease) Sister Breast cancer Family History: Reports: Heart Disease Offspring Family History: Family History (Last Reviewed 09/23/19 @ 09:01 by Krystina Snyder) Mother Alzheimers disease Brother Cancer Brother Hypertension Brother CAD (coronary artery disease) Sister CAD (coronary artery disease) Sister Breast cancer Family History: Reports: No pertinent history <Ki De Souza - Last Filed: 11/16/19 06:56> - Family History Paternal Family History: Family History (Last Reviewed 09/23/19 @ 09:01 by Krystina Snyder) Mother Alzheimers disease Brother Cancer Brother Hypertension Brother CAD (coronary artery disease) Sister CAD (coronary artery disease) Sister Breast cancer Maternal Family History: Family History (Last Reviewed 09/23/19 @ 09:01 by Krystina Snyder) Mother Alzheimers disease Brother Cancer Brother Hypertension Brother CAD (coronary artery disease) Sister CAD (coronary artery disease) Sister Breast cancer Sibling Family History: Family History (Last Reviewed 09/23/19 @ 09:01 by Krystina Snyder) Mother Alzheimers disease Brother Cancer Brother Hypertension Brother CAD (coronary artery disease) Sister CAD (coronary artery disease) Sister Breast cancer Offspring Family History: Family History (Last Reviewed 09/23/19 @ 09:01 by Krystina Snyder) Mother Alzheimers disease Brother Cancer Brother Hypertension Brother CAD (coronary artery disease) Sister CAD (coronary artery disease) Sister Breast cancer <Basim Chung - Last Filed: 11/16/19 07:48> - Allergies and Home Meds Allergies/Adverse Reactions: Allergies atorvastatin [From Lipitor] Adverse Reaction (Verified 11/16/19 06:41) myalgia leflunomide [From Arava] Adverse Reaction (Verified 11/16/19 06:41) PROBLEMS WITH MY FEET simvastatin [From Zocor] Adverse Reaction (Verified 11/16/19 06:41) myalgia Primary Care Physician: Miguel Pineda MD [Primary Care Provider] - Review of Systems All systems negative except as indicated General: Denies: Chills, Fever, Sweats Eyes: Denies: Visual changes - bilaterally, Diplopia ENT: Denies: Rhinorrhea, Sore throat Cardiovascular: Reports: Chest pain Respiratory: Denies: Dyspnea, Cough, Dyspnea on exertion Gastrointestinal: Denies: Abdominal pain, Nausea, Vomiting, Diarrhea, Melena, Hematochezia Genitourinary: Denies: Dysuria, Hematuria, Frequency Musculoskeletal: Denies: Back pain, Extremity Pain Skin: Denies: Rash, Wounds Neurological: Denies: Headache, Weakness, Numbness <Ki De Souza - Last Filed: 11/16/19 06:56> Physical Exam Vital Signs/Narrative: Vital Signs Temp Pulse Resp BP Pulse Ox 11/16/19 06:37 97.6 F L 62 18 154/74 H 97 Inital Vital Signs reviewed: Yes General: Well nourished, Well developed, No Acute Distress Head: Normocephalic, Atraumatic Eyes: Perrl, EOMI ENT: Moist mucous membranes, No rhinorrhea Neck: Supple, Nontender Cardiovascular: Regular rate, Regular rhythm, No murmurs, - - Heart sounds are distant, but no obvious murmurs Respiratory: No distress, CTA bilaterally, Chest nontender Abdomen: Soft, Nontender, Nondistended, Normal bowel sounds Back: Nontender, Normal Inspection Extremities: Nontender, No edema, - - 2+ radial, 2+ PT pulses bilaterally symmetric Skin: Normal color, No rash Neurological: Alert, Oriented x3, Cranial nerves II-XII grossly intact, Normal Strength, Normal Sensation Psychological: Normal affect, Normal Mood <Ki De Souza - Last Filed: 11/16/19 06:56> Vital Signs/Narrative: Vital Signs Temp Pulse Resp BP Pulse Ox 11/16/19 06:37 97.6 F L 62 18 154/74 H 97 <Basim Chung - Last Filed: 11/16/19 07:48> Diagnostic/Tx/Re-eval - Medical Decision Making Pt was seen in the ED. Workup was initiated. EKG shows no acute ischemic changes . Pt will be signed out to the oncoming physician for completion of workup and disposition. <Ki De Souza - Last Filed: 11/16/19 06:56> Clinical Impression(s) from Imaging Studies Chest X-Ray 11/16/19 06:38 IMPRESSION: Normal x-ray examination of the chest. Electronically Signed: Zach Hernandez MD at 7:20 EDT , Service support , Laboratory Last Values WBC 7.2 K/mm3 (4.4-11.0) 11/16/19 06:45 RBC 3.59 M/mm3 (4.6-6.2) L 11/16/19 06:45 Hgb 11.4 g/dL (13.0-16.5) L 11/16/19 06:45 Hct 35.2 % (40-54) L 11/16/19 06:45 MCV 98.1 fL (80-94) H 11/16/19 06:45 MCH 31.8 pg (27.0-32.0) 11/16/19 06:45 MCHC 32.4 g/dL (32-36) 11/16/19 06:45 RDW Std Deviation 52.4 fl (35.1-43.9) H 11/16/19 06:45 RDW Coeff of [place] 14.6 % (11.6-14.6) 11/16/19 06:45 Plt Count 159 K/mm3 (150-450) 11/16/19 06:45 MPV 9.2 fl (6.2-12.0) 11/16/19 06:45 Immature Gran % (Auto) 0.600 % (0.0-0.9) 11/16/19 06:45 Neut % (Auto) 71.9 % (47-70) H 11/16/19 06:45 Lymph % (Auto) 15.7 % (19-41) L 11/16/19 06:45 [place] % (Auto) 9.3 % (0-10) 11/16/19 06:45 Eos % (Auto) 2.1 % (0-5) 11/16/19 06:45 Baso % (Auto) 0.4 % (0-1) 11/16/19 06:45 Absolute Neuts (auto) 5.2 X10^3/uL (2.0-7.7) 11/16/19 06:45 Absolute Lymphs (auto) 1.13 X10^3/uL (0.83-4.51) 11/16/19 06:45 Nucleated RBC % 0 % (0-5) 11/16/19 06:45 Sodium 144 mmol/L (136-145) 11/16/19 06:45 Potassium 3.6 mmol/L (3.5-5.1) 11/16/19 06:45 Chloride 110 mmol/L (98-107) H 11/16/19 06:45 Carbon Dioxide 26.0 mmol/L (21.0-32.0) 11/16/19 06:45 Anion Gap 8 (5-15) 11/16/19 06:45 BUN 36 mg/dL (7-18) H 11/16/19 06:45 Creatinine 1.80 mg/dL (0.70-1.30) H 11/16/19 06:45 Estim Creat Clear Calc 32.54 ml/min 11/16/19 06:45 Est GFR (MDRD) Af Amer 46 mL/min (>60) L 11/16/19 06:45 Est GFR (MDRD) Non-Af 38 mL/min (>60) L 11/16/19 06:45 BUN/Creatinine Ratio 20.0 RATIO (10-20) 11/16/19 06:45 Glucose 91 mg/dL (74-106) 11/16/19 06:45 Calcium 9.1 mg/dL (8.5-10.1) 11/16/19 06:45 Troponin I < 0.015 ng/mL (<0.045) 11/16/19 06:45 - EKG Initial EKG Interpretation: Sinus Bradycardia - EKG demonstrates a sinus bradycardia with a first-degree AV block. Incomplete left bundle. 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 Caceres. Plan is admission for further cardiac evaluation. <Basim Chung - Last Filed: 11/16/19 07:48> ED Disposition <Ki De Souza - Last Filed: 11/16/19 06:56> <Basim Chung - Last Filed: 11/16/19 07:48> - Plan for ED Patient: Disposition: Acute Care Hospital [facility] Diagnosis: Chest pain, CAD (coronary artery disease), Cardiomyopathy, Chronic renal failure, stage 3 (moderate), Diabetes mellitus type 2 in nonobese, Essential hypertension, Mixed hyperlipidemia Referrals: Miguel Pineda MD [Primary Care Provider] -
[2019-11-16 07:14] LABS: Anion Gap 8 (5-15); BUN 36 mg/dL (7-18); Calcium,Total 9.1 mg/dL (8.5-10.1); Chloride 110 mmol/L (98-107); EST Glomerular Filtration Rate 38 mL/min (>60); Est Glom Filt Rate - Afr Amer 46 mL/min (>60); Estimated Creatinine Clearance 32.54 ml/min; Glucose 91 mg/dL (74-106); Potassium 3.6 mmol/L (3.5-5.1); Sodium Level 144 mmol/L (136-145)
--- NOTE | 2019-11-16 07:50 | NURSING ---
DR MAX ADRIAN
--- NOTE | 2019-11-16 07:52 | NURSING ---
PCU OBS CP, CAD
[2019-11-16] MEDS: 0.9% Normal Saline 1,000 ML 50 ML IV ×2 (08:08→21:51)
--- NOTE | 2019-11-16 08:09 | PCM.HP.STD ---
History of Present Illness Date of Admission: 11/16/19 Chief Complaint: Chest pain The patient is a 84 year old M with multiple comorbidities including coronary artery disease with previous PCI, ischemic cardiomyopathy with an ejection fraction of 20%, recently discharged from the hospital following admission for syncope and chest pain for which patient underwent a nuclear stress test which did not demonstrate any areas of myocardial perfusion diagnostic for stress-induced ischemia. Patient was discharged home with optimization of medical therapy. Patient presented back on the morning of her admission with chest pain pain started on the night prior to patient being admitted. Described as dull sensation in the left upper chest. Patient pain okay at rest. Presented to the emergency department initial set of cardiac enzymes and EKG nondiagnostic admitted to a monitored bed for subsequent management with consultation placed to cardiology Past Medical History Past Medical History (Chronic Problems): Chronic Problems (Last Reviewed 09/23/19 @ 09:01 by Krystina Snyder) CAD (coronary artery disease) (Chronic) 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) History of appendectomy (Chronic) Presence of coronary angioplasty implant and graft (Chronic ~09/23/06) PTCA and stenting of the LAD and diagonal 09/23/2006 Abnormal echocardiogram (Chronic) Mixed hyperlipidemia (Chronic) Atherosclerotic heart disease of [place] coronary artery without angina pectoris (Chronic) PTCA and stenting of the LAD and diagonal 09/23/2006 Essential hypertension (Chronic) Mixed sleep apnea (Chronic) BiPAP 17/11 mm of water with a backup rate of 12 Hypersomnolence disorder (Chronic) Dilated cardiomyopathy (Chronic) 15% EF Paroxysmal ventricular tachycardia (Chronic) Abnormal result of cardiovascular function study, unspecified (Chronic) 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) Implant: 06/2000; Generator change: 03/17/2008 Hypothyroidism, iatrogenic (Chronic) 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 Dionisio Sanchez MD) History of left heart catheterization (LHC) (Resolved) Onset Date: ~06/18/19 Z98.890 - Per Cath 06/18/19- LEFT MAIN: distal: eccentric: 25 % Stenosis; LEFT ANTERIOR DESCENDING ARTERY: PROX LAD: Previously placed stent is patent with mild luminal irregularities, Previously placed stent has an instent proximal: 25 - 50 % restenosis, MID LAD: Mild luminal irregularities; DIAGONAL 1: Proximal - Previously placed stent is patent with mild luminal irregularities; CIRCUMFLEX ARTERY: PROX CIRC: eccentric: 25 % Stenosis, Previously placed stent is patent with mild luminal irregularities; OM 1: Proximal - 25 % Stenosis (small caliber vessel), OM 2: Mid - Mild luminal irregularities; RIGHT CORONARY ARTERY: PROX RCA: diffuse: eccentic: 25 % Stenosis, MID RCA: eccentric: 25 - 50 % Stenosis, DISTAL RCA: diffuse: eccentric: 10 - 25 % Stenosis; RT PDA: Proximal - Mild luminal irregularities. - Per cath 01/05/19- LEFT MAIN: distal: eccentric: 25 % Stenosis; LEFT ANTERIOR DESCENDING ARTERY: PROX LAD: Previously placed stent is patent with minimal luminal irregularities, MID LAD: Mild luminal irregularities, 25 % Stenosis, DISTAL LAD: Mild luminal irregularities; DIAGONAL 1: Proximal - Previously placed stent is patent with minimal luminal irregularities; CIRCUMFLEX ARTERY: PROX CIRC: Previously placed stent is patent with minimal luminal irregularities, OM 2: Mid - Mild luminal irregularities, RIGHT CORONARY ARTERY: Mild luminal irregularities, PROX RCA: diffuse: eccentric: 25 % Stenosis, MID RCA: eccentric: 25 - 50 % Stenosis, DISTAL RCA: diffuse: eccentric: 10 - 25 % Stenosis; RT PDA: Proximal - Mild luminal irregularities. 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) I70.219 Chronic renal failure, stage 3 (moderate) (Chronic) N18.3 Diabetes mellitus type 2 in nonobese (Chronic) E11.9 Sustained ventricular tachycardia (Chronic) I47.2 Hypothyroidism (Chronic) E03.9 Cardiomyopathy (Chronic) I42.9 Fatigue (Resolved) R53.83 Myalgia (Resolved) M79.1 Allergies atorvastatin [From Lipitor] Adverse Reaction (Verified 11/16/19 06:41) myalgia leflunomide [From Arava] Adverse Reaction (Verified 11/16/19 06:41) PROBLEMS WITH MY FEET simvastatin [From Zocor] Adverse Reaction (Verified 11/16/19 06:41) myalgia Home Medications: Ambulatory Orders Medication Instructions Recorded Aspirin 325 mg PO DAILY@199905/22/16 Colchicine 0.6 mg PO DAILY 05/22/16 Finasteride [Proscar] 5 mg PO DAILY 05/22/16 Levothyroxine [Synthroid] 50 mcg PO DAILY 05/22/16 Tamsulosin HCl [Flomax] 0.4 mg PO DAILY 05/22/16 nitroglycerin 0.4 mg sublingual 0.4 mg SUBLINGUAL Q5-15M PRN #25 11/16/18 tablet tab Prednisone 5 mg PO DAILY #0 02/10/19 albuterol sulfate 2.5 mg INHALATION Q4H PRN 04/13/19 clopidogrel 75 mg tablet 75 mg PO DAILY #90 tab 04/19/19 Hydroxychloroquine [Plaquenil] 200 mg PO DAILY 05/29/19 Cholecalciferol (Vitamin D3) 25 mcg PO DAILY 06/17/19 [Vitamin D3] amiodarone 200 mg tablet 200 mg PO BID tab 08/02/19 tramadol 50 mg tablet 1 ea PO QHS 08/02/19 Furosemide 20 mg PO DAILY #0 11/04/19 pravastatin 20 mg tablet 20 mg PO DAILY #90 tab 11/08/19 Carvedilol 6.25 mg PO BID 11/16/19 Isosorbide Mononitrate [Isosorbide 30 mg PO DAILY 11/16/19 Mononitrate ER] Surgical History: Surgical History (Last Reviewed 11/16/19 @ 12:[address] Dionisio Sanchez MD) History of appendectomy (Chronic) Z98.890, Z90.49 Presence of coronary angioplasty implant and graft (Chronic) Onset Date: ~09/23/06 Z95.5 PTCA and stenting of the LAD and diagonal 09/23/2006 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) Z95.810 Implant: 06/2000; Generator change: 03/17/2008 Surgical History: angioplasty, appendectomy, pacemaker implantation, - - AICD, appendectomy, PCI. Psychiatric History: No pertinent psych hx Smoking Status: Former smoker - *Family History Paternal Family History: Family History (Last Reviewed 11/16/19 @ 12:[address] Dionisio Sanchez MD) Mother Alzheimers disease Brother Cancer Brother Hypertension Brother CAD (coronary artery disease) Sister CAD (coronary artery disease) Sister Breast cancer History Items: Pulmonary Disease - emphysema, s/p lobectomy Maternal Family History: Family History (Last Reviewed 11/16/19 @ 12:[address] Dionisio Sanchez MD) Mother Alzheimers disease Brother Cancer Brother Hypertension Brother CAD (coronary artery disease) Sister CAD (coronary artery disease) Sister Breast cancer History Items: Dementia, Heart Disease Sibling Family History: Family History (Last Reviewed 11/16/19 @ 12:[address] Dionisio Sanchez MD) Mother Alzheimers disease Brother Cancer Brother Hypertension Brother CAD (coronary artery disease) Sister CAD (coronary artery disease) Sister Breast cancer History Items: Heart Disease Offspring Family History: Family History (Last Reviewed 11/16/19 @ 12:[address] Dionisio Sanchez MD) Mother Alzheimers disease Brother Cancer Brother Hypertension Brother CAD (coronary artery disease) Sister CAD (coronary artery disease) Sister Breast cancer History Items: No pertinent history Review of Systems Constitutional: Denies: Anorexia, Chills, Fever, Night Sweats, Weight Change HEENT: Denies: Head Aches, Sinus Congestion, Sinus Drainage Cardiovascular: Reports: Chest Pain. Denies: Orthopnea, Palpitations, Paroxysmal Noc. Dyspnea Respiratory: Denies: Cough, Shortness of breath at rest, Shortness of breath upon exertion, Sputum production Gastrointestinal: Denies: Abdominal Pain, Hematemesis, Hematochezia, Nausea, Melena, Vomiting Genitourinary: Denies: Dysuria, Frequency, Hematuria, Urgency Musculoskeletal: Denies: Joint Pain, Joint Tenderness Skin: Denies: Rash Neurological: Denies: Focal weakness, Numbness, Tingling Psychiatric: Denies: Homicidal Ideations, Suicidal Ideations Hematologic/ Lymphatic: Denies: Easy Bruising, Easy Bleeding VTE Information - Inpt Only VTE Present on Admission: No VTE Mechan Device Prophylaxis: None VTE Pharm Prophylaxis ordered?: Yes Patient Problems: Active and Suspected Problems (Last Reviewed 09/23/19 @ 09:01 by Krystina Snyder) Unstable angina (Acute) Chest pain (Acute) Objective: GENERAL: cooperative HEENT: Atraumatic; EYES; Anicteric, Normal Conjunctiva NECK; supple, normal thyroid, RESPIRATORY: Diminished to auscultation CARDIOVASCULAR: Regular S1 S2, GI: soft, normoactive bowel sounds, : No Renal angle tenderness; EXTREMITIES: No edema, no clubbing, MUSCULOSKELETAL: no muscle waisting NEURO: Awake; no lateralizing signs. SKIN: No Rash PSYCH; Flat affect - Physical Exam Vitals/I&O's: Vital Signs Temp Pulse Resp BP Pulse Ox 97.6 F L 62 18 154/74 H 97 11/16/19 06:37 11/16/19 06:37 11/16/19 06:37 11/16/19 06:37 11/16/19 06:37 Oxygen Flow Rate (L/min) 2 Oxygen Delivery Method Nasal Cannula Weight: 86.9 kg Body Mass Index (BMI) 26.7 Laboratory Results 11/16/19 06:45: WBC 7.2, RBC 3.59 L, Hgb 11.4 L, Hct 35.2 L, MCV 98.1 H, MCH 31.8, MCHC 32.4, RDW Std Deviation 52.4 H, RDW Coeff of [place] 14.6, Plt Count 159, MPV 9.2, Immature Gran % (Auto) 0.600, Neut % (Auto) 71.9 H, Lymph % (Auto) 15.7 L, [place] % (Auto) 9.3, Eos % (Auto) 2.1, Baso % (Auto) 0.4, Absolute Neuts (auto) 5.2, Absolute Lymphs (auto) 1.13, Nucleated RBC % 0 11/16/19 06:45: Sodium 144, Potassium 3.6, Chloride 110 H, Carbon Dioxide 26.0, Anion Gap 8, BUN 36 H, Creatinine 1.80 H, Estim Creat Clear Calc 32.54, Est GFR (MDRD) Af Amer 46 L, Est GFR (MDRD) Non-Af 38 L, BUN/Creatinine Ratio 20.0, Glucose 91, Calcium 9.1, Troponin I < 0.015 Current Medications Sodium Chloride () 1,000 mls @ 50 mls/hr IV .Q20H [facility] Assessment/Plan All Active Problems (Last Reviewed 09/23/19 @ 09:01 by Krystina Snyder) Exertional angina (Acute) S/P PTCA (percutaneous transluminal coronary angioplasty) (Acute) Unstable angina (Acute) Dysrhythmia, cardiac (Acute) Chest pain (Acute) Angina pectoris (Acute) Near syncope (Resolved) History of left heart catheterization (LHC) (Resolved ~06/18/19) Acute on chronic combined systolic and diastolic heart failure (Resolved) Chest pain (Resolved) Fatigue (Resolved) Hypoxia (Resolved) Myalgia (Resolved) Patient is an 84-year-old gentleman with underlying history of CAD presented with chest pain 1. Chest pain suspicious for unstable angina ?Patient underwent a nuclear stress test a week prior to his current admission which was nondiagnostic presents with recurrent symptoms. Admitted to a monitored bed being managed as a case of unstable angina with consultation placed to cardiology. Case discussed with Dr. Caceres plan is for patient to undergo repeat left heart catheterization with intervention if needed 2. Coronary artery disease ?With previous PCI to LAD and diagonal branches 3. Ischemic cardiomyopathy with ejection fraction of 20% with history of paroxysmal ventricular tachycardia ?Patient has an AICD in situ and is on amiodarone 4. Hypertension - Blood pressure controlled, home medications continued with dose adjustment as needed 5. Hypothyroidism - Patient is on levothyroxine home dose continued 6. Dyslipidemia -Patient is on statin therapy, continued at home dose 7. Diabetes mellitus type 2 ?With complications including diabetic nephropathy currently managed with diet with sliding scale coverage 8. Chronic kidney disease stage III ?Kidney function at baseline with anticipated patient left of catheterization on 11/16/2019 BMP for the morning was ordered 10. BPH ?Patient is on finasteride and tamsulosin did continue 11. Inflammatory polyarthritis ?Patient is on hydroxychloroquine as well as low-dose prednisone 12. DVT prophylaxis - On enoxaparin Advance planning; did discuss with the patient and family regarding advanced directives as well as CODE STATUS. Did explain the various scenarios involved ( FULL CODE, DNR CCA, DNR CCA with no intubation, and DNR CC and what each meant) patient being full code with CPR and intubation if warranted. Order was placed. Time spent on discussion 18 minutes. OBSV E&M: 33631 Initial observation care L3 Procedures: 24556 Advncd Care Plan 30 Min
--- NOTE | 2019-11-16 08:47 | EKG12_ITS ---
Test Reason : CP ADMISSION Blood Pressure : / mmHG Vent. Rate : 056 BPM Atrial Rate : 056 BPM P-R Int : 238 ms QRS Dur : 130 ms QT Int : 462 ms P-R-T Axes : 042 -25 128 degrees QTc Int : 445 ms Sinus bradycardia with 1st degree A-V block Non-specific intra-ventricular conduction block T wave abnormality, (Nonspecific) Abnormal ECG Confirmed by BEATRIZ GALLARDO, TRISTAN ([id number]), makeup editor ASCENCION MOORE ([id number]) on 11/18/2019 2:00:59 PM Referred By: MAX Confirmed By:TRISTAN HENDERSON MD
--- NOTE | 2019-11-16 09:33 | PCM.CONS.C ---
Problem List (1) Unstable angina Status: Acute (2) CAD (coronary artery disease) Status: Chronic Qualifiers: Coronary Disease-Associated Artery/Lesion type: [place] artery [place] vs. transplanted heart: [place] heart Associated angina: with unstable angina Qualified Code(s): I25.110 - Atherosclerotic heart disease of [place] coronary artery with unstable angina pectoris (3) S/P PTCA (percutaneous transluminal coronary angioplasty) Status: Acute (4) Dilated cardiomyopathy Status: Chronic Comment: 15% EF (5) Paroxysmal ventricular tachycardia Status: Chronic (6) History of implantable cardioverter-defibrillator (ICD) placement Status: Chronic Comment: Implant: 06/2000; Generator change: 03/17/2008 (7) Mixed hyperlipidemia Status: Chronic (8) Essential hypertension Status: Chronic (9) Acute renal failure superimposed on stage 3 chronic kidney disease Status: Inactive Comment: 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 Reason for Consult Date of Consultation: 11/16/19 History of Present Illness: The patient is a 84 year old white male with a past medical history of CAD, LAD/diagonal branch PCI-remote, cardiomyopathy, paroxysmal ventricular tachycardia, ICD, hyperlipidemia, hypertension, diabetes mellitus, chronic renal sufficiency who presents for concerns of unstable angina pectoris requiring NTG SL use x 3. He states since his most recent hospitalization he had been doing well until this past evening. Throughout the night he was having left-sided chest discomfort which she describes as a dull hurting sensation. It did not radiate. It was not associated with other acute symptoms. He did use nitroglycerin sublingual x3 throughout the night. He did feel relief of his discomfort. Based upon his ongoing concerns he presented back to the [facility] emergency department for reevaluation. His initial troponin I level was negative. His ECG demonstrated sinus rhythm with left axis deviation, and incomplete left bundle branch block pattern, and nonspecific ST and T wave abnormality. He has been taking his medications at home as prescribed. He remains active at home. He has denied any other concerning fever, chills, night sweats, or respiratory related type symptoms. On his recent hospitalization he underwent reevaluation noninvasively which included a pharmacologic stress nuclear imaging study. The results are noted below. Also notes since his recent hospitalization that he has been monitoring his fluid status. He has been trying to avoid dehydration. It is noted on his laboratory studies today that his creatinine level has improved overall. [] Past Medical History Allergies/Adverse Reactions: Allergies atorvastatin [From Lipitor] Adverse Reaction (Verified 11/16/19 06:41) myalgia leflunomide [From Arava] Adverse Reaction (Verified 11/16/19 06:41) PROBLEMS WITH MY FEET simvastatin [From Zocor] Adverse Reaction (Verified 11/16/19 06:41) myalgia Home Medications: Ambulatory Orders Medication Instructions Recorded Aspirin 325 mg PO DAILY@199905/22/16 Colchicine 0.6 mg PO DAILY 05/22/16 Finasteride [Proscar] 5 mg PO DAILY 05/22/16 Levothyroxine [Synthroid] 50 mcg PO DAILY 05/22/16 Tamsulosin HCl [Flomax] 0.4 mg PO DAILY 05/22/16 nitroglycerin 0.4 mg sublingual 0.4 mg SUBLINGUAL Q5-15M PRN #25 11/16/18 tablet tab Prednisone 5 mg PO DAILY #0 02/10/19 albuterol sulfate 2.5 mg INHALATION Q4H PRN 04/13/19 clopidogrel 75 mg tablet 75 mg PO DAILY #90 tab 04/19/19 Hydroxychloroquine [Plaquenil] 200 mg PO DAILY 05/29/19 Cholecalciferol (Vitamin D3) 25 mcg PO DAILY 06/17/19 [Vitamin D3] amiodarone 200 mg tablet 200 mg PO BID tab 08/02/19 tramadol 50 mg tablet 1 ea PO QHS 08/02/19 Furosemide 20 mg PO DAILY #0 11/04/19 pravastatin 20 mg tablet 20 mg PO DAILY #90 tab 11/08/19 Carvedilol 6.25 mg PO BID 11/16/19 Isosorbide Mononitrate [Isosorbide 30 mg PO DAILY 11/16/19 Mononitrate ER] Past Medical History (Chronic Problems): Chronic Problems (Last Reviewed 09/23/19 @ 09:01 by Krystina Snyder) CAD (coronary artery disease) (Chronic) 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) History of appendectomy (Chronic) Presence of coronary angioplasty implant and graft (Chronic ~09/23/06) PTCA and stenting of the LAD and diagonal 09/23/2006 Abnormal echocardiogram (Chronic) Mixed hyperlipidemia (Chronic) Atherosclerotic heart disease of [place] coronary artery without angina pectoris (Chronic) PTCA and stenting of the LAD and diagonal 09/23/2006 Essential hypertension (Chronic) Mixed sleep apnea (Chronic) BiPAP 17/11 mm of water with a backup rate of 12 Hypersomnolence disorder (Chronic) Dilated cardiomyopathy (Chronic) 15% EF Paroxysmal ventricular tachycardia (Chronic) Abnormal result of cardiovascular function study, unspecified (Chronic) 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) Implant: 06/2000; Generator change: 03/17/2008 Hypothyroidism, iatrogenic (Chronic) 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 Psychiatric History: No pertinent psych hx - *Family History Paternal Family History: Family History (Last Reviewed 09/23/19 @ 09:01 by Krystina Snyder) Mother Alzheimers disease Brother Cancer Brother Hypertension Brother CAD (coronary artery disease) Sister CAD (coronary artery disease) Sister Breast cancer History Items: Pulmonary Disease - emphysema, s/p lobectomy Maternal Family History: Family History (Last Reviewed 09/23/19 @ 09:01 by Krystina Snyder) Mother Alzheimers disease Brother Cancer Brother Hypertension Brother CAD (coronary artery disease) Sister CAD (coronary artery disease) Sister Breast cancer History Items: Dementia, Heart Disease Sibling Family History: Family History (Last Reviewed 09/23/19 @ 09:01 by Krystina Snyder) Mother Alzheimers disease Brother Cancer Brother Hypertension Brother CAD (coronary artery disease) Sister CAD (coronary artery disease) Sister Breast cancer History Items: Heart Disease Offspring Family History: Family History (Last Reviewed 09/23/19 @ 09:01 by Krystina Snyder) Mother Alzheimers disease Brother Cancer Brother Hypertension Brother CAD (coronary artery disease) Sister CAD (coronary artery disease) Sister Breast cancer History Items: No pertinent history Lives: Spouse/ Significant Other Smoking Status: Former smoker Alcohol: None Drugs: None Review of Systems - Review of Systems General: Denies: Fever, Night Sweats, Fatigue Cardiovascular: Reports: Chest Discomfort, Chest Discomfort at Rest Respiratory: Denies: Cough, Sputum Production, Hemoptysis Gastrointestinal: Denies: Hematemesis, Hematochezia, Melena Genitourinary: Denies: Dysuria, Hematuria Skin: Denies: Rash Subjectve: Is an 84-year-old white male appears to be resting reasonably comfortably at the moment in no acute distress. Objective: Vital Signs Temp Pulse Resp BP Pulse Ox 97.8 F 56 L 16 150/66 H 98 11/16/19 09:20 11/16/19 09:20 11/16/19 09:20 11/16/19 09:20 11/16/19 09:20 Oxygen Flow Rate (L/min) 2 Oxygen Delivery Method Nasal Cannula Weight: 186 lb 8.177 oz Body Mass Index (BMI) 25.9 General: Awake, Alert, Oriented x 3, Cooperative, No Acute Distress HEENT: Atraumatic, Normocephalic, PERRL, EOMI, Sclera Non Icteric Neck: Supple, Good ROM, No JVD Lungs: Clear to auscultation Cardiovascular: Regular Rhythm, Normal S1, Normal S2 Abdomen: Bowel Sounds Present, Soft Extremities: No edema Psych/Mental Status: Appropriate 11/16/19 06:45: WBC 7.2, RBC 3.59 L, Hgb 11.4 L, Hct 35.2 L, MCV 98.1 H, MCH 31.8, MCHC 32.4, Plt Count 159, MPV 9.2, Immature Gran % (Auto) 0.600, Neut % (Auto) 71.9 H, Lymph % (Auto) 15.7 L, Cotton % (Auto) 9.3, Eos % (Auto) 2.1, Baso % (Auto) 0.4, Absolute Neuts (auto) 5.2, Nucleated RBC % 0 11/16/19 06:45: Sodium 144, Potassium 3.6, Chloride 110 H, Carbon Dioxide 26.0, Anion Gap 8, BUN 36 H, Creatinine 1.80 H, Est GFR (MDRD) Af Amer 46 L, Est GFR (MDRD) Non-Af 38 L, BUN/Creatinine Ratio 20.0, Glucose 91, Calcium 9.1, Troponin I < 0.015 Rhythm: Sinus rhythm EKG: As noted above ECHO: ?2018 Interpretation Summary Moderately dilated left ventricle. Severe segmental systolic dysfunction (see wall motion). The estimated ejection fraction is 15 %. Mild global right ventricular systolic dysfunction. The left atrium is moderately enlarged. The right atrium is mildly enlarged. Mild diffuse mitral valve thickening. Mild papillary muscle dysfunction of the mitral valve. Mild-Moderate (1-2+) mitral valve insufficiency. Moderate (2+) tricuspid valve insufficiency. Mild focal aortic valve calcification. Mild (1+) aortic valve insufficiency. Mild (1+) pulmonic valve insufficiency. Borderline enlarged aortic root. Right ventricular systolic pressure estimated to be 41 mmHg. Transmitral diastolic flow velocities suggest diastolic dysfunction (pseudonormal pattern). ICD or pacer leads identified within the right atrium ICD or pacer leads identified within the right ventricle. Echo: 11-02-2019 Interpretation Summary The study was technically difficult. Mildly dilated left ventricle. Severe segmental systolic dysfunction (see wall motion). The estimated ejection fraction is 20 %. Mild concentric left ventricular hypertrophy. Apical false tendon noted. The left atrium is mildly enlarged. Mild diffuse mitral valve thickening. Mild papillary muscle dysfunction of the mitral valve. Trivial mitral valve insufficiency. Mild tricuspid valve insufficiency. Mild focal aortic valve calcification. Mild-Moderate (1-2+) aortic valve insufficiency. Mild (1+) pulmonic valve insufficiency. Right ventricular systolic pressure estimated to be 30 mmHg. Diastolic function is indeterminate. ICD or pacer leads identified within the right atrium ICD or pacer leads identified within the right ventricle. Stress Test: 11-06-18 Procedure: Pharmacologic stress nuclear imaging study Indications: Chest pain Consent: Per the patient Procedure: The patient underwent pharmacologic (Regadenoson) evaluation with a peak heart rate of 85 beats per minute (62 %predicted maximal heart rate) and a peak blood pressure of 116/70 mmHg. The baseline ECG demonstrated normal sinus rhythm, nonspecific intraventricular conduction delay, possible prior anterior AK, nonspecific ST-T changes. EKG during lexiscan infusion revealed no significant change from baseline. EKG post infusion revealed no significant change from baseline [There were no cardiac dysrhythmias pretest, during pharmacologic infusion, or recovery]. [There was no complaint of chest discomfort during pharmacologic infusion or recovery]. The examination was discontinued secondary to completion of protocol. Impression: 1. Lexiscan stress test test is negative for Lexiscan infusion induced EKG changes of ischemia. 2. Lexiscan stress test test is negative for Lexiscan infusion induced chest pain. 3. Results of the nuclear portion of the test is as below Myocardial perfusion imaging study: Technique: The patient was injected with 12 millicuries of technetium 99m Cardiolite and subsequently rest SPECT Cardiolite nuclear imaging was obtained in the horizontal long, vertical long, and short axis views. The patient underwent pharmacologic (Regadenoson) evaluation. Please see above for details. The patient was injected with 31.2 millicuries of technetium 99m Cardiolite and subsequently stress SPECT Cardiolite nuclear imaging was obtained in the horizontal long, vertical long, and short axis views. A gated Cardiolite study at peak stress was obtained. Interpretation: Rest and stress SPECT Cardiolite nuclear imaging status post realignment, normalization, and attenuation correction demonstrate moderately decreased radioisotope uptake in the apex on both the rest and stress images. This is suggestive of prior apical myocardial infarction. Prior to attenuation correction there is also decreased radioisotope uptake in the inferior wall that gets better with attenuation correction suggestive of diaphragmatic attenuation artifact. There is no evidence of significant ischemia. Gated images reveal severe global hypokinesis. The reported LVEF is 18 %. Impression: 1. There is no evidence of significant ischemia. 2. Estimated ejection fraction is 18%. Stress test: 11-03-[address] Yefri Caceres MD on 11/03/19 at 1303 Addendum: Correction: Impression: Impression #1 should read as the followin. Rest and stress SPECT current nuclear imaging demonstrate myocardial perfusion changes compatible with the effects of physiologic apical thinning with no myocardial perfusion changes considered diagnostic for associated stress-induced myocardial ischemia, as well as, demonstrating findings compatible with left ventricular dilatation. 11/03/19 1303 Date Yefri Caceres MD cc: Dr. Miguel Pineda MD; Dr. Giovanny Pacheco MD ~* Signed Stress Test Report Date: 11-03-2019 Procedure: Pharmacologic stress nuclear imaging study Indications: Chest pains; shortness of breath/dyspnea; CAD; PCI; cardiomyopathy; ICD Consent: Per the patient Procedure: The patient underwent pharmacologic (Regadenoson) evaluation with a peak heart rate of 61 beats per minute (44 %predicted maximal heart rate) and a peak blood pressure of 142/78 mmHg. The baseline ECG demonstrated sinus bradycardia; incomplete left bundle branch block pattern; nonspecific ST/T wave abnormality. The peak pharmacologic ECG demonstrated no obvious ECG changes. There were no cardiac dysrhythmias pretest, during pharmacologic infusion, or recovery. There was no complaint of chest discomfort during pharmacologic infusion or recovery. The examination was discontinued secondary to completion of protocol. Impression: 1. Pharmacologic (Regadenoson) evaluation 2. Peak pharmacologic ECG with no obvious ECG changes. 3. There were no cardiac dysrhythmias pretest, during pharmacologic infusion, or recovery. 4. Nuclear images pending Myocardial perfusion imaging study: Technique: The patient was injected with 11.6 millicuries of technetium 99m Cardiolite and subsequently rest SPECT Cardiolite nuclear imaging was obtained in the horizontal long, vertical long, and short axis views. The patient underwent pharmacologic (Regadenoson) evaluation with a peak heart rate of 61 beats per minute (44 % percent predicted maximal heart rate) and a peak blood pressure of 142/78 mmHg. The patient was injected with 34.1 millicuries of technetium 99m Cardiolite and subsequently stress SPECT Cardiolite nuclear imaging was obtained in the horizontal long, vertical long, and short axis views. A gated Cardiolite study at peak stress was obtained. Interpretation: Rest and stress SPECT Cardiolite nuclear imaging status post realignment, normalization, and attenuation correction demonstrate the appearance of diminished myocardial perfusion/tracer uptake in the apical segments without significant change between rest and stress. There is also congestion of left ventricular dilatation pre-and post stress. There is diminished end systolic thickening and brightening. The gated Cardiolite study demonstrates diminished myocardial thickening and inward wall motion. The reported LVEF is 33 %. Impression: 1. Rest and stress SPECT current nuclear imaging demonstrate myocardial perfusion changes compatible with the effects of physiologic apical thinning with no myocardial perfusion changes consider diagnostic for associated stress-induced myocardial ischemia, as well as, demonstrating findings compatible with left ventricular dilatation. 2. The gated Cardiolite study reports an LVEF of 33 %. Cardiac Cath: 01-05-19 CORONARY ANGIOGRAPHY DOMINANCE: Right Dominant LEFT HEART ASSESSMENT Left Ventricular Ejection Fraction: Not assessed Elevated Left Ventricular End Diastolic Pressure LVEDP: 25 mmHg LEFT MAIN: distal: eccentric: 25 % Stenosis LEFT ANTERIOR DESCENDING ARTERY: PROX LAD: Previously placed stent is patent with minimal luminal irregularities MID LAD: Mild luminal irregularities, 25 % Stenosis DISTAL LAD: Mild luminal irregularities DIAGONAL 1: Proximal - Previously placed stent is patent with minimal luminal irregularities CIRCUMFLEX ARTERY: PROX CIRC: Previously placed stent is patent with minimal luminal irregularities OM 2: Mid - Mild luminal irregularities RIGHT CORONARY ARTERY: Mild luminal irregularities PROX RCA: diffuse: eccentric: 25 % Stenosis MID RCA: eccentric: 25 - 50 % Stenosis DISTAL RCA: diffuse: eccentric: 10 - 25 % Stenosis RT PDA: Proximal - Mild luminal irregularities Cardiac catheterization: 06-18-2019 CONCLUSIONS [place] Multivessel CAD RECOMMENDATIONS Risk factor modification Medical therapy Case discussed / reviewed with Basim Garnica MD (Interventional Cardiology) CORONARY ANGIOGRAPHY DOMINANCE: Right Dominant LEFT HEART ASSESSMENT Left Ventricular Ejection Fraction: Not assessed LEFT MAIN: distal: eccentric: 25 % Stenosis LEFT ANTERIOR DESCENDING ARTERY: PROX LAD: Previously placed stent is patent with mild luminal irregularities, Previously placed stent has an instent proximal: 25 - 50 % restenosis MID LAD: Mild luminal irregularities DIAGONAL 1: Proximal - Previously placed stent is patent with mild luminal irregularities CIRCUMFLEX ARTERY: PROX CIRC: eccentric: 25 % Stenosis, Previously placed stent is patent with mild luminal irregularities OM 1: Proximal - 25 % Stenosis (small caliber vessel) OM 2: Mid - Mild luminal irregularities RIGHT CORONARY ARTERY: PROX RCA: diffuse: eccentic: 25 % Stenosis MID RCA: eccentric: 25 - 50 % Stenosis DISTAL RCA: diffuse: eccentric: 10 - 25 % Stenosis RT PDA: Proximal - Mild luminal irregularities CXR: No acute cardiopulmonary disease process appreciated: Please see official report Assessment/Plan 1. Unstable angina The patient presents with symptoms concerning for accelerating/unstable angina. At the present time he states overall he has been doing well until yesterday evening. His symptoms are noted. His cardiac enzymes have been negative thus far. His ECG is noted. He has undergone recent noninvasive evaluation. At the present time with no other explanation for his symptoms it was felt that the patient should be considered for further evaluation with cardiac catheterization-noting now at this time his creatinine level has improved-with additional revascularization therapy as deemed appropriate. The procedure and risks were discussed with the patient with the daughter present. He was agreeable to this approach. 2. CAD status post PCI He does have a history of CAD/PCI superimposed upon his non-CAD related cardiomyopathy. Again he has been having recurrent symptoms without other obvious explanation. He is undergone noninvasive evaluation as noted above. He will continue medical therapy and proceed with further evaluation as noted. 3. Cardiomyopathy He does have a history of a non-CAD related cardiomyopathy prior to the development of CAD requiring PCI. At the present time he will continue medical management further evaluation is noted. 4. PVT He has a history of ventricular dysrhythmias. He is status post medical therapy and ICD placement. 5. ICD He does have an ICD in place. He states it has not discharged. He will continue medical management. 6. Hyperlipidemia He will continue risk factor evaluation care as tolerated. 7. Hypertension He will continue monitoring his blood pressure with adjustment of his fluid status and his medications as needed. 8. Chronic renal insufficiency His creatinine level has improved status post adjustment of his volume status and his renal medications. This was discussed with the patient with his daughter with respect to further evaluation with cardiac catheterization based on concerns of IV contrast related nephropathy. They were agreeable to this approach at this time. Monitor: The patient's case was discussed and reviewed with the [facility] emergency department staff and Dr. Sanchez of the [facility] staff. This note was generated using a voice recognition system and there may be incorrect words, spelling or punctuation that were not noted when reviewing the office note prior to saving. Procedure Criteria Procedure Type: Elective COVID Risk Discussion: The surgeon/proceduralist and patient have discussed in detail the risk of exposure to and/or potential harm posed by the COVID-19 virus with having a surgery/procedure at this time versus the risk of delaying the surgery/procedure. It is not possible to know either the risk of delaying the surgery or procedure or chance of getting an infection with perfect accuracy, but a joint decision was made between the patient and the surgeon/proceduralist to proceed at this time with the scheduled surgery/procedure as indicated on the consent form.
[2019-11-16] MEDS: Clopidogrel Bisulfate 75 MG Tablet PO (10:19)
[2019-11-16] MEDS: Amiodarone 200 MG Tablet PO ×2 (10:19→21:06)
[2019-11-16] MEDS: Isosorbide Mononitrate 30 MG Tablet PO ×2 (10:19→21:07)
[2019-11-16] MEDS: Carvedilol 3.125 MG TABLET 6.25 MG PO ×2 (10:20→21:06)
[2019-11-16] MEDS: Levothyroxine 50 MCG Tablet PO (10:20)
[2019-11-16] MEDS: Tamsulosin HCl 0.4 MG Capsule PO (18:21)
[2019-11-16] MEDS: predniSONE 5 MG Tablet PO (18:21)
[2019-11-16] MEDS: Hydroxychloroquine 200 MG Tablet PO (18:22)
[2019-11-16] MEDS: Finasteride 5 MG Tablet PO (18:22)
[2019-11-16] MEDS: Pravastatin 20 MG Tablet PO (18:22)
--- NOTE | 2019-11-16 18:40 | CL.D_ITS ---
Patient Name: KACEY LOPEZ Study Date: 11/16/2019 Performing: Yefri Caceres MD Ht: 71 inches 180 cm : 1935 Wt: 187.6 lbs 85 kg Age: 84 Gender: male BSA: 2.05 PROCEDURE(S) PERFORMED LA04-HQT/COR AS35-XIK, CORONARY OR GRAFT, INITIAL VESSEL CLINICAL PROFILE AND INDICATIONS Indications: Worsening Angina, LV Dysfunction, Cardiomyopathy Heart Failure: None Stress/Imaging Date: 11/03/2019Stress Test with SPECT MPI: Negative Angina Classification Anginal Classification w/in 2 Weeks: CCS III CAD Presentations: Unstable angina. CONCLUSIONS [place] Multivessel CAD RECOMMENDATIONS Risk factor modification Medical therapy Referred for LAD FFR DESCRIPTION OF PROCEDURE The patient arrived to the procedure lab. The risks and benefits of the procedure as well as a full d escription of our services here and current unavailability of surgical backup were fully explained to the patient and/or their significant other prior to the catheterization. The Timeout was completed, verifying the correct patient and procedure. The patient's procedural site was prepped and draped in the usual fashion. Local anesthetic was given subcutaneously to right radial region with Lidocaine 2% . Local anesthetic was given subcutaneously to right groin region with Lidocaine 2%. Using a modified Seldinger technique, arterial access was obtained via the right radial artery, a 6Fr sheath was inse rted., arterial access was obtained via the right femoral artery, a 4Fr sheath was inserted Left Cor onary Artery selective angiography was performed in multiple views using a 4 Fr. JL5 catheter. Right Coronary Artery selective angiography was then performed in multiple views using a 4 Fr. 3DRC catheter.The radial artery sheath was pulled and a TR Band was applied for hemostasis 11cc air. The femoral artery sheath was pulled and manual compression applied until hemostasis is achieved. CORONARY ANGIOGRAPHY DOMINANCE: Right Dominant LEFT HEART ASSESSMENT Left Ventricular Ejection Fraction: Not assessed LEFT MAIN: distal: eccentric: 25 % Stenosis LEFT ANTERIOR DESCENDING ARTERY: PROX LAD: Previously placed stent is patent with mild luminal irregularities MID LAD: Previously placed stent has an instent s/p DX: 50 % restenosis, Mild luminal irregularities DIAGONAL 2: Proximal - Previously placed stent is patent with mild luminal irregularities CIRCUMFLEX ARTERY: PROX CIRC: Mild calcification, eccentric: 25 % Stenosis, Previously placed stent is patent with mild luminal irregularities OM 1: Proximal - small caliber vessel: 25 % Stenosis OM 2: Mid - Mild luminal irregularities RIGHT CORONARY ARTERY: PROX RCA: diffuse: eccentric: 25 % Stenosis MID RCA: eccentric: 50 % Stenosis DISTAL RCA: diffuse: eccentric: 10 - 25 % Stenosis RT PDA: Proximal - Mild luminal irregularities COMPLICATIONS No Complications PROCEDURE MEDICATIONS Fentanyl 50 mcg IV Versed 1 mg IV Oxygen: 2 L/min via nasal cannula Adenosine drip for FFR 24.4 ml IV @ 11/16/2019 14:20:44 Heparin diluted in 23cc Heparinized saline. Patient given 10cc IA of this solution. 11/16/2019 12:45: 04 Heparin 6000 unit(s) IV 11/16/2019 13:51:14 Protamine 5 mg IV 11/16/2019 14:35:36 Verapamil 2.5mg, Ntg 100mcgs, 2000 units of Heparin diluted in 23cc Heparinized saline. Patient give n 10cc IA of this solution. 11/16/2019 12:45:04 SUMMARY OF HEMODYNAMIC DATA Time AIR REST ECG 12:31:40 AO 148/68 (102) SA 13:24:40 Signed By Yefri Caceres MD On 11/16/2019 18:39:09 Yefri Caceres MD
[2019-11-16] MEDS: Acetaminophen 325 MG Tablet 650 MG PO (21:07)
--- NOTE | 2019-11-16 21:30 | NURSING ---
Attempted to get patient up. Pt assisted to bathroom and up to hallway. Once in hallway, pt requested to return to room. Pt reported feeling weak and dizzy. Upon returning to bed, right groin site soft, C/D/I.
[2019-11-16 21:31] LABS: Bedside Glucose 107 mg/dL (70-110)
[2019-11-17] VITALS (13 sets, daily range): BP systolic 105–141; BP diastolic 51–80; PULSE 53–60; RESP 14–18; TEMP 36.6–37.4; O2SAT 96–99
[2019-11-17 05:58] LABS: Absolute Lymphocyte Count 0.55 X10^3/uL (0.83-4.51); Absolute Neutrophil Count 5.5 X10^3/uL (2.0-7.7); Basophil# 0.02 X10^3/uL; Basophil% 0.3 % (0-1); Eosinophil# 0.02 X10^3/uL; Eosinophils% 0.3 % (0-5); Hematocrit 31.7 % (40-54); Hemoglobin 10.3 g/dL (13.0-16.5); Lymphocyte # 0.55 X10^3/ul (4.0); Lymphocyte % 8.4 % (19-41); Mean Corp Hgb Conc 32.5 g/dL (32-36); Mean Corpuscular Hgb 31.9 pg (27.0-32.0); Mean Corpuscular Volume 98.1 fL (80-94); Mean Platelet Vol. 9.1 fl (6.2-12.0); Monocyte# 0.51 X10^3/uL; Monocyte% 7.8 % (0-10); NRBC Flagged by Analyzer 0 % (0-5); Neutrophil # 5.46 X10^3/uL (2.7-7.7); Neutrophil % 82.9 % (47-70); POSITIVE DIFFERENTIAL YES; Platelet Count 151 K/mm3 (150-450); RBC Distribution Width CV 14.6 % (11.6-14.6); RBC Distribution Width SD 52.5 fl (35.1-43.9); Red Blood Count 3.23 M/mm3 (4.6-6.2); White Blood Count 6.6 K/mm3 (4.4-11.0)
[2019-11-17 05:59] LABS: Differential Indicated SCAN CRITERIA MET
[2019-11-17] MEDS: Levothyroxine 50 MCG Tablet PO (06:13)
[2019-11-17 06:22] LABS: Anion Gap 4 (5-15); BUN 27 mg/dL (7-18); BUN/Creat Ratio 16.5 RATIO (10-20); Calcium,Total 8.8 mg/dL (8.5-10.1); Chloride 110 mmol/L (98-107); Creatinine, Serum 1.64 mg/dL (0.70-1.30); EST Glomerular Filtration Rate 43 mL/min (>60); Est Glom Filt Rate - Afr Amer 52 mL/min (>60); Estimated Creatinine Clearance 35.71 ml/min; Glucose 104 mg/dL (74-106); Magnesium 2.2 mg/dL (1.6-2.6); Potassium 3.8 mmol/L (3.5-5.1); Sodium Level 141 mmol/L (136-145)
[2019-11-17 06:26] LABS: Differential Comment SCANNED
--- NOTE | 2019-11-17 08:45 | PCM.PN.CARD ---
Subjectve: The patient is awake and alert. He denies any ongoing chest discomfort at this time. Objective: Vital Signs Temp Pulse Resp BP Pulse Ox 97.9 F 58 L 16 105/51 L 97 11/17/19 03:00 11/17/19 06:59 11/17/19 03:00 11/17/19 03:00 11/17/19 07:33 Oxygen Flow Rate (L/min) 2 Oxygen Delivery Method Nasal Cannula Weight: 186 lb 8.177 oz Body Mass Index (BMI) 25.9 Intake and Output for Last 24 Hours 11/15/19 11/16/19 11/17/19 23:59 23:59 23:59 Intake Total 1420.00 / 1420.00 0 / 0 Output Total 550 / 550 150 / 150 Balance 870.00 / 870.00 -150 / -150 General: Awake, Alert, Oriented x 3, Cooperative, No Acute Distress HEENT: Atraumatic, Normocephalic, PERRL, EOMI, Sclera Non Icteric Neck: Supple, Good ROM, No JVD Lungs: Clear to auscultation Cardiovascular: Regular Rhythm, Normal S1, Normal S2 Vascular: Normal Femoral Pulses, Normal Radial Pulses Abdomen: Bowel Sounds Present, Soft, - - Palpable abdominal aorta Extremities: No edema Neurological: No Focal Motor or Sensory Deficit Psych/Mental Status: Appropriate 11/16/19 09:34: Troponin I < 0.015 11/17/19 05:35: WBC 6.6, RBC 3.23 L, Hgb 10.3 L, Hct 31.7 L, MCV 98.1 H, MCH 31.9, MCHC 32.5, Plt Count 151, MPV 9.1, Immature Gran % (Auto) 0.300, Neut % (Auto) 82.9 H, Lymph % (Auto) 8.4 L, [place] % (Auto) 7.8, Eos % (Auto) 0.3, Baso % (Auto) 0.3, Absolute Neuts (auto) 5.5, Nucleated RBC % 0 11/17/19 05:35: Sodium 141, Potassium 3.8, Chloride 110 H, Carbon Dioxide 27.0, Anion Gap 4 L, BUN 27 H, Creatinine 1.64 H, Est GFR (MDRD) Af Amer 52 L, Est GFR (MDRD) Non-Af 43 L, BUN/Creatinine Ratio 16.5, Glucose 104, Calcium 8.8, Magnesium 2.2 Rhythm: Sinus rhythm Medical Necessity - Tobacco Use Smoking Status: Former smoker Assessment/Plan 1. Unstable angina The patient presents with symptoms concerning for accelerating/unstable angina. The patient has undergone further evaluation with diagnostic cardiac catheterization and subsequently LAD FFR. He did not require PCI. The plan is to continue medical management. 2. CAD status post PCI He does have a history of CAD/PCI superimposed upon his non-CAD related cardiomyopathy. Again he is undergone further evaluation with repeat cardiac catheterization and LAD FFR. His FFR was considered negative. He did not require additional revascularization therapy. He is going to continue medical management. 3. Cardiomyopathy He does have a history of a non-CAD related cardiomyopathy prior to the development of CAD requiring PCI. At the present time he will continue medical management further evaluation is noted. 4. PVT He has a history of ventricular dysrhythmias. He is status post medical therapy and ICD placement. 5. ICD He does have an ICD in place. He states it has not discharged. He will continue medical management. 6. Hyperlipidemia He will continue risk factor evaluation care as tolerated. 7. Hypertension He will continue monitoring his blood pressure with adjustment of his fluid status and his medications as needed. 8. Chronic renal insufficiency The patient's renal function is being followed. He will continue medical therapy with adjustment as needed. 9. Abdominal aortic aneurysm The patient does have an abdominal aortic aneurysm. It appears it was evaluated in August of this year via a request from the emergency department with a CT scan. It appears the report was forwarded to the patient's PCP office. The patient does not recall being contacted by his PCPs office regarding additional evaluation and care. At the present time it would be recommended that the patient be evaluated by peripheral vascular surgery for an opinion on his peripheral vasculature with respect to his abdominal aortic aneurysm and further evaluation/recommendations. The patient's case was discussed with Dr. Becerra. He did leave a message for the patient's PCP with respect to updating the PCP on the patient's ongoing evaluation and care including additional information regarding further evaluation and care of the patient's abdominal aortic aneurysm. This note was generated using a voice recognition system and there may be incorrect words, spelling or punctuation that were not noted when reviewing the office note prior to saving.
[2019-11-17 08:51] LABS: ACT Activated Clotting Time 180 sec (74-137)
[2019-11-17 08:51] LABS: ACT Activated Clotting Time 186 sec (74-137)
[2019-11-17 08:51] LABS: ACT Activated Clotting Time 186 sec (74-137)
--- NOTE | 2019-11-17 09:25 | NURSING ---
Addendum entered by Krystina See 11/17/19 13:29: Bed rest complete at 1320. Ambulated with no s/sx of bleeding. Assisted to chair. Original Note: Dressing to right femoral groin site removed. Observed old blood to dressing. Upon observing site, noted site was oozing. Manual pressure applied to site for 15 minutes. implementation lead Abida into assist. After 25 minutes of pressure oozing stopped. VS obtained and Dr Caceres notified. Per Dr Caceres keep sandbag on for 2 hours, bedrest for 4 hours, and restart site checks.
--- NOTE | 2019-11-17 09:46 | AAVD_ITS ---
Reason For Study: AAA Aorta Measurements Aorta Doppler Measurements Proximal aorta measures4.93 x 4.91cm. in cross- Peak systolic flow velocities within the proximal sectional axis. aorta measure 55.4 cm/sec. Proximal aorta measures4.90cm. in longitudinal Peak systolic flow velocities within the mid aorta axis. measure 93.5 cm/sec. Mid aorta measures7.58 x 7.50cm. in cross- Peak systolic flow velocities within the distal sectional axis. aorta measure 60.6 cm/sec. Mid aorta measures7.62cm. in longitudinal axis. Distal aorta measures4.90 x 4.84cm. in cross- sectional axis. Distal aorta measures4.84cm. in longitudinal axis. Left Iliac Artery Left iliac artery measures 0.97 x 0.95 cm. in the cross-sectional axis. Left iliac artery measures 0.89 cm. in the longitudinal axis. Peak systolic velocity in the left iliac artery measures 89.1 cm/sec. Right Iliac Artery Right iliac artery measures 1.63 x 1.60 cm. in the cross-sectional axis. Right iliac artery measures 1.60 cm. in the longitudinal axis. Peak systolic velocity in the right iliac artery measures 58.5 cm/sec. Procedure Aorta IVC Iliac vasculature or bypass grafts 15121. Prelim to [place]. Exam performed portable in patient room. Interpretation Summary Proximal abdominal aorta 4.9 x 4.9 cm Mid abdominal aorta 7.7 x 7 cm Distal abdominal aorta 4.9 x 4.8 cm Left common iliac 0.97 x 0.95 cm Right common iliac 1.63 x 1.6 cm Unusual plague proximal aorta with retrograde flow suggests possible aortic dissection Ordering Physician: Miguel Becerra Referring Physician: MD Miguel Pineda Performed By: Akosua Parekh RVT
--- NOTE | 2019-11-17 11:38 | PCM.DC ---
- Discharge Diagnoses Current Active Problems: Current Active and Chronic Problems (Last Reviewed 11/16/19 @ 12:[address] Dionisio Sanchez MD) Unstable angina (Acute) Chest pain (Acute) CAD (coronary artery disease) (Chronic) Mixed hyperlipidemia (Chronic) Essential hypertension (Chronic) Chronic renal failure, stage 3 (moderate) (Chronic) Diabetes mellitus type 2 in nonobese (Chronic) Cardiomyopathy (Chronic) You will use the following diet at home:: No restrictions Your food should be the consistency of: Regular Your liquids should be the consistency of: Regular/Thin Discharge Activity: Return to Normal Activity Weight Bearing Status: Full weight bearing Allergies/Adverse Reactions: Allergies atorvastatin [From Lipitor] Adverse Reaction (Verified 11/16/19 06:41) myalgia leflunomide [From Arava] Adverse Reaction (Verified 11/16/19 06:41) PROBLEMS WITH MY FEET simvastatin [From Zocor] Adverse Reaction (Verified 11/16/19 06:41) myalgia Medications to take at Discharge Aspirin 325 mg PO DAILY@199905/22/16 Colchicine 0.6 mg PO DAILY 05/22/16 Finasteride [Proscar] 5 mg PO DAILY 05/22/16 Levothyroxine [Synthroid] 50 mcg PO DAILY 05/22/16 Tamsulosin HCl [Flomax] 0.4 mg PO DAILY 05/22/16 nitroglycerin 0.4 mg sublingual tablet 0.4 mg SUBLINGUAL Q5-15M PRN #25 tab 11/16/18 Prednisone 5 mg PO DAILY #0 02/10/19 albuterol sulfate 2.5 mg INHALATION Q4H PRN 04/13/19 clopidogrel 75 mg tablet 75 mg PO DAILY #90 tab 04/19/19 Hydroxychloroquine [Plaquenil] 200 mg PO DAILY 05/29/19 Cholecalciferol (Vitamin D3) [Vitamin D3] 25 mcg PO DAILY 06/17/19 amiodarone 200 mg tablet 200 mg PO BID tab 08/02/19 tramadol 50 mg tablet 1 ea PO QHS 08/02/19 pravastatin 20 mg tablet 20 mg PO DAILY #90 tab 11/08/19 Carvedilol 6.25 mg PO BID 11/16/19 Isosorbide Mononitrate [Imdur] 30 mg PO BID #60 tab 11/17/19 The following prescriptions were given: Isosorbide Mononitrate [Imdur] 30 mg PO BID #60 tab Transmission Status: Pending to [facility] Primary Care Physician: Miguel Pineda MD [Primary Care Provider] - Please follow up with your Primary Care Physician in: in the next 1-2 weeks for followup on your aneurysm Test Results: Test results from this visit will be discussed in further detail at your follow-up appointment, if applicable. Please Follow Up With: Yefri Caceres MD When: as directed-call office if you are not contacted for followup appointment
[2019-11-17] MEDS: Amiodarone 200 MG Tablet PO (12:13)
[2019-11-17] MEDS: Clopidogrel Bisulfate 75 MG Tablet PO (12:13)
[2019-11-17] MEDS: Isosorbide Mononitrate 30 MG Tablet PO (12:13)
[2019-11-17] MEDS: Carvedilol 3.125 MG TABLET 6.25 MG PO (12:13)
--- NOTE | 2019-11-17 12:32 | PHA.DC.MR ---
Pharmacy Service has performed discharge medication reconciliation for this patient. The patient's discharge medication list was reviewed for discrepancies and discrepancies were resolved. Home Medications Aspirin 325 mg PO DAILY@199905/22/16 Colchicine 0.6 mg PO DAILY 05/22/16 Finasteride [Proscar] 5 mg PO DAILY 05/22/16 Levothyroxine [Synthroid] 50 mcg PO DAILY 05/22/16 Tamsulosin HCl [Flomax] 0.4 mg PO DAILY 05/22/16 nitroglycerin 0.4 mg sublingual tablet 0.4 mg SUBLINGUAL Q5-15M PRN #25 tab 11/16/18 Prednisone 5 mg PO DAILY #0 02/10/19 albuterol sulfate 2.5 mg INHALATION Q4H PRN 04/13/19 clopidogrel 75 mg tablet 75 mg PO DAILY #90 tab 04/19/19 Hydroxychloroquine [Plaquenil] 200 mg PO DAILY 05/29/19 Cholecalciferol (Vitamin D3) [Vitamin D3] 25 mcg PO DAILY 06/17/19 amiodarone 200 mg tablet 200 mg PO BID tab 08/02/19 tramadol 50 mg tablet 1 ea PO QHS 08/02/19 pravastatin 20 mg tablet 20 mg PO DAILY #90 tab 11/08/19 Carvedilol 6.25 mg PO BID 11/16/19 Isosorbide Mononitrate [Imdur] 30 mg PO BID #60 tab 11/17/19
[2019-11-17] MEDS: Hydroxychloroquine 200 MG Tablet PO (12:48)
[2019-11-17] MEDS: predniSONE 5 MG Tablet PO (12:48)
[2019-11-17] MEDS: Pravastatin 20 MG Tablet PO (12:49)
[2019-11-17] MEDS: Finasteride 5 MG Tablet PO (13:57)
--- NOTE | 2019-11-18 17:20 | CL.I_ITS ---
Patient Name: KACEY LOPEZ Study Date: 11/16/2019 Performing: Jani Tolliver MD Ht: 71 inches 180 cm : 1935 Wt: 187.6 lbs 85 kg Age: 84 Gender: male BSA: 2.05 PROCEDURE(S) PERFORMED [id number], CORONARY OR GRAFT, INITIAL VESSEL CLINICAL PROFILE AND CO-MORBIDITIES Indications: Worsening Angina, LV Dysfunction, Cardiomyopathy Heart Failure: None Stress/Imaging Date: 11/03/2019 Stress Test with SPECT MPI: Negative Angina Classification Anginal Classification w/in 2 Weeks: CCS III CAD Presentations: Unstable angina. CONCLUSIONS FFR in the LAD was 0.88 which is consistent with stenoses that can be treated medically at this time RECOMMENDATIONS DESCRIPTION OF PROCEDURE The patient arrived to the procedure lab. The risks and benefits of the procedure as well as a full d escription of our services here and current unavailability of surgical backup were fully explained to the patient and/or their significant other prior to the catheterization. The Timeout was completed, verifying the correct patient and procedure. The patient's procedural site was prepped and draped in the usual fashion. Local anesthetic was given subcutaneously to right radial region with Lidocaine 2% . Local anesthetic was given subcutaneously to right groin region with Lidocaine 2% Using a modified Seldinger technique,arterial access was obtained via the right radial artery, a 6Fr sheath was insert ed., arterial access was obtained via the right femoral artery, a 4Fr sheath was inserted Left Oilva ry Artery selective angiography was performed in multiple views using a 4 Fr. JL5 catheter. Right Cor onary Artery selective angiography was then performed in multiple views using a 4 Fr. 3DRC catheter.The images were reviewed and options discussed. A decision was then made to proceed with an Intervention, IVUS or other adjunct procedure. Arterial sheath was exchanged for a 6 Fr 45cm Sheath. XB 3.5 Guide catheter was inserted and enga ged into the LCA. XB 4 Guide catheter was inserted and engaged into the LCA. The FFR/iFR wire was ins erted. Adenosine was then given per protocol. FFR Ratio Baseline: 0.92 FFR Ratio post Adenosine: 0.88 The FFR/iFR wire was then removed. The radial artery sheath was pulled and a TR Band was applied f or hemostasis 11cc air. The femoral artery sheath was pulled and manual compression applied until hem ostasis is achieved. INTERVENTION INFORMATION LESION SITE: LAD (Proximal) Lesion Devices: [employer] ( Formerly [employer]) Coronary FFR Wire Cardinal 6 Fr XB3.5 100cm Guide Catheter Cardinal 6 Fr XB4.0 100cm Guide Catheter COMPLICATIONS No Complications PROCEDURE MEDICATIONS Fentanyl 50 mcg IV Versed 1 mg IV Oxygen: 2 L/min via nasal cannula Adenosine drip for FFR 24.4 ml IV @ 11/16/2019 14:20:44 Heparin diluted in 23cc Heparinized saline. Patient given 10cc IA of this solution. 11/16/2019 12:45: 04 Heparin 6000 unit(s) IV 11/16/2019 13:51:14 Protamine 5 mg IV 11/16/2019 14:35:36 Verapamil 2.5mg, Ntg 100mcgs, 2000 units of Heparin diluted in 23cc Heparinized saline. Patient give n 10cc IA of this solution. 11/16/2019 12:45:04 SUMMARY OF HEMODYNAMIC DATA Time AIR REST ECG 12:31:40 AO 148/68 (102) SA 13:24:40 Signed By Jani Tolliver MD On 11/18/2019 17:19:48 Jani Tolliver MD
--- NOTE | 2019-11-19 08:37 | PCM.DC.SUM ---
Discharge Date and Diagnosis Date of Admission: 11/16/19 Date of Discharge: 11/17/19 - Primary Discharge Diagnosis Acute Problems: #1 unstable angina #2 coronary artery disease #3 abdominal aortic aneurysm #4 cognitive impairment-etiology unclear #5 nonischemic cardiomyopathy #6 hyperlipidemia #7 essential hypertension #8 stage III chronic kidney disease #9 anemia-etiology unknown - Secondary Discharge Diagnosis Chronic Problems: Chronic Problems (Last Updated 11/17/19 @ 16:50 by Migdalia Fisher) CAD (coronary artery disease) (Chronic) 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) History of appendectomy (Chronic) Presence of coronary angioplasty implant and graft (Chronic ~09/23/06) PTCA and stenting of the LAD and diagonal 09/23/2006 Abnormal echocardiogram (Chronic) Mixed hyperlipidemia (Chronic) Atherosclerotic heart disease of [place] coronary artery without angina pectoris (Chronic) PTCA and stenting of the LAD and diagonal 09/23/2006 Essential hypertension (Chronic) Mixed sleep apnea (Chronic) BiPAP 17/11 mm of water with a backup rate of 12 Hypersomnolence disorder (Chronic) Dilated cardiomyopathy (Chronic) 15% EF Paroxysmal ventricular tachycardia (Chronic) Abnormal result of cardiovascular function study, unspecified (Chronic) 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) Implant: 06/2000; Generator change: 03/17/2008 Hypothyroidism, iatrogenic (Chronic) 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 Patient had a history of coronary artery disease and nonischemic cardiomyopathy. Patient had recently been admitted to the hospital with concerns of angina and had a negative cardiac stress test and was discharged home. Work-up included an EKG which showed no acute ischemic changes, troponin was unremarkable, creatinine was elevated in keeping with the patient's known history of chronic kidney disease, patient's chest x-ray was unremarkable. Patient was placed into observation status on PCU for unstable angina, he was seen in consultation by cardiology and underwent a cardiac catheterization, in addition an FFR was performed, based on these studies, it was concluded the patient could be treated medically. It was noted on the patient's past medical record that was reviewed by cardiology that the patient had an abdominal aortic aneurysm which was over 7 cm in diameter, patient denied knowing that he had this aneurysm and he underwent an ultrasound of the abdomen while in the hospital which showed no change in the diameter of the aneurysm since August 2019. I contacted the patient's PCP who stated the patient already had follow-up in September 2019 with a vascular surgeon in [place] (Dr. Hernandez)-I then discussed this with the patient and the patient denied that he remembered ever seeing Dr. Hernandez and then stated that he was having memory issues. I advised the patient to follow-up with his PCP and discussed this. On 11/17/2019, patient was seen and examined: On examination he appeared in good health and spirits. Vital signs as documented. Skin warm and dry and without overt rashes. Neck without JVD, neck was supple, trachea midline, thyroid was normal. Lungs clear bilaterally, normal air movement was noted. Heart exam notable for regular rhythm, normal sounds and absence of murmurs, rubs or gallops. Abdomen unremarkable and without evidence of organomegaly, masses, or abdominal aortic enlargement. Bowel sounds are present, abdomen is not distended. Extremities nonedematous, no cyanosis was noted, no clubbing was noted. Neuro: Cranial nerves II through XII are grossly intact, no focal motor deficits were noted, sensation to light touch and pinprick intact, motor exam 5/5 throughout. Psych: Patient is alert and oriented x3, he does not appear anxious or depressed, he does not appear agitated. Patient was discharged home in stable condition on 11/17/2019, patient's medications were adjusted by cardiology prior to his discharge. - Physical Exam Vitals/I&O's: Vital Signs Temp Pulse Resp BP Pulse Ox 98.3 F 60 16 130/66 H 96 11/17/19 13:05 11/17/19 13:05 11/17/19 13:05 11/17/19 13:05 11/17/19 13:05 Oxygen Flow Rate (L/min) 2 Oxygen Delivery Method Room Air Weight: 84.6 kg Body Mass Index (BMI) 25.9 Intake and Output for Last 24 Hours 11/17/19 11/18/19 11/19/19 23:59 23:59 23:59 Intake Total 784.17 / 784.17 Output Total 150 / 150 Balance 634.17 / 634.17 Discharge Activity: Return to Normal Activity Weight Bearing Status: Full weight bearing Home Medications: Medications to take at Discharge Aspirin 325 mg PO DAILY@199905/22/16 Colchicine 0.6 mg PO DAILY 05/22/16 Finasteride [Proscar] 5 mg PO DAILY 05/22/16 Levothyroxine [Synthroid] 50 mcg PO DAILY 05/22/16 Tamsulosin HCl [Flomax] 0.4 mg PO DAILY 05/22/16 nitroglycerin 0.4 mg sublingual tablet 0.4 mg SUBLINGUAL Q5-15M PRN #25 tab 11/16/18 Prednisone 5 mg PO DAILY #0 02/10/19 albuterol sulfate 2.5 mg INHALATION Q4H PRN 04/13/19 clopidogrel 75 mg tablet 75 mg PO DAILY #90 tab 04/19/19 Hydroxychloroquine [Plaquenil] 200 mg PO DAILY 05/29/19 Cholecalciferol (Vitamin D3) [Vitamin D3] 25 mcg PO DAILY 06/17/19 amiodarone 200 mg tablet 200 mg PO BID tab 08/02/19 tramadol 50 mg tablet 1 ea PO QHS 08/02/19 pravastatin 20 mg tablet 20 mg PO DAILY #90 tab 11/08/19 Carvedilol 6.25 mg PO BID 11/16/19 Isosorbide Mononitrate [Imdur] 30 mg PO BID #60 tab 11/17/19 Following Prescriptions Were Given to Patient: Isosorbide Mononitrate [Imdur] 30 mg PO BID #60 tab Transmission Status: Received by [facility] [facility] Primary Care Physician: Miguel Pineda MD [Primary Care Provider] - Please follow up with your Primary Care Physician in: in the next 1-2 weeks for followup on your aneurysm Please Follow Up With: Yefri Caceres MD When: as directed-call office if you are not contacted for followup appointment Disposition: Home Minutes spent on discharge:: 30 Patient Condition:: Stable Medical Necessity - Tobacco Use Smoking Status: Former smoker Meaningful Use Info Meaningful Use Diagnoses (Choose all that apply): None applicable OBSV E&M: 91587 Observation care discharge
== END 2019-11-17 11:40 | disposition home or self-care (01) ==
LOC: ED 07:47 → PCU 08:42
PROVIDERS: Emergency Medicine; Admitting Provider Internal Medicine; Emergency Provider Emergency Medicine; PCP Family Medicine; Visit Provider Internal Medicine
DX: I25.110 Atherosclerotic heart disease of native coronary artery with unstable angina pectoris (principal); R41.89 Other symptoms and signs involving cognitive functions and awareness; E78.2 Mixed hyperlipidemia; Z23 Encounter for immunization; I13.0 Hypertensive heart and chronic kidney disease with heart failure and stage 1 through stage 4 chronic kidney disease, or unspecified chronic kidney disease; E11.22 Type 2 diabetes mellitus with diabetic chronic kidney disease; R93.1 Abnormal findings on diagnostic imaging of heart and coronary circulation; I71.4 Abdominal aortic aneurysm, without rupture; E11.51 Type 2 diabetes mellitus with diabetic peripheral angiopathy without gangrene; N18.3 Chronic kidney disease, stage 3 (moderate); G47.39 Other sleep apnea; I42.0 Dilated cardiomyopathy; E03.2 Hypothyroidism due to medicaments and other exogenous substances; I50.42 Chronic combined systolic (congestive) and diastolic (congestive) heart failure; N40.0 Benign prostatic hyperplasia without lower urinary tract symptoms; M06.4 Inflammatory polyarthropathy; I25.2 Old myocardial infarction; I42.8 Other cardiomyopathies; I44.0 Atrioventricular block, first degree; I47.2 Ventricular tachycardia; R00.1 Bradycardia, unspecified; Z79.899 Other long term (current) drug therapy; Z79.82 Long term (current) use of aspirin; Z95.810 Presence of automatic (implantable) cardiac defibrillator; Z87.891 Personal history of nicotine dependence; Z95.5 Presence of coronary angioplasty implant and graft
CPT/HCPCS: 36415; 71045; 80048; 82962; 83735; 84484; 85025; 85347; 93005; 93454; 93571; 93978; 99152; 99153; 99218; 99284; G0008; J0153; J7030; Q9967; 90686; A4216; C1769; C1887; C1894; G0378

== ENCOUNTER → 2019-12-01 12:19 | Outpatient (CLI) | payer MEDICARE, OTHER, SELFPAY ==
[2019-11-16 08:49] VITALS: BMI 25.9
[2019-12-01 13:51] LABS: Anion Gap 5 (5-15); BUN 34 mg/dL (7-18); BUN/Creat Ratio 15.9 RATIO (10-20); Calcium,Total 9.2 mg/dL (8.5-10.1); Chloride 106 mmol/L (98-107); Creatinine, Serum 2.14 mg/dL (0.70-1.30); EST Glomerular Filtration Rate 31 mL/min (>60); Est Glom Filt Rate - Afr Amer 38 mL/min (>60); Glucose 100 mg/dL (74-106); Phosphorus 2.9 mg/dL (2.5-4.9); Sodium Level 142 mmol/L (136-145)
[2019-12-01 13:52] LABS: PTHIN 122.9 pg/mL (18.4-80.1)
[2019-12-01 13:56] LABS: Vitamin D,25 Hydroxy 31.4 ng/mL
== END ==
PROVIDERS: PCP Family Medicine; Referring Provider Internal Medicine; Visit Provider Internal Medicine
DX: N18.30 Chronic kidney disease, stage 3 unspecified (principal); N25.81 Secondary hyperparathyroidism of renal origin; E55.9 Vitamin D deficiency, unspecified
CPT/HCPCS: 36415; 80048; 82306; 83970; 84100

== ENCOUNTER → 2019-12-17 09:18 | Outpatient (CLI) | payer MEDICARE, OTHER, SELFPAY ==
[2019-11-16 08:49] VITALS: BMI 25.9
--- NOTE | 2019-12-17 09:20 | US_ITS ---
STUDY: RENAL ULTRASOUND - COMPLETE REASON FOR EXAM: Male, 84 years old. CKD STAGE III TECHNIQUE: Ultrasound evaluation of the kidneys was performed with real-time and static segovia-scale imaging. COMPARISON: None. FINDINGS: RIGHT KIDNEY: Normal location of the right kidney, which is normal in size. The right kidney measures 11.0 cm. Increased echogenicity renal cortex consistent with chronic medical renal disease. The renal cortex measures 1.3 cm. 4.0 cm cyst in the upper pole the right kidney. There are no right renal calculi. There is no right hydronephrosis. DISTAL RIGHT URETER: There is non-visualization of the distal right ureter. There is no demonstrated right ureterovesical junction calculus. There is a visualized right ureteral jet. LEFT KIDNEY: Normal location of the left kidney, which is normal in size. The left kidney measures 9.3 cm. Increased echogenicity renal cortex consistent with chronic medical renal disease. The renal cortex measures 1.0 cm. There is no left renal mass or cyst. There are no left renal calculi. There is no left hydronephrosis. DISTAL LEFT URETER: There is non-visualization of the distal left ureter. There is no demonstrated left ureterovesical junction calculus. There is a visualized left ureteral jet. BLADDER: The distended urinary bladder has a volume of ml. The empty urinary bladder has a volume of ml. There is a normal wall thickness of the distended urinary bladder. There is no demonstrated mass within the urinary bladder. There are no demonstrated bladder calculi. US/Kidney and Bladder IMPRESSION: Chronic medical renal disease without hydronephrosis to suggest obstruction. Electronically Signed: Suresh Matthews MD at 10:07 EDT Tel , Service support ,
--- NOTE | 2019-12-17 09:52 | NURSING ---
PT HERE FOR KIDNEY ULTRASOUND. THIS RN CALLED TO ROOM TO RE-DRESS RT FOREARM SKIN TEAR. PT FELL AT [facility] THREE DAYS AGO AND WOUND CONTINUES TO SEEP. PT IS ON ANTICOAGULANT, PER HIS REPORT. LARGE BANDAID REMOVED. SURROUNDING SKIN CLEANED WITH ALCOHOL SWABS AND A WET WASHCLOTH. TELFA APPLIED. PRESSURE ADDED WITH 4X4S FOLDED, WRAPPED WITH KERLIX. PT WALKED TO WAITING ROOM. DAUGHTER UPDATED.
== END ==
PROVIDERS: PCP Family Medicine; Referring Provider Internal Medicine; Visit Provider Internal Medicine
DX: N18.30 Chronic kidney disease, stage 3 unspecified (principal)
CPT/HCPCS: 76770

== ENCOUNTER → 2019-12-23 11:20 | Outpatient (CLI) | payer MEDICARE, OTHER, SELFPAY ==
[2019-11-16 08:49] VITALS: BMI 25.9
[2019-12-23 12:35] LABS: Hematocrit 40.1 % (40-54); Hemoglobin 12.3 g/dL (13.0-16.5)
[2019-12-23 13:09] LABS: ALB/GLOB Ratio 0.8 RATIO (0.9-2.4); AST(SGOT) 30 U/L (15-37); Alanine Aminotransfer ALT/SGPT 29 U/L (16-61); Albumin, Serum 3.3 g/dL (3.2-5.0); Alkaline Phosphatase 100 U/L (45-117); Anion Gap 6 (5-15); BUN 30 mg/dL (7-18); BUN/Creat Ratio 11.5 RATIO (10-20); Calcium,Total 9.3 mg/dL (8.5-10.1); Chloride 105 mmol/L (98-107); Creatinine, Serum 2.62 mg/dL (0.70-1.30); EST Glomerular Filtration Rate 25 mL/min (>60); Est Glom Filt Rate - Afr Amer 30 mL/min (>60); Free T3 1.7 pg/mL (2.18-3.98); Glucose 109 mg/dL (74-106); Potassium 4.1 mmol/L (3.5-5.1); Protein, Total 7.3 g/dL (6.4-8.2); Sodium Level 141 mmol/L (136-145); T4 Free Direct 1.59 ng/dL (0.76-1.46); Thyroid Stim Hormone (TSH) 5.66 uIU/mL (0.358-3.74)
== END ==
PROVIDERS: PCP Family Medicine; Referring Provider Physician Assistant Medical; Visit Provider Physician Assistant Medical
DX: R53.83 Other fatigue (principal)
CPT/HCPCS: 36415; 80053; 84439; 84443; 84481; 85014; 85018

== ENCOUNTER 2020-02-20 10:54 | Inpatient (IN) | payer MEDICARE, OTHER, SELFPAY ==
[2020-01-14 10:51] VITALS: BMI 25.6
[2020-02-20] VITALS (8 sets, daily range): BP systolic 83–137; BP diastolic 57–82; PULSE 60–71; RESP 13–18; TEMP 35.6–36.7; O2SAT 96–100; BMI 25.9; BMI 24.5; BMI 24.6
--- NOTE | 2020-02-20 11:24 | RAD_ITS ---
STUDY: X-RAY CHEST REASON FOR EXAM: Male, 84 years old. chest pain started yesterday TECHNIQUE: Single AP portable view of the chest. COMPARISON: 11/16/2019 FINDINGS: There is hyperinflation of the lungs consistent with chronic obstructive lung disease (COPD). Stable mild scarring in the lung bases. No acute airspace disease. There is mild cardiac enlargement. Stable left chest wall pacing device. Normal mediastinum and bro[place]. Normal visualized pulmonary arteries. Normal visualized aortic arch and descending thoracic aorta. Normal visualized thoracic spine. Normal visualized ribs, clavicles, and shoulders. There is no demonstrated abnormality of the visualized soft tissue structures of the upper abdomen. RAD/Chest 1 View (Portable) IMPRESSION: COPD without acute findings Electronically Signed: Gume Encarnacion DO at 11:55 EST Tel , Service support ,
--- NOTE | 2020-02-20 11:24 | EKG12_ITS ---
Test Reason : Blood Pressure : / mmHG Vent. Rate : 061 BPM Atrial Rate : 061 BPM P-R Int : 162 ms QRS Dur : 128 ms QT Int : 390 ms P-R-T Axes : -03 -22 175 degrees QTc Int : 392 ms Normal sinus rhythm Non-specific intra-ventricular conduction block T wave abnormality, consider lateral ischemia Abnormal ECG Confirmed by ADELA GALLARDO, CINDI ([id number]), editor magazine SHE BURLESON ([id number]) on 02/24/2020 10:14:48 AM Referred By: Confirmed By:BENNIE CHAPMAN MD
--- NOTE | 2020-02-20 11:30 | ED.DCSUM_ITS ---
History of Present Illness Chief Complaint: Chest Pain Informant: Patient Narrative: Patient is an 84-year-old male with a past medical history of CAD with stent placed who presents to the emergency department for generalized weakness. He states that over the past 3 weeks it has been progressively getting worse. He Think he is going to get better but it has not. He has not talked to his PCP about this. Denies ever having this happen before. He gets around with a walker but has to stop due to the weakness very frequently. He does occasionally get left-sided chest pain. He was seen in the hospital for this a few months prior. He is currently denying any chest pain or shortness of breath at this time. States he has not had much of an appetite and has been losing weight. He denies any change in bowel movements. No urinary symptoms. No nausea or vomiting. He denies any abdominal pain or back pain. No fevers or chills. He has not been coughing. Past Medical History - Allergies and Home Meds Allergies/Adverse Reactions: Allergies atorvastatin [From Lipitor] Adverse Reaction (Verified 02/20/20 10:54) myalgia leflunomide [From Arava] Adverse Reaction (Verified 02/20/20 10:54) PROBLEMS WITH MY FEET simvastatin [From Zocor] Adverse Reaction (Verified 02/20/20 10:54) myalgia Primary Care Physician: Miguel Pineda MD [Primary Care Provider] - Prior records reviewed: Yes Surgical History: angioplasty, appendectomy, pacemaker implantation, - - AICD, appendectomy, PCI. Smoking Status: Former smoker - Family History Paternal Family History: Family History (Last Reviewed 01/14/20 @ 10:56 by Migdalia Fisher) Mother Alzheimers disease Brother Cancer Brother Hypertension Brother CAD (coronary artery disease) Sister CAD (coronary artery disease) Sister Breast cancer Family History: Reports: Pulmonary Disease - emphysema, s/p lobectomy Maternal Family History: Family History (Last Reviewed 01/14/20 @ 10:56 by Migdalia Fisher) Mother Alzheimers disease Brother Cancer Brother Hypertension Brother CAD (coronary artery disease) Sister CAD (coronary artery disease) Sister Breast cancer Family History: Reports: Dementia, Heart Disease Sibling Family History: Family History (Last Reviewed 01/14/20 @ 10:56 by Migdalia Fisher) Mother Alzheimers disease Brother Cancer Brother Hypertension Brother CAD (coronary artery disease) Sister CAD (coronary artery disease) Sister Breast cancer Family History: Reports: Heart Disease Offspring Family History: Family History (Last Reviewed 01/14/20 @ 10:56 by Migdalia Fisher) Mother Alzheimers disease Brother Cancer Brother Hypertension Brother CAD (coronary artery disease) Sister CAD (coronary artery disease) Sister Breast cancer Family History: Reports: No pertinent history Review of Systems All systems negative except as indicated General: Reports: Malaise. Denies: Chills, Fever, Sweats Eyes: Denies: Visual changes - bilaterally, Diplopia ENT: Denies: Rhinorrhea, Sore throat Cardiovascular: Reports: Chest pain - Intermittent, currently resolved. Denies: Palpitations Respiratory: Denies: Dyspnea, Cough, Dyspnea on exertion Gastrointestinal: Denies: Abdominal pain, Nausea, Vomiting, Diarrhea, Melena Genitourinary: Denies: Dysuria, Hematuria, Frequency Musculoskeletal: Denies: Back pain, Extremity Pain Skin: Denies: Rash, Wounds Neurological: Reports: Weakness - Generalized. Denies: Headache, Numbness Physical Exam Vital Signs/Narrative: Vital Signs Temp Pulse Resp BP Pulse Ox 02/20/20 10:55 97.8 F 62 13 99/63 96 Inital Vital Signs reviewed: Yes General: Well nourished, Well developed, No Acute Distress Head: Normocephalic, Atraumatic Eyes: Perrl, EOMI ENT: Moist mucous membranes, No rhinorrhea Neck: Supple, Nontender Cardiovascular: Regular rate, Regular rhythm, No murmurs Respiratory: No distress, CTA bilaterally, Chest nontender Abdomen: Soft, Nontender, Nondistended, Normal bowel sounds Back: Nontender, Normal Inspection Extremities: Nontender, No edema. Negative for: Calf Tenderness Skin: Normal color, No rash Neurological: Alert, Cranial nerves II-XII grossly intact, Normal Strength, Normal Sensation Psychological: Normal affect, Normal Mood Diagnostic/Tx/Re-eval - EKG Initial EKG Interpretation: - - Rate of 61 bpm and a normal sinus rhythm. Prolonged QRS of 128. Left axis deviation. No significant ST elevations or depressions. There are some nonspecific T wave abnormalities in the lateral leads. - Medical Decision Making Patient presents to the ED for generalized weakness and also chest pain. His symptoms have been present for the past few weeks. He did have a cardiac cath performed in October of this year which did show stenosis but they did not recommend any intervention but only medical management. His lab work performed today revealed a negative troponin. He does have an elevated creatinine that is at his baseline. Otherwise no significant acute abnormalities. Patient is very weak and has a difficult time standing up. His orthostatics were positive. Will bring him into the hospital for further evaluation and management. Will likely need rehab. His chest pain was discussed with the hospitalist and they do not feel that he is going to get any intervention as this was the plan last time he had the catheterization done. Patient is agreeable to staying in the hospital at this time. He was given a few small bolus doses of normal saline given his significant CHF. ED Disposition - Plan for ED Patient: Disposition: Acute Care Hospital [facility] Diagnosis: Orthostatic hypotension, Generalized weakness, Anginal pain Referrals: Miguel Pineda MD [Primary Care Provider] -
[2020-02-20 11:38] LABS: Absolute Lymphocyte Count 0.88 X10^3/uL (0.83-4.51); Absolute Neutrophil Count 3.4 X10^3/uL (2.0-7.7); Basophil# 0.04 X10^3/uL; Basophil% 0.8 % (0-1); Eosinophil# 0.21 X10^3/uL; Eosinophils% 4.2 % (0-5); Hemoglobin 12.7 g/dL (13.0-16.5); Lymphocyte # 0.88 X10^3/ul (4.0); Lymphocyte % 17.6 % (19-41); Mean Corp Hgb Conc 31.8 g/dL (32-36); Mean Corpuscular Hgb 31.4 pg (27.0-32.0); Mean Corpuscular Volume 98.8 fL (80-94); Mean Platelet Vol. 9.2 fl (6.2-12.0); Monocyte# 0.48 X10^3/uL; Monocyte% 9.6 % (0-10); NRBC Flagged by Analyzer 0 % (0-5); Neutrophil # 3.36 X10^3/uL (2.7-7.7); Neutrophil % 67.4 % (47-70); Platelet Count 147 K/mm3 (150-450); RBC Distribution Width CV 15.4 % (11.6-14.6); RBC Distribution Width SD 55.3 fl (35.1-43.9); Red Blood Count 4.05 M/mm3 (4.6-6.2)
[2020-02-20 11:58] LABS: Anion Gap 6 (5-15); BUN 19 mg/dL (7-18); BUN/Creat Ratio 8.8 RATIO (10-20); Calcium,Total 8.9 mg/dL (8.5-10.1); Chloride 105 mmol/L (98-107); Creatinine, Serum 2.16 mg/dL (0.70-1.30); EST Glomerular Filtration Rate 31 mL/min (>60); Est Glom Filt Rate - Afr Amer 38 mL/min (>60); Estimated Creatinine Clearance 27.11 ml/min; Glucose 80 mg/dL (74-106); Magnesium 2.1 mg/dL (1.6-2.6); Sodium Level 139 mmol/L (136-145); Thyroid Stim Hormone (TSH) 5.95 uIU/mL (0.358-3.74)
--- NOTE | 2020-02-20 15:39 | NURSING ---
upon arrival to unit, 500 cc bag of NS empty and locked off @ [id number]
--- NOTE | 2020-02-20 16:03 | PCM.HP.STD ---
Problem List (1) Generalized weakness Status: Acute (2) Chest pain Status: Acute Qualifiers: Chest pain type: unspecified Qualified Code(s): R07.9 - Chest pain, unspecified History of Present Illness Date of Admission: 02/20/20 Chief Complaint: Generalized weakness, chest pain The patient is a 84 year old M who was seen in the emergency room at [facility] with complaints of chest pain, patient is a poor informant, his narrative changed several times in the emergency room during the time he was there, he told this examiner that he did not currently have chest pain, he had told the emergency room doctors prior to my examination that he still had some chest pain. Patient had been admitted here in October 2019 and had undergone a cardiac catheterization, there was a fractional flow reserve test done during the catheterization and it was determined that the patient could be treated with medical management. During that admission, it had become evident that patient was having some cognitive difficulties, he does not have a defined diagnosis of dementia. Patient told the emergency room physician had chest pain yesterday-when I talked to his by phone today she denied that he even told her he had chest pain yesterday. Work-up in the ER includes an EKG which showed a paced rhythm, cardiac enzymes were unremarkable, creatinine was elevated at 2.16, CBC was remarkable for hemoglobin of 12.7. Patient's chest x-ray showed COPD without acute findings. Patient's TSH was elevated at 5.95. Patient will be placed into observation status for generalized debility and hypotension, I will repeat 1 cardiac enzyme this evening-I think it is unlikely patient had a non-STEMI.. I will administer fluids due to hypotension and reevaluate the patient tomorrow. PT and OT will need to see the patient Past Medical History Past Medical History (Chronic Problems): Chronic Problems (Last Reviewed 01/14/20 @ 10:56 by Migdalia Fisher) Presence of stent in coronary artery (Chronic ~09/23/06) PTCA and stenting of the LAD and diagonal 09/23/2006 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) Abnormal echocardiogram (Chronic) Mixed hyperlipidemia (Chronic) Atherosclerotic heart disease of [place] coronary artery without angina pectoris (Chronic) PTCA and stenting of the LAD and diagonal 09/23/2006 Essential hypertension (Chronic) Mixed sleep apnea (Chronic) BiPAP 17/11 mm of water with a backup rate of 12 Hypersomnolence disorder (Chronic) Dilated cardiomyopathy (Chronic) 15% EF Paroxysmal ventricular tachycardia (Chronic) Abnormal result of cardiovascular function study, unspecified (Chronic) 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) Implant: 06/2000; Generator change: 03/17/2008 Hypothyroidism, iatrogenic (Chronic) 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) Chronic renal failure, stage 3 (moderate) (Chronic) Diabetes mellitus type 2 in nonobese (Chronic) Sustained ventricular tachycardia (Chronic) Hypothyroidism (Chronic) Cardiomyopathy (Chronic) Medical History: Medical History (Last Reviewed 01/14/20 @ 10:56 by Migdalia Fisher) Abnormal echocardiogram (Chronic) R93.1 Mixed hyperlipidemia (Chronic) E78.2 Atherosclerotic heart disease of [place] coronary artery without angina pectoris (Chronic) I25.10 PTCA and stenting of the LAD and diagonal 09/23/2006 Essential hypertension (Chronic) I10 Dilated cardiomyopathy (Chronic) I42.0 15% EF Paroxysmal ventricular tachycardia (Chronic) I47.2 Abnormal result of cardiovascular function study, unspecified (Chronic) R94.30 Hypothyroidism, iatrogenic (Chronic) E03.2 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) I70.219 Chronic renal failure, stage 3 (moderate) (Chronic) N18.3 Diabetes mellitus type 2 in nonobese (Chronic) E11.9 Sustained ventricular tachycardia (Chronic) I47.2 Hypothyroidism (Chronic) E03.9 Cardiomyopathy (Chronic) I42.9 Fatigue (Resolved) R53.83 History of left heart catheterization (LHC) Onset Date: ~11/16/19 Z98.890 1- Per Cath 11/16/19: LEFT MAIN: distal: eccentric: 25 % Stenosis; LEFT ANTERIOR DESCENDING ARTERY: PROX LAD: Previously placed stent is patent with mild luminal irregularities; MID LAD: Previously placed stent has an instent s/p DX: 50 % restenosis, Mild luminal irregularities; DIAGONAL 2: Proximal - Previously placed stent is patent with mild luminal irregularities; CIRCUMFLEX ARTERY:PROX CIRC: Mild calcification, eccentric: 25 % Stenosis, Previously placed stent is patent with mild luminal irregularities; OM 1: Proximal - small caliber vessel: 25 % Stenosis OM 2: Mid - Mild luminal irregularities; RIGHT CORONARY ARTERY:PROX RCA: diffuse: eccentric: 25 % Stenosis MID RCA: eccentric: 50 % Stenosis; DISTAL RCA: diffuse: eccentric: 10 - 25 % Stenosis; RT PDA: Proximal - Mild luminal irregularities - Per Cath 06/18/19- LEFT MAIN: distal: eccentric: 25 % Stenosis; LEFT ANTERIOR DESCENDING ARTERY: PROX LAD: Previously placed stent is patent with mild luminal irregularities, Previously placed stent has an instent proximal: 25 - 50 % restenosis, MID LAD: Mild luminal irregularities; DIAGONAL 1: Proximal - Previously placed stent is patent with mild luminal irregularities; CIRCUMFLEX ARTERY: PROX CIRC: eccentric: 25 % Stenosis, Previously placed stent is patent with mild luminal irregularities; OM 1: Proximal - 25 % Stenosis (small caliber vessel), OM 2: Mid - Mild luminal irregularities; RIGHT CORONARY ARTERY: PROX RCA: diffuse: eccentic: 25 % Stenosis, MID RCA: eccentric: 25 - 50 % Stenosis, DISTAL RCA: diffuse: eccentric: 10 - 25 % Stenosis; RT PDA: Proximal - Mild luminal irregularities. - Per cath 01/05/19- LEFT MAIN: distal: eccentric: 25 % Stenosis; LEFT ANTERIOR DESCENDING ARTERY: PROX LAD: Previously placed stent is patent with minimal luminal irregularities, MID LAD: Mild luminal irregularities, 25 % Stenosis, DISTAL LAD: Mild luminal irregularities; DIAGONAL 1: Proximal - Previously placed stent is patent with minimal luminal irregularities; CIRCUMFLEX ARTERY: PROX CIRC: Previously placed stent is patent with minimal luminal irregularities, OM 2: Mid - Mild luminal irregularities, RIGHT CORONARY ARTERY: Mild luminal irregularities, PROX RCA: diffuse: eccentric: 25 % Stenosis, MID RCA: eccentric: 25 - 50 % Stenosis, DISTAL RCA: diffuse: eccentric: 10 - 25 % Stenosis; RT PDA: Proximal - Mild luminal irregularities. Myalgia (Resolved) M79.1 Near syncope R55 Acute renal failure superimposed on stage 3 chronic kidney disease N17.9, N18.3 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 Dehydration E86.0 Shortness of breath R06.02 Allergies atorvastatin [From Lipitor] Adverse Reaction (Verified 02/20/20 10:54) myalgia leflunomide [From Arava] Adverse Reaction (Verified 02/20/20 10:54) PROBLEMS WITH MY FEET simvastatin [From Zocor] Adverse Reaction (Verified 02/20/20 10:54) myalgia Home Medications: Ambulatory Orders Medication Instructions Recorded Amiodarone HCl 200 mg PO BID 02/20/20 Aspirin 325 mg PO DAILY 02/20/20 Carvedilol [Coreg] 3.125 mg PO BID 02/20/20 Clopidogrel Bisulfate [Clopidogrel] 75 mg PO DAILY 02/20/20 Colchicine 0.6 mg PO DAILY 02/20/20 Finasteride 5 mg PO DAILY 02/20/20 Hydroxychloroquine [Plaquenil] 200 mg PO DAILYCM 02/20/20 Isosorbide Mononitrate [Imdur] 30 mg PO DAILY 02/20/20 Levothyroxine [Synthroid] 50 mcg PO DAILY 02/20/20 Nitroglycerin 0.4 mg SL Q5M PRN 02/20/20 Pravastatin Sodium 20 mg PO DAILY 02/20/20 Prednisone 5 mg PO DAILY 02/20/20 Tamsulosin HCl 0.4 mg PO DAILY 02/20/20 Tramadol HCl [Ultram] 50 mg PO QHS 02/20/20 Vitamin D PO DAILY 02/20/20 Surgical History: Surgical History (Last Reviewed 01/14/20 @ 10:56 by Migdalia Fisher) Presence of stent in coronary artery (Chronic) Onset Date: ~09/23/06 Z95.5 PTCA and stenting of the LAD and diagonal 09/23/2006 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) Z95.810 Implant: 06/2000; Generator change: 03/17/2008 History of appendectomy Z98.890, Z90.49 Presence of coronary angioplasty implant and graft Onset Date: ~09/23/06 Z95.5 PTCA and stenting of the LAD and diagonal 09/23/2006 Surgical History: angioplasty, appendectomy, pacemaker implantation, - - AICD, appendectomy, PCI. Psychiatric History: No pertinent psych hx Lives: Spouse/ Significant Other Smoking Status: Former smoker Tobacco Use: Non-smoker Alcohol: None Drugs: None - *Family History Paternal Family History: Family History (Last Reviewed 01/14/20 @ 10:56 by Mgidalia Fisher) Mother Alzheimers disease Brother Cancer Brother Hypertension Brother CAD (coronary artery disease) Sister CAD (coronary artery disease) Sister Breast cancer History Items: Pulmonary Disease - emphysema, s/p lobectomy Maternal Family History: Family History (Last Reviewed 01/14/20 @ 10:56 by Migdalia Fisher) Mother Alzheimers disease Brother Cancer Brother Hypertension Brother CAD (coronary artery disease) Sister CAD (coronary artery disease) Sister Breast cancer History Items: Dementia, Heart Disease Sibling Family History: Family History (Last Reviewed 01/14/20 @ 10:56 by Migdalia Fisher) Mother Alzheimers disease Brother Cancer Brother Hypertension Brother CAD (coronary artery disease) Sister CAD (coronary artery disease) Sister Breast cancer History Items: Heart Disease Offspring Family History: Family History (Last Reviewed 01/14/20 @ 10:56 by Migdalia Fisher) Mother Alzheimers disease Brother Cancer Brother Hypertension Brother CAD (coronary artery disease) Sister CAD (coronary artery disease) Sister Breast cancer History Items: No pertinent history Review of Systems Constitutional: Reports: Weakness, Fatigue. Denies: Anorexia, Chills, Fever, Night Sweats, Malaise, Weight Change Eyes: Denies: Conjunctivae Inflammation, Double vision, Drainage HEENT: Denies: Difficulty Swallowing, Dysphasia, Ear Pain, Eye Pain, Hearing Changes, Nasal bleeding, Nasal Congestion, Post Nasal Drip Cardiovascular: Reports: Chest Pain. Denies: Claudication, Chest Pressure, Chest Tightness, Edema, Palpitations Respiratory: Denies: Cough, Hemoptysis, Pleuritic Pain, Shortness of Breath, Shortness of breath at rest, Shortness of breath upon exertion, Sputum production, Wheezing Gastrointestinal: Denies: Abdominal Pain, Constipation, Diarrhea, Hematemesis, Hematochezia, Nausea, Melena, Vomiting Genitourinary: Denies: Dysuria, Frequency, Hematuria, Hesitancy, Nocturia, Retention, Urgency Musculoskeletal: Denies: Foot Pain, Hand Pain, Joint Pain, Joint stiffness, Joint swelling, Joint Tenderness Skin: Denies: Dryness, Jaundice, Pruritis, Rash Neurological: Denies: Blurred vision, Double vision, Change in Speech, Slurred speech, Difficulty swallowing, Focal weakness, Numbness, Tingling Psychiatric: Denies: Anxiety, Depression, Homicidal Ideations, Suicidal Ideations Endocrine: Denies: Change in Body Habitus, Heat/ Cold Intolerance, Polydipsia, Polyuria Hematologic/ Lymphatic: Denies: Adenopathy, Anemia, Easy Bruising, Easy Bleeding, Petechiae, Purpura VTE Information - Inpt Only VTE Present on Admission: No VTE Mechan Device Prophylaxis: None VTE Pharm Prophylaxis ordered?: Yes Patient Problems: Active and Suspected Problems (Last Reviewed 01/14/20 @ 10:56 by Migdalia Fisher) Orthostatic hypotension (Acute) Generalized weakness (Acute) Angina pectoris (Acute) - Physical Exam Vitals/I&O's: Vital Signs Temp Pulse Resp BP Pulse Ox 98.0 F 69 18 137/82 H 97 02/20/20 15:39 02/20/20 15:39 02/20/20 15:39 02/20/20 15:39 02/20/20 15:39 Oxygen Flow Rate (L/min) 2 Oxygen Delivery Method Room Air Weight: 80 kg Body Mass Index (BMI) 24.5 Intake and Output for Last 24 Hours 02/18/20 02/19/20 02/20/20 23:59 23:59 23:59 Intake Total 1000 / 1000 Balance 1000 / 1000 General: Alert, Oriented x3, Cooperative, No apparent distress, Well developed, Well nourished, - - Patient is a poor informant HEENT: Atraumatic, PERRLA, EOMI, Normocephalic Oral: Moist Mucosa Neck: Supple, No JVD, Trachea Midline, Thyroid Normal Size and Texture Lungs: Clear to auscultation, Normal air movement, No rhonchi, No wheeze, No rales Cardiovascular: Regular rate, Regular Rhythm, Normal S1, Normal S2, No murmurs, PMI Normal, No rub noted, No Gallop Abdomen: Bowel Sounds Present, Soft, Non Tender, Non-Distended Extremities: No clubbing, No cyanosis, No edema, Capillary Refill Less than 3 Seconds Skin: No rashes, No breakdown Musculoskeletal: No Tenderness to Palpation of Joints or Extremities Neurological: Cranial nerves II-XII grossly intact, Neuro grossly intact, Sensory exam intact to light touch and pain Psych/Mental Status: - - Patient is a poor informant, he answers simple questions appropriately Laboratory Results 02/20/20 11:00: WBC 5.0, RBC 4.05 L, Hgb 12.7 L, Hct 40.0, MCV 98.8 H, MCH 31.4, MCHC 31.8 L, RDW Std Deviation 55.3 H, RDW Coeff of [place] 15.4 H, Plt Count 147 L, MPV 9.2, Immature Gran % (Auto) 0.400, Neut % (Auto) 67.4, Lymph % (Auto) 17.6 L, [place] % (Auto) 9.6, Eos % (Auto) 4.2, Baso % (Auto) 0.8, Absolute Neuts (auto) 3.4, Absolute Lymphs (auto) 0.88, Nucleated RBC % 0 02/20/20 11:00: Sodium 139, Potassium 4.0, Chloride 105, Carbon Dioxide 28.0, Anion Gap 6, BUN 19 H, Creatinine 2.16 H, Estim Creat Clear Calc 27.11, Est GFR (MDRD) Af Amer 38 L, Est GFR (MDRD) Non-Af 31 L, BUN/Creatinine Ratio 8.8 L, Glucose 80, Calcium 8.9, Magnesium 2.1, Troponin I 0.019, TSH 5.95 H Current Medications Sodium Chloride (0.9% Saline Lock 10 Ml Syringe) 10 - 40 ml IV UD PRN PRN Reason: SALINE FLUSH Assessment/Plan All Active Problems (Last Reviewed 01/14/20 @ 10:56 by Migdalia Fisher) Orthostatic hypotension (Acute) Generalized weakness (Acute) Exertional angina (Acute) Unstable angina (Acute) Dysrhythmia, cardiac (Acute) Chest pain (Acute) Angina pectoris (Acute) Acute on chronic combined systolic and diastolic heart failure (Resolved) Chest pain (Resolved) Fatigue (Resolved) Hypoxia (Resolved) Myalgia (Resolved) #1 generalized weakness-probably secondary to orthostatic hypotension from dehydration, patient will be given IV fluids, he will be placed in observation status on [facility], he will be seen by PT and OT #2 chest pain-etiology unclear, could be anginal in nature, I will repeat 1 more troponin-I do not think patient has had a non-STEMI. Patient is not a candidate for invasive treatment #3 chronic kidney disease stage III #4 coronary artery disease #5 hypothyroidism-I will increase the patient's Synthroid to 0.75 mg daily. #6 dilated cardiomyopathy #7 mixed sleep apnea-patient is currently on BiPAP at home #8 abdominal aortic aneurysm-patient was evaluated in October 13, 1979 by vascular surgeon in [place], I do not know what the recommendation was concerning this, when I saw the patient in October of this year I asked him to follow-up with his PCP regarding any recommendations about surgery for his aneurysm. #9 cognitive impairment-type unknown #10 chronic anemia-etiology unclear #11 essential hypertension #12 paroxysmal ventricular tachycardia-patient is currently listing amiodarone 200 mg twice a day as the dose he is taking, he was on that dosage in October 2019 so I have elected to reduce the dose to 200 mg daily. OBSV E&M: [id number] Initial observation care L3
[2020-02-20] MEDS: 0.9% Normal Saline 1,000 ML 75 ML IV (16:39)
[2020-02-20] MEDS: Tamsulosin HCl 0.4 MG Capsule PO (16:39)
[2020-02-20] MEDS: Pravastatin 20 MG Tablet PO (22:01)
[2020-02-20] MEDS: Heparin Injection (Vial) 5,000 UNIT/ML VIAL 5000 UNIT SC (22:01)
[2020-02-20] MEDS: Carvedilol 3.125 MG TABLET PO (22:01)
[2020-02-21] VITALS (8 sets, daily range): BP systolic 120–160; BP diastolic 59–137; PULSE 55–63; RESP 12–18; TEMP 35.8–36.9; O2SAT 95–96
--- NOTE | 2020-02-21 00:48 | NURSING ---
patient refusing bipap, states he is unable to sleep
[2020-02-21] MEDS: Levothyroxine 75 MCG Tablet PO (05:41)
[2020-02-21] MEDS: 0.9% Normal Saline 1,000 ML 75 ML IV ×2 (05:41→16:59)
[2020-02-21 05:46] LABS: Anion Gap 6 (5-15); BUN 18 mg/dL (7-18); BUN/Creat Ratio 9.4 RATIO (10-20); Calcium,Total 8.3 mg/dL (8.5-10.1); Chloride 106 mmol/L (98-107); Creatinine, Serum 1.92 mg/dL (0.70-1.30); EST Glomerular Filtration Rate 36 mL/min (>60); Est Glom Filt Rate - Afr Amer 43 mL/min (>60); Glucose 67 mg/dL (74-106); Sodium Level 138 mmol/L (136-145)
[2020-02-21 07:36] LABS: Bedside Glucose 73 mg/dL (70-110)
[2020-02-21] MEDS: predniSONE 5 MG Tablet PO (08:58)
[2020-02-21] MEDS: Hydroxychloroquine 200 MG Tablet PO (08:58)
[2020-02-21] MEDS: Aspirin 81 MG TAB.CHEW PO (08:58)
[2020-02-21] MEDS: Finasteride 5 MG Tablet PO (09:29)
[2020-02-21] MEDS: Amiodarone 200 MG Tablet PO (09:29)
[2020-02-21] MEDS: Isosorbide Mononitrate 30 MG Tablet PO (09:29)
[2020-02-21] MEDS: Carvedilol 3.125 MG TABLET PO ×2 (09:29→22:11)
[2020-02-21] MEDS: Heparin Injection (Vial) 5,000 UNIT/ML VIAL 5000 UNIT SC ×2 (09:30→22:11)
[2020-02-21] MEDS: Nystatin Powder 15gm Bottle 1 APPLIC TOPICAL ×2 (09:30→22:11)
[2020-02-21] MEDS: Clopidogrel Bisulfate 75 MG Tablet PO (09:31)
--- NOTE | 2020-02-21 10:29 | CASEMGMT ---
Addendum entered by Mohini Gomez 02/21/20 14:19: SW spoke javan/Susi in admissions with the [facility], they need to make some room changes but will be able to take pt tomorrow. SW also had discussed javan/Susi earlier that the 3 day inpt stay rule is still waived for Medicare, Medicare will cover SNF for pt even though he is not here 3 days. BLANKA called daughter, let her know that [facility] can take pt tomorrow. She asked if they can transport pt, SW called [facility], due to COVID, pt needs to be transported via w/c van. SW let daughter know and that pt will be charged for transport. Daughter states understanding. SW let pt know as well that he will be able to go to [facility] at discharge. SW will continue to follow. DIAZ Salcedo Addendum entered by Mohini Gomez 02/21/20 11:42: SW spoke w/pt again, he is not certain where he should go for rehab. He spoke w/his daughter and she is to let him know where to consider. SW asked if okay to call daughter, pt is fine with this. SW called pt's daughter Rupal in regard to plan. Daughter asked about TCU and [facility], SW explained that neither have beds. We reviewed the rest of the list, directed her also to the Medicare website. Daughter asked for SW to call [facility] to see if they are taking COVID pts and if they have bed availability(daughter does not want pt to go where there are COVID pts). BLANKA explained will call and fined out. BLANKA called [facility], they have no beds. SW called [facility], they may have bed availability, their residents to not have COVID, the staff has. SW explained will call daughter and fax referral. SW called daughter again, explained the above. She is agreeable to referral to [facility], and agreeable to SW calling [facility] as well. SW faxed referral to [facility]. BLANKA called [facility], message left. BLANKA will continue to follow. DIAZ Salcedo Original Note: SW met w/pt in room in regard to prior level of function and discharge plan. PCP: Dr. Pineda Specialists: Dr. Crain and Dr. Caceres Preferred pharmacy: [facility] in [place] Insurance: Medicare A/B, [employer] LW/POA: Pt's is POA, forms not on file Living arrangements: Pt lives home w/ in two story home, normally independent with ADLS and drives. LNOK: Rupal Ascencio, daughter DME/HHC: Pt has grab bars, shower chair, cpap, walker. Pt has been using the walker in the house. Pt states has not had HHC, no history of SNF in the past either. Plan: Pt would like to go to SNF for rehab. SW gave pt list of SNF in [facility], pt calling his family to review options. SW will check back shortly and send referral to pt's facility of choice. SW will continue to follow. DIAZ Salcedo
[2020-02-21] MEDS: Loperamide 2 MG Capsule PO ×2 (12:13→19:56)
--- NOTE | 2020-02-21 15:55 | PCM.PROGNOTE ---
Patient Problems: Active and Suspected Problems (Last Reviewed 01/14/20 @ 10:56 by Migdalia Fisher) Orthostatic hypotension (Acute) Generalized weakness (Acute) Chest pain (Acute) Angina pectoris (Acute) Subjective: Patient was seen and examined today, he has had some diarrhea this morning, he still does not appear stable when walking, he is no longer hypotensive and his renal functions are improved. He has agreed to go to an extended care facility for inpatient rehab services, arrangements will be made possibly tomorrow to transfer him. Patient has no complaints of any chest pain or shortness of breath. - Physical Exam Vitals/I&O's: Vital Signs Temp Pulse Resp BP Pulse Ox 98.4 F 59 L 18 126/75 H 95 02/21/20 15:39 02/21/20 15:39 02/21/20 15:39 02/21/20 15:39 02/21/20 15:39 Oxygen Flow Rate (L/min) 2 Oxygen Delivery Method Room Air Weight: 80 kg Body Mass Index (BMI) 24.5 Orthostatic Vital Signs Start: 02/21/20 13:36 Freq: q24h Status: Active Protocol: Activity Type Activity Date Activity User E-Sign Co-Sign Detail Recorded Client Recorded Date Recorded By Document 02/21/20 13:36 [facility] [id number] 02/21/20 13:40 A[facility] 02/21/20 13:36 Orthostatic Vitals Standing -Blood Pressure (90/60-120/80) 160/137 H -Extremity Use Left Arm -Pulse Rate (60-100) 55 L Sitting -Blood Pressure (90/60-120/80) 120/59 L -Extremity Use Left Arm -Pulse Rate (60-100) 56 L Lying -Blood Pressure (90/60-120/80) 125/72 H -Extremity Use Left Arm -Pulse Rate (60-100) 58 L Intake and Output for Last 24 Hours 02/19/20 02/20/20 02/21/20 23:59 23:59 23:59 Intake Total 1600 / 1600 1277.5 / 1277.5 Output Total 700 / 700 Balance 1600 / 1300 577.5 / 577.5 General: Alert, Cooperative, Well developed, Well nourished HEENT: PERRLA, EOMI Oral: Moist Mucosa Neck: Supple, No JVD, No Nuchal Rigidity, Trachea Midline Lungs: Clear to auscultation, Normal air movement, No rhonchi, No wheeze, No rales Cardiovascular: Regular rate, Regular Rhythm, Normal S1, Normal S2, PMI Normal, No rub noted, No Gallop Abdomen: Bowel Sounds Present, Soft, Non Tender, Non-Distended Extremities: No clubbing, No cyanosis, Capillary Refill Less than 3 Seconds Skin: No rashes, No breakdown Musculoskeletal: No Tenderness to Palpation of Joints or Extremities Neurological: Cranial nerves II-XII grossly intact, Neuro grossly intact, Sensory exam intact to light touch and pain, Coordination normal Psych/Mental Status: Normal Affect, Appropriate Laboratory Results 02/20/20 19:13: Troponin I 0.017 02/21/20 05:15: Sodium 138, Potassium 4.0, Chloride 106, Carbon Dioxide 26.0, Anion Gap 6, BUN 18, Creatinine 1.92 H, Estim Creat Clear Calc 30.50, Est GFR (MDRD) Af Amer 43 L, Est GFR (MDRD) Non-Af 36 L, BUN/Creatinine Ratio 9.4 L, Glucose 67 L, Calcium 8.3 L 02/21/20 07:29: POC Glucose 73 02/21/20 13:25: COVID-19 (EMELYN) Pending Current Medications Amiodarone HCl (Amiodarone 200 Mg Tablet) 200 mg PO DAILY [facility] Last Admin: 02/21/20 09:29 Dose: 200 mg Documented by: Aspirin (Aspirin 81 Mg Tab.Chew) 81 mg PO DAILY@0800 [facility] Last Admin: 02/21/20 08:58 Dose: 81 mg Documented by: Carvedilol (Carvedilol 3.125 Mg Tablet) 3.125 mg PO BID [facility] Last Admin: 02/21/20 09:29 Dose: 3.125 mg Documented by: Clopidogrel Bisulfate (Clopidogrel Bisulfate 75 Mg Tablet) 75 mg PO DAILY [facility] Last Admin: 02/21/20 09:31 Dose: 75 mg Documented by: Colchicine (Colchicine 0.6 Mg Tablet) 0.6 mg PO DAILY [facility] Last Admin: 02/21/20 09:30 Dose: 0.6 mg Documented by: Finasteride (Finasteride 5 Mg Tablet) 5 mg PO DAILY [facility] Last Admin: 02/21/20 09:29 Dose: 5 mg Documented by: Heparin Sodium (Porcine) (Heparin Injection (Vial) 5,000 Unit/Ml Vial) 5,000 unit SC Q12 [facility] Last Admin: 02/21/20 09:30 Dose: 5,000 unit Documented by: Hydroxychloroquine Sulfate (Hydroxych[facility]oquine 200 Mg Tablet) [facility] Admin: 02/21/20 08:58 Dose: 200 mg Documented by: Sodium Chloride () 1,000 mls @ 75 mls/hr IV .[id number] [facility] Last Admin: 02/21/20 05:41 Dose: 75 mls/hr Documented by: Isosorbide Mononitrate (Isosorbide Mononitrate 30 Mg Tablet) 30 mg PO DAILY [facility] Last Admin: 02/21/20 09:29 Dose: 30 mg Documented by: Levothyroxine Sodium (Levothyroxine 75 Mcg Tablet) 75 mcg PO DAILY@0600 [facility] Last Admin: 02/21/20 05:41 Dose: 75 mcg Documented by: Loperamide HCl (Loperamide 2 Mg Capsule) 2 mg PO Q4H PRN PRN PRN Reason: Diarrhea Last Admin: 02/21/20 12:13 Dose: 2 mg Documented by: Nitroglycerin (Nitroglycerin (Inpatient Use) 0.4 Mg Tab.Subl) 0.4 mg SUBLINGUAL Q5M PRN PRN Reason: CHEST PAIN Nystatin (Nystatin Powder 15gm Bottle) 1 applic TOPICAL BID [facility]; Protocol Last Admin: 02/21/20 09:30 Dose: 1 applicatio Documented by: Ondansetron HCl (Ondansetron 4 Mg/2 Ml Vial) 4 mg IV Q8H PRN PRN PRN Reason: NAUSEA/VOMITING Pravastatin Sodium (Pravastatin 20 Mg Tablet) 20 mg PO QHS [facility] Last Admin: 02/20/20 22:01 Dose: 20 mg Documented by: Prednisone (Pred[facility] 5 Mg Tablet) [facility] Admin: 02/21/20 08:58 Dose: 5 mg Documented by: Sodium Chloride (0.9% Saline Lock 10 Ml Syringe) 10 - 40 ml IV UD PRN PRN Reason: SALINE FLUSH Tamsulosin HCl (Tamsulosin Hcl 0.4 Mg Capsule) 0.4 mg PO DAILY@1730 [facility] Last Admin: 02/20/20 16:39 Dose: 0.4 mg Documented by: Medical Necessity - Tobacco Use Smoking Status: Former smoker Tobacco Use: Non-smoker Assessment/Plan All Active Problems (Last Reviewed 01/14/20 @ 10:56 by Migdalia Fisher) Orthostatic hypotension (Acute) Generalized weakness (Acute) Exertional angina (Acute) Unstable angina (Acute) Dysrhythmia, cardiac (Acute) Chest pain (Acute) Angina pectoris (Acute) Acute on chronic combined systolic and diastolic heart failure (Resolved) Chest pain (Resolved) Fatigue (Resolved) Hypoxia (Resolved) Myalgia (Resolved) #1 generalized weakness-probably secondary to orthostatic hypotension from dehydration, have decided to stop the patient's IV fluids at this time, PT and OT will work with the patient, he will need at least short-term placement [facility] a [facility] facility. #2 chest pain-etiology unclear, could be anginal in nature, patient's repeat troponin was normal yesterday #3 chronic kidney disease stage III #4 coronary artery disease #5 hypothyroidism-I will increase the patient's Synthroid to 0.75 mg daily. #6 dilated cardiomyopathy #7 mixed sleep apnea-patient is currently on BiPAP at home #8 abdominal aortic aneurysm-patient was evaluated in October 13, 1979 by vascular surgeon in [place], I do not know what the recommendation was concerning this, when I saw the patient in October of this year I asked him to follow-up with his PCP regarding any recommendations about surgery for his aneurysm. #9 cognitive impairment-type unknown #10 chronic anemia-etiology unclear #11 essential hypertension #12 paroxysmal ventricular tachycardia-patient currently is on amiodarone #13 diarrhea-etiology unclear, I will monitor this. Patient was placed on Imodium Inpatient E&M: 03470 Init Hosp L3
[2020-02-21] MEDS: Tamsulosin HCl 0.4 MG Capsule PO (17:00)
[2020-02-21] MEDS: Nitroglycerin (INPATIENT USE) 0.4 MG TAB.SUBL SUBLINGUAL (21:51)
--- NOTE | 2020-02-21 22:10 | EKG12_ITS ---
Test Reason : CP Blood Pressure : / mmHG Vent. Rate : 061 BPM Atrial Rate : 061 BPM P-R Int : 250 ms QRS Dur : 128 ms QT Int : 498 ms P-R-T Axes : 036 -25 128 degrees QTc Int : 501 ms Sinus rhythm with 1st degree A-V block Left ventricular hypertrophy with QRS widening and repolarization abnormality Abnormal ECG When compared with ECG of 20-FEB-2020 11:07, MANUAL COMPARISON REQUIRED, DATA IS UNCONFIRMED Confirmed by ADELA GALLARDO, CINDI ([id number]), audiology director SHE BURLESON ([id number]) on 02/28/2020 9:37:47 AM Referred By: RANDALL Confirmed By:BENNIE CHAPMAN MD
[2020-02-21] MEDS: Pravastatin 20 MG Tablet PO (22:12)
--- NOTE | 2020-02-21 22:25 | NURSING ---
pt was c/o cp when taking deep breath 5/10. pt was given nitro x1 by charge nurse. RN took v/s. Charge nurse put pt on O2. RT made aware by charge nurse for EKG. core texted Dr. edouard/ EKg result. Dr. Peterson states in text it was non stemi. pt states pain is gone. pt resting in bed comfortably.
[2020-02-22 02:10] VITALS: BP 138/75; PULSE 55; RESP 18; TEMP 36.4; O2SAT 99
[2020-02-22] MEDS: Levothyroxine 75 MCG Tablet PO (05:14)
[2020-02-22] MEDS: 0.9% Normal Saline 1,000 ML 75 ML IV (05:15)
[2020-02-22] MEDS: predniSONE 5 MG Tablet PO (08:11)
[2020-02-22] MEDS: Aspirin 81 MG TAB.CHEW PO (08:12)
[2020-02-22] MEDS: Hydroxychloroquine 200 MG Tablet PO (08:12)
[2020-02-22 08:18] VITALS: BP 132/69; PULSE 64; RESP 18; TEMP 36.5; O2SAT 96
--- NOTE | 2020-02-22 09:33 | CASEMGMT ---
Addendum entered by Mohini Gomez 02/22/20 10:24: Pt is ready for discharge today. BLANKA faxed all discharge paperwork to the [facility]. SW set up an ambulette w/[facility] for 1pm. SW called pt's daughter Rupal, let her know pt is discharged and will leave at 1pm via wheelchair van to [facility]. SW let pt and bedside RN know as well. SW also let Susi at the [facility] know the time of pickup. No further needs, pt to [facility] today. DIAZ Salcedo Original Note: SW spoke w/Susi at [facility], they can take pt anytime today. SW completed hospital exemption, faxed this along with the negative COVID test to [facility]. BLANKA will continue to follow. DIAZ Salcedo
--- NOTE | 2020-02-22 09:45 | PCM.TXEXTCAR ---
- Diet 02/20/20 16:07 Diet: Regular - General Food consistency:: Regular Liquid Consistency:: Regular/Thin Is pt able to select menu?: No Diet Comments: hot chocolate w/trays and a bottled water - Therapies Physical Therapy: Eval and Treat Occupational Therapy: Eval and Treat - Problem/Diagnosis (1) Generalized weakness Status: Acute (2) Chest pain Status: Acute (3) Cognitive impairment Status: Chronic (4) Atherosclerotic heart disease of [place] coronary artery without angina pectoris Status: Chronic Comment: PTCA and stenting of the LAD and diagonal 09/23/2006 (5) Essential hypertension Status: Chronic (6) Mixed sleep apnea Status: Chronic Comment: BiPAP 17/11 mm of water with a backup rate of 12 (7) Dilated cardiomyopathy Status: Chronic Comment: 15% EF (8) Hypothyroidism, iatrogenic Status: Chronic - Allergies/Procedures Done in Hospital Allergies/Adverse Reactions: Allergies atorvastatin [From Lipitor] Adverse Reaction (Verified 02/20/20 10:54) myalgia leflunomide [From Arava] Adverse Reaction (Verified 02/20/20 10:54) PROBLEMS WITH MY FEET simvastatin [From Zocor] Adverse Reaction (Verified 02/20/20 10:54) myalgia Procedures: None - Type of Care/Length of Stay Estimated LOS: Convalescent Care Less Than 30 days Type of Care Needed: Skilled Rehab Potential: Good Prognosis: Good - Additional Orders/Day of Discharge H&P will serve as current which was dated: 02/20/20 Day of Discharge: 02/22/20 - Follow Up Care Primary Care Physician: Miguel Pineda MD [Primary Care Provider] -
[2020-02-22] MEDS: Isosorbide Mononitrate 30 MG Tablet PO (09:52)
[2020-02-22] MEDS: Clopidogrel Bisulfate 75 MG Tablet PO (09:52)
[2020-02-22] MEDS: Carvedilol 3.125 MG TABLET PO (09:52)
[2020-02-22] MEDS: Heparin Injection (Vial) 5,000 UNIT/ML VIAL 5000 UNIT SC (09:52)
[2020-02-22] MEDS: Amiodarone 200 MG Tablet PO (09:52)
[2020-02-22] MEDS: Finasteride 5 MG Tablet PO (09:53)
[2020-02-22] MEDS: Nystatin Powder 15gm Bottle 1 APPLIC TOPICAL (09:53)
--- NOTE | 2020-02-22 11:58 | NURSING ---
report called to [facility] report given to Blanca ansari
--- NOTE | 2020-02-22 14:02 | PCM.DC.SUM ---
Discharge Date and Diagnosis - Problem List Patient Problems: Active and Suspected Problems (Last Reviewed 01/14/20 @ 10:56 by Migdalia Fisher) Orthostatic hypotension (Acute) Generalized weakness (Acute) Chest pain (Acute) Angina pectoris (Acute) Date of Admission: 02/20/20 Date of Discharge: 02/22/20 - Primary Discharge Diagnosis Acute Problems: Active Problems (Last Reviewed 01/14/20 @ 10:56 by Migdalia Fisher) Orthostatic hypotension (Acute) secondary to dehydration #2 generalized weakness-probably secondary to orthostatic hypotension from dehydration #3 chest pain-etiology unclear, could be anginal in nature, patient's repeat troponin was normal yesterday #4 chronic kidney disease stage III #5 coronary artery disease #6 hypothyroidism-I will increase the patient's Synthroid to 0.75 mg daily. #7 dilated cardiomyopathy #8 mixed sleep apnea-patient is currently on BiPAP at home #9 abdominal aortic aneurysm-patient was evaluated in October 13, 1979 by vascular surgeon in [place], I do not know what the recommendation was concerning this, when I saw the patient in October of this year I asked him to follow-up with his PCP regarding any recommendations about surgery for his aneurysm. 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) Abnormal echocardiogram (Chronic) Mixed hyperlipidemia (Chronic) Atherosclerotic heart disease of [place] coronary artery without angina pectoris (Chronic) PTCA and stenting of the LAD and diagonal 09/23/2006 Essential hypertension (Chronic) Mixed sleep apnea (Chronic) BiPAP 17/11 mm of water with a backup rate of 12 Hypersomnolence disorder (Chronic) Dilated cardiomyopathy (Chronic) 15% EF Paroxysmal ventricular tachycardia (Chronic) Abnormal result of cardiovascular function study, unspecified (Chronic) 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) Implant: 06/2000; Generator change: 03/17/2008 Hypothyroidism, iatrogenic (Chronic) 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 Patient was a poor informant and it was noted on examination in the ER that the patient was too weak to stand without maximal assistance or walk. Work-up in the emergency room included cardiac enzymes which were normal, patient's EKG revealed no acute ischemic changes, patient's creatinine was 2.16. Chest x-ray showed evidence of COPD without any acute findings. Patient was orthostatic on his orthostatic vitals in the emergency room. Patient was placed into observation status on MedSurg 3, he was seen by PT and OT and given IV fluids. Patient's blood pressure improved but he was felt to debilitated to go home and short-term nursing home facility placement was arranged for the patient. On 02/22/2020, patient was seen and examined: On examination he appeared in good health and spirits, patient had mild cognitive impairment. Vital signs as documented. Skin warm and dry and without overt rashes. Neck without JVD, neck was supple, trachea midline, thyroid was normal. Lungs clear bilaterally, normal air movement was noted. Heart exam notable for regular rhythm, normal sounds and absence of murmurs, rubs or gallops. Abdomen unremarkable and without evidence of organomegaly, masses, or abdominal aortic enlargement. Bowel sounds are present, abdomen is not distended. Extremities nonedematous, no cyanosis was noted, no clubbing was noted. Neuro: Cranial nerves II through XII are grossly intact, no focal motor deficits were noted, sensation to light touch and pinprick intact, motor exam 5/5 throughout. Psych: Patient is alert and was appropriate to simple questions. On 02/22/2020, patient was discharged to a nursing home facility for inpatient nursing home services. Patient was stable at the time of discharge. Patient Problems: Active and Suspected Problems (Last Reviewed 01/14/20 @ 10:56 by Migdalia Fisher) Orthostatic hypotension (Acute) Generalized weakness (Acute) Chest pain (Acute) Angina pectoris (Acute) - Physical Exam Vitals/I&O's: Vital Signs Temp Pulse Resp BP Pulse Ox 97.7 F L 64 18 132/69 H 96 02/22/20 08:18 02/22/20 08:18 02/22/20 08:18 02/22/20 08:18 02/22/20 08:18 Oxygen Flow Rate (L/min) 2 Oxygen Delivery Method Room Air Weight: 80 kg Body Mass Index (BMI) 24.5 Intake and Output for Last 24 Hours 02/20/20 02/21/20 02/22/20 23:59 23:59 23:59 Intake Total 1600 / 1600 2475.0 / 2475.0 1827.5 / 1827.5 Output Total 1800 / 1800 650 / 650 Balance 1600 / 1300 675.0 / 675.0 1177.5 / 1177.5 Laboratory Results 02/21/20 13:25: COVID-19 (EMELYN) Not Detected 02/21/20 22:38: Troponin I 0.016 Home Medications: Medications to take at Discharge Carvedilol [Coreg (Beta Karri)] 3.125 mg PO BID 02/20/20 Clopidogrel Bisulfate [Clopidogrel] 75 mg PO DAILY 02/20/20 Colchicine 0.6 mg PO DAILY 02/20/20 Finasteride 5 mg PO DAILY 02/20/20 Hydroxychloroquine [Plaquenil] 200 mg PO DAILYCM 02/20/20 Isosorbide Mononitrate [Imdur] 30 mg PO DAILY 02/20/20 Nitroglycerin 0.4 mg SL Q5M PRN 02/20/20 Pravastatin Sodium 20 mg PO DAILY 02/20/20 Prednisone 5 mg PO DAILY 02/20/20 Tamsulosin HCl 0.4 mg PO DAILY 02/20/20 Amiodarone HCl [Cordarone] 200 mg PO DAILY tab 02/22/20 Aspirin [Aspirin, Baby] 81 mg PO DAILY@0800 tab.chew 02/22/20 Donepezil HCl [Aricept] 5 mg PO QHS #1 tab 02/22/20 Levothyroxine [Synthroid] 75 mcg PO DAILY@0600 tab 02/22/20 Loperamide [Imodium] 2 mg PO Q4H PRN PRN cap 02/22/20 Nystatin Powder [Mycostatin Powder] 1 applic TOPICAL BID bottle 02/22/20 Following Prescriptions Were Given to Patient: Donepezil HCl [Aricept] 5 mg PO QHS #1 tab Primary Care Physician: Miguel Pineda MD [Primary Care Provider] - Disposition: [facility] facility Minutes spent on discharge:: 31 Patient Condition:: Stable Medical Necessity - Tobacco Use Smoking Status: Former smoker Tobacco Use: Non-smoker Meaningful Use Info Meaningful Use Diagnoses (Choose all that apply): None applicable Inpatient E&M: 55608 Disch Hosp
== END 2020-02-22 13:38 | disposition skilled nursing facility (03) | DRG 641 ==
LOC: ED 11:39 → MS3 14:14
PROVIDERS: Hospitalist; Admitting Provider Internal Medicine; Emergency Provider Emergency Medicine; PCP Family Medicine; Visit Provider Internal Medicine
DX: E86.0 Dehydration (principal); I95.1 Orthostatic hypotension; E11.22 Type 2 diabetes mellitus with diabetic chronic kidney disease; I13.0 Hypertensive heart and chronic kidney disease with heart failure and stage 1 through stage 4 chronic kidney disease, or unspecified chronic kidney disease; I50.42 Chronic combined systolic (congestive) and diastolic (congestive) heart failure; N18.30 Chronic kidney disease, stage 3 unspecified; I42.0 Dilated cardiomyopathy; I47.2 Ventricular tachycardia; I25.110 Atherosclerotic heart disease of native coronary artery with unstable angina pectoris; G31.84 Mild cognitive impairment of uncertain or unknown etiology; J44.9 Chronic obstructive pulmonary disease, unspecified; E78.2 Mixed hyperlipidemia; E03.9 Hypothyroidism, unspecified; D64.9 Anemia, unspecified; R19.7 Diarrhea, unspecified; G47.31 Primary central sleep apnea; G47.33 Obstructive sleep apnea (adult) (pediatric); G47.39 Other sleep apnea; Z79.82 Long term (current) use of aspirin; Z79.02 Long term (current) use of antithrombotics/antiplatelets; Z79.890 Hormone replacement therapy; Z79.899 Other long term (current) drug therapy; Z87.891 Personal history of nicotine dependence; Z95.810 Presence of automatic (implantable) cardiac defibrillator; Z95.5 Presence of coronary angioplasty implant and graft; Z95.1 Presence of aortocoronary bypass graft
CPT/HCPCS: 36415; 71045; 80048; 82962; 83735; 84443; 84484; 85025; 87635; 93005; 94002; 97110; 97162; 97166; 97535; 99285; J7030; J7040; A4216; U0002

== ENCOUNTER → 2020-03-01 10:30 | Outpatient (REF) | payer SELFPAY ==
[2020-02-20 15:15] VITALS: BMI 24.5
== END ==
LOC: OLS.ACH 10:30
PROVIDERS: PCP Family Medicine; Referring Provider Family Medicine; Visit Provider Family Medicine
DX: Z03.818 Encounter for observation for suspected exposure to other biological agents ruled out (principal)
CPT/HCPCS: 87635; U0005; U0003

== ENCOUNTER 2020-03-08 10:45 | Inpatient (IN) | payer MEDICARE, OTHER, SELFPAY ==
[2020-02-20 15:15] VITALS: BMI 24.5
[2020-03-08] VITALS (13 sets, daily range): BP systolic 90–122; BP diastolic 57–78; PULSE 63–68; RESP 14–22; TEMP 36.8–37.3; O2SAT 87–99; BMI 26.6; BMI 22.7
--- NOTE | 2020-03-08 11:10 | RAD_ITS ---
STUDY: X-RAY CHEST REASON FOR EXAM: Male, 84 years old. covid positive. cough, hypoxia and resistor distress TECHNIQUE: Single AP portable view of the chest. COMPARISON: Comparison is made with prior study dated 02/20/2020. FINDINGS: EKG electrodes are seen. Stable mild increased linear markings at the lung bases suggestive of scarring. Hyperinflation. There is no demonstrated pleural abnormality. Normal size heart. A left-sided unipolar pacemaker is seen. Normal mediastinum and [place]. Normal visualized pulmonary arteries. There is atherosclerotic calcification of the aortic arch with tortuosity. Normal visualized thoracic spine. Normal visualized ribs, clavicles, and shoulders. There is no demonstrated abnormality of the visualized soft tissue structures of the upper abdomen. RAD/Chest 1 View (Portable) IMPRESSION: Stable examination. No acute abnormality is seen. Electronically Signed: Pablito Lloyd, at 12:07 EST , Service support ,
[2020-03-08 11:12] LABS: Absolute Lymphocyte Count 0.43 X10^3/uL (0.83-4.51); Absolute Neutrophil Count 3.5 X10^3/uL (2.0-7.7); Basophil# 0.01 X10^3/uL; Basophil% 0.2 % (0-1); Eosinophil# 0.01 X10^3/uL; Eosinophils% 0.2 % (0-5); Hemoglobin 12.5 g/dL (13.0-16.5); Lymphocyte # 0.43 X10^3/ul (4.0); Lymphocyte % 10.2 % (19-41); Mean Corp Hgb Conc 32.1 g/dL (32-36); Mean Corpuscular Hgb 31.1 pg (27.0-32.0); Mean Platelet Vol. 9.4 fl (6.2-12.0); Monocyte# 0.28 X10^3/uL; Monocyte% 6.7 % (0-10); NRBC Flagged by Analyzer 0 % (0-5); Neutrophil # 3.46 X10^3/uL (2.7-7.7); Neutrophil % 82.2 % (47-70); POSITIVE DIFFERENTIAL YES; Platelet Count 126 K/mm3 (150-450); RBC Distribution Width CV 15.9 % (11.6-14.6); RBC Distribution Width SD 57.1 fl (35.1-43.9); Red Blood Count 4.02 M/mm3 (4.6-6.2); White Blood Count 4.2 K/mm3 (4.4-11.0)
[2020-03-08 11:13] LABS: Differential Indicated SCAN CRITERIA MET
--- NOTE | 2020-03-08 11:13 | ED.VISSUMM ---
- ER Visit Summary Date of Service: 03/08/20 Chief Complaint: Cough and shortness of breath History of Present Illness: The patient is a [address] Laureano. He is a resident of the [facility]. He tested positive for Covid on February 28. He reports that he has shortness of breath that worsened today. He has not been on oxygen previously. His pulse ox was 87% on room air this morning. He was placed on 2 L and his pulse ox was 94%. Patient complains of chills. He reports his cough is productive yellow sputum without blood. He had a sharp chest pain last night that was 9-10 severity at worst. He is pain-free currently. Nothing made this worse. It was decreased with moving around. He does report that he is mildly short of breath. He states has been nauseated and had dry heaves. He also complains of generalized weakness. Patient reports that he fell 2 weeks ago. No loss of consciousness. He has not fallen since then. Physical Examination: Vitals: 99.2, 109/63, 66, 14, 87% on room air at rest which is hypoxic. General: Well-nourished and well-developed. Head: Normocephalic atraumatic. Neck: Supple, no lymphadenopathy. No JVD. Nontender. Cardiovascular: Regular rate and rhythm. 2 out of 6 systolic murmur. Respiratory: Mild respiratory distress. Clear to auscultation bilaterally. Abdominal: Soft, nontender, nondistended, normal bowel sounds. No guarding, rebound, or peritoneal signs. Back: Nontender. Extremities: Nontender, no edema. Skin: Old contusion over her left arm and forearm, no rash. Neurologic: Alert and oriented ?3. Cranial nerves II through XII are intact. Normal strength and sensation. Psych: Normal affect. Test Results: CBC shows a white count of 4.2 with 82 segmented neutrophils and 10 lymphocytes. H&H is 12.5 and 39.0. Platelets 126. Chem-7 shows a BUN of 30 and creatinine 1.89. LFTs show an albumin of 2.9, ALT of 86, AST of 115, total bili of 1.3. Lactic acid is 2.2. Fibrinogen is 279. CRP is 68.5. LDH 247. D-dimer is 6.05. Clinical Impression(s) from Imaging Studies Chest X-Ray 03/08/20 11:10 IMPRESSION: Stable examination. No acute abnormality is seen. Electronically Signed: Pablito Lloyd, at 12:07 EST , Service support , Chest CTA 03/08/20 11:41 IMPRESSION: Groundglass infiltrate seen in the posterolateral aspect of the right upper lobe as well as the right lower lobe superimposed on chronic interstitial fibrosis and honeycombing. Electronically Signed: Pablito Lloyd, at 12:25 EST , Service support , Laboratory Data 03/08/20 03/08/20 03/08/20 10:54 10:54 10:54 WBC 4.2 L RBC 4.02 L Hgb 12.5 L Hct 39.0 L MCV 97.0 H MCH 31.1 MCHC 32.1 RDW Std Deviation 57.1 H RDW Coeff of [place] 15.9 H Plt Count 126 L 4.0 Chloride 105 Carbon Dioxide 24.0 Anion Gap 7 BUN 30 H Creatinine 1.89 H Estim Creat Clear Calc 27.20 Est GFR (MDRD) Af Amer 44 L Est GFR (MDRD) Non-Af 36 L BUN/Creatinine Ratio 15.9 Glucose 83 Lactic Acid Calcium 8.9 Total Bilirubin 1.30 H AST 115 H ALT 86 H Alkaline Phosphatase 100 Lactate Dehydrogenase 247 H Total Creatine Kinase 45 C-React Prot Ext Range 68.50 H Total Protein 6.9 Albumin 2.9 L Globulin 4.0 Albumin/Globulin Ratio 0.7 L Procalcitonin 03/08/20 03/08/20 10:54 10:54 WBC RBC Hgb Hct MCV MCH MCHC RDW Std Deviation RDW Coeff of [place] Plt Count MPV Immature Gran % (Auto) Neut % (Auto) Lymph % (Auto) [place] % (Auto) Eos % (Auto) Baso % (Auto) Absolute Neuts (auto) Absolute Lymphs (auto) Nucleated RBC % Differential Comment Diff Path Review Fibrinogen D-Dimer Quant (PE/DVT) Sodium Potassium Chloride Carbon Dioxide Anion Gap BUN Creatinine Estim Creat Clear Calc Est GFR (MDRD) Af Amer Est GFR (MDRD) Non-Af BUN/Creatinine Ratio Glucose Lactic Acid 2.2 H* Calcium Total Bilirubin AST ALT Alkaline Phosphatase Lactate Dehydrogenase Total Creatine Kinase C-React Prot Ext Range Total Protein Albumin Globulin Albumin/Globulin Ratio Procalcitonin 0.14 H Emergency Department Course and Treatment: Patient's pulse ox was 87% on room air at rest. He is 94% on 2 L nasal cannula and is resting more comfortably. Patient stood to use the bedside commode and was very unsteady. His blood pressure dropped to 90/61. He was given a dose of dexamethasone IV. Treatment Plan: Patient will be discussed with Dr. Badillo and admitted for further evaluation and treatment. I did discuss the patient's CODE STATUS and he would like to be CCA, no intubation. Disposition: Admitted in serious condition. Impression: 1. COVID-19 infection. 2. Hypoxia. 3. Pancytopenia. 4. Hypotension. This note was generated with [employer] dictation software. It may contain incorrect words, spelling, and punctuation that were not noted in review of the chart prior to signing ED Disposition - Plan for ED Patient: Referrals: Abhijeet Medellin DO [Primary Care Provider] -
[2020-03-08 11:18] LABS: Fibrinogen 279 mg/dl (203-444)
[2020-03-08 11:28] LABS: ALB/GLOB Ratio 0.7 RATIO (0.9-2.4); AST(SGOT) 115 U/L (15-37); Alanine Aminotransfer ALT/SGPT 86 U/L (16-61); Albumin, Serum 2.9 g/dL (3.2-5.0); Alkaline Phosphatase 100 U/L (45-117); Anion Gap 7 (5-15); BUN 30 mg/dL (7-18); BUN/Creat Ratio 15.9 RATIO (10-20); CPK Total, Creatine Kinase 45 U/L (39-308); Calcium,Total 8.9 mg/dL (8.5-10.1); Chloride 105 mmol/L (98-107); Creatinine, Serum 1.89 mg/dL (0.70-1.30); EST Glomerular Filtration Rate 36 mL/min (>60); Est Glom Filt Rate - Afr Amer 44 mL/min (>60); Glucose 83 mg/dL (74-106); LDH 247 U/L (87-241); Lactic Acid 2.2 mmol/L (0.4-1.9); Protein, Total 6.9 g/dL (6.4-8.2); Sodium Level 136 mmol/L (136-145)
[2020-03-08 11:29] LABS: Differential Comment SCANNED
[2020-03-08 11:32] LABS: Procalcitonin 0.14 ng/mL (0.00-0.09)
[2020-03-08 11:40] LABS: D-Dimer Quantitative (DVT/PE) 6.05 FEU/ug/m (0.27-0.49)
--- NOTE | 2020-03-08 11:41 | CT_ITS ---
STUDY: CTA CHEST REASON FOR EXAM: Male, 84 years old. +COVID. INCREASE IN SOB RADIATION DOSAGE (If Supplied By Facility): CTDIvol = ( 12.23 ) mGy, DLP = ( 334.45 ) mGycm TECHNIQUE: The examination was performed with the intravenous administration of 75 ML ISOVUE 370. Post-processing of the angiographic images was performed, with multiplanar reformation and 3D reconstruction. Individualized dose optimization techniques were used for this CT. COMPARISON: Comparison is made with prior examination dated 08/29/2019. FINDINGS: Normal enhancement of the main pulmonary artery and right and left pulmonary arteries. Normal enhancement of the bilateral peripheral pulmonary arteries. There is no demonstrated pulmonary embolism. There is atherosclerotic calcification of the aortic arch with tortuosity. There is no demonstrated aortic dissection. There are calcifications of the coronary arteries. Left-sided pacemaker is seen. Normal mediastinum. Normal hilar regions. Normal visualized trachea and bronchi. Hyperinflation. Areas of groundglass appearance are seen in the posterior aspect of the right upper lobe as well as in the right lower lobe superimposed on chronic interstitial scarring with some multiple small blebs. Normal pleura. Normal chest wall structures. There are degenerative changes of thoracic spine. A cluster of cysts is seen in the upper medial aspect of the left lobe of the liver. The largest measures 4.7 cm x [address]/CTA Chest W/WO Contrast IMPRESSION: Groundglass infiltrate seen in the posterolateral aspect of the right upper lobe as well as the right lower lobe superimposed on chronic interstitial fibrosis and honeycombing. Electronically Signed: Pablito Lloyd, at 12:25 EST , Service support ,
--- NOTE | 2020-03-08 13:26 | PCM.HP.STD ---
Problem List (1) Pneumonia due to COVID-19 virus Status: Acute (2) Hypoxia Status: Acute (3) Elevated LFTs Status: Acute (4) Chronic anemia Status: Chronic (5) Chronic idiopathic thrombocytopenia Status: Chronic (6) Rheumatoid arthritis Status: Chronic Qualifiers: Rheumatoid arthritis location: unspecified site Rheumatoid factor presence: unspecified presence Qualified Code(s): M06.9 - Rheumatoid arthritis, unspecified (7) BPH (benign prostatic hyperplasia) Status: Chronic Qualifiers: Lower urinary tract symptom presence: unspecified whether lower urinary tract symptoms present Qualified Code(s): N40.0 - Benign prostatic hyperplasia without lower urinary tract symptoms (8) Cognitive impairment Status: Chronic (9) Mixed hyperlipidemia Status: Chronic (10) Essential hypertension Status: Chronic (11) Dilated cardiomyopathy Status: Chronic Comment: 15% EF (12) History of implantable cardioverter-defibrillator (ICD) placement Status: Chronic Comment: Implant: 06/2000; Generator change: 03/17/2008 (13) 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 Status: Chronic Qualifiers: Peripheral atherosclerosis location: unspecified extremity (14) Diabetes mellitus type 2 in nonobese Status: Chronic (15) Sustained ventricular tachycardia Status: Chronic (16) Hypothyroidism Status: Chronic Qualifiers: Hypothyroidism type: unspecified History of Present Illness Date of Admission: 03/08/20 Chief Complaint: Recent + COVID 02/29/20, weakness, dyspnea The patient is a 84 y/o M from the [facility] w/ PMHx: Rheumatoid arthritis, Chronic anemia/thrombocytopenia (mild), CKD stage IV, CAD s/p PCI LAD and diagonal, Dilated Cardiomyopathy s/p AICD, HTN, HLD, Diabetes mellitus type II, BPH, Hypothyroidism, Hx SVT, Diabetes mellitus type II who presents to the [facility] ED on 03/08/20 with history of recent diagnosis + COVID 02/29/20 with history of fever, chills, headaches, body aches, abdominal cramping, nausea, loose stools, decreased sense of taste and smell, cough and dyspnea which have now worsened prompting ED evaluation given significantly noted hypoxia with concern for treatment at facility. Work-up in the ED included T 99.2, heart rate 66, BP 109/63, respiratory rate 17, oxygenation 87% on room air with improvement to 93% on 2 L nasal cannula, CBC with WBC 4.2, hemoglobin 12.5, platelet 126 with lymphopenia, coags with fibrinogen 279, D-dimer 6.05, CMP with BUN/creatinine 30/1.89, lactic acid 2.2, total bilirubin 1.30, AST/ALT 115/86, alk phos 100, LDH 247, T CK 45, CRP 68.5, procalcitonin 0.14, blood culture x2 pending per ED, chest x-ray with no acute cardiopulmonary findings, follow-up CTPA with groundglass infiltrates in the posterior lateral aspect of the right upper lobe as well as the right lower lobe superimposed on chronic interstitial fibrosis and honeycombing. In the ED patient administered IV Decadron 6 mg x 1. Past Medical History Past Medical History (Chronic Problems): Chronic Problems (Last Reviewed 01/14/20 @ 10:56 by Migdalia Fisher) Cognitive impairment (Chronic) Chronic anemia (Chronic) Chronic idiopathic thrombocytopenia (Chronic) Rheumatoid arthritis (Chronic) BPH (benign prostatic hyperplasia) (Chronic) Presence of stent in coronary artery (Chronic ~09/23/06) PTCA and stenting of the LAD and diagonal 09/23/2006 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) Abnormal echocardiogram (Chronic) Mixed hyperlipidemia (Chronic) Atherosclerotic heart disease of red devil coronary artery without angina pectoris (Chronic) PTCA and stenting of the LAD and diagonal 09/23/2006 Essential hypertension (Chronic) Mixed sleep apnea (Chronic) BiPAP 17/11 mm of water with a backup rate of 12 Hypersomnolence disorder (Chronic) Dilated cardiomyopathy (Chronic) 15% EF Paroxysmal ventricular tachycardia (Chronic) Abnormal result of cardiovascular function study, unspecified (Chronic) 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) Implant: 06/2000; Generator change: 03/17/2008 Hypothyroidism, iatrogenic (Chronic) 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 (Chronic) Chronic renal failure, stage 3 (moderate) (Chronic) Diabetes mellitus type 2 in nonobese (Chronic) Sustained ventricular tachycardia (Chronic) Hypothyroidism (Chronic) Cardiomyopathy (Chronic) Medical History: Medical History (Last Reviewed 01/14/20 @ 10:56 by Migdalia Fisher) Abnormal echocardiogram (Chronic) R93.1 Mixed hyperlipidemia (Chronic) E78.2 Atherosclerotic heart disease of red devil coronary artery without angina pectoris (Chronic) I25.10 PTCA and stenting of the LAD and diagonal 09/23/2006 Essential hypertension (Chronic) I10 Dilated cardiomyopathy (Chronic) I42.0 15% EF Paroxysmal ventricular tachycardia (Chronic) I47.2 Abnormal result of cardiovascular function study, unspecified (Chronic) R94.30 Hypothyroidism, iatrogenic (Chronic) E03.2 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 (Chronic) I70.219 Chronic renal failure, stage 3 (moderate) (Chronic) N18.3 Diabetes mellitus type 2 in nonobese (Chronic) E11.9 Sustained ventricular tachycardia (Chronic) I47.2 Hypothyroidism (Chronic) E03.9 Cardiomyopathy (Chronic) I42.9 Fatigue (Resolved) R53.83 History of left heart catheterization (LHC) Onset Date: ~11/16/19 Z98.890 1- Per Cath 11/16/19: LEFT MAIN: distal: eccentric: 25 % Stenosis; LEFT ANTERIOR DESCENDING ARTERY: PROX LAD: Previously placed stent is patent with mild luminal irregularities; MID LAD: Previously placed stent has an instent s/p DX: 50 % restenosis, Mild luminal irregularities; DIAGONAL 2: Proximal - Previously placed stent is patent with mild luminal irregularities; CIRCUMFLEX ARTERY:PROX CIRC: Mild calcification, eccentric: 25 % Stenosis, Previously placed stent is patent with mild luminal irregularities; OM 1: Proximal - small caliber vessel: 25 % Stenosis OM 2: Mid - Mild luminal irregularities; RIGHT CORONARY ARTERY:PROX RCA: diffuse: eccentric: 25 % Stenosis MID RCA: eccentric: 50 % Stenosis; DISTAL RCA: diffuse: eccentric: 10 - 25 % Stenosis; RT PDA: Proximal - Mild luminal irregularities - Per Cath 06/18/19- LEFT MAIN: distal: eccentric: 25 % Stenosis; LEFT ANTERIOR DESCENDING ARTERY: PROX LAD: Previously placed stent is patent with mild luminal irregularities, Previously placed stent has an instent proximal: 25 - 50 % restenosis, MID LAD: Mild luminal irregularities; DIAGONAL 1: Proximal - Previously placed stent is patent with mild luminal irregularities; CIRCUMFLEX ARTERY: PROX CIRC: eccentric: 25 % Stenosis, Previously placed stent is patent with mild luminal irregularities; OM 1: Proximal - 25 % Stenosis (small caliber vessel), OM 2: Mid - Mild luminal irregularities; RIGHT CORONARY ARTERY: PROX RCA: diffuse: eccentic: 25 % Stenosis, MID RCA: eccentric: 25 - 50 % Stenosis, DISTAL RCA: diffuse: eccentric: 10 - 25 % Stenosis; RT PDA: Proximal - Mild luminal irregularities. - Per cath 01/05/19- LEFT MAIN: distal: eccentric: 25 % Stenosis; LEFT ANTERIOR DESCENDING ARTERY: PROX LAD: Previously placed stent is patent with minimal luminal irregularities, MID LAD: Mild luminal irregularities, 25 % Stenosis, DISTAL LAD: Mild luminal irregularities; DIAGONAL 1: Proximal - Previously placed stent is patent with minimal luminal irregularities; CIRCUMFLEX ARTERY: PROX CIRC: Previously placed stent is patent with minimal luminal irregularities, OM 2: Mid - Mild luminal irregularities, RIGHT CORONARY ARTERY: Mild luminal irregularities, PROX RCA: diffuse: eccentric: 25 % Stenosis, MID RCA: eccentric: 25 - 50 % Stenosis, DISTAL RCA: diffuse: eccentric: 10 - 25 % Stenosis; RT PDA: Proximal - Mild luminal irregularities. Myalgia (Resolved) M79.1 Near syncope R55 Acute renal failure superimposed on stage 3 chronic kidney disease N17.9, N18.3 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 Dehydration E86.0 Shortness of breath R06.02 Allergies atorvastatin [From Lipitor] Adverse Reaction (Verified 03/08/20 12:20) myalgia leflunomide [From Arava] Adverse Reaction (Verified 03/08/20 12:20) PROBLEMS WITH MY FEET simvastatin [From Zocor] Adverse Reaction (Verified 03/08/20 12:20) myalgia Home Medications: Ambulatory Orders Medication Instructions Recorded Carvedilol [Coreg (Beta Karri)] 3.125 mg PO BID 02/20/20 Clopidogrel Bisulfate [Clopidogrel] 75 mg PO DAILY 02/20/20 Colchicine 0.6 mg PO DAILY 02/20/20 Finasteride 5 mg PO DAILY 02/20/20 Hydroxychloroquine [Plaquenil] 200 mg PO DAILYCM 02/20/20 Isosorbide Mononitrate [Imdur] 30 mg PO DAILY 02/20/20 Nitroglycerin 0.4 mg SL Q5M PRN 02/20/20 Pravastatin Sodium 20 mg PO DAILY 02/20/20 Prednisone 5 mg PO DAILY 02/20/20 Tamsulosin HCl 0.4 mg PO DAILY 02/20/20 Amiodarone HCl [Cordarone] 200 mg PO DAILY 03/08/20 Ascorbic Acid [Vitamin C] 500 mg PO DAILY 03/08/20 Aspirin E.C. [Ecotrin] 81 mg PO DAILY@0800 03/08/20 Cholecalciferol (Vitamin D3) 10,000 unit PO DAILY 03/08/20 [Vitamin D3] Donepezil HCl 10 mg PO QHS 03/08/20 Levothyroxine [Synthroid] 75 mcg PO DAILY@0600 03/08/20 Loperamide [Imodium] 4 mg PO Q6H PRN PRN 03/08/20 Melatonin 5 mg PO QHS 03/08/20 Zinc 50 mg PO DAILY 03/08/20 Surgical History: Surgical History (Last Reviewed 01/14/20 @ 10:56 by Migdalia Fisher) Presence of stent in coronary artery (Chronic) Onset Date: ~09/23/06 Z95.5 PTCA and stenting of the LAD and diagonal 09/23/2006 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) Z95.810 Implant: 06/2000; Generator change: 03/17/2008 History of appendectomy Z98.890, Z90.49 Presence of coronary angioplasty implant and graft Onset Date: ~09/23/06 Z95.5 PTCA and stenting of the LAD and diagonal 09/23/2006 Surgical History: angioplasty, appendectomy, pacemaker implantation, - - AICD, appendectomy, PCI x2. Psychiatric History: No pertinent psych hx Lives: [facility] Smoking Status: Former smoker - Patient quit smoking 20 years prior to current presentation he notes starting when he was a teenager at approximately 17 or 18 and smoked 1/2 pack/day cigarette tobacco usage ongoing until he quit. Tobacco Use: Cigarettes Alcohol: None - Patient notes drinking no alcohol currently but in the past did drink occasionally. Drugs: None - *Family History Paternal Family History: Family History (Last Reviewed 01/14/20 @ 10:56 by Migdalia Fisher) Mother Alzheimers disease Brother Cancer Brother Hypertension Brother CAD (coronary artery disease) Sister CAD (coronary artery disease) Sister Breast cancer History Items: Pulmonary Disease - Father with history of significant chronic emphysema, s/p lobectomy. Maternal Family History: Family History (Last Reviewed 01/14/20 @ 10:56 by Migdalia Fisher) Mother Alzheimers disease Brother Cancer Brother Hypertension Brother CAD (coronary artery disease) Sister CAD (coronary artery disease) Sister Breast cancer History Items: Dementia, Heart Disease, Stroke Sibling Family History: Family History (Last Reviewed 01/14/20 @ 10:56 by Migdalia Fisher) Mother Alzheimers disease Brother Cancer Brother Hypertension Brother CAD (coronary artery disease) Sister CAD (coronary artery disease) Sister Breast cancer History Items: Heart Disease Offspring Family History: Family History (Last Reviewed 01/14/20 @ 10:56 by Migdalia Fisher) Mother Alzheimers disease Brother Cancer Brother Hypertension Brother CAD (coronary artery disease) Sister CAD (coronary artery disease) Sister Breast cancer History Items: No pertinent history Review of Systems Constitutional: Reports: Anorexia, Chills, Fever, Malaise, Weakness, Weight Change, Fatigue HEENT: Reports: Head Aches, Sinus Congestion, - - Alteration to his sense of taste and smell.. Denies: Sinus Drainage Cardiovascular: Denies: Chest Pain, Palpitations Respiratory: Reports: Cough, Shortness of Breath, Shortness of breath at rest, Shortness of breath upon exertion. Denies: Sputum production, Wheezing Gastrointestinal: Reports: Abdominal Pain, Diarrhea, Nausea. Denies: Vomiting Genitourinary: Denies: Dysuria Musculoskeletal: Reports: Back Pain, Joint Pain, Muscle pain. Denies: Joint Tenderness Skin: Denies: Rash, Wounds Neurological: Denies: Numbness, Tingling, Focal weakness Psychiatric: Denies: Anxiety, Depression, Homicidal Ideations, Suicidal Ideations Hematologic/ Lymphatic: Reports: Anemia, Easy Bruising, Easy Bleeding VTE Information - Inpt Only VTE Present on Admission: No VTE Mechan Device Prophylaxis: SCD's VTE Pharm Prophylaxis ordered?: Yes Patient Problems: Active and Suspected Problems (Last Reviewed 01/14/20 @ 10:56 by Migdalia Fisher) Hypoxia (Acute) Pneumonia due to COVID-19 virus (Acute) Elevated LFTs (Acute) Subjective: Patient seated upright in the ED bed, fatigued and ill-appearing, denies any acute stress at this time. Objective: Physical Examination: General: awake, alert, oriented x [address], recent events, month, appears appropriately oriented, remains cooperative, seated upright in the ED bed, fatigued and ill-appearing. Skin: normal color, turgor, no icterus, cyanosis except significantly very staged ecchymoses to extremities. HEENT: AT/NC, EOMI, PERRLA, dry MM, no carotid bruits or JVD noted. Lungs: Diminished breath sounds bilaterally, greater bases, moderate effort, no evidence of distress, no rales, ronchi or wheezing. Heart: Regular rate and rhythm; no gallop, rub audible. Abdomen: soft, mild generalized discomfort with palpation but no rebound or guarding, ND, moderately hyperactive BS, no HSM. Extremities: no cyanosis, clubbing, or edema. Neurological: patient awake, alert, oriented as noted; cognitive function appears intact despite history listed of dementia; pupils equally reactive to light and accomodation; cranial nerves II-XII grossly normal, moving all 4 extremities, no focal deficits, strength severely global decrease secondary to acute presentation and illness. Psychiatric: affect appears fatigued, ill-appearing, no acute evidence of depressive or anxiety feelings. - Physical Exam Vitals/I&O's: Vital Signs Temp Pulse Resp BP Pulse Ox 99 F 64 17 100/78 93 03/08/20 11:51 03/08/20 11:51 03/08/20 11:51 03/08/20 11:51 03/08/20 11:51 Oxygen Flow Rate (L/min) 2 Oxygen Delivery Method Nasal Cannula Weight: 169 lb 12.095 oz Body Mass Index (BMI) 26.6 Laboratory Results 03/08/20 10:54: WBC 4.2 L, RBC 4.02 L, Hgb 12.5 L, Hct 39.0 L, MCV 97.0 H, MCH 31.1, MCHC 32.1, RDW Std Deviation 57.1 H, RDW Coeff of Arcelia 15.9 H, Plt Count 126 L, MPV 9.4, Immature Gran % (Auto) 0.500, Neut % (Auto) 82.2 H, Lymph % (Auto) 10.2 L, Clayton % (Auto) 6.7, Eos % (Auto) 0.2, Baso % (Auto) 0.2, Absolute Neuts (auto) 3.5, Absolute Lymphs (auto) 0.43 L, Nucleated RBC % 0, Differential Comment SCANNED, Diff Path Review June03/08/20 10:54: Fibrinogen 279, D-Dimer Quant (PE/DVT) 6.05 H* 03/08/20 10:54: Sodium 136, Potassium 4.0, Chloride 105, Carbon Dioxide 24.0, Anion Gap 7, BUN 30 H, Creatinine 1.89 H, Estim Creat Clear Calc 27.20, Est GFR (MDRD) Af Amer 44 L, Est GFR (MDRD) Non-Af 36 L, BUN/Creatinine Ratio 15.9, Glucose 83, Calcium 8.9, Total Bilirubin 1.30 H, AST 115 H, ALT 86 H, Alkaline Phosphatase 100, Lactate Dehydrogenase 247 H, Total Creatine Kinase 45, C-React Prot Ext Range 68.50 H, Total Protein 6.9, Albumin 2.9 L, Globulin 4.0, Albumin/Globulin Ratio 0.7 L 03/08/20 10:54: Lactic Acid 2.2 H* 03/08/20 10:54: Procalcitonin 0.14 H Assessment/Plan All Active Problems (Last Reviewed 01/14/20 @ 10:56 by Migdalia Fisher) Orthostatic hypotension (Acute) Generalized weakness (Acute) Hypoxia (Acute) Pneumonia due to COVID-19 virus (Acute) Elevated LFTs (Acute) Exertional angina (Acute) Unstable angina (Acute) Dysrhythmia, cardiac (Acute) Chest pain (Acute) Angina pectoris (Acute) Acute on chronic combined systolic and diastolic heart failure (Resolved) Chest pain (Resolved) Fatigue (Resolved) Hypoxia (Resolved) Myalgia (Resolved) The patient is a 84 y/o M from the [facility] w/ PMHx: Rheumatoid arthritis, Chronic anemia/thrombocytopenia (mild), CKD stage IV, CAD s/p PCI LAD and diagonal, Dilated Cardiomyopathy s/p AICD, HTN, HLD, Diabetes mellitus type II, BPH, Hypothyroidism, Hx SVT, Diabetes mellitus type II who presents to the [facility] ED on 03/08/20 with history of recent diagnosis + COVID 02/29/20 with history of fever, chills, headaches, body aches, abdominal cramping, nausea, loose stools, decreased sense of taste and smell, cough and dyspnea which have now worsened. 1. Acute Hypoxia, Leukopenia, Lymphopenia (Pancytopenia given chronic issues as noted below) secondary to Acute Pneumonia secondary to Acute Viral Syndrome, COVID-19: Patient with leukopenia, lymphopenia, chest x-ray with no acute cardiopulmonary findings, follow-up CTPA with groundglass infiltrates in the posterior lateral aspect of the right upper lobe as well as the right lower lobe superimposed on chronic interstitial fibrosis and honeycombing, will admit to the COVID unit, will maintain on oxygen with wean as tolerated to room air, PRN albuterol, HOB, IS parameters w/ pending sputum cultures, respiratory viral panel and urine antigens, ED obtained COVID admission planel already including CRP, CPK, LDH, will obtain troponin, BNP levels, initiate IV Decadron and consult Infectious disease for consideration Remdesivir, continue supportive care including q 2 hour turning including prone given no prone bed availability and judicious hydration, closely monitor for worsening status for ARDS and multiorgan failure. Bld cx x 2 obtained in the ED. 2. Elevated LFTs, bilirubin: Secondary to #1, admission bilirubin 1.30, AST/ALT 115/86, alk phos 100, continue treatment as noted #1 and trend CMP. 3. Chronic anemia: MCV mildly elevated, admission hemoglobin 12.5, most recently 12.1, baseline more recently appears 12-13, stable, trend. 4. Chronic thrombocytopenia, mild: Admission platelets 126, previously 1 30-1 50s, mildly decreased likely secondary to acute presentation also is noted continue to trend. 5. CAD: Status post PCI x2, continue aspirin, Plavix, Coreg, statin therapy. Not on LOGAN inhibitor or ARB per review. 6. Dilated cardiomyopathy: Status post AICD with history also noted of SVT, continue aspirin, statin, Coreg regimen. 7. History SVT: As noted status post AICD, continue amiodarone, Coreg regimen. 8. Hypertension: Continue home regimen including Coreg, isosorbide with hold parameters given lower BP noted in the ED, PRN hydralazine. 9. Hyperlipidemia: Continue home statin regimen. 10. Hypothyroidism: Continue home synthroid regimen. 11. Rheumatoid arthritis: We will continue patient home Plaquenil regimen, hold prednisone given usage of IV Decadron, resume once appropriate. 12. Gout: We will continue patient home colchicine regimen. 13. History of Diabetes mellitus type II: Not on regimen, will obtain hemoglobin A1c, will allow cardiac diet and defer Accu-Cheks with sliding scale pending this level. 14. Chronic Kidney Disease Stage IV: Admission BUN/Cr 30/1.89, baseline renal function primarily 1.9-2.2, repeat BMP in AM. 15. BPH: We will continue patient on Flomax and finasteride regimen. 16. Dementia, unclear type with unclear behavioral disturbance history: We will continue patient home donepezil regimen. Maintain on fall precautions. 17. DVT prophylaxis: SCDs, renally dosed Lovenox. 18. CODE status: Patient HCPOA is he believes Irene Fernandez his daughter and notes that living will is also in place. Patient is oriented times greater than [address], recent events, year and month. Given patient appropriate orientation discussed CODE status at length including difference between FULL code, DNR-CCA and DNR-CC status. Following discussions about the differences in these status, requested specifically DNR-CCA, no intubation status. Advanced Care Planning Face to Face Time: 16 minutes. Inpatient E&M: 26784 Init Hosp L3 Procedures: [id number] Advncd Care Plan 30 Min
[2020-03-08] MEDS: dexAMETHasone 10 MG/ML Vial 6 MG IV (13:35)
--- NOTE | 2020-03-08 13:44 | NURSING ---
MS2 COVID WHITE COVID, HYPOXIA
--- NOTE | 2020-03-08 14:32 | PCS.PANDOC ---
PANDEMIC DOCUMENTATION INITIATED: Date: 03/08/2020 Time: 1430
[2020-03-08 14:51] LABS: Magnesium 1.9 mg/dL (1.6-2.6)
[2020-03-08 14:56] LABS: Hemoglobin A1c 5.2 % (3.8-5.6)
[2020-03-08 15:05] LABS: Reflex Lactate? Y
[2020-03-08 15:07] LABS: BNP,B-Type NATRIURETIC PEPTIDE 137.6 pg/mL (0-100)
[2020-03-08] MEDS: 0.9% Normal Saline 1,000 ML 100 ML IV (15:39)
[2020-03-08 16:07] LABS: Lactic Acid 1.4 mmol/L (0.4-1.9)
[2020-03-08] MEDS: Tamsulosin HCl 0.4 MG Capsule PO (17:30)
[2020-03-08] MEDS: Pravastatin 20 MG Tablet PO (20:48)
[2020-03-08] MEDS: Carvedilol 3.125 MG TABLET PO (20:48)
[2020-03-08] MEDS: Donepezil HCl 10 MG Tablet PO (20:48)
[2020-03-08] MEDS: MELATONIN 10 MG TABLET 5 MG PO (20:48)
[2020-03-09] VITALS (8 sets, daily range): BP systolic 105–133; BP diastolic 58–73; PULSE 60–72; RESP 16–20; TEMP 36.4–36.9; O2SAT 95–97
[2020-03-09] MEDS: Albuterol Sulfate 8 gm Inhaler (60 puffs) INHALATION (00:40)
[2020-03-09] MEDS: Loperamide 2 MG Capsule 4 MG PO (00:48)
[2020-03-09] MEDS: guaiFENesin 10 ML UDC (200MG/10ML) 20 ML PO (00:49)
[2020-03-09 05:41] LABS: Absolute Lymphocyte Count 0.23 X10^3/uL (0.83-4.51); Absolute Neutrophil Count 3.6 X10^3/uL (2.0-7.7); Hematocrit 36.1 % (40-54); Hemoglobin 11.7 g/dL (13.0-16.5); Lymphocyte # 0.23 X10^3/ul (4.0); Lymphocyte % 5.5 % (19-41); Mean Corp Hgb Conc 32.4 g/dL (32-36); Mean Corpuscular Hgb 31.5 pg (27.0-32.0); Mean Corpuscular Volume 97.3 fL (80-94); Mean Platelet Vol. 9.4 fl (6.2-12.0); Monocyte# 0.31 X10^3/uL; Monocyte% 7.5 % (0-10); NRBC Flagged by Analyzer 0 % (0-5); Neutrophil # 3.59 X10^3/uL (2.7-7.7); Neutrophil % 86.5 % (47-70); POSITIVE DIFFERENTIAL YES; Platelet Count 112 K/mm3 (150-450); RBC Distribution Width CV 15.8 % (11.6-14.6); RBC Distribution Width SD 56.8 fl (35.1-43.9); Red Blood Count 3.71 M/mm3 (4.6-6.2); White Blood Count 4.2 K/mm3 (4.4-11.0)
[2020-03-09 05:51] LABS: Differential Indicated SCAN CRITERIA MET
[2020-03-09 06:06] LABS: ALB/GLOB Ratio 0.7 RATIO (0.9-2.4); AST(SGOT) 100 U/L (15-37); Alanine Aminotransfer ALT/SGPT 79 U/L (16-61); Albumin, Serum 2.6 g/dL (3.2-5.0); Alkaline Phosphatase 91 U/L (45-117); Anion Gap 9 (5-15); BUN 36 mg/dL (7-18); BUN/Creat Ratio 22.4 RATIO (10-20); Calcium,Total 8.3 mg/dL (8.5-10.1); Chloride 106 mmol/L (98-107); Creatinine, Serum 1.61 mg/dL (0.70-1.30); EST Glomerular Filtration Rate 44 mL/min (>60); Est Glom Filt Rate - Afr Amer 53 mL/min (>60); Estimated Creatinine Clearance 35.89 ml/min; Globulin 3.5 g/dL (2.2-4.2); Glucose 97 mg/dL (74-106); Potassium 3.7 mmol/L (3.5-5.1); Protein, Total 6.1 g/dL (6.4-8.2); Sodium Level 136 mmol/L (136-145)
--- NOTE | 2020-03-09 07:55 | PN_ITS ---
Patient Problems: Active and Suspected Problems (Last Reviewed 01/14/20 @ 10:56 by Migdalia Fisher) Hypoxia (Acute) Pneumonia due to COVID-19 virus (Acute) Elevated LFTs (Acute) Reason for Visit: Seen and examined. Patient has multiple comorbidities and recurrent admissions in this hospital in the recent past. Currently admitted for shortness of breath, cough and fever for about 8 days. He said he might have got from this hospital but he was discharged on 02/21 when he was admitted for orthostatic hypotension. Physical exam General: Alert, Oriented x3, Cooperative. Short of breath HEENT: Atraumatic, PERRLA, EOMI, Normocephalic Oral: No Gingival or Mucosal Lesions/ Ulcerations Neck: Supple, No JVD, Negative Carotid Bruits Lungs: Air entry grossly diminished in bilateral lung bases. Bilateral expiratory wheezing and rhonchi. 2 L of oxygen Cardiovascular: Regular rate, Regular Rhythm, Normal S1, Normal S2, systolic murmur over LLSB Abdomen: Bowel Sounds Present, Soft, Non Tender, Non-Distended : No renal angle tenderness. No suprapubic tenderness. Extremities: No edema, Capillary Refill Less than 3 Seconds Skin: Bruising both arms. No rashes, No breakdown Musculoskeletal: No Tenderness to Palpation of Joints or Extremities. Loss of subcutaneous fat with mild to moderate muscle atrophy of extremities. Neurological: Cranial nerves II-XII grossly intact, Deep Tendon Reflexes 2+/4 and Symmetrical, Neuro grossly intact Psych/Mental Status: Flat affect. Vitals/I&O's: Vital Signs Temp Pulse Resp BP Pulse Ox 98.5 F 62 16 105/58 L 95 03/09/20 04:50 03/09/20 04:50 03/09/20 04:50 03/09/20 04:50 03/09/20 04:50 Oxygen Flow Rate (L/min) 2 Oxygen Delivery Method Nasal Cannula Weight: 163 lb 12.855 oz Body Mass Index (BMI) 22.7 Intake and Output for Last 24 Hours 03/07/20 03/08/20 03/09/20 23:59 23:59 23:59 Intake Total 620 / 620 1360 / 1360 Output Total 50 / 50 150 / 150 Balance 570 / 570 1210 / 1210 Microbiology Past 72 Hours 03/08/20 22:50 Urine, Clean Catch Legionella Antigen - Final 03/08/20 22:50 Urine, Clean Catch Streptococcus pneumoniae Antigen (M - Final 03/08/20 15:25 Mucosa - Nasopharyngeal Respiratory Panel (PCR) - Final Laboratory Results 03/08/20 10:54: WBC 4.2 L, RBC 4.02 L, Hgb 12.5 L, Hct 39.0 L, MCV 97.0 H, MCH 31.1, MCHC 32.1, RDW Std Deviation 57.1 H, RDW Coeff of [place]cel[place] 15.9 H, Plt Count 126 L, MPV 9.4, Immature Gran % (Auto) 0.500, Neut % (Auto) 82.2 H, Lymph % (Auto) 10.2 L, [place] % (Auto) 6.7, Eos % (Auto) 0.2, Baso % (Auto) 0.2, Absolute Neuts (auto) 3.5, Absolute Lymphs (auto) 0.43 L, Nucleated RBC % 0, Differential Comment SCANNED, Diff Path Review June03/08/20 10:54: Fibrinogen 279, D-Dimer Quant (PE/DVT) 6.05 H* 03/08/20 10:54: Sodium 136, Potassium 4.0, Chloride 105, Carbon Dioxide 24.0, Anion Gap 7, BUN 30 H, Creatinine 1.89 H, Estim Creat Clear Calc 27.20, Est GFR (MDRD) Af Amer 44 L, Est GFR (MDRD) Non-Af 36 L, BUN/Creatinine Ratio 15.9, Glucose 83, Calcium 8.9, Total Bilirubin 1.30 H, AST 115 H, ALT 86 H, Alkaline Phosphatase 100, Lactate Dehydrogenase 247 H, Total Creatine Kinase 45, C-React Prot Ext Range 68.50 H, Total Protein 6.9, Albumin 2.9 L, Globulin 4.0, Albumin/Globulin Ratio 0.7 L 03/08/20 10:54: Lactic Acid 2.2 H* 03/08/20 10:54: Procalcitonin 0.14 H 03/08/20 10:54: Magnesium 1.9, Troponin I 0.019 03/08/20 10:54: Hemoglobin A1c 5.2 03/08/20 10:54: B-Natriuretic Peptide 137.6 H 03/08/20 15:25: Lactic Acid 1.4 03/09/20 05:28: WBC 4.2 L, RBC 3.71 L, Hgb 11.7 L, Hct 36.1 L, MCV 97.3 H, MCH 31.5, MCHC 32.4, RDW Std Deviation 56.8 H, RDW Coeff of [place] 15.8 H, Plt Count 112 L, MPV 9.4, Immature Gran % (Auto) 0.500, Neut % (Auto) 86.5 H, Lymph % (Auto) 5.5 L, [place] % (Auto) 7.5, Eos % (Auto) 0.0, Baso % (Auto) 0.0, Absolute Neuts (auto) 3.6, Absolute Lymphs (auto) 0.23 L, Nucleated RBC % 0, Diff Path Review June03/09/20 05:28: Sodium 136, Potassium 3.7, Chloride 106, Carbon Dioxide 21.0, Anion Gap 9, BUN 36 H, Creatinine 1.61 H, Estim Creat Clear Calc 35.89, Est GFR (MDRD) Af Amer 53 L, Est GFR (MDRD) Non-Af 44 L, BUN/Creatinine Ratio 22.4 H, Glucose 97, Calcium 8.3 L, Total Bilirubin 1.00, AST 100 H, ALT 79 H, Alkaline Phosphatase 91, Total Protein 6.1 L, Albumin 2.6 L, Globulin 3.5, Albumin/Globulin Ratio 0.7 L Current Medications Acetaminophen (Acetaminophen 325 Mg Tablet) 650 mg PO Q4H PRN PRN PRN Reason: Pain Score 1-10/Temp > 100.7 F Acetaminophen (Acetaminophen 650 Mg Suppository) 650 mg RECTAL Q4H PRN PRN PRN Reason: Pain Score 1-10/Temp > 100.7 F Al Hydroxide/Mg Hydroxide (Mag Hydrox/Al Hydrox/Simeth 30 Ml Udc) 30 ml PO Q6H PRN PRN PRN Reason: Gastric Burning Albuterol Sulfate (Albuterol Sulfate 8 Gm Inhaler (60 Puffs)) 4 - 8 puff INHALATION Q4H PRN PRN PRN Reason: Dyspnea, wheezing Last Admin: 03/09/20 00:40 Dose: 4 puff Documented by: Amiodarone HCl (Amiodarone 200 Mg Tablet) 200 mg PO DAILY [facility] Aspirin (Aspirin E.C. 81 Mg Tablet) 81 mg PO DAILY [facility] Carvedilol (Carvedilol 3.125 Mg Tablet) 3.125 mg PO BID [facility] Last Admin: 03/08/20 20:48 Dose: 3.125 mg Documented by: Clopidogrel Bisulfate (Clopidogrel Bisulfate 75 Mg Tablet) 75 mg PO DAILY [facility] Colchicine (Colchicine 0.6 Mg Tablet) 0.6 mg PO DAILY [facility] Dexamethasone Sodium Phosphate (Dexamethasone 10 Mg/Ml Vial) 6 mg IV DAILY [facility] Stop: 03/18/20 10:01 Donepezil HCl (Donepezil Hcl 10 Mg Tablet) 10 mg PO QHS [facility] Last Admin: 03/08/20 20:48 Dose: 10 mg Documented by: Enoxaparin Sodium (Enoxaparin 30 Mg/0.3 Ml Syringe) 30 mg SC DAILY [facility] Finasteride (Finasteride 5 Mg Tablet) 5 mg PO DAILY [facility] Guaifenesin (Guaifenesin 10 Ml Udc (200mg/10ml)) 20 ml PO Q4H PRN PRN PRN Reason: COUGH Last Admin: 03/09/20 00:49 Dose: 20 ml Documented by: Hydralazine HCl (Hydralazine 20 Mg/Ml Vial) 10 mg IV Q4H PRN PRN PRN Reason: SBP > 160 Hydroxychloroquine Sulfate (Hydroxychloroquine 200 Mg Tablet) 200 mg PO DAILY [facility] Remdesivir 100 mg/ Sodium (Chloride) 250 mls @ 125 mls/hr IV DAILY [facility]; Protocol Stop: 03/12/20 11:59 Isosorbide Mononitrate (Isosorbide Mononitrate 30 Mg Tablet) 30 mg PO DAILY [facility] Levothyroxine Sodium (Levothyroxine 75 Mcg Tablet) 75 mcg PO DAILY [facility] Loperamide HCl (Loperamide 2 Mg Capsule) 4 mg PO Q6H PRN PRN PRN Reason: Diarrhea Last Admin: 03/09/20 00:48 Dose: 4 mg Documented by: Magnesium Hydroxide (Magnesium Hydroxide 30 Ml Udc) 30 ml PO DAILY PRN PRN PRN Reason: Constipation Melatonin (Melatonin 10 Mg Tablet) 5 mg PO QHS [facility] Last Admin: 03/08/20 20:48 Dose: 5 mg Documented by: Nitroglycerin (Nitroglycerin (Inpatient Use) 0.4 Mg Tab.Subl) 0.4 mg SUBLINGUAL Q5M PRN PRN Reason: CARDIAC/CHEST PAIN Ondansetron HCl (Ondansetron 4 Mg/2 Ml Vial) 4 mg IV Q8H PRN PRN PRN Reason: NAUSEA/VOMITING Pravastatin Sodium (Pravastatin 20 Mg Tablet) 20 mg PO QHS [facility] Last Admin: 03/08/20 20:48 Dose: 20 mg Documented by: Prochlorperazine Edisylate (Prochlorperazine 10 Mg/2 Ml Vial) 5 mg IV Q4H PRN PRN PRN Reason: Breakthrough nausea/vomiting Psyllium Hydrophilic Mucilloid (Psyllium 1 Packet) 1 packet PO DAILY PRN PRN PRN Reason: Constipation Senna/Docusate Sodium (Senna/Docusate Sodium 1 Tablet) 2 tablet PO BID PRN PRN PRN Reason: Constipation Sodium Chloride (0.9% Saline Lock 10 Ml Syringe) 10 - 40 ml IV UD PRN PRN Reason: SALINE FLUSH Tamsulosin HCl (Tamsulosin Hcl 0.4 Mg Capsule) 0.4 mg PO DAILY@1730 [facility] Last Admin: 03/08/20 17:30 Dose: 0.4 mg Documented by: Throat Lozenges (Benzocaine/Menthol 1 Lozenge) 1 lozenge MUCOUS MEM Q2H PRN PRN PRN Reason: SORE THROAT STROKE Vital Signs/Narrative: Vital Signs Temp Pulse Resp BP Pulse Ox 03/09/20 04:50 98.5 F 62 16 105/58 L 95 Medical Necessity - Tobacco Use Smoking Status: Former smoker - Patient quit smoking 20 years prior to current presentation he notes starting when he was a teenager at approximately [age] and smoked 1/2 pack/day cigarette tobacco usage ongoing until he quit. Tobacco Use: Cigarettes Assessment/Plan All Active Problems (Last Reviewed 01/14/20 @ 10:56 by Migdalia Fisher) Orthostatic hypotension (Acute) Generalized weakness (Acute) Hypoxia (Acute) Pneumonia due to COVID-19 virus (Acute) Elevated LFTs (Acute) Exertional angina (Acute) Unstable angina (Acute) Dysrhythmia, cardiac (Acute) Chest pain (Acute) Angina pectoris (Acute) Acute on chronic combined systolic and diastolic heart failure (Resolved) Chest pain (Resolved) Fatigue (Resolved) Hypoxia (Resolved) Myalgia (Resolved) The patient is 84-year-old gentleman with history of chronic combined heart failure, EF 20%, coronary artery disease paroxysmal V. tach, CKD stage IV and other comorbidities was admitted 03/08 with fever, chills headaches, generalized myalgia, abdominal cramping, nausea and loose stool decreased sense of taste and smell cough and dyspnea consistent with COVID-19 pneumonia. 1. Acute respiratory insufficiency and severe sepsis secondary to COVID-19 pneumonia: Patient diagnosed with Covid on 02/29/2020. Has pancytopenia. Leukopenia with lateral lymphopenia, ALC 0.23 thousand. Platelet count 112,000. D-dimer elevated 6.05. On Decadron and remdesivir. D-dimer is elevated 6.05. Fibrinogen normal. Lactic acid 2.2, repeat normal. Liver chemistry shows elevated transaminases but normal bilirubin. Elevated inflammatory markers CRP, LDH and BNP. ID consult. 2. CKD stage IV: Admitted with BUN/creatinine 27/1.89. BUN/creatinine improving. Electrolytes are within acceptable limit. 3. Cardiovascular conditions: Coronary artery disease status post LAD stent, ischemic cardiomyopathy, EF 20%, paroxysmal V. tach: Echo on 11/02/2019: Mildly dilated left ventricle. Severe segmental systolic dysfunction (see wall motion). The estimated ejection fraction is 20 %. Mild concentric left ventricular hypertrophy. Apical false tendon noted. The left atrium is mildly enlarged. Mild diffuse mitral valve thickening. Mild papillary muscle dysfunction of the mitral valve. Trivial mitral valve insufficiency. Mild tricuspid valve insufficiency. Mild focal aortic valve calcification. Mild-Moderate (1-2+) aortic valve insufficiency. Mild (1+) pulmonic valve insufficiency. Right ventricular systolic pressure estimated to be 30 mmHg. Diastolic function is indeterminate. Patient home cardiac medications continued. On amiodarone, carvedilol, Plavix, 4. Acute COVID-19 viral hepatitis: ALT 79, AST 100, total bili normal. Hypothyroidism, continue levothyroxine 5. Chronic arthritis, unclear if this is rheumatoid arthritis. Patient is on Plaquenil. Hold prednisone. Patient also history of gout and is on colchicine. 6. BPH, continue finasteride and Flomax 7. Diabetes mellitus type 2: In BMP and glucoses normal 83, A1c 5.2. DVT ppx- Lovenox, renally dosed 30 mg subcu daily. 8. CODE STATUS - DNR CCA no intubation Active Medications Acetaminophen (Acetaminophen 325 Mg Tablet) 650 mg PO Q4H PRN PRN PRN Reason: Pain Score 1-10/Temp > 100.7 F Acetaminophen (Acetaminophen 650 Mg Suppository) 650 mg RECTAL Q4H PRN PRN PRN Reason: Pain Score 1-10/Temp > 100.7 F Al Hydroxide/Mg Hydroxide (Mag Hydrox/Al Hydrox/Simeth 30 Ml Udc) 30 ml PO Q6H PRN PRN PRN Reason: Gastric Burning Albuterol Sulfate (Albuterol Sulfate 8 Gm Inhaler (60 Puffs)) 4 - 8 puff INHALATION Q4H PRN PRN PRN Reason: Dyspnea, wheezing Last Admin: 03/09/20 00:40 Dose: 4 puff Documented by: Amiodarone HCl (Amiodarone 200 Mg Tablet) 200 mg PO DAILY [facility] Last Admin: 03/09/20 10:03 Dose: 200 mg Documented by: Aspirin (Aspirin E.C. 81 Mg Tablet) 81 mg PO DAILY [facility] Last Admin: 03/09/20 10:03 Dose: 81 mg Documented by: Carvedilol (Carvedilol 3.125 Mg Tablet) 3.125 mg PO BID [facility] Last Admin: 03/09/20 10:03 Dose: 3.125 mg Documented by: Clopidogrel Bisulfate (Clopidogrel Bisulfate 75 Mg Tablet) 75 mg PO DAILY [facility] Last Admin: 03/09/20 10:03 Dose: 75 mg Documented by: Colchicine (Colchicine 0.6 Mg Tablet) 0.6 mg PO DAILY [facility] Last Admin: 03/09/20 10:03 Dose: 0.6 mg Documented by: Dexamethasone (Dexamethasone 4 Mg Tablet) 6 mg PO DAILY [facility] Stop: 03/17/20 10:01 Last Admin: 03/09/20 11:12 Dose: 6 mg Documented by: Donepezil HCl (Donepezil Hcl 10 Mg Tablet) 10 mg PO QHS [facility] Last Admin: 03/08/20 20:48 Dose: 10 mg Documented by: Enoxaparin Sodium (Enoxaparin 30 Mg/0.3 Ml Syringe) 30 mg SC DAILY [facility] Last Admin: 03/09/20 10:03 Dose: 30 mg Documented by: Finasteride (Finasteride 5 Mg Tablet) 5 mg PO DAILY [facility] Last Admin: 03/09/20 10:03 Dose: 5 mg Documented by: Guaifenesin (Guaifenesin 10 Ml Udc (200mg/10ml)) 20 ml PO Q4H PRN PRN PRN Reason: COUGH Last Admin: 03/09/20 00:49 Dose: 20 ml Documented by: Hydralazine HCl (Hydralazine 20 Mg/Ml Vial) 10 mg IV Q4H PRN PRN PRN Reason: SBP > 160 Hydroxychloroquine Sulfate (Hydroxychloroquine 200 Mg Tablet) 200 mg PO DAILY [facility] Remdesivir 100 mg/ Sodium (Chloride) 250 mls @ 125 mls/hr IV DAILY [facility]; Protocol Stop: 03/12/20 11:59 Last Infusion: 03/09/20 13:21 Dose: Infused Documented by: Isosorbide Mononitrate (Isosorbide Mononitrate 30 Mg Tablet) 30 mg PO DAILY [facility] Last Admin: 03/09/20 10:03 Dose: 30 mg Documented by: Levothyroxine Sodium (Levothyroxine 75 Mcg Tablet) 75 mcg PO DAILY [facility] Last Admin: 03/09/20 10:03 Dose: 75 mcg Documented by: Loperamide HCl (Loperamide 2 Mg Capsule) 4 mg PO Q6H PRN PRN PRN Reason: Diarrhea Last Admin: 03/09/20 00:48 Dose: 4 mg Documented by: Magnesium Hydroxide (Magnesium Hydroxide 30 Ml Udc) 30 ml PO DAILY PRN PRN PRN Reason: Constipation Melatonin (Melatonin 10 Mg Tablet) 5 mg PO QHS [facility] Last Admin: 03/08/20 20:48 Dose: 5 mg Documented by: Nitroglycerin (Nitroglycerin (Inpatient Use) 0.4 Mg Tab.Subl) 0.4 mg SUBLINGUAL Q5M PRN PRN Reason: CARDIAC/CHEST PAIN Ondansetron HCl (Ondansetron 4 Mg/2 Ml Vial) 4 mg IV Q8H PRN PRN PRN Reason: NAUSEA/VOMITING Pravastatin Sodium (Pravastatin 20 Mg Tablet) 20 mg PO QHS [facility] Last Admin: 03/08/20 20:48 Dose: 20 mg Documented by: Prochlorperazine Edisylate (Prochlorperazine 10 Mg/2 Ml Vial) 5 mg IV Q4H PRN PRN PRN Reason: Breakthrough nausea/vomiting Psyllium Hydrophilic Mucilloid (Psyllium 1 Packet) 1 packet PO DAILY PRN PRN PRN Reason: Constipation Senna/Docusate Sodium (Senna/Docusate Sodium 1 Tablet) 2 tablet PO BID PRN PRN PRN Reason: Constipation Sodium Chloride (0.9% Saline Lock 10 Ml Syringe) 10 - 40 ml IV UD PRN PRN Reason: SALINE FLUSH Tamsulosin HCl (Tamsulosin Hcl 0.4 Mg Capsule) 0.4 mg PO DAILY@1730 [facility] Last Admin: 03/08/20 17:30 Dose: 0.4 mg Documented by: Throat Lozenges (Benzocaine/Menthol 1 Lozenge) 1 lozenge MUCOUS MEM Q2H PRN PRN PRN Reason: SORE THROAT Clinical Impression(s) from Imaging Studies Chest X-Ray 03/08/20 11:10 IMPRESSION: Stable examination. No acute abnormality is seen. Electronically Signed: Pablito Lloyd, at 12:07 EST , Service support , Chest CTA 03/08/20 11:41 IMPRESSION: Groundglass infiltrate seen in the posterolateral aspect of the right upper lobe as well as the right lower lobe superimposed on chronic interstitial fibrosis and honeycombing. Electronically Signed: Pablito Lloyd, at 12:25 EST , Service support , Inpatient E&M: 11762 Subs Hosp L2
[2020-03-09] MEDS: Enoxaparin 30 MG/0.3 ML Syringe SC (10:03)
[2020-03-09] MEDS: Levothyroxine 75 MCG Tablet PO (10:03)
[2020-03-09] MEDS: Isosorbide Mononitrate 30 MG Tablet PO (10:03)
[2020-03-09] MEDS: Finasteride 5 MG Tablet PO (10:03)
[2020-03-09] MEDS: Clopidogrel Bisulfate 75 MG Tablet PO (10:03)
[2020-03-09] MEDS: Aspirin E.C. 81 MG Tablet PO (10:03)
[2020-03-09] MEDS: Amiodarone 200 MG Tablet PO (10:03)
[2020-03-09] MEDS: Carvedilol 3.125 MG TABLET PO ×2 (10:03→23:30)
[2020-03-09] MEDS: dexAMETHasone 4 MG Tablet 6 MG PO (11:12)
--- NOTE | 2020-03-09 11:21 | CASEMGMT ---
Social Work Pt admitted from [facility]. SW spoke with Susi who states pt is a short term pt at facility under skilled benefit and they are able to accept pt back. Clinical updates faxed. Phone call placed to pt room with no answer. Phone call to pt to discuss discharge plan, deferred all decision making to daughter Rupal Fernandez. Phone call to Rupal and SW explained role and reason of call to discuss discharge plan. Rupal stating that she will be talking to her family to discuss logistics of bringing pt home as he will not be returning to [facility] or any other SNF. SW explained that PT/OT have been ordered and will notify daughter of pt functional ability once he has been seen. Pt currently on 2L of oxygen and explained home oxygen services is needed. SW also provided information on home health services. Pt was at home with his in two story home and functioning independently until hospitalization 02/20/20-02/22/20. At that time pt was discharged to [facility] for rehab prior to returning home. Pt has grab bars, shower chair, cpap, walker. Pt had been using the walker in the house. Plan: Dgt Rupal does not want return to SNF. She will make arrangements for pt to return home with family. SW will update dgt with results of PT/OT ABISAI Crowder
[2020-03-09 13:15] LABS: Pathologist Review Reviewed
[2020-03-09 13:28] LABS: Pathologist Review Reviewed
--- NOTE | 2020-03-09 14:39 | CASEMGMT ---
DEAN ROWAN Readmission Assessment Index admission date: 02/21/2020- DC Diagnosis: Generalized weakness, angina, chest pain DC Disposition: SNF Current Admission Diagnosis: COVID 19 Patient returned to ER with shortness of breath, worsening today. He tested positive on February 29, 2020 for COVID 19 @ [facility]. Now is on 2L NC. Family is stating they do not wish for patient to return to SNF on dc and would like to take him home. PT/OT evaluations are ordered but have not been completed as of this time. CM will continue to follow and assist with dc planning. DC PLAN: anticipate Home with family support. Further dc needs per PT/OT evals and oxygen testing if indicated. Olamide PA RN ACM
--- NOTE | 2020-03-09 15:51 | PCM.HP.ID ---
Problem List (1) Pneumonia due to COVID-19 virus Status: Acute Reason for Consult: covid Consulted by: Dr. Badillo History of Present Illness: The patient is a 84 year old M with RA, on plaquenil, presented with sx since 03/04 with weakness, aches, cough, diarrhea, and change in taste and smell. Covid (+) 03/01. Came to ED, started on dex, lovenox 30mg daily. Ordered remdesivir to start last night, feeling better this AM. Full ROS performed and neg except as noted above. - Medical History Past Medical History (Chronic Problems): Chronic Problems (Last Reviewed 01/14/20 @ 10:56 by Migdalia Fisher) Cognitive impairment (Chronic) Chronic anemia (Chronic) Chronic idiopathic thrombocytopenia (Chronic) Rheumatoid arthritis (Chronic) BPH (benign prostatic hyperplasia) (Chronic) Presence of stent in coronary artery (Chronic ~09/23/06) PTCA and stenting of the LAD and diagonal 09/23/2006 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) Abnormal echocardiogram (Chronic) Mixed hyperlipidemia (Chronic) Atherosclerotic heart disease of [place] coronary artery without angina pectoris (Chronic) PTCA and stenting of the LAD and diagonal 09/23/2006 Essential hypertension (Chronic) Mixed sleep apnea (Chronic) BiPAP 17/11 mm of water with a backup rate of 12 Hypersomnolence disorder (Chronic) Dilated cardiomyopathy (Chronic) 15% EF Paroxysmal ventricular tachycardia (Chronic) Abnormal result of cardiovascular function study, unspecified (Chronic) 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) Implant: 06/2000; Generator change: 03/17/2008 Hypothyroidism, iatrogenic (Chronic) 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) Chronic renal failure, stage 3 (moderate) (Chronic) Diabetes mellitus type 2 in nonobese (Chronic) Sustained ventricular tachycardia (Chronic) Hypothyroidism (Chronic) Cardiomyopathy (Chronic) Allergies/Adverse Reactions: Allergies atorvastatin [From Lipitor] Adverse Reaction (Verified 03/08/20 12:20) myalgia leflunomide [From Arava] Adverse Reaction (Verified 03/08/20 12:20) PROBLEMS WITH MY FEET simvastatin [From Zocor] Adverse Reaction (Verified 03/08/20 12:20) myalgia Home Medications: Ambulatory Orders Medication Instructions Recorded Carvedilol [Coreg (Beta Karri)] 3.125 mg PO BID 02/20/20 Clopidogrel Bisulfate [Clopidogrel] 75 mg PO DAILY 02/20/20 Colchicine 0.6 mg PO DAILY 02/20/20 Finasteride 5 mg PO DAILY 02/20/20 Hydroxychloroquine [Plaquenil] 200 mg PO DAILYCM 02/20/20 Isosorbide Mononitrate [Imdur] 30 mg PO DAILY 02/20/20 Nitroglycerin 0.4 mg SL Q5M PRN 02/20/20 Pravastatin Sodium 20 mg PO DAILY 02/20/20 Prednisone 5 mg PO DAILY 02/20/20 Tamsulosin HCl 0.4 mg PO DAILY 02/20/20 Amiodarone HCl [Cordarone] 200 mg PO DAILY 03/08/20 Ascorbic Acid [Vitamin C] 500 mg PO DAILY 03/08/20 Aspirin E.C. [Ecotrin] 81 mg PO DAILY@0800 03/08/20 Cholecalciferol (Vitamin D3) 10,000 unit PO DAILY 03/08/20 [Vitamin D3] Donepezil HCl 10 mg PO QHS 03/08/20 Levothyroxine [Synthroid] 75 mcg PO DAILY@0600 03/08/20 Loperamide [Imodium] 4 mg PO Q6H PRN PRN 03/08/20 Melatonin 5 mg PO QHS 03/08/20 Zinc 50 mg PO DAILY 03/08/20 - Social History SMOKING STATUS:: Former smoker Vital Signs Temp Pulse Resp BP Pulse Ox 98.0 F 65 19 H 107/58 L 95 03/09/20 10:10 03/09/20 10:10 03/09/20 10:10 03/09/20 10:10 03/09/20 13:05 Oxygen Flow Rate (L/min) 2 Oxygen Delivery Method Nasal Cannula Weight: 74.3 kg Body Mass Index (BMI) 22.7 Microbiology Past 72 Hours 03/08/20 17:30 Gram Stain - Final Sputum, Expectorated/Coughed Respiratory Culture - Preliminary Alpha hemolytic organism 03/08/20 22:50 Legionella Antigen - Final Urine, Clean Catch Streptococcus pneumoniae Antigen (M - Final 03/08/20 15:25 Respiratory Panel (PCR) - Final Mucosa - Nasopharyngeal Laboratory Tests Past 24 Hrs 03/08/20 03/08/20 03/09/20 10:54 15:25 05:28 WBC 4.2 L RBC 3.71 L Hgb 11.7 L Hct 36.1 L MCV 97.3 H MCH 31.5 MCHC 32.4 RDW Std Deviation 56.8 H RDW Coeff of [place]cel[place] 15.8 H Plt Count 112 L MPV 9.4 Immature Gran % (Auto) 0.500 Neut % (Auto) 86.5 H Lymph % (Auto) 5.5 L [place] % (Auto) 7.5 Eos % (Auto) 0.0 Baso % (Auto) 0.0 Absolute Neuts (auto) 3.6 Absolute Lymphs (auto) 0.23 L Nucleated RBC % 0 Diff Path Review Reviewed Reviewed Sodium Potassium Chloride Carbon Dioxide Anion Gap BUN Creatinine Estim Creat Clear Calc Est GFR (MDRD) Af Amer Est GFR (MDRD) Non-Af BUN/Creatinine Ratio Glucose Lactic Acid 1.4 Calcium Total Bilirubin AST ALT Alkaline Phosphatase Total Protein Albumin Globulin Albumin/Globulin Ratio 03/09/20 05:28 WBC RBC Hgb Hct MCV MCH MCHC RDW Std Deviation RDW Coeff of [place] Plt Count MPV Immature Gran % (Auto) Neut % (Auto) Lymph % (Auto) [place] % (Auto) Eos % (Auto) Baso % (Auto) Absolute Neuts (auto) Absolute Lymphs (auto) Nucleated RBC % Diff Path Review Sodium 136 Potassium 3.7 Chloride 106 Carbon Dioxide 21.0 Anion Gap 9 BUN 36 H Creatinine 1.61 H Estim Creat Clear Calc 35.89 Est GFR (MDRD) Af Amer 53 L Est GFR (MDRD) Non-Af 44 L BUN/Creatinine Ratio 22.4 H Glucose 97 Lactic Acid Calcium 8.3 L Total Bilirubin 1.00 AST 100 H ALT 79 H Alkaline Phosphatase 91 Total Protein 6.1 L Albumin 2.6 L Globulin 3.5 Albumin/Globulin Ratio 0.7 L - Other Studies Radiology: [] reviewed Other Studies: [] Route of nutrition/ use of supplements: [] Nutritional Intake: [] IV Site: [] Nicolas Catheter: [] - Physical Exam General: Alert, Cooperative, No apparent distress HEENT: Atraumatic, PERRLA, EOMI Neck: Supple, No Nodes Lungs: Diminished Cardiovascular: Regular rate, Regular Rhythm Abdomen: Soft, Non Tender, Non-Distended Extremities: No edema Skin: No rashes IV Site: Peripheral, without redness Musculoskeletal: No Tenderness to Palpation of Joints or Extremities Neurological: Deep Tendon Reflexes 2+/4 and Symmetrical - Assessment/Plan Antibiotics: [] Assessment/Plan: [] Active and Suspected Problems (Last Reviewed 01/14/20 @ 10:56 by Migdalia Fisher) Hypoxia (Acute) Pneumonia due to COVID-19 virus (Acute) Elevated LFTs (Acute) covid with hypoxia - he reports sx started 03/04, had (+) test 03/01. On dex. Held plaquenil, started remdesivir last night. D-dimer was 6, CT neg for PE, but would recommend increasing lovenox to intermediate dose. Changed dex to po, ordered AM labs. Will follow, thank you
[2020-03-09] MEDS: Tamsulosin HCl 0.4 MG Capsule PO (17:18)
[2020-03-09] MEDS: Donepezil HCl 10 MG Tablet PO (23:30)
[2020-03-10] VITALS (9 sets, daily range): BP systolic 99–129; BP diastolic 58–72; PULSE 63–70; RESP 16–20; TEMP 36.3–36.6; O2SAT 94–96
[2020-03-10] MEDS: BENZOCAINE/MENTHOL 1 LOZENGE MUCOUS MEM ×2 (00:02→21:25)
[2020-03-10] MEDS: MELATONIN 10 MG TABLET 5 MG PO ×2 (00:10→21:26)
[2020-03-10] MEDS: Pravastatin 20 MG Tablet PO ×2 (00:10→21:26)
[2020-03-10 07:00] LABS: Hematocrit 36.3 % (40-54); Hemoglobin 11.8 g/dL (13.0-16.5); Mean Corp Hgb Conc 32.5 g/dL (32-36); Mean Corpuscular Hgb 31.2 pg (27.0-32.0); Mean Platelet Vol. 9.4 fl (6.2-12.0); Platelet Count 122 K/mm3 (150-450); RBC Distribution Width CV 15.7 % (11.6-14.6); RBC Distribution Width SD 55.9 fl (35.1-43.9); Red Blood Count 3.78 M/mm3 (4.6-6.2); White Blood Count 5.2 K/mm3 (4.4-11.0)
[2020-03-10 07:28] LABS: ALB/GLOB Ratio 0.7 RATIO (0.9-2.4); AST(SGOT) 86 U/L (15-37); Alanine Aminotransfer ALT/SGPT 73 U/L (16-61); Albumin, Serum 2.5 g/dL (3.2-5.0); Alkaline Phosphatase 87 U/L (45-117); Anion Gap 8 (5-15); BUN 43 mg/dL (7-18); BUN/Creat Ratio 30.9 RATIO (10-20); Calcium,Total 8.7 mg/dL (8.5-10.1); Chloride 107 mmol/L (98-107); Creatinine, Serum 1.39 mg/dL (0.70-1.30); EST Glomerular Filtration Rate 52 mL/min (>60); Est Glom Filt Rate - Afr Amer 63 mL/min (>60); Globulin 3.4 g/dL (2.2-4.2); Glucose 93 mg/dL (74-106); Protein, Total 5.9 g/dL (6.4-8.2); Sodium Level 136 mmol/L (136-145)
[2020-03-10] MEDS: 0.9% Saline Lock 10 ML Syringe IV ×2 (10:10→21:27)
[2020-03-10] MEDS: Enoxaparin 30 MG/0.3 ML Syringe SC ×2 (10:10→21:27)
[2020-03-10] MEDS: Levothyroxine 75 MCG Tablet PO (10:11)
[2020-03-10] MEDS: Amiodarone 200 MG Tablet PO (10:11)
[2020-03-10] MEDS: Finasteride 5 MG Tablet PO (10:11)
[2020-03-10] MEDS: Aspirin E.C. 81 MG Tablet PO (10:11)
[2020-03-10] MEDS: dexAMETHasone 4 MG Tablet 6 MG PO (10:11)
[2020-03-10] MEDS: Clopidogrel Bisulfate 75 MG Tablet PO (10:11)
--- NOTE | 2020-03-10 10:25 | CASEMGMT ---
Addendum entered by Natasha Galarza 03/10/20 14:46: Social Work BLANKA spoke with physician who states pt will remain at hospital over the weekend. SW placed call to pt dgt to inform of this. Rupal states she has talked to pt and family and have decided that pt will likely return to [facility] at time of discharge. SW to follow up with daughter on Friday to confirm discharge plan. ABISAI Humphreys Original Note: Social Work SW spoke with pt dgt Rupal on phone and discussed discharge plans. Presented options for discharge including returning to [facility], Finding a new SNF for pt, and returning home with family and home health services. BLANKA reviewed therapy evaluations with dgt and discussed functional ability and level of oxygen needed. Dgt with many questions regarding pt care and discharge options. All questions answered. Rupal will talk to pt, pt and pt son for decision making and will call BLANKA back. ABISAI Humphreys
--- NOTE | 2020-03-10 14:50 | PCM.PN.HOSP ---
Patient Problems: Active and Suspected Problems (Last Reviewed 01/14/20 @ 10:56 by Migdalia Fisher) Hypoxia (Acute) Pneumonia due to COVID-19 virus (Acute) Elevated LFTs (Acute) Reason for Visit: Follow-up for acute hypoxic respiratory failure secondary to COVID-19 pneumonia along with multiple comorbidities. Objective: Afebrile. Patient is mild short of breath and wheezing. Low blood pressure in the morning, systolic 90s, improved currently 120s. On 2 L of oxygen. Patient has weak cough reflex and generalized physical deconditioning with poor exercise capacity. Physical exam General: Alert, Oriented x3, Cooperative. HEENT: Atraumatic, PERRLA, EOMI, Normocephalic Oral: No Gingival or Mucosal Lesions/ Ulcerations Neck: Supple, No JVD, Negative Carotid Bruits Lungs: Air entry grossly diminished in bilateral lung bases. Bilateral expiratory wheezing. 2 L of oxygen Cardiovascular: Regular rate, Regular Rhythm, Normal S1, Normal S2, systolic murmur over LLSB Abdomen: Bowel Sounds Present, Soft, Non Tender, Non-Distended : No renal angle tenderness. No suprapubic tenderness. Extremities: No edema, Capillary Refill Less than 3 Seconds Skin: Bruising both arms. No rashes, No breakdown Musculoskeletal: No Tenderness to Palpation of Joints or Extremities. Loss of subcutaneous fat with mild to moderate muscle atrophy of extremities. Neurological: Cranial nerves II-XII grossly intact, Deep Tendon Reflexes 2+/4 and Symmetrical, Neuro grossly intact Psych/Mental Status: Flat affect. Vitals/I&O's: Vital Signs Temp Pulse Resp BP Pulse Ox 97.8 F 66 16 121/68 H 94 03/10/20 12:48 03/10/20 12:48 03/10/20 12:48 03/10/20 12:48 03/10/20 14:22 Oxygen Flow Rate (L/min) 2 Oxygen Delivery Method Nasal Cannula Weight: 164 lb 10.965 oz Body Mass Index (BMI) 22.7 Intake and Output for Last 24 Hours 03/08/20 03/09/20 03/10/20 23:59 23:59 23:59 Intake Total 620 / 620 2210 / 2210 250 / 250 Output Total 50 / 50 300 / 550 250 / 250 Balance 570 / 570 1910 / 1660 0 / 0 Microbiology Past 72 Hours 03/08/20 11:25 Blood Culture (Wb) - Right Forearm Blood Culture - Preliminary No growth in 48 hours. 03/08/20 10:54 Blood Culture (Wb) - Left Forearm Blood Culture - Preliminary No growth in 48 hours. 03/08/20 17:30 Sputum, Expectorated/Coughed Gram Stain - Final 03/08/20 17:30 Sputum, Expectorated/Coughed Respiratory Culture - Preliminary Streptococcus pneumoniae 03/08/20 22:50 Urine, Clean Catch Legionella Antigen - Final 03/08/20 22:50 Urine, Clean Catch Streptococcus pneumoniae Antigen (M - Final 03/08/20 15:25 Mucosa - Nasopharyngeal Respiratory Panel (PCR) - Final Laboratory Results 03/10/20 06:30: WBC 5.2, RBC 3.78 L, Hgb 11.8 L, Hct 36.3 L, MCV 96.0 H, MCH 31.2, MCHC 32.5, RDW Std Deviation 55.9 H, RDW Coeff of Arcelia 15.7 H, Plt Count 122 L, MPV 9.4 03/10/20 06:30: Sodium 136, Potassium 4.0, Chloride 107, Carbon Dioxide 21.0, Anion Gap 8, BUN 43 H, Creatinine 1.39 H, Estim Creat Clear Calc 41.80, Est GFR (MDRD) Af Amer 63, Est GFR (MDRD) Non-Af 52 L, BUN/Creatinine Ratio 30.9 H, Glucose 93, Calcium 8.7, Total Bilirubin 0.90, AST 86 H, ALT 73 H, Alkaline Phosphatase 87, Total Protein 5.9 L, Albumin 2.5 L, Globulin 3.4, Albumin/Globulin Ratio 0.7 L Current Medications Acetaminophen (Acetaminophen 325 Mg Tablet) 650 mg PO Q4H PRN PRN PRN Reason: Pain Score 1-10/Temp > 100.7 F Acetaminophen (Acetaminophen 650 Mg Suppository) 650 mg RECTAL Q4H PRN PRN PRN Reason: Pain Score 1-10/Temp > 100.7 F Al Hydroxide/Mg Hydroxide (Mag Hydrox/Al Hydrox/Simeth 30 Ml Udc) 30 ml PO Q6H PRN PRN PRN Reason: Gastric Burning Albuterol Sulfate (Albuterol Sulfate 8 Gm Inhaler (60 Puffs)) 4 - 8 puff INHALATION Q4H PRN PRN PRN Reason: Dyspnea, wheezing Last Admin: 03/09/20 00:40 Dose: 4 puff Documented by: Amiodarone HCl (Amiodarone 200 Mg Tablet) 200 mg PO DAILY [facility] Last Admin: 03/10/20 10:11 Dose: 200 mg Documented by: Aspirin (Aspirin E.C. 81 Mg Tablet) 81 mg PO DAILY [facility] Last Admin: 03/10/20 10:11 Dose: 81 mg Documented by: Carvedilol (Carvedilol 3.125 Mg Tablet) 3.125 mg PO BID [facility] Last Admin: 03/10/20 10:22 Dose: Not Given Documented by: Clopidogrel Bisulfate (Clopidogrel Bisulfate 75 Mg Tablet) 75 mg PO DAILY [facility] Last Admin: 03/10/20 10:11 Dose: 75 mg Documented by: Colchicine (Colchicine 0.6 Mg Tablet) 0.6 mg PO DAILY [facility] Last Admin: 03/10/20 10:11 Dose: 0.6 mg Documented by: Dexamethasone (Dexamethasone 4 Mg Tablet) 6 mg PO DAILY [facility] Stop: 03/17/20 10:01 Last Admin: 03/10/20 10:11 Dose: 6 mg Documented by: Donepezil HCl (Donepezil Hcl 10 Mg Tablet) 10 mg PO QHS [facility] Last Admin: 03/09/20 23:30 Dose: 10 mg Documented by: Enoxaparin Sodium (Enoxaparin 30 Mg/0.3 Ml Syringe) 30 mg SC DAILY [facility] Last Admin: 03/10/20 10:10 Dose: 30 mg Documented by: Finasteride (Finasteride 5 Mg Tablet) 5 mg PO DAILY [facility] Last Admin: 03/10/20 10:11 Dose: 5 mg Documented by: Guaifenesin (Guaifenesin 10 Ml Udc (200mg/10ml)) 20 ml PO Q4H PRN PRN PRN Reason: COUGH Last Admin: 03/09/20 00:49 Dose: 20 ml Documented by: Hydralazine HCl (Hydralazine 20 Mg/Ml Vial) 10 mg IV Q4H PRN PRN PRN Reason: SBP > 160 Hydroxychloroquine Sulfate (Hydroxychloroquine 200 Mg Tablet) 200 mg PO DAILY [facility] Remdesivir 100 mg/ Sodium (Chloride) 250 mls @ 125 mls/hr IV DAILY [facility]; Protocol Stop: 03/12/20 11:59 Last Infusion: 03/10/20 12:09 Dose: Infused Documented by: Ceftriaxone Sodium 2 gm/ (Sodium Chloride) 50 mls @ 100 mls/hr IV Q24 [facility] Last Admin: 03/10/20 14:17 Dose: 100 mls/hr Documented by: Isosorbide Mononitrate (Isosorbide Mononitrate 30 Mg Tablet) 30 mg PO DAILY [facility] Last Admin: 03/10/20 10:22 Dose: Not Given Documented by: Levothyroxine Sodium (Levothyroxine 75 Mcg Tablet) 75 mcg PO DAILY [facility] Last Admin: 03/10/20 10:11 Dose: 75 mcg Documented by: Loperamide HCl (Loperamide 2 Mg Capsule) 4 mg PO Q6H PRN PRN PRN Reason: Diarrhea Last Admin: 03/09/20 00:48 Dose: 4 mg Documented by: Magnesium Hydroxide (Magnesium Hydroxide 30 Ml Udc) 30 ml PO DAILY PRN PRN PRN Reason: Constipation Melatonin (Melatonin 10 Mg Tablet) 5 mg PO QHS [facility] Last Admin: 03/10/20 00:10 Dose: 5 mg Documented by: Nitroglycerin (Nitroglycerin (Inpatient Use) 0.4 Mg Tab.Subl) 0.4 mg SUBLINGUAL Q5M PRN PRN Reason: CARDIAC/CHEST PAIN Ondansetron HCl (Ondansetron 4 Mg/2 Ml Vial) 4 mg IV Q8H PRN PRN PRN Reason: NAUSEA/VOMITING Pravastatin Sodium (Pravastatin 20 Mg Tablet) 20 mg PO QHS [facility] Last Admin: 03/10/20 00:10 Dose: 20 mg Documented by: Prochlorperazine Edisylate (Prochlorperazine 10 Mg/2 Ml Vial) 5 mg IV Q4H PRN PRN PRN Reason: Breakthrough nausea/vomiting Psyllium Hydrophilic Mucilloid (Psyllium 1 Packet) 1 packet PO DAILY PRN PRN PRN Reason: Constipation Senna/Docusate Sodium (Senna/Docusate Sodium 1 Tablet) 2 tablet PO BID PRN PRN PRN Reason: Constipation Sodium Chloride (0.9% Saline Lock 10 Ml Syringe) 10 - 40 ml IV UD PRN PRN Reason: SALINE FLUSH Last Admin: 03/10/20 10:10 Dose: 10 ml Documented by: Tamsulosin HCl (Tamsulosin Hcl 0.4 Mg Capsule) 0.4 mg PO DAILY@1730 [facility] Last Admin: 03/09/20 17:18 Dose: 0.4 mg Documented by: Throat Lozenges (Benzocaine/Menthol 1 Lozenge) 1 lozenge MUCOUS MEM Q2H PRN PRN PRN Reason: SORE THROAT Last Admin: 03/10/20 00:02 Dose: 1 lozenge Documented by: STROKE Vital Signs/Narrative: Vital Signs Temp Pulse Resp BP Pulse Ox 03/10/20 14:22 94 03/10/20 12:48 97.8 F 66 16 121/68 H 94 Medical Necessity - Tobacco Use Smoking Status: Former smoker Tobacco Use: Cigarettes Assessment/Plan All Active Problems (Last Reviewed 01/14/20 @ 10:56 by Migdalia Fisher) Orthostatic hypotension (Acute) Generalized weakness (Acute) Hypoxia (Acute) Pneumonia due to COVID-19 virus (Acute) Elevated LFTs (Acute) Exertional angina (Acute) Unstable angina (Acute) Dysrhythmia, cardiac (Acute) Chest pain (Acute) Angina pectoris (Acute) Acute on chronic combined systolic and diastolic heart failure (Resolved) Chest pain (Resolved) Fatigue (Resolved) Hypoxia (Resolved) Myalgia (Resolved) The patient is 84-year-old gentleman with history of chronic combined heart failure, EF 20%, coronary artery disease paroxysmal V. tach, CKD stage IV and other comorbidities was admitted 03/08 with fever, chills headaches, generalized myalgia, abdominal cramping, nausea and loose stool decreased sense of taste and smell cough and dyspnea consistent with COVID-19 pneumonia. 1. Acute respiratory insufficiency and severe sepsis from COVID-19 pneumonia bacterial superinfection due to Streptococcus pneumoniae bacterial pneumonia: Patient diagnosed with Covid on 02/29/2020. Has pancytopenia. Leukopenia with lateral lymphopenia, ALC 0.23 thousand. Platelet count 112,000. D-dimer elevated 6.05. On Decadron and remdesivir. D-dimer is elevated 6.05. Fibrinogen normal. Lactic acid 2.2, repeat normal. Liver chemistry shows elevated transaminases but normal bilirubin. Elevated inflammatory markers CRP, LDH and BNP. ID consult. 03/10: Sputum culture is positive of 3+ Streptococcus pneumoniae. Patient is on ceftriaxone 2 g daily. Advised aggressive incentive spirometry and chest physiotherapy. Continue above medications. 2. CKD stage IV: Admitted with BUN/creatinine 27/1.89. BUN/creatinine improving. Electrolytes are within acceptable limit. 03/10: BUN and creatinine stable and improvement in creatinine. 3. Cardiovascular conditions: Coronary artery disease status post LAD stent, ischemic cardiomyopathy, EF 20%, paroxysmal V. tach: Echo on 11/02/2019: Mildly dilated left ventricle. Severe segmental systolic dysfunction (see wall motion). The estimated ejection fraction is 20 %. Mild concentric left ventricular hypertrophy. Apical false tendon noted. The left atrium is mildly enlarged. Mild diffuse mitral valve thickening. Mild papillary muscle dysfunction of the mitral valve. Trivial mitral valve insufficiency. Mild tricuspid valve insufficiency. Mild focal aortic valve calcification. Mild-Moderate (1-2+) aortic valve insufficiency. Mild (1+) pulmonic valve insufficiency. Right ventricular systolic pressure estimated to be 30 mmHg. Diastolic function is indeterminate. Patient home cardiac medications continued. On amiodarone, carvedilol, Plavix, 03/10: Mild hypotension in the morning. Patient looks mildly dehydrated therefore increased increased water intake and blood pressure recovered. Patient on carvedilol, Emetrol and isosorbide mononitrate with holding parameters. 4. Acute COVID-19 viral hepatitis: ALT 79, AST 100, total bili normal. Hypothyroidism, continue levothyroxine 5. Chronic arthritis, unclear if this is rheumatoid arthritis. Patient is on Plaquenil. Hold prednisone. Patient also history of gout and is on colchicine. 6. BPH, continue finasteride and Flomax 7. Diabetes mellitus type 2: In BMP and glucoses normal 83, A1c 5.2. DVT ppx- Lovenox, renally dosed 30 mg subcu daily. 8. CODE STATUS - DNR CCA no intubation Discharge plan: Patient has returned to home from recent custodial admission. His and children wants the patient to go home with home health palliative care coordinator. Discussed with the patient case manager. Microbiology Past 72 Hours 03/08/20 11:25 Blood Culture (Wb) - Right Forearm Blood Culture - Preliminary No growth in 48 hours. 03/08/20 10:54 Blood Culture (Wb) - Left Forearm Blood Culture - Preliminary No growth in 48 hours. 03/08/20 17:30 Sputum, Expectorated/Coughed Gram Stain - Final 03/08/20 17:30 Sputum, Expectorated/Coughed Respiratory Culture - Preliminary Streptococcus pneumoniae 03/08/20 22:50 Urine, Clean Catch Legionella Antigen - Final 03/08/20 22:50 Urine, Clean Catch Streptococcus pneumoniae Antigen (M - Final 03/08/20 15:25 Mucosa - Nasopharyngeal Respiratory Panel (PCR) - Final Laboratory Results 03/10/20 06:30: WBC 5.2, RBC 3.78 L, Hgb 11.8 L, Hct 36.3 L, MCV 96.0 H, MCH 31.2, MCHC 32.5, RDW Std Deviation 55.9 H, RDW Coeff of Arcelia 15.7 H, Plt Count 122 L, MPV 9.4 03/10/20 06:30: Sodium 136, Potassium 4.0, Chloride 107, Carbon Dioxide 21.0, Anion Gap 8, BUN 43 H, Creatinine 1.39 H, Estim Creat Clear Calc 41.80, Est GFR (MDRD) Af Amer 63, Est GFR (MDRD) Non-Af 52 L, BUN/Creatinine Ratio 30.9 H, Glucose 93, Calcium 8.7, Total Bilirubin 0.90, AST 86 H, ALT 73 H, Alkaline Phosphatase 87, Total Protein 5.9 L, Albumin 2.5 L, Globulin 3.4, Albumin/Globulin Ratio 0.7 L Clinical Impression(s) from Imaging Studies Chest X-Ray 03/08/20 11:10 IMPRESSION: Stable examination. No acute abnormality is seen. Electronically Signed: Pablito Lloyd, at 12:07 EST , Service support , Chest CTA 03/08/20 11:41 IMPRESSION: Groundglass infiltrate seen in the posterolateral aspect of the right upper lobe as well as the right lower lobe superimposed on chronic interstitial fibrosis and honeycombing. Electronically Signed: Pablito Lloyd, at 12:25 EST , Service support , Inpatient E&M: [id number] Subs Hosp L2
--- NOTE | 2020-03-10 15:00 | PN.ID_ITS ---
Patient Problems: Active and Suspected Problems (Last Reviewed 01/14/20 @ 10:56 by Migdalia Fisher) Hypoxia (Acute) Pneumonia due to COVID-19 virus (Acute) Elevated LFTs (Acute) Subjective: Feeling a little better but c/o a lot of sputum, some dyspnea. - Physical Exam Vitals/I&O's: Vital Signs Temp Pulse Resp BP Pulse Ox 97.8 F 66 16 121/68 H 94 03/10/20 12:48 03/10/20 12:48 03/10/20 12:48 03/10/20 12:48 03/10/20 14:22 Oxygen Flow Rate (L/min) 2 Oxygen Delivery Method Nasal Cannula Weight: 74.7 kg Body Mass Index (BMI) 22.7 Intake and Output for Last 24 Hours 03/08/20 03/09/20 03/10/20 23:59 23:59 23:59 Intake Total 620 / 620 2210 / 2210 250 / 250 Output Total 50 / 50 300 / 550 250 / 250 Balance 570 / 570 1910 / 1660 0 / 0 General: Cooperative, No apparent distress Lungs: Diminished Cardiovascular: Regular rate, Regular Rhythm Abdomen: Soft, Non Tender, Non-Distended Skin: No rashes Microbiology Past 72 Hours 03/08/20 11:25 Blood Culture (Wb) - Right Forearm Blood Culture - Preliminary No growth in 48 hours. 03/08/20 10:54 Blood Culture (Wb) - Left Forearm Blood Culture - Preliminary No growth in 48 hours. 03/08/20 17:30 Sputum, Expectorated/Coughed Gram Stain - Final 03/08/20 17:30 Sputum, Expectorated/Coughed Respiratory Culture - Preliminary Streptococcus pneumoniae 03/08/20 22:50 Urine, Clean Catch Legionella Antigen - Final 03/08/20 22:50 Urine, Clean Catch Streptococcus pneumoniae Antigen (M - Final 03/08/20 15:25 Mucosa - Nasopharyngeal Respiratory Panel (PCR) - Final Laboratory Results 03/10/20 06:30: WBC 5.2, RBC 3.78 L, Hgb 11.8 L, Hct 36.3 L, MCV 96.0 H, MCH 31.2, MCHC 32.5, RDW Std Deviation 55.9 H, RDW Coeff of Arcelia 15.7 H, Plt Count 122 L, MPV 9.4 03/10/20 06:30: Sodium 136, Potassium 4.0, Chloride 107, Carbon Dioxide 21.0, Anion Gap 8, BUN 43 H, Creatinine 1.39 H, Estim Creat Clear Calc 41.80, Est GFR (MDRD) Af Amer 63, Est GFR (MDRD) Non-Af 52 L, BUN/Creatinine Ratio 30.9 H, Glucose 93, Calcium 8.7, Total Bilirubin 0.90, AST 86 H, ALT 73 H, Alkaline Phosphatase 87, Total Protein 5.9 L, Albumin 2.5 L, Globulin 3.4, Albumin/Globulin Ratio 0.7 L Current Medications Acetaminophen (Acetaminophen 325 Mg Tablet) 650 mg PO Q4H PRN PRN PRN Reason: Pain Score 1-10/Temp > 100.7 F Acetaminophen (Acetaminophen 650 Mg Suppository) 650 mg RECTAL Q4H PRN PRN PRN Reason: Pain Score 1-10/Temp > 100.7 F Albuterol Sulfate (Albuterol Sulfate 8 Gm Inhaler (60 Puffs)) 4 - 8 puff INHALATION Q4H PRN PRN PRN Reason: Dyspnea, wheezing Last Admin: 03/09/20 00:40 Dose: 4 puff Documented by: Amiodarone HCl (Amiodarone 200 Mg Tablet) 200 mg PO DAILY [facility] Last Admin: 03/10/20 10:11 Dose: 200 mg Documented by: Aspirin (Aspirin E.C. 81 Mg Tablet) 81 mg PO DAILY [facility] Last Admin: 03/10/20 10:11 Dose: 81 mg Documented by: Carvedilol (Carvedilol 3.125 Mg Tablet) 3.125 mg PO BID [facility] Last Admin: 03/10/20 10:22 Dose: Not Given Documented by: Clopidogrel Bisulfate (Clopidogrel Bisulfate 75 Mg Tablet) 75 mg PO DAILY [facility] Last Admin: 03/10/20 10:11 Dose: 75 mg Documented by: Colchicine (Colchicine 0.6 Mg Tablet) 0.6 mg PO DAILY [facility] Last Admin: 03/10/20 10:11 Dose: 0.6 mg Documented by: Dexamethasone (Dexamethasone 4 Mg Tablet) 6 mg PO DAILY [facility] Stop: 03/17/20 10:01 Last Admin: 03/10/20 10:11 Dose: 6 mg Documented by: Donepezil HCl (Donepezil Hcl 10 Mg Tablet) 10 mg PO QHS [facility] Last Admin: 03/09/20 23:30 Dose: 10 mg Documented by: Enoxaparin Sodium (Enoxaparin 30 Mg/0.3 Ml Syringe) 30 mg SC DAILY [facility] Last Admin: 03/10/20 10:10 Dose: 30 mg Documented by: Finasteride (Finasteride 5 Mg Tablet) 5 mg PO DAILY [facility] Last Admin: 03/10/20 10:11 Dose: 5 mg Documented by: Guaifenesin (Guaifenesin 10 Ml Udc (200mg/10ml)) 20 ml PO Q4H PRN PRN PRN Reason: COUGH Last Admin: 03/09/20 00:49 Dose: 20 ml Documented by: Hydralazine HCl (Hydralazine 20 Mg/Ml Vial) 10 mg IV Q4H PRN PRN PRN Reason: SBP > 160 Hydroxychloroquine Sulfate (Hydroxychloroquine 200 Mg Tablet) 200 mg PO DAILY [facility] Remdesivir 100 mg/ Sodium (Chloride) 250 mls @ 125 mls/hr IV DAILY [facility]; Protocol Stop: 03/12/20 11:59 Last Infusion: 03/10/20 12:09 Dose: Infused Documented by: Ceftriaxone Sodium 2 gm/ (Sodium Chloride) 50 mls @ 100 mls/hr IV Q24 [facility] Last Admin: 03/10/20 14:17 Dose: 100 mls/hr Documented by: Isosorbide Mononitrate (Isosorbide Mononitrate 30 Mg Tablet) 30 mg PO DAILY [facility] Last Admin: 03/10/20 10:22 Dose: Not Given Documented by: Levothyroxine Sodium (Levothyroxine 75 Mcg Tablet) 75 mcg PO DAILY [facility] Last Admin: 03/10/20 10:11 Dose: 75 mcg Documented by: Loperamide HCl (Loperamide 2 Mg Capsule) 4 mg PO Q6H PRN PRN PRN Reason: Diarrhea Last Admin: 03/09/20 00:48 Dose: 4 mg Documented by: Melatonin (Melatonin 10 Mg Tablet) 5 mg PO QHS [facility] Last Admin: 03/10/20 00:10 Dose: 5 mg Documented by: Nitroglycerin (Nitroglycerin (Inpatient Use) 0.4 Mg Tab.Subl) 0.4 mg SUBLINGUAL Q5M PRN PRN Reason: CARDIAC/CHEST PAIN Ondansetron HCl (Ondansetron 4 Mg/2 Ml Vial) 4 mg IV Q8H PRN PRN PRN Reason: NAUSEA/VOMITING Pravastatin Sodium (Pravastatin 20 Mg Tablet) 20 mg PO QHS [facility] Last Admin: 03/10/20 00:10 Dose: 20 mg Documented by: Prochlorperazine Edisylate (Prochlorperazine 10 Mg/2 Ml Vial) 5 mg IV Q4H PRN PRN PRN Reason: Breakthrough nausea/vomiting Psyllium Hydrophilic Mucilloid (Psyllium 1 Packet) 1 packet PO DAILY PRN PRN PRN Reason: Constipation Senna/Docusate Sodium (Senna/Docusate Sodium 1 Tablet) 2 tablet PO BID PRN PRN PRN Reason: Constipation Sodium Chloride (0.9% Saline Lock 10 Ml Syringe) 10 - 40 ml IV UD PRN PRN Reason: SALINE FLUSH Last Admin: 03/10/20 10:10 Dose: 10 ml Documented by: Tamsulosin HCl (Tamsulosin Hcl 0.4 Mg Capsule) 0.4 mg PO DAILY@1730 [facility] Last Admin: 03/09/20 17:18 Dose: 0.4 mg Documented by: Throat Lozenges (Benzocaine/Menthol 1 Lozenge) 1 lozenge MUCOUS MEM Q2H PRN PRN PRN Reason: SORE THROAT Last Admin: 03/10/20 00:02 Dose: 1 lozenge Documented by: Medical Necessity - Tobacco Use Smoking Status: Former smoker Tobacco Use: Cigarettes Route of nutrition/ use of supplements: [] Nutritional Intake: [] IV Site: [] Nicolas Catheter: [] - Assessment/Plan Antibiotics: [] Assessment/Plan: [] Active and Suspected Problems (Last Reviewed 01/14/20 @ 10:56 by Migdalia Fisher) Hypoxia (Acute) Pneumonia due to COVID-19 virus (Acute) Elevated LFTs (Acute) covid with hypoxia - he reports sx started 03/04, had (+) test 03/01. On dex. Held plaquenil while on remdesivr. D-dimer was 6, CT neg for PE, will increase lovenox to intermediate dose. Having sputum, and cx with s.pneumo. Will start ceftriaxone. Will follow
[2020-03-10] MEDS: Tamsulosin HCl 0.4 MG Capsule PO (16:37)
[2020-03-10] MEDS: Carvedilol 3.125 MG TABLET PO (21:25)
[2020-03-10] MEDS: Donepezil HCl 10 MG Tablet PO (21:26)
[2020-03-11] MEDS: Loperamide 2 MG Capsule 4 MG PO (02:30)
[2020-03-11 02:37] VITALS: RESP 20
[2020-03-11 02:45] VITALS: BP 130/73; PULSE 61; RESP 20; TEMP 36.4; O2SAT 95
[2020-03-11 07:46] LABS: Hematocrit 36.3 % (40-54); Hemoglobin 11.8 g/dL (13.0-16.5); Mean Corp Hgb Conc 32.5 g/dL (32-36); Mean Corpuscular Volume 95.3 fL (80-94); Mean Platelet Vol. 10.2 fl (6.2-12.0); Platelet Count 126 K/mm3 (150-450); RBC Distribution Width CV 15.6 % (11.6-14.6); RBC Distribution Width SD 55.4 fl (35.1-43.9); Red Blood Count 3.81 M/mm3 (4.6-6.2); White Blood Count 4.4 K/mm3 (4.4-11.0)
--- NOTE | 2020-03-11 08:08 | PN_ITS ---
Patient Problems: Active and Suspected Problems (Last Reviewed 01/14/20 @ 10:56 by Migdalia Fisher) Hypoxia (Acute) Pneumonia due to COVID-19 virus (Acute) Elevated LFTs (Acute) Reason for Visit: Follow-up for acute hypoxic respiratory secondary to pneumonia Objective: No fever. Blood pressure is good. Respiratory rate 20. On 2 L of oxygen. Patient feels improvement in shortness of breath and dyspnea. General: Alert, Oriented x3, Cooperative. HEENT: Atraumatic, PERRLA, EOMI, Normocephalic Oral: No Gingival or Mucosal Lesions/ Ulcerations Neck: Supple, No JVD, Negative Carotid Bruits Lungs: Air entry grossly diminished in bilateral lung bases. Mild bilateral expiratory rhonchi and wheezing Cardiovascular: Regular rate, Regular Rhythm, Normal S1, Normal S2, systolic murmur over LLSB Abdomen: Bowel Sounds Present, Soft, Non Tender, Non-Distended : No renal angle tenderness. No suprapubic tenderness. Extremities: No edema, Capillary Refill Less than 3 Seconds Skin: Bruising both arms. No rashes, No breakdown Musculoskeletal: No Tenderness to Palpation of Joints or Extremities. Loss of subcutaneous fat with mild to moderate muscle atrophy of extremities. Neurological: Cranial nerves II-XII grossly intact, Deep Tendon Reflexes 2+/4 and Symmetrical, Neuro grossly intact Psych/Mental Status: Appropriate and normal affect. Vitals/I&O's: Vital Signs Temp Pulse Resp BP Pulse Ox 97.5 F L 61 20 H 130/73 H 95 03/11/20 02:45 03/11/20 02:45 03/11/20 02:45 03/11/20 02:45 03/11/20 02:45 Oxygen Flow Rate (L/min) 2 Oxygen Delivery Method Nasal Cannula Weight: 166 lb 3.657 oz Body Mass Index (BMI) 22.7 Intake and Output for Last 24 Hours 03/09/20 03/10/20 03/11/20 23:59 23:59 23:59 Intake Total 2210 / 2210 300 / 600 300 / 300 Output Total 300 / 550 250 / 250 Balance 1910 / 1660 50 / 350 300 / 300 Microbiology Past 72 Hours 03/08/20 17:30 Sputum, Expectorated/Coughed Gram Stain - Final 03/08/20 17:30 Sputum, Expectorated/Coughed Respiratory Culture - Final Streptococcus pneumoniae 03/08/20 11:25 Blood Culture (Wb) - Right Forearm Blood Culture - Preliminary No growth in 48 hours. 03/08/20 10:54 Blood Culture (Wb) - Left Forearm Blood Culture - Preliminary No growth in 48 hours. 03/08/20 22:50 Urine, Clean Catch Legionella Antigen - Final 03/08/20 22:50 Urine, Clean Catch Streptococcus pneumoniae Antigen (M - Final 03/08/20 15:25 Mucosa - Nasopharyngeal Respiratory Panel (PCR) - Final Laboratory Results 03/11/20 07:00: WBC 4.4, RBC 3.81 L, Hgb 11.8 L, Hct 36.3 L, MCV 95.3 H, MCH 31.0, MCHC 32.5, RDW Std Deviation 55.4 H, RDW Coeff of Arcelia 15.6 H, Plt Count 126 L, MPV 10.2 03/11/20 07:00: Sodium Pending, Potassium Pending, Chloride Pending, Carbon Dioxide Pending, Anion Gap Pending, BUN Pending, Creatinine Pending, Est GFR (MDRD) Af Amer Pending, Est GFR (MDRD) Non-Af Pending, BUN/Creatinine Ratio Pending, Glucose Pending, Calcium Pending, Total Bilirubin Pending, AST Pending, ALT Pending, Alkaline Phosphatase Pending, Total Protein Pending, Albumin Pending Current Medications Acetaminophen (Acetaminophen 325 Mg Tablet) 650 mg PO Q4H PRN PRN PRN Reason: Pain Score 1-10/Temp > 100.7 F Acetaminophen (Acetaminophen 650 Mg Suppository) 650 mg RECTAL Q4H PRN PRN PRN Reason: Pain Score 1-10/Temp > 100.7 F Albuterol Sulfate (Albuterol Sulfate 8 Gm Inhaler (60 Puffs)) 4 - 8 puff INHALATION Q4H PRN PRN PRN Reason: Dyspnea, wheezing Last Admin: 03/09/20 00:40 Dose: 4 puff Documented by: Amiodarone HCl (Amiodarone 200 Mg Tablet) 200 mg PO DAILY [facility] Last Admin: 03/10/20 10:11 Dose: 200 mg Documented by: Aspirin (Aspirin E.C. 81 Mg Tablet) 81 mg PO DAILY [facility] Last Admin: 03/10/20 10:11 Dose: 81 mg Documented by: Carvedilol (Carvedilol 3.125 Mg Tablet) 3.125 mg PO BID [facility] Last Admin: 03/10/20 21:25 Dose: 3.125 mg Documented by: Clopidogrel Bisulfate (Clopidogrel Bisulfate 75 Mg Tablet) 75 mg PO DAILY [facility] Last Admin: 03/10/20 10:11 Dose: 75 mg Documented by: Colchicine (Colchicine 0.6 Mg Tablet) 0.6 mg PO DAILY [facility] Last Admin: 03/10/20 10:11 Dose: 0.6 mg Documented by: Dexamethasone (Dexamethasone 4 Mg Tablet) 6 mg PO DAILY [facility] Stop: 03/17/20 10:01 Last Admin: 03/10/20 10:11 Dose: 6 mg Documented by: Donepezil HCl (Donepezil Hcl 10 Mg Tablet) 10 mg PO QHS [facility] Last Admin: 03/10/20 21:26 Dose: 10 mg Documented by: Enoxaparin Sodium (Enoxaparin 30 Mg/0.3 Ml Syringe) 30 mg SC BID [facility] Last Admin: 03/10/20 21:27 Dose: 30 mg Documented by: Finasteride (Finasteride 5 Mg Tablet) 5 mg PO DAILY [facility] Last Admin: 03/10/20 10:11 Dose: 5 mg Documented by: Guaifenesin (Guaifenesin 10 Ml Udc (200mg/10ml)) 20 ml PO Q4H PRN PRN PRN Reason: COUGH Last Admin: 03/09/20 00:49 Dose: 20 ml Documented by: Hydralazine HCl (Hydralazine 20 Mg/Ml Vial) 10 mg IV Q4H PRN PRN PRN Reason: SBP > 160 Hydroxychloroquine Sulfate (Hydroxychloroquine 200 Mg Tablet) 200 mg PO DAILY [facility] Remdesivir 100 mg/ Sodium (Chloride) 250 mls @ 125 mls/hr IV DAILY [facility]; Protocol Stop: 03/12/20 11:59 Last Infusion: 03/10/20 12:09 Dose: Infused Documented by: Ceftriaxone Sodium 2 gm/ (Sodium Chloride) 50 mls @ 100 mls/hr IV Q24 [facility] Last Infusion: 03/10/20 15:00 Dose: Infused Documented by: Isosorbide Mononitrate (Isosorbide Mononitrate 30 Mg Tablet) 30 mg PO DAILY [facility] Last Admin: 03/10/20 10:22 Dose: Not Given Documented by: Levothyroxine Sodium (Levothyroxine 75 Mcg Tablet) 75 mcg PO DAILY [facility] Last Admin: 03/10/20 10:11 Dose: 75 mcg Documented by: Loperamide HCl (Loperamide 2 Mg Capsule) 4 mg PO Q6H PRN PRN PRN Reason: Diarrhea Last Admin: 03/11/20 02:30 Dose: 4 mg Documented by: Melatonin (Melatonin 10 Mg Tablet) 5 mg PO QHS [facility] Last Admin: 03/10/20 21:26 Dose: 5 mg Documented by: Nitroglycerin (Nitroglycerin (Inpatient Use) 0.4 Mg Tab.Subl) 0.4 mg SUBLINGUAL Q5M PRN PRN Reason: CARDIAC/CHEST PAIN Ondansetron HCl (Ondansetron 4 Mg/2 Ml Vial) 4 mg IV Q8H PRN PRN PRN Reason: NAUSEA/VOMITING Pravastatin Sodium (Pravastatin 20 Mg Tablet) 20 mg PO QHS [facility] Last Admin: 03/10/20 21:26 Dose: 20 mg Documented by: Prochlorperazine Edisylate (Prochlorperazine 10 Mg/2 Ml Vial) 5 mg IV Q4H PRN PRN PRN Reason: Breakthrough nausea/vomiting Psyllium Hydrophilic Mucilloid (Psyllium 1 Packet) 1 packet PO DAILY PRN PRN PRN Reason: Constipation Senna/Docusate Sodium (Senna/Docusate Sodium 1 Tablet) 2 tablet PO BID PRN PRN PRN Reason: Constipation Sodium Chloride (0.9% Saline Lock 10 Ml Syringe) 10 - 40 ml IV UD PRN PRN Reason: SALINE FLUSH Last Admin: 03/10/20 21:27 Dose: 10 ml Documented by: Tamsulosin HCl (Tamsulosin Hcl 0.4 Mg Capsule) 0.4 mg PO DAILY@1730 [facility] Last Admin: 03/10/20 16:37 Dose: 0.4 mg Documented by: Throat Lozenges (Benzocaine/Menthol 1 Lozenge) 1 lozenge MUCOUS MEM Q2H PRN PRN PRN Reason: SORE THROAT Last Admin: 03/10/20 21:25 Dose: 1 lozenge Documented by: Medical Necessity - Tobacco Use Smoking Status: Former smoker Tobacco Use: Cigarettes Assessment/Plan All Active Problems (Last Reviewed 01/14/20 @ 10:56 by Migdalia Fisher) Orthostatic hypotension (Acute) Generalized weakness (Acute) Hypoxia (Acute) Pneumonia due to COVID-19 virus (Acute) Elevated LFTs (Acute) Exertional angina (Acute) Unstable angina (Acute) Dysrhythmia, cardiac (Acute) Chest pain (Acute) Angina pectoris (Acute) Acute on chronic combined systolic and diastolic heart failure (Resolved) Chest pain (Resolved) Fatigue (Resolved) Hypoxia (Resolved) Myalgia (Resolved) The patient is 84-year-old gentleman with history of chronic combined heart failure, EF 20%, coronary artery disease paroxysmal V. tach, CKD stage IV and other comorbidities was admitted 03/08 with fever, chills headaches, generalized myalgia, abdominal cramping, nausea and loose stool decreased sense of taste and smell cough and dyspnea started on 03/04 consistent with COVID-19 pneumonia. 1. Acute respiratory insufficiency and severe sepsis from COVID-19 pneumonia bacterial superinfection due to Streptococcus pneumoniae bacterial pneumonia: Patient diagnosed with Covid on 03/01/2020. Has pancytopenia. Leukopenia with lateral lymphopenia, ALC 0.23 thousand. Platelet count 112,000. D-dimer elevated 6.05. On Decadron and remdesivir. D-dimer is elevated 6.05. Fibrinogen normal. Lactic acid 2.2, repeat normal. Liver chemistry shows elevated transaminases but normal bilirubin. Elevated inflammatory markers CRP, LDH and BNP. ID consult. 03/10: Sputum culture is positive of 3+ Streptococcus pneumoniae. Patient is on ceftriaxone 2 g daily. Advised aggressive incentive spirometry and chest physiotherapy. Continue above medications. 03/11: ID consult reviewed. Agree with ceftriaxone. Patient pulse ox 94% on 2 L of oxygen. 2. CKD stage IV: Admitted with BUN/creatinine 27/1.89. BUN/creatinine improving. Electrolytes are within acceptable limit. 03/10: BUN and creatinine stable and improvement in creatinine. 03/11: BUN/creatinine improving. Electrolytes within normal limit. 3. Cardiovascular conditions: Coronary artery disease status post LAD stent, ischemic cardiomyopathy, EF 20%, paroxysmal V. tach: Echo on 11/02/2019: Mildly dilated left ventricle. Severe segmental systolic dysfunction (see wall motion). The estimated ejection fraction is 20 %. Mild concentric left ventricular hypertrophy. Apical false tendon noted. The left atrium is mildly enlarged. Mild diffuse mitral valve thickening. Mild papillary muscle dysfunction of the mitral valve. Trivial mitral valve insufficiency. Mild tricuspid valve insufficiency. Mild focal aortic valve calcification. Mild-Moderate (1-2+) aortic valve insufficiency. Mild (1+) pulmonic valve insufficiency. Right ventricular systolic pressure estimated to be 30 mmHg. Diastolic function is indeterminate. Patient home cardiac medications continued. On amiodarone, carvedilol, Plavix, 03/10: Mild hypotension in the morning. Patient looks mildly dehydrated therefore increased increased water intake and blood pressure recovered. Patient on carvedilol, Emetrol and isosorbide mononitrate with holding parameters. 4. Acute COVID-19 viral hepatitis: ALT 79, AST 100, total bili normal. 03/11: Improvement in transaminases. Total bili normal. Hypothyroidism, continue levothyroxine 5. Chronic arthritis, unclear if this is rheumatoid arthritis. Patient is on Plaquenil. Hold prednisone. Patient also history of gout and is on colchicine. 6. BPH, continue finasteride and Flomax 7. Diabetes mellitus type 2: In BMP and glucoses normal 83, A1c 5.2. DVT ppx-Lovenox dose increased to 30 mg twice daily with improvement in creatinine clearance. 8. CODE STATUS - DNR CCA no intubation Discharge plan: Patient has returned to home from recent shelter admission. His and children wants the patient to go home with home health health care sanitary technician. Discussed with the window caser. Microbiology Past 72 Hours 03/08/20 11:25 Blood Culture (Wb) - Right Forearm Blood Culture - Preliminary No growth in 48 hours. 03/08/20 10:54 Blood Culture (Wb) - Left Forearm Blood Culture - Preliminary No growth in 48 hours. 03/08/20 17:30 Sputum, Expectorated/Coughed Gram Stain - Final 03/08/20 17:30 Sputum, Expectorated/Coughed Respiratory Culture - Preliminary Streptococcus pneumoniae 03/08/20 22:50 Urine, Clean Catch Legionella Antigen - Final 03/08/20 22:50 Urine, Clean Catch Streptococcus pneumoniae Antigen (M - Final 03/08/20 15:25 Mucosa - Nasopharyngeal Respiratory Panel (PCR) - Final Laboratory Results 03/10/20 06:30: WBC 5.2, RBC 3.78 L, Hgb 11.8 L, Hct 36.3 L, MCV 96.0 H, MCH 31.2, MCHC 32.5, RDW Std Deviation 55.9 H, RDW Coeff of Arcelia 15.7 H, Plt Count 122 L, MPV 9.4 03/10/20 06:30: Sodium 136, Potassium 4.0, Chloride 107, Carbon Dioxide 21.0, Anion Gap 8, BUN 43 H, Creatinine 1.39 H, Estim Creat Clear Calc 41.80, Est GFR (MDRD) Af Amer 63, Est GFR (MDRD) Non-Af 52 L, BUN/Creatinine Ratio 30.9 H, Glucose 93, Calcium 8.7, Total Bilirubin 0.90, AST 86 H, ALT 73 H, Alkaline Phosphatase 87, Total Protein 5.9 L, Albumin 2.5 L, Globulin 3.4, Albumin/Globulin Ratio 0.7 L Clinical Impression(s) from Imaging Studies Chest X-Ray 03/08/20 11:10 IMPRESSION: Stable examination. No acute abnormality is seen. Electronically Signed: Pablito Lloyd, at 12:07 EST , Service support , Chest CTA 03/08/20 11:41 IMPRESSION: Groundglass infiltrate seen in the posterolateral aspect of the right upper lobe as well as the right lower lobe superimposed on chronic interstitial fibrosis and honeycombing. Electronically Signed: Pablito Lloyd, at 12:25 EST , Service support , Inpatient E&M: [id number] Subs Hosp L2
[2020-03-11 08:15] LABS: ALB/GLOB Ratio 0.6 RATIO (0.9-2.4); AST(SGOT) 61 U/L (15-37); Alanine Aminotransfer ALT/SGPT 63 U/L (16-61); Albumin, Serum 2.4 g/dL (3.2-5.0); Alkaline Phosphatase 86 U/L (45-117); Anion Gap 8 (5-15); BUN 40 mg/dL (7-18); BUN/Creat Ratio 35.7 RATIO (10-20); Calcium,Total 8.7 mg/dL (8.5-10.1); Chloride 109 mmol/L (98-107); Creatinine, Serum 1.12 mg/dL (0.70-1.30); EST Glomerular Filtration Rate 66 mL/min (>60); Est Glom Filt Rate - Afr Amer 80 mL/min (>60); Estimated Creatinine Clearance 52.29 ml/min; Globulin 3.7 g/dL (2.2-4.2); Glucose 90 mg/dL (74-106); Potassium 3.9 mmol/L (3.5-5.1); Protein, Total 6.1 g/dL (6.4-8.2); Sodium Level 138 mmol/L (136-145)
[2020-03-11 09:15] VITALS: BP 111/56; PULSE 65; RESP 18; TEMP 36.3; O2SAT 94
[2020-03-11] MEDS: Enoxaparin 30 MG/0.3 ML Syringe SC ×2 (09:22→21:05)
[2020-03-11] MEDS: Levothyroxine 75 MCG Tablet PO (09:22)
[2020-03-11] MEDS: Amiodarone 200 MG Tablet PO (09:22)
[2020-03-11] MEDS: Carvedilol 3.125 MG TABLET PO ×2 (09:22→21:05)
[2020-03-11] MEDS: Finasteride 5 MG Tablet PO (09:22)
[2020-03-11] MEDS: Aspirin E.C. 81 MG Tablet PO (09:22)
[2020-03-11] MEDS: Isosorbide Mononitrate 30 MG Tablet PO (09:22)
[2020-03-11] MEDS: Clopidogrel Bisulfate 75 MG Tablet PO (09:22)
[2020-03-11] MEDS: dexAMETHasone 4 MG Tablet 6 MG PO (09:22)
[2020-03-11 14:45] VITALS: O2SAT 99
[2020-03-11 15:15] VITALS: BP 124/77; PULSE 62; RESP 20; TEMP 36.3; O2SAT 94
[2020-03-11] MEDS: Tamsulosin HCl 0.4 MG Capsule PO (18:03)
[2020-03-11] MEDS: Pravastatin 20 MG Tablet PO (21:04)
[2020-03-11] MEDS: Donepezil HCl 10 MG Tablet PO (21:04)
[2020-03-11] MEDS: MELATONIN 10 MG TABLET 5 MG PO (21:04)
[2020-03-11 22:07] VITALS: BP 115/68; PULSE 81; RESP 17; TEMP 36.6; O2SAT 95
[2020-03-12] VITALS (8 sets, daily range): BP systolic 92–138; BP diastolic 54–76; PULSE 62–74; RESP 16–18; TEMP 36.5–36.8; O2SAT 90–99
--- NOTE | 2020-03-12 07:44 | PCM.PN.HOSP ---
Patient Problems: Active and Suspected Problems (Last Reviewed 01/14/20 @ 10:56 by Migdalia Fisher) Hypoxia (Acute) Pneumonia due to COVID-19 virus (Acute) Elevated LFTs (Acute) Reason for Visit: Follow-up for acute COVID-19 pneumonia and hypoxia. Objective: Afebrile. Heart rate and blood pressure in normal range. On 2 L of oxygen. Patient has mild cough mainly dry. No significant leg edema. Physical exam General: Alert, Oriented x3, Cooperative HEENT: Atraumatic, PERRLA, EOMI, Normocephalic Oral: No Gingival or Mucosal Lesions/ Ulcerations Neck: Supple, No JVD, Negative Carotid Bruits Lungs: Air entry diminished in bilateral lung bases. No crepitation/rhonchi Cardiovascular: Regular rate, Regular Rhythm, Normal S1, Normal S2, No murmurs Abdomen: Bowel Sounds Present, Soft, Non Tender, Non-Distended : No renal angle tenderness. No suprapubic tenderness. Extremities: No edema, Capillary Refill Less than 3 Seconds Skin: No rashes, No breakdown Musculoskeletal: No Tenderness to Palpation of Joints or Extremities Neurological: Cranial nerves II-XII grossly intact, Deep Tendon Reflexes 2+/4 and Symmetrical, Neuro grossly intact Psych/Mental Status: Normal Affect, Appropriate. Vitals/I&O's: Vital Signs Temp Pulse Resp BP Pulse Ox 97.9 F 74 17 138/74 H 97 03/12/20 04:00 03/12/20 04:00 03/12/20 04:00 03/12/20 04:00 03/12/20 04:00 Oxygen Flow Rate (L/min) 2 Oxygen Delivery Method Nasal Cannula Weight: 164 lb 7.437 oz Body Mass Index (BMI) 22.7 Intake and Output for Last 24 Hours 03/10/20 03/11/20 03/12/20 23:59 23:59 23:59 Intake Total 300 / 600 600 / 800 200 / 200 Output Total 250 / 250 650 / 650 Balance 50 / 350 600 / 450 -450 / -450 Microbiology Past 72 Hours 03/08/20 17:30 Sputum, Expectorated/Coughed Gram Stain - Final 03/08/20 17:30 Sputum, Expectorated/Coughed Respiratory Culture - Final Streptococcus pneumoniae 03/08/20 11:25 Blood Culture (Wb) - Right Forearm Blood Culture - Preliminary No growth in 48 hours. 03/08/20 10:54 Blood Culture (Wb) - Left Forearm Blood Culture - Preliminary No growth in 48 hours. Laboratory Results 03/11/20 07:00: WBC 4.4, RBC 3.81 L, Hgb 11.8 L, Hct 36.3 L, MCV 95.3 H, MCH 31.0, MCHC 32.5, RDW Std Deviation 55.4 H, RDW Coeff of Arcelia 15.6 H, Plt Count 126 L, MPV 10.2 03/11/20 07:00: Sodium 138, Potassium 3.9, Chloride 109 H, Carbon Dioxide 21.0, Anion Gap 8, BUN 40 H, Creatinine 1.12, Estim Creat Clear Calc 52.29, Est GFR (MDRD) Af Amer 80, Est GFR (MDRD) Non-Af 66, BUN/Creatinine Ratio 35.7 H, Glucose 90, Calcium 8.7, Total Bilirubin 0.70, AST 61 H, ALT 63 H, Alkaline Phosphatase 86, Total Protein 6.1 L, Albumin 2.4 L, Globulin 3.7, Albumin/Globulin Ratio 0.6 L Current Medications Acetaminophen (Acetaminophen 325 Mg Tablet) 650 mg PO Q4H PRN PRN PRN Reason: Pain Score 1-10/Temp > 100.7 F Acetaminophen (Acetaminophen 650 Mg Suppository) 650 mg RECTAL Q4H PRN PRN PRN Reason: Pain Score 1-10/Temp > 100.7 F Albuterol Sulfate (Albuterol Sulfate 8 Gm Inhaler (60 Puffs)) 4 - 8 puff INHALATION Q4H PRN PRN PRN Reason: Dyspnea, wheezing Last Admin: 03/09/20 00:40 Dose: 4 puff Documented by: Amiodarone HCl (Amiodarone 200 Mg Tablet) 200 mg PO DAILY [facility] Last Admin: 03/11/20 09:22 Dose: 200 mg Documented by: Aspirin (Aspirin E.C. 81 Mg Tablet) 81 mg PO DAILY [facility] Last Admin: 03/11/20 09:22 Dose: 81 mg Documented by: Carvedilol (Carvedilol 3.125 Mg Tablet) 3.125 mg PO BID [facility] Last Admin: 03/11/20 21:05 Dose: 3.125 mg Documented by: Clopidogrel Bisulfate (Clopidogrel Bisulfate 75 Mg Tablet) 75 mg PO DAILY [facility] Last Admin: 03/11/20 09:22 Dose: 75 mg Documented by: Colchicine (Colchicine 0.6 Mg Tablet) 0.6 mg PO DAILY [facility] Last Admin: 03/11/20 09:22 Dose: 0.6 mg Documented by: Dexamethasone (Dexamethasone 4 Mg Tablet) 6 mg PO DAILY [facility] Stop: 03/17/20 10:01 Last Admin: 03/11/20 09:22 Dose: 6 mg Documented by: Donepezil HCl (Donepezil Hcl 10 Mg Tablet) 10 mg PO QHS [facility] Last Admin: 03/11/20 21:04 Dose: 10 mg Documented by: Enoxaparin Sodium (Enoxaparin 30 Mg/0.3 Ml Syringe) 30 mg SC BID [facility] Last Admin: 03/11/20 21:05 Dose: 30 mg Documented by: Finasteride (Finasteride 5 Mg Tablet) 5 mg PO DAILY [facility] Last Admin: 03/11/20 09:22 Dose: 5 mg Documented by: Guaifenesin (Guaifenesin 10 Ml Udc (200mg/10ml)) 20 ml PO Q4H PRN PRN PRN Reason: COUGH Last Admin: 03/09/20 00:49 Dose: 20 ml Documented by: Hydralazine HCl (Hydralazine 20 Mg/Ml Vial) 10 mg IV Q4H PRN PRN PRN Reason: SBP > 160 Hydroxychloroquine Sulfate (Hydroxychloroquine 200 Mg Tablet) 200 mg PO DAILY [facility] Remdesivir 100 mg/ Sodium (Chloride) 250 mls @ 125 mls/hr IV DAILY [facility]; Protocol Stop: 03/12/20 11:59 Last Infusion: 03/11/20 14:28 Dose: Infused Documented by: Ceftriaxone Sodium 2 gm/ (Sodium Chloride) 50 mls @ 100 mls/hr IV Q24 [facility] Last Infusion: 03/11/20 11:07 Dose: Infused Documented by: Isosorbide Mononitrate (Isosorbide Mononitrate 30 Mg Tablet) 30 mg PO DAILY [facility] Last Admin: 03/11/20 09:22 Dose: 30 mg Documented by: Levothyroxine Sodium (Levothyroxine 75 Mcg Tablet) 75 mcg PO DAILY [facility] Last Admin: 03/11/20 09:22 Dose: 75 mcg Documented by: Loperamide HCl (Loperamide 2 Mg Capsule) 4 mg PO Q6H PRN PRN PRN Reason: Diarrhea Last Admin: 03/11/20 02:30 Dose: 4 mg Documented by: Melatonin (Melatonin 10 Mg Tablet) 5 mg PO QHS [facility] Last Admin: 03/11/20 21:04 Dose: 5 mg Documented by: Nitroglycerin (Nitroglycerin (Inpatient Use) 0.4 Mg Tab.Subl) 0.4 mg SUBLINGUAL Q5M PRN PRN Reason: CARDIAC/CHEST PAIN Ondansetron HCl (Ondansetron 4 Mg/2 Ml Vial) 4 mg IV Q8H PRN PRN PRN Reason: NAUSEA/VOMITING Pravastatin Sodium (Pravastatin 20 Mg Tablet) 20 mg PO QHS [facility] Last Admin: 03/11/20 21:04 Dose: 20 mg Documented by: Prochlorperazine Edisylate (Prochlorperazine 10 Mg/2 Ml Vial) 5 mg IV Q4H PRN PRN PRN Reason: Breakthrough nausea/vomiting Psyllium Hydrophilic Mucilloid (Psyllium 1 Packet) 1 packet PO DAILY PRN PRN PRN Reason: Constipation Senna/Docusate Sodium (Senna/Docusate Sodium 1 Tablet) 2 tablet PO BID PRN PRN PRN Reason: Constipation Sodium Chloride (0.9% Saline Lock 10 Ml Syringe) 10 - 40 ml IV UD PRN PRN Reason: SALINE FLUSH Last Admin: 03/10/20 21:27 Dose: 10 ml Documented by: Tamsulosin HCl (Tamsulosin Hcl 0.4 Mg Capsule) 0.4 mg PO DAILY@1730 [facility] Last Admin: 03/11/20 18:03 Dose: 0.4 mg Documented by: Throat Lozenges (Benzocaine/Menthol 1 Lozenge) 1 lozenge MUCOUS MEM Q2H PRN PRN PRN Reason: SORE THROAT Last Admin: 03/10/20 21:25 Dose: 1 lozenge Documented by: STROKE Vital Signs/Narrative: Vital Signs Temp Pulse Resp BP Pulse Ox 03/12/20 04:00 97.9 F 74 17 138/74 H 97 Medical Necessity - Tobacco Use Smoking Status: Former smoker Tobacco Use: Cigarettes Assessment/Plan All Active Problems (Last Reviewed 01/14/20 @ 10:56 by Migdalia Fisher) Orthostatic hypotension (Acute) Generalized weakness (Acute) Hypoxia (Acute) Pneumonia due to COVID-19 virus (Acute) Elevated LFTs (Acute) Exertional angina (Acute) Unstable angina (Acute) Dysrhythmia, cardiac (Acute) Chest pain (Acute) Angina pectoris (Acute) Acute on chronic combined systolic and diastolic heart failure (Resolved) Chest pain (Resolved) Fatigue (Resolved) Hypoxia (Resolved) Myalgia (Resolved) The patient is 84-year-old gentleman with history of chronic combined heart failure, EF 20%, coronary artery disease paroxysmal V. tach, CKD stage IV and other comorbidities was admitted 03/08 with fever, chills headaches, generalized myalgia, abdominal cramping, nausea and loose stool decreased sense of taste and smell cough and dyspnea started on 03/04 consistent with COVID-19 pneumonia. 1. Acute respiratory insufficiency and severe sepsis from COVID-19 pneumonia bacterial superinfection due to Streptococcus pneumoniae bacterial pneumonia: Patient diagnosed with Covid on 03/01/2020. Has pancytopenia. Leukopenia with lateral lymphopenia, ALC 0.23 thousand. Platelet count 112,000. D-dimer elevated 6.05. On Decadron and remdesivir. D-dimer is elevated 6.05. Fibrinogen normal. Lactic acid 2.2, repeat normal. Liver chemistry shows elevated transaminases but normal bilirubin. Elevated inflammatory markers CRP, LDH and BNP. ID consult. 03/10: Sputum culture is positive of 3+ Streptococcus pneumoniae. Patient is on ceftriaxone 2 g daily. Advised aggressive incentive spirometry and chest physiotherapy. Continue above medications. 03/11: ID consult reviewed. Agree with ceftriaxone. Patient pulse ox 94% on 2 L of oxygen. 03/12: On 2 L of oxygen. 2. CKD stage IV: Admitted with BUN/creatinine 27/1.89. BUN/creatinine improving. Electrolytes are within acceptable limit. 03/10: BUN and creatinine stable and improvement in creatinine. 03/11: BUN/creatinine improving. Electrolytes within normal limit. 03/12: BUN/creatinine improved. Creatinine 1.13 3. Cardiovascular conditions: Coronary artery disease status post LAD stent, ischemic cardiomyopathy, EF 20%, paroxysmal V. tach: Echo on 11/02/2019: Mildly dilated left ventricle. Severe segmental systolic dysfunction (see wall motion). The estimated ejection fraction is 20 %. Mild concentric left ventricular hypertrophy. Apical false tendon noted. The left atrium is mildly enlarged. Mild diffuse mitral valve thickening. Mild papillary muscle dysfunction of the mitral valve. Trivial mitral valve insufficiency. Mild tricuspid valve insufficiency. Mild focal aortic valve calcification. Mild-Moderate (1-2+) aortic valve insufficiency. Mild (1+) pulmonic valve insufficiency. Right ventricular systolic pressure estimated to be 30 mmHg. Diastolic function is indeterminate. Patient home cardiac medications continued. On amiodarone, carvedilol, Plavix, 03/10: Mild hypotension in the morning. Patient looks mildly dehydrated therefore increased increased water intake and blood pressure recovered. Patient on carvedilol, Emetrol and isosorbide mononitrate with holding parameters. 03/12: Patient blood pressure is low 92/54 prior related to medication. He has baseline blood pressure is around 120s. Hydralazine IV as needed discontinued. On low-dose carvedilol 3.125 mg twice daily. Isosorbide mononitrate changed to Monoket 10 mg twice daily with holding parameters. 4. Acute COVID-19 viral hepatitis: ALT 79, AST 100, total bili normal. 03/11: Improvement in transaminases. Total bili normal. Hypothyroidism, continue levothyroxine /: ALT normal. AST 53. 5. Chronic arthritis, unclear if this is rheumatoid arthritis. Patient is on Plaquenil. Hold prednisone. Patient also history of gout and is on colchicine. 6. BPH, continue finasteride and Flomax 7. Diabetes mellitus type 2: In BMP and glucoses normal 83, A1c 5.2. DVT ppx-Lovenox dose increased to 30 mg twice daily with improvement in creatinine clearance. 8. CODE STATUS - DNR CCA no intubation Discharge plan: Patient has returned to home from recent care home admission. His and children wants the patient to go home with home health acute care physical therapist. Discussed with the ed case manager. Microbiology Past 72 Hours 03/08/20 17:30 Sputum, Expectorated/Coughed Gram Stain - Final 03/08/20 17:30 Sputum, Expectorated/Coughed Respiratory Culture - Final Streptococcus pneumoniae 03/08/20 11:25 Blood Culture (Wb) - Right Forearm Blood Culture - Preliminary No growth in 48 hours. 03/08/20 10:54 Blood Culture (Wb) - Left Forearm Blood Culture - Preliminary No growth in 48 hours. Laboratory Results 03/12/20 07:15: Sodium 138, Potassium 4.0, Chloride 109 H, Carbon Dioxide 22.0, Anion Gap 7, BUN 41 H, Creatinine 1.13, Estim Creat Clear Calc 51.35, Est GFR (MDRD) Af Amer 79, Est GFR (MDRD) Non-Af 66, BUN/Creatinine Ratio 36.3 H, Glucose 97, Calcium 8.7, Total Bilirubin 0.60, AST 53 H, ALT 58, Alkaline Phosphatase 87, Total Protein 6.2 L, Albumin 2.4 L, Globulin 3.8, Albumin/Globulin Ratio 0.6 L 03/12/20 07:35: WBC 5.2, RBC 3.86 L, Hgb 12.2 L, Hct 36.6 L, MCV 94.8 H, MCH 31.6, MCHC 33.3, RDW Std Deviation 54.9 H, RDW Coeff of Arcelia 15.7 H, Plt Count 131 L, MPV 9.6 Clinical Impression(s) from Imaging Studies Chest X-Ray 03/08/20 11:10 IMPRESSION: Stable examination. No acute abnormality is seen. Electronically Signed: Pablito Lloyd, at 12:07 EST , Service support , Chest CTA 03/08/20 11:41 IMPRESSION: Groundglass infiltrate seen in the posterolateral aspect of the right upper lobe as well as the right lower lobe superimposed on chronic interstitial fibrosis and honeycombing. Electronically Signed: Pablito Lloyd, at 12:25 EST , Service support , Inpatient E&M: [id number] Subs Hosp L2
[2020-03-12 07:56] LABS: Hematocrit 36.6 % (40-54); Hemoglobin 12.2 g/dL (13.0-16.5); Mean Corp Hgb Conc 33.3 g/dL (32-36); Mean Corpuscular Hgb 31.6 pg (27.0-32.0); Mean Corpuscular Volume 94.8 fL (80-94); Mean Platelet Vol. 9.6 fl (6.2-12.0); Platelet Count 131 K/mm3 (150-450); RBC Distribution Width CV 15.7 % (11.6-14.6); RBC Distribution Width SD 54.9 fl (35.1-43.9); Red Blood Count 3.86 M/mm3 (4.6-6.2); White Blood Count 5.2 K/mm3 (4.4-11.0)
[2020-03-12 08:21] LABS: ALB/GLOB Ratio 0.6 RATIO (0.9-2.4); AST(SGOT) 53 U/L (15-37); Alanine Aminotransfer ALT/SGPT 58 U/L (16-61); Albumin, Serum 2.4 g/dL (3.2-5.0); Alkaline Phosphatase 87 U/L (45-117); Anion Gap 7 (5-15); BUN 41 mg/dL (7-18); BUN/Creat Ratio 36.3 RATIO (10-20); Calcium,Total 8.7 mg/dL (8.5-10.1); Chloride 109 mmol/L (98-107); Creatinine, Serum 1.13 mg/dL (0.70-1.30); EST Glomerular Filtration Rate 66 mL/min (>60); Est Glom Filt Rate - Afr Amer 79 mL/min (>60); Estimated Creatinine Clearance 51.35 ml/min; Globulin 3.8 g/dL (2.2-4.2); Glucose 97 mg/dL (74-106); Protein, Total 6.2 g/dL (6.4-8.2); Sodium Level 138 mmol/L (136-145)
[2020-03-12] MEDS: Amiodarone 200 MG Tablet PO (10:00)
[2020-03-12] MEDS: Enoxaparin 30 MG/0.3 ML Syringe SC ×2 (10:00→20:16)
[2020-03-12] MEDS: Aspirin E.C. 81 MG Tablet PO (10:00)
[2020-03-12] MEDS: Clopidogrel Bisulfate 75 MG Tablet PO (10:00)
[2020-03-12] MEDS: Isosorbide Mononitrate 30 MG Tablet PO (10:00)
[2020-03-12] MEDS: Finasteride 5 MG Tablet PO (10:01)
[2020-03-12] MEDS: Levothyroxine 75 MCG Tablet PO (10:01)
[2020-03-12] MEDS: dexAMETHasone 4 MG Tablet 6 MG PO (10:02)
[2020-03-12] MEDS: Tamsulosin HCl 0.4 MG Capsule PO (20:16)
[2020-03-12] MEDS: Carvedilol 3.125 MG TABLET PO (20:16)
[2020-03-12] MEDS: Pravastatin 20 MG Tablet PO (20:17)
[2020-03-12] MEDS: Donepezil HCl 10 MG Tablet PO (20:17)
[2020-03-12] MEDS: MELATONIN 10 MG TABLET 5 MG PO (20:17)
[2020-03-13 03:45] VITALS: BP 126/68; PULSE 66; RESP 18; TEMP 36.6; O2SAT 96
[2020-03-13 05:26] VITALS: O2SAT 86
[2020-03-13 05:54] VITALS: PULSE 64; O2SAT 92
[2020-03-13 06:33] LABS: Absolute Lymphocyte Count 0.25 X10^3/uL (0.83-4.51); Absolute Neutrophil Count 4.7 X10^3/uL (2.0-7.7); Hematocrit 37.8 % (40-54); Hemoglobin 12.1 g/dL (13.0-16.5); Lymphocyte # 0.25 X10^3/ul (4.0); Lymphocyte % 4.7 % (19-41); Mean Corpuscular Hgb 30.5 pg (27.0-32.0); Mean Corpuscular Volume 95.2 fL (80-94); Mean Platelet Vol. 9.3 fl (6.2-12.0); Monocyte# 0.31 X10^3/uL; Monocyte% 5.9 % (0-10); NRBC Flagged by Analyzer 0 % (0-5); Neutrophil # 4.67 X10^3/uL (2.7-7.7); Neutrophil % 88.3 % (47-70); POSITIVE DIFFERENTIAL YES; Platelet Count 141 K/mm3 (150-450); RBC Distribution Width CV 15.5 % (11.6-14.6); RBC Distribution Width SD 55.7 fl (35.1-43.9); Red Blood Count 3.97 M/mm3 (4.6-6.2); White Blood Count 5.3 K/mm3 (4.4-11.0)
[2020-03-13 06:39] LABS: Differential Indicated SCAN CRITERIA MET
[2020-03-13 06:56] LABS: Anion Gap 5 (5-15); BUN 37 mg/dL (7-18); BUN/Creat Ratio 35.6 RATIO (10-20); Chloride 109 mmol/L (98-107); Creatinine, Serum 1.04 mg/dL (0.70-1.30); EST Glomerular Filtration Rate 72 mL/min (>60); Est Glom Filt Rate - Afr Amer 87 mL/min (>60); Estimated Creatinine Clearance 55.34 ml/min; Glucose 104 mg/dL (74-106); Potassium 4.1 mmol/L (3.5-5.1); Sodium Level 138 mmol/L (136-145)
--- NOTE | 2020-03-13 07:29 | PCM.DC ---
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) Implant: 06/2000; Generator change: 03/17/2008 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) Diabetes mellitus type 2 in nonobese (Chronic) Sustained ventricular tachycardia (Chronic) Hypothyroidism (Chronic) You will use the following diet at home:: Calorie/Carbohydrate Controlled (specify 1200, 1400, etc) - Carb controlled diet., Cardiac Your food should be the consistency of: Regular Your liquids should be the consistency of: Regular/Thin Discharge Activity: May Not Drive Weight Bearing Status: Weight bearing as tolerated Call your doctor if you observe: Fever of 101 or Higher, Numbness or Tingling, Change in Color, Inability to urinate, Inability to have a bowel movement, Shortness of breath, Dizziness, Fainting spells, Chest pain, Prolonged hiccoughing, Increased palpitations (irregular heartbeat) Additional Instructions: Plavix is discontinued because patient had PCI, LAD stent in 2006, increased bruising, mild thrombocytopenia, platelet count about 125,000 and patient is on aspirin and Eliquis. Eliquis only for 2 weeks for DVT prophylaxis for COVID-19 infection. Patient has chronic idiopathic thrombocytopenia Allergies/Adverse Reactions: Allergies atorvastatin [From Lipitor] Adverse Reaction (Verified 03/08/20 12:20) myalgia leflunomide [From Arava] Adverse Reaction (Verified 03/08/20 12:20) PROBLEMS WITH MY FEET simvastatin [From Zocor] Adverse Reaction (Verified 03/08/20 12:20) myalgia Medications to take at Discharge Carvedilol [Coreg (Beta Karri)] 3.125 mg PO BID 02/20/20 Colchicine 0.6 mg PO DAILY 02/20/20 Finasteride 5 mg PO DAILY 02/20/20 Hydroxychloroquine [Plaquenil] 200 mg PO DAILYCM 02/20/20 Nitroglycerin 0.4 mg SL Q5M PRN 02/20/20 Pravastatin Sodium 20 mg PO DAILY 02/20/20 Tamsulosin HCl 0.4 mg PO DAILY 02/20/20 Amiodarone HCl [Cordarone] 200 mg PO DAILY 03/08/20 Ascorbic Acid [Vitamin C] 500 mg PO DAILY 03/08/20 Aspirin E.C. [Ecotrin] 81 mg PO DAILY@0800 03/08/20 Cholecalciferol (Vitamin D3) [Vitamin D3] 10,000 unit PO DAILY 03/08/20 Donepezil HCl 10 mg PO QHS 03/08/20 Levothyroxine [Synthroid] 75 mcg PO DAILY@0600 03/08/20 Loperamide [Imodium] 4 mg PO Q6H PRN PRN 03/08/20 Melatonin 5 mg PO QHS 03/08/20 Zinc 50 mg PO DAILY 03/08/20 Apixaban [Eliquis] 2.5 mg PO BID #30 tab 03/13/20 Cefdinir [Omnicef [equiv]] 300 mg PO Q12H #6 cap 03/13/20 Dexamethasone [Decadron] 6 mg PO DAILY #6 tab 03/13/20 Isosorbide Mononitrate [Monoket] 10 mg PO BID@0800,1500 #60 tab 03/13/20 Prednisone 2.5 mg PO DAILY #0 03/13/20 The following prescriptions were given: Dexamethasone [Decadron] 6 mg PO DAILY #6 tab Transmission Status: Pending to [facility] Apixaban [Eliquis] 2.5 mg PO BID #30 tab Transmission Status: Pending to [facility] Isosorbide Mononitrate [Monoket] 10 mg PO BID@0800,1500 #60 tab Transmission Status: Pending to [facility] Cefdinir [Omnicef [equiv]] 300 mg PO Q12H #6 cap Transmission Status: Pending to [facility] Primary Care Physician: Abhijeet Medellin DO [Primary Care Provider] - Please follow up with your Primary Care Physician in: in 2 weeks Test Results: Test results from this visit will be discussed in further detail at your follow-up appointment, if applicable. Please Follow Up With: Yefri Caceres MD When: in 4 weeks Please Follow Up With: Richard Crain MD When: in 3-4 weeks Please Follow Up With: Estephania Proctor MD When: For rheumatoid arthritis
[2020-03-13 07:35] VITALS: O2SAT 95
[2020-03-13] MEDS: Levothyroxine 75 MCG Tablet PO (07:36)
[2020-03-13] MEDS: Finasteride 5 MG Tablet PO (07:37)
[2020-03-13] MEDS: dexAMETHasone 4 MG Tablet 6 MG PO (07:37)
[2020-03-13] MEDS: Aspirin E.C. 81 MG Tablet PO (07:37)
[2020-03-13] MEDS: Amiodarone 200 MG Tablet PO (07:37)
[2020-03-13] MEDS: Carvedilol 3.125 MG TABLET PO (07:37)
[2020-03-13] MEDS: Isosorbide Mononitrate 20 MG Tablet 10 MG PO (07:38)
[2020-03-13] MEDS: Enoxaparin 30 MG/0.3 ML Syringe SC (07:39)
[2020-03-13 07:42] VITALS: BP 117/66; PULSE 68; RESP 16; TEMP 36.4; O2SAT 95
[2020-03-13] MEDS: 0.9% Saline Lock 10 ML Syringe IV (09:35)
--- NOTE | 2020-03-13 10:04 | CASEMGMT ---
Addendum entered by Mohini Gomez 03/13/20 11:42: Daughter asked for resources for private hire aide agencies. SW emailed a list to daughter. DIAZ Salcedo Addendum entered by Mohini Gomez 03/13/20 11:13: Discharge instructions completed. BLANKA faxed the discharge instructions to [facility]. [facility], set up a 1:30pm ambulance. SW let pt's daughter know time of pickup, as well as Migdalia at [facility] and pt's RN. No further needs, pt to [facility] today. SW did try to call pt to let him know, his phone is not picking up. SW asked RN to let pt know the time. DIAZ Salcedo Original Note: SW spoke w/daughter this morning in regard to discharge plan. She states pt agreeable to go to SNF but would like to change facilities. SW reviewed facilities in the area that are taking COVID+ pts, reviewed the Medicare star ratings for these facilities off of the Medicare website. Daughter called pt and called this SW back, states that pt has decided to return to [facility]. SW explained will get it arranged and call her back with a time. SW did call [facility], updates faxed as they will review to see if pt needs to return to the COVID+ unit or can go to the regular floor in isolation. Once the discharge instructions are completed SW [facility] and [facility]. DIAZ Salcedo
--- NOTE | 2020-03-13 10:53 | PCM.TXEXTCAR ---
- Diet 03/09/20 15:39 Diet: Regular - General Food consistency:: Mechanical (Minced/Moist) Liquid Consistency:: Regular/Thin Type of Dietary Supplement:: Glucerna Shake Is pt able to select menu?: Yes Diet Comments: 120 ml Glucerna w/ pt meals/ soft foods - Routine Orders/Code Status Suppository Type: Dulcolax 10mg Suppository Frequency: Daily PRN Code Status: DNC-A - No intubation - Therapies Weight Bearing: Weight bearing as tolerated Extremity Affected:: Bilateral Lower Physical Therapy: Eval and Treat Occupational Therapy: Eval and Treat Speech Therapy: Eval and Treat - Allergies/Procedures Done in Hospital Allergies/Adverse Reactions: Allergies atorvastatin [From Lipitor] Adverse Reaction (Verified 03/08/20 12:20) myalgia leflunomide [From Arava] Adverse Reaction (Verified 03/08/20 12:20) PROBLEMS WITH MY FEET simvastatin [From Zocor] Adverse Reaction (Verified 03/08/20 12:20) myalgia - Type of Care/Length of Stay Estimated LOS: Convalescent Care Less Than 30 days Type of Care Needed: Skilled Rehab Potential: Good Prognosis: Good - Additional Orders/Day of Discharge Additional Orders: Plavix is discontinued because patient had PCI, LAD stent in 2006, increased bruising, mild thrombocytopenia, platelet count about 125,000 and patient is on aspirin and Eliquis. Eliquis only for 2 weeks for DVT prophylaxis for COVID-19 infection. Patient has chronic idiopathic thrombocytopenia Day of Discharge: 03/13/20 - Dietary and Speech Recommendations Dietitian Recommendations/Changes: Will liberalize to Regular diet and 120 ml Glucerna shake w/ meals for additional bernadette/pro if consumed d/t pt w/ poor intake at meals. - Follow Up Care Primary Care Physician: Abhijeet Medellin DO [Primary Care Provider] - Please follow up with your Primary Care Physician in: in 2 weeks Please Follow Up With: Yefri Caceres MD When: in 4 weeks Please Follow Up With: Richard Crain MD When: in 3-4 weeks Please Follow Up With: Estephania Proctor MD When: For rheumatoid arthritis
--- NOTE | 2020-03-13 10:55 | DS.PCM_ITS ---
Discharge Date and Diagnosis - Problem List Patient Problems: Active and Suspected Problems (Last Reviewed 01/14/20 @ 10:56 by Migdalia Fisher) Hypoxia (Acute) Pneumonia due to COVID-19 virus (Acute) Elevated LFTs (Acute) Date of Admission: 03/08/20 Date of Discharge: 03/13/20 - Primary Discharge Diagnosis Acute Problems: Active Problems (Last Reviewed 01/14/20 @ 10:56 by Migdalia Fisher) Hypoxia (Acute) Pneumonia due to COVID-19 virus (Acute) Elevated LFTs (Acute) - Secondary Discharge Diagnosis Chronic Problems: Chronic Problems (Last Reviewed 01/14/20 @ 10:56 by Migdalia Fisher) Cognitive impairment (Chronic) Chronic anemia (Chronic) Chronic idiopathic thrombocytopenia (Chronic) Rheumatoid arthritis (Chronic) BPH (benign prostatic hyperplasia) (Chronic) Presence of stent in coronary artery (Chronic ~09/23/06) PTCA and stenting of the LAD and diagonal 09/23/2006 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) Abnormal echocardiogram (Chronic) Mixed hyperlipidemia (Chronic) 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) PTCA and stenting of the LAD and diagonal 09/23/2006 Essential hypertension (Chronic) Mixed sleep apnea (Chronic) BiPAP 17/11 mm of water with a backup rate of 12 Hypersomnolence disorder (Chronic) Dilated cardiomyopathy (Chronic) 15% EF Paroxysmal ventricular tachycardia (Chronic) Abnormal result of cardiovascular function study, unspecified (Chronic) 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) Implant: 06/2000; Generator change: 03/17/2008 Hypothyroidism, iatrogenic (Chronic) 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 tach, CKD stage IV and other comorbidities was admitted 03/08 with fever, chills headaches, generalized myalgia, abdominal cramping, nausea and loose stool decreased sense of taste and smell cough and dyspnea started on 03/04 consistent with COVID-19 pneumonia. 1. Acute respiratory insufficiency and severe sepsis from COVID-19 pneumonia bacterial superinfection due to Streptococcus pneumoniae bacterial pneumonia: Patient diagnosed with Covid on 03/01/2020. Has pancytopenia. Leukopenia with lateral lymphopenia, ALC 0.23 thousand. Platelet count 112,000. D-dimer elevated 6.05. On Decadron and remdesivir. D-dimer is elevated 6.05. Fibrinogen normal. Lactic acid 2.2, repeat normal. Liver chemistry shows elevated transaminases but normal bilirubin. Elevated inflammatory markers CRP, LDH and BNP. He was seen by ID. Sputum culture shows 3+ Streptococcus pneumoniae patient treated with 4 days of IV ceftriaxone and discharged on 3 more days of cefdinir to complete total of 7 days. Patient is in discharge to SNF. Prescription for Decadron given 2. CKD stage IV: Admitted with BUN/creatinine 27/1.89. BUN/creatinine improving. Electrolytes are within acceptable limit. Last BUN/creatinine 37/1.04. 3. Cardiovascular conditions: Coronary artery disease status post LAD stent, ischemic cardiomyopathy, EF 20%, paroxysmal V. tach: Echo on 11/02/2019: Mildly dilated left ventricle. Severe segmental systolic dysfunction (see wall motion). The estimated ejection fraction is 20 %. Mild concentric left ventricular hypertrophy. Apical false tendon noted. The left atrium is mildly enlarged. Mild diffuse mitral valve thickening. Mild papillary muscle dysfunction of the mitral valve. Trivial mitral valve insufficiency. Mild tricuspid valve insufficiency. Mild focal aortic valve calcification. Mild-Moderate (1-2+) aortic valve insufficiency. Mild (1+) pulmonic valve insufficiency. Right ventricular systolic pressure estimated to be 30 mmHg. Diastolic function is indeterminate. Patient home cardiac medications continued. On amiodarone, carvedilol, Plavix. Plavix was discontinued and patient has bruise and on enoxaparin subcu for DVT prophylaxis. Patient had low blood pressure did well. 4. Acute COVID-19 viral hepatitis: ALT 79, AST 100, total bili normal. Improvement in transaminases. Total bili normal. ALT normal, AST 53 53 Hypothyroidism, continue levothyroxine 5. Chronic arthritis, unclear if this is rheumatoid arthritis. Patient is on Plaquenil. Hold prednisone. Patient also history of gout and is on colchicine. 6. BPH, continue finasteride and Flomax 7. Diabetes mellitus type 2: In BMP and glucoses normal 83, A1c 5.2. DVT ppx-Lovenox dose increased to 30 mg twice daily with improvement in creatinine clearance. 8. CODE STATUS - DNR CCA no intubation Plavix is discontinued because patient had PCI, LAD stent in 2006, increased bruising, mild thrombocytopenia, platelet count about 125,000 and patient is on aspirin and Eliquis. Eliquis only for 2 weeks for DVT prophylaxis for COVID-19 infection. Patient has chronic idiopathic thrombocytopenia Discharge medication reconciliation done. Discharge follow-up instructions completed. Discharge process discussed with the patient and all questions were answered to patient's satisfaction. Prescription was given for Decadron, cefdinir, Eliquis for 2 weeks and Mucinex. Discharge to SNF Total time spent, exact 35 minutes on discharge meds reconciliation, examination, coordination of care with nurses and ancillary staff, review of imaging and blood test and discussion with the patient on follow-up instructions Microbiology Past 72 Hours 03/08/20 11:25 Blood Culture (Wb) - Right Forearm Blood Culture - Final No growth in 5 days. 03/08/20 10:54 Blood Culture (Wb) - Left Forearm Blood Culture - Final No growth in 5 days. 03/08/20 17:30 Sputum, Expectorated/Coughed Gram Stain - Final 03/08/20 17:30 Sputum, Expectorated/Coughed Respiratory Culture - Final Streptococcus pneumoniae Laboratory Results 03/13/20 06:05: WBC 5.3, RBC 3.97 L, Hgb 12.1 L, Hct 37.8 L, MCV 95.2 H, MCH 30.5, MCHC 32.0, RDW Std Deviation 55.7 H, RDW Coeff of Arcelia 15.5 H, Plt Count 141 L, MPV 9.3, Immature Gran % (Auto) 1.100 H, Neut % (Auto) 88.3 H, Lymph % (Auto) 4.7 L, [place] % (Auto) 5.9, Eos % (Auto) 0.0, Baso % (Auto) 0.0, Absolute Neuts (auto) 4.7, Absolute Lymphs (auto) 0.25 L, Nucleated RBC % 0 03/13/20 06:05: Sodium 138, Potassium 4.1, Chloride 109 H, Carbon Dioxide 24.0, Anion Gap 5, BUN 37 H, Creatinine 1.04, Estim Creat Clear Calc 55.34, Est GFR (MDRD) Af Amer 87, Est GFR (MDRD) Non-Af 72, BUN/Creatinine Ratio 35.6 H, Glucose 104, Calcium 9.0 Clinical Impression(s) from Imaging Studies Chest X-Ray 03/08/20 11:10 IMPRESSION: Stable examination. No acute abnormality is seen. Electronically Signed: Pablito Lloyd, at 12:07 EST , Service support , Chest CTA 03/08/20 11:41 IMPRESSION: Groundglass infiltrate seen in the posterolateral aspect of the right upper lobe as well as the right lower lobe superimposed on chronic interstitial fibrosis and honeycombing. Electronically Signed: Pablito Lloyd, at 12:25 EST , Service support , [] Patient Problems: Active and Suspected Problems (Last Reviewed 01/14/20 @ 10:56 by Migdalia Fisher) Hypoxia (Acute) Pneumonia due to COVID-19 virus (Acute) Elevated LFTs (Acute) Objective: No shortness of breath, tachypnea. Patient on 2 to 3 L of oxygen. Afebrile. Mild cough. Light yellow thick sputum. Physical exam General: Alert, Oriented x3, Cooperative HEENT: Atraumatic, PERRLA, EOMI, Normocephalic Oral: No Gingival or Mucosal Lesions/ Ulcerations Neck: Supple, No JVD, Negative Carotid Bruits Lungs: Air entry diminished in bilateral lung bases. Bilateral expiratory crepitations. Cardiovascular: Regular rate, Regular Rhythm, Normal S1, Normal S2, No murmurs Abdomen: Bowel Sounds Present, Soft, Non Tender, Non-Distended : No renal angle tenderness. No suprapubic tenderness. Extremities: No edema, Capillary Refill Less than 3 Seconds Skin: No rashes, No breakdown Musculoskeletal: No Tenderness to Palpation of Joints or Extremities Neurological: Cranial nerves II-XII grossly intact, Deep Tendon Reflexes 2+/4 and Symmetrical, Neuro grossly intact Psych/Mental Status: Normal Affect, Appropriate. - Physical Exam Vitals/I&O's: Vital Signs Temp Pulse Resp BP Pulse Ox 97.8 F 64 18 126/68 H 92 03/13/20 03:45 03/13/20 05:54 03/13/20 03:45 03/13/20 03:45 03/13/20 05:54 Oxygen Flow Rate (L/min) 2 Oxygen Delivery Method Nasal Cannula Weight: 163 lb 2.273 oz Body Mass Index (BMI) 22.7 Intake and Output for Last 24 Hours 03/11/20 03/12/20 03/13/20 23:59 23:59 23:59 Intake Total 600 / 800 940 / 940 Output Total 1350 / 1350 250 / 250 Balance 600 / 450 -410 / -410 -250 / -250 Microbiology Past 72 Hours 03/08/20 17:30 Sputum, Expectorated/Coughed Gram Stain - Final 03/08/20 17:30 Sputum, Expectorated/Coughed Respiratory Culture - Final Streptococcus pneumoniae 03/08/20 11:25 Blood Culture (Wb) - Right Forearm Blood Culture - Preliminary No growth in 48 hours. 03/08/20 10:54 Blood Culture (Wb) - Left Forearm Blood Culture - Preliminary No growth in 48 hours. Laboratory Results 03/12/20 07:15: Sodium 138, Potassium 4.0, Chloride 109 H, Carbon Dioxide 22.0, Anion Gap 7, BUN 41 H, Creatinine 1.13, Estim Creat Clear Calc 51.35, Est GFR (MDRD) Af Amer 79, Est GFR (MDRD) Non-Af 66, BUN/Creatinine Ratio 36.3 H, Glucose 97, Calcium 8.7, Total Bilirubin 0.60, AST 53 H, ALT 58, Alkaline Phosphatase 87, Total Protein 6.2 L, Albumin 2.4 L, Globulin 3.8, Albumin/Globulin Ratio 0.6 L 03/12/20 07:35: WBC 5.2, RBC 3.86 L, Hgb 12.2 L, Hct 36.6 L, MCV 94.8 H, MCH 31.6, MCHC 33.3, RDW Std Deviation 54.9 H, RDW Coeff of Arcelia 15.7 H, Plt Count 131 L, MPV 9.6 03/13/20 06:05: WBC 5.3, RBC 3.97 L, Hgb 12.1 L, Hct 37.8 L, MCV 95.2 H, MCH 30.5, MCHC 32.0, RDW Std Deviation 55.7 H, RDW Coeff of [place]cel[place] 15.5 H, Plt Count 141 L, MPV 9.3, Immature Gran % (Auto) 1.100 H, Neut % (Auto) 88.3 H, Lymph % (Auto) 4.7 L, [place] % (Auto) 5.9, Eos % (Auto) 0.0, Baso % (Auto) 0.0, Absolute Neuts (auto) 4.7, Absolute Lymphs (auto) 0.25 L, Nucleated RBC % 0 03/13/20 06:05: Sodium 138, Potassium 4.1, Chloride 109 H, Carbon Dioxide 24.0, Anion Gap 5, BUN 37 H, Creatinine 1.04, Estim Creat Clear Calc 55.34, Est GFR (MDRD) Af Amer 87, Est GFR (MDRD) Non-Af 72, BUN/Creatinine Ratio 35.6 H, Glucose 104, Calcium 9.0 Current Medications Acetaminophen (Acetaminophen 325 Mg Tablet) 650 mg PO Q4H PRN PRN PRN Reason: Pain Score 1-10/Temp > 100.7 F Albuterol Sulfate (Albuterol Sulfate 8 Gm Inhaler (60 Puffs)) 4 - 8 puff INHALATION Q4H PRN PRN PRN Reason: Dyspnea, wheezing Last Admin: 03/09/20 00:40 Dose: 4 puff Documented by: Amiodarone HCl (Amiodarone 200 Mg Tablet) 200 mg PO DAILY [facility] Last Admin: 03/12/20 10:00 Dose: 200 mg Documented by: Aspirin (Aspirin E.C. 81 Mg Tablet) 81 mg PO DAILY [facility] Last Admin: 03/12/20 10:00 Dose: 81 mg Documented by: Carvedilol (Carvedilol 3.125 Mg Tablet) 3.125 mg PO BID [facility] Last Admin: 03/12/20 20:16 Dose: 3.125 mg Documented by: Colchicine (Colchicine 0.6 Mg Tablet) 0.6 mg PO DAILY [facility] Last Admin: 03/12/20 10:01 Dose: 0.6 mg Documented by: Dexamethasone (Dexamethasone 4 Mg Tablet) 6 mg PO DAILY [facility] Stop: 03/17/20 10:01 Last Admin: 03/12/20 10:02 Dose: 6 mg Documented by: Donepezil HCl (Donepezil Hcl 10 Mg Tablet) 10 mg PO QHS [facility] Last Admin: 03/12/20 20:17 Dose: 10 mg Documented by: Enoxaparin Sodium (Enoxaparin 30 Mg/0.3 Ml Syringe) 30 mg SC BID [facility] Last Admin: 03/12/20 20:16 Dose: 30 mg Documented by: Finasteride (Finasteride 5 Mg Tablet) 5 mg PO DAILY [facility] Last Admin: 03/12/20 10:01 Dose: 5 mg Documented by: Guaifenesin (Guaifenesin 10 Ml Udc (200mg/10ml)) 20 ml PO Q4H PRN PRN PRN Reason: COUGH Last Admin: 03/09/20 00:49 Dose: 20 ml Documented by: Hydroxychloroquine Sulfate (Hydroxychloroquine 200 Mg Tablet) 200 mg PO DAILY [facility] Ceftriaxone Sodium 2 gm/ (Sodium Chloride) 50 mls @ 100 mls/hr IV Q24 [facility] Last Infusion: 03/12/20 15:03 Dose: Infused Documented by: Isosorbide Mononitrate (Isosorbide Mononitrate 20 Mg Tablet) 10 mg PO B ID@0800,1500 [facility] Last Admin: 03/12/20 14:36 Dose: Not Given Documented by: Levothyroxine Sodium (Levothyroxine 75 Mcg Tablet) 75 mcg PO DAILY [facility] Last Admin: 03/12/20 10:01 Dose: 75 mcg Documented by: Loperamide HCl (Loperamide 2 Mg Capsule) 4 mg PO Q6H PRN PRN PRN Reason: Diarrhea Last Admin: 03/11/20 02:30 Dose: 4 mg Documented by: Melatonin (Melatonin 10 Mg Tablet) 5 mg PO QHS [facility] Last Admin: 03/12/20 20:17 Dose: 5 mg Documented by: Nitroglycerin (Nitroglycerin (Inpatient Use) 0.4 Mg Tab.Subl) 0.4 mg SUBLINGUAL Q5M PRN PRN Reason: CARDIAC/CHEST PAIN Ondansetron HCl (Ondansetron 4 Mg/2 Ml Vial) 4 mg IV Q8H PRN PRN PRN Reason: NAUSEA/VOMITING Pravastatin Sodium (Pravastatin 20 Mg Tablet) 20 mg PO QHS [facility] Last Admin: 03/12/20 20:17 Dose: 20 mg Documented by: Prochlorperazine Edisylate (Prochlorperazine 10 Mg/2 Ml Vial) 5 mg IV Q4H PRN PRN PRN Reason: Breakthrough nausea/vomiting Psyllium Hydrophilic Mucilloid (Psyllium 1 Packet) 1 packet PO DAILY PRN PRN PRN Reason: Constipation Senna/Docusate Sodium (Senna/Docusate Sodium 1 Tablet) 2 tablet PO BID PRN PRN PRN Reason: Constipation Sodium Chloride (0.9% Saline Lock 10 Ml Syringe) 10 - 40 ml IV UD PRN PRN Reason: SALINE FLUSH Last Admin: 03/10/20 21:27 Dose: 10 ml Documented by: Tamsulosin HCl (Tamsulosin Hcl 0.4 Mg Capsule) 0.4 mg PO DAILY@1730 NELI Last Admin: 03/12/20 20:16 Dose: 0.4 mg Documented by: Throat Lozenges (Benzocaine/Menthol 1 Lozenge) 1 lozenge MUCOUS MEM Q2H PRN PRN PRN Reason: SORE THROAT Last Admin: 03/10/20 21:25 Dose: 1 lozenge Documented by: Home Medications: Medications to take at Discharge Carvedilol [Coreg (Beta Karri)] 3.125 mg PO BID 02/20/20 Colchicine 0.6 mg PO DAILY 02/20/20 Finasteride 5 mg PO DAILY 02/20/20 Hydroxychloroquine [Plaquenil] 200 mg PO DAILYCM 02/20/20 Nitroglycerin 0.4 mg SL Q5M PRN 02/20/20 Pravastatin Sodium 20 mg PO DAILY 02/20/20 Tamsulosin HCl 0.4 mg PO DAILY 02/20/20 Amiodarone HCl [Cordarone] 200 mg PO DAILY 03/08/20 Ascorbic Acid [Vitamin C] 500 mg PO DAILY 03/08/20 Aspirin E.C. [Ecotrin] 81 mg PO DAILY@0800 03/08/20 Cholecalciferol (Vitamin D3) [Vitamin D3] 10,000 unit PO DAILY 03/08/20 Donepezil HCl 10 mg PO QHS 03/08/20 Levothyroxine [Synthroid] 75 mcg PO DAILY@0600 03/08/20 Loperamide [Imodium] 4 mg PO Q6H PRN PRN 03/08/20 Melatonin 5 mg PO QHS 03/08/20 Zinc 50 mg PO DAILY 03/08/20 Apixaban [Eliquis] 2.5 mg PO BID #30 tab 03/13/20 Cefdinir [Omnicef [equiv]] 300 mg PO Q12H #6 cap 03/13/20 Dexamethasone [Decadron] 6 mg PO DAILY #6 tab 03/13/20 Guaifenesin [Mucinex] 1,200 mg PO BID #14 tab.er.12h 03/13/20 Isosorbide Mononitrate [Monoket] 10 mg PO BID@0800,1500 #60 tab 03/13/20 Prednisone 2.5 mg PO DAILY #0 03/13/20 Following Prescriptions Were Given to Patient: Dexamethasone [Decadron] 6 mg PO DAILY #6 tab [facility] Apixaban [Eliquis] 2.5 mg PO BID #30 tab Transmission Status: Received by [facility]IER[facility] Isosorbide Mononitrate [Monoket] 10 mg PO BID@0800,1500 #60 tab Transmission Status: Received by [facility] GUTIER[facility] Guaifenesin [Mucinex] 1,200 mg PO BID #14 tab.er.12h Transmission Status: Received by [facility] Cefdinir [Omnicef [equiv]] 300 mg PO Q12H #6 cap Transmission Status: [facility] Primary Care Physician: Abhijeet Medellin DO [Primary Care Provider] - Medical Necessity - Tobacco Use Smoking Status: Former smoker Tobacco Use: Cigarettes Meaningful Use Info Meaningful Use Diagnoses (Choose all that apply): None applicable Inpatient E&M: 48[address] [facility]
== END 2020-03-13 16:22 | disposition skilled nursing facility (03) | DRG 871 ==
LOC: ED 11:12 → MS2 13:57
PROVIDERS: Internal Medicine Infectious Disease; Admitting Provider Family Medicine; Emergency Provider Emergency Medicine; PCP Family Medicine; Visit Provider Internal Medicine
DX: A41.89 Other specified sepsis (principal); U07.1 COVID-19; J12.82 Pneumonia due to coronavirus disease 2019; J13 Pneumonia due to Streptococcus pneumoniae; D61.818 Other pancytopenia; D69.3 Immune thrombocytopenic purpura; I42.0 Dilated cardiomyopathy; N18.4 Chronic kidney disease, stage 4 (severe); I47.1 Supraventricular tachycardia; B17.8 Other specified acute viral hepatitis; I13.0 Hypertensive heart and chronic kidney disease with heart failure and stage 1 through stage 4 chronic kidney disease, or unspecified chronic kidney disease; I50.42 Chronic combined systolic (congestive) and diastolic (congestive) heart failure; R65.20 Severe sepsis without septic shock; I25.5 Ischemic cardiomyopathy; I95.9 Hypotension, unspecified; R06.89 Other abnormalities of breathing; R09.02 Hypoxemia; E86.0 Dehydration; I25.10 Atherosclerotic heart disease of native coronary artery without angina pectoris; E11.22 Type 2 diabetes mellitus with diabetic chronic kidney disease; E78.2 Mixed hyperlipidemia; E03.9 Hypothyroidism, unspecified; M06.9 Rheumatoid arthritis, unspecified; N40.0 Benign prostatic hyperplasia without lower urinary tract symptoms; F03.90 Unspecified dementia, unspecified severity, without behavioral disturbance, psychotic disturbance, mood disturbance, and anxiety; M10.9 Gout, unspecified; G47.33 Obstructive sleep apnea (adult) (pediatric); Z79.02 Long term (current) use of antithrombotics/antiplatelets; Z79.82 Long term (current) use of aspirin; Z79.890 Hormone replacement therapy; Z79.899 Other long term (current) drug therapy; Z87.891 Personal history of nicotine dependence; Z95.5 Presence of coronary angioplasty implant and graft; Z95.810 Presence of automatic (implantable) cardiac defibrillator
CPT/HCPCS: 36415; 71045; 71275; 80048; 80053; 82550; 83036; 83605; 83615; 83735; 83880; 84145; 84484; 85025; 85027; 85379; 85384; 86140; 87040; 87070; 87077; 87186; 87205; 87449; 87633; 97110; 97162; 97166; 97530; 97535; 99251; 99285; J7030; J7050; Q9967; A4216; G0463; J0696

== ENCOUNTER → 2020-03-21 08:45 | Outpatient (REF) | payer SELFPAY ==
[2020-03-08 14:39] VITALS: BMI 22.7
[2020-03-21 11:51] LABS: Anion Gap 7 (5-15); BUN 44 mg/dL (7-18); BUN/Creat Ratio 34.1 RATIO (10-20); Calcium,Total 8.5 mg/dL (8.5-10.1); Chloride 107 mmol/L (98-107); Creatinine, Serum 1.29 mg/dL (0.70-1.30); EST Glomerular Filtration Rate 56 mL/min (>60); Est Glom Filt Rate - Afr Amer 68 mL/min (>60); Glucose 74 mg/dL (74-106); Potassium 4.5 mmol/L (3.5-5.1); Sodium Level 137 mmol/L (136-145)
== END ==
LOC: OLS.ACH 08:45
PROVIDERS: PCP Family Medicine; Visit Provider Family Medicine
DX: I73.00 Raynaud's syndrome without gangrene (principal)
CPT/HCPCS: 80048